=== PATIENT | female | born 1940 | race Caucasian/White ===

== ENCOUNTER 2020-02-08 08:41 | Outpatient (CLI) | payer MEDICARE, BC, SELFPAY ==
--- NOTE | ~2020-02-08 | US_ITS ---
EXAMINATION: US right upper quadrant DATE: 02/08/2020 09:28 INDICATION: Liver cirrhosis. TECHNIQUE: Multiple grayscale and Doppler ultrasound images of the abdomen were obtained. COMPARISON: Ultrasound 07/15/2019 FINDINGS: The visualized portions of the head, body, and tail of the pancreas are normal. The liver d emonstrates steatosis and surface nodularity, consistent with cirrhosis. There is normal flow in main portal vein. The gallbladder is absent. The common duct is normal and measures 6 mm. IMPRESSION: 1. Cirrhosis of the liver. Reviewed, dictated and finalized at location A. IMPRESSION: 1. Cirrhosis of the liver.
== END 2020-02-08 08:42 | disposition home or self-care (01) ==
PROVIDERS: PCP Nurse Practitioner Adult Health
DX: K74.60 Unspecified cirrhosis of liver (principal); K75.81 Nonalcoholic steatohepatitis (NASH)
CPT/HCPCS: 76705

== ENCOUNTER 2022-09-10 00:19 | Day surgery (SDC) | payer MEDICARE, BC, SELFPAY ==
[2022-08-25 15:08] VITALS: BMI 27.1
--- NOTE | 2022-09-08 15:29 | PM.HPGS ---
History of Present Illness History of Present Illness Consent: Risks, benefits, and alternatives have been discussed and questions answered. Patient agrees to proceed with procedure. Chief complaint: Hx of colon polyps Narrative: Maggie Erazo is a 81 year old female who has a history of polyps. She had 2 polyps removed about 3 years ago. She also has a history of ulcers. She is followed at [facility] for cirrhosis. On her last EGD she was found have grade 2 varices. Review of Systems Review of Systems: All systems reviewed & are unremarkable except as noted in HPI and below PMFSH Past Medical History Medical History Cirrhosis Diabetes Hypertension Social History Social History Smoking status: Never smoker Alcohol intake: never Substance use: never Living arrangements: with family Meds Home Medications and Allergies Home Medications Medication Instructions Recorded Confirmed Type ascorbic acid (vitamin C) 500 mg 500 mg PO DAILY 09/04/19 08/25/22 History capsule calcium-vitamins B6-B12-FA tablet 1 tablet PO DAILY 09/04/19 08/25/22 History cyclosporine 0.05 % eye drops in a 0.05 % ophthalmic (eye) BID 09/04/19 08/25/22 History dropperette (Restasis) montelukast 10 mg tablet 10 mg PO DAILY 09/04/19 08/25/22 History unnyrrosgpod-Pc-qpxj-minerals 1 tablet PO DAILY 09/04/19 08/25/22 History (Multiple Vitamin, Womens tablet) omeprazole 40 mg capsule,delayed 20 mg PO DAILY 09/04/19 08/25/22 History release losartan 25 mg tablet 25 mg PO DAILY 09/13/19 08/25/22 History aspirin 81 mg tablet,delayed 81 mg PO DAILY 10/21/21 09/10/22 History release levothyroxine 125 mcg tablet 75 mcg PO DAILY 10/21/21 08/25/22 History losartan 50 mg tablet 50 mg PO DAILY 10/21/21 08/25/22 History nadolol 40 mg tablet (Corgard) 40 mg PO DAILY 10/21/21 08/25/22 History metformin 500 mg tablet,extended 500 mg PO DAILY 08/25/22 08/25/22 History release 24 hr Allergies Allergy/AdvReac Type Severity Reaction Status Date / Time codeine Allergy Intermediate ABDOMINAL Verified 09/10/22 07:05 CRAMPING/DISTRESS adhesive tape AdvReac Unknown RASH, Verified 09/10/22 07:05 REDNESS Exam Const: General: alert Orientation/consciousness: patient oriented x3 Resp: Auscultation: clear to auscultation bilaterally Cardio: Rhythm: regular rhythm GI: GI Palp: Yes Soft to palpation and No Tenderness to palpation present (GI) Neuro: General: patient oriented x3 Assessment and Plan Assessment and plan (1) Personal history of colonic polyps: Code(s): Z86.010 - Personal history of colonic polyps Status: Acute Assessment and Plan: Colonoscopy with possible biopsy or polypectomy or cautery or injection of substances. (2) Esophageal varices: Code(s): I85.00 - Esophageal varices without bleeding Status: Acute Assessment and Plan: EGD with possible biopsy or dilatation or cautery.
[2022-09-10 07:08] VITALS: BP 160/63; PULSE 73; RESP 18; TEMP 36.1; O2SAT 100; BMI 26.9
[2022-09-10] MEDS: LACTATED RINGERS 1,000 ML 150 ML IV CONT (07:12)
--- NOTE | 2022-09-10 07:37 | P.PNAN_ITS ---
Anes - Initial Pre Proc Eval Procedure: Operation Date: 09/10/22 08:00 Proposed Procedures p Screening Colonoscopy - Zechariah Garcia MD Date/Time: 09/10/22 07:37 Surgeon: Zechariah Garcia MD Pre Op Diagnosis: Hx of colon polyps Patient Data Age: 81 Gender: F Height: 1.6 m Weight: 68.9 kg Last Vital Signs Temp 36.1 C L 09/10/22 07:08 Pulse 73 09/10/22 07:08 Resp 18 09/10/22 07:08 BP 160/63 H 09/10/22 07:08 Pulse Ox 100 09/10/22 07:08 O2 Del Method Room Air 09/10/22 07:08 Allergies Allergy/AdvReac Type Severity Reaction Status Date / Time codeine Allergy Intermediate ABDOMINAL Verified 09/10/22 07:05 CRAMPING/DISTRESS adhesive tape AdvReac Unknown RASH, Verified 09/10/22 07:05 REDNESS Home Medications Medication Instructions Recorded Confirmed Type ascorbic acid (vitamin C) 500 mg 500 mg PO DAILY 09/04/19 08/25/22 History capsule calcium-vitamins B6-B12-FA tablet 1 tablet PO DAILY 09/04/19 08/25/22 History cyclosporine 0.05 % eye drops in a 0.05 % ophthalmic (eye) BID 09/04/19 08/25/22 History dropperette (Restasis) montelukast 10 mg tablet 10 mg PO DAILY 09/04/19 08/25/22 History wjbyfiitxezl-Jq-cnpe-minerals 1 tablet PO DAILY 09/04/19 08/25/22 History (Multiple Vitamin, Womens tablet) omeprazole 40 mg capsule,delayed 20 mg PO DAILY 09/04/19 08/25/22 History release losartan 25 mg tablet 25 mg PO DAILY 09/13/19 08/25/22 History aspirin 81 mg tablet,delayed 81 mg PO DAILY 10/21/21 09/10/22 History release levothyroxine 125 mcg tablet 75 mcg PO DAILY 10/21/21 08/25/22 History losartan 50 mg tablet 50 mg PO DAILY 10/21/21 08/25/22 History nadolol 40 mg tablet (Corgard) 40 mg PO DAILY 10/21/21 08/25/22 History metformin 500 mg tablet,extended 500 mg PO DAILY 08/25/22 08/25/22 History release 24 hr Patient hx anesthesia problems: other (slow to awaken) Family hx anesthesia problems: none Results Review: All pre-operative results and documents have been reviewed as part of the pre- operative evaluation. [facility] Past Medical History Medical History Cirrhosis Diabetes Hypertension Social History Social History Smoking status: Never smoker Alcohol intake: never Substance use: never Living arrangements: with family Anes - Eval Final PreProcedure Day of Procedure 09/10/22 07:37 Patient weight: overweight Heart: regular rate and rhythm Lungs: clear to auscultation Airway: Mallampati scale class II Neurological: other (alert) ASA classification: III Emergent: no Anesthetic plan: proceed Anesthesia type and monitoring: general GIVS and standard monitoring Results Review: All pre-operative results and documents have been reviewed as part of the pre- operative evaluation. Informed Consent: The patient's anesthetic plan and its attendant risks and benefits were discussed with the patient/family/POA. Questions were solicited and answers provided to the satisfaction of the patient/family/POA.
[2022-09-10 07:42] LABS: Glucose Point of Care 151 mg/dl (65-105)
--- NOTE | 2022-09-10 08:09 | SUR.OPER ---
EGD end 802 COLONOSCOPY START 810
--- NOTE | 2022-09-10 08:29 | SUR.OPER ---
1 Resolution clip placed on rectal polyp fell off,retrieved with biopsy forceps. Another resolution clip was placed.
[2022-09-10 08:32] VITALS: BP 118/60; PULSE 86; RESP 17; O2SAT 98
[2022-09-10 08:42] VITALS: BP 130/68; PULSE 66; RESP 13; O2SAT 99
[2022-09-10 08:52] VITALS: BP 129/67; PULSE 64; RESP 15; O2SAT 99
== END 2022-09-10 09:08 | disposition home or self-care (01) ==
PROVIDERS: Visit Provider Internal Medicine Gastroenterology
PROC: 0DJ08ZZ Inspection of Upper Intestinal Tract, Via Natural or Artificial Opening Endoscopic (ICD-10-PCS; CPT 43235; principal; 2022-09-10 08:00)
DX: Z12.11 Encounter for screening for malignant neoplasm of colon (principal); K62.1 Rectal polyp; K57.30 Diverticulosis of large intestine without perforation or abscess without bleeding; K64.8 Other hemorrhoids; K74.60 Unspecified cirrhosis of liver; I85.00 Esophageal varices without bleeding; K31.7 Polyp of stomach and duodenum; E11.9 Type 2 diabetes mellitus without complications; I10 Essential (primary) hypertension; Z79.82 Long term (current) use of aspirin; Z79.84 Long term (current) use of oral hypoglycemic drugs
CPT/HCPCS: 45385; 43251; 82948; 88305; J2704; J7120

== ENCOUNTER 2022-10-15 09:47 | Outpatient (CLI) | payer MEDICARE, BC, SELFPAY ==
[2022-10-15 10:46] LABS: Hematocrit 35.2 % (37.0-47.0); Hemoglobin 11.3 g/dL (12.0-15.0); Immature Platelet Fraction Pct 3.5 % (0.9-11.2); Mean Corpuscular HGB Conc 32.1 g/dl (32-36); Mean Corpuscular Hemoglobin 29.8 pg (26-34); Mean Corpuscular Volume 92.9 fl (80-100); Mean Platelet Volume 10.4 fl (7.4-10.4); Platelet Count Result 103 k/mm3 (150-375); Red Blood Count 3.79 M/mm3 (4.2-5.4); Red Cell Distribution Width 14.4 % (11.5-14.5); White Blood Count 3.5 K/mm3 (4.5-10.0)
[2022-10-15 11:28] LABS: Free T4 Free Thyroxine 1.25 ng/mL (0.78-2.19)
[2022-10-15 11:50] LABS: Creatinine Urine 23.6 mg/dL
[2022-10-15 11:53] LABS: Hemoglobin A1C 6.7 % (<5.7)
[2022-10-15 11:53] LABS: MALB Creatinine Ratio 58.5 mg/g (0-30); Microalbumin Urine Random 13.8 mg/L (0-16.7)
[2022-10-15 12:42] LABS: Alanine Aminotransferase 34 U/L (6-35); Albumin Level 4.1 g/dL (3.5-5.1); Alkaline Phosphatase 91 U/L (38-126); Anion Gap 9 mmol/L (8-16); Aspartate Amino Transferase 58 U/L (14-36); Bilirubin,Total 1.9 mg/dL (0.2-1.3); Blood Urea Nitrogen 13 mg/dL (7-17); Calcium 8.9 mg/dL (8.4-10.2); Carbon Dioxide 27 mmol/L (22-30); Chloride 104 mmol/L (98-107); Cholesterol 157 mg/dL (0-200); Estimated Glomerular Filt Rate > 60; Glucose 139 mg/dL (65-110); HDL Direct 51 mg/dL; Potassium 4.2 mmol/L (3.4-5.0); Sodium 140 mmol/L (137-145); Triglycerides 94 mg/dL (<150)
[2022-10-15 12:52] LABS: LDL Cholesterol Direct 75 mg/dL
== END 2022-10-15 09:48 | disposition home or self-care (01) ==
PROVIDERS: PCP Internal Medicine; Visit Provider Internal Medicine
DX: E11.9 Type 2 diabetes mellitus without complications (principal); E78.5 Hyperlipidemia, unspecified; E03.9 Hypothyroidism, unspecified; I10 Essential (primary) hypertension; D64.9 Anemia, unspecified
CPT/HCPCS: 36415; 80053; 80061; 82043; 83036; 84439; 84443; 85027; 85055

== ENCOUNTER 2022-11-02 09:27 | Outpatient (CLI) | payer MEDICARE, BC, SELFPAY ==
[2022-11-02 10:12] LABS: Basophils Percent Auto 0.6 % (0.2-1.2); Eosinophils Absolute Auto 0.1 K/mm3 (0-0.3); Hematocrit 33.8 % (37.0-47.0); Hemoglobin 10.8 g/dL (12.0-15.0); Immature Platelet Fraction Pct 2.8 % (0.9-11.2); Lymphocytes Absolute Auto 0.87 K/mm3 (0.9-3.2); Mean Corpuscular Hemoglobin 28.8 pg (26-34); Mean Corpuscular Volume 90.1 fl (80-100); Mean Platelet Volume 10.1 fl (7.4-10.4); Monocytes Absolute Auto 0.3 K/mm3 (0.1-0.6); Monocytes Percent Auto 8.7 % (2.6-8.5); Neutrophils Absolute Auto 2.1 K/mm3 (1.3-6.7); Neutrophils Percent Auto 61.7 % (45.5-73.1); Platelet Count Result 94 k/mm3 (150-375); Red Blood Count 3.75 M/mm3 (4.2-5.4); Red Cell Distribution Width 14.1 % (11.5-14.5); White Blood Count 3.4 K/mm3 (4.5-10.0)
[2022-11-02 10:25] LABS: Alanine Aminotransferase 34 U/L (6-35); Albumin Level 3.9 g/dL (3.5-5.1); Alkaline Phosphatase 82 U/L (38-126); Anion Gap 7 mmol/L (8-16); Aspartate Amino Transferase 54 U/L (14-36); Bilirubin,Total 1.7 mg/dL (0.2-1.3); Blood Urea Nitrogen 14 mg/dL (7-17); Calcium 8.9 mg/dL (8.4-10.2); Carbon Dioxide 28 mmol/L (22-30); Chloride 102 mmol/L (98-107); Estimated Glomerular Filt Rate > 60; Glucose 125 mg/dL (65-110); Potassium 3.8 mmol/L (3.4-5.0); Sodium 137 mmol/L (137-145)
[2022-11-02 10:28] LABS: INR 1.2; Prothrombin Time 14.4 Seconds (11.1-14.7)
[2022-11-02 10:44] LABS: Iron 78 ug/dL (37-170)
[2022-11-02 10:54] LABS: Percent Iron Saturation 16 % (20-50)
[2022-11-06 16:07] LABS: Alpha Fetoprotein Tumor Marker 2.9 ng/mL (<6.1)
== END 2022-11-02 09:28 | disposition home or self-care (01) ==
PROVIDERS: PCP Internal Medicine
DX: R10.9 Unspecified abdominal pain (principal); K75.81 Nonalcoholic steatohepatitis (NASH); K74.60 Unspecified cirrhosis of liver
CPT/HCPCS: 36415; 80053; 82105; 82248; 82728; 83540; 83550; 85025; 85055; 85610

== ENCOUNTER → 2022-12-28 14:13 | Outpatient (CLI) | payer MEDICARE, BC, SELFPAY ==
--- NOTE | ~2022-12-28 | MM_ITS ---
EXAMINATION: MM screening monty BI w renata HISTORY: Screening TECHNIQUE: Craniocaudal and mediolateral oblique 3-D tomosynthesis images were obtained and synthetic 2-D images were generated. CAD analysis was submitted and interpreted. COMPARISON: No prior mammogram is available for comparison at this institution. BREAST PARENCHYMAL COMPOSITION: There are scattered areas of fibroglandular density. FINDINGS: There is no evidence of suspicious mass, calcification, or architectural distortion to sugg est malignancy in either breast. There has been no suspicious interval change. IMPRESSION: 1. No mammographic evidence of malignancy. 2. Recommend routine screening mammography in one year. BI-RADS Category 1: Negative Reviewed, dictated and finalized at location A.
== END ==
PROVIDERS: PCP Internal Medicine; Visit Provider Internal Medicine
DX: Z12.31 Encounter for screening mammogram for malignant neoplasm of breast (principal)
CPT/HCPCS: 77063; 77067

== ENCOUNTER 2023-01-25 09:09 | Outpatient (CLI) | payer MEDICARE, BC, SELFPAY ==
--- NOTE | ~2023-01-25 | US_ITS ---
Limited Abdominal Sonogram: Real-time sonographic imaging of the right upper quadrant was performed. Clinical History: Cirrhosis Findings: The liver appears mildly nodular in contour, with no evidence of mass lesion or bile duct dilatation. Main portal vein demonstrates normal direction of flow. The gallbladder is absent, compat ible prior cholecystectomy. The common bile duct measures 7 mm. The visualized pancreas, aorta, and IVC are unremarkable. Impression: Probable cirrhotic liver. Status post cholecystectomy. Reviewed, dictated and finalized at location . Impression: Probable cirrhotic liver. Status post cholecystectomy.
== END 2023-01-25 09:10 | disposition home or self-care (01) ==
PROVIDERS: PCP Internal Medicine; Visit Provider Internal Medicine Gastroenterology
DX: K75.81 Nonalcoholic steatohepatitis (NASH) (principal); K74.60 Unspecified cirrhosis of liver
CPT/HCPCS: 76705

== ENCOUNTER 2023-02-08 08:37 | Outpatient (CLI) | payer MEDICARE, BC, SELFPAY ==
[2023-02-08 09:07] LABS: Basophils Percent Auto 0.7 % (0.2-1.2); Eosinophils Absolute Auto 0.1 K/mm3 (0-0.3); Eosinophils Percent Auto 2.8 % (0-4.4); Hematocrit 36.4 % (37.0-47.0); Immature Granulocyte Absolute 0.01 K/mm3 (0.00-0.031); Immature Granulocyte Percent A 0.3 % (0-0.5); Immature Platelet Fraction Pct 2.9 % (0.9-11.2); Lymphocytes Absolute Auto 0.71 K/mm3 (0.9-3.2); Lymphocytes Percent Auto 24.6 % (18.3-44.2); Mean Corpuscular Hemoglobin 31.7 pg (26-34); Mean Corpuscular Volume 96.3 fl (80-100); Mean Platelet Volume 9.8 fl (7.4-10.4); Monocytes Absolute Auto 0.2 K/mm3 (0.1-0.6); Monocytes Percent Auto 7.6 % (2.6-8.5); Neutrophils Absolute Auto 1.9 K/mm3 (1.3-6.7); Platelet Count Result 83 k/mm3 (150-375); Red Blood Count 3.78 M/mm3 (4.2-5.4); Red Cell Distribution Width 14.8 % (11.5-14.5); White Blood Count 2.9 K/mm3 (4.5-10.0)
[2023-02-08 09:24] LABS: Iron 82 ug/dL (37-170)
[2023-02-08 09:34] LABS: Percent Iron Saturation 20 % (20-50)
== END 2023-02-08 08:38 | disposition home or self-care (01) ==
PROVIDERS: PCP Family Medicine; Visit Provider Nurse Practitioner Family
DX: D69.6 Thrombocytopenia, unspecified (principal); I10 Essential (primary) hypertension; D64.9 Anemia, unspecified
CPT/HCPCS: 36415; 83540; 83550; 85025; 85055

== ENCOUNTER 2023-02-15 14:06 | Outpatient (CLI) | payer MEDICARE, BC, SELFPAY ==
[2023-02-15 14:51] LABS: Eosinophils Absolute Auto 0.1 K/mm3 (0-0.3); Eosinophils Percent Auto 3.3 % (0-4.4); Hematocrit 34.8 % (37.0-47.0); Hemoglobin 11.5 g/dL (12.0-15.0); Immature Granulocyte Absolute 0.01 K/mm3 (0.00-0.031); Immature Granulocyte Percent A 0.3 % (0-0.5); Immature Platelet Fraction Pct 2.9 % (0.9-11.2); Lymphocytes Absolute Auto 0.84 K/mm3 (0.9-3.2); Lymphocytes Percent Auto 27.9 % (18.3-44.2); Mean Corpuscular Hemoglobin 31.9 pg (26-34); Mean Corpuscular Volume 96.7 fl (80-100); Mean Platelet Volume 10.4 fl (7.4-10.4); Monocytes Absolute Auto 0.3 K/mm3 (0.1-0.6); Monocytes Percent Auto 9.6 % (2.6-8.5); Neutrophils Absolute Auto 1.7 K/mm3 (1.3-6.7); Neutrophils Percent Auto 57.9 % (45.5-73.1); Platelet Count Result 86 k/mm3 (150-375); Red Cell Distribution Width 14.6 % (11.5-14.5)
[2023-02-15 16:07] LABS: Folic Acid > 20.0 ng/mL (2.76->20)
[2023-02-15 16:27] LABS: Vitamin D 25 Hydroxy 59.4 ng/mL
[2023-02-16 11:37] LABS: Free T4 Free Thyroxine 1.27 ng/mL (0.78-2.19)
== END 2023-02-15 14:07 | disposition home or self-care (01) ==
LOC: ANHLAB 14:08
PROVIDERS: PCP Nurse Practitioner Family; Visit Provider Nurse Practitioner Family
DX: D69.6 Thrombocytopenia, unspecified (principal); I10 Essential (primary) hypertension; D64.9 Anemia, unspecified; E55.9 Vitamin D deficiency, unspecified
CPT/HCPCS: 36415; 82306; 82607; 82746; 84439; 84443; 85025; 85055

== ENCOUNTER 2023-04-12 10:41 | Outpatient (CLI) | payer MEDICARE, BC, SELFPAY ==
[2023-04-12 12:07] LABS: Basophils Percent Auto 0.7 % (0.2-1.2); Eosinophils Absolute Auto 0.1 K/mm3 (0-0.3); Eosinophils Percent Auto 3.2 % (0-4.4); Hematocrit 35.2 % (37.0-47.0); Hemoglobin 11.8 g/dL (12.0-15.0); Immature Granulocyte Absolute 0.01 K/mm3 (0.00-0.031); Immature Granulocyte Percent A 0.4 % (0-0.5); Immature Platelet Fraction Pct 3.7 % (0.9-11.2); Lymphocytes Absolute Auto 0.84 K/mm3 (0.9-3.2); Lymphocytes Percent Auto 29.9 % (18.3-44.2); Mean Corpuscular HGB Conc 33.5 g/dl (32-36); Mean Corpuscular Hemoglobin 32.6 pg (26-34); Mean Corpuscular Volume 97.2 fl (80-100); Mean Platelet Volume 10.5 fl (7.4-10.4); Monocytes Absolute Auto 0.2 K/mm3 (0.1-0.6); Monocytes Percent Auto 8.5 % (2.6-8.5); Neutrophils Absolute Auto 1.6 K/mm3 (1.3-6.7); Neutrophils Percent Auto 57.3 % (45.5-73.1); Platelet Count Result 76 k/mm3 (150-375); Red Blood Count 3.62 M/mm3 (4.2-5.4); Red Cell Distribution Width 14.2 % (11.5-14.5); White Blood Count 2.8 K/mm3 (4.5-10.0)
[2023-04-12 12:15] LABS: Alanine Aminotransferase 48 U/L (6-35); Albumin Level 3.9 g/dL (3.5-5.1); Alkaline Phosphatase 82 U/L (38-126); Anion Gap 6 mmol/L (8-16); Aspartate Amino Transferase 65 U/L (14-36); Bilirubin,Total 2.3 mg/dL (0.2-1.3); Blood Urea Nitrogen 17 mg/dL (7-17); Calcium 8.8 mg/dL (8.4-10.2); Carbon Dioxide 30 mmol/L (22-30); Chloride 103 mmol/L (98-107); Estimated Glomerular Filt Rate > 60; Glucose 134 mg/dL (65-110); Potassium 3.8 mmol/L (3.4-5.0); Sodium 139 mmol/L (137-145)
[2023-04-12 12:26] LABS: INR 1.1
[2023-04-12 12:48] LABS: Iron 160 ug/dL (37-170)
[2023-04-12 13:02] LABS: Percent Iron Saturation 39 % (20-50)
[2023-04-16 15:52] LABS: Alpha Fetoprotein Tumor Marker 3.2 ng/mL (<6.1)
== END 2023-04-12 10:42 | disposition home or self-care (01) ==
PROVIDERS: PCP Nurse Practitioner Family; Visit Provider Internal Medicine Gastroenterology
DX: K75.81 Nonalcoholic steatohepatitis (NASH) (principal); K74.60 Unspecified cirrhosis of liver
CPT/HCPCS: 36415; 80053; 82105; 82248; 82728; 83540; 83550; 85025; 85055; 85610

== ENCOUNTER → 2023-05-13 12:42 | Outpatient (CLI) | payer MEDICARE, BC, SELFPAY ==
--- NOTE | ~2023-05-13 | CT_ITS ---
EXAMINATION: CT sinus wo con DATE: 05/13/2023 13:04 INDICATION: Chronic sinusitis. TECHNIQUE: Computed tomography (CT) of the paranasal sinuses was performed without intravenous contra st. Iterative reconstruction technique was employed. The dose-length product was 352.81 mGy-cm. COMPARISON: Neck CT 11/20/2016 FINDINGS: The frontal sinuses are clear. There is complete opacification of the sphenoid sinuses and some of the posterior ethmoid air cells with thickening and sclerosis of the sinus hernandez, consistent with chronic sinusitis. There is moderate mucosal thickening in left maxillary sinus with thickening and sclerosis of the sinus hernandez, consistent with chronic sinusitis. Right maxillary sinus is clear. The nasal septum is at midline. The right ostiomeatal unit is patent. There are changes of left uncin ectomy. The left ostiomeatal unit is widely patent. IMPRESSION: 1. Chronic sinusitis. Reviewed, dictated and finalized at location L. IMPRESSION: 1. Chronic sinusitis.
== END ==
PROVIDERS: PCP Nurse Practitioner Family; Visit Provider Otolaryngology
DX: J32.9 Chronic sinusitis, unspecified (principal)
CPT/HCPCS: 70486

== ENCOUNTER 2023-07-19 17:44 | Observation (INO) | payer MEDICARE, BC, SELFPAY ==
[2023-07-19] VITALS (7 sets, daily range): BP systolic 150–186; BP diastolic 65–80; PULSE 67–94; RESP 14–24; TEMP 36.1–36.8; O2SAT 96–100; BMI 26.9
--- NOTE | ~2023-07-19 | XR_ITS ---
EXAMINATION: XR chest 2V Exam Date/Time: 07/19/2023 18:41 CDT HISTORY: dizziness, weakness Comparison: 06/03/2012. RESULT: Lines, tubes, and devices: None. Lungs and pleura: Low volume in the lateral view. Senescent change. Cardiomediastinal silhouette: Stable. Other: No acute osseous or upper abdominal finding. IMPRESSION: No acute cardiopulmonary process. Reviewed, dictated and finalized at location K.
--- NOTE | ~2023-07-19 | CT_ITS ---
EXAMINATION: CT abdomen pelvis w con DATE: 07/19/2023 21:22 INDICATION: abdominal distention TECHNIQUE: Computed tomography (CT) of the abdomen and pelvis was performed with intravenous contrast . Automated exposure control and iterative reconstruction technique were employed. The dose-length pr oduct was 611.02 mGy-cm. COMPARISON: 10/25/2014. FINDINGS: Lower thorax: Unremarkable Liver: Nodular border diffusely low density parenchyma. Right lobe scar small volume perihepatic flui d. Biliary/Gallbladder: Gallbladder is absent. No bile duct dilation. Pancreas: No mass or duct dilation. Spleen: Normal. Adrenals:No mass. Kidneys: No suspicious mass, obstructing stone, or hydronephrosis. GI tract: Moderate distal esophageal and gastric wall edema No small or large bowel dilation. Cecal w all edema. The appendix is not confidently visualized Diverticulosis without diverticulitis. Mesentery/Peritoneum: No ascites, mass, or free air. Upper abdominal varices. Retroperitoneum: No mass. Pelvis: Pelvic organs are within normal limits. Soft Tissues: Soft tissues and body wall unremarkable. Bones: No acute osseous finding. IMPRESSION: Moderate esophagitis/gastritis. Cirrhosis with portal hypertension. Cecal wall edema may be secondary to portal hypertension or infectious, inflammatory, or ischemic col itis. Reviewed, dictated and finalized at location K. IMPRESSION: Moderate esophagitis/gastritis. Cirrhosis with portal hypertension. Cecal wall edema may be secondary to portal hypertension or infectious, inflamm atory, or ischemic colitis.
--- NOTE | ~2023-07-19 | CT_ITS ---
EXAMINATION: CTA brain carotid DATE: 07/19/2023 21:10 INDICATION: neuro TECHNIQUE: Computed tomographic angiography (CTA) of the head and neck was performed with 100 mL Omni paque-350 intravenous contrast. Automated exposure control and iterative reconstruction technique wer e employed. The dose-length product was 939.67 mGy-cm. Maximum intensity projection and volume rende red 3D-reconstructions were created by the technologist on a separate workstation. COMPARISON: CT brain, same date. FINDINGS: CTA HEAD: No large vessel occlusion, aneurysm, high flow vascular malformation, nidus or extravasation. Persist ent origin of the left PONDMAN. Symmetric parenchymal enhancement. Patent cerebral veins. CTA NECK: Aortic arch and proximal great vessels: Normal arch anatomy. Mild arch calcification. Right common carotid, carotid bifurcation, and internal carotid artery: No plaque.There is 0% stenosi s of the proximal right internal carotid artery relative to normal distal artery lumen diameter (NASC ET criteria). Left common carotid, carotid bifurcation, and internal carotid artery: No plaque.There is 0% stenosis of the proximal left internal carotid artery relative to normal distal artery lumen diameter (NASCET criteria). Vertebral arteries: No significant plaque or stenosis. Hypoplastic right V4 segment. The left vertebr al artery is dominant. Other findings: Degenerative changes in the cervical spine. Acute on chronic sinusitis. IMPRESSION: No large vessel occlusion. No severe carotid or vertebral stenosis Reviewed, dictated and finalized at location K.
--- NOTE | ~2023-07-19 | MR_ITS ---
EXAMINATION: MR brain/brain stem wo/w con DATE: 07/20/2023 07:56 INDICATION: Stroke like symptoms. Dizziness. Vertigo. Diplopia. TECHNIQUE: Magnetic resonance imaging (MRI) of the brain and brainstem was performed without and with 14 mL MultiHance intravenous contrast. 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 There is no intracrania l hemorrhage, acute infarction, or abnormal intracranial mass lesion. The ventricles are normal in si ze. There is mucosal thickening in the paranasal sinuses. There are likely changes of ocular lens rep lacement surgeries. The mastoid air cells are normal. IMPRESSION: 1. 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 Reviewed, dictated and finalized at location A.
--- NOTE | ~2023-07-19 | CT_ITS ---
EXAMINATION: CT brain wo con DATE: 07/19/2023 18:47 INDICATION: dizziness, diplopia . TECHNIQUE: Computed tomography (CT) of the head was performed without intravenous contrast. The mA wa s adjusted according to patient size. Iterative reconstruction technique was employed. The dose-lengt h product was 605.33 mGy-cm. COMPARISON: 05/13/2023. FINDINGS: No acute intracranial hemorrhage or extra-axial fluid collection. No hydrocephalus, mass, or herniation. No acute ischemic infarct. Unremarkable dural venous sinus attenuation. No acute osseous abnormality. Aerated secretions in the partially opacified left frontal sinuses, partial opacification of multiple ethmoid air cells, complete opacification of the sphenoid sinuses with osseous sclerosis, moderate m ucosal thickening in the left maxillary sinus with osseous sclerosis, the remaining aerated spaces ar e clear. Moderate atrophy and chronic white matter change. Atherosclerotic intracranial calcification. Bilater al lens replacements. Bilateral basal ganglia calcification IMPRESSION: No acute intracranial process. Acute on chronic sinusitis. Reviewed, dictated and finalized at location K.
--- NOTE | 2023-07-19 17:52 | ECG_ITS ---
Measurements Intervals [place] Rate: 71 P: 27 MD: 198 QRS: 2 QRSD: 89 T: -7 QT: 413 QTc: 452 Interpretive Statements SINUS RHYTHM NONSPECIFIC T-WAVE ABNORMALITY NO PREVIOUS ECG AVAILABLE FOR COMPARISON Electronically Signed On 07-20-2023 15:55:03 CDT by Thony Leon M.D.
[2023-07-19 18:22] LABS: Basophils Percent Auto 0.9 % (0.2-1.2); Eosinophils Absolute Auto 0.1 K/mm3 (0-0.3); Eosinophils Percent Auto 2.7 % (0-4.4); Hemoglobin 12.2 g/dL (12.0-15.0); Immature Platelet Fraction Pct 2.9 % (0.9-11.2); Lymphocytes Absolute Auto 0.76 K/mm3 (0.9-3.2); Lymphocytes Percent Auto 22.7 % (18.3-44.2); Mean Corpuscular HGB Conc 33.9 g/dl (32-36); Mean Corpuscular Hemoglobin 32.5 pg (26-34); Mean Platelet Volume 10.7 fl (7.4-10.4); Monocytes Absolute Auto 0.2 K/mm3 (0.1-0.6); Monocytes Percent Auto 6.6 % (2.6-8.5); Neutrophils Absolute Auto 2.3 K/mm3 (1.3-6.7); Neutrophils Percent Auto 67.1 % (45.5-73.1); Platelet Count Result 87 k/mm3 (150-375); Red Blood Count 3.75 M/mm3 (4.2-5.4); Red Cell Distribution Width 13.6 % (11.5-14.5); White Blood Count 3.4 K/mm3 (4.5-10.0)
[2023-07-19 18:31] LABS: Alanine Aminotransferase 38 U/L (6-35); Alkaline Phosphatase 90 U/L (38-126); Anion Gap 9 mmol/L (8-16); Aspartate Amino Transferase 59 U/L (14-36); Bilirubin,Total 2.4 mg/dL (0.2-1.3); Blood Urea Nitrogen 16 mg/dL (7-17); Calcium 8.8 mg/dL (8.4-10.2); Carbon Dioxide 25 mmol/L (22-30); Chloride 101 mmol/L (98-107); Estimated CRCL calculation 46 ml/min; Estimated Glomerular Filt Rate > 60; Glucose 172 mg/dL (65-110); Potassium 3.6 mmol/L (3.4-5.0); Sodium 135 mmol/L (137-145)
[2023-07-19 18:40] LABS: Anisocytosis 1+ (NORMAL); Ovalocytes 1+ (NORMAL); Platelet Estimate Decreased (Adequate); Schistocytes None Seen (NORMAL)
[2023-07-19 18:50] LABS: Appearance Urine Clear (Clear); Bilirubin Urine Negative (Negative); Blood Urine Negative (Negative); Color Urine Yellow (Yellow); Glucose Urine UA Negative (Negative); Ketones Urine Trace mg/dL (Negative); Leukocyte Esterase Ur Negative LEU/UL (Negative); Nitrate Urine Negative (Negative); Protein Urine Negative (Negative); Urobilinogen Urine 0.2 mg/dL (<2.0)
[2023-07-19 18:52] LABS: Add Urine Microscopic? NO
--- NOTE | 2023-07-19 18:57 | ED.GENADULT ---
HPI - General Adult General Chief complaint: Weakness Stated complaint: visual changes. abd pain Time Seen by Provider: 07/19/23 18:56 History of Present Illness HPI narrative: Patient is an 82-year-old female with history of fatty liver disease here with multiple symptoms including dizziness, unsteadiness on her feet and double vision. Patient notes that she felt her normal self when she went to bed around 11 PM. This morning she noted some difficulty focusing her vision. These vision changes seem to be worse when she looks around and sees double, sometimes triple. She notes that throughout the day today she seemed to become progressively more unsteady on her feet and experiencing dizziness. She notes that her bilateral legs seem to be equally as weak. She denies prior stroke or ID. She takes a baby ASA. When her dizziness was severe, she did note some shortness of breath like she could not catch her breath. She additionally notes some diarrhea today. She endorses chronic diarrhea which seems to come and go. Her neurological symptoms began prior to her diarrhea. Related Data Home Medications Medication Instructions Recorded Confirmed cyclosporine 0.05 % eye drops in a 0.05 % ophthalmic (eye) BID 09/04/19 06/21/23 dropperette (Restasis) aspirin 81 mg tablet,delayed 81 mg PO DAILY 10/21/21 06/21/23 release nadolol 40 mg tablet (Corgard) 40 mg PO DAILY 10/21/21 06/21/23 ascorbic acid (vitamin C) 500 mg 500 mg PO DAILY 10/15/22 06/21/23 capsule Allergies Allergy/AdvReac Type Severity Reaction Status Date / Time codeine Allergy Intermediate ABDOMINAL Verified 07/19/23 18:13 CRAMPING/DISTRESS adhesive tape AdvReac Unknown RASH, Verified 07/19/23 18:13 REDNESS Review of Systems Review of Systems: All systems reviewed & are unremarkable except as noted in HPI and below PMFSH Past Medical History Medical History Chronic sinusitis Cirrhosis Colon polyp DM type 2 (diabetes mellitus, type 2) Dry eyes, bilateral Dyslipidemia Esophageal varices GERD (gastroesophageal reflux disease) Hypertension Hypothyroidism Lumbar degenerative disc disease Osteoarthritis Skin cancer of face Thrombocytopenia Urinary incontinence Varicose vein of leg Surgical History Surgical History H/O arthroscopic knee surgery H/O sinus surgery History of cataract surgery Hx of appendectomy S/P cholecystectomy Family History Family History Father Hypertension Mother Cerebrovascular accident Valvular heart disease Diabetes mellitus Hypertension Heart disease Daughter Breast cancer Diabetes mellitus Son Hypertension Sibling Diabetes mellitus Daughter Breast cancer Diabetes mellitus Hypertension Grandparent Alcoholism Diabetes mellitus Social History Social History Smoking status: Never smoker Alcohol intake: never Substance use: never Substance use type: does not use Lack of Transportation: No Lack of Food: Never True Current Housing: I Have Housing Concerned About Future Housing: No Difficulty Paying Gas/Electric Bills: No Difficulty Paying for Meds: No Currently Unemployed: No Education: Trade/Vocational Certificate Difficulty w/ Childcare or Family Care: No Living arrangements: with family Exam Narrative: GENERAL: Well-appearing, well-nourished, and in no acute distress. HEAD: Normocephalic, atraumatic. EYES: PERRLA and EOMI. ENT: Nares clear. Mucous membranes moist. NECK: Supple. CHEST: Clear to auscultation. No respiratory distress. HEART: Regular rate and rhythm. Normal peripheral pulses. ABDOMEN: Soft, nontender, nondistended. EXTREMITIES: Normal range of motion. No edema. SKIN: Warm, dry, no rash. NEURO: No focal deficits.
--- NOTE | 2023-07-19 19:08 | PC.NURSE ---
Assumed care of pt from RUBEN Devries at this time.
[2023-07-19] MEDS: MECLIZINE HCL 25 MG TABLET PO (20:40)
--- NOTE | 2023-07-19 20:42 | PC.NURSE ---
Pt to CT at this time.
[2023-07-19 21:03] LABS: Troponin I < 0.012 ng/mL (0.000-0.034)
[2023-07-19 21:31] LABS: Glucose Point of Care 144 mg/dl (65-105)
[2023-07-19 22:13] LABS: Influenza A QL RT-PCR Negative (Negative); Influenza B QL RT-PCR Negative (Negative); RSV RNA, RT-PCR Negative (Negative); SARS-CoV-2 RNA PCR Negative (Negative)
--- NOTE | 2023-07-19 22:16 | PM.IMHP ---
H&P: HPI History of Present Illness Date/Time: 07/19/23 22:16 Chief Complaint: Patient brought to the ER for evaluation by her for dizziness, double vision and unsteady gait Narrative: She is a very pleasant 82 years old white female who is complaining of multiple symptoms. She felt her normal self when she went to bed around 11:00 p.m. last night. When she woke up in the morning, she had some difficulty focusing her vision. The vision changes seem to worsen when she looks around and was seeing doubles or triples throughout the day. She became progressively more unsteady on her feet as the day went along and experienced dizziness. She takes a baby aspirin daily. symptoms got worse to a point that she came to the ER for evaluation with her . Workup was done which has been negative so far. She has been placed under observation for evaluation of stroke-like symptoms and neurology evaluation in am. Review of Systems Review of Systems: she denies any chest pain, palpitation, fever rigor chills, nausea vomiting, abdominal pain or falls All systems reviewed & are unremarkable except as noted in HPI and below PMFSH Past Medical History Medical History Chronic sinusitis Cirrhosis Colon polyp DM type 2 (diabetes mellitus, type 2) Dry eyes, bilateral Dyslipidemia Esophageal varices GERD (gastroesophageal reflux disease) Hypertension Hypothyroidism Lumbar degenerative disc disease Osteoarthritis Skin cancer of face Thrombocytopenia Urinary incontinence Varicose vein of leg Surgical History Surgical History H/O arthroscopic knee surgery H/O sinus surgery History of cataract surgery Hx of appendectomy S/P cholecystectomy Family History Family History Father Hypertension Mother Cerebrovascular accident Valvular heart disease Diabetes mellitus Hypertension Heart disease Daughter Breast cancer Diabetes mellitus Son Hypertension Sibling Diabetes mellitus Daughter Breast cancer Diabetes mellitus Hypertension Grandparent Alcoholism Diabetes mellitus Social History Social History Smoking status: Never smoker Alcohol intake: never Substance use: never Substance use type: does not use Lack of Transportation: No Lack of Food: Never True Current Housing: I Have Housing Concerned About Future Housing: No Difficulty Paying Gas/Electric Bills: No Difficulty Paying for Meds: No Currently Unemployed: No Education: Trade/Vocational Certificate Difficulty w/ Childcare or Family Care: No Living arrangements: with family Meds Home Medications and Allergies Home Medications Medication Instructions Recorded Confirmed Type cyclosporine 0.05 % eye drops in a 0.05 % ophthalmic (eye) BID 09/04/19 06/21/23 History dropperette (Restasis) aspirin 81 mg tablet,delayed 81 mg PO DAILY 10/21/21 06/21/23 History release nadolol 40 mg tablet (Corgard) 40 mg PO DAILY 10/21/21 06/21/23 History ascorbic acid (vitamin C) 500 mg 500 mg PO DAILY 10/15/22 06/21/23 History capsule viayydfzrseg-Id-sgyb-minerals 1 tablet PO DAILY #30 tabs 01/13/23 06/21/23 Rx omeprazole 20 mg capsule,delayed 20 mg PO DAILY #30 caps 01/13/23 06/21/23 Rx release losartan 50 mg tablet 50 mg PO DAILY #90 tabs 01/18/23 06/21/23 Rx fluticasone propionate 50 2 spray intranasal DAILY #16 mL 02/15/23 06/21/23 Rx mcg/actuation nasal spray,suspension (Flonase Allergy Relief) levothyroxine 100 mcg tablet 100 mcg PO DAILY #90 tabs 02/16/23 06/21/23 Rx ferrous sulfate 325 mg (65 mg 325 mg PO .every other day #15 tabs 03/15/23 06/21/23 Rx iron) tablet mupirocin 2 % topical ointment 1 applic topical .COMPLEX #22 grams 04/01/23 06/21/23 Rx metformin 500 mg tablet,extended 1,000 mg PO DA
--- NOTE | 2023-07-19 23:54 | ADMGEN ---
This patient, Maggie Erazo, was admitted to [facility] Surg Room 302-01 at 2315. Patient/family oriented to hospital policies and general routines including ID bracelet, bed and alarms, visiting hours, pain management, procedures, bathroom and other care routines, personal items, smoking policy, room service/diet, and visiting hours. Information on how to activate the Rapid Response Team has been discussed. Patient/Family are encouraged to report perceived risks to care and to ask questions if they do not understand what they are told or what they should do.
[2023-07-20] VITALS: PULSE 73
[2023-07-20 01:01] LABS: Troponin I < 0.012 ng/mL (0.000-0.034)
[2023-07-20 04:00] VITALS: BP 145/54; PULSE 63; PULSE 70; RESP 18; TEMP 36.7; O2SAT 96
[2023-07-20] MEDS: LEVOTHYROXINE SODIUM 100 MCG TABLET PO (05:32)
[2023-07-20 06:34] LABS: Basophils Percent Auto 1.1 % (0.2-1.2); Eosinophils Absolute Auto 0.1 K/mm3 (0-0.3); Eosinophils Percent Auto 2.9 % (0-4.4); Hematocrit 33.3 % (37.0-47.0); Hemoglobin 11.2 g/dL (12.0-15.0); Immature Platelet Fraction Pct 2.9 % (0.9-11.2); Lymphocytes Absolute Auto 0.96 K/mm3 (0.9-3.2); Mean Corpuscular HGB Conc 33.6 g/dl (32-36); Mean Corpuscular Hemoglobin 32.3 pg (26-34); Mean Platelet Volume 10.6 fl (7.4-10.4); Monocytes Absolute Auto 0.3 K/mm3 (0.1-0.6); Monocytes Percent Auto 9.1 % (2.6-8.5); Neutrophils Absolute Auto 1.4 K/mm3 (1.3-6.7); Neutrophils Percent Auto 51.9 % (45.5-73.1); Platelet Count Result 78 k/mm3 (150-375); Red Blood Count 3.47 M/mm3 (4.2-5.4); Red Cell Distribution Width 13.2 % (11.5-14.5); White Blood Count 2.7 K/mm3 (4.5-10.0)
[2023-07-20 06:45] LABS: Anion Gap 6 mmol/L (8-16); Blood Urea Nitrogen 14 mg/dL (7-17); Calcium 8.7 mg/dL (8.4-10.2); Carbon Dioxide 26 mmol/L (22-30); Chloride 106 mmol/L (98-107); Estimated CRCL calculation 51 ml/min; Estimated Glomerular Filt Rate > 60; Glucose 101 mg/dL (65-110); Potassium 3.3 mmol/L (3.4-5.0); Sodium 138 mmol/L (137-145)
[2023-07-20 06:57] LABS: Troponin I < 0.012 ng/mL (0.000-0.034)
[2023-07-20 07:34] LABS: Anisocytosis 1+ (NORMAL); Ovalocytes 1+ (NORMAL); Platelet Estimate Decreased (Adequate); Schistocytes None Seen (NORMAL)
[2023-07-20 08:42] VITALS: PULSE 67
[2023-07-20] MEDS: nadoloL 20 MG TABLET 40 MG PO (08:42)
[2023-07-20] MEDS: cycloSPORINE 0.4 ML OPHTH SOLUTION 1 DROP EACH EYE (08:43)
[2023-07-20] MEDS: LOSARTAN POTASSIUM 50 MG TABLET PO (08:43)
--- NOTE | 2023-07-20 09:01 | PM.IMPN ---
Progress Note: A&P Assessment and Plan (1) Stroke-like symptoms: Code(s): R29.90 - Unspecified symptoms and signs involving the nervous system Status: Acute Assessment and Plan: Consult neurology pending MRI with and without contrast showed an old infarct the left frontal lobe, nonacute Head and neck CTA without any carotid stenosis or vessel occlusion noted Echo with bubble study ordered and pending (2) DM type 2 (diabetes mellitus, type 2): Code(s): E11.9 - Type 2 diabetes mellitus without complications Status: Acute Assessment and Plan: Accu-Cheks, sliding scale insulin, check A1c Blood glucose reviewed 07/20 (3) Hypertension: Code(s): I10 - Essential (primary) hypertension Status: Acute Assessment and Plan: Blood pressure reviewed 07/20 (4) Hypothyroidism: Code(s): E03.9 - Hypothyroidism, unspecified Status: Acute Assessment and Plan: TSH within normal limits, continue home levothyroxine (5) GERD (gastroesophageal reflux disease): Code(s): K21.9 - Gastro-esophageal reflux disease without esophagitis Status: Acute Assessment and Plan: Continue home PPI Moderate esophagitis/gastritis noted on CT (6) Thrombocytopenia: Code(s): D69.6 - Thrombocytopenia, unspecified Status: Acute Assessment and Plan: Monitor daily, hold aspirin for now Will need to restart this is in his platelets are over 80 due to possible TIA/CVA Likely secondary to cirrhosis with portal hypertension, noted on CT scan (7) Hypokalemia: Code(s): E87.6 - Hypokalemia Status: Acute Assessment and Plan: Replete and recheck Check magnesium (8) Cirrhosis: Code(s): K74.60 - Unspecified cirrhosis of liver Status: Acute Assessment and Plan: Monitor thrombocytopenia, noted portal hypertension as well as cecal wall edema Plan DVT prophylaxis with SCDs GI prophylaxis with PPI Code status full code Subjective Date/time seen: 07/20/23 09:01 Interval history: 82-year-old female with history of diabetes monitor comorbidities presenting with vision changes concerning for TIA/CVA. No overnight events noted. No chest pain or shortness of breath. No nausea, vomiting or diarrhea. No fevers or chills. Review of Systems Review of Systems: 12 point review of systems was assessed and was negative except as noted in the HPI Exam Narrative: General: No acute distress, alert and oriented per baseline HEENT: Atraumatic, normocephalic, mucous membranes moist CV: Regular rate and rhythm, S1, S2 Lungs: Clear to auscultation bilaterally, no rales or crackles noted, no wheezes, good air entry Abdomen: Soft, nontender, nondistended Extremities: Normal to inspection Skin: No rashes noted, no lesions or wounds seen Psych: Euthymic, normal affect Objective Data Vital Signs Vital Signs: Vital Signs - 24 hr 07/19/23 17:46 07/19/23 18:11 07/19/23 18:59 Temperature 98.3 F Pulse Rate 94 73 69 Respiratory Rate 16 14 Blood Pressure 186/80 H 174/79 H Pulse Oximetry 100 99 Oxygen Delivery Room Air 07/19/23 19:22 07/19/23 20:02 07/19/23 21:49 Temperature Pulse Rate 67 80 Respiratory Rate 24 H 16 14 Blood Pressure 180/69 H 150/69 H 176/69 H Pulse Oximetry 96 97 100 Oxygen Delivery 07/20/23 00:37 07/20/23 00:00 07/19/23 23:15 Temperature 96.9 F L Pulse Rate 73 76 Respiratory Rate 18 Blood Pressure 177/65 H Pulse Oximetry 98 Oxygen Delivery Room Air 07/20/23 04:00 07/20/23 04:00 07/20/23 08:42 Temperature 98.1 F Pulse Rate 70 63 67 Respiratory Rate 18 Blood Pressure 145/54 H Pulse Oximetry 96 Oxygen Delivery Meds/Results Medications: Active Medications Generic Name Dose Route Start Last Admin Trade Name Freq PRN Reason Stop Dose Admin Acetaminophen 650 mg 07/19/23 22:31 Acetaminop
[2023-07-20 09:33] LABS: Magnesium 1.7 mg/dL (1.6-2.3)
--- NOTE | 2023-07-20 10:28 | PCSTNOTE ---
Please refer to the Bedside Swallow Evaluation in the EMR. Please note, silent aspiration cannot be ruled out at bedside.
[2023-07-20 10:59] VITALS: O2SAT 98
[2023-07-20] MEDS: THERAPEUTIC MULTIVITAMINS/MINERALS TAB (*BKC) 1 TABLET PO (11:54)
[2023-07-20] MEDS: POTASSIUM CHLORIDE 20 MEQ ER TABLET 40 MEQ PO (11:55)
[2023-07-20 12:00] VITALS: BP 115/57; PULSE 63; RESP 16; TEMP 36.7; O2SAT 100
[2023-07-20 14:00] VITALS: BP 115/57; PULSE 63; RESP 16; TEMP 36.7; O2SAT 100
--- NOTE | 2023-07-20 14:27 | PM.DS ---
DS: Admitting Diagnosis Discharge Date 07/20/23 Admitting Diagnosis dizziness, blurry vision DS: Discharge Diagnosis Discharge Diagnosis (1) Stroke-like symptoms: Code(s): R29.90 - Unspecified symptoms and signs involving the nervous system Status: Acute Assessment and Plan: Consult neurology pending MRI with and without contrast showed an old infarct the left frontal lobe, nonacute Head and neck CTA without any carotid stenosis or vessel occlusion noted Echo with bubble study ordered and pending (2) DM type 2 (diabetes mellitus, type 2): Code(s): E11.9 - Type 2 diabetes mellitus without complications Status: Acute Assessment and Plan: Accu-Cheks, sliding scale insulin, check A1c Blood glucose reviewed 07/20 (3) Hypertension: Code(s): I10 - Essential (primary) hypertension Status: Acute Assessment and Plan: Blood pressure reviewed 07/20 (4) Hypothyroidism: Code(s): E03.9 - Hypothyroidism, unspecified Status: Acute Assessment and Plan: TSH within normal limits, continue home levothyroxine (5) GERD (gastroesophageal reflux disease): Code(s): K21.9 - Gastro-esophageal reflux disease without esophagitis Status: Acute Assessment and Plan: Continue home PPI Moderate esophagitis/gastritis noted on CT (6) Thrombocytopenia: Code(s): D69.6 - Thrombocytopenia, unspecified Status: Acute Assessment and Plan: Monitor daily, hold aspirin for now Will need to restart this is in his platelets are over 80 due to possible TIA/CVA Likely secondary to cirrhosis with portal hypertension, noted on CT scan (7) Hypokalemia: Code(s): E87.6 - Hypokalemia Status: Acute Assessment and Plan: Replete and recheck Check magnesium (8) Cirrhosis: Code(s): K74.60 - Unspecified cirrhosis of liver Status: Acute Assessment and Plan: Monitor thrombocytopenia, noted portal hypertension as well as cecal wall edema Plan DVT prophylaxis with SCDs GI prophylaxis with PPI Code status full code DS: Summary Hospital Course Hospital Course: 82-year-old female with history of diabetes monitor comorbidities presenting with vision changes concerning for TIA/CVA. Patient reports dizziness, lightheadedness, difficulty feeling balance when she 1st stands up and turns her head too quickly. She has been seeing ENT outpatient and told this is secondary to her sinus blockages as well as inner ear concerns. She has already been referred to [place] for a sinus specialist for sinus surgery. Symptoms completely resolved with meclizine. She was discharged in stable condition with close outpatient follow-up. Please see above and med rec for details. Time Spent with Patient Time attestation: Total time spent providing and/or coordinating discharge services: Exam Narrative: General: No acute distress, alert and oriented per baseline HEENT: Atraumatic, normocephalic, mucous membranes moist CV: Regular rate and rhythm, S1, S2 Lungs: Clear to auscultation bilaterally, no rales or crackles noted, no wheezes, good air entry Abdomen: Soft, nontender, nondistended Extremities: Normal to inspection Skin: No rashes noted, no lesions or wounds seen Psych: Euthymic, normal affect DS: Data Data Completed and Pending Labs on day of discharge: Labs from last 24 hours 07/20/23 07/20/23 07/19/23 05:51 00:19 21:32 WBC 2.7 L RBC 3.47 L Hgb 11.2 L Hct 33.3 L MCV 96.0 MCH 32.3 MCHC 33.6 RDW 13.2 Plt Count 78 L MPV 10.6 H Immature Gran % (Auto) 0.0 Neut % (Auto) 51.9 Lymph % (Auto) 35.0 [place] % (Auto) 9.1 H Eos % (Auto) 2.9 Baso % (Auto) 1.1 Lymph # (Auto) 0.96 [place] # (Auto) 0.3 Eos # (Auto) 0.1 Baso # (Auto) 0.0 Abs Immat Gran (auto) 0.00 Absolute Neuts (auto) 1.4 Absolute Nucleated RBC 0.0
== END 2023-07-20 15:45 | disposition home or self-care (01) ==
LOC: ANHED 22:21 → ANH3MEDSUR 22:58
PROVIDERS: Emergency Medicine; Admitting Provider Family Medicine; Emergency Provider Student in an Organized Health Care Education/Training Program; PCP Nurse Practitioner Family; Visit Provider Student in an Organized Health Care Education/Training Program
DX: R29.90 Unspecified symptoms and signs involving the nervous system (principal); M62.81 Muscle weakness (generalized); R42 Dizziness and giddiness; H53.2 Diplopia; R26.81 Unsteadiness on feet; J32.9 Chronic sinusitis, unspecified; K76.6 Portal hypertension; K74.60 Unspecified cirrhosis of liver; K76.0 Fatty (change of) liver, not elsewhere classified; Z20.822 Contact with and (suspected) exposure to COVID-19; K63.89 Other specified diseases of intestine; H04.123 Dry eye syndrome of bilateral lacrimal glands; E11.9 Type 2 diabetes mellitus without complications; E78.5 Hyperlipidemia, unspecified; R94.31 Abnormal electrocardiogram [ECG] [EKG]; E03.9 Hypothyroidism, unspecified; I10 Essential (primary) hypertension; R32 Unspecified urinary incontinence; D69.6 Thrombocytopenia, unspecified; K21.9 Gastro-esophageal reflux disease without esophagitis; M51.36 Other intervertebral disc degeneration, lumbar region; Z79.82 Long term (current) use of aspirin; Z79.899 Other long term (current) drug therapy; Z82.49 Family history of ischemic heart disease and other diseases of the circulatory system; Z83.3 Family history of diabetes mellitus
CPT/HCPCS: 36415; 70450; 70496; 70498; 70553; 71046; 74177; 80048; 80053; 81003; 82607; 82948; 83735; 84443; 84484; 85025; 85055; 87637; 92610; 93005; 97161; 97165; 99285; A9270; A9577; G0378; Q9967

== ENCOUNTER → 2023-08-05 08:42 | Outpatient (CLI) | payer MEDICARE, BC, SELFPAY ==
--- NOTE | ~2023-08-05 | US_ITS ---
US abdomen limited INDICATION: Cirrhosis of the liver PROCEDURE: Realtime right upper abdominal ultrasound. COMPARISON: No prior studies for comparison. FINDINGS: The pancreas is normal without focal mass or pancreatic ductal dilation. Liver echotexture is increased and heterogeneous with nodular liver surface, consistent with cirrhosis. Small amount o f ascites. There is normal directional flow in the portal vein. Gallbladder is surgically absent. Common bile duct measures 5 mm. No sonographic Jones's sign. IMPRESSION: 1: Cirrhosis of the liver. Small amount of ascites. Reviewed, dictated and finalized at location L.
== END ==
PROVIDERS: PCP Family Medicine; Visit Provider Internal Medicine Gastroenterology
DX: K75.81 Nonalcoholic steatohepatitis (NASH) (principal); R18.8 Other ascites
CPT/HCPCS: 76705

== ENCOUNTER 2023-08-19 09:01 | Outpatient (CLI) | payer MEDICARE, BC, SELFPAY ==
[2023-08-19 10:31] LABS: Anion Gap 8 mmol/L (8-16); Blood Urea Nitrogen 16 mg/dL (7-17); Calcium 9.2 mg/dL (8.4-10.2); Carbon Dioxide 27 mmol/L (22-30); Chloride 105 mmol/L (98-107); Estimated Glomerular Filt Rate > 60; Glucose 132 mg/dL (65-110); Magnesium 1.6 mg/dL (1.6-2.3); Sodium 140 mmol/L (137-145)
[2023-08-19 10:34] LABS: Hemoglobin A1C 5.9 % (<5.7)
[2023-08-19 10:36] LABS: Iron 106 ug/dL (37-170)
[2023-08-19 10:46] LABS: Percent Iron Saturation 29 % (20-50)
[2023-08-19 10:52] LABS: Vitamin D 25 Hydroxy 41.6 ng/mL
== END 2023-08-19 09:02 | disposition home or self-care (01) ==
PROVIDERS: PCP Family Medicine; Visit Provider Family Medicine
DX: E11.9 Type 2 diabetes mellitus without complications (principal); E03.9 Hypothyroidism, unspecified; I10 Essential (primary) hypertension; J32.9 Chronic sinusitis, unspecified; R19.4 Change in bowel habit; R32 Unspecified urinary incontinence; E55.9 Vitamin D deficiency, unspecified; D64.9 Anemia, unspecified
CPT/HCPCS: 36415; 80048; 82306; 82728; 83036; 83540; 83550; 83735

== ENCOUNTER → 2023-10-26 13:05 | Outpatient (CLI) | payer MEDICARE, BC, SELFPAY ==
--- NOTE | ~2023-10-26 | US_ITS ---
Limited Abdominal Sonogram: Real-time sonographic imaging of the right upper quadrant was performed. Clinical History: Fatty liver Findings: The liver appears mildly echogenic, with no evidence of mass lesion or bile duct dilatatio n. Main portal vein demonstrates normal direction of flow. The gallbladder is absent, compatible prio r cholecystectomy. The common bile duct measures 6 mm. The visualized pancreas, aorta, and IVC are u nremarkable. Right kidney measures 10.9 cm in length, without evidence of hydronephrosis. Trace ascit es noted. Impression: Heterogeneous/echogenic liver. Correlate for fatty infiltration versus other chronic liver disease/ci rrhotic change. Trace perihepatic ascites. Reviewed, dictated and finalized at location M. MAT CAR ATTENDANT Impression: Heterogeneous/echogenic liver. Correlate for fatty infiltration versus other ch ronic liver disease/cirrhotic change. Trace perihepatic ascites.
== END ==
PROVIDERS: PCP Internal Medicine Gastroenterology; Visit Provider Internal Medicine Gastroenterology
DX: K75.81 Nonalcoholic steatohepatitis (NASH) (principal); K74.60 Unspecified cirrhosis of liver
CPT/HCPCS: 76705

== ENCOUNTER 2024-01-18 13:21 | Outpatient (CLI) | payer MEDICARE, BC, SELFPAY ==
--- NOTE | ~2024-01-18 | MM_ITS ---
EXAMINATION: MM screening monty BI w renata HISTORY: Screening mammogram TECHNIQUE: Craniocaudal and mediolateral oblique 3-D tomosynthesis images were obtained and synthetic 2-D images were generated. CAD analysis was submitted and interpreted. COMPARISON: 09/18/2019 bilateral screening mammogram BREAST PARENCHYMAL COMPOSITION: There are scattered areas of fibroglandular density. FINDINGS: Asymmetric opacities are noted in the central lower right breast. Diagnostic right mammogr am is recommended, with ultrasound if required. No suspicious mass or architectural distortion, malignant calcification, skin thickening or retractio n is noted otherwise. IMPRESSION: 1. Right mammographic asymmetries 2. Diagnostic right mammogram is recommended, with ultrasound if required BI-RADS Category 0: Incomplete: Needs additional imaging evaluation. Reviewed, dictated and finalized at location A.
== END 2024-01-18 13:22 ==
LOC: MICIMG 13:22
PROVIDERS: PCP Family Medicine; Visit Provider Family Medicine
DX: Z12.31 Encounter for screening mammogram for malignant neoplasm of breast (principal); R92.8 Other abnormal and inconclusive findings on diagnostic imaging of breast
CPT/HCPCS: 77063; 77067

== ENCOUNTER 2024-02-17 08:48 | Outpatient (CLI) | payer MEDICARE, BC, SELFPAY ==
--- NOTE | ~2024-02-17 | MMUS_ITS ---
EXAMINATION: MM diagnostic monty RT w renata, US breast RT limited HISTORY: Possible developing mammographic densities in the lower central right breast suggested on Ap 2023 screening mammogram TECHNIQUE: Additional 3-D tomosynthesis images of the right breast were performed and synthetic 2-D i mages were generated. CAD analysis was submitted and interpreted. High resolution lower inner and low er outer quadrant right breast ultrasound was performed. COMPARISON: January 18, 2024 bilateral screening mammogram FINDINGS: MAMMOGRAPHIC FINDINGS: An irregular 4 mm noncircumcised opacity is noted at mid depth in the lower central right breast. ULTRASOUND: At 6:00 3 cm from the nipple there is an irregular antiparallel approximately 3.6 x 3.7 x 3.9 mm hypo echoic shadowing lesion. This is suspicious due to irregular margins on both mammography and ultrasou nd and also because of the antiparallel orientation. Ultrasound-guided biopsy is recommended. IMPRESSION: 1. Suspicious irregular approximately 4 mm mass at 6:00 3 cm from nipple 2. Ultrasound guided biopsy of right breast 6:00 lesion is recommended BI-RADS category 4, suspicious findings. Dr. Lin telephoned the report and ultrasound guided biopsy recommendation of the right breast 6:00 l esion on 02/17/[address] Lin's M.AYsabel's voicemail. Reviewed, dictated and finalized at location A. IMPRESSION: 1. Suspicious irregular approximately 4 mm mass at 6:00 3 cm from nipple 2. Ultrasound guided biopsy of right breast 6:00 lesion is recommended BI-RADS category 4, suspicious findings. Dr. Lin telephoned the report and ultrasound guided biopsy recommendation of t he right breast 6:00 lesion on 02/17/[address] Lin's M.AYsabel's voic email. IMPRESSION: 1. Suspicious irregular approximately 4 mm mass at 6:00 3 cm from nipple 2. Ultrasound guided biopsy of right breast 6:00 lesion is recommended BI-RADS category 4, suspicious findings. Dr. Lin telephoned the report and ultrasound guided biopsy recommendation of t he right breast 6:00 lesion on 02/17/[address] Lin's Khushi's voic email.
== END 2024-02-17 08:49 ==
LOC: MICIMG 08:49
PROVIDERS: PCP Family Medicine; Visit Provider Family Medicine
DX: Z12.31 Encounter for screening mammogram for malignant neoplasm of breast (principal); N64.89 Other specified disorders of breast; R92.8 Other abnormal and inconclusive findings on diagnostic imaging of breast
CPT/HCPCS: 76642; 77061; 77065; G0279

== ENCOUNTER 2024-02-17 10:36 | Outpatient (CLI) | payer MEDICARE, BC, SELFPAY ==
[2024-02-17 11:38] LABS: Hemoglobin 11.4 g/dL (12.0-15.0); Immature Platelet Fraction Pct 2.2 % (0.9-11.2); Mean Corpuscular HGB Conc 32.6 g/dl (32-36); Mean Corpuscular Hemoglobin 31.2 pg (26-34); Mean Corpuscular Volume 95.9 fl (80-100); Mean Platelet Volume 10.1 fl (7.4-10.4); Platelet Count Result 77 k/mm3 (150-375); Red Blood Count 3.65 M/mm3 (4.2-5.4); Red Cell Distribution Width 14.7 % (11.5-14.5)
[2024-02-17 11:53] LABS: Alanine Aminotransferase 26 U/L (6-35); Albumin Level 3.7 g/dL (3.5-5.1); Alkaline Phosphatase 86 U/L (38-126); Anion Gap 6 mmol/L (4-12); Aspartate Amino Transferase 50 U/L (14-36); Bilirubin,Total 2.3 mg/dL (0.2-1.3); Blood Urea Nitrogen 14 mg/dL (7-17); Calcium 9.1 mg/dL (8.4-10.2); Carbon Dioxide 26 mmol/L (22-30); Chloride 108 mmol/L (98-107); Cholesterol 153 mg/dL (0-200); Estimated Glomerular Filt Rate > 60; Glucose 131 mg/dL (65-110); HDL Direct 47 mg/dL; Potassium 3.7 mmol/L (3.4-5.0); Sodium 140 mmol/L (137-145); Triglycerides 103 mg/dL (<150)
[2024-02-17 12:04] LABS: LDL Cholesterol Direct 89 mg/dL
[2024-02-17 12:08] LABS: Iron 106 ug/dL (37-170)
[2024-02-17 12:19] LABS: Percent Iron Saturation 28 % (20-50)
[2024-02-17 12:27] LABS: Free T4 Free Thyroxine 1.79 ng/mL (0.78-2.19)
[2024-02-18 09:01] LABS: Hemoglobin A1C 5.8 % (<5.7)
== END 2024-02-17 10:37 | disposition home or self-care (01) ==
PROVIDERS: PCP Family Medicine; Visit Provider Family Medicine
DX: D64.9 Anemia, unspecified (principal); I10 Essential (primary) hypertension; D69.6 Thrombocytopenia, unspecified; E03.9 Hypothyroidism, unspecified; E07.9 Disorder of thyroid, unspecified; E11.9 Type 2 diabetes mellitus without complications; E87.6 Hypokalemia; K58.9 Irritable bowel syndrome, unspecified; K74.60 Unspecified cirrhosis of liver
CPT/HCPCS: 36415; 80053; 80061; 82728; 83036; 83540; 83550; 84439; 84443; 85027; 85055

== ENCOUNTER 2024-03-13 09:45 | Outpatient (CLI) | payer MEDICARE, BC, SELFPAY ==
--- NOTE | ~2024-03-13 | XR_ITS ---
Supine and upright views of the abdomen Clinical history: Abdominal hernia Findings: Bowel gas pattern is nonspecific. No evidence for obstruction or free air. No abnormal mass lesion or calcification is seen. Osseous structures are intact. Impression: No significant abnormality is seen. Reviewed, dictated and finalized at [facility]. Impression: No significant abnormality is seen.
--- NOTE | ~2024-03-13 | XR_ITS ---
Left Knee Technique: AP, lateral, and sunrise views were obtained. Clinical History: Pain Findings: No fracture or dislocation is seen. Osseous alignment is anatomic. Minimal tricompartmental spurring noted. Soft tissues are unremarkable. No joint effusion is seen. Impression: Minimal tricompartmental degenerative spurring. Reviewed, dictated and finalized at [facility]. Impression: Minimal tricompartmental degenerative spurring.
--- NOTE | ~2024-03-13 | XR_ITS ---
Right Knee Technique: AP, lateral, and sunrise views were obtained. Clinical History: Pain Findings: No fracture or dislocation is seen. There is moderate osteoarthritis of the lateral compart ment, with osteophyte formation and possible minimal joint space narrowing. There is minimal degenera tive change of the medial and patellofemoral compartment.. Soft tissues are unremarkable. No joint ef fusion is seen. Impression: Degenerative change, as above, worst in the lateral compartment. Reviewed, dictated and finalized at location M. Impression: Degenerative change, as above, worst in the lateral compartment.
--- NOTE | ~2024-03-13 | US_ITS ---
EXAMINATION: US abdomen limited DATE: 03/13/2024 10:13 INDICATION: Unspecified abdominal hernia without obstruction. TECHNIQUE: Multiple grayscale and Doppler ultrasound images of the abdomen were obtained. COMPARISON: CT abdomen and pelvis 07/19/2023 FINDINGS: There is no ventral hernia. IMPRESSION: 1. No ventral hernia. Reviewed, dictated and finalized at location A. IMPRESSION: 1. No ventral hernia.
== END 2024-03-13 09:46 ==
PROVIDERS: PCP Family Medicine; Visit Provider Family Medicine
DX: K46.9 Unspecified abdominal hernia without obstruction or gangrene (principal); R10.9 Unspecified abdominal pain; M25.569 Pain in unspecified knee
CPT/HCPCS: 73562; 74021; 76705

== ENCOUNTER 2024-03-31 13:44 | Outpatient (CLI) | payer MEDICARE, BC, SELFPAY ==
[2024-03-31 14:24] LABS: Appearance Urine Clear (Clear); Bilirubin Urine Negative (Negative); Blood Urine Negative (Negative); Color Urine Yellow (Yellow); Glucose Urine UA Negative (Negative); Ketones Urine Negative (Negative); Leukocyte Esterase Ur Negative LEU/UL (Negative); Nitrate Urine Negative (Negative); Protein Urine Negative (Negative); Specific Grav Ur 1.006 (1.001-1.035); Urobilinogen Urine 0.2 mg/dL (<2.0)
[2024-03-31 14:37] LABS: Add Urine Microscopic? NO
== END 2024-03-31 13:45 | disposition home or self-care (01) ==
PROVIDERS: PCP Family Medicine; Visit Provider Family Medicine
DX: R39.89 Other symptoms and signs involving the genitourinary system (principal); R32 Unspecified urinary incontinence
CPT/HCPCS: 81003; 87086

== ENCOUNTER 2024-04-18 14:17 | Outpatient (CLI) | payer MEDICARE, BC, SELFPAY ==
[2024-04-18 14:50] LABS: Appearance Urine Cloudy (Clear); Bacteria Urine None Seen /hpf; Bilirubin Urine Negative (Negative); Blood Urine Non-Hemolyzed Trace (Negative); Color Urine Dark Yellow (Yellow); Glucose Urine UA Negative (Negative); Ketones Urine Negative (Negative); Leukocyte Esterase Ur 3+ LEU/UL (Negative); Nitrate Urine Negative (Negative); Non Pathogenic Casts 0-2; Protein Urine 1+ mg/dL (Negative); Specific Grav Ur 1.023 (1.001-1.035); Squamous Epithelial Cell Urine None Seen /hpf (Few); WBC Urine >100 /hpf (0-3)
[2024-04-18 14:55] LABS: Add Urine Microscopic? YES
== END 2024-04-18 14:18 | disposition home or self-care (01) ==
LOC: ANHLAB 14:20
PROVIDERS: PCP Family Medicine; Visit Provider Nurse Practitioner Family
DX: R39.9 Unspecified symptoms and signs involving the genitourinary system (principal); R32 Unspecified urinary incontinence
CPT/HCPCS: 81001; 87086; 87088

== ENCOUNTER 2024-05-11 07:41 | Outpatient (CLI) | payer MEDICARE, BC, SELFPAY ==
--- NOTE | ~2024-05-11 | MMUS_ITS ---
MM post biopsy diagnostic RT, US breast biopsy RT w image EXAMINATION: US GUIDED NEEDLE BIOPSY WITH VACUUM ASSISTANCE DATE: 05/11/2024 09:19 CDT INDICATION: Right breast mass seen on prior examination. Ultrasound-guided core biopsy is requested to evaluate for malignancy. BREAST PARENCHYMAL COMPOSITION: Not dense: There are scattered areas of fibroglandular density. TECHNIQUE AND FINDINGS: The risks and potential benefits of the procedure were discussed with the patient, and written inform ed consent was obtained. After sterile preparation of the right breast, 1% lidocaine was utilized fo r local anesthesia. 1% lidocaine with epinephrine was used for deep anesthesia. A 10G vacuum-assisted biopsy gun needle was advanced through to the outer edge of the region of inter est from a inferior medial approach utilizing sonographic guidance. A total of 4 tissue core samples were obtained through the lesion. An Inrad tissue marker clip was then placed at the biopsy site. H emostasis was achieved. The patient tolerated procedure well and there was no evidence of immediate complication. The patien t was given verbal instructions partly is from the department. Right breast mammograms to document t issue marker clip placement. The tissue samples were submitted to surgical pathology for histologic a nalysis. IMPRESSION: 1. Successful ultrasound-guided vacuum-assisted biopsy of right breast mass with post procedure mamm ogram for marker placement. Please refer to pathology report for histologic analysis. Reviewed, dictated and finalized at location B. IMPRESSION: 1. Successful ultrasound-guided vacuum-assisted biopsy of right breast mass wi th post procedure mammogram for marker placement. Please refer to pathology rep ort for histologic analysis.
== END 2024-05-11 07:42 | disposition home or self-care (01) ==
PROVIDERS: PCP Family Medicine; Visit Provider Surgery
DX: R92.8 Other abnormal and inconclusive findings on diagnostic imaging of breast (principal); D05.11 Intraductal carcinoma in situ of right breast
CPT/HCPCS: 19083; 77065; 88305; 88360

== ENCOUNTER 2024-05-31 14:14 | Outpatient (CLI) | payer MEDICARE, BC, SELFPAY ==
[2024-05-31 14:45] LABS: Hematocrit 35.9 % (37.0-47.0); Hemoglobin 12.2 g/dL (12.0-15.0); Immature Platelet Fraction Pct 3.3 % (0.9-11.2); Mean Corpuscular Hemoglobin 32.7 pg (26-34); Mean Corpuscular Volume 96.2 fl (80-100); Mean Platelet Volume 10.6 fl (7.4-10.4); Platelet Count Result 74 k/mm3 (150-375); Red Blood Count 3.73 M/mm3 (4.2-5.4); Red Cell Distribution Width 14.2 % (11.5-14.5); White Blood Count 4.4 K/mm3 (4.5-10.0)
[2024-05-31 14:55] LABS: Alanine Aminotransferase 30 U/L (6-35); Albumin Level 4.1 g/dL (3.5-5.1); Alkaline Phosphatase 99 U/L (38-126); Anion Gap 10 mmol/L (4-12); Aspartate Amino Transferase 51 U/L (14-36); Bilirubin,Total 3.2 mg/dL (0.2-1.3); Blood Urea Nitrogen 16 mg/dL (7-17); Calcium 9.4 mg/dL (8.4-10.2); Carbon Dioxide 27 mmol/L (22-30); Chloride 101 mmol/L (98-107); Estimated Glomerular Filt Rate > 60; Glucose 115 mg/dL (65-110); Potassium 3.8 mmol/L (3.4-5.0); Sodium 138 mmol/L (137-145)
[2024-05-31 15:00] LABS: INR 1.2; Prothrombin Time 15.2 Seconds (11.1-14.7)
[2024-05-31 15:10] LABS: Platelet Estimate Slightly Decreased (Adequate); Schistocytes None Seen
== END 2024-05-31 14:15 | disposition home or self-care (01) ==
LOC: ANHLAB 14:20
PROVIDERS: PCP Family Medicine; Visit Provider Surgery
DX: C50.911 Malignant neoplasm of unspecified site of right female breast (principal); K74.60 Unspecified cirrhosis of liver
CPT/HCPCS: 36415; 80053; 85025; 85055; 85610

== ENCOUNTER 2024-06-06 09:12 | Outpatient (CLI) | payer MEDICARE, BC, SELFPAY ==
--- NOTE | ~2024-06-06 | US_ITS ---
Limited Abdominal Sonogram: Real-time sonographic imaging of the right upper quadrant was performed. Clinical History: Cirrhosis Findings: The liver appears mildly heterogeneous, somewhat nodular contour of liver capsule. No foca l mass or biliary dilatation seen. Main portal vein demonstrates normal direction of flow. The gallbl adder is absent, compatible prior cholecystectomy. The common bile duct measures 3 mm. The visualize d pancreas, aorta, and IVC are unremarkable. Impression: Findings compatible cirrhotic change of the liver. Status post cholecystectomy. Reviewed, dictated and finalized at location M. Impression: Findings compatible cirrhotic change of the liver. Status post cholecystectomy.
== END 2024-06-06 09:13 ==
LOC: MICIMG 09:14
PROVIDERS: PCP Family Medicine; Visit Provider Internal Medicine Gastroenterology
DX: K74.60 Unspecified cirrhosis of liver (principal); Z90.49 Acquired absence of other specified parts of digestive tract
CPT/HCPCS: 76705

== ENCOUNTER 2024-06-07 07:31 | Outpatient (CLI) | payer MEDICARE, BC, SELFPAY ==
--- NOTE | ~2024-06-07 | MMUS_ITS ---
US_MAGSEEDRT_US, MM post biopsy invasive RT EXAMINATION: US_MAGSEEDRT_US, MM post biopsy invasive RT INDICATION: Right breast cancer TECHNIQUE: The procedure for a ultrasound -guided Magseed localization was discussed with the patient . Risks discussed included bleeding and infection. The patient verbalized understanding and agreed to proceed. The time out was performed to verify the patient's name, date of , and site of procedure. The s kin overlying the right breast was prepared in usual fashion. Utilizing ultrasound guidance, the need le was advanced into the right breast. Confirmation of Magseed position was achieved with ultrasound and subsequent mediolateral and craniocaudal mammogram. The patient tolerated procedure without immed iate complication. BREAST PARENCHYMAL COMPOSITION: Not dense: There are scattered areas of fibroglandular density. FINDINGS: Ultrasound and mammographic images demonstrate deployment of the Magseed device of the biop sy-proven right breast cancer. IMPRESSION: 1. Successful ultrasound-guided right breast Magseed localization. Post procedure mammogram for marke r placement. Reviewed, dictated and finalized at location B. IMPRESSION: 1. Successful ultrasound-guided right breast Magseed localization. Post procedu re mammogram for marker placement.
== END 2024-06-07 07:32 | disposition home or self-care (01) ==
PROVIDERS: PCP Family Medicine; Visit Provider Surgery
DX: C50.911 Malignant neoplasm of unspecified site of right female breast (principal)
CPT/HCPCS: 19285; A4648

== ENCOUNTER 2024-06-28 01:15 | Day surgery (SDC) | payer MEDICARE, BC, SELFPAY ==
--- NOTE | 2024-06-16 15:05 | PC.NURSE ---
Report to the Outpatient Waiting Room, entrance under the green pavilion located off [facility], at time _6 AM on date _06/28/24 . Planned Procedure Time: __8 AM .? Time changes happen often and if your time is changed the preop area will call you the afternoon before. - You and your visitor will be asked to self-screen and do not enter if you have any COVID symptoms. Please call surgeon if you need to reschedule. - A mask is optional within the hospital at this time. Patients may have clear liquids (water, carbonated beverages, clear teas, apple juice) until 3 hours prior to surgery(5 AM) with a maximum of 20 ounces. - No food from midnight until time of surgery and no smoking - Infants may have breast milk until 4 hours before surgery, formula 6 hours prior to surgery. - Children will be allowed to drink immediately following surgery.? If applicable, please bring a bottle or sippy cup to assist with drinking. Juice, water, soda, and popsicles are readily available.? For infants on formula, please bring formula the day of surgery.? Pacifiers are allowed. Take only the following medications with a SIP of water on the morning of surgery: _LEVOTHYROXINE,NADOLOL,EYE DROPS DO NOT STOP ANY OF YOUR OTHER PRESCRIPTION MEDICATIONS PRIOR TO SURGERY EXCEPT THE FOLLOWING Medications to discontinue per physician _HOLD ALL VITAMINS AND SUPPLEMENTS 3 DAYS PRE OP .LAST DOSE 06/24/24. Please no make-up, nail burkinan, hairspray, perfume, deodorant, or body powder the day of surgery.? No jewelry (including any body piercings) or valuables the day of surgery, leave them at home.? Please take a shower or bath the night before, or the morning of, surgery with an antibacterial soap.? Wear comfortable, loose fitting clothing.? Children are encouraged to wear pajamas. - Jewelry must be removed prior to entering the operating room.? Rings and piercings that are not removed may be cut off. - The hospital will not accept responsibility for valuables.? - Please leave all valuables, including medications, at home the day of surgery. If you are going home after surgery, a licensed form setter/driver must drive you home.? - NO public transportation without another adult if you receive anesthesia. - We recommend that an adult stay with you for 24 hours following discharge. - We also recommend that you do not drive, make important decision, drink alcoholic beverages, or take any drugs that were not prescribed by your health care provider for at least 24 hours after your discharge time. For Pediatric surgeries, we recommend two adults accompany the child home. Follow any additional instructions given to you from your surgeon. Telephone instructions given to __PATIENT and asked if any additional questions and then verbalized understanding. Patient advised to call surgeon office or pre surgery nurse liaison [phone] if any additional questions.
[2024-06-16 15:52] VITALS: BMI 26.6
[2024-06-28] VITALS (9 sets, daily range): BP systolic 131–171; BP diastolic 59–77; PULSE 66–76; RESP 12–18; TEMP 36.2–36.3; O2SAT 97–100; BMI 26.4
--- NOTE | ~2024-06-28 | MM_ITS ---
EXAMINATION: MM_FAXITRON_MG INDICATION: Right breast lumpectomy TECHNIQUE: 2 specimen radiographs are submitted for review. COMPARISON: None available FINDINGS: The biopsy marker and magseed are contained within the specimen radiographs. IMPRESSION: 1. Biopsy marker and magseed within the specimen radiographs Reviewed, dictated and finalized at location .
[2024-06-28 06:28] LABS: Glucose Point of Care 120 mg/dl (65-105)
[2024-06-28] MEDS: ACETAMINOPHEN 500 MG TABLET 1000 MG PO (07:00)
--- NOTE | 2024-06-28 07:19 | WPDHPUPDATE1 ---
History and Physical Update Update Date/Time: 06/28/24 07:19 - Right breast lumpectomy with Mag seed localization and possible adjacent tissue transfer History and Physical has been reviewed, including an updated exam of the patient. There are NO changes in the patient's condition. Risks, benefits, and alternatives have been discussed and questions answered. Patient agrees to proceed with procedure.
--- NOTE | 2024-06-28 07:45 | WPDANESEPPF ---
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 Patient Data Age: 83 Gender: F Height: 1.6 m Weight: 67.6 kg Last Vital Signs Temp 36.2 C L 06/28/24 07:16 Pulse 76 06/28/24 07:16 Resp 18 06/28/24 07:16 BP 171/66 H 06/28/24 07:16 Pulse Ox 100 06/28/24 07:16 O2 Del Method Room Air 06/28/24 07:16 Allergies Allergy/AdvReac Type Severity Reaction Status Date / Time codeine Allergy Intermediate ABDOMINAL Verified 06/21/24 14:08 CRAMPING/DISTRESS acetaminophen [From [place]] AdvReac Severe Vomiting Verified 06/28/24 07:27 hydrocodone [From [place]] AdvReac Severe Vomiting Verified 06/28/24 07:27 adhesive tape AdvReac Unknown RASH, Verified 06/21/24 14:08 REDNESS Home Medications Medication Instructions Recorded Confirmed Type cyclosporine 0.05 % eye drops in a 0.05 % ophthalmic (eye) BID 09/04/19 06/16/24 History dropperette (Restasis) nadolol 40 mg tablet (Corgard) 40 mg PO DAILY 10/21/21 06/16/24 History ascorbic acid (vitamin C) 500 mg 500 mg PO DAILY 10/15/22 06/16/24 History capsule gkpgtpkafmot-Pe-jazn-minerals 1 tablet PO DAILY #30 tabs 01/13/23 06/16/24 Rx losartan 25 mg tablet 25 mg PO .at night #90 tabs 07/15/23 06/16/24 Rx levothyroxine 100 mcg tablet 100 mcg PO DAILY #90 tabs 08/09/23 06/16/24 Rx cyclobenzaprine 10 mg tablet 10 mg PO TID PRN muscle spasm #60 02/24/24 06/16/24 Rx tabs aspirin 81 mg chewable tablet 81 mg PO DAILY 03/07/24 06/16/24 History mupirocin 2 % topical ointment 2 applic topical DAILY 03/20/24 06/16/24 History losartan 50 mg tablet 50 mg PO DAILY #90 tabs 03/30/24 06/16/24 Rx ferrous sulfate 325 mg (65 mg 325 mg PO .COMPLEX #90 tabs 04/05/24 06/16/24 Rx iron) tablet (Iron (ferrous sulfate)) metformin 500 mg tablet,extended 500 mg PO DAILY #360 tabs 06/02/24 06/16/24 Rx release 24 hr calcium 250 mg tablet 600 mg PO DAILY 06/16/24 06/16/24 History omeprazole 20 mg capsule,delayed See Rx Instructions .Route 06/26/24 Rx release .COMPLEX #30 caps Laboratory Tests 06/28/24 06/28/24 06:23 07:32 Plt Count Pending MPV Pending POC Capillary Glucose 120 H mg/dl (65-105) Blood Type Pending Patient hx anesthesia problems: none Family hx anesthesia problems: none Results Review: All pre-operative results and documents have been reviewed as part of the pre-operative evaluation. [facility] Past Medical History Medical History Chronic sinusitis Cirrhosis Cirrhosis Colon polyp DM type 2 (diabetes mellitus, type 2) Dry eyes, bilateral Dyslipidemia Esophageal varices GERD (gastroesophageal reflux disease) Hypertension Hypothyroidism Lumbar degenerative disc disease Osteoarthritis Skin cancer of face Thrombocytopenia Urinary incontinence Varicose vein of leg Surgical History Surgical History H/O arthroscopic knee surgery H/O sinus surgery History of cataract surgery Hx of appendectomy S/P cholecystectomy Family History Family History Father Hypertension Mother Cerebrovascular accident Valvular heart disease Diabetes mellitus Hypertension Heart disease Daughter Breast cancer Diabetes mellitus Son Hypertension Sibling Diabetes mellitus Alcoholism Daughter Breast cancer Diabetes mellitus Hypertension Grandparent Alcoholism Diabetes mellitus Social History Social History Smoking status: Never smoker Alcohol intake: never Substance use: never Substance u
[2024-06-28 07:46] LABS: Immature Platelet Fraction Pct 2.7 % (0.9-11.2); Platelet Count Result 70 k/mm3 (150-375)
[2024-06-28] MEDS: LACTATED RINGERS 1,000 ML 30 ML IV CONT (08:00)
[2024-06-28] MEDS: ceFAZolin 2 GM/D5W 50 ML 2 GM/50 ML BAG IVPB (08:14)
[2024-06-28] MEDS: BUPIVACAINE/EPINEPHRINE 0.5% 50 ML VIAL 20 ML INFILTRATE (08:36)
--- NOTE | 2024-06-28 09:04 | SUR.OPER ---
Right Breast Lumpectomy Excision time 08 Faxitron 0858 Mammography was called at 0901 Mammography returned call with the ok to preceed 902 PCT picked up specimen to transport to path 09 Marina in Pathology received specimen [id number]
--- NOTE | 2024-06-28 09:28 | W.PM.PROC2 ---
Procedure Note - Detailed Date of Procedure 06/28/24 Pre-op Diagnosis Invasive Ductal Carcinoma Rt Breast Post-op Diagnosis Same Procedure Performed 1. Right breast lumpectomy with magseed localization Surgeon Sydnee Valadez MD Global Compensation Manager Dana Cronin PA-C Anesthesia General Description of Procedure Patient was identified in the pre-operative area and brought to the OR suite. She underwent tumor localization previously by IR with magseed placement. She was laid supine in the operating table and sequential compression devices were applied. General anesthesia was induced without difficulties. The right chest was prepped and draped in a sterile fashion. The sentimag probe was used to identify the area where the magseed was placed and inframammary fold incision was made. Dissection was carried down through the subcutaneous tissue into the breast tissue. The tumor was identified with palpation and using sentimag probe, and a rim of normal breast tissue was excised along with the tumor as our lumpectomy specimen. Once the specimen was completely excised, it was oriented using surgical paint according to cyanide case hardener instructions. The specimen was placed in the faxitron and 2 radiographs were obtained and sent to Radiology for radiographic confirmation of Tumor, biopsy marker and magseed within the specimen. Once the radiographic confirmation was received, the wound was irrigated with saline and hemostasis was assured. In order to decrease the lumpectomy cavity, decision was made to imbricate some of the inferior skin of the breast to decrease the cavity size. A vertical triangular area in the inferior breast was de-epithelialized and closed with 3-0 Vicryl and 4-0 Monocryl to again decrease the lumpectomy cavity and lower the risk of seroma formation. The infra mammary fold incision was closed with interrupted 3-0 vicryl for deep dermal layer followed by 4-0 monocryl for the skin. Dermabond was applied followed by a surgical bra. Patient was awoken from anesthesia and taken to the recovery area in stable condition. All needles, instruments and sponge counts were correct as reported by the operating room staff. Patient tolerated the procedure well with no immediate complications. Dana Cronin PA-C was required for positioning and retraction throughout the entire case. Estimated Blood Loss 5 Pathology Yes Complications No immediate complications Condition Stable Disposition PACU [facility] Billing Surgery - Charge Forward: Surgery Billing (CPT 00358)
[2024-06-28 09:56] LABS: Glucose Point of Care 131 mg/dl (65-105)
== END 2024-06-28 11:42 | disposition home or self-care (01) ==
PROVIDERS: Anesthesiology; PCP Family Medicine; Visit Provider Surgery
PROC: (CPT 19301; principal; 2024-06-28 08:00)
DX: C50.911 Malignant neoplasm of unspecified site of right female breast (principal); Z17.0 Estrogen receptor positive status [ER+]; I10 Essential (primary) hypertension; E03.9 Hypothyroidism, unspecified; E11.9 Type 2 diabetes mellitus without complications; E78.5 Hyperlipidemia, unspecified; K21.9 Gastro-esophageal reflux disease without esophagitis; D69.6 Thrombocytopenia, unspecified; R32 Unspecified urinary incontinence; J32.9 Chronic sinusitis, unspecified; K74.60 Unspecified cirrhosis of liver; I85.00 Esophageal varices without bleeding; M51.36 Other intervertebral disc degeneration, lumbar region; Z79.82 Long term (current) use of aspirin; Z79.84 Long term (current) use of oral hypoglycemic drugs; Z98.890 Other specified postprocedural states; Z90.49 Acquired absence of other specified parts of digestive tract; Z86.010 Personal history of colon polyps; Z85.828 Personal history of other malignant neoplasm of skin; Z80.3 Family history of malignant neoplasm of breast; Z82.49 Family history of ischemic heart disease and other diseases of the circulatory system
CPT/HCPCS: 19301; 36415; 76098; 82948; 85049; 85055; 86900; 86901; 88305; 88307; A9270; J0690; J1100; J1596; J2405; J2704; J3010; J7120; Q9968

== ENCOUNTER 2024-08-02 12:50 | Outpatient (CLI) | payer MEDICARE, BC, SELFPAY ==
--- NOTE | ~2024-08-02 | DEXA_ITS ---
Bone Density Report Name: JESS ESCAMILLA Age: 83 Sex: Female Ethnicity: White Date of : 1940 Indication: postmenopausal; screening for osteoporosis; cancer; Referring Provider: FARSHAD PINEDA Study: Bone densitometry was performed. Exam Date: August 02, 2024 Accession number: [id number] Bone Density: Region BMD T-score Z-score Classification AP Spine(L1-L4) 1.065 0.2 2.9 Normal Femoral Neck (Left) 0.696 -1.4 1.0 Osteopenia Total Hip (Left) 0.955 0.1 2.3 Normal Femoral Neck (Right) 0.707 -1.3 1.1 Osteopenia Total Hip (Right) 0.943 0.0 2.2 Normal Total Hip Mean 0.949 0.1 2.3 Normal World Health Organization criteria for BMD impression classify patients as: Normal (T-score at or above -1.0), Osteopenia (T-score between -1.0 and -2.5), or Osteoporosis (T-score at or below -2.5). 10-year Fracture Risk(1): Major Osteoporotic Fracture 13% Hip Fracture 3.3% Reported Risk Factors: [place] (), Neck BMD=0.696, BMI=27.8 (1) FRAX(R) Version 3.08. Fracture probability calculated for an untreated patient. Fracture probability may be lower if the patient has received treatment. Clinical Information Provided by Patient: Has used the following medications: Vitamin D, Calcium Has the following medical conditions: Cancer, breast ca Patient maximum height was 63.0 No regular weight bearing exercise Onset of menses at age 14 Number of children 3 Impression: The patient has low bone mass, based on the Left Femoral Neck T-score. The patient has an estimated ten-year risk of hip fracture of 3.3% and an estimated ten-year risk of major fracture of 13%, based on the WHO FRAX algorithm. Discussion: BONE DENSITY IS LOW AT ONE OR MORE SKELETAL SITES. THE PATIENT'S BMD AND CLINICAL RISK FACTORS CONTRIBUTE TO THIS PATIENT'S INCREASED RISK OF FRACTURE. This patient's lowest T-score is low at one or more skeletal sites. It meets the World Health Organization's (WHO) criteria for ?low bone mass? (T-score between -1.0 and -2.5). The patient's 10-year risk of hip fracture as calculated by FRAX exceeds the threshold where pharmacological therapy is recommended by the National Osteoporosis Foundation (NOF). However, all treatment decisions require clinical judgment and consideration of individual patient factors, including patient preferences, comorbidities, previous drug use, risk factors not captured in the FRAX model (e.g., frailty, falls, vitamin D deficiency, increased bone turnover, interval significant decline in bone density) and possible under or overestimation of fracture risk by FRAX. The patient should follow a healthful lifestyle (good nutrition with adequate calcium and vitamin D, and appropriate weight-bearing exercise). Follow-Up: Consider a repeat BMD and Vertebral Fracture Assessment (VFA) exam in 2 years or sooner if medically necessary, to reassess this patient's status. Reported by: JAMAR on 08/02/2024 1:20:00 PM. Reviewed, dictated and finalized at location AYsabel CRISOSTOMO
== END 2024-08-02 12:51 | disposition home or self-care (01) ==
LOC: ANHIMG 12:51
PROVIDERS: PCP Family Medicine; Visit Provider Family Medicine
DX: M85.89 Other specified disorders of bone density and structure, multiple sites (principal); Z78.0 Asymptomatic menopausal state
CPT/HCPCS: 77080

== ENCOUNTER 2024-08-05 08:22 | Outpatient (CLI) | payer MEDICARE, BC, SELFPAY ==
--- NOTE | ~2024-08-05 | US_ITS ---
EXAM: ABDOMEN ULTRASOUND HISTORY: Liver cirrhosis secondary to MASH COMPARISON: 06/06/2024 FINDINGS: LIVER: The liver is heterogeneous in echogenicity nodular in contour consistent with patient's history. The portal vein is patent demonstrating hepatopedal flow. Although the portal vein is patent, there is interval development of phasicity of the waveform when c ompared with May 2024 examination consistent with worsening portal hypertension. Perihepatic fluid is present, increased from 06/06/2024 examination. GALLBLADDER: The gallbladder is surgically absent. BILE DUCTS: Common bile duct measures 6.2mm. PANCREAS: Limited evaluation of the pancreas secondary to overlying bowel gas VASCULATURE : The abdominal aorta is nonaneurysmal. The IVC is patent. IMPRESSION: Findings consistent with worsening portal hypertension, as detailed above. Reviewed, dictated and finalized at location A.
== END 2024-08-05 08:23 | disposition home or self-care (01) ==
LOC: MICIMG 08:23
PROVIDERS: PCP Family Medicine; Visit Provider Internal Medicine Gastroenterology
DX: K75.81 Nonalcoholic steatohepatitis (NASH) (principal); K74.60 Unspecified cirrhosis of liver; K76.6 Portal hypertension
CPT/HCPCS: 76705

== ENCOUNTER 2024-09-01 10:42 | Outpatient (CLI) | payer MEDICARE, BC, SELFPAY ==
[2024-09-01 11:40] LABS: Anion Gap 5 mmol/L (4-12); Blood Urea Nitrogen 26 mg/dL (7-17); Calcium 8.9 mg/dL (8.4-10.2); Carbon Dioxide 29 mmol/L (22-30); Chloride 103 mmol/L (98-107); Estimated Glomerular Filt Rate > 60; Glucose 180 mg/dL (65-110); Potassium 4.1 mmol/L (3.4-5.0); Sodium 137 mmol/L (137-145)
[2024-09-01 16:10] LABS: Hemoglobin A1C 6.3 % (<5.7)
== END 2024-09-01 10:43 | disposition home or self-care (01) ==
LOC: ANHLAB 10:47
PROVIDERS: Internal Medicine Gastroenterology; PCP Family Medicine; Visit Provider Family Medicine
DX: R18.8 Other ascites (principal); E11.9 Type 2 diabetes mellitus without complications; E87.6 Hypokalemia; R29.90 Unspecified symptoms and signs involving the nervous system; K58.9 Irritable bowel syndrome, unspecified; E07.9 Disorder of thyroid, unspecified; I10 Essential (primary) hypertension
CPT/HCPCS: 36415; 80048; 83036

== ENCOUNTER 2024-09-22 11:45 | Emergency (ER) | payer MEDICARE, BC, SELFPAY ==
[2024-09-22] VITALS (7 sets, daily range): BP systolic 127–178; BP diastolic 48–67; PULSE 60–66; RESP 10–18; TEMP 36.2; O2SAT 95–100
--- NOTE | ~2024-09-22 | CT_ITS ---
EXAMINATION: CT abdomen pelvis w con DATE: 09/22/2024 17:04 INDICATION: Abdominal pain. Nausea, vomiting, and diarrhea. TECHNIQUE: Computed tomography (CT) of the abdomen and pelvis was performed with 100 mL Omnipaque 350 intravenous contrast. Automated exposure control and iterative reconstruction technique were employe d. The dose-length product was 296.43 mGy-cm. COMPARISON: CT abdomen and pelvis 07/19/2023 FINDINGS: The visualized portions of the lung bases demonstrate mild atelectasis. No pleural effusion . The heart size is normal. No pericardial effusion. Paraesophageal varices are noted. The liver demo nstrates surface nodularity, consistent with cirrhosis. Splenomegaly is noted. The pancreas, adrenal glands, and kidneys are normal. There is a 7 mm fibroid in the uterus. There are prominent periuterin e veins and ovarian veins, consistent with pelvic venous insufficiency. There is diverticulosis of th e colon without evidence of diverticulitis. There is wall thickening of the ascending colon, consiste nt with interstitial edema. There are no dilated loops of bowel. There is calcified atherosclerosis o f the aorta and many of the other arteries. There are no pathologically enlarged lymph nodes. There i s trace pelvic ascites. There is mild chronic anterior wedging of T11-L1 vertebral bodies. There is m oderate lumbar spondylosis. IMPRESSION: 1. Cirrhosis of the liver with portal venous hypertension. 2. Pelvic venous insufficiency. Reviewed, dictated and finalized at location [facility] [employer]
--- OUTSIDE RECORDS SUMMARY | 2024-09-22 12:44 | XMS_ITS | Continuity of Care Document ---
Author Organization [facility] Address [address] [place] [address] Phone Care Team Providers Care Chief Wheelage Clerk Name Role Phone Nicola Mcwilliams Unavailable Unavailable [...] Diagnoses Date Provider Providers Copied on Encounter [facility], [address] [place] [address] [address], [place], [place], [id number], [place] tel:[phone] SEC [facility] No Information 0-201 0 Poppy Petersen. Francisco [facility] [address], [place], [address], [place]. tel:[phone] Referring Provider: Francisco Javier Leblanc [facility] [address], [place], [address]. tel:[phone] [facility], [address] [place] [address] [address], [place], [place], [id number], [place] tel:[phone] SEC [place] [facility] No Information Jul-0 5-200 9 Poppy Edestuardo. [address] [facility] , [address], [place], [address], [place]. tel:[phone] [facility], [address], [place], [place], [id number], tel:[phone] [facility] No Information Sep-1 2-200 8 Doiterence Petersen. [address] [facility] , [address], [place], [address], [place]. tel:[phone] Office/outpat ient Visit, [facility], [address], [place], [place], [id number], [place] tel:[phone] [facility] No Information Darell-2 5-200 7 Poppy Petersen. [address] [facility] , [address], [place], [address], [place]. tel:[phone] Family History Family Member Type Diagnosis Age At Onset No Information Payers Payer name Insurance type Covered green party ID Authoriza tion(s) Medicare [facility] [id number] [id number] Social History Type Description Quantity Date Captured [...]
--- OUTSIDE RECORDS SUMMARY | 2024-09-22 12:44 | XMS_ITS | CONTINUITY OF CARE DOCUMENT ---
Author Name ginna chacko Address Unknown Organization [facility] Address [address] [place] [address] [address] [place] [address] Phone [phone] Care Team Providers Care X Ray Technologist Name Role Phone ginna chacko Unavailable Unavailable
[2024-09-22 14:11] LABS: Basophils Percent Auto 0.6 % (0.2-1.2); Eosinophils Absolute Auto 0.1 K/mm3 (0-0.3); Eosinophils Percent Auto 3.1 % (0-4.4); Hematocrit 33.4 % (37.0-47.0); Hemoglobin 11.5 g/dL (12.0-15.0); Immature Granulocyte Absolute 0.01 K/mm3 (0.00-0.031); Immature Granulocyte Percent A 0.3 % (0-0.5); Lymphocytes Absolute Auto 1.02 K/mm3 (0.9-3.2); Lymphocytes Percent Auto 31.9 % (18.3-44.2); Mean Corpuscular HGB Conc 34.4 g/dl (32-36); Mean Corpuscular Hemoglobin 32.9 pg (26-34); Mean Corpuscular Volume 95.4 fl (80-100); Mean Platelet Volume 10.4 fl (7.4-10.4); Monocytes Absolute Auto 0.3 K/mm3 (0.1-0.6); Monocytes Percent Auto 7.8 % (2.6-8.5); Neutrophils Absolute Auto 1.8 K/mm3 (1.3-6.7); Neutrophils Percent Auto 56.3 % (45.5-73.1); Platelet Count Result 60 k/mm3 (150-375); Red Cell Distribution Width 13.5 % (11.5-14.5); White Blood Count 3.2 K/mm3 (4.5-10.0)
[2024-09-22 14:21] LABS: Alanine Aminotransferase 49 U/L (6-35); Albumin Level 3.3 g/dL (3.5-5.1); Alkaline Phosphatase 106 U/L (38-126); Anion Gap 3 mmol/L (4-12); Aspartate Amino Transferase 62 U/L (14-36); Bilirubin,Total 2.3 mg/dL (0.2-1.3); Blood Urea Nitrogen 24 mg/dL (7-17); Calcium 8.7 mg/dL (8.4-10.2); Carbon Dioxide 26 mmol/L (22-30); Chloride 108 mmol/L (98-107); Estimated CRCL calculation 35 ml/min; Estimated Glomerular Filt Rate 60; Glucose 106 mg/dL (65-110); Lipase 167 U/L (23-300); Potassium 3.9 mmol/L (3.4-5.0); Sodium 137 mmol/L (137-145)
--- NOTE | 2024-09-22 14:25 | ED.NAVMDI ---
HPI - Nausea/Vomiting/Diarrhea General Chief complaint: Nausea/Vomiting/Diarrhea Stated complaint: n/v/d Time Seen by Provider: 09/22/24 13:44 History of Present Illness HPI Narrative: Patient with history of cirrhosis for the last month has been having nausea, vomiting, bloated sensation and poor appetite. Undergoing radiation therapy for breast cancer currently Related Data Home Medications ?Medication ?Instructions ?Recorded ?Confirmed ?Last Taken ?Type cyclosporine 0.05 % eye drops in a 0.05 % ophthalmic (eye) BID 09/04/19 06/16/24 1 Day Ago History dropperette (Restasis) ~07/19/23 nadolol 40 mg tablet (Corgard) 40 mg PO DAILY 10/21/21 06/16/24 1 Day Ago History ~07/19/23 ascorbic acid (vitamin C) 500 mg 500 mg PO DAILY 10/15/22 06/16/24 1 Day Ago History capsule ~07/19/23 aspirin 81 mg chewable tablet 81 mg PO DAILY 03/07/24 06/16/24 Unknown History mupirocin 2 % topical ointment 2 applic topical DAILY 03/20/24 06/16/24 Unknown History calcium 250 mg tablet 600 mg PO DAILY 06/16/24 06/16/24 Unknown History furosemide 20 mg tablet 20 mg PO QAM 08/28/24 Unknown History spironolactone 50 mg tablet 50 mg PO DAILY 08/28/24 Unknown History Allergies Allergy/AdvReac Type Severity Reaction Status Date / Time codeine Allergy Intermediate ABDOMINAL Verified 08/29/24 12:56 CRAMPING/DISTRESS acetaminophen (From [place]) AdvReac Severe Vomiting Verified 08/29/24 12:56 hydrocodone (From [place]) AdvReac Severe Vomiting Verified 08/29/24 12:56 adhesive tape AdvReac Unknown RASH, Verified 08/29/24 12:56 REDNESS Review of Systems Review of Systems: All systems reviewed & are unremarkable except as noted in HPI and below PMFSH Past Medical History Medical History Chronic sinusitis Cirrhosis Cirrhosis Colon polyp DM type 2 (diabetes mellitus, type 2) Dry eyes, bilateral Dyslipidemia Esophageal varices GERD (gastroesophageal reflux disease) Hypertension Hypothyroidism Lumbar degenerative disc disease Osteoarthritis Skin cancer of face Thrombocytopenia Urinary incontinence Varicose vein of leg Surgical History Surgical History H/O arthroscopic knee surgery H/O sinus surgery History of cataract surgery Hx of appendectomy S/P cholecystectomy Family History Family History Father Hypertension Mother Cerebrovascular accident Valvular heart disease Diabetes mellitus Hypertension Heart disease Daughter Breast cancer Diabetes mellitus Son Hypertension Sibling Diabetes mellitus Alcoholism Daughter Breast cancer Diabetes mellitus Hypertension Grandparent Alcoholism Diabetes mellitus Social History Social History Smoking status: Never smoker Alcohol intake: never Substance use: never Substance use type: does not use Do You Feel Safe in your Home?: Yes Lack of Transportation: No Lack of Food: Never True Current Housing: I Have Housing Concerned About Future Housing: No Difficulty Paying Gas/Electric Bills: No Difficulty Paying for Meds: No Currently Unemployed: No Education: Trade/Vocational Certificate Difficulty w/ Childcare or Family Care: No Living arrangements: with family Spiritual care concerns: No Exam Narrative: EXAMINATION OF ORGAN SYSTEMS/BODY AREAS: Constitutional: Vital signs per nursing GENERAL:[No acute distress, non-toxic appearing.] HEAD: Normal with no signs of head trauma. EYES: EOMI, conjunctiva normal ENT: Hearing grossly intact LUNGS: Nonlabored breathing. HEART: [Regular rate and rhythm] ABD: [Soft], [nontender to palpation] EXT: Normal range of motion SKIN: [No rashes or lesions.] NEURO: [Alert and oriented x 3. No gross focal sensory or strength deficits.] PSYCH: Normal affect Course Vital Signs Vital signs: Vital Signs Temperature 97.2 F L 09/22/24 12:20 Pulse Rate 61 09/22/24 12:20 Respiratory Rate 18 09/22/24 12:20 Blood Pressure 127/48 L 09/22/24 12:20 Pulse Oximetry 100 09/22/24 12:20 Oxygen Delivery Room Air 09/22/24 12:20 Temperature 97.2 F L 09/22/24 12:20 Pulse Rate 60 09/22/24 16:04 Respiratory Rate 13 09/22/24 16:04 Blood Pressure 141/61 H 09/22/24 16:04 Pulse Oximetry 95 09/22/24 16:04 Oxygen Delivery Room Air 09/22/24 12:20 MDM - Nausea/Vomiting/Diarrhea MDM Narrative Medical decision making narrative: Patient presenting with nausea, vomiting, diarrhea, ongoing for several weeks but worse last few days, she is on Lasix but stopped taking the last few days and has been trying to take lots of sips of Gatorade. Vital signs within acceptable limits here, labs slightly consistent with possible dehydration. CT obtained which does not show much ascites, I with her for cautiously give her small amount of fluids. On re-evaluation, after Zofran and some fluids, she is smiling, says she feels better at, and that she is hungry and wants to eat. She will be given prescription for Zofran, ammonia, asked to follow up with her GI/liver specialist, with return precautions. Family at bedside. Lab Data 09/22/24 14:06 09/22/24 14:06 Labs: Lab Results 09/22/24 09/22/24 Range/Units 14:06 15:59 WBC 3.2 L (4.5-10.0) K/mm3 RBC 3.50 L (4.2-5.4) M/mm3 Hgb 11.5 L (12.0-15.0) g/dL Hct 33.4 L (37.0-47.0) % MCV 95.4 (80-100) fl MCH 32.9 (26-34) pg MCHC 34.4 (32-36) g/dl RDW 13.5 (11.5-14.5) % Plt Count 60 L (150-375) k/mm3 MPV 10.4 (7.4-10.4) fl Immature Gran % (Auto) 0.3 (0-0.5) % Neut % (Auto) 56.3 (45.5-73.1) % Lymph % (Auto) 31.9 (18.3-44.2) % [place] % (Auto) 7.8 (2.6-8.5) % Eos % (Auto) 3.1 (0-4.4) % Baso % (Auto) 0.6 (0.2-1.2) % Lymph # (Auto) 1.02 (0.9-3.2) K/mm3 [place] # (Auto) 0.3 (0.1-0.6) K/mm3 Eos # (Auto) 0.1 (0-0.3) K/mm3 Baso # (Auto) 0.0 (0.0-0.1) K/mm3 Abs Immat Gran (auto) 0.01 (0.00-0.031) K/mm3 Absolute Neuts (auto) 1.8 (1.3-6.7) K/mm3 Absolute Nucleated RBC 0.000 (0.0-0.012) K/mm3 Nucleated RBC % 0.0 (0.0-0.2) % Sodium 137 (137-145) mmol/L Potassium 3.9 (3.4-5.0) mmol/L Chloride 108 H (98-107) mmol/L Carbon Dioxide 26 (22-30) mmol/L Anion Gap 3 L (4-12) mmol/L BUN 24 H (7-17) mg/dL Creatinine 0.90 (0.7-1.0) mg/dL Estim Creat Clear Calc 35 ml/min Estimated GFR 60 (59 - ) Glucose 106 (65-110) mg/dL Calcium 8.7 (8.4-10.2) mg/dL Total Bilirubin 2.3 H (0.2-1.3) mg/dL AST 62 H (14-36) U/L ALT 49 H (6-35) U/L Alkaline Phosphatase 106 (38-126) U/L Total Protein 7.0 (6.3-8.2) g/dL Albumin 3.3 L (3.5-5.1) g/dL Lipase 167 (23-300) U/L Urine Color Yellow (Yellow) Urine Appearance Clear (Clear) Urine pH 5.5 (5.0-9.0) Ur Specific [place] 1.008 (1.001-1.035) Urine Protein Negative (Negative) mg/dL Urine Glucose (UA) Negative (Negative) mg/dL Urine Ketones Negative (Negative) mg/dL Ur Blood (Man) Negative (Negative) Urine Nitrate Negative (Negative) Urine Bilirubin Negative (Negative) Urine Urobilinogen 0.2 (<2.0) mg/dL Leukocyte Esterase Rfl Negative (Negative) NOEL/UL Discharge Plan Discharge Clinical Impression: Nausea, vomiting, and diarrhea Patient Disposition: Home, Self-Care Condition: Stable Instructions: Acute Nausea and Vomiting (ED), Acute Diarrhea (ED) Additional Instructions: Please follow-up with your liver specialist/GI doctor, you can always return to the emergency room for any further issues. Patient Language: Georgian Prescriptions: New ondansetron 4 mg tablet,disintegrating 4 mg PO Q8H PRN (Reason: nausea and vomiting) Qty: 10 0RF loperamide [Anti-Diarrheal (loperamide)] 2 mg capsule 2 mg PO Q6H PRN (Reason: loose stool) Qty: 14 0RF alum-mag hydroxide-simeth [Maalox Advanced] 200-200-20 mg/5 mL suspension 10 ml PO QID PRN (Reason: dyspepsia) Qty: 100 0RF Rx Instructions: administer between meals and at bedtime No Action cyclobenzaprine 10 mg tablet 10 mg PO TID PRN (Reason: muscle spasm) Qty: 60 0RF aspirin 81 mg tablet,chewable 81 mg PO DAILY Patient Comments: STATES SHE HAS NOT TAKEN FOR 2 MONTHS R/T PROCEDURES/TESTS furosemide 20 mg tablet 20 mg PO QAM spironolactone 50 mg tablet 50 mg PO DAILY nadolol [Corgard] 40 mg tablet 40 mg PO DAILY mupirocin 2 % ointment 2 applic topical DAILY cyclosporine [Restasis] 0.05 % dropperette 0.05 % ophthalmic (eye) BID ascorbic acid (vitamin C) 500 mg capsule 500 mg PO DAILY calcium 250 mg Tablet 600 mg PO DAILY cwfisauelcxo-Af-mgss-minerals Tablet 1 tablet PO DAILY Qty: 30 1RF ferrous sulfate [Iron (ferrous sulfate)] 325 mg (65 mg iron) tablet 325 mg PO .COMPLEX Qty: 90 0RF Rx Instructions: 325 mg orally every other day metformin 500 mg tablet extended release 24 hr 500 mg PO DAILY Qty: 360 1RF losartan 25 mg tablet See Rx Instructions .ROUTE .COMPLEX Qty: 90 0RF Dose Instruction: Take 1 tablet by mouth nightly Rx Instructions: Take 1 tablet by mouth nightly levothyroxine 100 mcg tablet 100 mcg PO DAILY Qty: 90 1RF omeprazole 20 mg capsule,delayed release(DR/EC) See Rx Instructions .ROUTE .COMPLEX Qty: 30 0RF Dose Instruction: Take 1 capsule by mouth once daily Rx Instructions: Take 1 capsule by mouth once daily losartan 50 mg tablet See Rx Instructions .ROUTE .COMPLEX Qty: 90 0RF Dose Instruction: Take 1 tablet by mouth once daily Rx Instructions: Take 1 tablet by mouth once daily Follow-up/Referrals: Isreal Lin MD [Primary Care Provider] - 2 Days
[2024-09-22] MEDS: MAG HYDROX/AL HYDROX/SIMETH 30 ML UDC PO (15:45)
[2024-09-22] MEDS: SODIUM CHLORIDE 0.9% IV 1,000 ML 999 ML IV CONT (15:45)
[2024-09-22] MEDS: ONDANSETRON INJ 4 MG/2 ML VIAL IV PUSH (15:46)
[2024-09-22 16:09] LABS: Add Urine Microscopic? NO; Appearance Urine Clear (Clear); Bilirubin Urine Negative (Negative); Blood Urine Negative (Negative); Color Urine Yellow (Yellow); Glucose Urine UA Negative (Negative); Ketones Urine Negative (Negative); Leukocyte Esterase Ur Negative LEU/UL (Negative); Nitrate Urine Negative (Negative); Protein Urine Negative (Negative); Specific Grav Ur 1.008 (1.001-1.035); Urobilinogen Urine 0.2 mg/dL (<2.0); pH Urine 5.5 (5.0-9.0)
--- OUTSIDE RECORDS SUMMARY | 2024-09-25 21:54 | XMS_ITS | Continuity of Care Document ---
Author Organization [facility] Address [address] [place] [address] Phone Care Team Providers Care Multiple Drum Sander Name Role Phone Nicola Mcwilliams Unavailable Unavailable [...] Diagnoses Date Provider Providers Copied on Encounter [facility], [address] [place] [address] [address], [place], [place], [id number], [place] tel:[phone] SEC [facility] No Information 0-201 0 Poppy Petersen. Francisco Javier [facility] [place] [address], [place], [address], [place]. tel:[phone] Referring Provider: Francisco Javier Le[facility] [address], [place], [address]. tel:[phone] [facility], [address] [place] [address] [address], [place], [place], [address], [place] tel:[phone] SEC [place] [facility] No Information Jul-0 5-200 9 Poppy Edestuardo. [address] [facility] , [address], [place], [address], [place]. tel:[phone] [facility], [address], [place], [place], [id number], tel:[phone] SEC [facility] No Information Sep-1 2-200 8 Doiterence Petersen. [address] [facility] [place] , [address], [place], [address], [place]. tel:[phone] Office/outpat ient Visit, [facility], [address], [place], [place], [address], [place] tel:[phone] SEC [facility] No Information Darell-2 5-200 7 Poppy Petersen. [address] [facility] , [address], [place], [address], [place]. tel:[phone] Family History Family Member Type Diagnosis Age At Onset No Information Payers Payer name Insurance type Covered constitution party ID Authoriza tion(s) Medicare [facility] [id number] [id number] Social History Type Description Quantity Date Captured [...]
--- OUTSIDE RECORDS SUMMARY | 2024-09-25 21:54 | XMS_ITS | CONTINUITY OF CARE DOCUMENT ---
Author Name ginna chacko Address Unknown Organization [facility] Address [address] [place] [address] [address] [place] [address] Phone [phone] Care Team Providers Care Electronics Teacher Name Role Phone ginna chacko Unavailable Unavailable
--- OUTSIDE RECORDS SUMMARY | 2024-09-25 21:55 | XMS_ITS | Encounter Summary ---
Author Organization [facility] Address [address] [facility] [place] [address] Care Team Providers Care Motor Inspection Mechanic Name Role Phone Karin Cordoba KAVON-MEAT SALES AND STORAGE MANAGER Primary Care Provider + Reason for Visit * Reason Comments Cirrhosis COSTA Encounter Details Date Type Department Care Team (Late st Contact Info) Description 11/16/2022 10:30 AM PIT RECORDER Office Visit [facility] - [place] [address] [place] [address], [place] [phone] Humphrey Chapa i, MD [address] [place] [address] [place] [address] 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); Esophageal varices Social History Tobacco Use Types Packs/Day Years Used Date Smoking Tobacco: Never Smokeless Tobacco: Never Tobacco Cessation:Counseling Given: Not Answered Alcohol Use Standard Drinks/Week Comments No 0 (1 standard drink = 0.6 oz pur e alcohol) Sex and Gender Information Value Date Recorded Sex Assigned at Not on file Gender Identity Not on file Sexual Orientation Straight 08/11/2024 10 :05 AM CDT documented as of this encounter Last Filed Vital Signs Vital Sign Reading Time Taken Comments Blood Pressure 169/71 11/16/2022 11:32 AM PIT RECORDER Pulse 71 11/16/2022 11:20 AM PIT RECORDER Temperature - - Respiratory Rate 14 11/16/2022 11:20 AM PIT RECORDER Oxygen Saturation 100% 11/16/2022 11:20 AM PIT RECORDER Inhaled Oxygen Concentration - - Weight 68 kg (150 lb) 11/16/2022 11:20 AM PIT RECORDER Height 160 cm (5' 2.99 ) 11/16/2022 11:20 AM PIT RECORDER Body Mass Index 26.58 11/16/2022 11:20 AM PIT RECORDER documented in this encounter Patient Instructions * Patient Instructions* Humphrey Vanegas MD - 11/16/2022 12:40 PM PIT RECORDER Thank you for entrusting your healthcare to the physicians and other specialists at the [facility] clinic today. Following your visit, you may receive a survey via email or U.S. Mail. We encourage you to respond to this confidential survey about your care. Your feedback helps us to provide quality service at every visit. Thank you for your help in making our practice meet higher expectations. Contact information: To reach the clinic please call (8 am to noon, 1 to 4:30 pm weekdays). Press 1 to make schedule or cancel an appointment Press 2 for pharmacy refills Press 3 to speak with a nurse regarding a change in your condition. Many times your nurse may be busy seeing patients in clinic. In order to meet your needs timely we have implemented a nurse triage line to take your calls. We are closed from 12-1 for lunch After hours please call (hospital main number), ask the frame gate mortiser operator to call the gastroenterology fellow therapeutic recreation director. Emergency: call [phone] or go to your closest emergency room. We encourage you to use NaviExpert to send and receive messages and review your test results. Let us know if you need information on signing up for NaviExpert. More information about us and our services can be found on our websites at [email or web address] and [email or web address] [email or web address] Information about the [facility] [place], a fjy-atd-wzjkxx organization supporting liver disease research by your doctors and researchers at [facility], can be found at: www.[email or web address].org IMPORTANT 11/16/2022 The following information and instructions are from your visit today: Get blood tests at [facility] in April. Get liver ultrasounds done in January and July. The following are my general recommendations for people with liver problems: 1. Stay active. Walking on a daily basis is a good start, but it is better to do a combination of aerobic exercise (the kind that gets you sweaty and out of breath) for at least one half hour per dayalternating with strength training (weights, yoga). Many people find that it helps to have a hardware trainer to provide guidance if you can afford it. 2. Eat healthy foods. Don't diet because just using that word to describe what we eat means that we are depriving ourselves. Just focus on heathy eating in reasonable portion sizes and keep indiscretions to a minimum. Good advice on nutrition can be found on the website for the [employer] Healthy Eating Pyramid. Either search for that on the internet or go to: http://www.[facility].[place].edu/nutritionsource/ljkx-wqpaco-cbl-eat/pyramid/ Also, the Mediterranean Diet is a good choice to consider because it focuses on fruits, vegetables, whole grains, healthy oils (e.g. olive oil), and fish. Just search the internet for mediterranean diet or go to www.heart.org and search that website for mediterranean diet. In general keep the solid fats (butter, shortening/fried foods) to a minimum and use olive oil or canola oil when a little oil is needed. For the evening munchies, keep healthy snacks around such as apple slices or those delicious littlebite-sized tomatoes. 3. Avoid fast foods because they are typically very high in calories and salt. (Some tristin-burgers have more fat than a whole stick of butter!). In general, watch out for restaurant meals because the portion sizes are way too large (often labeled as value ). Share meals in restaurants or split yourmeal into a take-home bag even before your start eating. 4. Don't drink sugar sweetened beverages (examples: Pepsi, Coke, Mtn Dew, Haven Tea, Sobe drinks,bottled lemonaid, bottled juice, KoolAid). Just a 12 oz can of soda contains almost 10 sugar cubes of sugar. Sweet teas are the same. Your liver converts that sugar into fat and that fat in the livercan cause liver damage. 5. Be sure to discuss with Dr. Vanegas if you can have an occasional alcoholic drink. Occasional means 1-2 per week at most. If you have a history of alcohol dependence or abuse, you should not drink any alcohol. 6. Tylenol (acetaminophen) is okay to take for pain, but you should limit your dose to no more [id number] mg daily. This means that you should take no more than 4 tablets per day (500 mg acetaminopheneach). Remember that acetaminophen is in other medications (eg, Percocet, Vicodin, Mucinex) and the amountthat you get from these medications needs to be included in the daily total. 7. Statin drugs for treating an elevated cholesterol level are generally safe for people with fatty liver disease, despite the warnings in TV ads about using one of these medications when you have liver disease. If one is started, it is worthwhile to check liver enzymes a few times over the first6 months to be certain. As with any medication, if you have any new symptoms after starting a medication, report it immediately to your doctor. RECORDER documented in this encounter Progress Notes * Humphrey Vanegas MD - 11/16/2022 12:07 PM CST I saw Ms. Erazo in [facility] at [facility] today for follow up visit regarding: Chief Complaint Patient presents with ??? 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 No GI bleeding in the past 6 months, some before last EGD in September when Dr. Garcia did the last EGD. Reportedly had large varices, no banding per pt. No pedal edema or increased abdominal girth. She is adherent with dietary sodium restriction. She reports that her level of energy is variable, some fatigue. For exercise she has been walking some. Impediments to regular exercise she reports include cold. She notes periodic right upper quadrant abdominal pain. Sharp and dull. Fast food consumption: more than I should. Sugar sweetened beverage consumption: none. Current Outpatient Medications Medication Sig ??? ascorbic acid (VITAMIN C) 500 MG tablet Take 1 (one) tablet by mouth once daily ??? aspirin (ASPIRIN) 81 MG tablet Take 1 (one) tablet by mouth once daily ??? Calcium Carbonate-Vitamin D (CALCIUM-CARB 600 + D PO) Take 1 tablet by mouth ??? cycloSPORINE (RESTASIS) 0.05 % ophthalmic suspension Instill 1 (one) drop into both eyes 2 times daily ??? levothyroxine (SYNTHROID) 125 MCG tablet Take 100 mcg by mouth daily before breakfast ??? losartan (COZAAR) 25 MG tablet Take 1 (one) tablet by mouth at bedtime ??? losartan (COZAAR) 50 MG tablet Take 1 (one) tablet by mouth once daily ??? metFORMIN (GLUCOPHAGE) 500 MG tablet 1 (one) tablet 2 times daily with morning and evening meal ??? montelukast (Singulair) 10 MG tablet Take 1 (one) tablet by mouth at bedtime ??? multivitamin (OPURITY) CHEW tablet take 1 tablet by oral route every day with food ??? nadolol (Corgard) 40 MG tablet Take 1 tablet by mouth once daily ??? omeprazole (PRILOSEC) 20 MG capsule Take 1 (one) capsule by mouth daily before breakfast ??? Pediatric Fskubquc-Oceurcbj-Y (COMPLETE MULTI-VITAMIN PO) Take by mouth once daily No current facility-administered medications for this visit. I have reviewed with Ms. Erazo her Medical, Social and Family history and I have updated and corrected these sections of her [facility] electronic health record based on my discussions with her and/or her family members present at her visit today. She describes her current alcohol consumption as none. Social History Social History Narrative Lives with . Has 2 children and 2 grandchildren. 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 Review of systems: Chest pain: none since adjusting synthroid recently. Shortness of breath: none. Dyspnea on exertion: stairs. Snoring at night: better after sinus surgery in Sep. Nausea and vomiting: none. Lots of bloating/gurgling. Reflux or GERD symptoms: none on PPI. Constipation or diarrhea: some loose stools. Improves with fiber. On exam today, she appeared alert and anicteric. I reviewed today's vital signs with the patient. Vitals: 11/16/22 1120 11/16/22 1132 BP: 172/75 169/71 Pulse: 71 Resp: 14 SpO2: 100% Weight: 68 kg (150 lb) Height: 1.6 m (5' 2.99 ) Body mass index is 26.58 kg/m??. Wt Readings from Last 3 Encounters: 11/16/22 68 kg (150 lb) 11/17/21 69.9 kg (154 lb) 11/18/20 70.9 kg (156 lb 6.4 oz) Affect okay. Seen with . Skin: no spider angiomata. Lungs were clear to auscultation bilaterally. Heart sounds were regular rate and rhythm. There were no murmurs. Abdomen was soft and nontender. Liver edge palpable: no. Spleen palpable: no. Ascites: none. Hernias: none. Pretibial edema: none. Relevant test results: Recent Labs Component Name 11/02/22 0957 11/10/21 0000 11/18/20 1229 08/27/20 0000 11/13/19 0834 03/08/18 0000 03/30/16 0853 10/01/14 1536 10/01/14 1535 TBIL 1.7* 1.40 - - - 1.60* - - - ALKPHOS 82 81 71 - 72 82 65 - 60 ALT 34 36 31 - 41 71* 48* - 65* AST 54* 54 38* - 43* 69* 41* - 57* SODIUM 137 137 - 137 - 144 - - - POTASSIUM 3.8 4.0 3.8 4.2 3.9 4.2 - - 3.9 CO2 28 28 28 27 24 26 23 - 27 CREATININE - - 0.8 - 0.8 - 0.92 - 1.0 BUN 14 19 15 17 15 17 15 - 19 HGB 10.8* 11.7 11.8* - 12.9 12.6 13.1 - 14.0 WBC 3.4* 3.1 3.3* - 3.0* 3.6* 4.1 - 5.9 PLTCOUNT - - 81* - 87* - - - 169 INR 1.2 1.0 1.1 - 1.1 1.1 1.0 - 1.0 - = values in this interval not displayed. 07/24/22 US: nodular liver, no focal lesions, patent vessels, no mention of ascites Assessment and Plan: 1. COSTA cirrhosis 1. Remains well compensated. Elevated bili has been mainly unconjugated in the past so she likely has an element of Gilbert's contributing to her variable total bili elevations (of no consequence). 2. She requests lab orders for next year--I'll give those to her to do locally. 3. Specific recommendations were provided regarding diet and exercise including the avoidance of sugar sweetened beverages 4. Up to date on imaging surveillance for hepatocellular carcinoma, will repeat US in January and July locally. 2. Possible symptomatic ascites in the past. 1. Continue low sodium diet. No diuretics needed at this time. 3. Esophageal varices in 2018 and again in 2021 per pt 1. Continue nadolol. 2. Repeat EGD per Dr. Garcia. An appointment was scheduled for her to see me in followup in one year. Coding comment: this visit required 34 minutes, of which >50% was spent directly counseling the patient and/or family member(s) on their diagnosis, prognosis, and treatment options as outlined in the assessment and plan above as well as the written instructions in the after visit summary provided to the patient. Letter: Karin Cordoba APRN-MEAT SALES AND STORAGE MANAGER [address] [address] Orders Placed This Encounter ??? US ABDOMEN LIMITED ??? US ABDOMEN LIMITED ??? CBC WITH DIFFERENTIAL ??? COMPREHENSIVE METABOLIC PANEL ??? PT-INR ??? BILIRUBIN DIRECT ??? ALPHA FETOPROTEIN BLOOD TUMOR MARKER ??? CBC WITH DIFFERENTIAL ??? PT-INR ??? IRON + TIBC + FERRITIN ??? BASIC METABOLIC PANEL (CALCIUM TOTAL) ??? HEPATIC FUNCTION PANEL ??? ALPHA FETOPROTEIN BLOOD TUMOR MARKER [facility] or local--pt to decide Coding Rationale New or est? Established Patient Total time spent on date of encounter: 34 minutes Highest problem complexity: 2 or more stable chronic illnesses Data review: Ordering of test(s): 3 or more unique test(s) ordered Highest level of risk: Moderate Suggested code: 94267 RECORDER documented in this encounter Plan of Treatment Upcoming Encounters Date Type Department Care Team (Late st Contact Info) Description 10/23/2024 10:00 AM PIT RECORDER Office Visit [facility] - GI [address] [facility], [place] [phone] Humphrey Esquivel MD [address] [place] [address] [place] [address] Scheduled Orders Name Type Priority Associated Diagnoses Orde r Schedule CBC WITH DIFFERENTIAL Lab Routine 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) Ordered: 11/16/2022 COMPREHENSIVE METABOLIC PANEL Lab Routine 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) Ordered: 11/16/2022 PT-INR Lab Routine 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) Ordered: 11/16/2022 BILIRUBIN DIRECT Lab Routine 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) Ordered: 11/16/2022 ALPHA FETOPROTEIN BLOOD TUMOR MARKER Lab Routine 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) Ordered: 11/16/2022 CBC WITH DIFFERENTIAL Lab Routine 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) Esophageal varices Ordered: 11/16/2022 PT-INR Lab Routine 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) Esophageal varices Ordered: 11/16/2022 IRON + TIBC + FERRITIN Lab Routine 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
--- OUTSIDE RECORDS SUMMARY | 2024-09-25 21:55 | XMS_ITS | Encounter Summary ---
Author Organization [facility] Address [address] [facility] [place] [address] Care Team Providers Care Heel Seat Fitter Name Role Phone Unavailable Primary Care Provider Unavailabl e Reason for Visit * Reason Comments Results Encounter Details Date Type Department Care Team (Late Contact Info) Description 07/28/2019 Telephone [facility] [address], [place] [address] [place] [address] Caitlin Mace RN Results Social History Tobacco Use Types Packs/Day Years Used Date Smoking Tobacco: Never Smokeless Tobacco: Never Alcohol Use Standard Drinks/Week Comments No 0 (1 standard drink = 0.6 oz pur e alcohol) Sex and Gender Information Value Date Recorded Sex Assigned at Not on file Gender Identity Not on file Sexual Orientation Straight 08/11/2024 10 :05 AM CDT documented as of this encounter Miscellaneous Notes * Telephone Encounter - Caitlin Mace RN - 07/28/2019 2:22 PM CDT Pt called and told given her results of her US of her abdomen, pt verbailzed understanding. documented in this encounter Plan of Treatment Upcoming Encounters Date Type Department Care Team (Late Contact Info) Description 10/23/2024 10:00 AM BUSINESS TEST ANALYST Office Visit [facility] - [address] [facility] [place] [address] Humphrey Esquivel MD [address] [place] [address] documented as of this encounter Visit Diagnoses Not on filedocumented in this encounter
--- OUTSIDE RECORDS SUMMARY | 2024-09-25 21:55 | XMS_ITS | Encounter Summary ---
Author Organization [facility] Address [address] [facility] [place] [address] Care Team Providers Care Drill Operator Automatic Name Role Phone Unavailable Primary Care Provider Unavailabl e Encounter Details Date Type Department Care Team (Late Contact Info) Description 03/08/2018 Orders Only [facility] GI [address] [place] [address] Emre Paez, RN Cirrhosis of liver without ascites, unspecified hepatic cirrhosis type (HCC) Social History Tobacco Use Types Packs/Day Years Used Date Smoking Tobacco: Never Smokeless Tobacco: Never Alcohol Use Standard Drinks/Week Comments No 0 (1 standard drink = 0.6 oz pur e alcohol) Sex and Gender Information Value Date Recorded Sex Assigned at Not on file Gender Identity Not on file Sexual Orientation Straight 08/11/2024 10 :05 AM CDT documented as of this encounter Plan of Treatment Upcoming Encounters Date Type Department Care Team (Late Contact Info) Description 10/23/2024 10:00 AM STOCKROOM SELECTOR Office Visit [facility] - GI [address] [place] [address], [place] [phone] Humphrey Esquivel MD [address] [place] [address] [place] [address] Scheduled Orders Name Type Priority Associated Diagnoses Orde r Schedule CBC W AUTO DIFFERENTIAL Lab Routine Cirrhosis of liver without ascites, unspecified hepatic cirrhosis type (HCC) Ordered: 03/08/2018 COMPREHENSIVE METABOLIC PANEL Lab Routine Cirrhosis of liver without ascites, unspecified hepatic cirrhosis type (HCC) Ordered: 03/08/2018 PT-INR Lab Routine Cirrhosis of liver without ascites, unspecified hepatic cirrhosis type (HCC) Ordered: 03/08/2018 documented as of this encounter Visit Diagnoses Diagnosis Cirrhosis of liver without ascites, unspecified hepatic cirrhosis type (HCC)- Primary documented in this encounter
--- OUTSIDE RECORDS SUMMARY | 2024-09-25 21:55 | XMS_ITS | Encounter Summary ---
Author Organization [facility] Address [address] [facility] [place] [address] Care Team Providers Care Christian Science Reader Name Role Phone Unavailable Primary Care Provider Unavailabl e Encounter Details Date Type Department Care Team (Latest Contact Info) Description 03/09/2012 Hospital Outpatient Visit [facility] DEFAULT [address] [place] [address] Franc Hernández MD [address] [place] [address] Discharge Disposition: Home or Self Care Social History Tobacco Use Types Packs/Day Years Used Date Smoking Tobacco: Never Assessed Sex and Gender Information Value Date Recorded Sex Assigned at Not on file Gender Identity Not on file Sexual Orientation Straight 08/11/2024 10 :05 AM CDT documented as of this encounter Plan of Treatment Upcoming Encounters Date Type Department Care Team (Late st Contact Info) Description 10/23/2024 10:00 AM ALL AROUND PATTERNMAKER Office [place] [facility] [place] [address] [place] [address], [place] [phone] Humphrey Esquivel MD [facility] DIV [place] [address] documented as of this encounter Procedures Procedure Name Priority Date/Time Associated Diagnosis Comments LAB HISTORICAL RESULTS-ONBASE Routine -ONBASE Routine 03/09/2012 5:38 PM CDT documented in this encounter Results * LAB HISTORICAL RESULTS-ONBASE (03/09/2012 5:38 PM CDT) 03/09/2012 5:38 PM CDT Historical Provider LAB - CHEMISTRY Aguila BURLESON Performing Organization Address [facility] [address]/[facility] de Phone Number [address] * LAB HISTORICAL RESULTS-ONBASE (03/09/2012 5:38 PM CDT) 03/09/2012 5:38 PM CDT Narrative [facility] - 03/09/2012 5:38 PM CDT A scan was deleted from the Results section by Ben Womack [FORD] on 03/10/2012 at 11:37 AM (File: [id number]) Historical Provider LAB - CHEMISTRY Aguila BURLESON Performing Organization Address [facility] [address]/[facility] de Phone Number [address] documented in this encounter Visit Diagnoses Not on filedocumented in this encounter
--- OUTSIDE RECORDS SUMMARY | 2024-09-25 21:55 | XMS_ITS | Encounter Summary ---
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) Social History Tobacco Use Types Packs/Day [...] (Late Contact Info) Description 10/23/2024 10:00 AM PALLIATIVE CARE NURSE Office Visit [facility] - GI [address] [place] [phone] Humhprey Esquivel MD [address] [place] [address] [place] [address] Scheduled Orders Name Type Priority Associated Diagnoses Orde r Schedule ALPHA FETOPROTEIN BLOOD TUMOR MARKER Lab Routine 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
--- OUTSIDE RECORDS SUMMARY | 2024-09-25 21:55 | XMS_ITS | Encounter Summary ---
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); Esophageal varices Social History [...] Sign Reading Time Taken Comments Blood Pressure 159/82 11/13/2019 8:49 AM TELESALES AGENT Pulse 62 11/13/2019 8:49 AM TELESALES AGENT Temperature 36.5 ??C (97.7 ??F) 11/13/2019 8:49 AM CS T Respiratory Rate 18 11/13/2019 8:49 AM TELESALES AGENT Oxygen Saturation 100% 11/13/2019 8:49 AM TELESALES AGENT Inhaled Oxygen Concentration - - Weight 69.8 kg (153 lb 12.8 oz) 11/13/2019 8:49 AM TELESALES AGENT Height 160 cm (5' 3 ) 11/13/2019 8:49 AM TELESALES AGENT Body Mass Index 27.24 11/13/2019 8:49 AM TELESALES AGENT documented in this encounter Patient Instructions * Patient Instructions* Humphrey Vanegas MD - 11/13/2019 10:05 AM TELESALES AGENT Thank you for entrusting your healthcare to the physicians and other specialists at the [facility] Gastro[facility]ology and [facility]ology clinic today. ?? Following your visit, you may receive a survey via email or U.S. Mail. We encourage you to respond to this confidential survey about your care. Your feedback helps us to provide quality service at every visit. Thank you for your help in making our practice meet higher expectations. ?? Contact information: To reach the clinic please call (8 am to noon, 1 to 4:30 pm weekdays). ? Press 1 to make schedule or cancel an appointment ? Press 2 for pharmacy refills ? Press 3 to speak with a nurse regarding a change in your condition. ? Many times your nurse may be busy seeing patients in clinic. In order to meet your needs timely we have implemented a nurse triage line to take your calls. ? We are closed from 12-1 for lunch ? After hours please call (hospital main number), ask the double reamer operator to call the gastroenterology fellow counselor nurses' association. ? Emergency: call 911 or go to your closest emergency room. ? We encourage you to use [employer] to send and receive messages and review your test results. Let us know if you need information on signing up for [employer]. ?? More information about us and our services can be found on our websites at [email or web address] and [email or web address]-[email or web address]-[email or web address] ?? Information about the [facility], a pfe-qqz-scqpxj foundation supporting liver disease research by your doctors and researchers at [facility], can be found at: Www.friendsoftheslulc.org ?? IMPORTANT 11/13/2019 ?? The following information and instructions are from your visit today: 1. Get liver ultrasounds done locally in January and July. 2. Change the atenolol to nadolol 40 mg daily. This is to get the added benefit of reducing the blood pressure on the varices so that they don't bleed. The following are my general recommendations for people with liver problems: 1. Stay active. Walking on a daily basis is a good start, but it is better to do a combination of aerobic exercise (the kind that gets you sweaty and out of breath) for at least one half hour per dayalternating with strengthtraining (weights, yoga). Many people find that it helps to have a trainerto provide guidance. 2. Eat healthy foods. Good advice on nutrition can be found on the website for the [place] Healthy Eating Pyramid. Either search for that on the internet or go to: http://www.[facility].olds.edu/nutritionsource/fnlo-mtjdsg-tuk-eat/pyramid/ 3. Avoid fast foods and sugar sweetened beverages (examples: Pepsi, Coke, Mtn Dew, Haven Tea, Sobe drinks, bottled lemonaid, bottled juice, KoolAid). 4. Avoid trans-fats. On the food label, these are called partially hydrogenated vegetable oil. Note that packages can say Zero trans-fats and the food label can say Trans-fat: 0 grams yet the food is allowed to contain up to a half gram of trans-fat per serving. To minimize cardiovascular risks (the chance of having a stroke or heart attack), the current recommendation is to eat no more that 2 grams of trans-fats daily. 5. Be sure to discuss with Dr. Vanegas if you can have an occasional alcoholic drink. Occasional means 1-2 per week at most. If you have a history of alcohol dependence or abuse, you should not drink any alcohol. 6. Tylenol (acetaminophen) is okay to take for pain, but you should limit your dose to no more [id number] mg daily. This means that you should take no more than 4 tablets per day (500 mg acetaminopheneach). Remember that acetaminophen is in other medications (eg, Percocet, Vicodin) and the amount that youget from these medications needs to be included in the daily total. 7. Statin drugs for treating an elevated cholesterol level are generally safe for people with fatty liver disease, despite what TV ads say about using one of these medications when you have liver disease. If one is started, it is worthwhile to check liver enzymes a few times over the first 6 months to be certain. As with any medication, if you have any new symptoms after starting a medication, report it immediately to your doctor. SALES AGENT documented in this encounter Progress Notes * Humphrey Vanegas MD - 11/13/2019 9:31 AM CST I saw Ms. Erazo in [facility] Clinic at [facility] today for follow up visit regarding: Chief Complaint Patient presents with ??? Cyr ??? 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 Has had 2 episodes of orthostatic symptoms after bending/cleaning. No loss of consciousness. Has issues with word finding. No overt confusion. No GI bleeding. Occasional sensation of increased abd girth. Mostly compliant with low sodium diet. She reports that her level of energy is usually okay, more easily fatigued. For exercise she has been doing anything. Uses steps. No regular walks. Impediments to regular exercise she reports include hip and knee pain. She notes occasional mild right upper quadrant abdominal pain. Fast food consumption: none. Sugar sweetened beverage consumption: none. Current Outpatient Medications Medication Sig ??? ascorbic acid (VITAMIN C) 500 MG tablet Take 500 mg by mouth once daily ??? aspirin (ASPIRIN) 81 MG tablet Take 81 mg by mouth once daily ??? atenolol (TENORMIN) 50 MG tablet Take 50 mg by mouth once daily ??? Calcium Carbonate-Vitamin D (CALCIUM-CARB 600 + D PO) Take 1 tablet by mouth ??? calcium polycarbophil (FIBERCON) 625 MG tablet Take 625 mg by mouth ??? cholestyramine light (QUESTRAN LIGHT/PREVALITE) 4 g packet Take 4 g by mouth 2 times daily ??? cycloSPORINE (RESTASIS) 0.05 % ophthalmic suspension Instill 1 drop into both eyes 2 times daily ??? FLUTICASONE PROPIONATE, NASAL, NA [place] 2 sprays into the nose at bedtime ??? levothyroxine (SYNTHROID) 125 MCG tablet Take 125 mcg by mouth daily before breakfast ??? losartan (COZAAR) 25 MG tablet Take 25 mg by mouth at bedtime ??? losartan (COZAAR) 50 MG tablet Take 50 mg by mouth once daily ??? metFORMIN (GLUCOPHAGE) 500 MG tablet 500 mg 2 times daily with morning and evening meal ??? montelukast (SINGULAIR) 10 MG tablet Take 10 mg by mouth at bedtime ??? multivitamin (OPURITY) CHEW tablet take 1 tablet by oral route every day with food ??? omeprazole (PRILOSEC) 20 MG capsule Take 20 mg by mouth daily before breakfast No current facility-administered medications for this visit. I have reviewed with Ms. Erazo her Medical, Social and Family history and I have updated and corrected these sections of her [facility] electronic health record based on my discussions with her and/or her family members present at her visit today. She describes her current alcohol consumption as none. Social History Social History Narrative Lives with . Has 2 children and 2 grandchildren. 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 Review of systems: Chest pain: none. Shortness of breath: none. Dyspnea on exertion: stairs. Snoring at night: some per . Nausea and vomiting: none. Reflux or GERD symptoms: none. Constipation or diarrhea: diarrhea helped by cholestyramine. Adjusting dose to qod to avoid constipation. Pruritus: none or rare. Lots of dry skin/eyes. On exam today, she appeared alert and anicteric. I reviewed today's vital signs with the patient. Vitals: 11/13/19 0849 BP: 159/82 Pulse: 62 Resp: 18 Temp: 97.7 ??F (36.5 ??C) SpO2: 100% Weight: 69.8 kg (153 lb 12.8 oz) Height: 1.6 m (5' 3 ) Body mass index is 27.24 kg/m??. Wt Readings from Last 3 Encounters: 11/13/19 69.8 kg (153 lb 12.8 oz) 11/14/18 71.7 kg (158 lb) 03/14/18 72.6 kg (160 lb) Affect good. Seen with . Skin: no spider angiomata. Lungs were clear to auscultation bilaterally. Heart sounds were regular rate and rhythm. There were no murmurs. Abdomen was obese, soft and tender in the epigastrium. Liver edge palpable: no. Spleen palpable: no. Ascites: none. Hernias: none. Pretibial edema: none. Relevant test results: Recent Labs Component Name 11/13/19 0834 03/08/18 03/30/16 0853 10/01/14 1535 02/21/14 1247 03/16/13 1050 TBILI - - 1.0 1.3* 1.2 - 1.2 TBIL - 1.60* - - - - - ALKPHOS - 82 65 60 65 - 60 ALT - 71* 48* 65* 59* - 43 AST - 69* 41* 57* 52* - 37* ALB - 4.1 4.2 3.9 3.8 - 3.6 NA - - 137 141 143 - 142 SODIUM - 144 - - - - - POTASSIUM - 4.2 - 3.9 4.2 - - CO2 - 26 23 27 26 - 23 CREATININE - - 0.92 1.0 1.0 - 1.0 BUN - 17 15 19 22 - 22 HGB 12.9 12.6 13.1 14.0 13.5 - 12.8 WBC 3.0* 3.6* 4.1 5.9 6.2 - 5.4 PLTCOUNT 87* - - 169 161 - - PLT - 104* 131* - - - 165 INR 1.1 1.1 1.0 1.0 1.1 - 1.1 - = values in this interval not displayed. 03/22/19 EGD (Garcia): medium esophageal varices and moderate PHG, 5 mm biopsied 07/15/19 US: steatosis, no nodularity, patent vessels, no mention of focal lesions or ascites Assessment and Plan: 1. CYR cirrhosis 1. Remains well compensated. Elevated bili has been mainly unconjugated in the past so she likely has an element of Gilbert's contributing to her variable total bili elevations (of no consequence). 2. Up to date on imaging surveillance for hepatocellular carcinoma, will repeat in January and October locally. 3. She may have periodic ascites based on symptoms. Continue low sodium diet. 2. Esophageal varices 1. Will change atenolol to nadolol 40 mg daily to get the added benefit of reduced portal pressure in addition to the systemic antihypertensive effect. An appointment was scheduled for her to see me in followup in one year. Address letter to: Karin Cordoba, HEALTH SANITARIAN[employer]PL[employer] LEATHER MOSSER [address] [address] CC: Zechariah Garcia MD Orders Placed This Encounter ??? US ABDOMEN LIMITED ??? US ABDOMEN LIMITED ??? nadolol (CORGARD) 40 MG tablet US locally SALES AGENT documented in this encounter Plan of Treatment Upcoming Encounters Date Type Department Care Team (Late st Contact Info) Description 10/23/2024 10:00 AM TELESALES AGENT Office Visit [facility] - GI [address] [place] [place] [address], [place] [id number] Humphrey Esquivel MD [address] [place] [address] [place] [address] documented as of this encounter Goals Goal Patient Goal Type Associated Problems Recent Progress Patient-Stated? 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
--- OUTSIDE RECORDS SUMMARY | 2024-09-25 21:55 | XMS_ITS | Encounter Summary ---
Author Organization [facility] Address [address] [facility] [place] [address] Care Team Providers Care Health Diagnostics Teacher Name Role Phone Isreal Lin Primary Care Provider Reason for Visit * Reason Comments Cirrhosis Encounter Details Date Type Department Care Team (Late Contact Info) Description 11/08/2023 Telephone [facility] - [address] [address] Bre Reyes RN Cirrhosis Social History Tobacco Use Types Packs/Day Years [...] encounter Miscellaneous Notes * Telephone Encounter - Bre Reyes RN - 11/08/2023 11:33 AM CST Call received from pt to inquire about recent imaging from [facility]. Imaging reviewed. No further questions. Dr. Vanegas notified. ER CARRIER documented in this encounter Plan of Treatment Upcoming Encounters Date Type Department Care Team (Late Contact Info) Description 10/23/2024 10:00 AM POWDER CARRIER Office Visit [facility] - GI [address] [facility] [place], [place] [address] Humphrey Esquivel MD [address] [place] [address] [place] [address] documented as of this encounter Goals Goal Patient Goal Type Associated Problems Recent Progress Patient-Stated? Author Medication Management General On track( 024 9:45 AM POWDER CARRIER) Emre Broussard, RN Note: Expected end date: Interventions: Take all medications as prescribed Let your doctor know right away about any changes in your medications Make sure to request a refill of your medication at least one week prior to your last dose documented as of this encounter Visit Diagnoses Not on filedocumented in this encounter Care Teams Health Diagnostics Teacher Relationship Specialty Start Date End Date Isreal Lin [address] [place], [place] [id number] PCP - General Internal Medicine 10/25/23 documented as of this encounter
--- OUTSIDE RECORDS SUMMARY | 2024-09-25 21:55 | XMS_ITS | Encounter Summary ---
Author Organization [facility] Address [address] [facility] [place] [address] Care Team Providers Care Laborer Mine Name Role Phone Unavailable Primary Care Provider Unavailabl e Reason for Visit * Reason Comments Follow-up Encounter Details Date Type Department Care Team (Late Contact Info) Description 08/19/2020 Telephone [facility] - [address] [address] Yessi Carrillo RN Follow-up Social History Tobacco Use Types Packs/Day Years Used Date Smoking Tobacco: Never Smokeless Tobacco: Never Alcohol Use Standard Drinks/Week Comments No 0 (1 standard drink = 0.6 oz pur e alcohol) Sex and Gender Information Value Date Recorded Sex Assigned at Not on file Gender Identity Not on file Sexual Orientation Straight 08/11/2024 10 :05 AM CDT documented as of this encounter Progress Notes * Yessi Carrillo RN - 08/19/2020 9:42 AM CST Patient calls to let Dr. Vanegas know that her ultrasound from July at [facility] is being faxed to the office this morning. If there are any issues, please contact the patient at [phone]. NSED CUSTOMS BROKER documented in this encounter Plan of Treatment Upcoming Encounters Date Type Department Care Team (Late Contact Info) Description 10/23/2024 10:00 AM LICENSED CUSTOMS BROKER Office Visit [facility] - GI [address] [facility], [place] [address] Humphrey Esquivel MD [facility] DIV [place] [address] documented as of this encounter Goals Goal Patient Goal Type Associated Problems Recent Progress Patient-Stated? Author Medication Management General On track( 024 9:45 AM LICENSED CUSTOMS BROKER) Emre Broussard, RN Note: Expected end date: Interventions: Take all medications as prescribed Let your doctor know right away about any changes in your medications Make sure to request a refill of your medication at least one week prior to your last dose documented as of this encounter Visit Diagnoses Not on filedocumented in this encounter
--- OUTSIDE RECORDS SUMMARY | 2024-09-25 21:55 | XMS_ITS | Encounter Summary ---
Author Organization [facility] Address [address] [facility] [place] [address] Care Team Providers Care Sorting Cows Worker Name Role Phone Unavailable Primary Care Provider Unavailabl e Encounter Details Date Type Department Care Team (Latest Contact Info) Description 11/18/2020 12:05 PM FUR CUTTING MACHINE OPERATOR - 11/18/2020 11:59 PM FUR CUTTING MACHINE OPERATOR Hospital Encounter [facility] OP DRAW STATION [address] [place] [phone] Karin Cordoba APRN-CNP [address] [phone] Discharge Disposition: Home or Self Care Social History Tobacco Use Types Packs/Day Years Used Date Smoking Tobacco: Never Smokeless Tobacco: Never Alcohol Use Standard Drinks/Week Comments No 0 (1 standard drink = 0.6 oz pur e alcohol) Sex and Gender Information Value Date Recorded Sex Assigned at Not on file Gender Identity Not on file Sexual Orientation Straight 08/11/2024 10 :05 AM CDT COVID-19 Exposure Response Date Recorded In the last month, have you been in contact with someone who was confirmed or suspected to have Coronavirus / COVID-19? No / Unsure 11/18/2020 12:03 PM FUR CUTTING MACHINE OPERATOR documented as of this encounter Medications at Time of Discharge Medication Sig Dispensed Refills Start Date End Date ascorbic acid (VITAMIN C) 500 MG tablet Take 1 (one) tablet by mouth once daily aspirin (ASPIRIN) 81 MG tablet Take 1 (one) tablet by mouth once daily Calcium Carbonate-Vitamin D (CALCIUM-CARB 600 + D PO) Take 1 tablet by mouth cycloSPORINE (RESTASIS) 0.05 % ophthalmic suspension Instill 1 (one) drop into both eyes 2 times daily levothyroxine (SYNTHROID) 125 MCG tablet Take 100 mcg by mouth daily before breakfast losartan (COZAAR) 25 MG tablet Take 1 (one) tablet by mouth at bedtime losartan (COZAAR) 50 MG tablet Take 1 (one) tablet by mouth once daily 01/28/2018 metFORMIN (GLUCOPHAGE) 500 MG tablet 1 (one) tablet 2 times daily with morning and evening meal 02/19/2015 montelukast (Singulair) 10 MG tablet Take 1 (one) tablet by mouth at bedtime multivitamin (OPURITY) CHEW tablet take 1 tablet by oral route every day with food 05/13/2015 omeprazole (PRILOSEC) 20 MG capsule Take 1 (one) capsule by mouth daily before breakfast calcium polycarbophil (FIBERCON) 625 MG tablet Take 625 mg by mouth 11/17/2021 cholestyramine light (QUESTRAN LIGHT/PREVALITE) 4 g packet Take 4 g by mouth 2 times daily 11/17/2021 FLUTICASONE PROPIONATE, NASAL, NA [place] 2 sprays into the nose at bedtime 11/17/2021 nadolol (CORGARD) 40 MG tablet Take 1 tablet by mouth once daily 90 tablet 11/18/2020 02/17/2021 documented as of this encounter Plan of Treatment Upcoming Encounters Date Type Department Care Team (Late st Contact Info) Description 10/23/2024 10:00 AM FUR CUTTING MACHINE OPERATOR Office Visit [facility] [place] [address] [place] [address], [place] [address] Humphrey Esquivel MD [address] [place] [address] [place] [address] documented as of this encounter Goals Goal Patient Goal Type Associated Problems Recent Progress Patient-Stated? 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) ALPHA FETOPROTEIN BLOOD TUMOR MARKER Routine 11/18/2020 12:29 PM FUR CUTTING MACHINE OPERATOR 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) CBC W AUTO DIFFERENTIAL Routine 11/18/2020 12:29 PM FUR CUTTING MACHINE OPERATOR 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 Results are not comparable across different methods. AFP values obtained by [facility] using an Blum Alinity Immunoassay. Blood BLOOD SPECIMEN / Unknown Lab Venipuncture / Unknown 11/18/2020 12:29 PM FUR CUTTING MACHINE OPERATOR 11/18/2020 12:51 PM FUR CUTTING MACHINE OPERATOR Humphrey Esquivel MD LAB - CHEM ISTRY ORDERABLES [facility] [address] [place] [phone], [facility] [phone] * (ABNORMAL) BILIRUBIN DIRECT (11/18/2020 12:29 PM FUR CUTTING MACHINE OPERATOR) Bilirubin Conjugated 0.6(H) 0.0 - 0.5 mg/dL 11/18/2020 1:16 PM [facility] Blood BLOOD SPECIMEN / Unknown Lab Venipuncture / Unknown 11/18/2020 12:29 PM FUR CUTTING MACHINE OPERATOR 11/18/2020 12:50 PM FUR CUTTING MACHINE OPERATOR Humphrey Esquivel MD LAB - CHEM ISTRY ORDERABLES Performing Organization Address [facility] Co de Phone Number [address] [address], [facility] [phone] * PT-INR [facility] (11/18/2020 12:29 PM FUR CUTTING MACHINE OPERATOR) PT 14.3 12.1 - 14.8 Seconds 11/18/2020 1:05 PM [facility] INR 1.1 See Comment 11/18/2020 1:05 PM [facility] Comment:The suggested therap eutic range for standard coumadin (warfarin) therapy is an INR of 2.0-3.0. For high-risk patients (Mechanical Mitral Valve Prosthesis, etc.), the suggested prophylactic therapeutic range is an INR of 2.5-3.5. Blood BLOOD SPECIMEN / Unknown Lab Venipuncture / Unknown 11/18/2020 12:29 PM FUR CUTTING MACHINE OPERATOR 11/18/2020 12:57 PM FUR CUTTING MACHINE OPERATOR Humphrey Esquivel MD LAB - COAG ULATION ORDERABLES Performing Organization Address [facility]/ZIP Co de Phone Number [address] [phone], [facility] [phone] * (ABNORMAL) COMPREHENSIVE METABOLIC PANEL (11/18/2020 12:29 PM FUR CUTTING MACHINE OPERATOR) BUN 15 7 - 26 mg/dL 11/18/2020 1:16 PM [facility] Creatinine 0.8 0.6 - 1.2 mg/dL 11/18/2020 1:16 PM [facility] Sodium 143 136 - 145 mmol/L 11/18/2020 1:16 PM [facility] Potassium 3.8 3.5 - 4.5 mmol/L 11/18/2020 1:16 PM [facility] Chloride 105 98 - 107 mmol/L 11/18/2020 1:16 PM [facility] CO2 28 22 - 29 mmol/L 11/18/2020 1:16 PM [facility] Glucose 127(H) 70 - 115 mg/dL 11/18/2020 1:16 PM [facility] Calcium 9.1 8.4 - 10.2 mg/dL 11/18/2020 1:16 PM [facility] Protein Total 6.5 6.0 - 8.3 g/dL 11/18/2020 1:16 PM [facility] Albumin 3.5 3.4 - 5.0 g/dL 11/18/2020 1:16 PM [facility] Bilirubin Total 1.7(H) 0.2 - 1.2 mg/dL 11/18/2020 1:16 PM [facility] Alkaline Phosphatase 71 40 - 150 Units/L 11/18/2020 1:16 PM [facility] ALT 31 0 - 55 Units/L 11/18/2020 1:16 PM [facility] AST 38(H) 5 - 34 Units/L 11/18/2020 1:16 PM [facility] Anion Gap 14 8 - 18 11/18/2020 1:16 PM [facility] BUN/Creatinine Ratio 19 7 - 23 11/18/2020 1:16 PM [facility] Osmolality Calculated 298 270 - 300 mOsm/kg 11/18/2020 1:16 PM [facility] Albumin/Globulin Ratio 1.2 1.1 - 2.3 11/18/2020 1:16 PM [facility] eGFR >60 >60 mL/min/1.7 3 m2 11/18/2020 1:16 PM [facility] Blood BLOOD SPECIMEN / Unknown Lab Venipuncture / Unknown 11/18/2020 12:29 PM FUR CUTTING MACHINE OPERATOR 11/18/2020 12:50 PM FUR CUTTING MACHINE OPERATOR Humphrey Esquivel MD LAB - CHEM ISTRY ORDERABLES [facility] [address] [place] [address], [facility] [phone] * (ABNORMAL) CBC WITH DIFFERENTIAL (11/18/2020 12:29 PM [facility]) WBC 3.3(L) 3.5 - 10.5 10? 3 /uL 11/18/2020 1:09 PM [facility] RBC 3.82(L) 3.90 - 5.00 10? 6 /uL 11/18/2020 1:09 PM [facility] Hemoglobin 11.8(L) 12.0 - 15.5 g/dL 11/18/2020 1:09 PM [facility] Hematocrit 35.5 35.0 - 45.0 % 11/18/2020 1:09 PM [facility] MCV 92.9 81.0 - 97.0 fL 11/18/2020 1:09 PM [facility] MCH 30.9 28.0 - 34.0 pg 11/18/2020 1:09 PM [facility] MCHC 33.2 32.0 - 36.0 g/dL 11/18/2020 1:09 PM [facility] Platelet Count 81(L) 150 - 400 10? 3 /uL 11/18/2020 1:09 PM [facility] Comment:Checked with the pre vious result. RDW-SD 46.2 36.0 - 50.0 fL 11/18/2020 1:09 PM [facility] RDW-CV 13.6 11.2 - 14.8 % 11/18/2020 1:09 PM [facility] MPV 11.4 9.3 - 12.8 fL 11/18/2020 1:09 PM [facility] nRBC Absolute 0.00 0 10? 3 /uL 11/18/2020 1:09 PM [facility] nRBC Auto 0.0 0 /100 WBC 11/18/2020 1:09 PM [facility] Neutrophils % 58.0 35.0 - 70.0 % 11/18/2020 1:09 PM [facility] Lymphocytes % 29.7 19.7 - 55.1 % 11/18/2020 1:09 PM [facility] Monocytes % 8.7 3.0 - 15.0 % 11/18/2020 1:09 PM [facility] Eosinophils % 2.7 0.0 - 6.0 % 11/18/2020 1:09 PM [facility] Basophil % 0.6 0.0 - 1.5 % 11/18/2020 1:09 PM [facility] Neutrophils Absolute 1.9 1.6 - 7.0 10? 3 /uL 11/18/2020 1:09 PM [facility] Lymphocyte Absolute 1.0 0.8 - 2.9 10? 3 /uL 11/18/2020 1:09 PM [facility] Monocytes Absolute 0.29 0.14 - 0.66 10? 3 /uL 11/18/2020 1:09 PM [facility] Eosinophils Absolute 0.09 0.00 - 0.45 10? 3 /uL 11/18/2020 1:09 PM [facility] Basophils Absolute 0.02 0.00 - 0.06 10? 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
--- OUTSIDE RECORDS SUMMARY | 2024-09-25 21:55 | XMS_ITS | Encounter Summary ---
Author Organization [facility] Address [address] [facility] [place] [address] Care Team Providers Care Team Sports Sales Associate Name Role Phone Unavailable Primary Care Provider Unavailabl e Reason for Visit * Reason Comments Refill Request Encounter Details Date Type Department Care Team (Late Contact Info) Description 05/18/2022 Refill [facility] [place] [address] [place] [phone] Humphrey Esquivel MD [address] [place] [address] [address] [place] [address] Refill Request Social History Tobacco Use Types Packs/Day Years [...] (Late Contact Info) Description 10/23/2024 10:00 AM MEDICAL DOCTOR NUCLEAR MEDICINE Office Visit [facility] [address] [place] [phone] Humphrey Esquivel MD [address] [place] [address] [address] [place] [address] documented as of this encounter Goals Goal Patient Goal Type Associated Problems Recent Progress Patient-Stated? Author Medication Management General On track( 024 9:45 AM MEDICAL DOCTOR NUCLEAR MEDICINE) Emre Broussard, RN Note: Expected end date: Interventions: Take all medications as prescribed Let your doctor know right away about any changes in your medications Make sure to request a refill of your medication at least one week prior to your last dose documented as of this encounter Visit Diagnoses Not on filedocumented in this encounter
--- OUTSIDE RECORDS SUMMARY | 2024-09-25 21:55 | XMS_ITS | Clinical Summary ---
Author Organization [facility] Address [address] [place] [address] Care Team Providers Care Director Of Advertising Sales Name Role Phone Riley Isreal Primary Care Provider [phone] Source Comments [facility],non-owned Affiliates and Associated Physician Practices is amultiple site organization consisting of ambulatory clinics and hospital sitesin [place], [place], [place] and [place]. This disclosure is being madepursuant to the Care Everywhere program and may not contain all information available regarding this patient. Last updated 18.[facility] Allergies Active Allergy Reactions Criticality Noted Date Comments Adhesive Sensitivity Other 11/17/2021 Allergy Urticaria Medium 03/16/2013 Codeine Other Low 04/21/2012 Acute abd. pain, Acute abd. pain, Acute abd. pain Ezetimibe Other Medium 09/11/2019 Hmg-Coa-R Inhibitors Other Loratadine-Pseudoephedrine Other 2 Simvastatin Myalgias Medium 09/11/2019 Medications * Be aware that medications may not be up to date on this document. Alwaysverify current medications with the patient. Medication Sig Dispensed Refills Start Date End Date Status losartan (COZAAR) 50 MG tablet Take 1 (one) tablet by mouth once daily 01/28/2018 Active metFORMIN (GLUCOPHAGE) 500 MG tablet 1 (one) tablet 2 times daily with morning and evening meal 02/19/2015 Active Calcium Carbonate-Vitamin D (CALCIUM-CARB 600 + D PO) Take 1 tablet by mouth Active multivitamin (OPURITY) CHEW tablet take 1 tablet by oral route every day with food 05/13/2015 Active aspirin (ASPIRIN) 81 MG tablet Take 1 (one) tablet by mouth once daily Active cycloSPORINE (RESTASIS) 0.05 % ophthalmic suspension Instill 1 (one) drop into both eyes 2 times daily Active levothyroxine (SYNTHROID) 125 MCG tablet Take 100 mcg by mouth daily before breakfast Active losartan (COZAAR) 25 MG tablet Take 1 (one) tablet by mouth at bedtime Active montelukast (Singulair) 10 MG tablet Take 1 (one) tablet by mouth at bedtime Active ascorbic acid (VITAMIN C) 500 MG tablet Take 1 (one) tablet by mouth once daily Active omeprazole (PRILOSEC) 20 MG capsule Take 1 (one) capsule by mouth daily before breakfast Active Pediatric Eviuuvwl-Hgyszsvh-K (COMPLETE MULTI-VITAMIN PO) Take by mouth once daily Active ferrous sulfate 325 (65 FE) MG tablet Take 1 (one) tablet by mouth every 2 days Active nadolol (Corgard) 40 MG tablet Take 1 tablet by mouth once daily 90 tablet 07/26/2024 Active spironolactone (Aldactone) 50 MG tablet Take 1 (one) tablet by mouth once daily 30 tablet 5 08/14/2024 Active furosemide (Lasix) 20 MG tablet Take 1 (one) tablet by mouth once daily 30 tablet 5 08/14/2024 Active Active Problems Problem Noted Date Diagnosed Date Ascites 08/14/2024 Overview (08/14/2024): Noted to be increased on Aug 2024 US (but not report on prior US) on no diuretics --> furosemide 20/d and spironolactone 50/d, BMP in 2 weeks Breast cancer 07/28/2024 Overview (07/28/2024): T1 N0 M0 stage IA invasive ductal carcinoma of the right breast status post ultrasound-guided biopsy of the right breast 6 o'clock position mass done on May 17, 2024 came back positive for invasive ductal carcinoma ER/NE positive HER2/duncan negative and Ki-67 of 10%. Status post right-sided lumpectomy done on June 28, 2024. Pathology showed invasive ductal carcinoma 0.5 cm with negative margins. Hyperlipidemia 11/13/2019 Esophageal varices 04/24/2019 Overview (04/24/2019): 03/22/19 EGD ([facility]): moderate esophageal varices, 5 mm biopsied Hypertension 03/13/2018 Gilbert's syndrome 03/13/2018 Overview (03/13/2018): Direct bili usually 0.5 Osteoarthritis 04/06/2016 Overview (01/10/2018): Left hip 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 No biopsy. 09/20/12 US ([place]): fatty liver, no focal lesions 05/08/13 EGD (Dr. Garcia): no varices or PHG, did dilatation because of possible dysphagia 10/2013 US no focal lesions 10/24/14 Fibroscan: 18.5 kPa 05/10/15 US: no surface nodularity, echogenic parenchyma consistent with diffuse steatosis 03/29/16 US: normal liver contour, heterogeneous parenchyma, no focal lesions, patent vessels, no mention of ascites 04/06/17 US: mildly nodular liver, steatosis, no focal lesions, no mention of ascites, nurse dwp 03/18/18 US: steatosis and nodularity, no mention of focal lesions or ascites, nurse dwp 09/27/18 US: steatosis and nodularity, no mention of focal lesions or ascites, nurse dwp 07/15/19 US: steatosis, no nodularity, patent vessels, no mention of focal lesions or ascites nurse dwp 02/08/20 US: steatosis, nodular liver, patent vessels, no mention of focal lesions or ascites nurse dwp 07/23/20 US: nodular liver, no focal lesions, no mention of ascites mcm 01/13/21 US: nodular liver, no focal lesions, no mention of ascites mcm 07/15/21 US: small nodular liver, no focal lesions, no mention of ascites mcm 02/03/22 US: nodular liver, no focal lesions, no ascites mcm 07/24/22 US: nodular liver, no focal lesions, patent vessels, no mention of ascites mcm 08/05/23 US: nodular liver, no mention of focal lesions, patent PV, trace ascites 10/26/23 US: echogenic liver, no focal lesions, patent vessels, trace ascites ndwp 06/06/24 US: nodular liver, no focal lesions, patent PV, no mention of ascites 08/05/24 US ([facility]): nodular liver, patent PV but flow suggests worsened portal hypertension, increased perihepatic fluid Colon adenomas 10/01/2014 Overview (09/16/2022): 02/14/13 colonoscopy (Dr. Garcia): 2 adenomas removed 02/15/18 colonoscopy (Dr. Garcia): 3 polyps removed 09/10/22 colonoscopy (Dr. Garcia): one 2 cm rectal polyp removed Hypothyroidism 09/30/2014 Overview (07/28/2024): T1 N0 M0 stage IA invasive ductal carcinoma of the right breast status post ultrasound-guided biopsy of the right breast 6 o'clock position mass done on May 17, 2024 came back positive for invasive ductal carcinoma ER/NE positive HER2/duncan negative and Ki-67 of 10%. Status post right-sided lumpectomy done on June 28, 2024. Pathology showed invasive ductal carcinoma 0.5 cm with negative margins. Type 2 diabetes mellitus 04/21/2012 Encounters Date Type Department Care Team Description 09/13/2024 Lab Requisition [facility] - DermPath Lab [address] [place] [phone] Darcie Hernandez DO 08/14/2024 Telephone [facility] - GI [address] [place] [phone] Humphrey Esquivel MD Results (US) 07/26/2024 Refill [facility] - GI [address] [place] [phone] Humphrey Esquivel MD Refill Request from Last 3 Months Immunizations Name Administration Dates Next Due TDAP (7yrs+) 10/11/2010 Family History Medical History Relation Name Comments Cancer Brother 1 Unknown kind; S tatus: Alive Diabetes Brother 2 None Known Brother 3 Status: Alive Hypertension Father Status: d CVA Mother Diabetes Mother Status: Alive None Known Sister Status: Alive Relation Name Status Comments Brother 1 Brother 2 Brother 3 Father Mother Sister Social History Tobacco Use Types Packs/Day Years Used Date Smoking Tobacco: Never Smokeless Tobacco: Never Tobacco Cessation:Counseling Given: Not Answered Alcohol Use Standard Drinks/Week Comments No 0 (1 standard drink = 0.6 oz pur e alcohol) Sex and Gender Information Value Date Recorded Sex Assigned at Not on file Gender Identity Not on file Sexual Orientation Straight 08/11/2024 10 :05 AM CDT Last Filed Vital Signs Vital Sign Reading Time Taken Comments Blood Pressure 151/69 10/25/2023 9:34 AM DISABILITY HEARING OFFICER Pulse 79 10/25/2023 9:34 AM DISABILITY HEARING OFFICER Temperature 36.4 ??C (97.6 ??F) 10/25/2023 9:34 AM CS T Respiratory Rate 14 10/25/2023 9:34 AM DISABILITY HEARING OFFICER Oxygen Saturation 100% 10/25/2023 9:34 AM DISABILITY HEARING OFFICER Inhaled Oxygen Concentration - - Weight 68 kg (150 lb) 10/25/2023 9:34 AM DISABILITY HEARING OFFICER Height 160 cm (5' 2.99 ) 10/25/2023 9:34 AM DISABILITY HEARING OFFICER Body Mass Index 26.58 10/25/2023 9:34 AM DISABILITY HEARING OFFICER Plan of Treatment Upcoming Encounters Date Type Department Care Team (Late st Contact Info) Description 10/23/2024 10:00 AM DISABILITY HEARING OFFICER Office Visit [facility] - GI [address] [facility], [place] [phone] Humphrey Esquivel MD [address] [place] [address] DIV [place] [address] Health Maintenance Due Date Last Done Comments BONE DENSITY TESTING 1941 MEDICARE AWV ? 12 MONTHS 1941 PNEUMOCOCCAL VACCINE 65+ (1 of 2 - PCV) 1947 DIABETES-STATIN 1981 ZOSTER VACCINE (1 of 2) 1991 HEPATITIS B VACCINE (1 of 3 - Risk 3-dose series) 2001 Respiratory Syncytial Virus (RSV) Vaccine Pt: or over 60 yrs (1 - 1-dose 75+ series) 2016 DIABETES RETINOPATHY SCREENING 10/19/2019 DIABETES-FOOT EXAM WITH MONOFILAMENT 10/19/2019 DTAP/TDAP/TD VACCINES (2 - Td or Tdap) 10/11/2020 10/11/2010 DIABETES-HGB A1C 02/24/2021 08/27/2020, 03/2013, 09/15/2012 DIABETES-NEPHROPATHY 08/27/2021 08/27/2020 DEPRESSION SCREENING 10/11/2023 COVID-19 VACCINE ( season) 2024 INFLUENZA VACCINE (#1) 2024 DIABETES-SERUM CREATININE 10/25/20242023, 04/12/2023, 11/02/2022, Additional history exists HIB VACCINE Aged Out No longer eligi ble based on patient's age to complete this topic HPV VACCINE Aged Out No longer eligi ble based on patient's age to complete this topic MENINGOCOCCAL VACCINE Aged Out No sangita yu eligible based on patient's age to complete this topic Goals Goal Patient Goal Type Associated Problems Recent Progress Patient-Stated? Author Medication Management General On track( 024 9:45 AM DISABILITY HEARING OFFICER) No Emre Paez, RN Note: Expected end date: Interventions: Take all medications as prescribed Let your doctor know right away about any changes in your medications Make sure to request a refill of your medication at least one week prior to your last dose Procedures Procedure Name Priority Date/Time Associated Diagnosis Comments DERMATOPATHOLOGY Routine 09/13/2024 9:03 AM DISABILITY HEARING OFFICER IMAGING/RADIOLOGY/XRAY RESULTS ORDER 08/05/2024 COMPREHENSIVE METABOLIC PANEL Routine 10/25/2023 11:42 AM DISABILITY HEARING OFFICER Liver cirrhosis secondary to MASH MICROALB/CREAT RATIO URINE (EXTERNAL RESULT ENTRY) Routine 08/27/2020 HEMOGLOBIN A1C (EXTERNAL RESULT ENTRY) Routine 08/27/2020 from Last 3 Months or Most Recently Relevant to Health Maintenance Results * DERMATOPATHOLOGY (09/13/2024 9:03 AM DISABILITY HEARING OFFICER) Case Report Dermatopathology Report ? Case: [id number] ? Authorizing Provider: ??Darcie Hernandez, DO ?? Collected: ? 09/13/2024 09:03 AM ? Ordering Location: ? [facility] - ??Received: ?09/13/2024 04:19 PM ? DermPath Lab ? Pathologist: ? Any Brown MD ? Specimen: ?Skin, right superior shoulder ? 4 4:05 PM DISABILITY HEARING OFFICER DERMATOPATHOLOGY LABORATORY Final Diagnosis Specimen A. SKIN, right superior shoulder: BENIGN VERRUCOUS KERATOSIS, INFLAMED (L82.1) 4 4:05 PM [facility] DERMATOPATHOLOGY LABORATORY Clinical History R/O NMSC 4 4:05 PM [facility] DERMATOPATHOLOGY LABORATORY Gross Description Specimen A: Received is one formalin filled container labeled with the patient's name and designated right superior shoulder. The specimen consists of a shave biopsy measuring 4x4x4 mm. Jar 0. 4 4:05 PM [facility] DERMATOPATHOLOGY LABORATORY Microscopic Description Specimen A. SKIN, right superior shoulder: Sections show hyperkeratosis, papillomatosis, hypergranulosis, and acanthosis. Inflammatory cells are present within the dermis. These histological findings can be seen in a verruca vulgaris or a seborrheic keratosis. 4 4:05 PM [facility] DERMATOPATHOLOGY LABORATORY Disclaimer An external and internal positive and negative controls are appropriate for the histochemical, immunohistochemical and immunofluorescence stain(s) in this case (if any), except where stated explicitly. The performance characteristics of the stain(s) cited in this report were developed and its performance characteristic determined by the Dermatopathology Laboratory at [facility], directed by Dr. Javier Carias. These tests need not be, and therefore are not, approved by the [place] Food and Drug Administration. The tests are used for clinical purposes. Billing Codes Specimen Charges Stain Charges 16686 1 4 4:05 PM [facility] DERMATOPATHOLOGY LABORATORY Embedded Images 4 4:05 PM [facility] DERMATOPATHOLOGY LABORATORY Pathology/Cytolo gy TISSUE SPECIMEN FROM SKIN / Unknown 09/13/2024 9:03 AM DISABILITY HEARING OFFICER 09/13/2024 4:19 PM DISABILITY HEARING OFFICER Darcie Hernandez DO LAB - PATHOLOGY/C YTOLOGY ORDERABLES DERMATOPATHOLOGY LABORATORY [facility] - Department of Dermatology [address], [address] [phone] * IMAGING RADIOLOGY XRAY RESULTS ORDER (08/05/2024) Anatomical Region Laterality Modality Other 08/05/2024 Narrative 08/05/2024 Ordered by an unspecified provider. Scanned Document IMAGING * (ABNORMAL) COMPREHENSIVE METABOLIC PANEL (10/25/2023 11:42 AM [facility]) BUN 12 7 - 26 mg/dL 10/25/2023 12:31 PM [facility] Creatinine 0.74 0.56 - 0.96 mg/dL 10/25/2023 12:31 PM [facility] Sodium 144 136 - 145 mmol/L 10/25/2023 12:31 PM [facility] Potassium 4.1 3.5 - 4.5 mmol/L 10/25/2023 12:31 PM [facility] Chloride 108(H) 98 - 107 mmol/L 10/25/2023 12:31 PM [facility] CO2 27 22 - 29 mmol/L 10/25/2023 12:31 PM [facility] Glucose 130(H) 70 - 115 mg/dL 10/25/2023 12:31 PM [facility] Calcium 8.9 8.4 - 10.2 mg/dL 10/25/2023 12:31 PM [facility] Protein Total 6.8 6.0 - 8.3 g/dL 10/25/2023 12:31 PM [facility] Albumin 3.4 3.4 - 5.0 g/dL 10/25/2023 12:31 PM [facility] Bilirubin Total 2.1(H) 0.2 - 1.2 mg/dL 10/25/2023 12:31 PM [facility] Alkaline Phosphatase 88 40 - 150 U/L 10/25/2023 12:31 PM [facility] ALT 33 5 - 55 U/L 10/25/2023 12:31 PM [facility] AST 46(H) 5 - 34 U/L 10/25/2023 12:31 PM [facility] Anion Gap 9 6 - 16 10/25/2023 12:31 PM [facility] BUN/Creatinine Ratio 16 7 - 23 10/25/2023 12:31 PM [facility] Osmolality Calculated 300(H) 275 - 295 mOsm/kg 10/25/2023 12:31 PM [facility] Albumin/Globulin Ratio 1.0(L) 1.1 - 2.3 10/25/2023 12:31 PM [facility] eGFR by CKD-EPI 81(L) >=90 mL/min/1.7 3 m2 10/25/2023 12:31 PM [facility] Blood BLOOD SPECIMEN / Unknown Lab Venipuncture / Unknown 10/25/2023 11:42 AM DISABILITY HEARING OFFICER 10/25/2023 12:01 PM DISABILITY HEARING OFFICER Humphrey Esquivel MD LAB - CHEM ISTRY ORDERABLES [facility] [address] [place] [address], [facility] [phone] * MICROALB/CREAT RATIO URINE (EXTERNAL RESULT ENTRY) (08/27/2020) Microalb/Creat Ratio (EXTERNAL RESULT) 0 0 - 29 mg/g Urine URINE / Unknown 08/27/2020 Historical Provider LAB - URINE CHEMI STRY ORDERABLES * (ABNORMAL) HEMOGLOBIN A1C (EXTERNAL RESULT ENTRY) (08/27/2020) Hemoglobin A1c (EXTERNAL RESULT) 6.9(A) 4.0 - 6.0 % Blood BLOOD SPECIMEN / Unknown 08/27/2020 Historical Provider LAB - CHEMISTRY O RDERABLES from Last 3 Months or Most Recently Relevant to Health Maintenance Care Teams Director Of Advertising Sales Relationship Specialty Start Date End Date Isreal Lin [address] [place] [address] PCP - General Internal Medicine 10/25/23
--- OUTSIDE RECORDS SUMMARY | 2024-09-25 21:55 | XMS_ITS | Encounter Summary ---
Author Organization [facility] Address [address] [facility] [place] [address] Care Team Providers Care Lease Out Man Name Role Phone Unavailable Primary Care Provider Unavailabl e Reason for Visit * Reason Onset Date Comments LABS ONLY 11/14/2021 Encounter Details Date Type Department Care Team (Late st Contact Info) Description 11/14/2021 Telephone [facility] - [address] [place] [address] Andrew Casper, RN LABS ONLY Social History Tobacco Use Types Packs/Day Years [...] encounter Miscellaneous Notes * Telephone Encounter - Emre Paez RN - 11/14/2021 11:15 AM GENETICIST MCM sent to pt TICIST * Telephone Encounter - Andrew Casper RN - 11/14/2021 10:41 AM CST Patient called triage asking if we have received labs from [facility] for orders placed on 11.07.21. Nothing in media. TICIST documented in this encounter Plan of Treatment Upcoming Encounters Date Type Department Care Team (Late st Contact Info) Description 10/23/2024 10:00 AM GENETICIST Office Visit [facility] - GI [address] [place] [address], [place] [address] Humphrey Esquivel MD [address] [place] [address] [place] [address] documented as of this encounter Goals Goal Patient Goal Type Associated Problems Recent Progress Patient-Stated? Author Medication Management General On track( 024 9:45 AM GENETICIST) Emre Broussard, RN Note: Expected end date: Interventions: Take all medications as prescribed Let your doctor know right away about any changes in your medications Make sure to request a refill of your medication at least one week prior to your last dose documented as of this encounter Visit Diagnoses Not on filedocumented in this encounter
--- OUTSIDE RECORDS SUMMARY | 2024-09-25 21:55 | XMS_ITS | Encounter Summary ---
Author Organization [facility] Address [address] [place] [address] Care Team Providers Care Altitude Chamber Technician Name Role Phone Chad Linin Primary Care Provider [phone] Reason for Visit * Reason Onset Date Comments Results 08/14/2024 US Encounter Details Date Type Department Care Team (Late st Contact Info) Description 08/14/2024 Telephone [facility] [place] [address] [place] [address], [facility] [place] [place] [address] Humphrey Esquivel MD [address] [place] [address] [place] [address] Results (US) Social History Tobacco Use Types Packs/Day Years [...] encounter Miscellaneous Notes * Telephone Encounter - Humphrey Esquivel MD - 08/14/2024 12:56 PM CST I called Ms. Maggie Erazo to discuss her recent liver US and complaints of increased abdominal girth. The US noted increased ascites although it had not been noted before. She has been avoiding excess salt. The plan is to start furosemide 20/d and spironolactone 50/d. She is on an ARB, and her creatinine and K are normal. Will recheck locally in 2 weeks. Humphrey Vanegas MD 08/14/2024, 12:56 PM Orders Placed This Encounter BASIC METABOLIC PANEL (CALCIUM TOTAL) spironolactone (Aldactone) 50 MG tablet furosemide (Lasix) 20 MG tablet Labs at [facility] lab LE MACHINE TENDER documented in this encounter Plan of Treatment Upcoming Encounters Date Type Department Care Team (Late st Contact Info) Description 10/23/2024 10:00 AM MARBLE MACHINE TENDER Office Visit [facility] - GI [address] [place] [address], [place] [address] Humphrey Esquivel MD [address] [place] [address] [place] [address] Scheduled Orders Name Type Priority Associated Diagnoses Orde r Schedule BASIC METABOLIC PANEL (CALCI UM TOTAL) Lab Routine Ascites Ordered: 08/14/2024 documented as of this encounter Goals Goal Patient Goal Type Associated Problems Recent Progress Patient-Stated? Author Medication Management General On track( 024 9:45 AM MARBLE MACHINE TENDER) Emre Broussard, RN Note: Expected end date: Interventions: Take all medications as prescribed Let your doctor know right away about any changes in your medications Make sure to request a refill of your medication at least one week prior to your last dose documented as of this encounter Visit Diagnoses Diagnosis Ascites- Primary Other ascites documented in this encounter Care Teams Altitude Chamber Technician Relationship Specialty Start Date End Date Isreal Lin [address] [place] [address] PCP - General Internal Medicine 10/25/23 documented as of this encounter
--- OUTSIDE RECORDS SUMMARY | 2024-09-25 21:55 | XMS_ITS | Encounter Summary ---
Author Organization [facility] Address [address] [facility] [place] [address] Care Team Providers Care Fire Alarm Mechanic Name Role Phone Isreal Lin Primary Care Provider [phone] Encounter Details Date Type Department Care Team (Latest Contact Info) Description 10/25/2023 10:50 AM HOME VISITS NURSE - 10/25/2023 11:59 PM [facility] Hospital Encounter [facility] OP DRAW STATION [address] [place] [phone] Karin Cordoba APRN-HILARIO [address] [address] Discharge Disposition: Home or Self Care Social [...] AM CDT documented as of this encounter Medications at [...] drop into both eyes 2 times daily ferrous sulfate 325 (65 FE) MG tablet Take 1 (one) tablet by mouth every 2 days levothyroxine (SYNTHROID) 125 MCG tablet Take 100 [...] (one) capsule by mouth daily before breakfast Pediatric Ykomuscw-Plmxreiz-Z (COMPLETE MULTI-VITAMIN PO) Take by mouth once daily nadolol (Corgard) 40 MG tablet Take 1 tablet by mouth once daily 90 tablet 2 08/09/2023 04/30/2024 documented as of this encounter Plan of Treatment Upcoming Encounters Date Type Department Care Team (Late st Contact Info) Description 10/23/2024 10:00 AM HOME VISITS NURSE Office Visit [facility] - GI [address] [place] [address], [place] [address] Humphrey Esquivel MD [address] [address] [place] [address] documented as of this encounter Goals Goal Patient Goal Type Associated Problems Recent Progress Patient-Stated? Author Medication Management General On track( 024 9:45 AM HOME VISITS NURSE) Emre Broussard, RN Note: Expected end date: Interventions: Take all medications as prescribed Let your doctor know right away about any changes in your medications Make sure to request a refill of your medication at least one week prior to your last dose documented as of this encounter Procedures Procedure Name Priority Date/Time Associated Diagnosis Comments PT-INR [facility] Routine 10/25/2023 11:42 AM HOME VISITS NURSE Liver cirrhosis secondary to MASH TRANSFERRIN Routine 10/25/2023 11:42 AM HOME VISITS NURSE Liver cirrhosis secondary to MASH ALPHA FETOPROTEIN BLOOD TUMOR MARKER Routine 10/25/2023 11:42 AM HOME VISITS NURSE Liver cirrhosis secondary to MASH CBC W AUTO DIFFERENTIAL Routine 10/25/2023 11:42 AM HOME VISITS NURSE Liver cirrhosis secondary to MASH COMPREHENSIVE METABOLIC PANEL Routine 10/25/2023 11:42 AM HOME VISITS NURSE Liver cirrhosis secondary to MASH IRON BLOOD Routine 10/25/2023 11:42 AM HOME VISITS NURSE Liver cirrhosis secondary to MASH BILIRUBIN DIRECT Routine 10/25/2023 11:4 2 AM HOME VISITS NURSE Liver cirrhosis secondary to MASH documented in this encounter Results * IRON BLOOD (10/25/2023 11:42 AM HOME VISITS NURSE) Iron 86 40 - 150 ug/dL 10/25/2023 12:33 PM HOME VISITS NURSE [facility] Blood BLOOD SPECIMEN / Unknown Lab Venipuncture / Unknown 10/25/2023 11:42 AM HOME VISITS NURSE 10/25/2023 11:58 AM HOME VISITS NURSE Humphrey Esquivel MD LAB - CHEM ISTRY ORDERABLES Performing Organization Address City/State/[facility] Co de Phone Number [address] [address], [facility] [phone] * TRANSFERRIN (10/25/2023 11:42 AM HOME VISITS NURSE) Transferrin 274 174 - 382 mg/dL 10/25/2023 12:33 PM HOME VISITS NURSE [facility] Blood BLOOD SPECIMEN / Unknown Lab Venipuncture / Unknown 10/25/2023 11:42 AM HOME VISITS NURSE 10/25/2023 11:58 AM HOME VISITS NURSE Humphrey Esquivel MD LAB - CHEM ISTRY ORDERABLES Performing Organization Address City/[facility]/ZIP Co de Phone Number [address] [address], [facility] [phone] * ALPHA FETOPROTEIN BLOOD TUMOR MARKER (10/25/2023 11:42 AM HOME VISITS NURSE) Pathologist [facility] Alpha-Fetoprote in Tumor Marker 3.0 <=8.3 ng/mL 10/25/2023 12:51 PM HOME VISITS NURSE [facility] Comment: AFP values will vary depending on testing procedure used. Results are not comparable across different methods. AFP values obtained by [facility] using an [employer] Alinity Immunoassay. Blood BLOOD SPECIMEN / Unknown Lab Venipuncture / Unknown 10/25/2023 11:42 AM HOME VISITS NURSE 10/25/2023 12:03 PM HOME VISITS NURSE Humphrey Esquivel MD LAB - CHEM ISTRY ORDERABLES Performing Organization Address [facility]/ZIP Co de Phone Number [address] [address], [facility] [phone] * (ABNORMAL) BILIRUBIN DIRECT (10/25/2023 11:42 AM HOME VISITS NURSE) [facility] Bilirubin Conjugated 0.6(H) 0.1 - 0.5 mg/dL 10/25/2023 12:31 PM HOME VISITS NURSE [facility] Blood BLOOD SPECIMEN / Unknown Lab Venipuncture / Unknown 10/25/2023 11:42 AM HOME VISITS NURSE 10/25/2023 12:01 PM HOME VISITS NURSE Humphrey Esquivel MD LAB - CHEM ISTRY ORDERABLES [address] [address], [place] [phone] * PT-INR [facility] (10/25/2023 11:42 AM HOME VISITS NURSE) Pathologist [facility] PT 14.8 12.1 - 14.8 Seconds 10/25/2023 12:28 PM HOME VISITS NURSE [facility] INR 1.2 See Comment 10/25/2023 12:28 PM [facility] Comment:The suggested therap eutic range for standard coumadin (warfarin) therapy is an INR of 2.0-3.0. For high-risk patients (Mechanical Mitral Valve Prosthesis, etc.), the suggested prophylactic therapeutic range is an INR of 2.5-3.5. Blood BLOOD SPECIMEN / Unknown Lab Venipuncture / Unknown 10/25/2023 11:42 AM HOME VISITS NURSE 10/25/2023 11:57 AM HOME VISITS NURSE Humphrey Esquivel MD LAB - COAG ULATION ORDERABLES [facility] [address] [place] [address], [facility] [phone] * (ABNORMAL) COMPREHENSIVE METABOLIC PANEL (10/25/2023 11:42 AM HOME VISITS NURSE) BUN 12 7 - 26 mg/dL 10/25/2023 12:31 PM [facility] Creatinine 0.74 0.56 - 0.96 mg/dL 10/25/2023 12:31 PM [facility] Sodium 144 136 - 145 mmol/L 10/25/2023 12:31 PM [facility] Potassium 4.1 3.5 - 4.5 mmol/L 10/25/2023 12:31 PM [facility] Chloride 108(H) 98 - 107 mmol/L 10/25/2023 12:31 PM [facility] CO2 27 22 - 29 mmol/L 10/25/2023 12:31 PM [facility] Glucose 130(H) 70 - 115 mg/dL 10/25/2023 12:31 PM [facility] Calcium 8.9 8.4 - 10.2 mg/dL 10/25/2023 12:31 PM [facility] Protein Total 6.8 6.0 - 8.3 g/dL 10/25/2023 12:31 PM [facility] Albumin 3.4 3.4 - 5.0 g/dL 10/25/2023 12:31 PM [facility] Bilirubin Total 2.1(H) 0.2 - 1.2 mg/dL 10/25/2023 12:31 PM [facility] Alkaline Phosphatase 88 40 - 150 U/L 10/25/2023 12:31 PM [facility] ALT 33 5 - 55 U/L 10/25/2023 12:31 PM [facility] AST 46(H) 5 - 34 U/L 10/25/2023 12:31 PM [facility] Anion Gap 9 6 - 16 10/25/2023 12:31 PM [facility] BUN/Creatinine Ratio 16 7 - 23 10/25/2023 12:31 PM [facility] Osmolality Calculated 300(H) 275 - 295 mOsm/kg 10/25/2023 12:31 PM [facility] Albumin/Globulin Ratio 1.0(L) 1.1 - 2.3 10/25/2023 12:31 PM [facility] eGFR by CKD-EPI 81(L) >=90 mL/min/1.7 3 m2 10/25/2023 12:31 PM [facility] Blood BLOOD SPECIMEN / Unknown Lab Venipuncture / Unknown 10/25/2023 11:42 AM HOME VISITS NURSE 10/25/2023 12:01 PM [facility] Humphrey Esquivel MD LAB - CHEM ISTRY ORDERABLES [facility] [address] [place] [address], [facility] [phone] * (ABNORMAL) CBC WITH DIFFERENTIAL (10/25/2023 11:42 AM [facility]) WBC 3.3(L) 4.0 - 10.7 x10E9/L 10/25/2023 12:43 PM [facility] RBC Count 3.66(L) 3.90 - 5.20 x10E12/L 10/25/2023 12:43 PM [facility] Hemoglobin 11.7(L) 11.9 - 15.8 g/dL 10/25/2023 12:43 PM [facility] Hematocrit 33.9(L) 34.8 - 46.1 % 10/25/2023 12:43 PM [facility] MCV 92.6 80.0 - 98.0 fL 10/25/2023 12:43 PM [facility] MCH 32.0 26.7 - 33.6 pg 10/25/2023 12:43 PM [facility] MCHC 34.5 31.7 - 36.3 g/dL 10/25/2023 12:43 PM [facility] RDW-CV 13.8 11.3 - 14.8 % 10/25/2023 12:43 PM [facility] Platelet Count 80(L) 150 - 420 x10E9/L 10/25/2023 12:43 PM [facility] MPV 10.5 7.8 - 11.4 fL 10/25/2023 12:43 PM [facility] Neutrophil % 62.7 41.0 - 74.0 % 10/25/2023 12:43 PM [facility] Lymphocyte % 24.3 17.0 - 47.0 % 10/25/2023 12:43 PM [facility] Monocyte % 8.2 3.0 - 11.0 % 10/25/2023 12:43 PM [facility] Eosinophil % 3.3 0.0 - 7.0 % 10/25/2023 12:43 PM [facility] Basophil % 0.9 0.0 - 1.6 % 10/25/2023 12:43 PM [facility] Immature Granulocytes % 0.6 0.0 - 1.0 % 10/25/2023 12:43 PM [facility] Neutrophil Absolute 2.06 1.60 - 7.50 x10E9/L 10/25/2023 12:43 PM [facility] Lymphocyte Absolute 0.80(L) 1.00 - 4.40 x10E9/L 10/25/2023 12:43 PM [facility] Monocyte Absolute 0.27 0.15 - 1.00 x10E9/L 10/25/2023 12:43 PM [facility] Eosinophil Absolute 0.11 0.00 - 0.60 x10E9/L 10/25/2023 12:43 PM [facility] Basophil Absolute 0.03 0.00 - 0.13 x10E9/L 10/25/2023 12:43 PM HOME VISITS NURSE [facility] Blood BLOOD SPECIMEN / Unknown Lab Venipuncture / Unknown 10/25/2023 11:42 AM HOME VISITS NURSE 10/25/2023 12:03 PM HOME VISITS NURSE Humphrey Esquivel MD LAB - RIKKI TOLOGY ORDERABLES Performing Organization Address City/State/[facility] Co de Phone Number [facility] [address] [place] [address] [phone] documented in this encounter Visit Diagnoses Diagnosis Liver cirrhosis secondary to [facility] Other chronic nonalcoholic liver disease documented in this encounter Care Teams Fire Alarm Mechanic Relationship Specialty Start Date End Date Isreal Lin [address] [facility], [place] [id number] PCP - General Internal Medicine 10/25/23 documented as of this encounter
--- OUTSIDE RECORDS SUMMARY | 2024-09-25 21:55 | XMS_ITS | Encounter Summary ---
Author Organization [facility] Address [address] [facility] [place] [address] Care Team Providers Care Order Manager Name Role Phone Karin Cordoba INSTRUCTIONAL DESIGN CONSULTANT-HEEL SCORER Primary Care Provider + Encounter Details Date Type Department Care Team (Late Contact Info) Description 11/17/2022 Orders Only [facility] - GI [address] [place] [phone] Humphrey Esquivel MD [address] [place] [address] [place] [address] 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) Social [...] (Late Contact Info) Description 10/23/2024 10:00 AM PROGRAM PROJECT ANALYST Office Visit [facility] [address] [place] [phone] Humphrey Esquivel MD [address] [place] [address] documented as of this encounter Goals Goal Patient Goal Type Associated Problems Recent Progress Patient-Stated? Author Medication Management General On track( 024 9:45 AM PROGRAM PROJECT ANALYST) Emre Broussard, RN Note: Expected end date: [...] disease documented in this encounter Care Teams Order Manager Relationship Specialty Start Date End Date Karin Cordoba APRN-HILARIO [address] [address] PCP - General 11/16/22 10/24/23 documented as of this encounter
--- OUTSIDE RECORDS SUMMARY | 2024-09-25 21:55 | XMS_ITS | Encounter Summary ---
Author Organization [facility] Address [address] [facility] [place] [address] Care Team Providers Care Press Operator Printing Name Role Phone Unavailable Primary Care Provider Unavailabl e Reason for Visit * Reason Onset Date Comments Imaging Results 07/22/2021 Encounter Details Date Type Department Care Team (Late st Contact Info) Description 07/22/2021 Telephone [facility] TRANS[facility] [address] [place] [address] Humphrey Esquivel MD [address] [facility] [address] [facility] [place] [address] Imaging Results Social History Tobacco Use Types Packs/Day [...] encounter Miscellaneous Notes * Telephone Encounter - Arlen Topete RN - 07/22/2021 2:37 PM CDT Patient calls asking about US done at an outside facility. She states that the results should have been sent to this office. Found nothing in chart. Informed patient that a message will get to the nurse and the doctor and someone will get to her. documented in this encounter Plan of Treatment Upcoming Encounters Date Type Department Care Team (Late st Contact Info) Description 10/23/2024 10:00 AM RADIOTELEGRAPHER Office Visit [facility] - GI [address] [place] [address], [place] [address] Humphrey Esquivel MD [address] [place] [address] [place] [address] documented as of this encounter Goals Goal Patient Goal Type Associated Problems Recent Progress Patient-Stated? Author Medication Management General On track( 024 9:45 AM RADIOTELEGRAPHER) Emre Broussard, RN Note: Expected end date: Interventions: Take all medications as prescribed Let your doctor know right away about any changes in your medications Make sure to request a refill of your medication at least one week prior to your last dose documented as of this encounter Visit Diagnoses Not on filedocumented in this encounter
--- OUTSIDE RECORDS SUMMARY | 2024-09-25 21:55 | XMS_ITS | Encounter Summary ---
Author Organization [facility] Address [address] [facility] [place] [address] Care Team Providers Care Hair Weaver Name Role Phone Unavailable Primary Care Provider Unavailabl e Reason for Visit * Reason Comments Future Appointment Encounter Details Date Type Department Care Team (Late st Contact Info) Description 03/01/2018 Telephone [facility] [address] [place], [place] [phone] Emre Paez, RN Future Appointment Social History Tobacco Use Types Packs/Day Years [...] as of this encounter Progress Notes * Emre Paez, RN - 03/01/2018 10:20 AM CDT Call placed to pt, discussed upcoming appt (03/14/18 @8052) and labs needed. States had blood drawn recently for PCP, pt to check with PCP and have labs faxed(# given). Informed pt I will review what has been done and whether this is suitable for visit at this office. Verbalizes understanding. documented in this encounter Plan of Treatment Upcoming Encounters Date Type Department Care Team (Late st Contact Info) Description 10/23/2024 10:00 AM HIGH SCHOOL ASSISTANT PRINCIPAL Office Visit [facility] - [facility] [facility], [place] [phone] Humphrey Esquivel MD [address] [place] [address] [place] [address] documented as of this encounter Visit Diagnoses Not on filedocumented in this encounter
--- OUTSIDE RECORDS SUMMARY | 2024-09-25 21:55 | XMS_ITS | Encounter Summary ---
Author Organization [facility] Address [address] [facility] [address] Care Team Providers Care Imaging Science Professor Name Role Phone Unavailable Primary Care Provider Unavailabl e Encounter Details Date Type Department Care Team (Latest Contact Info) Description 04/05/2017 Hospital Outpatient Visit [facility] G[facility]ology and Hepatology [address] [place] [address] Humphrey Ward MD [address] [place] [address] [address] [place] [address] Discharge Disposition: Home or Self Care Social [...] st Contact Info) Description 10/23/2024 10:00 AM TIRE MOLD ENGRAVER Office Visit [facility] - GI [address] [place] [address], [place] [phone] Humphrey Esquivel MD [address] [place] [address] [address] [place] [address] documented as of this encounter Visit Diagnoses Not on filedocumented in this encounter
--- OUTSIDE RECORDS SUMMARY | 2024-09-25 21:55 | XMS_ITS | Encounter Summary ---
Author Organization [facility] Address [address] [facility] [address] Care Team Providers Care Certified Pharmacy Technician Name Role Phone Unavailable Primary Care Provider Unavailabl e Reason for Visit * Reason Comments Refill Request Encounter Details Date Type Department Care Team (Late Contact Info) Description 02/11/2022 Refill [facility] [address] [place] [phone] Humphrey Esquivel MD [address] [place] [address] [address] [place] [address] Refill Request Social History Tobacco Use Types [...] (Late Contact Info) Description 10/23/2024 10:00 AM VEHICLE FUEL SYSTEMS CONVERTER Office Visit [facility] [address] [place] [phone] Humphrey Esquivel MD [address] [place] [address] [address] [place] [address] documented as of this encounter Goals Goal Patient Goal Type Associated Problems Recent Progress Patient-Stated? Author Medication Management General On track( 024 9:45 AM VEHICLE FUEL SYSTEMS CONVERTER) Emre Broussard, RN Note: Expected end date: Interventions: Take all medications as prescribed Let your doctor know right away about any changes in your medications Make sure to request a refill of your medication at least one week prior to your last dose documented as of this encounter Visit Diagnoses Not on filedocumented in this encounter
--- OUTSIDE RECORDS SUMMARY | 2024-09-25 21:55 | XMS_ITS | Encounter Summary ---
Author Organization [facility] Address [address] [facility] [place] [address] Care Team Providers Care Line Fisher Name Role Phone Unavailable Primary Care Provider Unavailabl e Encounter Details Date Type Department Care Team (Late Contact Info) Description 10/19/2019 Orders Only [facility] [address] [place] [phone] Emre Paez, RN Liver cirrhosis secondary to [...] (Late Contact Info) Description 10/23/2024 10:00 AM OFFAL TRIMMER Office Visit [facility] [place] [phone] Humphrey Esquivel MD [address] [place] [address] [place] [address] documented as of this encounter Results * PT-INR [facility] (11/13/2019 8:34 AM OFFAL TRIMMER) PT 13.9 12.1 - 14.8 Seconds 11/13/2019 9:55 AM [facility] INR 1.1 See Comment 11/13/2019 9:55 AM [facility] Comment: The suggested therapeutic range for standard coumadin (warfarin) therapy is an INR of 2.0-3.0. For high-risk patients (Mechanical Mitral Valve Prosthesis, etc.), the suggested prophylactic therapeutic range is an INR of 2.5-3.5. Blood BLOOD SPECIMEN / Unknown Lab Venipuncture / Unknown 11/13/2019 8:34 AM OFFAL TRIMMER 11/13/2019 8:43 AM [facility] Humphrey Esquivel MD LAB - COAG ULATION ORDERABLES Performing Organization Address City/State/[facility] Co de Phone Number [address] [phone] * (ABNORMAL) COMPREHENSIVE METABOLIC PANEL (11/13/2019 8:34 AM [facility]) BUN 15 7 - 26 mg/dL 11/13/2019 10:49 AM [facility] Creatinine 0.8 0.6 - 1.2 mg/dL 11/13/2019 10:49 AM [facility] Sodium 144 136 - 145 mmol/L 11/13/2019 10:49 AM [facility] Potassium 3.9 3.5 - 4.5 mmol/L 11/13/2019 10:49 AM [facility] Chloride 107 98 - 107 mmol/L 11/13/2019 10:49 AM [facility] CO2 24 22 - 29 mmol/L 11/13/2019 10:49 AM [facility] Glucose 148(H) 70 - 115 mg/dL 11/13/2019 10:49 AM [facility] Calcium 9.3 8.4 - 10.2 mg/dL 11/13/2019 10:49 AM [facility] Protein Total 6.8 6.0 - 8.3 g/dL 11/13/2019 10:49 AM [facility] Albumin 3.5 3.4 - 5.0 g/dL 11/13/2019 10:49 AM [facility] Bilirubin Total 2.1(H) 0.2 - 1.2 mg/dL 11/13/2019 10:49 AM [facility] Alkaline Phosphatase 72 40 - 150 Units/L 11/13/2019 10:49 AM [facility] ALT 41 0 - 55 Units/L 11/13/2019 10:49 AM [facility] AST 43(H) 5 - 34 Units/L 11/13/2019 10:49 AM [facility] Anion Gap 17 8 - 18 11/13/2019 10:49 AM [facility] BUN/Creatinine Ratio 19 7 - 23 11/13/2019 10:49 AM [facility] Osmolality Calculated 302(H) 270 - 300 mOsm/kg 11/13/2019 10:49 AM [facility] Albumin/Globulin Ratio 1.1 1.1 - 2.3 11/13/2019 10:49 AM [facility] eGFR >60 >60 mL/min/1.7 3 m2 11/13/2019 10:49 AM [facility] Blood BLOOD SPECIMEN / Unknown Lab Venipuncture / Unknown 11/13/2019 8:34 AM OFFAL TRIMMER 11/13/2019 8:42 AM [facility] Humphrey Esquivel MD LAB - CHEM ISTRY ORDERABLES [address] [phone] * (ABNORMAL) CBC WITH DIFFERENTIAL (11/13/2019 8:34 AM [facility]) WBC 3.0(L) 3.5 - 10.5 10? 3 /uL 11/13/2019 9:12 AM [facility] RBC 4.06 3.90 - 5.00 10? 6 /uL 11/13/2019 9:12 AM [facility] Hemoglobin 12.9 12.0 - 15.5 g/dL 11/13/2019 9:12 AM [facility] Hematocrit 37.7 35.0 - 45.0 % 11/13/2019 9:12 AM [facility] MCV 92.9 81.0 - 97.0 fL 11/13/2019 9:12 AM [facility] MCH 31.8 28.0 - 34.0 pg 11/13/2019 9:12 AM [facility] MCHC 34.2 32.0 - 36.0 g/dL 11/13/2019 9:12 AM [facility] Platelet Count 87(L) 150 - 400 10? 3 /uL 11/13/2019 9:12 AM [facility] RDW-SD 44.9 36.0 - 50.0 fL 11/13/2019 9:12 AM [facility] RDW-CV 13.2 11.2 - 14.8 % 11/13/2019 9:12 AM [facility] MPV 10.6 9.3 - 12.8 fL 11/13/2019 9:12 AM [facility] nRBC Absolute 0.00 0 10? 3 /uL 11/13/2019 9:12 AM [facility] nRBC Auto 0.0 0 /100 WBC 11/13/2019 9:12 AM [facility] Neutrophils % 57.7 35.0 - 70.0 % 11/13/2019 9:12 AM [facility] Lymphocytes % 29.3 19.7 - 55.1 % 11/13/2019 9:12 AM [facility] Monocytes % 9.7 3.0 - 15.0 % 11/13/2019 9:12 AM [facility] Eosinophils % 2.7 0.0 - 6.0 % 11/13/2019 9:12 AM [facility] Basophil % 0.3 0.0 - 1.5 % 11/13/2019 9:12 AM [facility] Neutrophils Absolute 1.7 1.6 - 7.0 10? 3 /uL 11/13/2019 9:12 AM [facility] Lymphocyte Absolute 0.9 0.8 - 2.9 10? 3 /uL 11/13/2019 9:12 AM [facility] Monocytes Absolute 0.29 0.14 - 0.66 10? 3 /uL 11/13/2019 9:12 AM [facility] Eosinophils Absolute 0.08 0.00 - 0.45 10? 3 /uL 11/13/2019 9:12 AM [facility] Basophils Absolute 0.01 0.00 - 0.06 10? 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
--- OUTSIDE RECORDS SUMMARY | 2024-09-25 21:55 | XMS_ITS | Encounter Summary ---
Author Organization [facility] Address [address] [place] [address] Care Team Providers Care Optical Instruments Supervisor Name Role Phone Unavailable Primary Care Provider Unavailabl e Encounter Details Date Type Department Care Team (Late st Contact Info) Description 03/16/2013 Hospital Outpatient Visit Historic [facility] Default Department Cecilia Irizarry MD [address] [place] [address] Discharge Disposition: Home or Self Care Social [...] st Contact Info) Description 10/23/2024 10:00 AM PLUSH CUTTER Office Visit [facility] [address] [facility], [place] [address] Humprhey Esquivel MD [facility] DIV [place] [address] documented as of this encounter Visit Diagnoses Not on filedocumented in this encounter
--- OUTSIDE RECORDS SUMMARY | 2024-09-25 21:55 | XMS_ITS | Encounter Summary ---
Author Organization [facility] Address [address] [facility] [place] [address] Care Team Providers Care Interactive Developer Name Role Phone Unavailable Primary Care Provider Unavailabl e Reason for Visit * Reason Onset Date Comments Results 11/15/2019 Blood tests Encounter Details Date Type Department Care Team (Late st Contact Info) Description 11/15/2019 Telephone [facility] [address] [place] [address], [place] [address] Humphrey Esquivel MD [address] [place] [address] [place] [address] Results (Blood tests) Social History Tobacco Use Types Packs/Day Years [...] Miscellaneous Notes * Telephone Encounter - Humphrey Vanegas MD - 11/15/2019 4:14 PM CST I called Ms. Maggie Erazo to discuss her lab results. Bili is up a bit but I think that she may have Gilbert's. Total has been up before with normal direct bili. We also discussed her platelet count and I explained that we do see low platelets in the setting of cirrhosis and this level is not dangerous. The plan is US soon as planned Humphrey Vanegas MD 11/15/2019, 4:14 PM No orders of the defined types were placed in this encounter. True CAL LABORATORY TECHNOLOGIST documented in this encounter Plan of Treatment Upcoming Encounters Date Type Department Care Team (Late st Contact Info) Description 10/23/2024 10:00 AM MEDICAL LABORATORY TECHNOLOGIST Office Visit [facility] - GI [address] [place] [address], [place] [phone] [facility] Vaneg[facility] MD [address] [place] [address] [place] [address] documented as of this encounter Goals Goal Patient Goal Type Associated Problems Recent Progress Patient-Stated? Author Medication Management General On track( 024 9:45 AM MEDICAL LABORATORY TECHNOLOGIST) No Emre Paez, RN Note: Expected end [...]
--- OUTSIDE RECORDS SUMMARY | 2024-09-25 21:55 | XMS_ITS | Encounter Summary ---
Author Organization [facility] Address [address] [facility] [place] [address] Care Team Providers Care Motor Runner Name Role Phone Unavailable Primary Care Provider Unavailabl e Encounter Details Date Type Department Care Team (Late st Contact Info) Description 07/04/2014 Hospital Outpatient Visit Historic [facility] [address] [place] [address] Cecilia Irizarry MD [address] [place] [address] Rd [address] [place] [address] Discharge Disposition: Home or Self Care Social [...] st Contact Info) Description 10/23/2024 10:00 AM CARGO AND RAMP SERVICES MANAGER Office Visit [facility] [address] [facility], [place] [address] Humphrey Esquivel MD [address] [place] [address] DIV [place] [address] documented as of this encounter Visit Diagnoses Not on filedocumented in this encounter
--- OUTSIDE RECORDS SUMMARY | 2024-09-25 21:55 | XMS_ITS | Encounter Summary ---
Author Organization [facility] Address [address] [facility] [place] [address] Care Team Providers Care Communications Tech Name Role Phone Isreal Lin Primary Care Provider [phone] Reason for Visit * Reason Comments Refill Request Encounter Details Date Type Department Care Team (Late Contact Info) Description 04/29/2024 Refill [facility] [place] [address] [place] [phone] Humphrey Esquivel MD [address] [place] [address] [place] [address] Refill Request Social History Tobacco Use Types [...] Upcoming Encounters Date Type Department Care Team ([facility] Contact Info) Description 10/23/2024 10:00 AM BUSINESS TEST ANALYST Office Visit [facility] [address] [place] [phone] Humphrey Esquivel MD [address] [place] [address] documented as of this encounter Goals Goal Patient Goal Type Associated Problems Recent Progress Patient-Stated? Author Medication Management General On track( 024 9:45 AM BUSINESS TEST ANALYST) Emre Broussard, RN Note: Expected end date: Interventions: Take all medications as prescribed Let your doctor know right away about any changes in your medications Make sure to request a refill of your medication at least one week prior to your last dose documented as of this encounter Visit Diagnoses Not on filedocumented in this encounter Care Teams Communications Tech Relationship Specialty Start Date End Date Isreal Lin [address] [place] [address] PCP - General Internal Medicine 10/25/23 documented as of this encounter
--- OUTSIDE RECORDS SUMMARY | 2024-09-25 21:55 | XMS_ITS | Encounter Summary ---
Author Organization [facility] Address [address] [facility] [place] [address] Care Team Providers Care Armament Repairer Name Role Phone Karin Cordoba KAVON-WELDING MACHINE OPERATOR HELPER GAS Primary Care Provider + Reason for Visit * Reason Comments Refill Request Encounter Details Date Type Department Care Team (Late Contact Info) Description 08/07/2023 Refill [facility] [address] [place] [phone] Humphrey Esquivel MD [address] [place] [address] [place] [address] Refill Request Social History Tobacco Use Types [...] (Late Contact Info) Description 10/23/2024 10:00 AM CURTAIN ROLLER ASSEMBLER Office [place] [facility] [place] [address] [place] [phone] Humphrey Esquivel MD [address] [place] [address] documented as of this encounter Goals Goal Patient Goal Type Associated Problems Recent Progress Patient-Stated? Author Medication Management General On track( 024 9:45 AM CURTAIN ROLLER ASSEMBLER) Emre Broussard, RN Note: Expected end date: Interventions: Take all medications as prescribed Let your doctor know right away about any changes in your medications Make sure to request a refill of your medication at least one week prior to your last dose documented as of this encounter Visit Diagnoses Not on filedocumented in this encounter Care Teams Armament Repairer Relationship Specialty Start Date End Date Karin Cordoba APRN-HILARIO [address] [phone] PCP - General 11/16/22 10/24/23 documented as of this encounter
--- OUTSIDE RECORDS SUMMARY | 2024-09-25 21:55 | XMS_ITS | Encounter Summary ---
Author Organization [facility] Address [address] [place] [address] Care Team Providers Care Director Manufacturing Engineering Name Role Phone Unavailable Primary Care Provider Unavailabl e Reason for Visit * Reason Comments Concerns Encounter Details Date Type Department Care Team (Late st Contact Info) Description 07/24/2021 Telephone [facility] - Nephrology [address] [place] [address], [place] [address] Caitlin Mace RN Concerns Social History Tobacco Use Types Packs/Day Years [...] Telephone Encounter - Emre Paez RN - 07/24/2021 1:52 PM CDT MCM sent to pt * Telephone Encounter - Caitlin Mace RN - 07/24/2021 10:23 AM CDT Pt called and wanted to know if her US report has been received in this office, please call [phone]. documented in this encounter Plan of Treatment Upcoming Encounters Date Type Department Care Team (Late st Contact Info) Description 10/23/2024 10:00 AM ENERGY CONSERVATION REPRESENTATIVE [place] [facility] [place] [address] [place] [address], [place] [address] Humphrey Esquivel MD [address] [place] [address] [place] [address] documented as of this encounter Goals Goal Patient Goal Type Associated Problems Recent Progress Patient-Stated? Author Medication Management General On track( 024 9:45 AM ENERGY CONSERVATION REPRESENTATIVE) Emre Broussard, RN Note: Expected end date: Interventions: Take all medications as prescribed Let your doctor know right away about any changes in your medications Make sure to request a refill of your medication at least one week prior to your last dose documented as of this encounter Visit Diagnoses Not on filedocumented in this encounter
--- OUTSIDE RECORDS SUMMARY | 2024-09-25 21:55 | XMS_ITS | Encounter Summary ---
Author Organization [facility] Address [address] [facility] [place] [address] Care Team Providers Care Pharmaceutical Process Engineer Name Role Phone Unavailable Primary Care Provider Unavailabl e Reason for Visit * Reason Comments Results Encounter Details Date Type Department Care Team (Late Contact Info) Description 11/15/2019 Telephone [facility] [address] [place] [address] Josiane Haskins, RUBEN Results Social History Tobacco Use Types Packs/Day [...] as of this encounter Progress Notes * Josiane Haskins, RN - 11/15/2019 11:36 AM CST Pt contacts triage line with questions re results of recent lab work. Cbc released to [facility], and pt questioning plat count. Reviewed results and answered questions. Informed pt that if Dr Vanegas hadspecific comments re rest of her labs he would add comments to results or someone would call her. LOADER documented in this encounter Plan of Treatment Upcoming Encounters Date Type Department Care Team (Late Contact Info) Description 10/23/2024 10:00 AM LOG LOADER Office Visit [facility] - [facility] [address] [facility], [place] [address] Humphrey Esquivel MD [facility] [place] [address] documented as of this encounter Goals Goal Patient Goal Type Associated Problems Recent Progress Patient-Stated? Author Medication Management General On track( 024 9:45 AM LOG LOADER) Emre Broussard, RN Note: Expected end date: Interventions: Take all medications as prescribed Let your doctor know right away about any changes in your medications Make sure to request a refill of your medication at least one week prior to your last dose documented as of this encounter Visit Diagnoses Not on filedocumented in this encounter
--- OUTSIDE RECORDS SUMMARY | 2024-09-25 21:55 | XMS_ITS | Encounter Summary ---
Author Organization [facility] Address [address] [place] [address] Care Team Providers Care Steam Heating Installer Name Role Phone Unavailable Primary Care Provider Unavailabl e Encounter Details Date Type Department Care Team (Latest Contact Info) Description 04/08/2015 Hospital Outpatient Visit Historic [facility] DEFAULT [address] [place] [address] [facility] [facility] [address] [place] [address] Discharge Disposition: Home or Self Care Social [...] st Contact Info) Description 10/23/2024 10:00 AM LINE PREP COOK Office Visit [facility] [address] [facility], [place] [phone] Humphrey Esquivel MD [address] [facility] [address] [place] [address] documented as of this encounter Visit Diagnoses Not on filedocumented in this encounter
--- OUTSIDE RECORDS SUMMARY | 2024-09-25 21:55 | XMS_ITS | Encounter Summary ---
Author Organization [facility] Address [address] [place] [address] Care Team Providers Care Assistant Finance Director Name Role Phone Unavailable Primary Care Provider Unavailabl e Encounter Details Date Type Department Care Team (Latest Contact Info) Description 11/13/2019 8:15 AM CARTRIDGE MAKER - 11/13/2019 11:59 PM [facility] Hospital Encounter [facility] DRAW STATION [address] [place] [phone] Humphrey Brower MD [address] [place] [address] Discharge Disposition: Home or Self Care Social [...] times daily 11/17/2021 FLUTICASONE PROPIONATE, NASAL, NA [place] 2 sprays into the nose at bedtime 11/17/2021 nadolol (CORGARD) 40 MG tablet Take 1 tablet by mouth once daily 90 tablet 3 11/13/2019 11/18/2020 documented as of this encounter Plan of Treatment Upcoming Encounters Date Type Department Care Team (Late st Contact Info) Description 10/23/2024 10:00 AM CARTRIDGE MAKER Office Visit [facility] - GI [address] [place] [address], [place] [phone] Humphrey Esquivel MD [address] [place] [address] [place] [address] documented as of this encounter Goals Goal Patient Goal Type Associated Problems Recent Progress Patient-Stated? 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 Comment: The suggested therapeutic range for standard coumadin (warfarin) therapy is an INR of 2.0-3.0. For high-risk patients (Mechanical Mitral Valve Prosthesis, etc.), the suggested prophylactic therapeutic range is an INR of 2.5-3.5. Blood BLOOD SPECIMEN / Unknown Lab Venipuncture / Unknown 11/13/2019 8:34 AM CARTRIDGE MAKER 11/13/2019 8:43 AM CARTRIDGE MAKER Humphrey Esquivel MD LAB - COAG ULATION ORDERABLES Performing Organization Address City/State/[facility] Co de Phone Number [address] [phone] * (ABNORMAL) COMPREHENSIVE METABOLIC PANEL (11/13/2019 8:34 AM [facility]) BUN 15 7 - 26 mg/dL 11/13/2019 10:49 AM [facility]OR[facility] Creatinine 0.8 0.6 - 1.2 mg/dL 11/13/2019 10:49 AM [facility] Sodium 144 136 - 145 mmol/L 11/13/2019 10:49 AM [facility] Potassium 3.9 3.5 - 4.5 mmol/L 11/13/2019 10:[address] [facility] Chloride 107 98 - 107 mmol/L 11/13/2019 10:49 [address] [facility] CO2 24 22 - 29 mmol/L 11/13/2019 10:49 AM [facility] Glucose 148(H) 70 - 115 mg/dL 11/13/2019 10:49 AM [facility] Calcium 9.3 8.4 - 10.2 mg/dL 11/13/2019 10:49 AM [facility] Protein Total 6.8 6.0 - 8.3 g/dL 11/13/2019 10:49 AM [facility] Albumin 3.5 3.4 - 5.0 g/dL 11/13/2019 10:49 AM [facility] Bilirubin Total 2.1(H) 0.2 - 1.2 mg/dL 11/13/2019 10:49 AM [facility] Alkaline Phosphatase 72 40 - 150 Units/L 11/13/2019 10:49 AM [facility] ALT 41 0 - 55 Units/L 11/13/2019 10:49 AM [facility] AST 43(H) 5 - 34 Units/L 11/13/2019 10:49 AM [facility] Anion Gap 17 8 - 18 11/13/2019 10:49 AM [facility] BUN/Creatinine Ratio 19 7 - 23 11/13/2019 10:49 AM [facility] Osmolality Calculated 302(H) 270 - 300 mOsm/kg 11/13/2019 10:49 AM [facility] Albumin/Globulin Ratio 1.1 1.1 - 2.3 11/13/2019 10:49 AM [facility] eGFR >60 >60 mL/min/1.7 3 m2 11/13/2019 10:49 AM [facility] Blood BLOOD SPECIMEN / Unknown Lab Venipuncture / Unknown 11/13/2019 8:34 AM CARTRIDGE MAKER 11/13/2019 8:42 AM [facility] Humphrey Esquivel MD LAB - CHEM ISTRY ORDERABLES [place] [id number] [address] [phone] * (ABNORMAL) CBC WITH DIFFERENTIAL (11/13/2019 8:34 AM [facility]) WBC 3.0(L) 3.5 - 10.5 10? 3 /uL 11/13/2019 9:12 AM [facility] RBC 4.06 3.90 - 5.00 10? 6 /uL 11/13/2019 9:12 AM [facility] Hemoglobin 12.9 12.0 - 15.5 g/dL 11/13/2019 9:12 AM [facility] Hematocrit 37.7 35.0 - 45.0 % 11/13/2019 9:12 AM [facility] MCV 92.9 81.0 - 97.0 fL 11/13/2019 9:12 AM [facility] MCH 31.8 28.0 - 34.0 pg 11/13/2019 9:12 AM [facility] MCHC 34.2 32.0 - 36.0 g/dL 11/13/2019 9:12 AM [facility] Platelet Count 87(L) 150 - 400 10? 3 /uL 11/13/2019 9:12 AM [facility] RDW-SD 44.9 36.0 - 50.0 fL 11/13/2019 9:12 AM [facility] RDW-CV 13.2 11.2 - 14.8 % 11/13/2019 9:12 AM [facility] MPV 10.6 9.3 - 12.8 fL 11/13/2019 9:12 AM [facility] nRBC Absolute 0.00 0 10? 3 /uL 11/13/2019 9:12 AM [facility] nRBC Auto 0.0 0 /100 WBC 11/13/2019 9:12 AM [facility] Neutrophils % 57.7 35.0 - 70.0 % 11/13/2019 9:12 AM [facility] Lymphocytes % 29.3 19.7 - 55.1 % 11/13/2019 9:12 AM [facility] Monocytes % 9.7 3.0 - 15.0 % 11/13/2019 9:12 AM [facility] Eosinophils % 2.7 0.0 - 6.0 % 11/13/2019 9:12 AM [facility] Basophil % 0.3 0.0 - 1.5 % 11/13/2019 9:12 AM [facility] Neutrophils Absolute 1.7 1.6 - 7.0 10? 3 /uL 11/13/2019 9:12 AM [facility] Lymphocyte Absolute 0.9 0.8 - 2.9 10? 3 /uL 11/13/2019 9:12 AM [facility] Monocytes Absolute 0.29 0.14 - 0.66 10? 3 /uL 11/13/2019 9:12 AM [facility] Eosinophils Absolute 0.08 0.00 - 0.45 10? 3 /uL 11/13/2019 9:12 AM [facility] Basophils Absolute 0.01 0.00 - 0.06 10? 3 /uL 11/13/2019 9:12 AM [facility] Immature Granulocytes % 0.3 0.0 - 1.0 % 11/13/2019 9:12 AM [facility] Blood BLOOD SPECIMEN / Unknown Lab Venipuncture / Unknown 11/13/2019 8:34 AM CARTRIDGE MAKER 11/13/2019 8:43 AM [facility] Humphrey Esquivel MD LAB - RIKKI TOLOGY ORDERABLES 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
--- OUTSIDE RECORDS SUMMARY | 2024-09-25 21:55 | XMS_ITS | Encounter Summary ---
Author Organization [facility] Address [address] [place] [address] Care Team Providers Care Certified Alcohol And Drug Counselor Name Role Phone Isreal Lin Primary Care Provider [phone] Reason for Visit * Reason Comments Refill Request Encounter Details Date Type Department Care Team (Late st Contact Info) Description 07/26/2024 Refill [facility] - GI [address] [facility], [place] [phone] Humphrey Esquivel MD [address] [place] [address] [place] [address] Refill Request Social History Tobacco Use Types [...] encounter Miscellaneous Notes * Telephone Encounter - Octavia Mays RN - 07/26/2024 7:51 AM CDT [facility] 10/23/2023 NOV 10/25/2024 documented in this encounter Plan of Treatment Upcoming Encounters Date Type Department Care Team (Late st Contact Info) Description 10/23/2024 10:00 AM INVENTORY CONTROL/SHIPPING RECEIVING Office Visit [facility] - GI [address] [facility], [place] [address] Humphrey Esquivel MD [address] [place] [address] [address] [place] [address] documented as of this encounter Goals Goal Patient Goal Type Associated Problems Recent Progress Patient-Stated? Author Medication Management General On track( 024 9:45 AM INVENTORY CONTROL/SHIPPING RECEIVING) Emre Broussard, RN Note: Expected end date: Interventions: Take all medications as prescribed Let your doctor know right away about any changes in your medications Make sure to request a refill of your medication at least one week prior to your last dose documented as of this encounter Visit Diagnoses Not on filedocumented in this encounter Care Teams Certified Alcohol And Drug Counselor Relationship Specialty Start Date End Date Isreal Lin [address] [place] [address] PCP - General Internal Medicine 10/25/23 documented as of this encounter
--- OUTSIDE RECORDS SUMMARY | 2024-09-25 21:55 | XMS_ITS | Encounter Summary ---
Author Organization [facility] Address [address] [facility] [place] [address] Care Team Providers Care Gravel Weigher Name Role Phone Unavailable Primary Care Provider Unavailabl e Encounter Details Date Type Department Care Team (Latest Contact Info) Description 10/01/2014 Hospital Outpatient Visit Historic [facility] DEFAULT [address] [place] [address] Humphrey Brower MD [address] [place] [address] [address] [place] [address] Discharge Disposition: Home or Self Care Social [...] Contact Info) Description 10/23/2024 10:00 AM LINE MAINTENANCE SUPERVISOR Office Visit [facility] - GI [facility] [facility], [facility] [place] [phone] Humphrey Esquivel MD [address] [place] [address] [address] [place] [address] documented as of this encounter Procedures Procedure Name Priority Date/Time Associated Diagnosis Comments PT-INR [facility] Routine 10/01/2014 3:35 PM LINE MAINTENANCE SUPERVISOR DIFFERENTIAL MANUAL Routine 10/01/2014 3 :35 PM LINE MAINTENANCE SUPERVISOR CBC W AUTO DIFFERENTIAL Routine 10/01/2014 3:35 PM LINE MAINTENANCE SUPERVISOR COMPREHENSIVE METABOLIC PANEL Routine 10/01/2014 3:35 PM LINE MAINTENANCE SUPERVISOR CBC W AUTO DIFFERENTIAL Routine 10/01/2014 3:35 PM LINE MAINTENANCE SUPERVISOR documented in this encounter Results * (ABNORMAL) DIFFERENTIAL MANUAL (10/01/2014 3:35 PM LINE MAINTENANCE SUPERVISOR) WBC (corrected for NRBC) 5.9 10? 3 /uL [facility] Total Cell Count 100 [facility] Neutrophils Absolute Manual 2.89 1.60 - 7.00 10? 3 /uL [facility] Comment:(BANDS+SEGS) x WBC = NEUT # (ANC) Lymphocyte Absolute Manual 2.48 0.80 - 2.90 10? 3 /uL [facility] Monocytes Absolute Manual 0.30 0.14 - 0.66 10? 3 /uL [facility] Eosinophils Absolute Manual 0.24(H) 0.00 - 0.22 10? 3 /uL [facility] Neutrophil % Manual 49 30 - 60 % [facility] Lymphocyte % Manual 42 20 - 45 % [facility] Monocytes % Manual 5 2 - 10 % [facility] Eosinophils % Manual 4 1 - 6 % [facility] Platelet Estimate Adequate Adequate [facility] RBC Morphology Normal [facility] Blood specimen (specimen) BLOOD SPECIMEN / Unknown 10/01/2014 3:35 PM LINE MAINTENANCE SUPERVISOR 10/01/2014 4:03 PM LINE MAINTENANCE SUPERVISOR Humphrey Esquivel MD LAB - RIKKI TOLOGY ORDERABLES [address] [phone] * (ABNORMAL) COMPREHENSIVE METABOLIC PANEL (10/01/2014 3:35 PM LINE MAINTENANCE SUPERVISOR) BUN 19 7 - 26 mg/dL [facility] Creatinine 1.0 0.6 - 1.2 mg/dL [facility] Sodium 141 136 - 145 mmol/L [facility] Potassium 3.9 3.5 - 4.5 mmol/L [facility] Chloride 101 98 - 107 mmol/L [facility] CO2 27 22 - 29 mmol/L [facility] Glucose 105 70 - 115 mg/dL [facility] Calcium 10.2 8.4 - 10.2 mg/dL [facility] Protein Total 7.4 6.0 - 8.3 g/dL [facility] Albumin 3.9 3.4 - 5.0 g/dL [facility] Bilirubin Total 1.3(H) 0.2 - 1.2 mg/dL [facility] Alkaline Phosphatase 60 40 - 150 Units/L [facility] ALT 65(H) 0 - 55 Units/L [facility] AST 57(H) 5 - 34 Units/L [facility] Anion Gap 17 8 - 18 [facility] BUN/Creatinine Ratio 19 7 - 23 [facility] Osmolality Calculated 280 270 - 300 mOsm/kg [facility] Albumin/Globulin Ratio 1.1 1.1 - 2.3 [facility] eGFR 55(L) >60 mL/min/1.7 3 m2 [facility] Blood specimen (specimen) BLOOD SPECIMEN / Unknown 10/01/2014 3:35 PM LINE MAINTENANCE SUPERVISOR 10/01/2014 3:53 PM LINE MAINTENANCE SUPERVISOR Humphrey Esquivel MD LAB - CHEM ISTRY ORDERABLES Performing Organization Address City/State/[facility] Co de Phone Number [facility] [address] [place] [address] * PT-INR U (10/01/2014 3:35 PM LINE MAINTENANCE SUPERVISOR) PT 13.7 12.1 - 14.8 Seconds [facility] INR 1.0 See Comment [facility] Comment: Suggested therapeutic range for low-intensity coumadin therapy for venous thromboembolism prophylaxis is an INR of 2.0-3.0. ??For high risk patients (Mitral Valve Prosthesis, Atrial Fibrillation, history of TIA/stroke), suggested prophylactic therapeutic range is an INR of 2.5-3.5. Blood specimen (specimen) BLOOD SPECIMEN / Unknown 10/01/2014 3:35 PM LINE MAINTENANCE SUPERVISOR 10/01/2014 3:53 PM LINE MAINTENANCE SUPERVISOR Narrative [facility] - 10/01/2014 4:13 PM LINE MAINTENANCE SUPERVISOR Is patient on Heparin, Argatroban or Dabigatran?->N Humphrey Esquivel MD LAB - COAG ULATION ORDERABLES [address] [phone] * CBC W AUTO DIFFERENTIAL (10/01/2014 3:35 PM LINE MAINTENANCE SUPERVISOR) WBC 5.9 3.5 - 10.5 10? 3 /uL [facility] RBC 4.36 3.90 - 5.00 10? 6 /uL [facility] Hemoglobin 14.0 12.0 - 15.5 g/dL [facility] Hematocrit 40.0 35.0 - 45.0 % [facility] MCV 91.7 81.0 - 97.0 fL [facility] MCH 32.1 28.0 - 34.0 pg [facility] MCHC 35.0 32.0 - 36.0 g/dL [facility] Platelet Count 169 150 - 400 10? 3 /uL [facility] RDW-SD 43.1 36.0 - 50.0 fL [facility] RDW-CV 12.8 11.2 - 14.8 % [facility] MPV 10.6 9.3 - 12.8 fL [facility] Reflex Status Manual Differential to follow. [facility] Blood specimen (specimen) BLOOD SPECIMEN / Unknown 10/01/2014 3:35 PM LINE MAINTENANCE SUPERVISOR 10/01/2014 3:53 PM LINE MAINTENANCE SUPERVISOR Humphrey Esquivel MD LAB - RIKKI TOLOGY ORDERABLES Performing Organization Address [facility]/ZIP Co de Phone Number [address] [phone] * CBC W AUTO DIFFERENTIAL (10/01/2014 3:35 PM LINE MAINTENANCE SUPERVISOR) Blood specimen (specimen) BLOOD SPECIMEN / Unknown 10/01/2014 3:35 PM LINE MAINTENANCE SUPERVISOR Narrative [facility] - 10/01/2014 4:27 PM LINE MAINTENANCE SUPERVISOR The following orders were created for panel order CBC w/diff. Procedure ? Abnormality ? Status ? --------- ? ------ ? CBC WITH DIFFERENTIAL[[id number]] ? Final result ? MANUAL DIFFERENTIAL[[id number]] ? Abnormal ?Final result ? Please view results for these tests on the individual orders. Humphrey Esquivel MD LAB - RIKKI TOLOGY ORDERABLES [facility] [address] [place] [address], [facility] documented in this encounter Visit Diagnoses Diagnosis Other chronic nonalcoholic liver disease documented in this encounter
--- OUTSIDE RECORDS SUMMARY | 2024-09-25 21:55 | XMS_ITS | Encounter Summary ---
Author Organization [facility] Address [address] [facility] [place] [address] Care Team Providers Care System Controller Name Role Phone Unavailable Primary Care Provider Unavailabl e Reason for Visit * Reason Comments Cirrhosis Cyr Encounter Details Date Type Department Care Team (Late st Contact Info) Description 11/14/2018 11:20 AM STRUCTURAL TEST ENGINEER Office Visit [facility] - GI [address] [place] [address], [place] [phone] Humphrey Chapa i, MD [address] [place] [address] [place] [address] 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) (Primary Dx) Social History Tobacco Use Types Packs/Day Years [...] Sign Reading Time Taken Comments Blood Pressure 160/70 11/14/2018 12:39 PM STRUCTURAL TEST ENGINEER Pulse 68 11/14/2018 12:39 PM STRUCTURAL TEST ENGINEER Temperature - - Respiratory Rate 14 11/14/2018 12:39 PM STRUCTURAL TEST ENGINEER Oxygen Saturation 96% 11/14/2018 12:39 PM STRUCTURAL TEST ENGINEER Inhaled Oxygen Concentration - - Weight 71.7 kg (158 lb) 11/14/2018 12:39 PM STRUCTURAL TEST ENGINEER Height 160 cm (5' 3 ) 11/14/2018 12:39 PM STRUCTURAL TEST ENGINEER Body Mass Index 27.99 11/14/2018 12:39 PM STRUCTURAL TEST ENGINEER documented in this encounter Patient Instructions * Patient Instructions* Humphrey Vanegas MD - 11/14/2018 1:24 PM STRUCTURAL TEST ENGINEER Thank you for entrusting your healthcare to the physicians and other specialists at the [facility] Gastroenterology and Hepatology clinic today. Following your [...] to noon, 1 to 4:30 pm weekdays). ?? Press 1 to make schedule or cancel an appointment ?? Press 2 for pharmacy refills ?? Press 3 to speak with a nurse regarding a change in your condition. ?? Many times your nurse may be busy seeing patients in clinic. In order to meet your needs timely we have implemented a nurse triage line to take your calls. ?? We are closed from 12-1 for lunch ?? After hours please call (hospital main number), ask the grinder set up operator jig to call the gastroenterology fellow corrections corporal. ?? Emergency: call 911 or go to your closest emergency room. ?? We encourage you to use [employer] to send and receive messages and review your test results. Let us know if you need information on signing up for [employer]. More information about us and our services can be found on our websites at [email or web address] and [email or web address] Information about the [facility] of the Liver Center, a osw-paz-aujyfh foundation supporting liver disease research by your doctors and researchers at [facility], can be found at: [email or web address] IMPORTANT 11/14/2018 The following information and instructions are from your visit today: 1. Get your liver ultrasound done in . 2. Contact Dr. Garcia's office to set up an upper endoscopy to look for esophageal varices (swollen veins). 3. Call for lab orders before your next visit. The following are my general recommendations for [...] be found on the website for the [employer] Eating Pyramid. Either search for that on the internet or go to: [email or web address]/nutritionsource/weet-mmrikt-iqu-eat/pyramid/ 3. Avoid fast foods and sugar sweetened [...] that 2 grams of trans-fats daily. 5. Occasional alcohol is okay. No more than one beer or glass of wine daily though. 6. Tylenol (acetaminophen) is okay to take for pain, but you should limit your dose to no more [id number] mg daily. This means that you should [...] medication, report it immediately to your doctor. CTURAL TEST ENGINEER documented in this encounter Progress Notes * Humphrey Vanegas MD - 11/14/2018 1:05 PM CST I saw Ms. Erazo in [facility] at [facility] today for a follow up visit to provide recommendations and/or treatment regarding: Chief Complaint Patient presents with ??? Cirrhosis ??? 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 No confusion/disorientation. Frustrated by memory issues. No GI bleeding. Colonoscopy okay last year. No recent EGD. No more easy bruising. Avoids adding salt to food. No edema. She reports that her level of energy is good. For exercise she has not been doing anything other than stairs at home. Impediments to regular exercise she reports include hip pain. Some back pain. She notes no right upper quadrant abdominal pain. Fast food consumption: not much. Sugar sweetened beverage consumption: none. Current Outpatient Prescriptions Medication Sig ??? aspirin (ASPIRIN) 81 MG tablet Take 81 mg by mouth once daily ??? atenolol (TENORMIN) 50 MG tablet Take 50 mg by mouth once daily ??? Calcium Carbonate-Vitamin D (CALCIUM-CARB 600 + D PO) Take 1 tablet by mouth ??? calcium polycarbophil (FIBERCON) 625 MG tablet Take 625 mg by mouth ??? cycloSPORINE (RESTASIS) 0.05 % ophthalmic suspension Instill 1 drop into both eyes 2 times daily ??? FLUTICASONE PROPIONATE, NASAL, NA Kimball 2 sprays into the nose at bedtime [...] by oral route every day with food No current facility-administered medications for this visit. I have reviewed with Ms. Erazo her Medical, Social and Family history and I have updated and corrected these sections of her [facility] electronic health record based on my discussions with her and/or her family members present at her visit today. She describes her current alcohol consumption as none. Social History Social History Narrative Lives with . Has 2 children and 2 grandchildren. Did [employer] work for [employer]. Review of systems: Per resident's note. On exam today, she appeared alert and anicteric. I reviewed today's vital signs with the patient. Vitals: 11/14/18 1239 BP: 160/70 Pulse: 68 Resp: 14 SpO2: 96% Weight: 71.7 kg (158 lb) Height: 1.6 m (5' 3 ) Body mass index is 27.99 kg/(m^2). Wt Readings from Last 3 Encounters: 11/14/18 71.7 kg (158 lb) 03/14/18 72.6 kg (160 lb) 04/05/17 71.3 kg (157 lb 1.6 oz) Affect good. Seen with . Skin: no jaundice, no spider angiomata. Lungs were clear to auscultation bilaterally. Heart sounds were regular rate and rhythm. There were no murmurs. Abdomen was obese, soft and sl tender in the right upper quadrant. Liver edge palpable: no. Spleen palpable: no. Ascites: none. Hernias: none. Pretibial edema: none. Relevant test results: Recent Labs Component Name 03/08/18 ALKPHOS 82 ALT 71* AST 69* ALB 4.1 POTASSIUM 4.2 CO2 26 BUN 17 HGB 12.6 WBC 3.6* PLT 104* INR 1.1 08/30/18 ALT 66, AST 77, AP 85, t bili 1.3, d bili 0.0, alb 4.1 09/27/18 US: steatosis and nodularity, no mention of focal lesions or ascites Assessment and Plan: 1. CYR cirrhosis 1. Remains well compensated. Elevated bili has been mainly unconjugated in the past so she likely has an element of Gilbert's contributing to her variable total bili elevations (of no consequence). 2. No varices in 2013. We should repeat an EGD at some point now that it's been 5 years. She'd likeDr. Garcia to do it and she will contact him. 3. Up to date on imaging surveillance for hepatocellular carcinoma, will repeat in 6 months. 4. Continue low sodium diet. 5. Will repeat labs before next visit--pt to call. An appointment was scheduled for her to see me in followup in one year. Teaching physician attestation and verification: If a resident of fellow participated in this visit, I attest that I have personally seen and examined this patient with the resident or fellow today and I confirm their assessment and plan. If a student participated in the evaluation of this patient,I verify the medical student???s documentation/findings including history, physical exam and/or medical decision making. I have personally performed a physical exam and medical decision making (or other relevant process) for this service if I have documented these in the note above. To avoid unnecessary typing and thus allow more time for actual patient care, I typically copy my previous assessment and plan from a prior note and update it with current information. If this note contains an assessment and plan copied from one of my prior notes, I attest that it has been updated on this date of service with current information. Address letter to: [facility] [address] [address] CC: Zechariah Garcia MD Orders Placed This Encounter ??? US ABDOMEN LIMITED locally in CTURAL TEST ENGINEER * Lynne Estrada MD - 11/14/2018 12:37 PM CST [facility] Lynne Estrada MD Interval history and subjective concerns: I had the pleasure of meeting Maggie Erazo at the [facility] on 11/14/2018. She was last seen in clinic on 03/14/2018 for CYR cirrhosis. Since last visit, she has intermittent RUQ pain, bloating, soreness. For this, she had an US in September 2018, showing splenomegaly. No significant weight loss since last visit. She does not exerciseregularly. Appetite good. Denies sugar sweetened beverages. Does eat out 1-2 times per week. Deniescurrent alcohol use. Review of Systems: Constitutional: negative for fevers, chills, fatigue and malaise Eyes: negative for visual disturbance ENT: negative for tinnitus, nasal congestion, sore mouth, sore throat, hoarseness and voice change Respiratory: negative for cough, sputum, hemoptysis, dyspnea on exertion or chronic bronchitis Cardiovascular: negative for lower extremity edema, negative for chest pain, chest pressure/discomfort, dyspnea, palpitations, orthopnea, Gastrointestinal: as per HPI Genitourinary:negative for dysuria, nocturia, urinary incontinence, hematuria Hematologic/lymphatic: negative for easy bruising, bleeding, lymphadenopathy and petechiae Musculoskeletal: negative for myalgias, arthralgias and muscle weakness Neurological: negative for headaches, dizziness, vertigo, and seizures Current Outpatient Prescriptions Medication Sig ??? aspirin (ASPIRIN) 81 MG tablet Take 81 mg by mouth once daily ??? atenolol (TENORMIN) 50 MG tablet Take 50 mg by mouth once daily ??? Calcium Carbonate-Vitamin D (CALCIUM-CARB 600 + D PO) Take 1 tablet by mouth ??? calcium polycarbophil (FIBERCON) 625 MG tablet Take 625 mg by mouth ??? cycloSPORINE (RESTASIS) 0.05 % ophthalmic suspension Instill 1 drop into both eyes 2 times daily ??? FLUTICASONE PROPIONATE, NASAL, NA Kimball 2 sprays into the nose at bedtime [...] by oral route every day with food No current facility-administered medications for this visit. Exam: Wt Readings from Last 3 Encounters: 11/14/18 71.7 kg (158 lb) 03/14/18 72.6 kg (160 lb) 04/05/17 71.3 kg (157 lb 1.6 oz) BP 160/70 Pulse 68 Resp 14 Ht 1.6 m (5' 3 ) Wt 71.7 kg (158 lb) SpO2 96% BMI 27.99 kg/m2 General appearance: normal, alert, no distress, appears stated age Eyes: conjunctivae/corneas clear. Nose: Nares normal. Septum midline. Mucosa normal. Throat: Lips, mucosa, and tongue normal. Several fillings and crownds Neck: supple, symmetrical, trachea midline, no adenopathy Lungs: clear to auscultation bilaterally Heart: RRR, normal S1 and S2, no murmur Abdomen: soft, no masses palpable, non-tender, non-distended, bowel sounds normal Extremities: no ulcers, well perfused, no edema Skin: No rashes or lesions, no jaundice Neuro: Appropriate, oriented x 3, no asterixis Relevant Laboratories: 03/08/18 ALT 71, AST 69, AP 82, t bili 1.6, alb 4.1, creat 0.84, INR 1.1, plts 101 08/30/18 cr 0.7, Alb 4.1, Tbili 1.3, dir0.0, ALT 66, AST 77, Alk phos 85, A1c 7.3 ?? Last endoscopies: Colonoscopy 02/15/2018: 3 polyps removed EGD 05/08/2013: No varices of PHG Last imaging: US 09/27/18 steatosis and nodularity, no mention of focal lesions or ascites, splenomegaly, portal vein patent Other pertinent studies: Fibroscan 10/24/2014: 18.5 kPa Assessment: 1. CYR cirrhosis, compensated, MELD 9 in February 2018 --No history of esophageal varices in 2012 EGD --No history ascites 2. DM type 2 3. HTN 4. Hypothyroidism Recommendations: 1. Repeat US for HCC screening in March 2019 2. Due to EGD for variceal screening. 3. Labs prior to next visit. I have asked her to return for a follow up visit in 1 year. Lynne Estrada MD PGY VII Liver Transplant Fellowship Division of Gastroenterology and Hepatology CC: No ref. provider found Karin Cordoba APRN-COMMUNITY HEALTH NURSE STAFF No orders of the defined types were placed in this encounter. 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
--- OUTSIDE RECORDS SUMMARY | 2024-09-25 21:55 | XMS_ITS | Encounter Summary ---
Author Organization [facility] Address [address] [facility] [place] [address] Care Team Providers Care Acid Remover Name Role Phone Isreal Lin Primary Care Provider [phone] Encounter Details Date Type Department Care Team (Latest Contact Info) Description 10/25/2023 Travel Social History Tobacco Use Types Packs/Day Years [...] st Contact Info) Description 10/23/2024 10:00 AM GAS SCRUBBER OPERATOR Office Visit [facility] - GI [address] [place] [address], [place] [phone] Humphrey Esquivel MD [address] [place] [address] [place] [address] documented as of this encounter Goals Goal Patient Goal Type Associated Problems Recent Progress Patient-Stated? Author Medication Management General On track( 024 9:45 AM GAS SCRUBBER OPERATOR) Emre Broussard, RN Note: Expected end date: Interventions: Take all medications as prescribed Let your doctor know right away about any changes in your medications Make sure to request a refill of your medication at least one week prior to your last dose documented as of this encounter Visit Diagnoses Not on filedocumented in this encounter Care Teams Acid Remover Relationship Specialty Start Date End Date Isreal Lin [address] [place] [address] PCP - General Internal Medicine 10/25/23 documented as of this encounter
--- OUTSIDE RECORDS SUMMARY | 2024-09-25 21:55 | XMS_ITS | Encounter Summary ---
Author Organization [facility] Address [address] [facility] [place] [address] Care Team Providers Care Em Physician Name Role Phone Unavailable Primary Care Provider Unavailabl e Encounter Details Date Type Department Care Team (Late st Contact Info) Description 09/15/2012 Hospital Outpatient Visit [facility] Default Department Cecilia Irizarry MD [address] [place] [address] Rd [address] [place] [address] Discharge Disposition: Home or Self Care Social [...] st Contact Info) Description 10/23/2024 10:00 AM FORM CARPENTER Office Visit [facility] - GI [address] [facility], [place] [address] Humphrey Esquivel MD [facility] DIV [place] [address] documented as of this encounter Visit Diagnoses Not on filedocumented in this encounter
--- OUTSIDE RECORDS SUMMARY | 2024-09-25 21:55 | XMS_ITS | Encounter Summary ---
Author Organization [facility] Address [address] [facility] [place] [address] Care Team Providers Care Candy Department Manager Name Role Phone Unavailable Primary Care Provider Unavailabl e Encounter Details Date Type Department Care Team (Latest Contact Info) Description 11/18/2020 Travel Social History Tobacco Use Types Packs/Day [...] COVID-19? No / Unsure 11/18/2020 12:03 PM RESEARCH AND DEVELOPMENT ENGINEER documented as of this encounter Plan of Treatment Upcoming Encounters Date Type Department Care Team (Late st Contact Info) Description 10/23/2024 10:00 AM RESEARCH AND DEVELOPMENT ENGINEER Office Visit [facility] - GI [address] [place] [address], [place] [phone] Humphrey Esquivel MD [address] [place] [address] DIV [place] [address] documented as of this encounter Goals Goal Patient Goal Type Associated Problems Recent Progress Patient-Stated? Author Medication Management General On track( 024 9:45 AM RESEARCH AND DEVELOPMENT ENGINEER) Emre Broussard RN Note: Expected end date: Interventions: Take all medications as prescribed Let your doctor know right away about any changes in your medications Make sure to request a refill of your medication at least one week prior to your last dose documented as of this encounter Visit Diagnoses Not on filedocumented in this encounter
--- OUTSIDE RECORDS SUMMARY | 2024-09-25 21:55 | XMS_ITS | Encounter Summary ---
Author Organization [facility] Address [address] [facility] [place] [address] Care Team Providers Care Assistant Infant Teacher Name Role Phone Karin Cordoba KAVON-TELEPHONE TRIAGE NURSE Primary Care Provider + Reason for Visit * Reason Comments Refill Request Encounter Details Date Type Department Care Team (Late Contact Info) Description 05/08/2023 Refill [facility] - GI [address] [place] [phone] Humphrey Esquivel MD [address] [place] [address] [place] [address] Refill Request Social History Tobacco Use Types [...] (Late Contact Info) Description 10/23/2024 10:00 AM VOICE INTERCEPT TECHNICIAN Office [place] [facility] [place] [address] [place] [phone] Humphrey Esquivel MD [address] [place] [address] documented as of this encounter Goals Goal Patient Goal Type Associated Problems Recent Progress Patient-Stated? Author Medication Management General On track( 024 9:45 AM VOICE INTERCEPT TECHNICIAN) Emre Broussard, RN Note: Expected end date: Interventions: Take all medications as prescribed Let your doctor know right away about any changes in your medications Make sure to request a refill of your medication at least one week prior to your last dose documented as of this encounter Visit Diagnoses Not on filedocumented in this encounter Care Teams Assistant Infant Teacher Relationship Specialty Start Date End Date Karin Cordoba APRN-HILARIO [address] [phone] PCP - General 11/16/22 10/24/23 documented as of this encounter
--- OUTSIDE RECORDS SUMMARY | 2024-09-25 21:55 | XMS_ITS | Encounter Summary ---
Author Organization [facility] Address [address] [facility] [place] [place] [address] Care Team Providers Care Quill Cleaner Name Role Phone Unavailable Primary Care Provider Unavailabl e Reason for Visit * Reason Onset Date Comments Follow-up 08/27/2022 Encounter Details Date Type Department Care Team (Late st Contact Info) Description 08/27/2022 Telephone [facility] - [address] [phone] Diana Horvath RN Follow-up Social History Tobacco Use Types [...] encounter Miscellaneous Notes * Telephone Encounter - Diana Horvath RN - 08/27/2022 9:23 AM CST Patient calls that she has not heard back from her [employer] message. She is requesting a call or [employer] response back Copied message below Dr. Vanegas, Was wondering about meds that is to be given when I have sinus surgery on . Am to take 3 valium tablets 1 hour prior to procedure, also 1 Hydrocodone 1 hour prior to surgery and 1Zofran 1 hour prior to procedure and 2 sprays Afrin in each nostril 30 minutes before surgery. I know I got very sick on [place] when had knee surgery. Also haveing colonoscopy on Sep.10 & wonderedif you want Dr. Garcia to do a throat scope at same time as he done before. Can reach his office at [phone]. Know this is alot of info but I guess I need another opinion about all the drugs. Don't think I need so much Valium. Thanks so much for your help on this. Lexi Erazo EMATICS EDUCATION PROFESSOR documented in this encounter Plan of Treatment Upcoming Encounters Date Type Department Care Team (Late st Contact Info) Description 10/23/2024 10:00 AM MATHEMATICS EDUCATION PROFESSOR Office Visit [facility] - GI [address] [place] [address], [place] [phone] Humphrey Esquivel MD [address] [place] [address] [place] [address] documented as of this encounter Goals Goal Patient Goal Type Associated Problems Recent Progress Patient-Stated? Author Medication Management General On track( 024 9:45 AM MATHEMATICS EDUCATION PROFESSOR) Emre Broussard, RN Note: Expected end date: Interventions: Take all medications as prescribed Let your doctor know right away about any changes in your medications Make sure to request a refill of your medication at least one week prior to your last dose documented as of this encounter Visit Diagnoses Not on filedocumented in this encounter
--- OUTSIDE RECORDS SUMMARY | 2024-09-25 21:55 | XMS_ITS | Encounter Summary ---
Author Organization [facility] Address [address] [facility] [place] [address] Care Team Providers Care Spring Up Supervisor Name Role Phone Unavailable Primary Care Provider Unavailabl e Reason for Visit * Reason Comments Cirrhosis Encounter Details Date Type Department Care Team (Late Contact Info) Description 11/13/2019 Telephone [facility] [address] [place] [address] Bre Reyes RN Cirrhosis Social History Tobacco [...] Miscellaneous Notes * Telephone Encounter - Bre Reyes, RUBEN - 11/13/2019 11:47 AM CST Call received from Krishna to inquire about atenolol. Will change atenolol to nadolol 40 mg daily to get the added benefit of reduced portal pressure in addition to the systemic antihypertensive effect. Pharmacist verbalizes understanding. WRINGER documented in this encounter Plan of Treatment Upcoming Encounters Date Type Department Care Team (Late Contact Info) Description 10/23/2024 10:00 AM CAKE WRINGER Office Visit [facility] - GI [address] [facility], [place] [address] Humphrey Esquivel MD [address] [place] [address] [place] [address] documented as of this encounter Goals Goal Patient Goal Type Associated Problems Recent Progress Patient-Stated? Author Medication Management General On track( 024 9:45 AM CAKE WRINGER) Emre Broussard, RN Note: Expected end date: Interventions: Take all medications as prescribed Let your doctor know right away about any changes in your medications Make sure to request a refill of your medication at least one week prior to your last dose documented as of this encounter Visit Diagnoses Not on filedocumented in this encounter
--- OUTSIDE RECORDS SUMMARY | 2024-09-25 21:55 | XMS_ITS | Encounter Summary ---
Author Organization [facility] Address 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) Procedures US ABDOMEN LIMITED Humphrey Esquivel MD [address] [place] [address] Referral ID Status Reason Start Date Expiration Date V isits Requested Visits Authorized [id number] Pending Review 06/25/2024 06/25/2025 1 1 AND GAS SUPERINTENDENT * Radiology Services (Routine) - Pending Review Specialty Diagnoses / Procedures Referred By Contac t Referred To Contact Diagnoses 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) Procedures US ABDOMEN LIMITED Humphrey Esquivel MD [address] [facility] [place] [address] Referral ID Status Reason Start Date Expiration Date V isits Requested Visits Authorized [id number] Pending Review 10/25/2023 10/24/2024 1 1 AND GAS SUPERINTENDENT Reason for Visit * Reason Comments Cirrhosis MASH (metabolic dysf unction associated steatohepatitis, previously known as COSTA) Encounter Details Date Type Department Care Team (Late st Contact Info) Description 10/25/2023 9:30 AM OIL AND GAS SUPERINTENDENT Office [place] [facility] [place] [address] [place] [address], [place] [address] Humphrey Chapa i, MD [address] [place] [address] [place] [address] Liver cirrhosis secondary to MASH (Primary Dx); Esophageal varices Social History Tobacco [...] Comments Blood Pressure 151/69 10/25/2023 9:34 AM OIL AND GAS SUPERINTENDENT Pulse 79 10/25/2023 9:34 AM OIL AND GAS SUPERINTENDENT Temperature 36.4 ??C (97.6 ??F) 10/25/2023 9:34 AM CS T Respiratory Rate 14 10/25/2023 9:34 AM OIL AND GAS SUPERINTENDENT Oxygen Saturation 100% 10/25/2023 9:34 AM OIL AND GAS SUPERINTENDENT Inhaled Oxygen Concentration - - Weight 68 kg (150 lb) 10/25/2023 9:34 AM OIL AND GAS SUPERINTENDENT Height 160 cm (5' 2.99 ) 10/25/2023 9:34 AM OIL AND GAS SUPERINTENDENT Body Mass Index 26.58 10/25/2023 9:34 AM OIL AND GAS SUPERINTENDENT documented in this encounter Patient Instructions * Patient Instructions* Humphrey Esquivel MD - 10/25/2023 10:23 AM OIL AND GAS SUPERINTENDENT Thank you for entrusting your healthcare to the physicians and other specialists at the [facility] Gastroenterology and Hepatology clinic today. Following [...] take your calls. We are closed from 12- for lunch After hours please call (hospital main number), ask the ingot buggy operator to call the gastroenterology fellow network control technician. Emergency: call 911 or go to your closest emergency room. We encourage you to use [employer] to send and receive messages and review your test results. Let us know if you need information on signing up for [employer]. More information about us and our services can be found on our websites at [email or web address] and [email or web address]://www.[email or web address] systemFaceOn Mobile.DeliveryEdge/mer-zvrwufjx-inlpomfb-[facility] health Information about the [facility], a rps-kcy-hlgdot organization supporting liver disease research by your doctors and researchers at [facility], can be found at: www.[facility].org IMPORTANT 10/25/2023 The following information and instructions are from your visit today: Get blood tests today. Call [facility] to schedule the liver ultrasound soon and again in May. Limit your salt intake to no more than 2000 mg daily. If this doesn't control fluid accumulation, then we may need to start diuretics. The following are my general recommendations for [...] find that it helps to have a employment trainer to provide guidance if you can afford it. 2. Eat healthy foods. Don't diet because just using that word to describe what we eat means that we are depriving ourselves. Just focus on heathy eating in reasonable portion sizes and keep indiscretions to a minimum. Good advice on nutrition can be found on the website for the [place] Healthy Eating Pyramid. Either search for that on the internet or go to: http://www.[facility].[place].edu/nutritionsource/xxfe-lmxvlm-kug-eat/pyramid/ Also, the Mediterranean Diet is a good [...] 5. Be sure to discuss with Dr. Vnaegas if you can have an occasional alcoholic drink. Occasional means 1-2 per week at most. If you have a history of alcohol dependence or abuse, you should not drink any alcohol. 6. Tylenol (acetaminophen) is okay to take for pain, but you should limit your dose to no more [id number] mg daily. This means that you should [...] medication, report it immediately to your doctor. AND GAS SUPERINTENDENT documented in this encounter Progress Notes * Humphrey Esquivel MD - 10/25/2023 9:52 AM CST I saw Ms. Erazo in Liver Clinic at [facility] today for follow up visit regarding: Chief Complaint Patient presents with ??? 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 Quite a bit of right upper quadrant pain last night under right costal margin. Better today. Had kirk in the past. Frequent sinus infections, frequent epistaxis both sides. Surgery being considered (ENT is Dr. Khan at [facility]). She wants to see her combination machine tool operator first. No confusion/disorientation. No GI bleeding. Compliant with nadolol. No pedal edema but she does note increased abdominal girth at times, variable. She is no particularly adherent with dietary sodium restriction. She reports that her level of energy is not great. Easily fatigued. Entertaining for Thanksgiving was tough. Sinus issues too. Seen in local ED about that time with concern about stroke, CT showed old stroke. For exercise she has been doing home chores. No walks/gym. Lots of stairs at home. Impediments to regular exercise she reports include hip/knee pain, easily fatigued. Fast food consumption: not much. Sugar sweetened [...] into both eyes 2 times daily ??? ferrous sulfate 325 (65 FE) MG tablet Take 1 (one) tablet by mouth every 2 days ??? levothyroxine (SYNTHROID) 125 MCG tablet Take [...] 1 (one) tablet by mouth at bedtime (Patient not taking: Reported on 10/25/2023) ??? multivitamin (OPURITY) CHEW tablet take 1 tablet by oral route every day with food ??? nadolol (Corgard) 40 MG tablet Take 1 tablet by mouth once daily ??? omeprazole (PRILOSEC) 20 MG capsule Take 1 (one) capsule by mouth daily before breakfast ??? Pediatric Hofxstdw-Luyomwnt-C (COMPLETE MULTI-VITAMIN PO) Take by mouth once daily No current facility-administered medications for this visit. I have reviewed with Ms. Erazo her Medical, Social and Family history and I have updated and corrected these sections of her [facility] electronic health record based on my discussions with her and/or her family members present at her visit today. She describes her current alcohol consumption as none. Social History Social History Narrative Lives with . Has 2 children and 2 grandchildren. 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 Review of systems: Chest pain: none. Shortness of breath: none. Dyspnea on exertion: stairs. Snoring at night: none. Nausea and vomiting: some nausea, poor appetite, early satiety. Reflux or GERD symptoms: none on PPI. Constipation or diarrhea: some diarrhea. Averages about 2-5 BMs daily, very soft, not watery. On exam today, she appeared alert and anicteric. I reviewed today's vital signs with the patient. Vitals: 10/25/23 0934 BP: 151/69 Pulse: 79 Resp: 14 Temp: 97.6 ??F (36.4 ??C) SpO2: 100% Weight: 68 kg (150 lb) Height: 1.6 m (5' 2.99 ) Body mass index is 26.58 kg/m??. Wt Readings from Last 3 Encounters: 10/25/23 68 kg (150 lb) 11/16/22 68 kg (150 lb) 11/17/21 69.9 kg (154 lb) Affect okay. Seen with . Skin: no spider angiomata. Lungs were clear to auscultation bilaterally. Heart sounds were regular rate and rhythm. There were no murmurs. Abdomen was soft and tender in right upper quadrant below right costal margin. Liver edge palpable: no. Spleen palpable: no. Ascites: none. Hernias: none. Pretibial edema: none. Relevant test results: Recent Labs Component Name 04/12/23 1131 11/02/22 0957 11/10/21 0000 11/18/20 1229 08/27/20 0000 11/13/19 0834 03/08/18 0000 03/30/16 0853 10/01/14 1535 TBIL 2.3* 1.7* 1.40 - - - - - - ALKPHOS 82 82 81 71 - 72 - 65 60 ALT 48* 34 36 31 - 41 - 48* 65* AST 65* 54* 54 38* - 43* - 41* 57* SODIUM 139 137 137 - - - - - - POTASSIUM 3.8 3.8 4.0 3.8 - 3.9 - - 3.9 CO2 30 28 28 28 - 24 - 23 27 CREATININE - - - 0.8 - 0.8 - 0.92 1.0 BUN 17 14 19 15 - 15 - 15 19 HGB 11.8* 10.8* 11.7 11.8* - 12.9 - 13.1 14.0 WBC 2.8* 3.4* 3.1 3.3* - 3.0* - 4.1 5.9 PLTCOUNT - - - 81* - 87* - - 169 INR 1.1 1.2 1.0 1.1 - 1.1 - 1.0 1.0 - = values in this interval not displayed. No recent LFTs available. 10/18/23 plts 76, INR 1.13 08/05/23 US: nodular liver, no mention of focal lesions, patent PV, trace ascites Assessment and Plan: 1. COSTA cirrhosis 1. Need to repeat LFTs, especially with worsened right upper quadrant pain recently. Elevated bili has been mainly unconjugated in the past so she likely has an element of Gilbert's contributing to her variable total bili elevations (of no consequence). 2. Will also recheck a liver US this month and again in April/May. 3. Specific recommendations were provided regarding diet and exercise including the avoidance of sugar sweetened beverages 2. Ascites on US 1. Will see how it looks on upcoming US. 2. Dietary sodium restriction encouraged. 3. Add spironolactone 25-50 mg/d for persistent symptoms, add in furosemide if needed if the K goesup. 3. Esophageal varices in 2018 and again in 2021 per pt 1. Continue nadolol. 2. Repeat EGD per Dr. Garcia. An appointment was scheduled for her to see me in followup in one year. Coding comment: this visit required 28 minutes, of which >50% was spent directly counseling the patient and/or family member(s) on their diagnosis, prognosis, and treatment options as outlined in the assessment and plan above as well as the written instructions in the after visit summary provided to the patient. Letter: Isreal Lin MD Orders Placed This Encounter ??? US ABDOMEN LIMITED ??? US ABDOMEN LIMITED ??? CBC WITH DIFFERENTIAL ??? COMPREHENSIVE METABOLIC PANEL ??? PT-INR [facility] ??? BILIRUBIN DIRECT ??? ALPHA FETOPROTEIN BLOOD TUMOR MARKER ??? TRANSFERRIN ??? IRON BLOOD [facility] labs today. US [facility] now and 7 months. Coding Rationale New or est? Established Patient Highest problem complexity: 2 or more stable chronic illnesses Data review: Ordering of test(s): 2 unique test(s) ordered Highest level of risk: Moderate Suggested code: 22395 AND GAS SUPERINTENDENT documented in this encounter Plan of Treatment Upcoming Encounters Date Type Department Care Team (Late st Contact Info) Description 10/23/2024 10:00 AM OIL AND GAS SUPERINTENDENT Office Visit [facility] [address] [facility], [place] [address] Humphrey Esquivel MD [address] [place] [address] Scheduled Orders Name Type Priority Associated Diagnoses Orde r Schedule US ABDOMEN LIMITED Imaging Routine Liver cirrhosis secondary to MASH Expected: 10/25/2023 (Approximate), Expires: 10/24/2024 US ABDOMEN LIMITED Imaging Routine Liver cirrhosis secondary to MASH Expected: 06/25/2024 (Approximate), Expires: 10/24/2024 documented as of this encounter Goals Goal Patient Goal Type Associated Problems Recent Progress Patient-Stated? Author Medication Management General On track( 024 9:45 AM OIL AND GAS SUPERINTENDENT) Emre Broussard RN Note: Expected end date: Interventions: Take all medications as prescribed Let your doctor know right away about any changes in your medications Make sure to request a refill of your medication at least one week prior to your last dose documented as of this encounter Results * IRON BLOOD (10/25/2023 11:42 AM OIL AND GAS SUPERINTENDENT) Iron 86 40 - 150 ug/dL 10/25/2023 12:33 PM OIL AND GAS SUPERINTENDENT [facility] Blood BLOOD SPECIMEN / Unknown Lab Venipuncture / Unknown 10/25/2023 11:42 AM OIL AND GAS SUPERINTENDENT 10/25/2023 11:58 AM OIL AND GAS SUPERINTENDENT Humphrey Esquivel MD LAB - CHEM ISTRY ORDERABLES [facility] [address] [place] [address], [facility] [phone] * TRANSFERRIN (10/25/2023 11:42 AM OIL AND GAS SUPERINTENDENT) Transferrin 274 174 - 382 mg/dL 10/25/2023 12:33 PM OIL AND GAS SUPERINTENDENT [facility] Blood BLOOD SPECIMEN / Unknown Lab Venipuncture / Unknown 10/25/2023 11:42 AM OIL AND GAS SUPERINTENDENT 10/25/2023 11:58 AM OIL AND GAS SUPERINTENDENT Humphrey Esquivel MD LAB - CHEM ISTRY ORDERABLES Performing Organization Address City/[facility]/ZIP Co de Phone Number [address] [address], [facility] [phone] * ALPHA FETOPROTEIN BLOOD TUMOR MARKER (10/25/2023 11:42 AM OIL AND GAS SUPERINTENDENT) Alpha-Fetoprote in Tumor Marker 3.0 <=8.3 ng/mL 10/25/2023 12:51 PM OIL AND GAS SUPERINTENDENT [facility] Comment: AFP values will vary depending on testing procedure used. Results are not comparable across different methods. AFP values obtained by [facility] using an Stunable Alinity Immunoassay. Blood BLOOD SPECIMEN / Unknown Lab Venipuncture / Unknown 10/25/2023 11:42 AM OIL AND GAS SUPERINTENDENT 10/25/2023 12:03 PM OIL AND GAS SUPERINTENDENT Humphrey Esquivel MD LAB - CHEM ISTRY ORDERABLES Performing Organization Address [facility] Co de Phone Number [address] [address], [place] [phone] * (ABNORMAL) BILIRUBIN DIRECT (10/25/2023 11:42 AM OIL AND GAS SUPERINTENDENT) Bilirubin Conjugated 0.6(H) 0.1 - 0.5 mg/dL 10/25/2023 12:31 PM OIL AND GAS SUPERINTENDENT [facility] Blood BLOOD SPECIMEN / Unknown Lab Venipuncture / Unknown 10/25/2023 11:42 AM OIL AND GAS SUPERINTENDENT 10/25/2023 12:01 PM OIL AND GAS SUPERINTENDENT Humphrey Esquivel MD LAB - CHEM ISTRY ORDERABLES Performing Organization Address City/[facility]/ZIP Co de Phone Number [address] [address], [place] [phone] * PT-INR [facility] (10/25/2023 11:42 AM OIL AND GAS SUPERINTENDENT) PT 14.8 12.1 - 14.8 Seconds 10/25/2023 12:28 PM [facility] INR 1.2 See Comment 10/25/2023 12:28 PM [facility] Comment:The suggested therap eutic range for standard coumadin (warfarin) therapy is an INR of 2.0-3.0. For high-risk patients (Mechanical Mitral Valve Prosthesis, etc.), the suggested prophylactic therapeutic range is an INR of 2.5-3.5. Blood BLOOD SPECIMEN / Unknown Lab Venipuncture / Unknown 10/25/2023 11:42 AM OIL AND GAS SUPERINTENDENT 10/25/2023 11:57 AM [facility] Humphrey Esquivel MD LAB - COAG ULATION ORDERABLES [facility] [address] [place] [address], [facility] [phone] * (ABNORMAL) COMPREHENSIVE METABOLIC PANEL (10/25/2023 11:42 AM [facility]) BUN 12 7 - 26 mg/dL 10/25/2023 12:31 PM [facility] Creatinine 0.74 0.56 - 0.96 mg/dL 10/25/2023 12:31 PM [facility] Sodium 144 136 - 145 mmol/L 10/25/2023 12:31 PM [facility] Potassium 4.1 3.5 - 4.5 mmol/L 10/25/2023 12:31 PM [facility] Chloride 108(H) 98 - 107 mmol/L 10/25/2023 12:31 PM [facility] CO2 27 22 - 29 mmol/L 10/25/2023 12:31 PM [facility] Glucose 130(H) 70 - 115 mg/dL 10/25/2023 12:31 PM [facility] Calcium 8.9 8.4 - 10.2 mg/dL 10/25/2023 12:31 PM [facility] Protein Total 6.8 6.0 - 8.3 g/dL 10/25/2023 12:31 PM [facility] Albumin 3.4 3.4 - 5.0 g/dL 10/25/2023 12:31 PM [facility] Bilirubin Total 2.1(H) 0.2 - 1.2 mg/dL 10/25/2023 12:31 PM [facility] Alkaline Phosphatase 88 40 - 150 U/L 10/25/2023 12:31 PM [facility] ALT 33 5 - 55 U/L 10/25/2023 12:31 PM [facility] AST 46(H) 5 - 34 U/L 10/25/2023 12:31 PM [facility] Anion Gap 9 6 - 16 10/25/2023 12:31 PM [facility] BUN/Creatinine Ratio 16 7 - 23 10/25/2023 12:31 PM [facility] Osmolality Calculated 300(H) 275 - 295 mOsm/kg 10/25/2023 12:31 PM [facility] Albumin/Globulin Ratio 1.0(L) 1.1 - 2.3 10/25/2023 12:31 PM [facility] eGFR by CKD-EPI 81(L) >=90 mL/min/1.7 3 m2 10/25/2023 12:31 PM [facility] Blood BLOOD SPECIMEN / Unknown Lab Venipuncture / Unknown 10/25/2023 11:42 AM OIL AND GAS SUPERINTENDENT 10/25/2023 12:01 PM [facility] Humphrey Esquivel MD LAB - CHEM ISTRY ORDERABLES [facility] [address] [place] [address], [facility] [phone] * (ABNORMAL) CBC WITH DIFFERENTIAL (10/25/2023 11:42 AM [facility]) WBC 3.3(L) 4.0 - 10.7 x10E9/L 10/25/2023 12:43 PM [facility] RBC Count 3.66(L) 3.90 - 5.20 x10E12/L 10/25/2023 12:43 PM [facility] Hemoglobin 11.7(L) 11.9 - 15.8 g/dL 10/25/2023 12:43 PM [facility] Hematocrit 33.9(L) 34.8 - 46.1 % 10/25/2023 12:43 PM [facility] MCV 92.6 80.0 - 98.0 fL 10/25/2023 12:43 PM [facility] MCH 32.0 26.7 - 33.6 pg 10/25/2023 12:43 PM [facility] MCHC 34.5 31.7 - 36.3 g/dL 10/25/2023 12:43 PM [facility] RDW-CV 13.8 11.3 - 14.8 % 10/25/2023 12:43 PM [facility] Platelet Count 80(L) 150 - 420 x10E9/L 10/25/2023 12:43 PM [facility] MPV 10.5 7.8 - 11.4 fL 10/25/2023 12:43 PM [facility] Neutrophil % 62.7 41.0 - 74.0 % 10/25/2023 12:43 PM [facility] Lymphocyte % 24.3 17.0 - 47.0 % 10/25/2023 12:43 PM [facility] Monocyte % 8.2 3.0 - 11.0 % 10/25/2023 12:43 PM [facility] Eosinophil % 3.3 0.0 - 7.0 % 10/25/2023 12:43 PM [facility] Basophil % 0.9 0.0 - 1.6 % 10/25/2023 12:43 PM [facility] Immature Granulocytes % 0.6 0.0 - 1.0 % 10/25/2023 12:43 PM [facility] Neutrophil Absolute 2.06 1.60 - 7.50 x10E9/L 10/25/2023 12:43 PM [facility] Lymphocyte Absolute 0.80(L) 1.00 - 4.40 x10E9/L 10/25/2023 12:43 PM [facility] Monocyte Absolute 0.27 0.15 - 1.00 x10E9/L 10/25/2023 12:43 PM OIL AND GAS SUPERINTENDENT [facility] Eosinophil Absolute 0.11 0.00 - 0.60 x10E9/L 10/25/2023 12:43 PM OIL AND GAS SUPERINTENDENT [facility] Basophil Absolute 0.03 0.00 - 0.13 x10E9/L 10/25/2023 12:43 PM OIL AND GAS SUPERINTENDENT [facility] Blood BLOOD SPECIMEN / Unknown Lab Venipuncture / Unknown 10/25/2023 11:42 AM OIL AND GAS SUPERINTENDENT 10/25/2023 12:03 PM OIL AND GAS SUPERINTENDENT Humphrey Esquivel MD LAB - RIKKI TOLOGY ORDERABLES [facility] [address] [place] [address], [facility] [phone] documented in this encounter Visit Diagnoses Diagnosis Liver cirrhosis secondary to MASH- Primary Other chronic nonalcoholic liver disease Esophageal varices Esophageal varices without mention of bleeding in diseases classified elsewhere documented in this encounter Care Teams Veterans Adviser Relationship Specialty Start Date End Date Isreal Lin [address] [address] PCP - General Internal Medicine 10/25/23 documented as of this encounter
--- OUTSIDE RECORDS SUMMARY | 2024-09-25 21:55 | XMS_ITS | Encounter Summary ---
Author Organization [facility] Address [address] [facility] [place] [address] Care Team Providers Care Shield Runner Name Role Phone Isreal Lin Primary Care Provider Encounter Details Date Type Department Care Team (Late Contact Info) Description 09/13/2024 Lab Requisition [facility] - DermPath Lab [address] [place] [phone] Darcie Hernandez DO [address] [facility] 3 [place] [address] Social History Tobacco Use Types Packs/Day Years [...] (Late Contact Info) Description 10/23/2024 10:00 AM BOILER REPAIRMAN Office Visit [facility] - GI [address] [place] [phone] Humphrey Esquivel MD [address] [facility] 2L [place] [address] documented as of this encounter Goals Goal Patient Goal Type Associated Problems Recent Progress Patient-Stated? Author Medication Management General On track( 024 9:45 AM BOILER REPAIRMAN) Emre Broussard RN Note: Expected end date: Interventions: Take all medications as prescribed Let your doctor know right away about any changes in your medications Make sure to request a refill of your medication at least one week prior to your last dose documented as of this encounter Procedures Procedure Name Priority Date/Time Associated Diagnosis Comments DERMATOPATHOLOGY Routine 09/13/2024 9:03 AM BOILER REPAIRMAN documented in this encounter Results * DERMATOPATHOLOGY (09/13/2024 9:03 AM BOILER REPAIRMAN) Case Report Dermatopathology Report ? Case: [id number] ? Authorizing Provider: ??Darcie Hernandez, DO ?? Collected: ? 09/13/2024 09:03 AM ? Ordering Location: ? [facility] - ??Received: ?09/13/2024 04:19 PM ? DermPath Lab ? Pathologist: ? Any Brown MD ? Specimen: ?Skin, right superior shoulder ? 4:05 PM [facility] DERMATOPATHOLOGY LABORATORY Final Diagnosis Specimen A. SKIN, right superior shoulder: BENIGN VERRUCOUS KERATOSIS, INFLAMED (L82.1) 4:05 PM [facility] DERMATOPATHOLOGY LABORATORY Clinical History R/O NMSC 4:05 PM [facility] DERMATOPATHOLOGY LABORATORY Gross Description Specimen A: Received is one formalin filled container labeled with the patient's name and designated right superior shoulder. The specimen consists of a shave biopsy measuring 4x4x4 mm. Jar 0. 4:05 PM [facility] DERMATOPATHOLOGY LABORATORY Microscopic Description Specimen A. SKIN, right superior shoulder: Sections show hyperkeratosis, papillomatosis, hypergranulosis, and acanthosis. Inflammatory cells are present within the dermis. These histological findings can be seen in a verruca vulgaris or a seborrheic keratosis. 4:05 PM [facility] DERMATOPATHOLOGY LABORATORY Disclaimer An external and internal positive and negative controls are appropriate for the histochemical, immunohistochemical and immunofluorescence stain(s) in this case (if any), except where stated explicitly. The performance characteristics of the stain(s) cited in this report were developed and its performance characteristic determined by the Dermatopathology Laboratory at [facility], directed by Dr. Javier Carias. These tests need not be, and therefore are not, approved by the [place] Food and Drug Administration. The tests are used for clinical purposes. Billing Codes Specimen Charges Stain Charges 36848 1 4:05 PM [facility] DERMATOPATHOLOGY LABORATORY Embedded Images 4:05 PM [facility] DERMATOPATHOLOGY LABORATORY Pathology/Cytolo gy TISSUE SPECIMEN FROM SKIN / Unknown 09/13/2024 9:03 AM BOILER REPAIRMAN 09/13/2024 4:19 PM BOILER REPAIRMAN Darcie Hernandez DO LAB - PATHOLOGY/C YTOLOGY ORDERABLES DERMATOPATHOLOGY LABORATORY [facility] - Department of Dermatology [facility] Medicine [address] [place] [address], [address] Floor [address] [phone] documented in this encounter Visit Diagnoses Not on filedocumented in this encounter Care Teams Shield Runner Relationship Specialty Start Date End Date Isreal Lin [address] [place] [address] PCP - General Internal Medicine 10/25/23 documented as of this encounter
--- OUTSIDE RECORDS SUMMARY | 2024-09-25 21:55 | XMS_ITS | Referral Summary ---
Author Organization [facility] Address [address] [place] [address] Care Team Providers Care Restaurant Crew Name Role Phone Chad Linin Primary Care Provider [phone] Source Comments [facility],non-owned Affiliates and Associated Physician Practices is amultiple site organization consisting of ambulatory clinics and hospital sitesin [place], [place], [place] and [place]. This disclosure is being madepursuant to the Care Everywhere program and may not contain all information available regarding this patient. Last updated 18.[facility] Encounters Date Type Department Care Team Description 09/13/2024 Lab Requisition [facility] - DermPath Lab [address] [place] [phone] Darcie Hernandez DO 08/14/2024 Telephone [facility] - GI [address] [facility], [place] [phone] Humphrey Esquivel MD Results (US) 07/26/2024 Refill [facility] - GI [address] [facility], [place] [phone] Humphrey Esquivel MD Refill Request from Last 3 Months Allergies Active Allergy Reactions Criticality Noted Date [...] by mouth daily before breakfast Active Pediatric Vckdnwmw-Knlajgul-R (COMPLETE MULTI-VITAMIN PO) Take by mouth once [...] came back positive for invasive ductal carcinoma ER/WI positive HER2/duncan negative and Ki-67 of 10%. [...] (08/14/2024): Presumed COSTA. No biopsy. 09/20/12 [place] ([place]): fatty liver, no focal lesions 05/08/13 EGD [...] PV, no mention of ascites 08/05/24 [place] ([place]): nodular liver, patent PV but flow suggests [...] came back positive for invasive ductal carcinoma ER/WI positive HER2/duncan negative and Ki-67 of 10%. Status post right-sided lumpectomy done on June 28, 2024. Pathology showed invasive ductal carcinoma 0.5 cm with negative margins. Type 2 diabetes mellitus 04/21/2012 Immunizations Name Administration Dates Next Due TDAP (7yrs+) 10/11/2010 Social History Tobacco Use Types Packs/Day Years [...] Comments Blood Pressure 151/69 10/25/2023 9:34 AM COOK MORNING Pulse 79 10/25/2023 9:34 AM COOK MORNING Temperature 36.4 ??C (97.6 ??F) 10/25/2023 9:34 AM CS T Respiratory Rate 14 10/25/2023 9:34 AM [facility] Oxygen Saturation 100% 10/25/2023 9:34 AM [facility] Inhaled Oxygen Concentration - - Weight 68 kg (150 lb) 10/25/2023 9:34 AM [facility] Height 160 cm (5' 2.99 ) 10/25/2023 9:34 AM [facility] Body Mass Index 26.58 10/25/2023 9:34 AM [facility] Plan of Treatment Upcoming Encounters Date Type Department Care Team (Late st Contact Info) Description 10/23/2024 10:00 AM COOK MORNING Office Visit [facility] - GI [address] [place] [address], [place] [phone] Humphrey Esquivel MD [address] [place] [address] [place] [address] Goals Goal Patient Goal Type Associated Problems Recent Progress Patient-Stated? Author Medication Management General On track( 024 9:45 AM COOK MORNING) No Emre Paez, RN Note: Expected end date: Interventions: Take all medications as prescribed Let your doctor know right away about any changes in your medications Make sure to request a refill of your medication at least one week prior to your last dose Procedures Procedure Name Priority Date/Time Associated Diagnosis Comments DERMATOPATHOLOGY Routine 09/13/2024 9:03 AM [facility] IMAGING/RADIOLOGY/XRAY RESULTS ORDER 08/05/2024 COMPREHENSIVE METABOLIC PANEL Routine 10/25/2023 11:42 AM [facility] Liver cirrhosis secondary to MASH MICROALB/CREAT RATIO URINE (EXTERNAL RESULT ENTRY) Routine 08/27/2020 HEMOGLOBIN A1C (EXTERNAL RESULT ENTRY) Routine 08/27/2020 from Last 3 Months or Most Recently Relevant to Health Maintenance Results * DERMATOPATHOLOGY (09/13/2024 9:03 AM COOK MORNING) Pathologist [facility] Case Report Dermatopathology Report ? Case: [id number] ? Authorizing Provider: ??Darcie Hernandez, DO ?? Collected: ? 09/13/2024 09:03 AM ? Ordering Location: ? [facility] - ??Received: ?09/13/2024 04:19 PM ? DermPath Lab ? Pathologist: ? Any Brown MD ? Specimen: ?Skin, right superior shoulder ? 4 4:05 PM [facility] DERMATOPATHOLOGY LABORATORY Final Diagnosis Specimen A. SKIN, right superior shoulder: BENIGN VERRUCOUS KERATOSIS, INFLAMED (L82.1) 4 4:05 PM [facility] DERMATOPATHOLOGY LABORATORY Clinical History R/O NMSC 4 4:05 PM [facility] DERMATOPATHOLOGY LABORATORY Gross Description Specimen A: Received is one formalin filled container labeled with the patient's name and designated right superior shoulder. The specimen consists of a shave biopsy measuring 4x4x4 mm. Jar 0. 4:05 PM [facility] DERMATOPATHOLOGY LABORATORY Microscopic Description Specimen A. SKIN, right superior shoulder: Sections show hyperkeratosis, papillomatosis, hypergranulosis, and acanthosis. Inflammatory cells are present within the dermis. These histological findings can be seen in a verruca vulgaris or a seborrheic keratosis. 4:05 PM [facility] DERMATOPATHOLOGY LABORATORY Disclaimer An external and internal positive and negative controls are appropriate for the histochemical, immunohistochemical and immunofluorescence stain(s) in this case (if any), except where stated explicitly. The performance characteristics of the stain(s) cited in this report were developed and its performance characteristic determined by the Dermatopathology Laboratory at [facility], directed by Dr. Javier Carias. These tests need not be, and therefore are not, approved by the [place] Food and Drug Administration. The tests are used for clinical purposes. Billing Codes Specimen Charges Stain Charges 48302 1 4 4:05 PM [facility] DERMATOPATHOLOGY LABORATORY Embedded Images 4 4:05 PM [facility] DERMATOPATHOLOGY LABORATORY Pathology/Cytolo gy TISSUE SPECIMEN FROM SKIN / Unknown 09/13/2024 9:03 AM COOK MORNING 09/13/2024 4:19 PM COOK [facility]ING Darcie Hernandez DO LAB - PATHOLOGY/C YTOLOGY ORDERABLES DERMATOPATHOLOGY LABORATORY [facility] - Department of Dermatology [address], [address] [phone] * IMAGING RADIOLOGY XRAY RESULTS ORDER (08/05/2024) Anatomical Region Laterality Modality Other 08/05/2024 Narrative 08/05/2024 Ordered by an unspecified provider. Scanned Document IMAGING * (ABNORMAL) COMPREHENSIVE METABOLIC PANEL (10/25/2023 11:42 AM [facility]) BUN 12 7 - 26 mg/dL 10/25/2023 12:31 PM [facility] Creatinine 0.74 0.56 - 0.96 mg/dL 10/25/2023 12:31 PM [facility] Sodium 144 136 - 145 mmol/L 10/25/2023 12:31 PM [facility] Potassium 4.1 3.5 - 4.5 mmol/L 10/25/2023 12:31 PM [facility] Chloride 108(H) 98 - 107 mmol/L 10/25/2023 12:31 PM [facility] CO2 27 22 - 29 mmol/L 10/25/2023 12:31 PM [facility] Glucose 130(H) 70 - 115 mg/dL 10/25/2023 12:31 PM [facility] Calcium 8.9 8.4 - 10.2 mg/dL 10/25/2023 12:31 PM [facility] Protein Total 6.8 6.0 - 8.3 g/dL 10/25/2023 12:31 PM [facility] Albumin 3.4 3.4 - 5.0 g/dL 10/25/2023 12:31 PM [facility] Bilirubin Total 2.1(H) 0.2 - 1.2 mg/dL 10/25/2023 12:31 PM [facility] Alkaline Phosphatase 88 40 - 150 U/L 10/25/2023 12:31 PM [facility] ALT 33 5 - 55 U/L 10/25/2023 12:31 PM [facility] AST 46(H) 5 - 34 U/L 10/25/2023 12:31 PM [facility] Anion Gap 9 6 - 16 10/25/2023 12:31 PM [facility] BUN/Creatinine Ratio 16 7 - 23 10/25/2023 12:31 PM [facility] Osmolality Calculated 300(H) 275 - 295 mOsm/kg 10/25/2023 12:31 PM [facility] Albumin/Globulin Ratio 1.0(L) 1.1 - 2.3 10/25/2023 12:31 PM [facility] eGFR by CKD-EPI 81(L) >=90 mL/min/1.7 3 m2 10/25/2023 12:31 PM [facility] Blood BLOOD SPECIMEN / Unknown Lab Venipuncture / Unknown 10/25/2023 11:42 AM [facility] 10/25/2023 12:01 PM [facility] Humphrey Esquivel MD LAB - CHEM ISTRY ORDERABLES [facility] [address] [place] [address], [facility] [phone] * MICROALB/CREAT RATIO URINE (EXTERNAL RESULT ENTRY) [...] Recently Relevant to Health Maintenance Care Teams Restaurant Crew Relationship Specialty Start Date End Date Isreal Lin [address] [place] [address] PCP - General Internal Medicine 10/25/23
--- OUTSIDE RECORDS SUMMARY | 2024-09-25 21:55 | XMS_ITS | Encounter Summary ---
Author Organization [facility] Address [address] [facility] [place] [address] Care Team Providers Care Cement Finisher Helper Name Role Phone Unavailable Primary Care Provider Unavailabl e Reason for Visit * Reason Comments Cyr cirrhosis Encounter Details Date Type Department Care Team (Late st Contact Info) Description 03/14/2018 12:40 PM CDT Office Visit [facility] - GI [address] [place] [address], [place] [phone] Humphrey Chapa i, MD [address] [place] [address] [place] [address] 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) (Primary [...] Sign Reading Time Taken Comments Blood Pressure 145/65 03/14/2018 1:08 PM CDT Pulse 71 03/14/2018 1:08 PM CDT Temperature 36.9 ??C (98.5 ??F) 03/14/2018 1:08 PM CD T Respiratory Rate - - Oxygen Saturation 97% 03/14/2018 1:08 PM CDT Inhaled Oxygen Concentration - - Weight 72.6 kg (160 lb) 03/14/2018 1:08 PM CDT Height 160 cm (5' 3 ) 03/14/2018 1:08 PM CDT Body Mass Index 28.34 03/14/2018 1:08 PM CDT documented in this encounter Patient Instructions * Patient Instructions* Humphrey Vanegas MD - 03/14/2018 2:36 PM CDT Thank you for entrusting your healthcare to the physicians and other specialists at the [facility] Gastroenterology and Hepatology clinic today. Following [...] please call (hospital main number), ask the glass ribbon machine operator to call the gastroenterology fellow tongue binder. ?? Emergency: call 911 or go to your closest emergency room. ?? We encourage you to use [employer] to send and receive messages and review your test results. Let us know if you need information on signing up for [employer]. More information about us and our services can be found on our websites at [email or web address] and [email or web address] Information about the [facility] the Liver [place], a cgn-bao-fyfjec foundation supporting liver disease research by your doctors and researchers at [facility], can be found at: [email or web address] IMPORTANT 03/14/2018 The following information and instructions are from your visit today: 1. Get your liver ultrasound this month at [facility]. The following are my general recommendations for [...] be found on the website for the [employer] Healthy Eating Pyramid. Either search for that on the internet or go to: [email or web address]/dbih-wuqsuv-tfb-eat/pyramid/ 3. Avoid fast foods and sugar sweetened [...] should limit your dose to no more [id number] mg daily. This means that you should [...] medication, report it immediately to your doctor. documented in this encounter Progress Notes * Humphrey Vanegas MD - 03/14/2018 2:13 PM CDT I saw Ms. Erazo in [facility] today for follow up visit regarding: Chief Complaint Patient presents with ??? Cyr cirrhosis Patient Active Problem List Diagnosis ??? Osteoarthritis ??? Hypothyroidism ??? 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 Colon adenomas ??? Hypertension ??? Type 2 diabetes mellitus ??? Gilbert's syndrome Interim history: Notes more easy bruising. No confusion/disorientation or no more than usual. Avoids extra salt in food. No GI bleeding. Had recent colonoscopy but no EGD. She reports that her level of energy is okay. For exercise she has not been doing much in general. 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 She notes no right upper quadrant abdominal pain. Fast food consumption: rare. Sugar sweetened beverage consumption: none. Current Outpatient Prescriptions Medication Sig ??? losartan (COZAAR) 50 MG tablet Take 50 mg by mouth once daily ??? metFORMIN (GLUCOPHAGE) 500 MG tablet 500 mg 2 times daily with morning and evening meal ??? Calcium Carbonate-Vitamin D (CALCIUM-CARB 600 + D PO) Take 1 tablet by mouth ??? multivitamin (OPURITY) CHEW tablet take 1 tablet by oral route every day with food ??? Stone-3 Fatty Acids (FISH OIL BURP-LESS) 1000 MG Take 1 capsule by mouth once daily ??? calcium polycarbophil (FIBERCON) 625 MG tablet Take 625 mg by mouth ??? cholestyramine (QUESTRAN) 4 G packet ??? atenolol (TENORMIN) 50 MG tablet Take 50 mg by mouth once daily ??? aspirin (ASPIRIN) 81 MG tablet Take 81 mg by mouth once daily ??? cycloSPORINE (RESTASIS) 0.05 % ophthalmic suspension Instill 1 drop into both eyes 2 times daily ??? levothyroxine (SYNTHROID) 125 MCG tablet Take 125 mcg by mouth daily before breakfast No current facility-administered medications for this visit. I have reviewed with Ms. Erazo her Medical, Social and Family history and I have updated and corrected these sections of her [facility] electronic health record based on my discussions with her and/or her family members present at her visit today. She describes her current alcohol consumption as none. Social History Social History Narrative Lives with . Has 2 children and 2 grandchildren. 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 Review of systems: Chest pain: none lately. Shortness of breath: none. Dyspnea on exertion: a bit on stairs. Snoring at night: yes, no sleep study. Nausea and vomiting: none. Reflux or GERD symptoms: none. Constipation or diarrhea: none. Pruritus: none or rare. New red skin lesions below left knee x 2 weeks, improving. On exam today, she appeared alert and anicteric. I reviewed today's vital signs with the patient. Vitals: 03/14/18 1308 BP: 145/65 Pulse: 71 Temp: 98.5 ??F (36.9 ??C) SpO2: 97% Weight: 72.6 kg (160 lb) Body mass index is 28.34 kg/(m^2). Wt Readings from Last 3 Encounters: 03/14/18 72.6 kg (160 lb) 04/05/17 71.3 kg (157 lb 1.6 oz) 04/06/16 71.3 kg (157 lb 3.2 oz) Affect good. Seen with . Skin: no spider angiomata. Red punctate lesions x 4 below left knee. Lungs were clear to auscultation bilaterally. Heart sounds were regular rate and rhythm. There were no murmurs. Abdomen was obese, soft and sl tender left upper quadrant. Liver edge palpable: 1-2 cm below the right costal margin firm, sl tender. . Spleen palpable: no. Ascites: none. Hernias: none. Pretibial edema: none. Relevant test results: 04/06/17 US: mildly nodular liver, steatosis, no focal lesions, no mention of ascites 03/08/18 ALT 71, AST 69, AP 82, t bili 1.6, alb 4.1, creat 0.84, INR 1.1, plts 101 Assessment and Plan: 1. CYR cirrhosis 1. Well compensated. Elevated bili has been mainly unconjugated in the past so she likely has an element of Gilbert's contributing to her variable total bili elevations (of no consequence). 2. Continues to have easy bruising --likely related to portal hypertension, low plts. INR okay. ASAand fish oil likely contributing. 3. No varices in 2013. 4. Needs updated imaging surveillance for hepatocellular carcinoma, will set up US locally. 5. Continue low sodium diet. 6. Will repeat labs before next visit--pt to call. An appointment was scheduled for her to see me in followup in one year. Address letter to: Karin Cordoba APRN-TRESTLE MAINTERNANCE LABORER [address] [address] Orders Placed This Encounter ??? 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
--- OUTSIDE RECORDS SUMMARY | 2024-09-25 21:55 | XMS_ITS | Encounter Summary ---
Author Organization [facility] Address [address] [place] [address] Care Team Providers Care Venture Capitalist Name Role Phone Unavailable Primary Care Provider Unavailabl e Reason for Visit * Reason Comments Cirrhosis COSTA Encounter Details Date Type Department Care Team (Late st Contact Info) Description 11/17/2021 11:00 AM MASS SPECTROSCOPIST Office Visit 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) Social [...] Sign Reading Time Taken Comments Blood Pressure 138/66 11/17/2021 10:58 AM MASS SPECTROSCOPIST Pulse 60 11/17/2021 10:58 AM MASS SPECTROSCOPIST Temperature 36.3 ??C (97.4 ??F) 11/17/2021 10:[address] Respiratory Rate - - Oxygen Saturation 100% 11/17/2021 10:58 AM MASS SPECTROSCOPIST Inhaled Oxygen Concentration - - Weight 69.9 kg (154 lb) 11/17/2021 10:58 AM MASS SPECTROSCOPIST Height 160 cm (5' 3 ) 11/17/2021 10:58 AM MASS SPECTROSCOPIST Body Mass Index 27.28 11/17/2021 10:58 AM MASS SPECTROSCOPIST documented in this encounter Patient Instructions * Patient Instructions* Humphrey Vanegas MD - 11/17/2021 11:46 AM MASS SPECTROSCOPIST Thank you for entrusting your healthcare to the physicians and other specialists at the [facility] Gastroenterology and Hepatology clinic today. Following your [...] please call (hospital main number), ask the wreath machine operator to call the gastroenterology fellow vocational rehab consultant. ?? Emergency: call 911 or go to your closest emergency room. ?? We encourage you to use [employer] to send and receive messages and review your test results. Let us know if you need information on signing up for [employer]. More information about us and our services can be found on our websites at [email or web address] and [email or web address] Information about the [facility] [place], a nsk-lpd-dimmub organization supporting liver disease research by your doctors and researchers at [facility], can be found at: www.[facility]ul[facility].org IMPORTANT 11/17/2021 The following information and instructions are from your visit today: 1. Get your liver ultrasound done in January and July. The following [...] find that it helps to have a animal trainer supervisor to provide guidance if you can afford it. 2. Eat healthy foods. Don't diet because just using that word to describe what we eat means that we are depriving ourselves. Just focus on heathy eating in reasonable portion sizes and keep indiscretions to a minimum. Good advice on nutrition can be found on the website for the [place] Healthy Eating Pyramid. Either search for that on the internet or go to: http://[email or web address]/nutritionsource/vnyj-gpdzqa-ndo-eat/pyramid/ Also, the Mediterranean Diet is a good [...] should limit your dose to no more [id number] mg daily. This means that you should [...] medication, report it immediately to your doctor. SPECTROSCOPIST documented in this encounter Progress Notes * Humphrey Vanegas MD - 11/17/2021 11:17 AM CST I saw Ms. Erazo in [facility] today for follow up visit regarding: Chief Complaint Patient presents with ??? 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 Had covid in 2019. Got vaccinated and booster since. No confusion/disorientation. Has been having small volume hematochezia, almost daily. Has discussed with Dr. Garcia. Likely hemorrhoidal. No pedal edema or increased abdominal girth. Does get periodic rumbling. She is mostly compliant with dietary sodium restriction. Some chips. She reports that her level of energy is okay. Some afternoon fatigue. For exercise she has not been doing anything other that home chores, stays busy. She notes occasional right upper quadrant abdominal pain. Fast food consumption: none. Sugar sweetened beverage consumption: none. Current Outpatient Medications Medication Sig ??? ascorbic acid (VITAMIN C) 500 MG tablet Take 500 mg by mouth once daily ??? aspirin (ASPIRIN) 81 MG tablet Take 81 mg by mouth once daily ??? Calcium Carbonate-Vitamin D (CALCIUM-CARB 600 + D PO) Take 1 tablet by mouth ??? cycloSPORINE (RESTASIS) 0.05 % ophthalmic suspension Instill 1 drop into both eyes 2 times daily ??? levothyroxine (SYNTHROID) 125 MCG tablet Take 112 mcg by mouth daily before breakfast ??? [...] route every day with food ??? nadolol (CORGARD) 40 MG tablet Take 1 tablet by mouth once daily ??? omeprazole (PRILOSEC) 20 MG capsule Take 20 mg by mouth daily before breakfast No current facility-administered medications for this visit. I have reviewed with Ms. Erazo her Medical, Social and Family history and I have updated and corrected these sections of her [facility] electronic health record based on my discussions with her and/or her family members present at her visit today. She describes her current alcohol consumption as none. Social History Social History Narrative Lives with . Has 2 children and 2 grandchildren. 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 Review of systems: Chest pain: none. Shortness of breath: none. Dyspnea on exertion: stairs--feels deconditioned. Snoring at night: none. Nausea and vomiting: none. Reflux or GERD symptoms: none on PPI. Constipation or diarrhea: occasional diarrhea but improved. Feels imcompletely evacuated after BMs. Notes polyuria--up at night often. Notes hair loss. On exam today, she appeared alert and anicteric. I reviewed today's vital signs with the patient. Vitals: 11/17/21 1058 BP: 138/66 Pulse: 60 Temp: 97.4 ??F (36.3 ??C) SpO2: 100% Weight: 69.9 kg (154 lb) Height: 1.6 m (5' 3 ) Body mass index is 27.28 kg/m??. Wt Readings from Last 3 Encounters: 11/17/21 69.9 kg (154 lb) 11/18/20 70.9 kg (156 lb 6.4 oz) 11/13/19 69.8 kg (153 lb 12.8 oz) Affect good. Seen with . Skin: no spider angiomata. Lungs were clear to auscultation bilaterally. Heart sounds were regular rate and rhythm. 1/6 LYUDMILA LSB. Abdomen was flat, very soft and nontender. Liver edge palpable: at right costal margin, down 2 cm with deep inspiration, firm, nontender. Spleen palpable: no. Ascites: none. Hernias: none. Pretibial edema: none. Relevant test results: Recent Labs Component Name 11/18/20 1229 08/27/20 0000 11/13/19 0834 03/08/18 0000 03/30/16 0853 03/30/16 0853 10/01/14 1535 03/16/13 1050 0000 TBIL - - - 1.60* - - - - - ALKPHOS 71 - 72 82 - 65 60 - - ALT 31 - 41 71* - 48* 65* - - AST 38* - 43* 69* - 41* 57* - - SODIUM - 137 - 144 - - - - - POTASSIUM 3.8 4.2 3.9 4.2 - - 3.9 - - CO2 28 27 24 26 - 23 27 - - CREATININE 0.8 - 0.8 - - 0.92 1.0 - - BUN 15 17 15 17 - 15 19 - - HGB 11.8* - 12.9 12.6 - 13.1 14.0 - - WBC 3.3* - 3.0* 3.6* - 4.1 5.9 - - PLTCOUNT 81* - 87* - - - 169 - - INR 1.1 - 1.1 1.1 - 1.0 1.0 - - - = values in this interval not displayed. 11/18/2020 12:29 Bilirubin Total 1.7 (H) Bilirubin Direct 0.6 (H) 11/10/21 ALT 36, AST 54, AP 81, creat 0.74, t bili 1.4, alb 3.6, plt 98, Hgb 11.7 (calculated FIB-4:7.26) 01/13/21 US: nodular liver, no focal lesions, no mention of ascites 07/15/21 US: small nodular liver, no focal lesions, no mention of ascites Assessment and Plan: [...] repeat US in January and July locally. 5. Possible symptomatic ascites in the past. Continue low sodium diet. No diuretics needed at this time. 2. Esophageal varices in 2018 1. Continue nadolol. An appointment was scheduled for her to see me in followup in one year. Coding comment: this visit required 33 minutes, of which >50% was spent directly counseling the patient and/or family member(s) on their diagnosis, prognosis, and treatment options as outlined in the assessment and plan above as well as the written instructions in the after visit summary provided to the patient. Address letter to: Karin Cordoba APRN-FORESTRY SUPPORT SPECIALIST [address] [address] Orders Placed This Encounter ??? US ABDOMEN LIMITED ??? US ABDOMEN LIMITED ??? CBC WITH DIFFERENTIAL ??? COMPREHENSIVE METABOLIC PANEL ??? PT-INR ??? BILIRUBIN DIRECT ??? IRON + TIBC + FERRITIN ??? ALPHA FETOPROTEIN BLOOD TUMOR MARKER US Norris Apr Oct Labs Norris 1 year Coding Rationale New or est? Established Patient Total time spent on date of encounter: 33 minutes Highest problem complexity: 2 or more stable chronic illnesses Data review: Ordering of test(s): 3 or more unique test(s) ordered Suggested code: [id number] SPECTROSCOPIST documented in this encounter Plan of Treatment Upcoming Encounters Date Type Department Care Team (Late st Contact Info) Description 10/23/2024 10:00 AM MASS SPECTROSCOPIST Office Visit 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
--- OUTSIDE RECORDS SUMMARY | 2024-09-25 21:55 | XMS_ITS | Encounter Summary ---
Author Organization [facility] Address [address] [place] [address] Care Team Providers Care Customer Support Specialist Name Role Phone Unavailable Primary Care Provider Unavailabl e Reason for Visit * Reason Comments Cirrhosis COSTA Encounter Details Date Type Department Care Team (Late st Contact Info) Description 11/18/2020 10:30 AM FIELD CONTACT PERSON Office Visit [facility] - GI [address] [place] [address], [place] [address] Humphrey Chapa i, MD [address] [place] [address] [place] [address] 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 No / Unsure 11/18/2020 12:03 PM FIELD CONTACT PERSON documented as of this encounter Last Filed Vital Signs Vital Sign Reading Time Taken Comments Blood Pressure 138/79 11/18/2020 10:37 AM FIELD CONTACT PERSON Pulse 76 11/18/2020 10:37 AM FIELD CONTACT PERSON Temperature 37 ??C (98.6 ??F) 11/18/2020 10:37 AM FIELD CONTACT PERSON Respiratory Rate - - Oxygen Saturation 100% 11/18/2020 10:37 AM FIELD CONTACT PERSON Inhaled Oxygen Concentration - - Weight 70.9 kg (156 lb 6.4 oz) 11/18/2020 10:37 AM FIELD CONTACT PERSON Height 160 cm (5' 3 ) 11/18/2020 10:37 AM FIELD CONTACT PERSON Body Mass Index 27.71 11/18/2020 10:37 AM FIELD CONTACT PERSON documented in this encounter Patient Instructions * Patient Instructions* Humphrey Vanegas MD - 11/18/2020 11:40 AM FIELD CONTACT PERSON Thank you for entrusting your healthcare to the physicians and other specialists at the [facility] clinic today. Following your [...] am to noon, 1 to 4:30 pm ). ?? Press 1 to make schedule or [...] please call (hospital main number), ask the wire stripping machine operator to call the gastroenterology fellow concrete rod buster. ?? Emergency: call 911 or go to your closest emergency room. ?? We encourage you to use [employer] to send and receive messages and review your test results. Let us know if you need information on signing up for [employer]. More information about us and our services can be found on our websites at [email or web address] and [email or web address] Information about the [facility], a ycy-muz-qfjqtx organization supporting liver disease research by your doctors and researchers at [facility], can be found at: [email or web address] IMPORTANT 11/18/2020 The following information and instructions are from your visit today: 1. Blood tests here today. 2. Get your liver ultrasound done locally in January and July. The following are [...] find that it helps to have a operations trainer to provide guidance if you can afford it. 2. Eat healthy foods. Don't diet because just using that word to describe what we eat means that we are depriving ourselves. Just focus on heathy eating in reasonable portion sizes and keep indiscretions to a minimum. Good advice on nutrition can be found on the website for the [place] Healthy Eating Pyramid. Either search for that on the internet or go to: http://www.[facility].[email or web address]/nutritionsource/ewez-xegkoq-avs-eat/pyramid/ Also, the Mediterranean Diet is a good [...] should limit your dose to no more [id number] mg daily. This means that you should [...] medication, report it immediately to your doctor. D CONTACT PERSON documented in this encounter Progress Notes * Humphrey Vanegas MD - 11/18/2020 11:13 AM CST I saw Ms. Erazo in [facility] today for follow up visit regarding: Chief Complaint Patient presents with ??? 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 Not vaccinated yet. Has some reluctance. She feels that her cognitive abilities are not as good since covid. No overt confusion. No GI bleeding. No pedal edema or increased abdominal girth. She is not particularly compliant with dietary sodium restriction. She reports that her level of energy is variable. Some fatigue. For exercise she has been using stairs at home regularly. She notes no right upper quadrant abdominal [...] times daily ??? FLUTICASONE PROPIONATE, NASAL, NA [place] 2 sprays into the nose at bedtime [...] updated and corrected these sections of her [facility] electronic health record based on my discussions with her and/or her family members present at her visit today. She describes her current alcohol consumption as none. Social History Social History Narrative Lives with . Has 2 children and 2 grandchildren. 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 Review of systems: Chest pain: some with adjusting thyroid. Seeing schedule analyst. Episode of near syncope last year, none since. Shortness of breath: none. Dyspnea on exertion: on stairs. Snoring at night: none. Nausea and vomiting: none. Reflux or GERD symptoms: none on PPI. Constipation or diarrhea: none. Upper or lower GI bleeding: none. Pruritus: none or rare. On exam today, she appeared alert and anicteric. I reviewed today's vital signs with the patient. Vitals: 11/18/20 1037 BP: 138/79 Pulse: 76 Temp: 98.6 ??F (37 ??C) SpO2: 100% Weight: 70.9 kg (156 lb 6.4 oz) Height: 1.6 m (5' 3 ) Body mass index is 27.71 kg/m??. Wt Readings from Last 3 Encounters: 11/18/20 70.9 kg (156 lb 6.4 oz) 11/13/19 69.8 kg (153 lb 12.8 oz) 11/14/18 71.7 kg (158 lb) Affect good. Seen with . Skin: no spider angiomata. Lungs were clear to auscultation bilaterally. Heart sounds were regular rate and rhythm. There were no murmurs. Abdomen was soft and nontender. Liver edge palpable: no. Spleen palpable: no. Ascites: none. Hernias: none. Pretibial edema: none. Relevant test results: No recent labs available. 07/23/20 US: nodular liver, no focal lesions, no mention of ascites Assessment and Plan: 1. COSTA cirrhosis 1. Remains well compensated. Elevated bili has been mainly unconjugated in the past so she likely has an element of Gilbert's contributing to her variable total bili elevations (of no consequence). 2. Will recheck labs today. 3. Up to date on imaging surveillance for hepatocellular carcinoma, will repeat US in January and July locally. 4. Possible symptomatic ascites in the past. Continue low sodium diet. No diuretics needed at this time. 2. Esophageal varices 1. Continue nadolol. An appointment was scheduled for her to see me in followup in one year. Address letter to: Karin Cordoba APRN-RADIOGRAPHER ANGIOGRAM [address] [address] Coding comment: this visit required 30 minutes, of which >50% was spent directly counseling the patient and/or family member(s) on their diagnosis, prognosis, and treatment options as outlined in the assessment and plan above as well as the written instructions in the after visit summary provided to the patient. Orders Placed This Encounter ??? US ABDOMEN LIMITED ??? US ABDOMEN LIMITED ??? CBC WITH DIFFERENTIAL ??? COMPREHENSIVE METABOLIC PANEL ??? PT-INR [facility] ??? BILIRUBIN DIRECT ??? ALPHA FETOPROTEIN BLOOD TUMOR MARKER [facility] today Coding Rationale New or est? Established Patient Total time spent on date of encounter: 30 minutes Highest problem complexity: 2 or more stable chronic illnesses Data review: Ordering of test(s): 2 unique test(s) ordered Highest level of risk: Moderate Suggested code: 33231 D CONTACT PERSON documented in this encounter Plan of Treatment Upcoming Encounters Date Type Department Care Team (Late st Contact Info) Description 10/23/2024 10:00 AM FIELD CONTACT PERSON Office Visit [facility] [address] [place] [address], [facility] [place] [phone] Humphrey Esquivel MD [address] [place] [address] [place] [address] documented as of this encounter Goals Goal Patient Goal Type Associated Problems Recent Progress Patient-Stated? Author Medication Management General On track( 024 9:45 AM FIELD CONTACT PERSON) Emre Broussard, RN Note: Expected end date: Interventions: Take all medications as prescribed Let your doctor know right away about any changes in your medications Make sure to request a refill of your medication at least one week prior to your last dose documented as of this encounter Results * ALPHA FETOPROTEIN BLOOD TUMOR MARKER (11/18/2020 12:29 PM FIELD CONTACT PERSON) Alpha-Fetoprote in Tumor Marker 2.3 <=8.3 ng/mL 11/18/2020 1:33 PM FIELD CONTACT PERSON [facility] Comment: AFP values will vary depending on testing procedure used. Results are not comparable across different methods. AFP values obtained by [facility] using an Blum Alinity Immunoassay. Blood BLOOD SPECIMEN / Unknown Lab Venipuncture / Unknown 11/18/2020 12:29 PM FIELD CONTACT PERSON 11/18/2020 12:51 PM FIELD CONTACT PERSON Humphrey Esquivel MD LAB - CHEM ISTRY ORDERABLES Performing Organization Address [facility] de Phone Number [address] [address], [facility] [phone] * (ABNORMAL) BILIRUBIN DIRECT (11/18/2020 12:29 PM FIELD CONTACT PERSON) Bilirubin Conjugated 0.6(H) 0.0 - 0.5 mg/dL 11/18/2020 1:16 PM FIELD CONTACT PERSON [facility] Blood BLOOD SPECIMEN / Unknown Lab Venipuncture / Unknown 11/18/2020 12:29 PM FIELD CONTACT PERSON 11/18/2020 12:50 PM FIELD CONTACT PERSON Humphrey Esquivel MD LAB - CHEM ISTRY ORDERABLES Performing Organization Address [facility] de Phone Number [address] [address], [facility] [phone] * PT-INR [facility] (11/18/2020 12:29 PM FIELD CONTACT PERSON) PT 14.3 12.1 - 14.8 Seconds 11/18/2020 1:05 PM [facility] INR 1.1 See Comment 11/18/2020 1:05 PM [facility] Comment:The suggested therap eutic range for standard coumadin (warfarin) therapy is an INR of 2.0-3.0. For high-risk patients (Mechanical Mitral Valve Prosthesis, etc.), the suggested prophylactic therapeutic range is an INR of 2.5-3.5. Blood BLOOD SPECIMEN / Unknown Lab Venipuncture / Unknown 11/18/2020 12:29 PM FIELD CONTACT PERSON 11/18/2020 12:57 PM FIELD CONTACT PERSON Humphrey Esquivel MD LAB - COAG ULATION ORDERABLES Performing Organization Address [facility] Co de Phone Number [facility] [address] [place] [address], [facility] [phone] * (ABNORMAL) COMPREHENSIVE METABOLIC PANEL (11/18/2020 12:29 PM [facility]) BUN 15 7 - 26 mg/dL 11/18/2020 1:16 PM [facility] Creatinine 0.8 0.6 - 1.2 mg/dL 11/18/2020 1:16 PM [facility] Sodium 143 136 - 145 mmol/L 11/18/2020 1:16 PM [facility] Potassium 3.8 3.5 - 4.5 mmol/L 11/18/2020 1:16 PM [facility] Chloride 105 98 - 107 mmol/L 11/18/2020 1:16 PM [facility] CO2 28 22 - 29 mmol/L 11/18/2020 1:16 PM [facility] Glucose 127(H) 70 - 115 mg/dL 11/18/2020 1:16 PM [facility] Calcium 9.1 8.4 - 10.2 mg/dL 11/18/2020 1:16 PM [facility] Protein Total 6.5 6.0 - 8.3 g/dL 11/18/2020 1:16 PM [facility] Albumin 3.5 3.4 - 5.0 g/dL 11/18/2020 1:16 PM [facility] Bilirubin Total 1.7(H) 0.2 - 1.2 mg/dL 11/18/2020 1:16 PM [facility] Alkaline Phosphatase 71 40 - 150 Units/L 11/18/2020 1:16 PM [facility] ALT 31 0 - 55 Units/L 11/18/2020 1:16 PM [facility] AST 38(H) 5 - 34 Units/L 11/18/2020 1:16 PM [facility] Anion Gap 14 8 - 18 11/18/2020 1:16 PM [facility] BUN/Creatinine Ratio 19 7 - 23 11/18/2020 1:16 PM [facility] Osmolality Calculated 298 270 - 300 mOsm/kg 11/18/2020 1:16 PM [facility] Albumin/Globulin Ratio 1.2 1.1 - 2.3 11/18/2020 1:16 PM [facility] eGFR >60 >60 mL/min/1.7 3 m2 11/18/2020 1:16 PM [facility] Blood BLOOD SPECIMEN / Unknown Lab Venipuncture / Unknown 11/18/2020 12:29 PM FIELD CONTACT PERSON 11/18/2020 12:50 PM FIELD CONTACT PERSON Humphrey Esquivel MD LAB - CHEM ISTRY ORDERABLES [facility] [address] [place] [address], [facility] [phone] * (ABNORMAL) CBC WITH DIFFERENTIAL (11/18/2020 12:29 PM FIELD CONTACT PERSON) WBC 3.3(L) 3.5 - 10.5 10? 3 /uL 11/18/2020 1:09 PM [facility] RBC 3.82(L) 3.90 - 5.00 10? 6 /uL 11/18/2020 1:09 PM [facility] Hemoglobin 11.8(L) 12.0 - 15.5 g/dL 11/18/2020 1:09 PM [facility] Hematocrit 35.5 35.0 - 45.0 % 11/18/2020 1:09 PM [facility] MCV 92.9 81.0 - 97.0 fL 11/18/2020 1:09 PM [facility] MCH 30.9 28.0 - 34.0 pg 11/18/2020 1:09 PM [facility] MCHC 33.2 32.0 - 36.0 g/dL 11/18/2020 1:09 PM [facility] Platelet Count 81(L) 150 - 400 10? 3 /uL 11/18/2020 1:09 PM [facility] Comment:Checked with the pre vious result. RDW-SD 46.2 36.0 - 50.0 fL 11/18/2020 1:09 PM [facility] RDW-CV 13.6 11.2 - 14.8 % 11/18/2020 1:09 PM [facility] MPV 11.4 9.3 - 12.8 fL 11/18/2020 1:09 PM [facility] nRBC Absolute 0.00 0 10? 3 /uL 11/18/2020 1:09 PM [facility] nRBC Auto 0.0 0 /100 WBC 11/18/2020 1:09 PM [facility] Neutrophils % 58.0 35.0 - 70.0 % 11/18/2020 1:09 PM [facility] Lymphocytes % 29.7 19.7 - 55.1 % 11/18/2020 1:09 PM [facility] Monocytes % 8.7 3.0 - 15.0 % 11/18/2020 1:09 PM [facility] Eosinophils % 2.7 0.0 - 6.0 % 11/18/2020 1:09 PM [facility] Basophil % 0.6 0.0 - 1.5 % 11/18/2020 1:09 PM [facility] Neutrophils Absolute 1.9 1.6 - 7.0 10? 3 /uL 11/18/2020 1:09 PM [facility] Lymphocyte Absolute 1.0 0.8 - 2.9 10? 3 /uL 11/18/2020 1:09 PM [facility] Monocytes Absolute 0.29 0.14 - 0.66 10? 3 /uL 11/18/2020 1:09 PM [facility] Eosinophils Absolute 0.09 0.00 - 0.45 10? 3 /uL 11/18/2020 1:09 PM [facility] Basophils Absolute 0.02 0.00 - 0.06 10? 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
--- OUTSIDE RECORDS SUMMARY | 2024-09-25 21:55 | XMS_ITS | Encounter Summary ---
Author Organization [facility] Address [address] [facility] [place] [address] Care Team Providers Care Engraver Signature Name Role Phone Unavailable Primary Care Provider Unavailabl e Encounter Details Date Type Department Care Team (Late st Contact Info) Description 02/21/2014 Hospital Outpatient Visit [facility] Default Department Cceilia Irizarry MD [address] [place] [address] Discharge Disposition: Home or Self Care Social [...] st Contact Info) Description 10/23/2024 10:00 AM HIDE INSPECTOR AND SORTER Office Visit [facility] [address] [facility], [place] [address] Humphrey Esquivel MD [facility] [place] [address] documented as of this encounter Visit Diagnoses Not on filedocumented in this encounter
--- OUTSIDE RECORDS SUMMARY | 2024-09-25 21:55 | XMS_ITS | Encounter Summary ---
Author Organization [facility] Address [address] [facility] [place] [address] Care Team Providers Care Retail Sales Advisor Name Role Phone Unavailable Primary Care Provider Unavailabl e Reason for Visit * Reason Comments Follow-up question regarding i nformation received Encounter Details Date Type Department Care Team (Late st Contact Info) Description 10/25/2018 Telephone [facility] [phone] [place] [address] Allie Carpenter, RN Follow-up (question regarding information received) Social History Tobacco Use Types Packs/Day Years [...] as of this encounter Progress Notes * Allie Carpenter RN - 10/25/2018 1:49 PM CST Patient called wanting to know if records were received from [facility]. Patient stated, hadUltrasound of liver/abdomen done. Was told spleen was swollen at that time. Wanting to know if Dr. Vanegas received report and if not she will have them fax report. Please call #[phone]. R PLANT PUMP OPERATOR documented in this encounter Miscellaneous Notes * Telephone Encounter - Emre Paez, RN - 11/11/2018 1:34 PM CST Call placed to pt, brief message to call office for results left on unID'd VM, number left. R PLANT PUMP OPERATOR documented in this encounter Plan of Treatment Upcoming Encounters Date Type Department Care Team (Late st Contact Info) Description 10/23/2024 10:00 AM WATER PLANT PUMP OPERATOR Office Visit [facility] - GI [address] [place] [address], [place] [id number] Humphrey Esquivel MD [address] [place] [address] [place] [address] documented as of this encounter Visit Diagnoses Not on filedocumented in this encounter
--- OUTSIDE RECORDS SUMMARY | 2024-09-25 21:55 | XMS_ITS | Encounter Summary ---
Author Organization [facility] Address [address] [place] [address] Care Team Providers Care Derrick Man Name Role Phone Unavailable Primary Care Provider Unavailabl e Reason for Visit * Reason Comments Itching Encounter Details Date Type Department Care Team (Late st Contact Info) Description 09/20/2018 Telephone [facility] [phone] [place], [place] [id number] Sydnee Kirk RN Itching Social History Tobacco Use Types Packs/Day Years [...] as of this encounter Progress Notes * Sydnee Kirk RN - 09/20/2018 1:25 PM CST Patient called to inform that for the past 2 weeks she has had intermittent itching--this is a new problem. Discussed using Benadryl at night, but she informs that she does not wake up itching. Occurs mostly during the day. She also is having constant generalized abdominal soreness . Denies nausea/ vomiting/ fever. Please contact her at [phone]. T ACCOUNTS SUPERVISOR documented in this encounter Miscellaneous Notes * Telephone Encounter - Emre Paez, RN - 09/20/2018 4:30 PM CST Returned call to pt, discussed medications to try for relief of pruritis,(zyrtec, benadryl), and abd soreness. States usual discomfort is confined to RUQ and takes Aleve with improvement. Currently having diffuse abd soreness and notes non-conformity of abd musculature when attempting to sit up. Denies n/v/diarrhea, fever/chills. Eating without difficulty, having BM's. Encouraged to call PCP for general abd exam/approprate testing and to call office if GI/surgical referral is needed. Verbalizesunderstanding of conversation points and to seek treatment at ER if symptoms acutely worsen. T ACCOUNTS SUPERVISOR documented in this encounter Plan of Treatment Upcoming Encounters Date Type Department Care Team (Late st Contact Info) Description 10/23/2024 10:00 AM TRUST ACCOUNTS SUPERVISOR Office Visit [facility] - GI [address] [place] [address], [place] [phone] Humphrey Esquivel MD [address] [place] [address] [place] [address] documented as of this encounter Visit Diagnoses Not on filedocumented in this encounter
--- OUTSIDE RECORDS SUMMARY | 2024-09-25 21:55 | XMS_ITS | Patient Health Summary ---
Author Organization [facility] Address [address] [place] [address] Care Team Providers Care Priming Powder Premix Blender Name Role Phone Riley Isreal Primary Care Provider [phone] Note from [facility],non-owned Affiliates and Associated Physician Practices is amultiple site organization consisting of ambulatory clinics and hospital sitesin [place], [place] and [place]. This disclosure is being madepursuant to the Care Everywhere program and may not contain all information available regarding this patient. Last updated 18.[facility] Allergies * Adhesive Sensitivity(Other) * Allergy(Urticaria) -Medium Criticality * Codeine(Other) -Low Criticality * Ezetimibe(Other) -Medium Criticality * Hmg-Coa-R Inhibitors(Other) * Loratadine-Pseudoephedrine(Other) * Simvastatin(Myalgias) -Medium Criticality Medications * Be aware that medications may not be up to date on this document. Alwaysverify current medications with the patient. * losartan (COZAAR) 50 MG tablet(Started 01/28/2018) Take 1 (one) tablet by mouth once daily * metFORMIN (GLUCOPHAGE) 500 MG tablet(Started 02/19/2015) 1 (one) tablet 2 times daily with morning and evening meal * Calcium Carbonate-Vitamin D (CALCIUM-CARB 600 + D PO) Take 1 tablet by mouth * multivitamin (OPURITY) CHEW tablet(Started 05/13/2015) take 1 tablet by oral route every day with food * aspirin (ASPIRIN) 81 MG tablet Take 1 (one) tablet by mouth once daily * cycloSPORINE (RESTASIS) 0.05 % ophthalmic suspension Instill 1 (one) drop into both eyes 2 times daily * levothyroxine (SYNTHROID) 125 MCG tablet Take 100 mcg by mouth daily before breakfast * losartan (COZAAR) 25 MG tablet Take 1 (one) tablet by mouth at bedtime * montelukast (Singulair) 10 MG tablet Take 1 (one) tablet by mouth at bedtime * ascorbic acid (VITAMIN C) 500 MG tablet Take 1 (one) tablet by mouth once daily * omeprazole (PRILOSEC) 20 MG capsule Take 1 (one) capsule by mouth daily before breakfast * Pediatric Bgdzcugb-Tlghsphw-Z (COMPLETE MULTI-VITAMIN PO) Take by mouth once daily * ferrous sulfate 325 (65 FE) MG tablet Take 1 (one) tablet by mouth every 2 days * nadolol (Corgard) 40 MG tablet(Started 07/26/2024) Take 1 tablet by mouth once daily * spironolactone (Aldactone) 50 MG tablet(Started 08/14/2024) Take 1 (one) tablet by mouth once daily 5 refills by 08/14/2025 * furosemide (Lasix) 20 MG tablet(Started 08/14/2024) Take 1 (one) tablet by mouth once daily 5 refills by 08/14/2025 Active Problems Problem Noted Date Diagnosed Date Ascites 08/14/2024 Breast cancer 07/28/2024 Hyperlipidemia 11/13/2019 Esophageal varices 04/24/2019 Hypertension 03/13/2018 Gilbert's syndrome 03/13/2018 Osteoarthritis 04/06/2016 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 10/01/2014 Hypothyroidism 09/30/2014 Type 2 diabetes mellitus 04/21/2012 Immunizations * TDAP (7yrs+)(Given 10/11/2010) Social History Tobacco Use Types Packs/Day Years [...] Comments Blood Pressure 151/69 10/25/2023 9:34 AM THERMITE BOMB LOADER Pulse 79 10/25/2023 9:34 AM THERMITE BOMB LOADER Temperature 36.4 ??C (97.6 ??F) 10/25/2023 9:34 AM CS T Respiratory Rate 14 10/25/2023 9:34 AM THERMITE BOMB LOADER Oxygen Saturation 100% 10/25/2023 9:34 AM THERMITE BOMB LOADER Inhaled Oxygen Concentration - - Weight 68 kg (150 lb) 10/25/2023 9:34 AM THERMITE BOMB LOADER Height 160 cm (5' 2.99 ) 10/25/2023 9:34 AM THERMITE BOMB LOADER Body Mass Index 26.58 10/25/2023 9:34 AM THERMITE BOMB LOADER Procedures * DERMATOPATHOLOGY(Performed 09/13/2024) * IMAGING/RADIOLOGY/XRAY RESULTS ORDER(Performed 08/05/2024) * IMAGING/RADIOLOGY/XRAY RESULTS ORDER(Performed 06/06/2024) * IMAGING/RADIOLOGY/XRAY RESULTS ORDER(Performed 10/26/2023) * IRON BLOOD(Performed 10/25/2023) Performed for Liver cirrhosis secondary to MASH * TRANSFERRIN(Performed 10/25/2023) Performed for Liver cirrhosis secondary to MASH * ALPHA FETOPROTEIN BLOOD TUMOR MARKER(Performed 10/25/2023) Performed for Liver cirrhosis secondary to MASH * BILIRUBIN DIRECT(Performed 10/25/2023) Performed for Liver cirrhosis secondary to MASH * PT-INR [facility](Performed 10/25/2023) Performed for Liver cirrhosis secondary to MASH * COMPREHENSIVE METABOLIC PANEL(Performed 10/25/2023) Performed for Liver cirrhosis secondary to MASH * CBC W AUTO DIFFERENTIAL(Performed 10/25/2023) Performed for Liver cirrhosis secondary to MASH * AFP (EXTERNAL RESULT ENTRY)(Performed 04/12/2023) * FERRITIN (EXTERNAL RESULT ENTRY)(Performed 04/12/2023) * IRON/SATURATION (EXTERNAL RESULT ENTRY)(Performed 04/12/2023) * PT INR (EXTERNAL RESULT ENTRY)(Performed 04/12/2023) * COMP MET PANEL (EXTERNAL RESULT ENTRY)(Performed 04/12/2023) * CBC W DIFF (EXTERNAL RESULT ENTRY)(Performed 04/12/2023) * PT INR (EXTERNAL RESULT ENTRY)(Performed 11/02/2022) * CBC W DIFF (EXTERNAL RESULT ENTRY)(Performed 11/02/2022) * IRON/SATURATION (EXTERNAL RESULT ENTRY)(Performed 11/02/2022) * FERRITIN (EXTERNAL RESULT ENTRY)(Performed 11/02/2022) * COMP MET PANEL (EXTERNAL RESULT ENTRY)(Performed 11/02/2022) * COMP MET PANEL (EXTERNAL RESULT ENTRY)(Performed 11/10/2021) * CBC W DIFF (EXTERNAL RESULT ENTRY)(Performed 11/10/2021) * PT INR (EXTERNAL RESULT ENTRY)(Performed 11/10/2021) * ALPHA FETOPROTEIN BLOOD TUMOR MARKER(Performed 11/18/2020) Performed for 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) * BILIRUBIN DIRECT(Performed 11/18/2020) Performed for 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) * PT-INR [facility](Performed 11/18/2020) Performed for 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) * COMPREHENSIVE METABOLIC PANEL(Performed 11/18/2020) Performed for 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) * CBC W AUTO DIFFERENTIAL(Performed 11/18/2020) Performed for 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) * HEMOGLOBIN A1C (EXTERNAL RESULT ENTRY)(Performed 08/27/2020) * MICROALB/CREAT RATIO URINE (EXTERNAL RESULT ENTRY)(Performed 08/27/2020) * CREATININE RAND UR (EXTERNAL RESULT ENTRY)(Performed 08/27/2020) * TSH (EXTERNAL RESULT ENTRY)(Performed 08/27/2020) * LIPID PROFILE (EXTERAL RESULT ENTRY)(Performed 08/27/2020) * COMP MET PANEL (EXTERNAL RESULT ENTRY)(Performed 08/27/2020) * PT-INR [facility](Performed 11/13/2019) Performed for 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) * COMPREHENSIVE METABOLIC PANEL(Performed 11/13/2019) Performed for 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) * CBC W AUTO DIFFERENTIAL(Performed 11/13/2019) Performed for 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) * CBC W DIFF (EXTERNAL RESULT ENTRY)(Performed 03/08/2018) * COMP MET PANEL (EXTERNAL RESULT ENTRY)(Performed 03/08/2018) * PT INR (EXTERNAL RESULT ENTRY)(Performed 03/08/2018) * COMPREHENSIVE METABOLIC PANEL(Performed 03/30/2016) * CBC W AUTO DIFFERENTIAL(Performed 03/30/2016) * PT-INR [facility](Performed 03/30/2016) * DIFFERENTIAL MANUAL(Performed 10/01/2014) * COMPREHENSIVE METABOLIC PANEL(Performed 10/01/2014) * PT-INR [facility](Performed 10/01/2014) * CBC W AUTO DIFFERENTIAL(Performed 10/01/2014) * CBC W AUTO DIFFERENTIAL(Performed 10/01/2014) * ALPHA FETOPROTEIN BLOOD TUMOR MARKER(Performed 02/21/2014) * HEPATIC FUNCTION PANEL(Performed 02/21/2014) * BASIC METABOLIC PANEL (CALCIUM TOTAL)(Performed 02/21/2014) * PT-INR [facility](Performed 02/21/2014) * CBC W AUTO DIFFERENTIAL(Performed 02/21/2014) * CBC W AUTO DIFFERENTIAL(Performed 02/21/2014) * ALPHA FETOPROTEIN BLOOD TUMOR MARKER(Performed 03/16/2013) * HEPATIC FUNCTION PANEL(Performed 03/16/2013) * BASIC METABOLIC PANEL (CALCIUM TOTAL)(Performed 03/16/2013) * HEMOGLOBIN A1C(Performed 03/16/2013) * PT-INR [facility](Performed 03/16/2013) * CBC W AUTO DIFFERENTIAL(Performed 03/16/2013) * ALPHA FETOPROTEIN BLOOD TUMOR MARKER(Performed 09/15/2012) * HEMOGLOBIN A1C(Performed 09/15/2012) * LIPID PROFILE(Performed 09/15/2012) * BASIC METABOLIC PANEL (CALCIUM TOTAL)(Performed 09/15/2012) * HEPATIC FUNCTION PANEL(Performed 09/15/2012) * CBC W AUTO DIFFERENTIAL(Performed 09/15/2012) * PT-INR [facility](Performed 09/15/2012) * LAB HISTORICAL RESULTS-ONBASE(Performed 03/09/2012) * LAB HISTORICAL RESULTS-ONBASE(Performed 03/09/2012) * PT-INR [facility](Performed 03/09/2012) * HEPATIC FUNCTION PANEL(Performed 03/09/2012) Results * DERMATOPATHOLOGY (09/13/2024 9:03 AM THERMITE BOMB LOADER) Case Report Dermatopathology Report ? Case: [id number] ? Authorizing Provider: ??Darcie Hernandez, DO ?? Collected: ? 09/13/2024 09:03 AM ? Ordering Location: ? [facility] - ??Received: ?09/13/2024 04:19 PM ? DermPath Lab ? Pathologist: ? Any Brown MD ? Specimen: ?Skin, right superior shoulder ? 4 4:05 PM [facility] DERMATOPATHOLOGY [facility]ORATORY Final Diagnosis Specimen A. SKIN, right superior shoulder: BENIGN VERRUCOUS KERATOSIS, INFLAMED (L82.1) 4 4:05 PM [facility] DERMATOPATHOLOGY [facility]ORATORY Clinical History R/O NMSC 4 4:05 PM [facility] DERMATOPATHOLOGY [facility]ORATORY Gross Description Specimen A: Received is one formalin filled container labeled with the patient's name and designated right superior shoulder. The specimen consists of a shave biopsy measuring 4x4x4 mm. Jar 0. 4 4:05 PM [facility] DERMATOPATHOLOGY [facility]ORATORY Microscopic Description Specimen A. SKIN, right superior shoulder: Sections show hyperkeratosis, papillomatosis, hypergranulosis, and acanthosis. Inflammatory cells are present within the dermis. These histological findings can be seen in a verruca vulgaris or a seborrheic keratosis. 4 4:05 PM [facility] DERMATOPATHOLOGY [facility]ORATORY Disclaimer An external and internal positive and negative controls are appropriate for the histochemical, immunohistochemical and immunofluorescence stain(s) in this case (if any), except where stated explicitly. The performance characteristics of the stain(s) cited in this report were developed and its performance characteristic determined by the Dermatopathology Laboratory at [facility], directed by Dr. Javier Carias. These tests need not be, and therefore are not, approved by the [place] Food and Drug Administration. The tests are used for clinical purposes. Billing Codes Specimen Charges Stain Charges 52460 1 4 4:05 PM [facility] DERMATOPATHOLOGY [facility]ORATORY Embedded Images 4 4:05 PM [facility] DERMATOPATH[facility]Y [facility]ORY Pathology/Cytolo gy TISSUE SPECIMEN FROM SKIN / Unknown 09/13/2024 9:03 AM THERMITE BOMB LOADER 09/13/2024 4:19 PM [employer] LOADER Darcie Hernandez DO LAB - PATHOLOGY/C YTOLOGY ORDERABLES DERMATOPATHOLOGY LABORATORY [facility] - Department of Dermatology [address] [phone] * IMAGING RADIOLOGY XRAY RESULTS ORDER (08/05/2024) Only the most recent of3 resultswithin the time period is included. Anatomical Region Laterality Modality Other 08/05/2024 Narrative 08/05/2024 Ordered by an unspecified provider. Scanned Document IMAGING * PT-INR [facility] (10/25/2023 11:42 AM THERMITE BOMB LOADER) Only the most recent of9 resultswithin the time period is included. PT 14.8 12.1 - 14.8 Seconds 10/25/2023 12:28 PM [facility] INR 1.2 See Comment 10/25/2023 12:28 PM [facility] Comment:The suggested therap eutic range for standard coumadin (warfarin) therapy is an INR of 2.0-3.0. For high-risk patients (Mechanical Mitral Valve Prosthesis, etc.), the suggested prophylactic therapeutic range is an INR of 2.5-3.5. Blood BLOOD SPECIMEN / Unknown Lab Venipuncture / Unknown 10/25/2023 11:42 AM THERM[employer] BOM[employer] LOADER 10/25/2023 11:57 AM THERM[employer] BOM[employer] LOADER Humphrey Esquivel MD LAB - COAG ULATION ORDERABLES Performing Organization Address City/[facility]/ZIP Co de Phone Number [address] [phone], [facility] [phone] * TRANSFERRIN (10/25/2023 11:42 AM THERMITE BOMB LOADER) [facility] Transferrin 274 174 - 382 mg/dL 10/25/2023 12:33 PM [employer] B[employer] LOAD[employer] [facility] Blood BLOOD SPECIMEN / Unknown Lab Venipuncture / Unknown 10/25/2023 11:42 AM THERM[employer] BOMB LOADER 10/25/2023 11:58 AM [employer] B[employer] LOADER Humphrey Esquivel MD LAB - CHEM ISTRY ORDERABLES Performing Organization Address [facility] de Phone Number [address] [phone], [facility] [phone] * ALPHA FETOPROTEIN BLOOD TUMOR MARKER (10/25/2023 11:42 AM THERMITE BOM[employer] LOADER) Only the most recent of5 resultswithin the time period is included. [facility] Alpha-Fetoprote in Tumor Marker 3.0 <=8.3 ng/mL 10/25/2023 12:51 PM TH[employer] BOM[employer] LOADER [facility] Comment: AFP values will vary depending on testing procedure used. Results are not comparable across different methods. AFP values obtained by [facility] using an Blum Alinity Immunoassay. Blood BLOOD SPECIMEN / Unknown Lab Venipuncture / Unknown 10/25/2023 11:42 AM THERM[employer] BOMB LOADER 10/25/2023 12:03 PM [employer] LOADER Humphrey Esquivel MD LAB - CHEM ISTRY ORDERABLES [facility] [address] [place] [address], [facility] [phone] * (ABNORMAL) CBC WITH DIFFERENTIAL (10/25/2023 11:42 AM THERMITE BOMB LOADER) Only the most recent of10 resultswithin the time period is included. WBC 3.3(L) 4.0 - 10.7 x10E9/L 10/25/2023 12:43 PM [facility] RBC Count 3.66(L) 3.90 - 5.20 x10E12/L 10/25/2023 12:43 PM [facility] Hemoglobin 11.7(L) 11.9 - 15.8 g/dL 10/25/2023 12:43 PM [facility] Hematocrit 33.9(L) 34.8 - 46.1 % 10/25/2023 12:43 PM [facility] MCV 92.6 80.0 - 98.0 fL 10/25/2023 12:43 PM [facility] MCH 32.0 26.7 - 33.6 pg 10/25/2023 12:43 PM [facility] MCHC 34.5 31.7 - 36.3 g/dL 10/25/2023 12:43 PM [facility] RDW-CV 13.8 11.3 - 14.8 % 10/25/2023 12:43 PM [facility] Platelet Count 80(L) 150 - 420 x10E9/L 10/25/2023 12:43 PM [facility] MPV 10.5 7.8 - 11.4 fL 10/25/2023 12:43 PM [facility] Neutrophil % 62.7 41.0 - 74.0 % 10/25/2023 12:43 PM [facility] Lymphocyte % 24.3 17.0 - 47.0 % 10/25/2023 12:43 PM [facility] Monocyte % 8.2 3.0 - 11.0 % 10/25/2023 12:43 PM [facility] Eosinophil % 3.3 0.0 - 7.0 % 10/25/2023 12:43 PM [facility] Basophil % 0.9 0.0 - 1.6 % 10/25/2023 12:43 PM [facility] Immature Granulocytes % 0.6 0.0 - 1.0 % 10/25/2023 12:43 PM [facility] Neutrophil Absolute 2.06 1.60 - 7.50 x10E9/L 10/25/2023 12:43 PM [facility] Lymphocyte Absolute 0.80(L) 1.00 - 4.40 x10E9/L 10/25/2023 12:43 PM [facility] Monocyte Absolute 0.27 0.15 - 1.00 x10E9/L 10/25/2023 12:43 PM [facility] Eosinophil Absolute 0.11 0.00 - 0.60 x10E9/L 10/25/2023 12:43 PM [facility] Basophil Absolute 0.03 0.00 - 0.13 x10E9/L 10/25/2023 12:43 PM [facility] Blood BLOOD SPECIMEN / Unknown Lab Venipuncture / Unknown 10/25/2023 11:42 AM THERM[employer] BOMB LOADER 10/25/2023 12:03 PM [facility] Humphrey Esquivel MD LAB - RIKKI TOLOGY ORDERABLES Performing Organization Address [facility]/State/ZIP Co de Phone Number [facility] [address] [place] [address], [facility] [phone] * (ABNORMAL) COMPREHENSIVE METABOLIC PANEL (10/25/2023 11:42 AM [facility]) Only the most recent of5 resultswithin the time period is included. BUN 12 7 - 26 mg/dL 10/25/2023 12:31 PM [facility] Creatinine 0.74 0.56 - 0.96 mg/dL 10/25/2023 12:31 PM [facility] Sodium 144 136 - 145 mmol/L 10/25/2023 12:31 PM [facility] Potassium 4.1 3.5 - 4.5 mmol/L 10/25/2023 12:31 PM [facility] Chloride 108(H) 98 - 107 mmol/L 10/25/2023 12:31 PM [facility] CO2 27 22 - 29 mmol/L 10/25/2023 12:31 PM [facility] Glucose 130(H) 70 - 115 mg/dL 10/25/2023 12:31 PM [facility] Calcium 8.9 8.4 - 10.2 mg/dL 10/25/2023 12:31 PM [facility] Protein Total 6.8 6.0 - 8.3 g/dL 10/25/2023 12:31 PM [facility] Albumin 3.4 3.4 - 5.0 g/dL 10/25/2023 12:31 PM [facility] Bilirubin Total 2.1(H) 0.2 - 1.2 mg/dL 10/25/2023 12:31 PM [facility] Alkaline Phosphatase 88 40 - 150 U/L 10/25/2023 12:31 PM [facility] ALT 33 5 - 55 U/L 10/25/2023 12:31 PM [facility] AST 46(H) 5 - 34 U/L 10/25/2023 12:31 PM [facility] Anion Gap 9 6 - 16 10/25/2023 12:31 PM [facility] BUN/Creatinine Ratio 16 7 - 23 10/25/2023 12:31 PM [facility] Osmolality Calculated 300(H) 275 - 295 mOsm/kg 10/25/2023 12:31 PM [facility] Albumin/Globulin Ratio 1.0(L) 1.1 - 2.3 10/25/2023 12:31 PM [facility] eGFR by CKD-EPI 81(L) >=90 mL/min/1.7 3 m2 10/25/2023 12:31 PM [facility] Blood BLOOD SPECIMEN / Unknown Lab Venipuncture / Unknown 10/25/2023 11:42 AM [employer]ER 10/25/2023 12:01 PM [facility] Humphrey Esquivel MD LAB - CHEM ISTRY ORDERABLES [facility] [address] [place] [phone], [facility] [phone] * IRON BLOOD (10/25/2023 11:42 AM THERM[employer] LOADER) Iron 86 40 - 150 ug/dL 10/25/2023 12:33 PM [facility] Blood BLOOD SPECIMEN / Unknown Lab Venipuncture / Unknown 10/25/2023 11:42 AM [employer] LOADER 10/25/2023 11:58 AM [employer] LO[employer]ER Humphrey Esquivel MD LAB - CHEM ISTRY ORDERABLES [address] [address], [facility] [phone] * (ABNORMAL) BILIRUBIN DIRECT (10/25/2023 11:42 AM [employer]ERM[employer] LO[employer]ER) Only the most recent of2 resultswithin the time period is included. Bilirubin Conjugated 0.6(H) 0.1 - 0.5 mg/dL 10/25/2023 12:31 PM [facility] Blood BLOOD SPECIMEN / Unknown Lab Venipuncture / Unknown 10/25/2023 11:42 AM [employer] B[employer] LO[employer]ER 10/25/2023 12:01 PM [employer] Humphrey Esquivel MD LAB - CHEM ISTRY ORDERABLES [address] [address], [facility] [phone] * (ABNORMAL) CBC W DIFF (EXTERNAL RESULT ENTRY) (04/12/2023 11:31 AM CDT) Only the most recent of4 resultswithin the time period is included. WBC (EXTERNAL RESULT) 2.8(A) 10^3/ul [facility] Hemoglobin (EXTERNAL RESULT) 11.8(A) g/dl [facility] Hematocrit (EXTERNAL RESULT) 35.2(A) % [facility] Platelets (EXTERNAL RESULT) 76(A) 10^3/ul [facility] Neutrophil Absolute (EXTERNAL RESULT) 1.6 10^3/ul [facility] Blood BLOOD SPECIMEN / Unknown 04/12/2023 11:31 AM CDT Historical Provider MD LAB - HEMATOLOGY ORDERABLES Performing Organization Address [facility] Co de Phone Number [address] [address], [facility] [phone] * (ABNORMAL) PT INR (EXTERNAL RESULT ENTRY) (04/12/2023 11:31 AM CDT) Only the most recent of4 resultswithin the time period is included. PT (EXTERNAL) 15.0(A) sec [facility] INR (EXTERNAL RESULT) 1.1 [facility] Blood BLOOD SPECIMEN / Unknown 04/12/2023 11:31 AM CDT Historical Provider LAB - CHEMISTRY O RDERABLES Performing Organization Address [facility] Co de Phone Number [address] [address], [facility] [phone] * AFP (EXTERNAL RESULT ENTRY) (04/12/2023 11:31 AM CDT) Alpha-Fetoprot ein (EXTERNAL RESULT) 3.2 [facility] Blood BLOOD SPECIMEN / Unknown 04/12/2023 11:31 AM CDT Historical Provider LAB - CHEMISTRY O RDERABLES Performing Organization Address [facility] Co de Phone Number [address] [phone], [facility] [phone] * FERRITIN (EXTERNAL RESULT ENTRY) (04/12/2023 11:31 AM CDT) Only the most recent of2 resultswithin the time period is included. Ferritin (EXTERNAL RESULT) 30.40 [facility] Blood BLOOD SPECIMEN / Unknown 04/12/2023 11:31 AM CDT Historical Provider LAB - CHEMISTRY O SARAH [facility] [address] [place] [phone], [facility] [phone] * IRON/SATURATION (EXTERNAL RESULT ENTRY) (04/12/2023 11:31 AM CDT) Only the most recent of2 resultswithin the time period is included. Iron (EXTERNAL RESULT) 160 mcg/dl [facility] Transferrin (EXTERNAL RESULT) [facility] Transferrin Saturation (EXTERNAL RESULT) 39 % [facility] Blood BLOOD SPECIMEN / Unknown 04/12/2023 11:31 AM CDT Historical Provider LAB - CHEMISTRY O SARAH BETH Performing Organization Address City/[facility]/ZIP Co de Phone Number [address] [address], [place] [phone] * (ABNORMAL) COMP MET PANEL (EXTERNAL RESULT ENTRY) (04/12/2023 11:31 AM CDT) Only the most recent of5 resultswithin the time period is included. Glucose (EXTERNAL) 134(A) mg/dL [facility] Sodium (EXTERNAL RESULT) 139 mmol/L [facility] Potassium (EXTERNAL RESULT) 3.8 mmol/L [facility] Chloride (EXTERNAL RESULT) 103 mmol/L [facility] CO2 (EXTERNAL) 30 mmol/L [facility] Calcium (EXTERNAL RESULT) 8.8 mg/dL [facility] Anion Gap (EXTERNAL RESULT) 6(A) mmol/L [facility] BUN (EXTERNAL RESULT) 17 mg/dL [facility] Creatinine (EXTERNAL RESULT) 0.70 mg/dl [facility] Alkaline Phosphatase (EXTERNAL RESULT) 82 U/L [facility] ALT (EXTERNAL RESULT) 48(A) U/L [facility] AST (EXTERNAL RESULT) 65(A) U/L [facility] Protein Total (EXTERNAL RESULT) 7.0 gm/dL [facility] Albumin (EXTERNAL RESULT) 3.9 gm/dL [facility] Bilirubin Total (EXTERNAL RESULT) 2.3(A) mg/dL [facility] eGFR MDRD (EXTERNAL RESULT) >60 mL/min/1.7 3m2 [facility] eGFR (EXTERNAL) [facility] Blood BLOOD SPECIMEN / Unknown 04/12/2023 11:31 AM CDT Historical Provider LAB - CHEMISTRY O RDERABLES [facility] [address] [place] [address], [facility] [phone] * CREATININE RAND UR (EXTERNAL RESULT ENTRY) (08/27/2020) Creatinine Random Urine (EXTERNAL RESULT) 64.63 mg/dl Urine URINE / Unknown 08/27/2020 Historical Provider LAB - CHEMISTRY O RDERABLES * (ABNORMAL) LIPID PROFILE (EXTERAL RESULT ENTRY) (08/27/2020) Cholesterol (EXTERNAL RESULT) 148 140 - 199 mg/dL Triglycerides (EXTERNAL RESULT) 151(A) 0 - 150 mg/dL HDL (EXTERNAL RESULT) 44 >40 mg/dL LDL (EXTERNAL RESULT) 74 0 - 130 mg/dL VLDL (EXTERNAL RESULT) Chol HDL Ratio (External Result) Blood BLOOD SPECIMEN / Unknown 08/27/2020 Historical Provider LAB - CHEMISTRY O RDERABLES * (ABNORMAL) TSH (EXTERNAL RESULT ENTRY) (08/27/2020) TSH (EXTERNAL RESULT) 0.088(A) 0.465 - 4.680 uIU/mL Blood BLOOD SPECIMEN / Unknown 08/27/2020 Historical Provider LAB - CHEMISTRY O RDERABLES * MICROALB/CREAT RATIO URINE (EXTERNAL RESULT ENTRY) (08/27/2020) Microalb/Creat Ratio (EXTERNAL RESULT) 0 0 - 29 mg/g Urine URINE / Unknown 08/27/2020 Historical Provider LAB - URINE CHEMI STRY ORDERABLES * (ABNORMAL) HEMOGLOBIN A1C (EXTERNAL RESULT ENTRY) (08/27/2020) Hemoglobin A1c (EXTERNAL RESULT) 6.9(A) 4.0 - 6.0 % Blood BLOOD SPECIMEN / Unknown 08/27/2020 Historical Provider LAB - CHEMISTRY O RDERABLES * (ABNORMAL) DIFFERENTIAL MANUAL (10/01/2014 3:35 PM THERMITE BOMB LOADER) WBC (corrected for NRBC) 5.9 10? 3 /uL [facility] Total Cell Count 100 [facility] Neutrophils Absolute Manual 2.89 1.60 - 7.00 10? 3 /uL [facility] Comment:(BANDS+SEGS) x WBC = NEUT # (ANC) Lymphocyte Absolute Manual 2.48 0.80 - 2.90 10? 3 /uL [facility] Monocytes Absolute Manual 0.30 0.14 - 0.66 10? 3 /uL [facility] Eosinophils Absolute Manual 0.24(H) 0.00 - 0.22 10? 3 /uL [facility] Neutrophil % Manual 49 30 - 60 % [facility] Lymphocyte % Manual 42 20 - 45 % [facility] Monocytes % Manual 5 2 - 10 % [facility] Eosinophils % Manual 4 1 - 6 % [facility] Platelet Estimate Adequate Adequate [facility] RBC Morphology Normal [facility] Blood specimen (specimen) BLOOD SPECIMEN / Unknown 10/01/2014 3:35 PM THERMITE BOMB LOADER 10/01/2014 4:03 PM THERMITE BOMB LOADER Humphrey Esquivel MD LAB - RIKKI TOLOGY ORDERABLES [facility] [address] [place] [address] * (ABNORMAL) BASIC METABOLIC PANEL (CALCIUM TOTAL) (02/21/2014 12:47 PM CDT) Only the most recent of3 resultswithin the time period is included. BUN 22 7 - 26 mg/dL [facility] Anion Gap 17 8 - 18 [facility] BUN/Creatinine Ratio 22 7 - 23 [facility] Osmolality Calculated 284 270 - 300 mOsm/kg [facility] Creatinine 1.0 0.6 - 1.2 mg/dL [facility] Sodium 143 136 - 145 mmol/L [facility] Potassium 4.2 3.5 - 4.5 mmol/L [facility] Chloride 104 98 - 107 mmol/L [facility] CO2 26 22 - 29 mmol/L [facility] Glucose 86 70 - 115 mg/dL [facility] Calcium 9.4 8.4 - 10.2 mg/dL [facility] eGFR 55(L) >60 mL/min/1.7 3 m2 [facility] Blood specimen (specimen) BLOOD SPECIMEN / Unknown 02/21/2014 12:47 PM CDT 02/21/2014 2:10 PM CDT Cecilia Irizarry MD LAB - CHEMISTRY [place]I [place] [facility] Organization Address City/State/[place] [address], [facility] [phone] * (ABNORMAL) HEPATIC FUNCTION PANEL (02/21/2014 12:47 PM CDT) Only the most recent of4 resultswithin the time period is included. Pathologist [facility] Bilirubin Conjugated 0.5 0.0 - 0.5 mg/dL [facility] Bilirubin Unconjugated 0.7 Unconjugated Bilirubin is a calculated value: Reference ranges have not been established. mg/dL [facility] Albumin/Globulin Ratio 1.2 1.1 - 2.3 [facility] Protein Total 7.1 6.0 - 8.3 g/dL [facility] Albumin 3.8 3.4 - 5.0 g/dL [facility] Bilirubin Total 1.2 0.2 - 1.2 mg/dL [facility] Alkaline Phosphatase 65 40 - 150 Units/L [facility] ALT 59(H) 0 - 55 Units/L [facility] AST 52(H) 5 - 34 Units/L [facility] Blood specimen (specimen) BLOOD SPECIMEN / Unknown 02/21/2014 12:47 PM CDT 02/21/2014 2:10 PM CDT Cecilia Irizarry MD LAB - CHEMISTRY [place] [address] [phone] * HEMOGLOBIN A1C (03/16/2013 10:50 AM CDT) Only the most recent of2 resultswithin the time period is included. Hemoglobin A1c 6.1 4.4 - 6.3 % [facility] Estimated Average Glucose 128 mg/dL [facility] 03/16/2013 10:5 0 AM CDT 03/16/2013 11:38 AM CDT Cecilia Irizarry MD LAB - CHEMISTRY [place] Performing Organization Address [facility] Co de Phone Number [address] [phone] * LIPID PROFILE (09/15/2012 10:11 AM THERMITE BOMB LOADER) Cholesterol Total 171 <200 mg/dL [facility] HDL 52 > OR = 40 mg/dL [facility] Comment: ATP III classification of HDL cholesterol: <40 mg/dL Low; considered a major risk factor >60 mg/dL High; considered a negative risk factor Triglycerides 146 <150 mg/dL [facility] Comment: ATP III classification of Triglycerides: < 150 mg/dL ??Normal triglycerides 150-199 mg/dL Borderline-high triglycerides 200-400 mg/dL High triglycerides > 500 mg/dL ??Very high triglycerides LDL Calculated 90 0 - 100 mg/dL [facility] Comment: ATP III classification of LDL cholesterol: <100 mg/dL ??Optimal 100-129 Near optimal/above optimal 130-159 Borderline high 160-189 High >190 ?? Very high Venous blood specimen (specimen) 09/15/2012 10:11 AM THERMITE BOMB LOADER 09/15/2012 10:29 AM THERMITE BOMB LOADER Cecilia Irizarry MD LAB - CHEMISTRY [place] Performing Organization Address [facility] Co de Phone Number [facility] [address] [phone] * LAB HISTORICAL RESULTS-ONBASE (03/09/2012 5:38 PM CDT) Only the most recent of2 resultswithin the time period is included. 03/09/2012 5:38 PM CDT Historical Provider LAB - CHEMISTRY Aguila BURLESON Performing Organization Address [facility] Co de Phone Number [facility] [address] Care Teams Priming Powder Premix Blender Relationship Specialty Start Date End Date Isreal Lin [address] [place] [address] PCP - General Internal Medicine 10/25/23
--- OUTSIDE RECORDS SUMMARY | 2024-09-25 21:55 | XMS_ITS | Encounter Summary ---
Author Organization [facility] Address [address] [place] [address] Care Team Providers Care Skating Rink Manager Name Role Phone Unavailable Primary Care Provider Unavailabl e Reason for Visit * Reason Comments Refill Request Encounter Details Date Type Department Care Team (Late Contact Info) Description 02/17/2021 Refill [facility] [place] [address] [place] [phone] Humphrey Esquivel MD [address] [place] [address] [address] [place] [address] Refill Request Social History Tobacco Use Types [...] (Late Contact Info) Description 10/23/2024 10:00 AM MANAGER TALENT Office Visit [facility] [address] [place] [phone] Humphrey Esquivel MD [address] [place] [address] [address] [place] [address] documented as of this encounter Goals Goal Patient Goal Type Associated Problems Recent Progress Patient-Stated? Author Medication Management General On track( 024 9:45 AM MANAGER TALENT) Emre Broussard, RN Note: Expected end date: Interventions: Take all medications as prescribed Let your doctor know right away about any changes in your medications Make sure to request a refill of your medication at least one week prior to your last dose documented as of this encounter Visit Diagnoses Not on filedocumented in this encounter
--- OUTSIDE RECORDS SUMMARY | 2024-09-25 21:55 | XMS_ITS | Encounter Summary ---
Author Organization [facility] Address [address] [facility] [place] [address] Care Team Providers Care Director Of Diagnostic Imaging Name Role Phone Unavailable Primary Care Provider Unavailabl e Reason for Visit * Reason Comments Question Encounter Details Date Type Department Care Team (Late st Contact Info) Description 11/11/2018 Telephone [facility] [address] [facility] [place] [phone] Arlen Topete, RN Question Social History Tobacco Use Types Packs/Day Years [...] as of this encounter Progress Notes * Arlen Topete, RUBEN - 11/11/2018 3:07 PM CST Pt returned call. Informed her what the US showed. Pt states that she already knew the results. Patient then clarified appointment with Dr Vanegas on Wednesday. Pt denies any other needs at this time RVISOR PUTTY AND CALUKING documented in this encounter Plan of Treatment Upcoming Encounters Date Type Department Care Team (Late st Contact Info) Description 10/23/2024 10:00 AM SUPERVISOR PUTTY AND CALUKING Office Visit [facility] [address] [facility], [place] [address] Humphrey Esquivel MD [address] [place] [address] [place] [address] documented as of this encounter Visit Diagnoses Not on filedocumented in this encounter
--- OUTSIDE RECORDS SUMMARY | 2024-09-25 21:55 | XMS_ITS | Encounter Summary ---
Author Organization [facility] Address [address] [facility] [place] [address] Care Team Providers Care University Extension Specialist Name Role Phone Unavailable Primary Care Provider Unavailabl e Reason for Visit * Reason Comments Follow-up Encounter Details Date Type Department Care Team (Late Contact Info) Description 11/10/2021 Telephone [facility] [address] [facility], [place] [address] Elena Topete RN Follow-up Social History Tobacco Use Types [...] as of this encounter Progress Notes * Elena Topete RN - 11/10/2021 9:51 AM CST Patient called to state lab did not receive orders. Faxed orders to [phone]. ITALITY HOST documented in this encounter Plan of Treatment Upcoming Encounters Date Type Department Care Team (Late Contact Info) Description 10/23/2024 10:00 AM HOSPITALITY HOST Office Visit [facility] [address] [facility], [place] [address] Humphrey Esquivel MD [address] [place] [address] [place] [address] documented as of this encounter Goals Goal Patient Goal Type Associated Problems Recent Progress Patient-Stated? Author Medication Management General On track( 024 9:45 AM HOSPITALITY HOST) Emre Broussard, RN Note: Expected end date: Interventions: Take all medications as prescribed Let your doctor know right away about any changes in your medications Make sure to request a refill of your medication at least one week prior to your last dose documented as of this encounter Visit Diagnoses Not on filedocumented in this encounter
--- OUTSIDE RECORDS SUMMARY | 2024-09-25 21:55 | XMS_ITS | Encounter Summary ---
Author Organization [facility] Address [address] [facility] [place] [address] Care Team Providers Care Train Operator Name Role Phone Unavailable Primary Care Provider Unavailabl e Reason for Visit * Reason Comments Cirrhosis Covid-19 Home Management Encounter Details Date Type Department Care Team (Late st Contact Info) Description 08/12/2020 Telephone [facility] - [address] [facility], [place] [address] Bre Reyes RN Cirrhosis; Covid-19 Home Management Social History Tobacco Use Types Packs/Day Years [...] Telephone Encounter - Humphrey Vanegas MD - 08/16/2020 5:06 PM CST I called Ms. Maggie Erazo to discuss how she's doing. No answer. Self- identified in , I left ms that I still don't have an US report. I told her to keep us posted on how she is doing with covid. Humphrey Vanegas MD 08/16/2020, 5:06 PM E PURCHASE TRUCK DRIVER * Telephone Encounter - Bre Reyes RN - 08/12/2020 10:08 AM CST Call received from pt to report to test positive for COVID. Prescribed z-pack, musinex, and Tylenolas needed for fever. Additionally reports to have had recent US abdomen at [facility] in [place], [place]. No results posted to [facility] at this time. Dr. Vanegas notified. Call-back number [phone]. E PURCHASE TRUCK DRIVER documented in this encounter Plan of Treatment Upcoming Encounters Date Type Department Care Team (Late st Contact Info) Description 10/23/2024 10:00 AM LEASE PURCHASE TRUCK DRIVER Office Visit [facility] - [place] [address] [place] [address], [place] [phone] RosiodesylwiaHumphrey Vanegas MD [address] [place] [address] [place] [address] documented as of this encounter Goals Goal Patient Goal Type Associated Problems Recent Progress Patient-Stated? Author Medication Management General On track( 024 9:45 AM LEASE PURCHASE TRUCK DRIVER) No Emre Paez, RN Note: Expected end [...]
--- OUTSIDE RECORDS SUMMARY | 2024-09-25 21:55 | XMS_ITS | Encounter Summary ---
Author Organization [facility] Address [address] [facility] [place] [address] Care Team Providers Care Forming Press Operator Name Role Phone Unavailable Primary Care Provider Unavailabl e Encounter Details Date Type Department Care Team (Latest Contact Info) Description 04/06/2016 Hospital Outpatient Visit [facility] [address] [place] [address] Humphrey Ward MD [address] [place] [address] 2L [place] [address] Discharge Disposition: Home or Self Care Social [...] Contact Info) Description 10/23/2024 10:00 AM SUPERVISOR PASTE MIXING Office Visit [facility] [place] [address] [place] [address], [place] [address] Humphrey Esquivel MD [address] [place] [address] [address] [place] [address] documented as of this encounter Visit Diagnoses Not on filedocumented in this encounter
--- OUTSIDE RECORDS SUMMARY | 2024-09-25 21:55 | XMS_ITS | Encounter Summary ---
Author Organization [facility] Address [address] [place] [address] Care Team Providers Care Settlement Technician Name Role Phone Unavailable Primary Care Provider Unavailabl e Encounter Details Date Type Department Care Team (Late st Contact Info) Description 09/27/2013 Hospital Outpatient Visit [facility] Default Department Cecilia Irizarry MD [address] [place] [address] Rd [address] [place] [address] Discharge Disposition: Home or Self Care Social [...] st Contact Info) Description 10/23/2024 10:00 AM CONFIDENTIAL SECRETARY Office Visit [facility] [address] [facility], [place] [address] Humphrey Esquivel MD [facility] [place] [address] documented as of this encounter Visit Diagnoses Not on filedocumented in this encounter
--- OUTSIDE RECORDS SUMMARY | 2024-09-25 21:55 | XMS_ITS | Encounter Summary ---
Author Organization [facility] Address [address] [place] [address] Care Team Providers Care Metal Off Bearer Name Role Phone Unavailable Primary Care Provider Unavailabl e Reason for Visit * Reason Comments Refill Request Encounter Details Date Type Department Care Team (Late Contact Info) Description 11/17/2020 Refill [facility] [address] [place] [phone] Humphrey Esquivel MD [address] [place] [address] 2L [place] [address] Refill Request Social History Tobacco Use Types [...] (Late Contact Info) Description 10/23/2024 10:00 AM COMMUNICATIONS EXECUTIVE Office Visit [facility] [address] [place] [phone] Humphrey Esquivel MD [address] [place] [address] [address] [place] [address] documented as of this encounter Goals Goal Patient Goal Type Associated Problems Recent Progress Patient-Stated? Author Medication Management General On track( 024 9:45 AM COMMUNICATIONS EXECUTIVE) Emre Broussard, RN Note: Expected end date: Interventions: Take all medications as prescribed Let your doctor know right away about any changes in your medications Make sure to request a refill of your medication at least one week prior to your last dose documented as of this encounter Visit Diagnoses Not on filedocumented in this encounter
--- OUTSIDE RECORDS SUMMARY | 2024-09-25 21:55 | XMS_ITS | Encounter Summary ---
Author Organization [facility] Address [address] [facility] [place] [address] Care Team Providers Care Thermo Cementing Folder Operator Name Role Phone Unavailable Primary Care Provider Unavailabl e Reason for Visit * Reason Onset Date Comments Question 09/01/2022 Encounter Details Date Type Department Care Team (Late st Contact Info) Description 09/01/2022 Telephone [facility] - Nephrology [address] [place] [address], [place] [address] Allie Carpenter, RUBEN Question Social History Tobacco Use Types Packs/Day [...] encounter Miscellaneous Notes * Telephone Encounter - Allie Carpenter RN - 09/01/2022 2:42 PM CST Pt called regarding Mychart message on 08/27/22. Pt stated her concern is regarding taking 3 valiumwith tylenol prior to nasal surgery on 09/24/22. She is aware that the hydrocodone is not to be taken, but concern is regarding the effect of the valium on her liver. Pt would like a call #[phone]. L SERVICE ENGINEER documented in this encounter Plan of Treatment Upcoming Encounters Date Type Department Care Team (Late st Contact Info) Description 10/23/2024 10:00 AM RURAL SERVICE ENGINEER Office [place] [facility] [place] [address] [place] [address], [place] [address] Humphrey Esquivel MD [address] [place] [address] [place] [address] documented as of this encounter Goals Goal Patient Goal Type Associated Problems Recent Progress Patient-Stated? Author Medication Management General On track( 024 9:45 AM RURAL SERVICE ENGINEER) Emre Broussard, RN Note: Expected end date: Interventions: Take all medications as prescribed Let your doctor know right away about any changes in your medications Make sure to request a refill of your medication at least one week prior to your last dose documented as of this encounter Visit Diagnoses Not on filedocumented in this encounter
--- OUTSIDE RECORDS SUMMARY | 2024-09-25 21:55 | XMS_ITS | Encounter Summary ---
Author Organization [facility] Address [address] [facility] [place] [address] Care Team Providers Care Tying Machine Operator Lumber Name Role Phone Unavailable Primary Care Provider Unavailabl e Encounter Details Date Type Department Care Team (Late st Contact Info) Description 01/02/2021 Orders Only [facility] Medical [facility] - COVID Vax [address] [place] [address] Lukasz Cordero MD [address] [facility] [address] [place] [address] Need for vaccination Social History Tobacco Use Types Packs/Day Years [...] (Late Contact Info) Description 10/23/2024 10:00 AM SMELTER LINER [place] [facility] [place] [address] [place] [address], [place] [address] Humphrey Esquivel MD [address] [place] [address] [place] [address] documented as of this encounter Goals Goal Patient Goal Type Associated Problems Recent Progress Patient-Stated? Author Medication Management General On track( 024 9:45 AM SMELTER LINER) Emre Broussard, RN Note: Expected end date: Interventions: Take all medications as prescribed Let your doctor know right away about any changes in your medications Make sure to request a refill of your medication at least one week prior to your last dose documented as of this encounter Visit Diagnoses Diagnosis Need for vaccination Need for prophylactic vaccination and inoculation against unspecified single disease documented in this encounter
--- OUTSIDE RECORDS SUMMARY | 2024-09-25 21:55 | XMS_ITS | Encounter Summary ---
Author Organization [facility] Address [address] [facility] [place] [address] Care Team Providers Care Supervisor Wood Room Name Role Phone Unavailable Primary Care Provider Unavailabl e Reason for Visit * Reason Comments Results US Encounter Details Date Type Department Care Team (Late st Contact Info) Description 07/27/2019 Telephone [facility] - [address], [place] [address] Emre Paez, RN Results (US) Social History Tobacco Use Types [...] Telephone Encounter - Emre Paez RN - 07/27/2019 8:41 AM CDT Brief message left to call office for results on unID'd VM. Call Ms. Erazo and let her know that her liver ultrasound looks okay. No new problems, no evidenceof cancer. Humphrey Vanegas MD 07/26/2019, 11:06 PM * Telephone Encounter - Emre Paez, RN - 07/27/2019 8:35 AM CDT ----- Message from Humphrey Vanegas MD sent at 07/26/2019 11:05 PM CDT ----- Call Ms. Erazo and let her know that her liver ultrasound looks okay. No new problems, no evidenceof cancer. Humphrey Vanegas MD 07/26/2019, 11:06 PM documented in this encounter Plan of Treatment Upcoming Encounters Date Type Department Care Team (Late st Contact Info) Description 10/23/2024 10:00 AM ROLLED SEAT TRIMMER Office Visit [facility] - [place] [address] [place] [address], [place] [phone] Mary-Humphrey Vanegas MD [address] [place] [address] [place] [address] documented as of this encounter Visit Diagnoses Not on filedocumented in this encounter
--- OUTSIDE RECORDS SUMMARY | 2024-09-25 21:55 | XMS_ITS | Encounter Summary ---
Author Organization [facility] Address [address] [facility] [place] [address] Care Team Providers Care Wheel And Pinion Inspector Name Role Phone Isreal Lin Primary Care Provider [phone] Reason for Visit * Reason Comments Results Opened In Error Encounter Details Date Type Department Care Team (Late Contact Info) Description 11/08/2023 Telephone [facility] [address] [place] [phone] Bre Reyes RN Results; Opened In Error Social History Tobacco Use Types Packs/Day Years [...] (Late Contact Info) Description 10/23/2024 10:00 AM POWER PLANT TECHNICIAN Office Visit [facility] [address] [place] [phone] Humphrey Esquivel MD [address] [place] [address] [place] [address] documented as of this encounter Goals Goal Patient Goal Type Associated Problems Recent Progress Patient-Stated? Author Medication Management General On track( 024 9:45 AM POWER PLANT TECHNICIAN) Emre Broussard, RN Note: Expected end date: Interventions: Take all medications as prescribed Let your doctor know right away about any changes in your medications Make sure to request a refill of your medication at least one week prior to your last dose documented as of this encounter Visit Diagnoses Not on filedocumented in this encounter Care Teams Wheel And Pinion Inspector Relationship Specialty Start Date End Date Isreal Lin [address] [place] [address] PCP - General Internal Medicine 10/25/23 documented as of this encounter
--- OUTSIDE RECORDS SUMMARY | 2024-09-25 21:59 | XMS_ITS | Encounter Summary ---
Author Organization [facility] Healthcare Address [address] [place] [address] Care Team Providers Care Professor Of Legal Studies Name Role Phone Isreal Lin MD Primary Care Provider [phone] Reason for Referral * Diagnostic Imaging (Routine) - Closed Specialty Diagnoses / Procedures Referred By Contac t Referred To Contact Diagnoses Coronary artery calcification seen on CT scan Nonrheumatic aortic valve stenosis Pre-operative cardiovascular examination Procedures NM MPI SPECT (Rest and/or Stress) Multiple Studies WA [id number] SESTAMIBI Sherrell Sunshine MD [address] [place] [address] Phone: tel: fax: [facility] Medical Group Referral ID Status Reason Start Date Expiration Date Visits Re quested Visits Authorized [id number] Closed 05/31/2024 06/30/2025 1 1 Reason for Visit * Reason Comments Follow-up 7 mo follow up on mi ld , CAC, HTN, palps, HLD Encounter Details Date Type Department Care Team (Latest Contact Info) Description 05/31/2024 1:00 PM CDT Office Visit [facility] Medical [facility] Cardiology [address] [place] [address] Sherrell Sunshine MD [address] [place] [address] Hypertension associated with diabetes (HCC) (Primary Dx); 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) (HCC); H/O: CVA (cerebrovascular accident); Coronary artery calcification seen on CT scan; Nonrheumatic aortic valve stenosis; Pre-operative cardiovascular examination Social History Tobacco Use Types Packs/Day Years Used Date Smoking Tobacco: Never Cigarettes Smokeless Tobacco: Never Tobacco Cessation:Counseling Given: Not Answered Alcohol Use Standard Drinks/Week Comments No 0 (1 standard drink = 0.6 oz pur e alcohol) AUDIT-C Answer Date Recorded Frequency of Alcohol Consumption Not on file 12/01/2023 Q2: How many drinks containi ng alcohol do you have on a typical day when you are drinking? Patient does not drink Frequency of Binge Drinking Not on file 11/12 Personal Safety Answer Date Recorded Have you ever been in or are you currently in a harmful physical or emotional relationship or is someone making you feel afraid or unsafe? 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 Gender Identity Female 01/28/2024 11:49 PM CDT Sexual Orientation Straight 08/12/2022 12 :04 PM CDT documented as of this encounter Last Filed Vital Signs Vital Sign Reading Time Taken Comments Blood Pressure 132/74 05/31/2024 12:56 PM CDT Pulse 66 05/31/2024 12:56 PM CDT Temperature - - Respiratory Rate 16 05/31/2024 12:56 PM CDT Oxygen Saturation - - Inhaled Oxygen Concentration - - Weight 68 kg (150 lb) 05/31/2024 12:56 PM CDT Height 160 cm (5' 3 ) 05/31/2024 12:56 PM CDT Body Mass Index 26.57 05/31/2024 12:56 PM CDT documented in this encounter Progress Notes * Sherrell Sunshine MD - 05/31/2024 1:00 PM CDT [facility] DATE OF VISIT: 05/31/2024 CHIEF COMPLAINT Chief Complaint Patient presents with Follow-up 7 mo follow up on mild , CAC, HTN, palps, HLD HPI Maggie Erazo is a 83 y.o. female with a PMHx of diabetes mellitus, hypertension, dyslipidemia, fatty liver disease/cirrhos and history of remote palpitations in the 1980s and who is seen in very kind referral by Dr. Fox for further evaluation and management for complaint of chest painand abnormal abdominal CT scan suggestive of atherosclerosis and calcification of the aorta and arterial supply. Patient describes episodes of chest pain 3-4 days ago described as sharp and occasional mild pressure-like sensation not necessarily associated with activity and on one occasion lasting up to 3-4 days. He is not noted significant associated symptoms of shortness of breath, diaphoresis or nausea. Not necessarily associated with exertion or limiting in this regard. Patient has a history of painful varicose veins followed by Dr. Crouch and now Dr. Eckert for management. Patient follows with Dr. Vanegas of gastroenterology for her liver disease. She had a stress test July 16, 2009 negative for ischemia stress echocardiogram exercise 10 minutes 103% of age-predicted maximum heart rate. No other known history of coronary artery disease. 05/13/15 No progression in sxs. Still with CP moving back and forth lasting seconds nonlimiting. NO SOB or palps or dizziness. Feels well in general. Checks BP 140's in office but better at home. Inc Losartan by PCP and BP very low she reports so dec Losartan (109/53) but felt fine she reports but itscared her so she dec dose on her own. BP typically 120-130's at home typically. 06/22/16 URI recently. Feels ok otherwise. Runny nose, cough, no fevers. Generally, no sig PATE. NO CP. Sees Dr. Vanegas for cirrhosis/liver issues stage 4 per her recollection. Denies palps. 08/20/17 Occ sharp pains in chest one month ago on right then on left, random times then discoveredthyroid imbalanced so increased Synthroid and sxs resolved and no issues. No SOB generally and feeling ok. Occ sensation of palps in upper chest resolves with rest. Notes palps lying down sometimes, not daily. States had a stressful year. Sleeping ok at night generally. Uses vaporizer at night Restasis, due to dry membranes helps a bit. Notes leg fatigue very quickly. 08/29/18 In March had dizzy spell with diaphoresis and weakness lasting seconds, felt nauseous, no emesis, without recurrence. Pt states PCP thought may have been related to vertigo Still has fluid inears but no recurrent dizziness. NO CP or new SOB. Notes she is slowing down over the years but nothing more acute. Not checking BP on routine basis, although did check recently SBP 132mmHg. 09/11/19 Doing ok in general, no new complaints. HAving some bleeding in colon for past 4 months with recommendations for fiber, supplemental drink to reduce diarrhea. Has colonoscopy upcoming this week. Still seeing liver specialist for cirrhosis. Sometimes abd pain. HAs not been exercising as muchdue to arthritis. Had some CP after lifting totes and boxing, mild shooting across chest sharper some under L breast to around her rib cage. No assoc nausea, diaphoresis, SOB. No significant palps oflate. Taken off ASA by Dr. Garcia after discovering ulcer in stomach 2 months ago. Had another scope8 weeks later ulcer gone. On Omeprazole. 09/23/20Oct cleaning bathroom had dizziness spell felt like she was going to pass out then resolved <1 min. Then 2 days later had left side of tongue and upper/lower lips numb and with small drooling L corner of mouth resolved <1 min had assoc dizziness. Periodically feels a little dizzy butno other assoc sxs. Jun 05 she wrote down had dizziness all day, but generally noted getting up fa ster or even if had been walking (she is not sure how long before she got up). No other recurrence like she did in Oct/Nov. She discussed with PCP. No assoc. August 11 COVID+ still not quite right, tired, fatigued in afternoon. No new SOB. Had some CP across under L breast after she had COVID. Synthroid changed by PCP 1 month ago or so. No syncope. No CP since she lowered thyroid meds. She cannot recall if she had CP with COVID or not. Dizziness not often once every couple of weeks maybe butshe is not paying attention not too bothersome to her. No assoc palps but she can notice skipping beats on occasion. Started taking ASA at noon with big meal now for 1-2 months. No bleeding or melena. 01/24/2021 CAT visit-she is here for routine follow-up. She has had no further episodes of presyncope or dizziness. She denies any palpitations. She had a couple days of a shooting chest pain throughthe left breast no other chest pain. Recent A1c was 6.2. She received her 1st COVID vaccine a couple of weeks ago. 08/06/21 Was having occ shooting pains across chest to left not sharp lasted seconds then resolved.But had a soreness center of chest, squeezing resolved recently then changed Thyroid med reduced and all resolved which she thinks was related. Feeling fine otherwise, no SOB, energy is fine she states her says she has too much energy. Does not sleep all that well. Maybe snores some at night. HAd labs done recently, liver ultrasound seeing Dr. Vanegas. Admits to a lot of stomach sxs gurgling,upset as well. No significant palpitations with rare exception rests a few seconds then able to go on. 02/09/22 Feeling well, liver a little worse not a txp candidate. Breathing ok sinus issues, no CP or falls or bleeding. Dutch meds. Stays active maybe a slowing a bit. occ fleeting short lived in general, random no aggravating or relieving factors. No new limitations. Occ palps sensations no change in general. No issues with ASA 81mg daily, some bruising. 08/17/22 Feeling fine no CP or palps, no dizziness or edema. Has outpatient sinus surgery upcoming in September no new limitations. Tripped on a rug no injuries LOC. Taking Losartan 50mg in AM and 25mgin evening as she states was told to do not checking BP at home. No twinges in chest since changingthyroid medication recently, previously random not with exertion, she has been quite active without limitation up and down a lot of stairs carrying boxes, painting all day. 08/30/23 Admitted to [place] concern for TIA like sxs double vision and other sxs in July 2023.MRI showed old L frontal lobe infarct no acute findings. She has been off ASA for a couple of months due to potential for sinus surgery. Back to normal except sinus issues. No CP, SOB, or syncope. InSR on ECG. She has occ positional dizziness. She has notes more frequent palps niecy past month more a pparent lying down in bed. 11/02/23 CAT visit-after her last visit she wore a 7 day Holter monitor and came back in for an echocardiogram. She denies any further TIA symptoms. Her local ENT referred her to a surgeon at [facility] and she has anticipating a sinus surgery. Date of service 05/31/2024: She has been found to have breast cancer and is in process of workup. She does have some occasional upper back pain that was not necessarily exertional but is also not worsened by movement. She denies any syncope, presyncope, paroxysmal nocturnal dyspnea, orthopnea, unusual edema. She has some rare palpitations but nothing sustained. No unusual shortness breath MEDICAL HISTORY Past Medical History: Diagnosis Date Allergic rhinitis Anemia 2021 Arthritis Cancer (CMS/HCC) (HCC) 2023 Cataract 2021 Cirrhosis (HCC) 2014 Deep vein thrombosis (CMS/HCC) (HCC) 2013 Delayed emergence from general anesthesia pt reports slow to wake up many years ago after colonscopy, pt states she went home same day and has done fine since then with other procedures Dental disease 1999 Diabetes mellitus (HCC) 2002 Dizziness 2002 Headache 2002 Hypertension Liver disease 2011 Nosebleed 2009 Sinusitis 2002 Tinnitus 2002 Social History Tobacco Use Smoking status: Never Smoker Smokeless tobacco: Never Used Substance Use Topics Alcohol use: No Family History Problem Relation Age of Onset Stroke Mother Stroke; Hypertension Mother Hypertension; Diabetes Mother Alzheimer's disease Father Alzheimer's disease; Kidney failure Father 91 Kidney failure; Cause of : Kidney failure Arthritis Father Kidney disease Father Alcohol abuse Brother Anesthesia problems Neg Hx MEDICATIONS HOME MEDICATIONS : artificial tears,hypromellose, 0.3 % drops ascorbic acid (ascorbic acid with darlene hips) 500 mg tablet ascorbic acid/collagen hydr (COLLAGEN SKIN RENEWAL ORAL) aspirin 81 mg enteric coated tablet calcium carbonate (CALCIUM 600) 1,500 mg (600 mg of elemental calcium) tablet collagen, hydrolysate, bovine, (collagen, hydr, bovine,, bulk,) 100 % powder cycloSPORINE (RESTASIS) 0.05 % ophthalmic emulsion ferrous sulfate 325 mg (65 mg of elemental iron) tablet levothyroxine (SYNTHROID) 100 mcg tablet losartan (COZAAR) 25 mg tablet losartan (COZAAR) 50 mg tablet metFORMIN (GLUCOPHAGE) 500 mg tablet multivitamin tablet tablet mupirocin (BACTROBAN) 2 % ointment nadoloL (CORGARD) 40 mg tablet omeprazole (PriLOSEC) 20 mg capsule sod ffnhf-mrmmzy-zjxhhm bottle 2,300-700 mg kit budesonide (PULMICORT) 0.5 mg/2 mL nebulizer solution nitrofurantoin monohydrate (MACROBID) 100 mg capsule ALLERGIES Allergies Allergen Reactions Adhesive Tape-Silicones Hives Ezetimibe Muscle pain Simvastatin Muscle pain Codeine Other (See comments) Acute abd. pain Acute abd. pain, Loratadine-Pseudoephedrine Other (See comments) Uyhhsxx-Ymp-Nnw Reductase Inhibitors Other (See comments) REVIEW OF SYSTEMS Review of Systems Constitutional: Positive for weight loss. Negative for decreased appetite, diaphoresis, fever, malaise/fatigue, night sweats and weight gain. HENT: Negative for hearing loss and nosebleeds. Eyes: Negative for blurred vision and pain. Cardiovascular: Negative for chest pain, claudication, dyspnea on exertion, irregular heartbeat, leg swelling, near-syncope, orthopnea, palpitations and syncope. Respiratory: Positive for shortness of breath. Negative for cough, hemoptysis, snoring and wheezing. Endocrine: Negative for cold intolerance and heat intolerance. Hematologic/Lymphatic: Negative for bleeding problem. Does not bruise/bleed easily. Skin: Negative for color change, itching, rash and suspicious lesions. Musculoskeletal: Positive for arthritis, back pain and joint pain. Negative for falls, muscle weakness and myalgias. Gastrointestinal: Negative for abdominal pain, diarrhea, heartburn, hematemesis, melena and nausea. Genitourinary: Negative for dysuria, hematuria and nocturia. Neurological: Negative for excessive daytime sleepiness, dizziness, focal weakness, headaches, light-headedness, loss of balance and weakness. Psychiatric/Behavioral: Negative for altered mental status, depression and memory loss. The patientis not nervous/anxious. Allergic/Immunologic: Negative for environmental allergies. All other systems reviewed and are negative. PHYSICAL EXAM Vitals BP 132/74 (BP Location: Right arm, Patient Position: Sitting) Pulse 66 Resp 16 Ht 160 cm (5' 3 ) Wt 68 kg (150 lb) BMI 26.57 kg/m?? Weight: 68 kg (150 lb) Height: 160 cm (5' 3 ) Body mass index is 26.57 kg/m??. Physical Exam Vitals reviewed. Constitutional: General: She is not in acute distress. Appearance: Normal appearance. She is well-developed. She is not diaphoretic. HENT: Head: Normocephalic and atraumatic. Right Ear: External ear normal. Left Ear: External ear normal. Nose: Nose normal. Mouth/Throat: Dentition: Normal dentition. Eyes: General: Lids are normal. No scleral icterus. Conjunctiva/sclera: Conjunctivae normal. Neck: Thyroid: No thyromegaly. Vascular: Normal carotid pulses. No carotid bruit, hepatojugular reflux or JVD. Trachea: No tracheal deviation. Cardiovascular: Rate and Rhythm: Normal rate and regular rhythm. Pulses: Normal pulses and intact distal pulses. Heart sounds: S1 normal and S2 normal. Heart sounds not distant. Murmur heard. High-pitched midsystolic murmur is present with a grade of 3/6 at the upper right sternal border and upper left sternal border radiating to the neck. No friction rub. No gallop. No S3 or S4 sounds. Pulmonary: Effort: Pulmonary effort is normal. No respiratory distress. Breath sounds: Normal breath sounds. No wheezing or rales. Chest: Chest wall: No tenderness. Abdominal: General: Bowel sounds are normal. There is no distension. Palpations: Abdomen is soft. There is no mass. Tenderness: There is no abdominal tenderness. There is no guarding or rebound. Musculoskeletal: General: No tenderness or deformity. Normal range of motion. Cervical back: Normal range of motion and neck supple. Right lower leg: No edema. Left lower leg: No edema. Lymphadenopathy: Cervical: No cervical adenopathy. Skin: General: Skin is warm and dry. Coloration: Skin is not pale. Findings: No ecchymosis, erythema, petechiae or rash. Nails: There is no clubbing. Neurological: General: No focal deficit present. Mental Status: She is alert and oriented to person, place, and time. Mental status is at baseline. Cranial Nerves: No cranial nerve deficit. Motor: No abnormal muscle tone. Coordination: Coordination normal. Psychiatric: Mood and Affect: Mood normal. Speech: Speech normal. Behavior: Behavior normal. Behavior is cooperative. Thought Content: Thought content normal. Judgment: Judgment normal. LABS AND OTHER DIAGNOSTIC TESTS No visits with results within 3 Month(s) from this visit. Latest known visit with results is: Lab on 01/05/2024 Component Date Value Ref Range Status WBC 01/05/2024 3.6 (L) 3.8 - 9.9 K/cumm Final Hgb 01/05/2024 10.7 (L) 11.9 - 15.5 g/dL Final Hct 01/05/2024 32.3 (L) 35.6 - 45.5 % Final Plt 01/05/2024 112 (L) 150 - 400 K/cumm Final MPV 01/05/2024 9.7 9.1 - 12.3 fL Final RBC 01/05/2024 3.39 (L) 3.90 - 5.20 M/cumm Final MCV 01/05/2024 95.3 81.3 - 96.4 fL Final MCH 01/05/2024 31.6 27.1 - 33.3 pg Final MCHC 01/05/2024 33.1 32.3 - 35.7 g/dL Final RDW CV 01/05/2024 13.4 11.1 - 14.9 % Final RDW SD 01/05/2024 46.5 35.7 - 48.1 fL Final NRBC abs 01/05/2024 0.00 0.00 - 0.01 K/cumm Final Neutrophil abs 01/05/2024 2.2 1.5 - 6.5 K/cumm Final Imm gran abs 01/05/2024 0.0 0.0 - 0.1 K/cumm Final Lymphocyte abs 01/05/2024 0.9 0.8 - 3.3 K/cumm Final Monocyte abs 01/05/2024 0.3 0.2 - 0.8 K/cumm Final Eosinophil abs 01/05/2024 0.1 0.0 - 0.5 K/cumm Final Basophil abs 01/05/2024 0.0 0.0 - 0.1 K/cumm Final Neutrophil pct 01/05/2024 62.6 % Final Imm gran pct 01/05/2024 0.3 % Final Lymphocyte pct 01/05/2024 24.2 % Final Monocyte pct 01/05/2024 9.0 % Final Eosinophil pct 01/05/2024 2.8 % Final Basophil pct 01/05/2024 1.1 % Final Results for orders placed or performed in visit on 01/05/24 CBC with auto differential Result Value Ref Range WBC 3.6 (L) 3.8 - 9.9 K/cumm Hgb 10.7 (L) 11.9 - 15.5 g/dL Hct 32.3 (L) 35.6 - 45.5 % Plt 112 (L) 150 - 400 K/cumm MPV 9.7 9.1 - 12.3 fL RBC 3.39 (L) 3.90 - 5.20 M/cumm MCV 95.3 81.3 - 96.4 fL MCH 31.6 27.1 - 33.3 pg MCHC 33.1 32.3 - 35.7 g/dL RDW CV 13.4 11.1 - 14.9 % RDW SD 46.5 35.7 - 48.1 fL NRBC abs 0.00 0.00 - 0.01 K/cumm Differential, auto Result Value Ref Range Neutrophil abs 2.2 1.5 - 6.5 K/cumm Imm gran abs 0.0 0.0 - 0.1 K/cumm Lymphocyte abs 0.9 0.8 - 3.3 K/cumm Monocyte abs 0.3 0.2 - 0.8 K/cumm Eosinophil abs 0.1 0.0 - 0.5 K/cumm Basophil abs 0.0 0.0 - 0.1 K/cumm Neutrophil pct 62.6 % Imm gran pct 0.3 % Lymphocyte pct 24.2 % Monocyte pct 9.0 % Eosinophil pct 2.8 % Basophil pct 1.1 % [facility] records from 07/2023 consult notes, labs, ECG, MRI, CXR. Personally reviewed EKG and bloodwork/lipids. TELEMETRY 09/2023 Essentially unremarkable 7 day mobile cardiac outpatient lunchroom monitor with no evidence of atrial fibrillation being identified in this patient with recent TIA/CVA ECHO 10/26/2023 Normal left ventricular systolic function. No focal wall motion abnormalities. Normal left ventricular size. Mild concentric left ventricular hypertrophy. Impaired diastolic relaxation Grade I. Ejection fraction is visually estimated at 65 %. Ejection fraction is measured at 60 %. Global Longitudinal Strain is -18 %. GLS is normal. There is mild enlargement of left atrium. Moderate mitral annular calcification. Mild mitral valve regurgitation. There is no hemodynamically significant mitral stenosis by Doppler. Mild aortic stenosis. Valve area of 1.7 cm2. Aortic cusps appear mildly calcified. Trileaflet aortic valve. Trace aortic valve regurgitation. Normal appearance of the tricuspid valve. Mild pulmonary hypertension based on right ventricular systolic pressure. Estimated peak RVSP is 35-40 mmHg. Mild tricuspid regurgitation. Normal sinus rhythm. ASSESSMENT There are no diagnoses linked to this encounter. 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 She has significant lower back and knee pain and can not exercise on a treadmill. Otherwise continue losartan for hypertension and other meds without change. Follow-up in 6 months or sooner as clinically indicated Sherrell Sunshine MD, [facility] documented in this encounter Plan of Treatment Not on file documented as of this encounter Results * NM MPI SPECT (Rest and/or Stress) Multiple Studies (06/15/2024 9:45 AM CDT) Anatomical Region Laterality Modality Body N/A Nuclear Medicine 06/15/2024 7:57 AM CDT Narrative 06/15/2024 5:20 PM CDT [facility] Medical [facility] Cardiology [address], [place] [address] [address] [facility] [address], [place] [address] P:[phone] P:[phone] MPI Imaging Report Patient Name: MAGGIE ERAZO A : 1940 Study Date: 06/15/2024 7:57:40 AM Gender: F Tech: NATANAEL MALLORYMT Location: [facility] Provider: SHERRELL SUNSHINE ?Height(Cm): 160 BSA: ??Weight(Kg): 68 BMI: 26.56 ?Order Provider: SHERRELL SUNSHINE - PHYSICIAN: Referring Physician: Dr. Lin. HCG Physician: Irvin Sunshine M.D. Interpreting Physician: Leonardo Medina M.D.,Jesse Stress Supervision: Leonardo Medina M.D.,Jesse PROCEDURES: Myocardial perfusion imaging with Tc99M Sestamibi SPECT at rest and stress post regadenoson (Lexiscan) infusion. INDICATIONS: Palpitations. Upper back pain. Coronary Calcification on CT, I25.10 Atherosclerotic heart disease of [place] coronary artery without angina pectoris, I35.0 Nonrheumatic aortic (valve) stenosis, and Z01.810 Encounter for preprocedural cardiovascular examination. FINDINGS: Procedural Findings: One day rest/stress was used. Tc99m Sestamibi injected IV at rest was 10.1 millicuries. 32.7 millicuries of Tc99M Sestamibi injected IV during Lexiscan stress. Lexiscan 0.4mg administered IV over 10 seconds. Pharmacologic stress related symptoms and/or side effects during infusion include upper back pain 8/10 , transient. Symptoms were resolved with completion of Lexiscan protocol. Baseline heart rate was 65 BPM. Maximum Heart Rate Achieved was: 91 BPM. Baseline blood pressure was 188/80 mmHg. Post Stress Blood Pressure was 162/80 mmHg. Termination: Protocol complete. Resting ECG: Sinus rhythm. Nonspecific T wave abnormality. Post ECG: No diagnostic ST changes. Perfusion Findings: Normal perfusion imaging. No definite fixed or reversible defects. A TID of 0.73 was automatically calculated. LV Function: Global left ventricular function is normal. Left ventricular ejection fraction is 80 %. CONCLUSIONS: Sinus rhythm Nonspecific T wave abnormality. No diagnostic ST changes. Global left ventricular function is normal. Left ventricular ejection fraction is 80 %. Normal perfusion imaging. No definite fixed or reversible defects. A TID of 0.73 was automatically calculated. Electronically Signed By: Leonardo Medina MD, [facility] 2024-06-15 17:19:47 CDT Electronically Signed By: Leonardo Medina MD, [facility] 2024-06-15 17:19:47 CDT Procedure Note Leonardo Medina MD - 06/15/2024 [facility] Medical [facility] Cardiology [address], [place] [address] [address], [place] [address] P:[phone] P:[phone] MPI Imaging Report Patient Name: MAGGIE ERAZO A : 1940 Study Date: 06/15/2024 7:57:40 AM Gender: F Tech: [facility] Location: [facility] Provider: SHERRELL SUNSHINE Height(Cm): 160 BSA: Weight(Kg): 68 BMI: 26.56 Order Provider: SHERRELL SUNSHINE - PHYSICIAN: Referring Physician: Dr. Lin. HCG Physician: Irvin Sunshine M.D.Interpreting Physician: Leonardo Medina M.D.,F.A.C.C. Stress Supervision: Leonardo George M.D.,F.A.C.C. PROCEDURES: Myocardial perfusion imaging with Tc99M Sestamibi SPECT at rest and stresspost regadenoson (Lexiscan) infusion. INDICATIONS: Palpitations. Upper back pain. Coronary Calcification on CT, I25.10Atherosclerotic heart disease of [place] coronary artery without angina pectoris, I35.0Nonrheumatic aortic (valve) stenosis, and Z01.810 Encounter for preprocedural cardiovascularexamination. FINDINGS: Procedural Findings: One day rest/stress was used. Tc99m Sestamibi injected IV at rest was 10.1millicuries. 32.7 millicuries of Tc99M Sestamibi injected IV during Lexiscan stress.Lexiscan 0.4mg administered IV over 10 seconds. Pharmacologic stress related symptomsand/or side effects during infusion include upper back pain 8/10 , transient.Symptoms were resolved with completion of Lexiscan protocol. Baseline heart rate was 65 BPM.Maximum Heart Rate Achieved was: 91 BPM. Baseline blood pressure was 188/80 mmHg. Post StressBlood Pressure was 162/80 mmHg. Termination: Protocol complete. Resting ECG: Sinus rhythm. Nonspecific T wave abnormality. Post ECG: No diagnostic ST changes. Perfusion Findings: Normal perfusion imaging. No definite fixed or reversible defects. A TIDof 0.73 was automatically calculated. LV Function: Global left ventricular function is normal. Left ventricular ejectionfraction is 80 %. CONCLUSIONS: Sinus rhythm Nonspecific T wave abnormality. No diagnostic ST changes. Global left ventricular function is normal. Left ventricular ejectionfraction is 80 %. Normal perfusion imaging. No definite fixed or reversible defects. A TIDof 0.73 was automatically calculated. Electronically Signed By: Leonardo Medina MD, [facility] 2024-06-15 17:19:47 CDT Electronically Signed By: Leonardo Medina MD, [facility] 2024-06-15 17:19:47 CDT Sherrell Sunshine MD IMG NM PROCEDURES Final R esult documented in this encounter Visit Diagnoses Diagnosis Hypertension associated with diabetes (HCC)- Primary Unspecified essential hypertension 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) (HCC) H/O: CVA (cerebrovascular accident) Coronary artery calcification seen on CT scan Nonrheumatic aortic valve stenosis Pre-operative cardiovascular examination Coronary artery calcification seen on CT scan Nonrheumatic aortic valve stenosis Pre-operative cardiovascular examination documented in this encounter Care Teams Professor Of Legal Studies Relationship Specialty Start Date End Date Isreal Lin MD PCP - General Family Practice 08/30/23 documented as of this encounter
--- OUTSIDE RECORDS SUMMARY | 2024-09-25 21:59 | XMS_ITS | Encounter Summary ---
Author Organization [facility] Address [address] [place] [address] Phone Care Team Providers Care Rn Imaging Name Role Phone Isreal Lin MD Primary Care Provider [phone] [phone] Encounter Details Date Type Department Care Team (Late st Contact Info) Description 04/27/2024 Orders Only [facility] - [facility] ENT 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 22 g 3 04/27/2024 documented in this encounter Plan of Treatment Not on file documented as of this encounter Visit Diagnoses Not on filedocumented in this encounter Discontinued Medications Medication Sig Discontinue Reason Start Date End Da te mupirocin (BACTROBAN) 2 % ointment Apply topically 2 (two) times a day Dissolve one inch in nasal irrigation bottle and rinse twice daily. Reorder 01/05/2024 04/27/2024 documented as of this encounter Care Teams Rn Imaging Relationship Specialty Start Date End Date Isreal Lin MD PCP - General Family Practice 08/30/23 documented as of this encounter
--- OUTSIDE RECORDS SUMMARY | 2024-09-25 21:59 | XMS_ITS | Clinical Summary ---
Author Organization [facility] [address] Address [address] [place] [address] Care Team Providers Care Broadcast Maintenance Technician Name Role Phone Isreal Lin MD Primary Care Provider [phone] [phone] Allergies Active Allergy Reactions Criticality Noted Date Comments Adhesive Tape-Silicones Hives Medium 03/16/2013 Codeine Other (See comments) Low 04/21/2012 Acute abd. pain Acute abd. pain, Ezetimibe Muscle pain Medium 09/11/2019 Loratadine-Pseudoephedr ine Other (See comments) Low 11/17/2021 Simvastatin Muscle pain Medium 09/11/2019 Thfqxwb-Uty-Ega Reductase Inhibitors Other (See comments) Low Medications ascorbic acid (ascorbic acid with darlene hips) 500 mg tablet take 1 by Oral route once 0 0 02/20/20 15 Active Additional Information Patient taking differently:500 mgoral Daily with lunch, Indications: supplement, Informant: Self, Reported on 12/01/2023 metFORMIN (GLUCOPHAGE) 500 mg tablet take 1 tablet by oral route 2 times every day with morning and evening meals 0 0 02/20/20 15 Active Additional Information Patient taking differently:500 mgoral 2 times daily with meals (bkfst, dinner), Indications: type 2 diabetes mellitus, Informant: Self, Reported on 12/01/2023 losartan (COZAAR) 50 mg tablet take 1 tablet by oral route every day 0 0 02/20/20 15 Active Additional Information Patient taking differently:50 mgoral Every morning, Indications: hypertension, Informant: Self, Reported on 12/01/2023 multivitamin tablet tablet take 1 tablet by oral route every day with food 0 0 05/13/20 15 Active Additional Information Patient taking differently: 1 tablet oral Every morning, Indications: Vitamin Deficiency Prevention, Informant: Self, Reported on 12/01/2023 calcium carbonate (CALCIUM 600) 1,500 mg (600 mg of elemental calcium) tablet take 1 by Oral route every day 0 0 05/13/20 15 Active Additional Information Patient taking differently: 600 mg of elemental calcium oral Daily after lunch, Indications: Hypocalcemia Prevention, Informant: Self, Reported on 12/01/2023 cycloSPORINE (RESTASIS) 0.05 % ophthalmic emulsionIndica tions:dry eye Administer 1 drop into both eyes 2 (two) times a day Active artificial tears,hypromel lose, 0.3 % dropsIndicatio ns:Dry Eye Administer 1 drop into both eyes daily as needed Active omeprazole (PriLOSEC) 20 mg capsuleIndicat ions:gerd Take 1 capsule (20 mg total) by mouth every morning Active nadoloL (CORGARD) 40 mg tabletIndicati ons:hypertensi on Take 1 tablet (40 mg total) by mouth every morning 08/17/20 20 Active aspirin 81 mg enteric coated tabletIndicati ons:prevention of thrombosis Take 1 tablet (81 mg total) by mouth every morning Active levothyroxine (SYNTHROID) 100 mcg tabletIndicati ons:hypothyroi dism Take 1 tablet (100 mcg total) by mouth yacht captain before breakfast 07/31/20 21 Active ferrous sulfate 325 mg (65 mg of elemental iron) tabletIndicati ons:Iron Deficiency Anemia Take 1 tablet (65 mg of elemental iron total) by mouth every other day In AM 07/26/20 23 Active losartan (COZAAR) 25 mg tabletIndicati ons:hypertensi on Take 1 tablet (25 mg total) by mouth nightly Active ascorbic acid/collagen hydr (COLLAGEN SKIN RENEWAL ORAL)Indicatio ns:supplement Take 1 tablet by mouth every morning Not started Active sod ozuyh-yeakhe-z queez bottle 2,300-700 mg kit Administer 2 sprays into each nostril 2 (two) times a day 1 kit 12/18/19 24 Active collagen, hydrolysate, bovine, (collagen, hydr, bovine,, bulk,) 100 % powder Active nitrofurantoin monohydrate (MACROBID) 100 mg capsule 04/18/20 24 Active budesonide (PULMICORT) 0.5 mg/2 mL nebulizer solution Mix 1 capsule/ampule in 250 mL of saline irrigations ([employer] Sinus Rinse Bottle) and irrigate each nostril with half of the bottle twice daily. 240 mL 6 04/20/20 24 Active Additional Information Patient not taking.Reported on 05/31/2024 mupirocin (BACTROBAN) 2 % ointment APPLY OINTMENT TOPICALLY TWICE DAILY. DISSOLVE 1 INCH IN NASAL IRRIGATION BOTTLE AND RINSE. 22 g 09/25/20 24 Active mupirocin (BACTROBAN) 2 % ointment Apply topically 2 (two) times a day Dissolve one inch in nasal irrigation bottle and rinse twice daily. 22 g 3 04/27/20 24 024 Discontinued Active Problems Problem Noted Date Diagnosed Date Nonrheumatic aortic valve stenosis 05/31/2024 Pre-operative cardiovascular examination 024 Secondary esophageal varices without bleeding (C MS/HCC) 01/06/2024 H/O: CVA (cerebrovascular accident) 08/30/2023 Systolic murmur 08/30/2023 Chronic sinusitis 08/16/2023 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 Dizziness 09/23/2020 Drug-induced gastric ulcer 09/11/2019 Acquired hypothyroidism 08/20/2017 Hepatic cirrhosis 06/22/2016 Overview (01/21/2017): Cirrhosis of liver without ascites, unspecified hepatic cirrhosis type Coronary arteriosclerosis in kiana artery 06/22 Overview (01/21/2017): Coronary artery disease involving kiana coronary artery of kiana heart without angina pectoris Mixed diabetic hyperlipidemi a associated with type 2 diabetes mellitus (CMS/HCC) 06/22/2016 Overview (01/21/2017): DM type 2 with diabetic dyslipidemia Coronary artery calcification seen on CT scan Overview (01/21/2017): Coronary artery calcification seen on CAT scan Benign hypertension 02/19/2015 Overview (01/21/2017): HTN (hypertension), benign Hypertension associated with diabetes 02/19/2015 Overview (01/21/2017): Atherosclerotic cardiovascular disease Other chest pain 02/19/2015 Overview (01/21/2017): Chest pain Palpitations 02/19/2015 Overview (01/21/2017): Palpitations Steatosis of liver 02/19/2015 Overview (01/21/2017): Fatty liver Diabetes mellitus 02/19/2015 Overview (01/21/2017): DM (diabetes mellitus) Resolved Problems Problem Noted Date Diagnosed Date Resolved Date Statin intolerance 06/22/2016 Overview (01/21/2017): Statin intolerance Dyslipidemia 02/19/2015 08/06/2021 Overview (01/21/2017): Dyslipidemia Surgical History Surgery Date Site/Laterality Comments COLONOSCOPY 10/11/2021 - 10/10/2022 APPENDECTOMY 10/11/1961 - 10/10/1962 BRONCHOSCOPY 10/11/2021 - 10/10/2022 CHOLECYSTECTOMY 08/06/1962 SINUS SURGERY 09/28/2021 MENISCUS SURGERY 10/11/2021 - 10/10/2022 Left VARICOSE VEIN SURGERY Bilateral unknown surgery; multiple CYST REMOVAL Right off finger on right hand; unknown date Medical History Medical History Date Comments Hypertension Allergic rhinitis Sinusitis 2003 Dental disease 1999 Dizziness 2003 Nosebleed 2010 Tinnitus 2003 Headache 2003 Liver disease 2012 Deep vein thrombosis (CMS/HCC) (HCC) 2014 Anemia 2021 Diabetes mellitus (HCC) 2003 Cirrhosis (HCC) 2015 Delayed emergence from general anesthesia pt reports slow to wake up many years ago after colonscopy, pt states she went home same day and has done fine since then with other procedures Arthritis Cancer (CMS/HCC) (HCC) 2023 Cataract 2021 Family History Medical History Relation Name Comments Alcohol abuse Brother Fredeom Salgado Alzheimer's disease Father Mayela Alzheime r's disease; Arthritis Father Mayela Kidney disease Father Mayela Kidney failure Father Mayela Kidney failur e; Cause of : Kidney failure Diabetes Mother Brianna Villaseñor Hypertension Mother Brianna Villaseñor Hypertension; Stroke Mother Brianna Villaseñor Stroke; Anesthesia problems Neg Hx Relation Name Status Comments Brother Freedom Salgado Father Mayela Mother Brianna Villaseñor Social History Tobacco Use Types Packs/Day Years [...] on file Legal Sex Female 3:37 AM [employer] Gender Identity Female 01/28/2024 11:49 PM CDT Sexual Orientation Straight 08/12/2022 12 :04 PM CDT Obstetrics History Last Filed Vital Signs Vital Sign Reading Time Taken Comments Blood Pressure 132/74 05/31/2024 12:56 PM CDT Pulse 66 05/31/2024 12:56 PM CDT Temperature 36 ??C (96.8 ??F) 12/17/2023 1:10 PM [employer] [employer] Respiratory Rate 16 05/31/2024 12:56 PM CDT Oxygen Saturation 96% 12/17/2023 3:10 PM [employer] [employer] Inhaled Oxygen Concentration - - Weight 68 kg (150 lb) 05/31/2024 12:56 PM CDT Height 160 cm (5' 3 ) 05/31/2024 12:56 PM CDT Body Mass Index 26.57 05/31/2024 12:56 PM CDT Plan of Treatment Health Maintenance Due Date Last Done Comments Albumin Creatinine Ratio, Urine 1941 Depression Screening 1941 Hemoglobin A1C 1941 Osteoporosis Screening-Bone Density Scan 1941 eGFR 1941 Dilated Eye Exam 1941 Foot Exam 1941 Hepatitis B Screening 1959 Well Visit 65+ 2006 DTaP/Tdap/Td Vaccine (3 - Td or Tdap) 08/12/2021 08/12/2011, 10/11/2010 Influenza Vaccine (#1) 2024 0, 08/02/2019, 08/30/2018, Additional history exists Fall Risk Assessment 12/16/2024 12/17/2023 Lipid Panel 02/16/2025 02/17/2024, 08/12, 02/09/2022, Additional history exists Pneumococcal vaccine 65+ Completed 019, 04/11/2019, 08/12/2011, Additional history exists Zoster Vaccine Completed 08/11/2019, 05/01/2019 Procedures Procedure Name Priority Date/Time Associated Diagnosis Comments LIPID PANEL Routine 02/17/2024 2:11 PM CDT from Last 3 Months or Most Recently Relevant to Health Maintenance Results * Lipid panel (02/17/2024 2:11 PM CDT) SCRIBED Cholesterol, Total 153 0 - 200 EXTERNAL LAB SCRIBED HDL 47 40 - 100 EXTERNAL LAB SCRIBED LDL 89 0 - 100 EXTERNAL LAB SCRIBED Triglycerides 103 0 - 150 EXTERNAL LAB Blood us Historical Provider LAB BLOOD ORDERABLES Edit ed Result - Final EXTERNAL LAB from Last 3 Months or Most Recently Relevant to Health Maintenance Insurance MEDICARE MEDICARE [facility] MEDICARE [facility] FEDERAL Care Teams Broadcast Maintenance Technician Relationship Specialty Start Date End Date Isreal Lin MD PCP - General Family Practice 08/30/23
--- OUTSIDE RECORDS SUMMARY | 2024-09-25 21:59 | XMS_ITS | Encounter Summary ---
Author Organization [facility] Address [address] [place] [address] Phone Care Team Providers Care Outbound Sales Consultant Name Role Phone Isreal Lin MD Primary Care Provider [phone] [phone] Reason for Visit * Reason Comments chronic pansinusitis 8 week follow up Encounter Details Date Type Department Care Team (Late st Contact Info) Description 06/14/2024 1:00 PM CDT Office Visit [facility] ENT [address] [place] [address] Samir Khan MD [address] [place] [address] Chronic pansinusitis (Primary Dx) Social History Tobacco Use Types Packs/Day Years Used Date Smoking Tobacco: Never Cigarettes Smokeless Tobacco: Never Alcohol Use Standard Drinks/Week [...] on file 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 HISTORY OF PRESENT ILLNESS Ms. Erazo returns to clinic today for evaluation of ongoing, Severe: chronic pansinusitis At the last visit, the treatment included: mupirocin irrigations Since then, Ms. Erazo has experienced some improvement her symptoms. Past Medical/Surgical History Past Medical History: Diagnosis Date Allergic rhinitis Anemia 2021 Arthritis Cancer (CMS/HCC) (HCC) 2023 Cataract 2021 Cirrhosis (HCC) 2014 Deep vein thrombosis (CMS/HCC) (HCC) 2013 Delayed emergence from general anesthesia pt reports slow to wake up many years ago after colonscopy, pt states she went home same day and has done fine since then with other procedures Dental disease 1999 Diabetes mellitus (HCC) 2003 Dizziness 2002 Headache 2002 Hypertension Liver disease 2011 Nosebleed 2009 Sinusitis 2002 Tinnitus 2002 Past Surgical History: Procedure Laterality Date APPENDECTOMY 1961 BRONCHOSCOPY 2021 CHOLECYSTECTOMY 08/06/1962 COLONOSCOPY 2021 CYST REMOVAL Right off finger on right hand; unknown date MENISCUS SURGERY Left 2021 SINUS SURGERY 09/28/2021 VARICOSE VEIN SURGERY Bilateral unknown surgery; multiple Past Family/Social History Family History Problem Relation Age of Onset Stroke Mother Stroke; Hypertension Mother Hypertension; Diabetes Mother Alzheimer's disease Father Alzheimer's disease; Kidney failure Father 91 Kidney failure; Cause of : Kidney failure Arthritis Father Kidney disease Father Alcohol abuse Brother Anesthesia problems Neg Hx Social History Tobacco Use Smoking status: Never Smokeless tobacco: Never Substance and Sexual Activity Drug use: Never Sexual activity: Not Currently Partners: Male Alcohol Use: Unknown (12/01/2023) AUDIT-C Frequency of Alcohol Consumption: Not on file Average Number of Drinks: Patient does not drink Frequency of Binge Drinking: Not on file Medications/Allergies/Immunizations Current Outpatient Medications Medication Sig Dispense Refill artificial tears,hypromellose, 0.3 % drops Administer 1 drop into both eyes daily as needed ascorbic acid (ascorbic acid with darlene hips) 500 mg tablet take 1 by Oral route once (Patient taking differently: Take 1 tablet/chew tab (500 mg total) by mouth daily with lunch) 0 0 ascorbic acid/collagen hydr (COLLAGEN SKIN RENEWAL ORAL) Take 1 tablet by mouth every morning Not started aspirin 81 mg enteric coated tablet Take 1 tablet (81 mg total) by mouth every morning calcium carbonate (CALCIUM 600) 1,500 mg (600 mg of elemental calcium) tablet take 1 by Oral route every day (Patient taking differently: Take 1 tablet (1,500 mg total) by mouth daily after lunch) 0 0 collagen, hydrolysate, bovine, (collagen, hydr, bovine,, bulk,) 100 % powder cycloSPORINE (RESTASIS) 0.05 % ophthalmic emulsion Administer 1 drop into both eyes 2 (two) times aday ferrous sulfate 325 mg (65 mg of elemental iron) tablet Take 1 tablet (65 mg of elemental iron total) by mouth every other day In AM levothyroxine (SYNTHROID) 100 mcg tablet Take 1 tablet (100 mcg total) by mouth turn operator before breakfast losartan (COZAAR) 25 mg tablet Take 1 tablet (25 mg total) by mouth nightly losartan (COZAAR) 50 mg tablet take 1 tablet by oral route every day (Patient taking differently: Take 1 tablet (50 mg total) by mouth every morning) 0 0 metFORMIN (GLUCOPHAGE) 500 mg tablet take 1 tablet by oral route 2 times every day with morning andevening meals (Patient taking differently: Take 1 tablet (500 mg total) by mouth 2 (two) times a day with meals) 0 0 multivitamin tablet tablet take 1 tablet by oral route every day with food (Patient taking differently: Take 1 tablet by mouth every morning) 0 0 mupirocin (BACTROBAN) 2 % ointment Apply topically 2 (two) times a day Dissolve one inch in nasal irrigation bottle and rinse twice daily. 22 g 3 nadoloL (CORGARD) 40 mg tablet Take 1 tablet (40 mg total) by mouth every morning omeprazole (PriLOSEC) 20 mg capsule Take 1 capsule (20 mg total) by mouth every morning sod yvhrk-cvbtep-owlpbk bottle 2,300-700 mg kit Administer 2 sprays into each nostril 2 (two) timesa day 1 kit 0 budesonide (PULMICORT) 0.5 mg/2 mL nebulizer solution Mix 1 capsule/ampule in 250 mL of saline irrigations ([employer] Sinus Rinse Bottle) and irrigate each nostril with half of the bottle twice daily. (Patient not taking: Reported on 05/31/2024) 240 mL 6 nitrofurantoin monohydrate (MACROBID) 100 mg capsule (Patient not taking: Reported on 05/31/2024) No current facility-administered medications for this visit. Allergies: Adhesive tape-silicones, Ezetimibe, Simvastatin, Codeine, Loratadine- pseudoephedrine, and Zrylcvq-fus-uus reductase inhibitors, Immunizations: There is no immunization history on file for this patient. PHYSICAL EXAMINATION: GENERAL: Well-developed, well-nourished. Voice quality is normal. NEURO/PSYCH: Cranial nerves II- XII are grossly normal. Affect is normal. Alert and oriented. Extraocular muscles are intact. HEAD/FACE: Normocephalic; atraumatic. No facial skin lesions. Facial strength is 5/5 and the face is symmetric. NOSE: External nose has no skin lesions. Anterior rhinoscopy is limited by obstructive anatomy, please see endoscopy below. MUSCULOSKELATAL: Ambulates without difficulty. Neck full range of motion. RESPIRATORY: Breathing comfortably without audible wheeze, stertor or stridor. PROCEDURE: Nasal Endoscopy: Indications: Due to inadequate visualization of the entire nasal cavity on anterior rhinoscopy, rigid nasal endoscopy was undertaken. Description: After topical nasal decongestant and anesthesia was applied, a 30 degree 4mm rigid nasal endoscope was used to examine the right and left nasal cavity. TTopical nasal decongestant and anesthesia was applied, a 30 degree 4mm rigid nasal endoscope was introduced into the right and left nasal cavity. The interior of the nasal cavity from the nostril to the nasopharynx was inspected. Thenasal valve areas were examined for abnormalities or collapse. The inferior, middle, and superior turbinates were evaluated. The middle and superior meatuses, the sphenoethmoid recesses, and the nasopharynx bilaterally were inspected for mucopurulence, polyps, mucosal lesions, and masses. The surgically opened sinus cavities were inspected for mucosal changes. FINDINGS: Improved crusting and edema of the paranasal sinuses from prior exams RESULTS: None. ASSESSMENT & PLAN: Problem List Items Addressed This Visit Chronic sinusitis - Primary - Continue Mupirocin irrigations - Follow-up in 3 months Samir Khan M.D., M.A., F.A.C.S. Radiologist Physician and Shop Firer/Fireman Rhinology and Anterior Skull Base Surgery [facility] of [address] [address] - Office - Appointments - Clinical coordinator (Sheron Uribe LPN) - Clinical fax - Academic office fax EMAIL: [email or web address] documented in this encounter Plan of Treatment Not on file documented as of this encounter Visit Diagnoses Diagnosis Chronic pansinusitis- Primary Other chronic sinusitis documented in this encounter Care Teams Outbound Sales Consultant Relationship Specialty Start Date End Date Isreal Lin MD PCP - General Family Practice 08/30/23 documented as of this encounter
--- OUTSIDE RECORDS SUMMARY | 2024-09-25 21:59 | XMS_ITS | Encounter Summary ---
Author Organization [facility] Address [address] [place] [address] Phone Care Team Providers Care Surveyor Helper Name Role Phone Isreal Lin MD Primary Care Provider [phone] [phone] Encounter Details Date Type Department Care Team (Late st Contact Info) Description 04/19/2024 3:00 PM CDT Office Visit [facility] ENT [address] [facility] Medical Office [address] [place] [address] Samir Khan MD [address] [place] [address] Chronic pansinusitis (Primary Dx); Secondary esophageal varices without bleeding (CMS/HCC) (HCC); Hypertension associated with diabetes (HCC) Social History Tobacco Use Types Packs/Day [...] on file 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 Gender Identity Female 01/28/2024 11:49 PM CDT Sexual Orientation Straight 08/12/2022 12 :04 PM CDT documented as of this encounter Last Filed Vital Signs Vital Sign Reading Time Taken Comments Blood Pressure - - Pulse - - Temperature - - Respiratory Rate - - Oxygen Saturation - - Inhaled Oxygen Concentration - - Weight 68 kg (150 lb) 04/19/2024 3:04 PM CDT Pt states Height 160 cm (5' 3 ) 04/19/2024 3:04 PM CDT Pt states Body Mass Index 26.57 04/19/2024 3:04 PM CDT documented in this encounter Progress Notes * Samir Khan MD - 04/19/2024 3:00 PM CDT Images from the original note were not included. HISTORY OF PRESENT ILLNESS Ms. Erazo returns to clinic today for evaluation of ongoing, Severe: chronic pansinusitis At the last visit, the treatment included: mupirocin irrigations and Levaquin. She also recently developed a UTI and is currently on Macrobid. Since then, Ms. Erazo has experienced some improvement her symptoms. She is going on a trip to [place] and [place] to visit family. Past Medical/Surgical History Past Medical History: Diagnosis Date Allergic rhinitis Anemia 2021 Cirrhosis (HCC) 2014 Deep vein thrombosis (CMS/HCC) (HCC) 2014 Delayed emergence from general anesthesia pt reports slow to wake up many years ago after colonscopy, pt states she went home same day and has done fine since then with other procedures Dental disease 1999 Diabetes mellitus (HCC) 2002 Dizziness 2002 Headache 2002 Hypertension Liver disease 2012 Nosebleed 2009 Sinusitis 2002 Tinnitus 2002 Past Surgical History: Procedure Laterality Date APPENDECTOMY 1961 BRONCHOSCOPY 2021 CHOLECYSTECTOMY 08/06/1962 COLONOSCOPY 2021 CYST REMOVAL Right off finger on right hand; unknown date MENISCUS SURGERY Left 2021 SINUS SURGERY 09/28/2021 VARICOSE VEIN SURGERY Bilateral unknown surgery; multiple Past Family/Social History Family History Problem Relation Age of Onset Stroke Mother Stroke; Hypertension Mother Hypertension; Alzheimer's disease Father Alzheimer's disease; Kidney failure Father 91 Kidney failure; Cause of : Kidney failure Anesthesia problems Neg Hx Social History Tobacco Use Smoking status: Never Smokeless tobacco: Never Substance and Sexual Activity Drug use: Never Sexual activity: Defer Partners: Male Alcohol Use: Unknown (12/01/2023) AUDIT-C Frequency of Alcohol Consumption: Not on file Average Number of Drinks: Patient does not drink Frequency of Binge Drinking: Not on file Medications/Allergies/Immunizations Current Outpatient Medications Medication Sig Dispense Refill nitrofurantoin monohydrate (MACROBID) 100 mg capsule artificial tears,hypromellose, 0.3 % drops Administer 1 [...] (81 mg total) by mouth every morning budesonide (PULMICORT) 0.5 mg/2 mL nebulizer solution Mix 1 capsule/ampule in 250 mL of saline irrigations (NeilMed Sinus Rinse Bottle) and irrigate each nostril with half of the bottle twice daily. (Patient taking differently: 2 mL (0.5 mg total) 2 (two) times a day Mix 1 capsule/ampule in 250 mL of saline irrigations (NeilMed Sinus Rinse Bottle) and irrigate each nostril with half of the bottletwice daily.) 120 mL 6 calcium carbonate (CALCIUM 600) 1,500 mg (600 [...] 1 tablet (100 mcg total) by mouth shopping centre manager before breakfast losartan (COZAAR) 25 mg tablet [...] mg total) by mouth every morning sod sfauz-fmrnck-dwvslc bottle 2,300-700 mg kit Administer 2 sprays into each nostril 2 (two) timesa day 1 kit 0 No current facility-administered medications for this visit. Allergies: Adhesive tape-silicones, Ezetimibe, Simvastatin, Codeine, Loratadine- pseudoephedrine, and Xtdqtnd-pmi-bxe reductase inhibitors, Immunizations: There is no immunization [...] of the paranasal sinuses from prior exams without иван purulence. RESULTS: None. ASSESSMENT & PLAN: Problem List Items Addressed This Visit Chronic sinusitis - Primary - Continue Mupirocin irrigations - Follow-up in 8 weeks; may consider another course of Levaquin in the future given her improvement ATTENDING ATTESTATION: I have seen and examined the patient. I performed the endoscopy. I agree with the findings and planof care as documented in the resident's note. Samir Khan M.D., M.A., F.A.C.S. Special Needs Caregiver and Flower Buncher Or Picker Rhinology and Anterior Skull Base Surgery [facility] [address] [place] [id number] - Office - Appointments - Clinical coordinator (Sheron Uribe LPN) - Clinical fax - Academic office fax EMAIL: [email or web address] documented in this encounter Plan of Treatment Not on file documented as of this encounter Visit Diagnoses Diagnosis Chronic pansinusitis- Primary Other chronic sinusitis Secondary esophageal varices without bleeding (CMS/HCC) (HCC) Hypertension associated with diabetes (HCC) Unspecified essential hypertension documented in this encounter Historical Medications * This list may reflect changes made after this encounter. Medication Sig Dispense Quantity Refills Last Filled Start D ate End Date nitrofurantoin monohydrate (MACROBID) 100 mg capsule 04/18/2024 added in this encounter Care Teams Surveyor Helper Relationship Specialty Start Date End Date Isreal Lin MD PCP - General Family Practice 08/30/23 documented as of this encounter
--- OUTSIDE RECORDS SUMMARY | 2024-09-25 21:59 | XMS_ITS | Encounter Summary ---
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 Gender Identity Female 01/28/2024 11:49 PM CDT Sexual Orientation Straight 08/12/2022 12 :04 PM CDT documented as of this encounter Plan of Treatment Not on file documented as of this encounter Procedures Procedure Name Priority Date/Time Associated Diagnosis Comments LIPID PANEL Routine 02/17/2024 2:11 PM CDT documented in this encounter Results * Lipid panel (02/17/2024 2:11 PM CDT) SCRIBED Cholesterol, Total 153 0 - 200 EXTERNAL LAB SCRIBED HDL 47 40 - 100 EXTERNAL LAB SCRIBED LDL 89 0 - 100 EXTERNAL LAB SCRIBED Triglycerides 103 0 - 150 EXTERNAL LAB Blood us Historical Provider LAB BLOOD ORDERABLES Edit ed Result - Final EXTERNAL LAB documented in this encounter Visit Diagnoses Not on filedocumented in this encounter Care Teams Blood Bank Order Control Clerk Relationship Specialty Start Date End Date Isreal Lin MD PCP - General Family Practice 08/30/23 documented as of this encounter
--- OUTSIDE RECORDS SUMMARY | 2024-09-25 21:59 | XMS_ITS | Encounter Summary ---
Author Organization [facility] Address [address] [place] [address] Phone Care Team Providers Care Health Center Associate Name Role Phone Isreal Lin MD Primary Care Provider [phone] [phone] Reason for Visit * Reason Comments Follow-up R14 Encounter Details Date Type Department Care Team (Late st Contact Info) Description 02/02/2024 1:00 PM CDT Office Visit [facility] ENT [address] [facility] Medical Office [address] [place] [address] Samir Khan MD [address] [place] [address] Chronic pansinusitis (Primary Dx) Social [...] on file 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 HISTORY OF PRESENT ILLNESS Ms. Erazo returns to clinic today for evaluation of ongoing, Severe: chronic pansinusitis At the last visit, the treatment included: antibiotics Since then, Ms. Erazo has experienced improvement in the bad smell in her sinuses. Past Medical/Surgical History Past Medical History: Diagnosis [...] capsule/ampule in 250 mL of saline irrigations ([employer] Sinus Rinse Bottle) and irrigate each nostril with half of the bottle twice daily. (Patient taking differently: 2 mL (0.5 mg total) 2 (two) times a day Mix 1 capsule/ampule in 250 mL of saline irrigations ([employer] Sinus Rinse Bottle) and irrigate each nostril with half of the bottletwice daily.) 120 mL 6 calcium carbonate (CALCIUM 600) 1,500 mg (600 mg of elemental calcium) tablet take 1 by Oral route every day (Patient taking differently: Take 1 tablet (1,500 mg total) by mouth daily after lunch) 0 0 cycloSPORINE (RESTASIS) 0.05 % ophthalmic emulsion Administer 1 drop into both eyes 2 (two) times aday ferrous sulfate 325 mg (65 mg of elemental iron) tablet Take 1 tablet (65 mg of elemental iron total) by mouth every other day In AM levothyroxine (SYNTHROID) 100 mcg tablet Take 1 tablet (100 mcg total) by mouth circulation sales representative before breakfast losartan (COZAAR) 25 mg tablet [...] mg total) by mouth every morning sod ceoht-jlbqwt-qetmkt bottle 2,300-700 mg kit Administer 2 sprays into each nostril 2 (two) timesa day 1 kit 0 No current facility-administered medications for this visit. Allergies: Adhesive tape-silicones, Ezetimibe, Simvastatin, Codeine, Loratadine- pseudoephedrine, and Ubikzpj-jil-jgx reductase inhibitors, Immunizations: There is no immunization [...] rhinoscopy, rigid nasal endoscopy was undertaken. Description: Topical nasal decongestant and anesthesia was applied, a 30 degree 4mm rigid nasal endoscope was introduced into the right and left nasal cavity. The interior of the nasal cavity from the nostril to the nasopharynx was inspected. The nasal valve areas were examined for abnormalities orcollapse. The inferior, middle, and superior turbinates were evaluated. The middle and superior meatuses, the sphenoethmoid recesses, and the nasopharynx bilaterally were inspected for mucopurulence,polyps, mucosal lesions, and masses. Findings: Decreased mucous bilaterally RESULTS: none ASSESSMENT & PLAN: Problem List Items Addressed This Visit Chronic sinusitis - Primary Continue mupirocin irrigations and f/u in one month Samir Khan M.D., M.A., F.A.C.S. Investigator Fraud and Funeral Counselor Rhinology and Anterior Skull Base Surgery [facility] [address] [place] [id number] - Office - Appointments - Clinical coordinator (Sheron Uribe LPN) - Clinical fax - Academic office fax EMAIL: [email or web address] documented in this encounter Plan of Treatment Not on file documented as of this encounter Visit Diagnoses Diagnosis Chronic pansinusitis- Primary Other chronic sinusitis documented in this encounter Discontinued Medications Medication Sig Discontinue Reason Start Date End Da te oxyCODONE (ROXICODONE) 5 mg immediate release tabletIndications:Pain Take 1 tablet (5 mg total) by mouth every 4 (four) hours as needed for pain 12/17/2023 02/02/2024 documented as of this encounter Care Teams Health Center Associate Relationship Specialty Start Date End Date Isreal Lin MD PCP - General Family Practice 08/30/23 documented as of this encounter
--- OUTSIDE RECORDS SUMMARY | 2024-09-25 21:59 | XMS_ITS | Encounter Summary ---
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
--- OUTSIDE RECORDS SUMMARY | 2024-09-25 21:59 | XMS_ITS | Encounter Summary ---
Author Organization [facility] Address [address] [place] [address] Phone Care Team Providers Care Gun Stock Checker Name Role Phone Isreal Lin MD Primary Care Provider [phone] [phone] Reason for Visit * Reason Comments Chronic pansinusitis Encounter Details Date Type Department Care Team (Late st Contact Info) Description 03/15/2024 11:40 AM CDT Office Visit [facility] ENT [address] [facility] Medical Office Building [address] [place] [address] Samir Khan MD [address] [place] [address] Chronic pansinusitis (Primary Dx) Social [...] on file 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 HISTORY OF PRESENT ILLNESS Ms. Erazo returns to clinic today for evaluation of ongoing, Severe: chronic pansinusitis At the last visit, the treatment included: mupirocin irrigations Since then, Ms. Erazo has experienced no change Past Medical/Surgical History Past Medical History: Diagnosis [...] by mouth every other day In AM levoFLOXacin (LEVAQUIN) 750 mg tablet Take 1 tablet (750 mg total) by mouth daily for 10 days 10 tablet 0 levothyroxine (SYNTHROID) 100 mcg tablet Take 1 tablet (100 mcg total) by mouth vending route servicer before breakfast losartan (COZAAR) 25 mg tablet [...] mg total) by mouth every morning sod cqmca-ksdkvh-dkbtfp bottle 2,300-700 mg kit Administer 2 sprays into each nostril 2 (two) timesa day 1 kit 0 No current facility-administered medications for this visit. Allergies: Adhesive tape-silicones, Ezetimibe, Simvastatin, Codeine, Loratadine- pseudoephedrine, and Bpabdua-wau-tuj reductase inhibitors, Immunizations: There is no immunization [...] for mucopurulence,polyps, mucosal lesions, and masses. Findings: Stable mucous and edema of the sinuses. RESULTS: none ASSESSMENT & PLAN: Problem List Items Addressed This Visit Chronic sinusitis - Primary Continue mupirocin irrigations and f/u in one month We will add 10 days of levaquin to see if this helps the infection Samir Khan M.D., M.A., F.A.C.S. Director Recreation Center and Maintenance Truck Driver Rhinology and Anterior Skull Base Surgery [facility] [address] [place] [address] - Office - Appointments - Clinical coordinator (Sheron Uribe LPN) - Clinical fax - Academic office fax EMAIL: [email or web address] documented in this encounter Plan of Treatment Not on file documented as of this encounter Visit Diagnoses Diagnosis Chronic pansinusitis- Primary Other chronic sinusitis documented in this encounter Historical Medications * This list may reflect changes made after this encounter. Medication Sig Dispense Quantity Refills Last Filled Start D ate End Date collagen, hydrolysate, bovine, (collagen, hydr, bovine,, bulk,) 100 % powder added in this encounter Care Teams Gun Stock Checker Relationship Specialty Start Date End Date Isreal Lin MD PCP - General Family Practice 08/30/23 documented as of this encounter
--- OUTSIDE RECORDS SUMMARY | 2024-09-25 21:59 | XMS_ITS | Referral Summary ---
Author Organization [facility] [address] Address [address] [place] [address] Care Team Providers Care Human Resources Psychologist Name Role Phone Isreal Lin MD Primary Care Provider [phone] [phone] Allergies Active Allergy Reactions Criticality Noted Date Comments Adhesive Tape-Silicones Hives Medium 03/16/2013 Codeine Other (See comments) Low 04/21/2012 Acute abd. pain Acute abd. pain, Ezetimibe Muscle pain Medium 09/11/2019 Loratadine-Pseudoephedr ine Other (See comments) Low 11/17/2021 Simvastatin Muscle pain Medium 09/11/2019 Gapnqqr-Cfx-Sta Reductase Inhibitors Other (See comments) Low Medications [...] 1 tablet (100 mcg total) by mouth truckload owner operator before breakfast 07/31/20 21 Active ferrous sulfate [...] mouth every morning Not started Active sod aqpms-vtmpqp-u queez bottle 2,300-700 mg kit Administer 2 sprays into each nostril 2 (two) times a day 1 kit 12/18/19 24 Active collagen, hydrolysate, bovine, (collagen, hydr, bovine,, bulk,) 100 % powder Active nitrofurantoin monohydrate (MACROBID) 100 mg capsule 04/18/20 24 Active budesonide (PULMICORT) 0.5 mg/2 mL nebulizer solution Mix 1 capsule/ampule in 250 mL of saline irrigations ([employer] Sinus Rinse Bottle) and irrigate each nostril [...] unspecified hepatic cirrhosis type Coronary arteriosclerosis in [place] artery 06/22 Overview (01/21/2017): Coronary artery disease involving [place] coronary artery of [place] heart without angina pectoris Mixed diabetic hyperlipidemi [...] Diagnosed Date Resolved Date Statin intolerance 06/22/2016 2 Overview (01/21/2017): Statin intolerance Dyslipidemia 02/19/2015 08/06/2021 Overview (01/21/2017): Dyslipidemia Social History Tobacco Use Types Packs/Day Years [...] on file 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 Gender Identity Female 01/28/2024 11:49 PM CDT Sexual Orientation Straight 08/12/2022 12 :04 PM CDT Last Filed Vital Signs Vital Sign Reading Time Taken Comments Blood Pressure 132/74 05/31/2024 12:56 PM CDT Pulse 66 05/31/2024 12:56 PM CDT Temperature 36 ??C (96.8 ??F) 12/17/2023 1:10 PM MEDICAL RECORD SPECIALIST Respiratory Rate 16 05/31/2024 12:56 PM CDT Oxygen Saturation 96% 12/17/2023 3:10 PM MEDICAL RECORD SPECIALIST Inhaled Oxygen Concentration - - Weight 68 kg (150 lb) 05/31/2024 12:56 PM CDT Height 160 cm (5' 3 ) 05/31/2024 12:56 PM CDT Body Mass Index 26.57 05/31/2024 12:56 PM CDT Plan of Treatment Not on file Procedures Procedure Name Priority Date/Time Associated Diagnosis [...] BLOOD ORDERABLES Edit ed Result - Final Performing Organization Address City/State/[facility] Co de Phone Number EXTERNAL LAB from Last 3 Months or Most Recently Relevant to Health Maintenance Insurance MEDICARE MEDICARE [facility] MEDICARE [facility] [employer] Care Teams Human Resources Psychologist Relationship Specialty Start Date End Date Isreal Lin MD PCP - General Family Practice 08/30/23
--- OUTSIDE RECORDS SUMMARY | 2024-09-25 21:59 | XMS_ITS | Encounter Summary ---
Author Organization [facility] Address [address] [place] [address] Phone Care Team Providers Care Rest Room Attendant Name Role Phone Isreal Lin MD Primary Care Provider [phone] [phone] Encounter Details Date Type Department Care Team (Late st Contact Info) Description 04/20/2024 Orders Only [facility] ENT [address] [facility] [address] [place] [address] [place] [address] Samir Khan MD [address] [place] [address] Social History Tobacco Use Types [...] on file 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 240 mL 6 04/20/2024 documented in this encounter Plan of Treatment Not on file documented as of this encounter Visit Diagnoses Not on filedocumented in this encounter Discontinued Medications Medication Sig Discontinue Reason Start Date End Da te budesonide (PULMICORT) 0.5 mg/2 mL nebulizer solution Mix 1 capsule/ampule in 250 mL of saline irrigations (NeilMed Sinus Rinse Bottle) and irrigate each nostril with half of the bottle twice daily. Reorder 08/16/2023 04/20/2024 documented as of this encounter Care Teams Rest Room Attendant Relationship Specialty Start Date End Date Isreal Lin MD PCP - General Family Practice 08/30/23 documented as of this encounter
--- OUTSIDE RECORDS SUMMARY | 2024-09-25 21:59 | XMS_ITS | Encounter Summary ---
Author Organization [facility] Healthcare Address [address] [place] [address] Care Team Providers Care Visual Lead Name Role Phone Isreal Lin MD Primary Care Provider [phone] Reason for Visit * Diagnostic Imaging (Routine) - Closed Specialty Diagnoses / Procedures Referred By Contac t Referred To Contact Diagnoses Coronary artery calcification seen on CT scan Nonrheumatic aortic valve stenosis Pre-operative cardiovascular examination Procedures NM MPI SPECT (Rest and/or Stress) Multiple Studies NM TC99M SESJAMEELMISherrell Ken MD [address] [address] Phone: tel: fax: [facility] Medical Group Referral ID Status Reason Start Date Expiration Date Visits Re quested Visits Authorized [id number] Closed 05/31/2024 06/30/2025 1 1 Encounter Details Date Type Department Care Team (Latest Contact Info) Description 06/15/2024 8:15 AM CDT Ancillary Procedure [facility] Medical Group Cardiology [address] [facility] [address] [place] [id number] Coronary artery calcification seen on CT scan; [...] on file 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 Gender Identity Female 01/28/2024 11:49 PM CDT Sexual Orientation Straight 08/12/2022 12 :04 PM CDT documented as of this encounter Plan of Treatment Not on file documented as of this encounter Procedures Procedure Name Priority Date/Time Associated Diagnosis Comments NM MPI SPECT (REST AND/OR STRESS) MULTIPLE STUDIES Schedule Routine, Read Routine (OP Routine) 06/15/2024 9:45 AM CDT Coronary artery calcification seen on CT scan Nonrheumatic aortic valve stenosis Pre-operative cardiovascular examination documented in this encounter Results * NM MPI SPECT (Rest and/or Stress) Multiple Studies (06/15/2024 9:45 AM CDT) Anatomical Region Laterality Modality Body N/A Nuclear Medicine 06/15/2024 7:57 AM CDT Narrative 06/15/2024 5:20 PM CDT [facility] Medical [facility] Cardiology [address] [facility] [address], [place] [address] [address] [facility] [address], [place] [address] P:[phone] P:[phone] MPI Imaging Report Patient Name: MAGGIE ERAZO A : 1940 Study Date: 06/15/2024 7:57:40 AM Gender: F Tech: CLARISA MALLORY Location: [facility] Provider: SHERRELL SUNSHINE ?Height(Cm): 160 BSA: ??Weight(Kg): 68 BMI: 26.56 ?Order Provider: SHERRELL SUNSHINE - PHYSICIAN: Referring Physician: Dr. Lin. HCG Physician: Irvin Sunshine M.D. Interpreting Physician: Leonardo Medina M.D.,RainaA.CYsabelC. Stress Supervision: Leonardo Medina M.D.,ReggieCMichael. PROCEDURES: Myocardial perfusion imaging with Tc99M Sestamibi SPECT at rest and stress post regadenoson (Lexiscan) infusion. INDICATIONS: Palpitations. Upper back pain. 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 Electronically Signed By: Leonardo Medina MD, [facility] 2024-06-15 17:19:47 CDT Electronically Signed By: Leonardo Medina MD, [facility] 2024-06-15 17:19:47 CDT Procedure Note Leonardo Medina MD - 06/15/2024 [facility] Medical [facility] Cardiology [address], [place] [address] [address] [facility] [address], [place] [address] P:[phone] P:[phone] MPI Imaging Report Patient Name: MAGGIE ERAZO A : 1940 Study Date: 06/15/2024 7:57:40 AM Gender: F Tech: [facility] Location: [facility] Provider: SHERRELL SUNSHINE Height(Cm): 160 BSA: Weight(Kg): 68 BMI: 26.56 Order Provider: SHERRELL SUNSHINE - PHYSICIAN: Referring Physician: Dr. Lin. HCG Physician: Irvin Sunshine M.D.Interpreting Physician: Leonardo Medina M.D.,F.A.C.C. Stress Supervision: Leonardo George M.D.,F.A.C.C. PROCEDURES: Myocardial perfusion imaging with Tc99M Sestamibi SPECT at rest and stresspost regadenoson (Lexiscan) infusion. INDICATIONS: Palpitations. Upper back pain. Coronary Calcification on CT, I25.10Atherosclerotic heart disease of [place] coronary artery without angina pectoris, I35.0Nonrheumatic aortic [...] calculated. Electronically Signed By: Leonardo Medina MD, [facility] 2024-06-15 17:19:47 CDT Electronically Signed By: Leonardo Medina MD, [facility] 2024-06-15 17:19:47 CDT Sherrell Sunshine MD IMG NM PROCEDURES Final R esult documented in this encounter Visit Diagnoses Diagnosis Coronary artery calcification seen on CT scan Nonrheumatic aortic valve stenosis Pre-operative cardiovascular examination documented in this encounter Administered Medications Inactive Administered Medications - up to 3 most recent administrations Medication Order MAR Action Action Date Dose Rate Site regadenoson (LEXISCAN) 0.4 mg/5 mL injection 0.4 mg 0.4 mg, intravenous, Once, On Indira 06/15/24 at 1030, For 1 dose, Administer IV push over 10 seconds., Indications: Myocardial Perfusion Imaging AdjunctIndications:Myocard ial Perfusion Imaging Adjunct Given 06/15/2024 9:45 AM CDT 0.4 mg tc-99m sestamibi unit dose injection 10.1 millicurie 10.1 millicurie, intravenous, Once in imaging, radiopharmaceutical, Starting on [facility] 06/15/24 at 0820, For 1 dose, Indications: Diagnostic RadiographyIndications:Letty gnostic Radiography Given 06/15/2024 8:20 AM CDT 10.1 millicuries tc-99m sestamibi unit dose injection 32.7 millicurie 32.7 millicurie, intravenous, Once in imaging, radiopharmaceutical, Starting on Indira 06/15/24 at 0945, For 1 dose, Indications: Diagnostic RadiographyIndications:Letty gnostic Radiography Given 06/15/2024 9:46 AM CDT 32.7 millicuries documented in this encounter Care Teams Visual Lead Relationship Specialty Start Date End Date Isreal Lin MD PCP - General Family Practice 08/30/23 documented as of this encounter
--- OUTSIDE RECORDS SUMMARY | 2024-09-25 22:00 | XMS_ITS | Encounter Summary ---
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 Gender Identity Female 01/28/2024 11:49 PM CDT Sexual Orientation Straight 08/12/2022 12 :04 PM CDT documented as of this encounter Plan of Treatment Not on file documented as of this encounter Procedures Procedure Name Priority Date/Time Associated Diagnosis Comments DIFFERENTIAL AUTO Routine 01/05/2024 2:4 5 PM CDT Chronic sinusitis, unspecified location CBC WITH AUTO DIFFERENTIAL Routine 01/05/2024 2:45 PM CDT Chronic sinusitis, unspecified location documented in this encounter Results * Differential, auto (01/05/2024 2:45 PM CDT) Neutrophil abs 2.2 1.5 - 6.5 K/cumm Imm gran abs 0.0 0.0 - 0.1 K/cumm [facility] Lymphocyte abs 0.9 0.8 - 3.3 K/cumm [facility] Monocyte abs 0.3 0.2 - 0.8 K/cumm [facility] Eosinophil abs 0.1 0.0 - 0.5 K/cumm [facility] Basophil abs 0.0 0.0 - 0.1 K/cumm [facility] Neutrophil pct 62.6 % [facility] Comment: Interpretive Data Percent cell count reference ranges are not reported, since discordance with absolute values may lead to misinterpretation of CBC data. Current Interpretive Data was last revised on 2018. Imm gran pct 0.3 % [facility] Comment: Interpretive Data Percent cell count reference ranges are not reported, since discordance with absolute values may lead to misinterpretation of CBC data. Current Interpretive Data was last revised on 2018. Lymphocyte pct 24.2 % [facility] Comment: Interpretive Data Percent cell count reference ranges are not reported, since discordance with absolute values may lead to misinterpretation of CBC data. Current Interpretive Data was last revised on 2018. Monocyte pct 9.0 % [facility] Comment: Interpretive Data Percent cell count reference ranges are not reported, since discordance with absolute values may lead to misinterpretation of CBC data. Current Interpretive Data was last revised on 2018. Eosinophil pct 2.8 % [facility] Comment: Interpretive Data Percent cell count reference ranges are not reported, since discordance with absolute values may lead to misinterpretation of CBC data. Current Interpretive Data was last revised on 2018. Basophil pct 1.1 % [facility] Comment: Interpretive Data Percent cell count reference ranges are not reported, since discordance with absolute values may lead to misinterpretation of CBC data. Current Interpretive Data was last revised on 2018. Blood 01/05/2024 2:45 PM CDT 01/05/2024 3:13 PM CDT Samir Khan MD LAB BLOOD ORDERABLES Fin al Result Performing Organization Address [facility] de Phone Number PAOLO EUCEDA [address] [place] [address] * (ABNORMAL) CBC with auto differential (01/05/2024 2:45 PM CDT) WBC 3.6(L) 3.8 - 9.9 K/cumm Hgb 10.7(L) 11.9 - 15.5 g/dL [facility] Hct 32.3(L) 35.6 - 45.5 % [facility] Plt 112(L) 150 - 400 K/cumm [facility] MPV 9.7 9.1 - 12.3 fL [facility] RBC 3.39(L) 3.90 - 5.20 M/cumm [facility] MCV 95.3 81.3 - 96.4 fL [facility] 31.6 27.1 - 33.3 pg [facility] MCHC 33.1 32.3 - 35.7 g/dL [facility] RDW CV 13.4 11.1 - 14.9 % [facility] RDW SD 46.5 35.7 - 48.1 fL [facility] NRBC abs 0.00 0.00 - 0.01 K/cumm [facility] Blood 01/05/2024 2:45 PM CDT 01/05/2024 3:13 PM CDT Samir Khan MD LAB BLOOD ORDERABLES Fin al Result Performing Organization Address [facility] Co de Phone Number PAOLO SONG [address] [place] [address] documented in this encounter Visit Diagnoses Diagnosis Chronic sinusitis, unspecified location documented in this encounter Care Teams Science Job Titles Relationship Specialty Start Date End Date Isreal Lin MD PCP - General Family Practice 08/30/23 documented as of this encounter
--- OUTSIDE RECORDS SUMMARY | 2024-09-25 22:00 | XMS_ITS | Encounter Summary ---
Author Organization [facility] Healthcare Address [address] [place] [address] Care Team Providers Care Jewelsmith Name Role Phone Isreal Lin MD Primary Care Provider [phone] Reason for Visit * Auth/Cert (Routine) Specialty Diagnoses / Procedures Referred By Contac t Referred To Contact Diagnoses Chronic pansinusitis Chronic pansinusitis [J32.4] Procedures AR NSL/SINUS NDSC MAX ANTROST W/RMVL TISS MAX SINUS AR NASAL/SINUS NDSC W/RMVL TISS FROM FRONTAL SINUS AR NASAL/SINUS NDSC TOT W/SPHENDT W/SPHEN TISS RMVL ENDOSCOPIC SINUS SURGERY WITH NAVIGATION Samir Khan MD [address] [place] [address] Phone: tel: fax: Referral ID Status Reason Start Date Expiration Date Visits Re quested Visits Authorized [id number] 10/18/2023 1 1 Encounter Details Date Type Department Care Team (Latest Contact Info) Description 12/17/2023 7:42 AM RN CLINICAL DOCUMENTATION - 12/17/2023 3:40 PM RN CLINICAL DOCUMENTATION Hospital Encounter [facility] Operating Room [address] [address] [id number] Samir Khan MD [address] [place] [address] Chronic pansinusitis Discharge Disposition: Discharge to home or self care Social History Tobacco Use Types Packs/Day Years [...] on file Legal Sex Female 3:37 AM RN CLINICAL DOCUMENTATION Gender Identity Female 01/28/2024 11:49 PM CDT Sexual Orientation Straight 08/12/2022 12 :04 PM CDT documented as of this encounter Last Filed Vital Signs Vital Sign Reading Time Taken Comments Blood Pressure 168/75 12/17/2023 2:35 PM RN CLINICAL DOCUMENTATION Pulse 67 12/17/2023 3:10 PM RN CLINICAL DOCUMENTATION Temperature 36 ??C (96.8 ??F) 12/17/2023 1:10 PM RN CLINICAL DOCUMENTATION Respiratory Rate 22 12/17/2023 3:00 PM RN CLINICAL DOCUMENTATION Oxygen Saturation 96% 12/17/2023 3:10 PM RN CLINICAL DOCUMENTATION Inhaled Oxygen Concentration - - Weight 68.5 kg (151 lb) 12/17/2023 7:54 AM RN CLINICAL DOCUMENTATION Height 160 cm (5' 3 ) 12/17/2023 7:54 AM RN CLINICAL DOCUMENTATION Body Mass Index 26.75 12/17/2023 7:54 AM RN CLINICAL DOCUMENTATION documented in this encounter Discharge Instructions * Discharge Instructions* Dana Marinelli RN - 12/17/2023 7:28 AM RN CLINICAL DOCUMENTATION Discharge Instructions -Endoscopic Sinus Surgery Please Read and Follow These Instructions for the Best Outcomes Following Your Surgery! WHAT TO EXPECT FOLLOWING SURGERY: ? Bleeding - A drip from the nose and into the back of the throat is normal for the first two days following surgery. For flowing blood (like a faucet), contact the ENT Doctor store product demonstrator as noted below. ? Nasal congestion, fullness, facial pain, headache, and disrupted sleep are normal for the first week and are an expected part of the healing process. This will improve after the first debridement is performed in clinic about one week following surgery. NASAL IRRIGATIONS: ? Good post-operative irrigation on your part is essential to a successful outcome! ? Instructions: Use the Irrigation bottle/method mixed with a sterile saline solution at least three times per day (1 bottle per nostril). Use distilled, bottled or boiled water tap to make up the saline solution according to the instructions. Use 1 packet with distilled water/boiled water from the tap to make the mixture. ACTIVITY: ? Minimize your activities with only light activity for the first week following surgery. Listen toyour body! If you feel tired over the first few days, you should rest. ? No nose blowing, stooping, straining or heavy lifting > 2 bags of groceries. ? Sneeze with your mouth open. ? Sleeping with your head elevated will reduce bleeding from the nose. ? If you have been prescribed a CPAP machine, do not use until your doctor says it is safe; sleep in a recliner chair with your head elevated in the meantime. MEDICATIONS: ? Resume your home medications (EXCEPT BLOOD THINNING MEDICATIONS - WE WILL LET YOU KNOW WHEN TO RESTART THEM) ? Do not take any intranasal medicines until told to by your surgeon ? Pain: o Mild to moderate pain: Over the counter Tylenol (Acetaminophen) or Ibuprofen as per the instructions on the bottle o Severe pain: Take your pain medicine prescription as directed:NEVER DRIVE A VEHICLE OR OPERATE HEAVY MACHINERY WHEN TAKING PRESCRIPTION PAIN MEDICINE! DRIVING: ? Do not drive within 24 hours of receiving anesthesia ? Do not drive while taking prescription pain medication DIET: ? Resume a healthy, balanced, normal diet as you feel up to it. FOLLOW-UP: You will have important follow-up appointments starting about one week following surgery o o If you do not have an appointment, please call the numbers below to schedule a visit. APPOINTMENTS: ? ENT Office Appointments ([facility] and [facility]) Call our office or go to the Emergency Room immediately if you have any of the following: o Any vision problems/changes/eye swelling o Fever over 101.4 o Neck stiffness o Heavy or prolonged bright red bleeding from the nose ? Regular hours: to speak with my clinical coordinator, Sheron Uribe. ? After hours: and ask for the Ear, Nose and Throat (ENT) resident store product demonstrator. You have received anesthesia, therefore, for the next 24 hours and/or while taking narcotic pain medication; -Do NOT drive a vehicle -Do NOT drink alcohol -Do NOT make important personal or business decisions or sign legal documents. Examples of narcotic pain medication include Percocet, Oxycontin, Dows, Hydrocodone, and Oxycodone. FAQs (frequently asked questions) about Surgical Site Infections What is a Surgical Site Infection (SSI)? A surgical site infection is and infection that occurs after surgery in the part of the body where the surgery took place. Most patients who have surgery do not develop an infection. However, infections develop in about 1 to 3 out of every 100 patients who have surgery. Some of the common symptoms fo a surgical site infection are: Redness and pain around the area where you had surgery Drainage of cloudy fluid from your surgical wound Fever Can SSIs be treated? Yes. Most surgical site infections can be treated with antibiotics. The antibiotic given to you depends on the bacteria (germs) causing the infection. Sometimes patients with SSIs causing the infection. Sometimes patients with SSIs also need another surgery to treat the infection. What are some of the things that hospitals are doing to prevent SSIs? To prevent SSIs, doctors, nurses, and other healthcare providers: Clean their hands and arms up to their elbows with an antiseptic agent just before the surgery. Clean their hands with soap and water or an alcohol-based hand rub before and after caring for eachpatient. May remove some of your hair immediately before your surgery using electric clippers if the hair isin the same area where the procedure will occur. They should not shave you with a razor. Wear special hair covers, masks, gowns, and gloves during surgery to keep the surgery area clean. Give you antibiotics before your surgery starts. In most cases, you should get antibiotics within 60 minutes before the surgery starts and the antibiotics should be stopped within 24 hours after surgery. Clean the skin at the site of your surgery with a special soap that kills germs. What can I do to help prevent SSIs? Before your surgery: Tell your doctor about other medical problems you may have. Health problems such as allergies, diabetes, and obesity could affect your surgery and your treatment. Quit smoking. Patients who smoke get more infections. Talk to your doctor about how you can quit before your surgery. Do not shave near where you will have surgery. Shaving with a razor can irritate your skin and makeit easier to develop an infection. At the time of your surgery: Speak up if someone tries to shave you with a razor before surgery. Ask why you need to be shaved and talk with your surgeon if you have any concerns. Ask if you will get antibiotics before surgery. After your surgery: Make sure that your healthcare providers clean their hands before examining you, either with soap and water or an alcohol-based hand rub. If you do not see you providers clean their hands, please ask them to do so. Family and friends who visit you should not touch the surgical wound or dressings. Family and friends should clean their hands with soap and water or an alcohol- based hand rub beforeand after visiting You. If you do not see them clean their hands, ask them to clean their hands. What do I need to do when I go home from the hospital? Before you go home, your doctor or nurse should explain everything you need to know about taking care of your wound. Make sure you understand how to care for your wound before you leave the hospital. Always clean your hands before and after caring for your wound. Before you go home, make sure you know who to contact if you have questions or problems after you get home. If you have any symptoms of an infection, such as a redness and pain at the surgery site, drainage,or fever, call your doctor immediately. If you have additional questions, please ask your doctor or nurse. Safety Tips for Preventing Falls at Home Falls happen at home for many reasons. Here are several things that are known to add to your risk of falling: Poor vision or hearing History of falls Use of an assistive device, such as a cane or walker Poor nutrition Certain medications Multiple medications Being older than 65 years of age Conditions in the home, such as slippery floors, loose rugs, cords on the floor If you answer ???yes?? to any of the following questions, please consider discussing your risk of falling with your primary care practitioner: Have you fallen in the last year? Do you feel unsteady when standing or walking? Do you have a fear of falling? If your primary care practitioner recommends physical therapy, we are available to assist: [facility] STAR: [facility] [place] [phone] [place] [phone] [facility] [phone] How are some things that you can do that will lower your risk for falls at home: Arrange furniture to prevent tripping or bumping into it. Keep a light on in the bedroom & bathroom to help you see at night. Have your doctor or pharmacist review your medications. Remove things that you can trip over like phone cords, rugs & footstools. Wear sturdy non-skid slippers or shoes with flat or low heels Use handrails when going up & down stairs. Take one step at a time. Begin a regular exercise program When getting up, sit on the edge of the bed/chair for a few minutes before standing. Sit & stand up slowly. Avoid tilting your head back. Watch out for sidewalks & curbs that are not even. Replace worn walker, cane & crutch tips. Disclaimer: This material provides general information only. It should not be used in place of the advice, instructions, or treatment given by your doctor or other health career development specialist. CLINICAL DOCUMENTATION CLINICAL DOCUMENTATION * Attachments The following attachments cannot be sent through Care Everywhere. * Oxycodone, Rapid Release (By mouth) (Latvian) documented in this encounter Medications at Time of Discharge artificial tears,hypromello se, 0.3 % dropsIndications :Dry Eye Administer 1 drop into both eyes daily as needed ascorbic acid (ascorbic acid with darlene hips) 500 mg tablet take 1 by Oral route once 0 0 02/19/2015 ascorbic acid/collagen hydr (COLLAGEN SKIN RENEWAL ORAL)Indications :supplement Take 1 tablet by mouth every morning Not started aspirin 81 mg enteric coated tabletIndication s:prevention of thrombosis Take 1 tablet (81 mg total) by mouth every morning calcium carbonate (CALCIUM 600) 1,500 mg (600 mg of elemental calcium) tablet take 1 by Oral route every day 0 0 05/13/2015 cycloSPORINE (RESTASIS) 0.05 % ophthalmic emulsionIndicati ons:dry eye Administer 1 drop into both eyes 2 (two) times a day ferrous sulfate 325 mg (65 mg of elemental iron) tabletIndication s:Iron Deficiency Anemia Take 1 tablet (65 mg of elemental iron total) by mouth every other day In AM 07/26/2023 levothyroxine (SYNTHROID) 100 mcg tabletIndication s:hypothyroidism Take 1 tablet (100 mcg total) by mouth compensation coordinator before breakfast 07/31/2021 losartan (COZAAR) 25 mg tabletIndication s:hypertension Take 1 tablet (25 mg total) by mouth nightly losartan (COZAAR) 50 mg tablet take 1 tablet by oral route every day 0 0 02/19/2015 metFORMIN (GLUCOPHAGE) 500 mg tablet take 1 tablet by oral route 2 times every day with morning and evening meals 0 0 02/19/2015 multivitamin tablet tablet take 1 tablet by oral route every day with food 0 0 05/13/2015 nadoloL (CORGARD) 40 mg tabletIndication s:hypertension Take 1 tablet (40 mg total) by mouth every morning 08/17/2020 omeprazole (PriLOSEC) 20 mg capsuleIndicatio ns:gerd Take 1 capsule (20 mg total) by mouth every morning sod rvefa-djbgxj-fut eez bottle 2,300-700 mg kit Administer 2 sprays into each nostril 2 (two) times a day 1 kit 12/18/2023 budesonide (PULMICORT) 0.5 mg/2 mL nebulizer solution Mix 1 capsule/ampule in 250 mL of saline irrigations (NeilMed Sinus Rinse Bottle) and irrigate each nostril with half of the bottle twice daily. 120 mL 6 08/16/2023 4 oxyCODONE (ROXICODONE) 5 mg immediate release tabletIndication s:Pain Take 1 tablet (5 mg total) by mouth every 4 (four) hours as needed for pain 10 tablet 12/17/2023 4 documented as of this encounter Ordered Prescriptions Prescription Sig Dispense Quantity Refills Last Filled Start Date End Date sod zabey-ggsivy-glxsx z bottle 2,300-700 mg kit Administer 2 sprays into each nostril 2 (two) times a day 1 kit 12/18/2023 oxyCODONE (ROXICODONE) 5 mg immediate release tabletIndications: Pain Take 1 tablet (5 mg total) by mouth every 4 (four) hours as needed for pain 10 tablet 12/17/2023 documented in this encounter Discharge Disposition Disposition Code Departure Means Destination Comment s Discharge to home or self care documented in this encounter H&P Notes * Samir Khan MD - 12/17/2023 10:17 AM CST I have reviewed the H&P, examined the patient, and endorse the findings as written. Plan of Care : Based on the above findings, I consider Maggie Erazo to be an acceptable risk for: Procedure(s): ENDOSCOPIC SINUS SURGERY WITH NAVIGATION CLINICAL DOCUMENTATION Source Note - Jazmyn Massey MD - 12/10/2023 10:46 AM RN CLINICAL DOCUMENTATION Images from the original note were not included. [facility] for Preoperative Assessment and Planning Preoperative Evaluation Record Evaluation type/location: TPAP from [facility] Planned procedure site: [facility] OR Date: 12/10/23 NOTE: This note represents a preoperative evaluation initiated via telephone interview. NO PHYSICALEXAM was performed at the time of initial assessment. A physical exam may be added to this note anddocumented below. Anesthesia Evaluation Maggie Erazo is a 83 y.o. female ENDOSCOPIC SINUS SURGERY WITH NAVIGATION (Bilateral: Face) Pre-Op Diagnosis Codes: * Chronic pansinusitis [J32.4] HISTORY HPI Maggie Erazo is a 83 y.o. female who is being evaluated prior to undergoing an Bilateral ENDOSCOPIC MAXILLARY ANTROSTOMY, Bilateral ENDOSCOPIC TOTAL ETHMOIDECTOMY, Bilateral ENDOSCOPIC SPHENOIDOTOMY, Bilateral ENDOSCOPIC FRONTAL SINUS RECESS EXPLORATION, for Chronic pansinusitis. PMHx of CVA, diabetes mellitus, hypertension, dyslipidemia, fatty liver disease/cirrhosis. Past Medical History Information obtained from: patient and chart. Neurological + CVA/Stroke ( old left frontal infarct ) Pertinent negatives: seizures and neuromuscular disease Comments: Last July she was evaluated for TIA symptoms and MRI showed an old left frontal lobe infarct. A 7 day Holter monitor showed no atrial arrhythmias. Echocardiogram was relatively unremarkable aside from mild aortic stenosis. Per cards Cardiovascular + Hypertension (pt states she has high BP at dentist office and prior to surgery due to being nervous) Typical systolic BP - 140 Typical diastolic BP - 70 + Systolic or diastolic dysfunction w/o CHF (per echo 10/2023) Diastolic dysfunction w/o CHF. Diastolic function: stage I - impaired relaxation LVEF: 60-70%. + Current valvular disease (per echo 10/2023) - - mild; MR - mild; TR - mild. + Other arrhythmia (1st degree AV block) + DVT/PE (questionable? pt denies; states she has a hx of varicose veins) Last VTE date: 2013. Pertinent negatives: IA ; CABG ; valve replacement; atrial fibrillation; pacemaker/ICD; PVD; negative for CHF; drug-eluting stent(s); bare metal stent(s) and unknown stent(s) type Comments: Follows with cards LOVN 10/2023 Respiratory + Pulmonary hypertension (RVSP 35-40) RV function: normal. 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 Cirrhosis etiology: COSTA. + History of anemia + History of thrombocytopenia (10/25 plt 80) Pertinent negatives: history of Yao positive Gastrointestinal + GERD - on daily therapy. Asymptomatic. Renal / Pertinent negatives: renal disease and dialysis Musculoskeletal/Pain + Chronic pain (hip and knee) Endocrine / Other + Diabetes mellitus - Diabetes type 2. Outpatient insulin use: none. Pt reported low glucose range is 119. Pt reported high glucose range is 150. Pt reported HgA1c: 6.2. Pt reported HgA1c date: ~6 months ago per patient. + Thyroid disease - hypothyroidism Pertinent negatives: obesity (BMI >30); cancer history; rheumatological disease; transplanted organ and infectious disease Functional Capacity Functional capacity: <4 METs Functional capacity limited by a non-cardiovascular, non-pulmonary condition. Comments: Patient states she can walk 3 blocks at a slow-moderate pace without SOB or CP. States she does 12 steps at home daily. Reports limited mobility due to hip and knee pain. Review of Systems + palpitations (chronic and rare, has not happened in a long time) + easy bruising (denies spontaneous bleeding) + chronic pain (hip and knee) + vision loss (glasses) Pertinent negatives: productive cough; wheezing; SOB; recent cold/flu; fever; chest pain; orthopnea; pedal edema; PND; previous transfusion; bleeding problems; syncope; hard of hearing; dentures/partials and chipped/loose teeth Comments: Pt reports incontinence of urine and bowel at baseline, wears depends PAT Summary and Plans Cardiac risk classification of planned procedure: low cardiac risk. Preoperative assessment status: complete. Initial preoperative evaluation discussed with: Kym Echevarria MD Additional comments: Maggie Erazo is a 83 y.o. female who is being evaluated prior to undergoinga low cardiac risk surgery. Revised Cardiac Risk Index factors are (history of cerebrovascular disease) for a total RCRI of 1 out of 6. Functional capacity is <4 METs (specifically:limited due to hip and knee pain, denies SOB or CP). Obstructive sleep apnea (MYNOR) screening status is STOP-BANG incomplete but suspected to be 0-2 suggesting low risk for MYNOR. Neck circumference pending.. This assessment was performed via telephone. Therefore the physical exam has been deferred to the day of surgery team. The patient was provided with preoperative instructions for their medications. Patient instructions were provided by telephone and electronically sent via [employer]. Patient verbalized understanding of instructions. Blood bank needs for day of procedure: No type and screen needed Pending labs/tests include: POC Glucose - to be reviewed by DOS team 10/25/23 CBC reviewed and significant for platelet 80, pt has hx of cirrhosis 10/25/23 CMP reviewed and significant for bili 2.1 10/25/23 INR 1.2 >Patient states she has high BP prior to going to the dentist and before surgery. BPs typically 140s/70s. Pt is on losartan and a nadolol. Discussed with CPAP attending. Advised to continue nadolol and hold losartan day of surgery and the night before for general anesthesia. >In regards to patients upcoming procedure cardiology states From a cardiovascular perspective,she appears a reasonable candidate for sinus surgery and no further cardiac testing is indicated preoperatively. She would be considered a low risk for cardiovascular complications. Because of her history of CVA, continuation of aspirin perioperatively would be ideal, but if surgeon feels that her bleeding risk is prohibitive, aspirin could be held 7 days prior to the surgery >The patient is on aspirin therapy and has a history of CVA . For the proposed procedure, the risk of increased bleeding likely outweighs the benefits of preoperative antiplatelet therapy. If the surgeon agrees with risk assessment, we would support stopping aspirin up to 7-10 days prior to the procedure and resuming therapy when feasible in the postoperative period. Per Urology & ENT protocol, patient provided directly with instructions. Please call the CPAP chart room clinician ([phone]) with any questions. TPAP assessment complete Preoperative evaluation performed by Krupa Sullivan NP on 12/10/23 at 10:47 AM . 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 Dizziness 09/23/2020 Drug-induced gastric ulcer 09/11/2019 Acquired hypothyroidism 08/20/2017 Hepatic cirrhosis (HCC) 06/22/2016 Coronary arteriosclerosis in [place] artery 06/22/2016 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) (HCC) 06/22/2016 Coronary artery calcification seen on CT scan 06/22/2016 Benign hypertension 02/19/2015 Hypertension associated with diabetes (HCC) 02/19/2015 Other chest pain 02/19/2015 Palpitations 02/19/2015 Steatosis of liver 02/19/2015 Diabetes mellitus (HCC) 02/19/2015 Past Medical History: Diagnosis Date Allergic rhinitis Anemia 2021 Cirrhosis (HCC) 2014 Deep vein thrombosis (CMS/HCC) (HCC) 2013 Dental disease 1999 Diabetes mellitus (HCC) 2002 Dizziness 2002 Headache 2002 Hypertension Liver disease 2012 Nosebleed 2009 Sinusitis 2002 Tinnitus 2002 Past Surgical History: Procedure Laterality Date APPENDECTOMY 1961 BRONCHOSCOPY 2021 CHOLECYSTECTOMY 08/06/1962 COLONOSCOPY 2021 CYST REMOVAL Right off finger on right hand; unknown date MENISCUS SURGERY Left 2021 SINUS SURGERY 09/28/2021 VARICOSE VEIN SURGERY Bilateral unknown surgery; multiple OB History No obstetric history on file. Allergies Allergen Reactions Adhesive Tape-Silicones Hives Ezetimibe Muscle pain Simvastatin Muscle pain Codeine Other (See comments) Acute abd. pain Acute abd. pain, Loratadine-Pseudoephedrine Other (See comments) Zzvxizv-Nds-Jwx Reductase Inhibitors Other (See comments) Med List Status: Nurse Complete Set By: Yessi Holman RN at 12/01/2023 9:14 AM Taking? Last Dose Start Date End Date Provider artificial tears,hypromellose, 0.3 % drops Past Month -- -- Lia Corrales MD ascorbic acid (ascorbic acid with darlene hips) 500 mg tablet 11/30/2023 02/19/15 -- David Rascon MD take 1 by Oral route once Patient taking differently: Take 1 tablet/chew tab (500 mg total) by mouth daily with lunch ascorbic acid/collagen hydr (COLLAGEN SKIN RENEWAL ORAL) -- -- -- Lia Corrales MD aspirin 81 mg enteric coated tablet 12/01/2023 -- -- Lia Corrales MD budesonide (PULMICORT) 0.5 mg/2 mL nebulizer solution 12/01/2023 08/16/23 -- Samir Khan MD Mix 1 capsule/ampule in 250 mL of saline irrigations (NeilMed Sinus Rinse Bottle) and irrigate eachnostril with half of the bottle twice daily. Patient taking differently: 2 mL (0.5 mg total) 2 (two) times a day Mix 1 capsule/ampule in 250 mL of saline irrigations (NeilMed Sinus Rinse Bottle) and irrigate each nostril with half of the bottletwice daily. calcium carbonate (CALCIUM 600) 1,500 mg (600 mg of elemental calcium) tablet 11/30/2023 05/13/15 --David Rascon MD take 1 by Oral route every day Patient taking differently: Take 1 tablet (1,500 mg total) by mouth daily after lunch cycloSPORINE (RESTASIS) 0.05 % ophthalmic emulsion 12/01/2023 -- -- Lia Corrales MD ferrous sulfate 325 mg (65 mg of elemental iron) tablet 11/30/2023 07/26/23 -- Lia Corrales MD levothyroxine (SYNTHROID) 100 mcg tablet 12/01/2023 07/31/21 -- Lia Corrales MD losartan (COZAAR) 25 mg tablet 11/30/2023 -- -- Lia Corrales MD losartan (COZAAR) 50 mg tablet 12/01/2023 02/19/15 -- David Rascon MD take 1 tablet by oral route every day Patient taking differently: Take 1 tablet (50 mg total) by mouth every morning metFORMIN (GLUCOPHAGE) 500 mg tablet 12/01/2023 02/19/15 -- David Rascon MD take 1 tablet by oral route 2 times every day with morning and evening meals Patient taking differently: Take 1 tablet (500 mg total) by mouth 2 (two) times a day with meals multivitamin tablet tablet 12/01/2023 05/13/15 -- David Rascon MD take 1 tablet by oral route every day with food Patient taking differently: Take 1 tablet by mouth every morning nadoloL (CORGARD) 40 mg tablet 12/01/2023 08/17/20 -- ProviderLia MD omeprazole (PriLOSEC) 20 mg capsule 12/01/2023 -- -- ProviderLia MD No current facility-administered medications for this encounter. Current Outpatient Medications: artificial tears,hypromellose, 0.3 % drops ascorbic acid (ascorbic acid with darlene hips) 500 mg tablet ascorbic acid/collagen hydr (COLLAGEN SKIN RENEWAL ORAL) aspirin 81 mg enteric coated tablet budesonide (PULMICORT) 0.5 mg/2 mL nebulizer solution calcium carbonate (CALCIUM 600) 1,500 mg (600 mg of elemental calcium) tablet cycloSPORINE (RESTASIS) 0.05 % ophthalmic emulsion ferrous sulfate 325 mg (65 mg of elemental iron) tablet levothyroxine (SYNTHROID) 100 mcg tablet losartan (COZAAR) 25 mg tablet losartan (COZAAR) 50 mg tablet metFORMIN (GLUCOPHAGE) 500 mg tablet multivitamin tablet tablet nadoloL (CORGARD) 40 mg tablet omeprazole (PriLOSEC) 20 mg capsule Social History Tobacco Use Smoking Status Never Smokeless Tobacco Never Alcohol Use: Unknown (12/01/2023) AUDIT-C Frequency of Alcohol Consumption: Not on file Average Number of Drinks: Patient does not drink Frequency of Binge Drinking: Not on file Substance and Sexual Activity Drug Use Never Family History Problem Relation Age of Onset Alzheimer's disease Father Alzheimer's disease; Kidney failure Father 91 Kidney failure; Cause of : Kidney failure Stroke Mother Stroke; Hypertension Mother Hypertension; There were no vitals filed for this visit. Relevant diagnostics: ECG(s): 02/09/22: Echocardiogram(s): 1/16/24: TTE CONCLUSIONS: Normal left ventricular systolic function. No focal [...] mmHg. Mild tricuspid regurgitation. Normal sinus rhythm. Stress test(s): N/A Cardiac catheterization(s): N/A PFT(s): N/A Vascular studies: N/A Other: 10/18/23: CT sinus IMPRESSION: 1. Redemonstrated postoperative change consistent with left uncinectomy. There is persistent moderate mucosal thickening throughout the left maxillary sinus, within the left ethmoid air cells, and mild mucosal thickening within the left frontal sinus. Diffuse hyperostosis of the sinus hernandez is in keeping with chronic sinusitis. 2. Interval increase in mucosal thickening throughout the right ethmoid air cells, now severe. PT: No results found for requested labs within last 30 days. INR: No results found for requested labs within last 30 days. APTT: No results found for requested labs within last 30 days. Hgb A1C: No results found for requested labs within last 30 days. CBC RBC: No results found for requested labs within last 30 days. RDW: No results found for requested labs within last 30 days. MCHC: No results found for requested labs within last 30 days. MCH: No results found for requested labs within last 30 days. MCV: No results found for requested labs within last 30 days. Hct: No results found for requested labs within last 30 days. Hgb: No results found for requested labs within last 30 days. WBC: No results found for requested labs within last 30 days. MPV: No results found for requested labs within last 30 days. Platelets: No results found for requested labs within last 30 days. RDW CV: No results found for requested labs within last 30 days. RDW Sd: No results found for requested labs within last 30 days. BMP Glucose: No results found for requested labs within last 30 days. Calcium: No results found for requested labs within last 30 days. Sodium: No results found for requested labs within last 30 days. Potassium: No results found for requested labs within last 30 days. CO2: No results found for requested labs within last 30 days. Chloride: No results found for requested labs within last 30 days. BUN: No results found for requested labs within last 30 days. Creatinine: No results found for requested labs within last 30 days. Alexandra index score: 100 DOS Physical Exam Medical history, medications, and allergies reviewed. Attestation: This PAT evaluation Airway Exam: Mallampati: II Cervical ROM: FROM Cardiovascular Exam: Rate: regular Rhythm: regular Pulmonary Exam: LCTA, bilat Anesthesia Plan ASA 3 My patient is approved for the Anesthesia Controlled Medication protocol when under care of a MICROSCOPIST Planned anesthesia: General Team communication plan: oral ET tube Informed Consent: Anesthesia plan and risks discussed with patient. Plan and Consent Comments: Cirrhosis, plts 80 Consent and Attending signature: I and/or my designee have discussed the anesthesia plan, benefits, possible alternatives, parental presence at time of induction (if indicated), and clinically relevant risks that may include dental injury, unintentional awareness, and/or other complications. The patient and/or parent/legal guardian understand, and agree to proceed. All questions answered. CLINICAL DOCUMENTATION CLINICAL DOCUMENTATION CLINICAL DOCUMENTATION documented in this encounter Miscellaneous Notes * Perioperative Nursing Note - Dana Marinelli RN - 12/17/2023 3:14 PM CST Pt cleared for discharge by Dr. Massey. Went over discharge instructions with patient and . CLINICAL DOCUMENTATION * Op Note - Samir Khan MD - 12/17/2023 11:38 AM CST Otolaryngology Operative Report Date of Service: 12/17/2023 Attending Physician: Samir Khan MD Resident Surgeon: Konrad Damon MD Preoperative Diagnosis: Pre-op Diagnosis * Chronic pansinusitis [J32.4] Postoperative Diagnosis: Same. Procedure(s) Performed: 1. Bilateral nasal endoscopy with frontal sinus recess exploration. 2. Bilateral nasal endoscopy with total ethmoidectomy and sphenoidotomy with tissue removal. 3. Bilateral nasal endoscopy with maxillary antrostomy with removal of tissue. 4. Stereotactic Computer assisted naviagtion, extradural. Anesthesia: General with endotracheal tube intubation. Estimated Blood Loss: 25 mL Complications: None. Specimens: Right and Left sinus contents. Indications for Surgery: Maggie Erazo is a 83 y.o. female with a long- standing history of chronic rhinosinusitis. The patient has tried multiple medical regimens including nasal steroids, oral steroids, saline rinses, antibiotics without improvement. The patient comes to the operating room for de finitive treatment. Risks and benefits of the procedure including bleeding, infection, return to the operating room, intraorbital bleeding, infection, double vision, blindness, intracranial bleeding,infection, meningitis, CSF leak, anosmia, failure to improve, need for further surgery and septal perforation among others were all explained to the patient preoperatively. Consent was signed and placed in the chart. Procedure: The patient was identified in the pre-operative holding area. The consent for surgery was reaffirmed and all questions were answered. The patient agreed to proceed with surgery. The patient was taken to the operating room and was placed in the supine position on the operating table. A pre-induction timeout was performed confirming the patient's name, medical record number, date of , the planned operative procedure, and patient's medication allergies. The patient then u nderwent induction of general anesthesia and intubation by the Anesthesia staff. The table was thenrotated 180 degrees. Antibiotics were given and SCD boots were placed. The [facility] stereotactic CT image guidance system was then brought to the field. The CT data were loaded, reviewed, and an operative plan was finalized. The patient underwent surface match registration that was confirmed accurate in 3 separate planes. The patient was prepped and draped in the standard fashion for endoscopic sinus surgery. The bilateral nasal cavities were prepared with Afrin pledgets. The pre-surgical checklist was then conducted. This included verifying all pertinent sinonasal anatomy, including skull base location, ethmoid artery location, and cell configuration. It was also confirmed with the perioperative staff that all hemostatic agents including suction bovie, bipolar elect rocautery, and hemostatic agents were immediately available or on the surgical field. Next, the 0-degree endoscope was used to visualize the left nasal cavity. Using the straight through-bite, we took down the inferior half of the middle turbinate inclusive of the madai bullosa with a straight through bite and cauterized the stump posteriorly. There was noted to be inflammatory changes within the previously opened maxillary sinus. These were removed withan angled microdebrider. An angled endoscope with the curved navigation suction was used to confirmthe connection to the natural maxillary sinus os, which was widened circumferentially and edematoustissue was removed from the maxillary sinus. The sinus then was copiously irrigated. Then left nasal endoscopy with total ethmoidectomy was performed. The ethmoid bulla was removed with a J-curette. Anterior ethmoid cells were taken down with the 45 degree thru-bite and the microdebrider. We came through the basal lamella with the microdebrider to expose the posterior ethmoids. Again using the 45 degree thru-bite we opened the partitions of ethmoid cells. We identified the orbital apex cell and the skull base and orbit posteriorly and laterally and confirmed with our straight navigation suction. We then moved inferomedially to identify the superior turbinate and took down theinferior third of it. We then identified the natural sphenoid os, dilated it downward with the carlee elevator and widely opened our sphenoidotomy with a kerrison punch and 45 degree thru- bite. Polypoid changes and mucosa were noted and removed from the sphenoid os. The skull base was identified within the sphenoid sinus. The sinus then was copiously irrigated. Moving from a posterior to anterior direction, we continued opening the ethmoid cells until we reached the frontal recess. The skull base was protected at all times.. The agger nasi cell was taken down with the frontal kerrison. Angled instrumentation and an angled microdebrider was then used to open the natural frontal sinus outflow tract circumferentially. The frontal sinus was noted to be widely patent. The sinus then was copiously irrigated. Next, the 0-degree endoscope was used to visualize the right nasal cavity. Using the straight through-bite, we took down the inferior half of the middle turbinate inclusive of the madai bullosa with a straight through bite and cauterized the stump posteriorly. The microdebrider was used to remove the inflammation from the region of the middle meatus. The inferior aspect of the uncinate process was removed with the the pediatric backbiter and then the vertical portion was taken down with a 45 degree thru-bite. The maxillary sinus natural ostium was then entered with amaxillary sinus ostium seeker. There was noted to be inflammatory changes within the maxillary sinus. These were removed with an angled microdebrider. An angled endoscope with the curved navigation soto ction was used to confirm the connection to the natural maxillary sinus os, which was widened circumferentially and edematous tissue was removed from the maxillary sinus. The sinus then was copiouslyirrigated. Then right nasal endoscopy with total ethmoidectomy was performed. The ethmoid bulla was removed with a J-curette. Anterior ethmoid cells were taken down with the 45 degree thru-bite and the microdebrider. We came through the basal lamella with the microdebrider to expose the posterior ethmoids. Again using the 45 degree thru-bite we opened the partitions of ethmoid cells. We identified the orbital apex cell and the skull base and orbit posteriorly and laterally and confirmed with our straight navigation suction. We then moved inferomedially to identify the superior turbinate and took down the inferior third of it. We then identified the natural sphenoid os, dilated it downward with the carlee elevator and widely opened our sphenoidotomy with a kerrison punch and 45 degree thru- bite. Polypoid changes and mucosa were noted and removed from the sphenoid os. The skull base was identified within the sphenoid sinus. The sinus then was copiously irrigated. Moving from a posterior to anterior direction, we continued opening the ethmoid cells until we reached the frontal recess. The skull base was protected at all times.. The agger nasi cell was taken down with the frontal kerrison. Angled instrumentation and an angled microdebrider was then used to open the natural frontal sinus outflow tract circumferentially. The frontal sinus was noted to be widely patent. The sinus then was copiously irrigated. Next, the bilateral nasal cavities were irrigated and hemostasis was achieved. Hemaderm and Posisepwere placed into the sinus cavities. An orogastric tube was passed into the stomach to remove fluidswallowed during the case. The patient was then rotated back toward anesthesia who extubated the patient safely and transported the patient to the recovery room in stable condition. Teaching Surgeon Attestation: Dr. Khan was present for and participated in all portions of this case. CLINICAL DOCUMENTATION * Brief Op Note - Konrad Damon MD - 12/17/2023 11:38 AM RN CLINICAL DOCUMENTATION Operative Progress Note Surgical Team: Surgeons and Role: * Samir Khan MD - Primary * Konrad Damon MD Anesthesiologist: Jazmyn Massey MD MICROSCOPIST: Jackie Mendoza CRNA; Claudette Pennington CRNA Sign Builder Supervisor: Sheron Mensah RN Scrub: Gem Salazar ST FLOAT: Allie Frost RN DATE OF SURGERY : 12/17/2023 Preoperative Diagnosis: Pre-op Diagnosis * Chronic pansinusitis [J32.4] Postoperative Diagnosis: Post-op Diagnosis * Chronic pansinusitis [J32.4] Procedure(s): Procedure(s) (LRB): ENDOSCOPIC SINUS SURGERY WITH NAVIGATION (Bilateral) Operative Findings: Bilateral maxillary antrostomy, total ethmoidectomy, sphenoidotomy, and frontal sinusotomy. Purulence throughout bilateral ethmoids and right sphenoid. Estimated Blood Loss: 25 mL Intraoperative Fluids: See anesthesia note Specimens: ID Type Source Tests Collected by Time A : RIGHT SINUS CONTENTS Tissue Sinus contents SURGICAL PATHOLOGY Samir Khan MD 12/17/2023 1244 B : LEFT SINUSCONTENTS Tissue Sinus contents SURGICAL PATHOLOGY Samir Khan MD 12/17/2023 1244 Implants: Nothing was implanted during the procedure Blood/Blood Products Transfused: 0 mls Complications: None Condition on Discharge from the operating room was stable Konrad Damon MD Date: 12/17/2023 Time: 1:35 PM TEACHING ATTESTATION : I was present and directly participated in the entire procedure (including opening and closing). Cosigned by Samir Khan MD at 12/17/2023 1:41 PM RN CLINICAL DOCUMENTATION CLINICAL DOCUMENTATION CLINICAL DOCUMENTATION * Pre-Procedure Instructions - Krupa Sullivan NP - 12/10/2023 11:05 AM CST [facility] CP[facility] Clinic Location: [facility] The night before your surgery: * Do not eat anything after midnight the night before your procedure. The morning of your surgery: * You may have clear liquids on your surgery day. You must stop drinking two hours before you arrive to the surgery facility. Acceptable clear liquids include water, clear sports drinks, black coffee, or clear soda. DO NOT drink any milk, creamer, or alcohol. * Your surgeon's office may have provided additional instructions or restrictions. Please follow those instructions. * You may brush your teeth and rinse your mouth out. * Do not glue your dentures. * Do not wear jewelry, body piercings, makeup, hairpins, false eyelashes or contact lenses to the hospital. * Leave any valuables at home or with your family. * If you have an implantable device with a remote, bring the remote with you on the day of surgery. * If you use home oxygen, bring your portable oxygen tank with you on the day of surgery Outpatient Surgery: * You must have a responsible adult drive you home and stay with you for 24 hours after your surgery * You cannot be alone at home or in a hotel * Please call your surgeon's office if you do not have someone to drive you home and/or stay with you after surgery * Please bring any items you may need to spend the night in the hospital. Sometimes patients need to be cared for in the hospital overnight. If you have Diabetes: * If your blood sugar is low before you come to the hospital, drink a small amount of sugar water or clear juice like apple or cranberry juice. DO NOT drink orange or pineapple juice. These are not clear liquids. * Please call your surgeon and/or the CPAP Clinic if you have any questions. Instructions For Your Medications: Pre-Surgery Instructions: Medication Instructions artificial tears,hypromellose, 0.3 % drops Don't take on day of surgery ascorbic acid (ascorbic acid with darlene hips) 500 mg tablet Don't take on day of surgery ascorbic acid/collagen hydr (COLLAGEN SKIN RENEWAL ORAL) Stop taking 1 week prior to surgery aspirin 81 mg enteric coated tablet Stop taking 7 days prior to surgery budesonide (PULMICORT) 0.5 mg/2 mL nebulizer solution Per surgeons instructions calcium carbonate (CALCIUM 600) 1,500 mg (600 mg of elemental calcium) tablet Don't take on day of surgery cycloSPORINE (RESTASIS) 0.05 % ophthalmic emulsion Don't take on day of surgery ferrous sulfate 325 mg (65 mg of elemental iron) tablet Don't take on day of surgery levothyroxine (SYNTHROID) 100 mcg tablet Take morning of surgery losartan (COZAAR) 25 mg tablet Don't take on day of surgery, don't take the night before surgery losartan (COZAAR) 50 mg tablet Don't take on day of surgery, don't take the night before surgery metFORMIN (GLUCOPHAGE) 500 mg tablet Don't take on day of surgery multivitamin tablet tablet Stop taking 1 week prior to surgery nadoloL (CORGARD) 40 mg tablet Take morning of surgery omeprazole (PriLOSEC) 20 mg capsule Take morning of surgery General Instructions For Medications: * Stop all of these medications 5 days prior to your surgery: excedrin, motrin, advil, ibuprofen, aleve, naproxen, meloxicam, celebrex, celecoxib. For medications that you are instructed to take on the morning of surgery, take the medications with a few sips of water. Stop all of these medications 7-14 days prior to your surgery: Vitamin E, Herbal medicines, Diet Pills If you use inhalers, please bring them with you on the day of your procedure. If you have pain, you may take tylenol (acetaminophen). Do not take more than 6 tablets or 3000 mg (3 g) within a 24 period. Call your surgeon and the CPAP clinic if any of the following happens before surgery: Any changes in your health You have a fever You have any signs of an infection (chest, urinary tract or tooth) You have been to the Emergency Room or were in the hospital You have started taking any new medications You have questions about a bowel prep or special diet before surgery You have symptoms of COVID-19 such as a new or worsening cough, shortness of breath, fever, body aches, loss of taste or smell, diarrhea or vomiting, or sore throat. You have a household contact with COVID-19. You test positive for COVID-19. CLINICAL DOCUMENTATION * Perioperative Nursing Note - Yessi Holamn RN - 12/01/2023 9:19 AM CST [facility] Preoperative Assessment and Planning Perioperative Nursing Note Telephone Preoperative Evaluation ([facility]) - TELEPHONE ONLY, NO PHYSICAL EXAM Date: 12/01/23 This assessment was completed with the patient. Vitals: 12/01/23 0915 Weight: 68.9 kg (152 lb) Height: 160 cm (5' 3 ) Social History Tobacco Use Smoking Status Never Smokeless Tobacco Never Substance and Sexual Activity Drug Use Never Alcohol Use Q2: How many drinks containing alcohol do you have on a typical day when you are drinking?: Patientdoes not drink Outpatient Medications Marked as Taking for the 12/17/23 encounter (Hospital Encounter) Medication Sig Dispense Refill artificial tears,hypromellose, 0.3 [...] capsule/ampule in 250 mL of saline irrigations (NeYouth Noise Sinus Rinse Bottle) and irrigate each nostril with half of the bottle twice daily. (Patient taking differently: 2 mL (0.5 mg total) 2 (two) times a day Mix 1 capsule/ampule in 250 mL of saline irrigations (NeYouth Noise Sinus Rinse Bottle) and irrigate each nostril [...] 1 tablet (100 mcg total) by mouth compensation coordinator before breakfast losartan (COZAAR) 25 mg tablet [...] tablet by mouth every morning) 0 0 nadoloL (CORGARD) 40 mg tablet Take 1 tablet (40 mg total) by mouth every morning omeprazole (PriLOSEC) 20 mg capsule Take 1 capsule (20 mg total) by mouth every morning Implants No active implants to display in this view. SKIN Piercings Remaining: No Wound (LDAs) Type of Wound (LDA): (denies) SCREENINGS Alexandra index score: 100 PATIENT CARE PLANNING Advance Directives (For Healthcare) Have you reviewed your Advance Directive and is it valid for this stay?: Yes Advance Directive: Patient has advance directive, copy not in chart Advance Directive not in Chart: Copy requested from family Communication/Yard Associate Needs Communication Needs: Glasses Assistive Devices/DME: Eyeglasses Discharge Planning Type of Residence: Private residence Living Arrangements: Spouse/significant other Support Systems: Spouse/significant other Patient expects to be discharged to:: 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 Arrival time and surgical time will be provided to the patient by their surgeon. You should wear clothing that is clean, loose, comfortable and easy to get in and out of on the dayof surgery. You should remove nail coverings, artificial nails and nail bahraini prior to the day of surgery. You should leave your valuables and any jewelry at home. No metal or piercings are allowed in the operating room. You should bring your insurance card, a photo ID (example: Geological Technician's License) and a method of payment for any insurance copay, deductible or copay for discharge medications. You should bring a complete, up-to-date, list of all your medications on the day of surgery, including any over the counter medications or supplements you may take. Please note on your medication list, the last date & time you took each medication. The healthcare team, on the day of surgery, will ask for this information. You should bring your Advanced Directive and/or Living Will with you on the day of surgery if you have not verified a copy is already in your Epic Chart. If you are having surgery at [facility], please arrive on the day of surgery with the name and phone number of your local 24 hour pharmacy. Due to evening discharges, your routine pharmacy may be closed. In order to obtain your prescriptions that evening, your surgeon may need to send prescriptions to this pharmacy or have you take prescriptions to this pharmacy when you are discharged. Without this information, you may not be able to obtain your prescriptions that evening. A Guide for Patients Having Surgery: Your Pathway to Excellent Care OUR GOAL IS TO PROVIDE YOU WITH EXCELLENT CARE Use this guide to learn about what you can do before, during and after surgery to help your recovery. You are the most important person on your health care team. By becoming informed and involved, you can contribute to the success of your surgery. If your surgeon's directions are different than those in this guide, talk with your nurse or surgeon to confirm the information. It is important that you understand how to take care of yourself at home after surgery. Be sure to bring this guide with you on the day of surgery and take it home with you after surgery. Write down questions for your nurse or surgeon on the last page of this booklet. Important pages to be reviewed BEFORE surgery: Page 1: QR codes for Surgery Center maps Page 3: Types of Anesthesia Page 5: Tips for the day & night before surgery Page 6: When to stop eating BEFORE surgery and examples of clear liquids Page 7-10: Preventing Infection: Chlorhexidine Gluconate (CHG) Bathing Instructions You may access A Guide for Patients Having Surgery: Your Pathway to Excellent Care by the followinglink: [email or web address] How To Prepare Your Skin For Surgery Below is the Pre-Surgical Bathing Protocol you should follow for your surgery. If your surgeon provides you different bathing instructions, please follow your surgeon's orders. Normal Bathing: Bathe with regular soap the night before and/or day of surgery. Normal Bathing Protocol Bathe with your normal soap the night before and/or the morning of surgery. Wear clean clothes or pajamas to sleep in. After showering DO NOT put on deodorant, hair products, conditioners, lotions, creams, powders, Vaseline or any non-essential products. Remove nail coverings, artificial nails and nail bahraini. Place clean linens on your bed the night before surgery. Shaving: You may shave your face, legs and underarms during your evening shower. Avoid shaving on the day of surgery. Travel/Exposure Screening: Travel Screening Have you traveled outside the [place] in the last 6 months?: No Exposure Screening Have you been exposed to anyone who is sick in the last 30 days?: No Have you been exposed to or tested positive for COVID-19 within the last 10 days?: No Infectious Disease Screening Are you having any of the following:: Cough New or worsening cough for more than one month? : No As of 08/04/2022 any COVID TESTING required for surgery will be set up by your surgeon's office. Please reach out to your surgeon's office if you develop any COVID symptoms, test positive for COVID or are exposed to a COVID positive person. If you have questions, please call the [facility] Staff at [phone], Wednesday-Wednesday 8am-4:30pm. All patients should read the below section: COVID 19 Updates & Visitor Policy: Please access [email or web address] for the most updated information. Information on [facility]: Please view [email or web address] (Patient & Visitor Information) for additional details regarding Advanced Directive forms, AWARE, directions, parking information, lodging, Internet access, dining and more. Information on [facility] or [facility] ([facility]): Please view [email or web address] (Patient and Visitor Information) for parking/directions and more. For MyChart information, to activate account or password recovery, please go to [email or web address] or call [phone] (toll-free: [phone]), Wed- Wednesday 8am-5pm. Information for Suicide Prevention: National Suicide Prevention Lifeline (6-145- 727-VFNI (4974)) or call or text 866. Chat resources: [email or web address]. Surgery Times: For patients having surgery @ [facility], if your surgeon's office has not notified you of your surgery time by 2pm THE BUSINESS DAY BEFORE your surgery, please call the surgery center at [phone] and ask for your surgeon's office. [facility] ([facility]) does not provide arrival times for the day of surgery or provide the duration of surgery. This information is provided by your surgeon'soffice or by the center where you are having surgery. We appreciate your understanding. CLINICAL DOCUMENTATION documented in this encounter Plan of Treatment Not on file documented as of this encounter Procedures Procedure Name Priority Date/Time Associated Diagnosis Comments POCT GLUCOSE DEVICE Routine 12/17/2023 1:24 PM RN CLINICAL DOCUMENTATION SURGICAL PATHOLOGY Routine 12/17/2023 12:44 PM RN CLINICAL DOCUMENTATION Chronic pansinusitis AEROBIC AND ANAEROBIC CULTURE AND GRAM STAIN Routine 12/17/2023 11:43 AM RN CLINICAL DOCUMENTATION ENDOSCOPIC SINUS SURGERY WITH NAVIGATION 12/17/2023 11:08 AM RN CLINICAL DOCUMENTATION Chronic pansinusitis Case Notes Bilateral ENDOSCOPIC MAXILLARY ANTROSTOMYBilateral ENDOSCOPIC TOTAL ETHMOIDECTOMYBilateral ENDOSCOPIC SPHENOIDOTOMYBilateral ENDOSCOPIC FRONTAL SINUS RECESS EXPLORATIONImages: 10/18 POCT GLUCOSE DEVICE Routine 12/17/2023 11:02 AM RN CLINICAL DOCUMENTATION POCT GLUCOSE DEVICE Routine 12/17/2023 8:32 AM RN CLINICAL DOCUMENTATION documented in this encounter Results * POCT glucose (12/17/2023 1:24 PM RN CLINICAL DOCUMENTATION) Glucose, POC 147 70 - 199 mg/dL Comment: Interpretive Data Glucose is assumed to be non-fasting. Fasting Glucose reference ranges are: 0 - 150 years: ??70 mg/dL - 99 mg/dL Current interpretive data was last revised on 2014. POC Performer [id number] [facility] POC Device Number [id number] [facility] Blood 12/17/2023 1:24 PM RN CLINICAL DOCUMENTATION 12/17/2023 1:24 PM RN CLINICAL DOCUMENTATION us Samir Khan MD LAB POCT ORDERABLES - DE VICE Final Result [facility] [id number] [facility]. Department [place] [address] * Surgical pathology (12/17/2023 12:44 PM RN CLINICAL DOCUMENTATION) Tissue (Sinus contents) 12/17/2023 12:44 PM RN CLINICAL DOCUMENTATION Tissue (Sinus contents) 12/17/2023 12:44 PM RN CLINICAL DOCUMENTATION Narrative PATHOLOGY [facility] - 12/23/2023 1:10 PM CDT EPIC results best viewed via link to PDF [facility] [place] [address] Note to Patients: This report may contain a detailed description of human tissue sent by a health care provider to the laboratory for pathologic evaluation. The content of this report is essential for diagnosis and may provide important critical findings. This information may be unfamiliar to patients to review without a medical professional present. It is advised that the patient review this report in the presence of a health care provider who can answer questions and explain the details. SURGICAL PATHOLOGY REPORT FINAL Patient Name: ?? MAGGIE ERZAO Gender: ??F : ??1940 (Age: 83) Address: ??[address] [place] [address] ??[id number] Hospital #: ??[id number] Taken:12/17/2023 Received:12/17/2023 Reported: 12/23/2023 Patient Type: [facility] EP SAME Client ?[facility] Service: Surgery Location: Physician(s): ??Samir Khan M.D. Isreal Lin M.D. Diagnosis: A. ??Paranasal sinus, right, excision ? - Respiratory mucosa with chronic inflammation ? B. ??Paranasal sinus, left, excision ? - Respiratory mucosa with chronic inflammation mxxm/12/23/2023 13:10 By this signature, I attest that the above diagnosis is based upon my personal examination of the slides(and/or other material indicated in the diagnosis). Abby Goldsmith MD Report Electronically Reviewed and Signed Out By ??Abby Goldsmith MD 12/23/2023 13:10:55 History: The patient is a 83-year-old with history of chronic pansinusitis. ??Operative procedure: ??Endoscopic sinus surgery with navigation Specimen(s) Received: A: Right Sinus contents B: Left Sinus contents Gross Description: Received in two formalin jars labeled with the patient's identifiers. A. ??Labeled right sinus contents are multiple fragments of mtz-brown to hemorrhagic soft tissue with intermixed bony fragments that measure 3.0 x 3.0 x 0.2 cm in aggregate. ??The specimen is placed in decal one and subsequently entirely submitted. Labeled A1. Jar 0. B. ??Labeled left sinus contents are multiple fragments of mtz-brown to hemorrhagic soft tissue with intermixed bony fragments that measure 3.0 x 2.0 x 0.2 cm in aggregate. ??The specimen is placed in decal one and subsequently entirely submitted ?? Labeled B1. Jar 0. ?? rxr/12/20/2023 10:31 PA(s): Sue Decker MS, ARNAV([facility])CM By this signature, I attest that the above diagnosis is based upon my personal examination of the slides(and/or other material). Addenda/Procedures Microscopic slide review and interpretation for this case was performed at [facility], Department of Surgical Pathology, [address] [facility] [address], [id number], ??[place], [place] ??[address] ?? CLIA # [id number] The performance characteristics of some immunohistochemical stains, fluorescence in-situ hybridization tests and immunophenotyping by flow cytometry cited in this report (if any) were determined by the Surgical Pathology and Flow Cytometry Departments at [facility] as part of an ongoing senior quality assurance specialist program and in compliance with federally mandated regulations drawn from the Clinical Laboratory Improvement Act of 1988 (CLIA '88). ??Some of these tests rely on the use of analyte specific reagents and are subject to specific labeling requirements by the US Food and Drug Administration. ??Such diagnostic tests may only be performed in a facility that is certified by the Department of Health and Human Services as a high complexity laboratory under CLIA '88. ??The FDA has determined that such clearance or approval is not necessary. ??This test is used for clinical purposes. ??It should not be regarded as investigational or for research. ??Nevertheless, federal rules concerning the medical use of analyte specific reagents require that the following disclaimer be attached to the report: This test was developed and its performance characteristics determined by the Surgical Pathology and Flow Cytometry Departments of [facility]. ??It has not been cleared or approved by the U. S. Food and Drug Administration. IMAGES AND SCANNED DOCUMENTS, IF INCLUDED, ONLY VIEWABLE IN PDF VERSION OF REPORT Samir Khan MD LAB PATHOLOGY ORDERABLES Final Result [facility] [phone] * (ABNORMAL) Aerobic and anaerobic culture and gram stain Wound Sinus (12/17/2023 11:43 AM RN CLINICAL DOCUMENTATION) Direct Specimen Exam Stain: Few polymorphonuclear leukocytes seen. Few Gram Positive Cocci Comment:Testing performed by : [facility], [address] [place] [address]., [id number] Report Final Report: Heavy growth of: Staphylococcus aureus, methicillin susceptible (.) PAOLO SONG Comment:Testing performed by : [facility], [address] [place] [address]., [id number] Organism STAPHYLOCOCCUS AUREUS, METHICILLIN SUSCEPTIBLE PALOO SONG Wound (Sinus) 12/17/2023 11: 43 AM RN CLINICAL DOCUMENTATION 12/17/2023 3:25 PM RN CLINICAL DOCUMENTATION Narrative PAOLO SONG - 12/20/2023 11:37 AM CDT RIGHT SPHENOID Aerobic swab received. Please note anaerobes may not grow. [id number] Organism Antibiotic Method Susceptibility Staphylococcus aureus, methicillin susceptible Cefazolin (ALESSANDRO) INTERPRETATION Susceptible Staphylococcus aureus, methicillin susceptible Clindamycin (ALESSANDRO) INTERPRETATION Resistant Staphylococcus aureus, methicillin susceptible Erythromycin (ALESSANDRO) INTERPRETATION Resistant Staphylococcus aureus, methicillin susceptible Oxacillin (ALESSANDRO) INTERPRETATION Susceptible Staphylococcus aureus, methicillin susceptible Tetracycline (ALESASNDRO) INTERPRETATION Susceptible Staphylococcus aureus, methicillin susceptible Trimethoprim with Sulfamethoxazole (ALESSANDRO) INTERPRETATION Susceptible Staphylococcus aureus, methicillin susceptible Vancomycin (ALESSANDRO) INTERPRETATION 1 mcg/mL: Susceptible Samir Khan MD LAB MICROBIOLOGY - GENER AL ORDERABLES Final Result Performing Organization Address City/[facility] Co de Phone Number [facility] [address] [facility] [place] [address] * POCT glucose (12/17/2023 11:02 AM RN CLINICAL DOCUMENTATION) Glucose, POC 148 70 - 199 mg/dL Comment: Interpretive Data Glucose is assumed to be non-fasting. Fasting Glucose reference ranges are: 0 - 150 years: ??70 mg/dL - 99 mg/dL Current interpretive data was last revised on 2014. POC Performer [id number] [facility] POC Device Number [id number] [facility] Blood 12/17/2023 11:0 2 AM RN CLINICAL DOCUMENTATION 12/17/2023 11:02 AM RN CLINICAL DOCUMENTATION Samir Khan MD LAB POCT ORDERABLES - DE VICE Final Result Performing Organization Address [facility] Co de Phone Number [facility] [phone] [facility] [place] [address] * POCT glucose (12/17/2023 8:32 AM RN CLINICAL DOCUMENTATION) Glucose, POC 142 70 - 199 mg/dL Comment: Interpretive Data Glucose is assumed to be non-fasting. Fasting Glucose reference ranges are: 0 - 150 years: ??70 mg/dL - 99 mg/dL Current interpretive data was last revised on 2014. POC Performer [id number] [facility] POC Device Number [id number] [facility] Blood 12/17/2023 8:32 AM RN CLINICAL DOCUMENTATION 12/17/2023 8:32 AM RN CLINICAL DOCUMENTATION Samir Khan MD LAB POCT ORDERABLES - DE VICE Final Result Performing Organization Address City/State/ZIP Nm de Phone Number [facility] [address] [facility]. [place] [address] documented in this encounter Visit Diagnoses Diagnosis Chronic sinusitis- Primary Unspecified sinusitis (chronic) Chronic pansinusitis Other chronic sinusitis documented in this encounter Admitting Diagnoses Diagnosis Chronic sinusitis Unspecified sinusitis (chronic) documented in this encounter Administered Medications Inactive Administered Medications - up to 3 most recent administrations Medication Order MAR Action Action Date Dose Rate Site acetaminophen (TYLENOL) tablet 500 mg 500 mg, oral, Every 6 hours PRN, headaches, other, Breakthrough Pain and Supplement to other pain meds, Starting on Wed12/17/23 at 1300, For 2 doses, Phase I, When able to tolerate PO after consulting with Anesthesiologist. Do not administer if patient has already received Acetaminophen-containing medications in PACU., Indications: PainIndications:Pain Given 12/17/2023 2:28 PM RN CLINICAL DOCUMENTATION 500 mg ondansetron (ZOFRAN) injection 4 mg 4 mg, intravenous, Administer over 2 Minutes, Once as needed, nausea, vomiting, Starting on Wed12/17/23 at 1300, For 1 dose, Phase I, Proceed to prochlorperazine if ondansetron has been given within the last 6 hours. Given 12/17/2023 1:47 PM RN CLINICAL DOCUMENTATION 4 mg documented in this encounter Discontinued Medications Medication Sig Discontinue Reason Start Date End Da te losartan (COZAAR) 25 mg tablet take 1 tablet by oral route every day bedtime Alternate therapy 06/22/2016 12/01/2023 pediatric cqcugtgo-bjol-szk tablet,chewable Take by mouth daily Therapy completed 12/01/2023 documented as of this encounter Historical Medications * This list may reflect changes made after this encounter. ascorbic acid/collagen hydr (COLLAGEN SKIN RENEWAL ORAL)Indications: supplement Take 1 tablet by mouth every morning Not started losartan (COZAAR) 25 mg tabletIndications :hypertension Take 1 tablet (25 mg total) by mouth nightly added in this encounter Active and Recently Administered Medications Times are shown in RN CLINICAL DOCUMENTATION. Continuous Medication Order 12/15/2023 12/16/2023 12/17/2023 Lactated Ringer's (LR) infusion 30 mL/hr, intravenous, Continuous, Starting on Wed12/17/23 at 0845, For 4 hours, Pre-Op, Use a 500 ml bag for End Stage Renal Disease Patients. Discontinue if fluid still running once patient arrives to floor. 1108 (New Bag - Prov ider: Claudette Pennington CRNA)1155 (New Bag - Provider: Claudette Pennington CRNA)1304 (Anesthesia Volume Adjustment - Provider: Claudette Pennington CRNA) Lactated Ringer's (LR) infusion 125 mL/hr, intravenous, Continuous, Starting on Wed12/17/23 at 1345, For 4 hours, Phase I, Discontinue upon discharge from PACU to the floor. 1345 (Due) PRN Medication Order 12/15/2023 12/16/2023 12/17/2023 acetaminophen (TYLENOL) tablet 500 mg 500 mg, oral, Every 6 hours PRN, headaches, other, Breakthrough Pain and Supplement to other pain meds, Starting on Wed12/17/23 at 1300, For 2 doses, Phase I, When able to tolerate PO after consulting with Anesthesiologist. Do not administer if patient has already received Acetaminophen-containing medications in PACU., Indications: Pain 1428 (Given - Provid er: Dana Marinelli RN) diphenhydrAMINE (BENADRYL) 50 mg/mL injection 12.5 mg 12.5 mg, intravenous, Administer over 1 Minutes, Every 5 min PRN, itching, other, For Nausea, administer 25 mg IV., Starting on Wed12/17/23 at 1300, For 4 doses, Phase I, Max cumulative dose 50 mg., Indications: Itching fentaNYL (SUBLIMAZE) preservative free injection 25 mcg 25 mcg, intravenous, Every 5 min PRN, 2nd line for pain, Use Fentanyl as 1st line medication for extremely severe pain for outpatients, and follow with oral pain medication., Starting on Wed12/17/23 at 1300, For 4 doses, Phase I, Use as 1st line for outpatients, dose not to exceed 100 mics. If pain still extremely severe after 100 mics of Fentanyl, may proceed to Dilaudid after consulting with Anesthesiologist. If patient able to tolerate PO meds and pain improved after Fentanyl, proceed to Oral pain medication., Indications: Pain hydrALAZINE (APRESOLINE) injection 5 mg 5 mg, intravenous, Administer over 2 Minutes, Every 5 min PRN, high blood pressure, Starting on Wed12/17/23 at 1300, Phase I, Max cumulative dose 20 mg. Dose if systolic BP greater than 180 AND heart rate less than 70., Indications: hypertension HYDROcodone-acetaminophen (NORCO) 5-325 mg per tablet 1 tablet 1 tablet, oral, Every 20 min PRN, 3rd line for pain, breakthrough pain, May use as 1st line pain medication if pain not extremely severe and patient able to tolerate PO meds. If unable to tolerate PO meds or outpatient complaining of extremely severe pain, start with Fentanyl and follow with Oral meds., Starting on Wed12/17/23 at 1300, For 2 doses, Phase I, May administer TWO pills together if pain moderate to severe and patient able to tolerate PO meds, after consulting with Anesthesiologist., Indications: Pain 1425 (Not Given - Pr ovider: Dana Marinelli RN - Reason: Patient/family refused) HYDROmorphone (DILAUDID) injection 0.2 mg 0.2 mg, intravenous, Administer over 2 Minutes, Every 5 min PRN, 1st line for pain, Use as 1st line pain med for inpatients or for patients with extremely severe pain., Starting on Wed12/17/23 at 1300, Phase I, Use as first line pain medication for inpatients. May use as first line medication for outpatients with extremely severe pain (7 out of 10 or above), history of opioid tolerance, or history of Chronic Pain with opioid tolerance, after consulting with Anesthesiologist. Inform anesthesiologist when dose reaches 2 mg for inpatients or 1 mg for outpatients., Indications: Chronic Pain with Opioid Tolerance, Pain, Severe Pain with Opioid Tolerance labetaloL (NORMODYNE,TRANDATE) injection 5 mg 5 mg, intravenous, Every 5 min PRN, high blood pressure, Starting on Wed12/17/23 at 1300, For 4 doses, Phase I, Max cumulative dose 20 mg. Dose if systolic blood pressure greater than 180 AND HR greater than 70. meperidine (DEMEROL) preservative free injection 12.5 mg 12.5 mg, intravenous, Administer over 5 Minutes, Every 10 min PRN, shivering, Starting on Wed12/17/23 at 1300, For 2 doses, Phase I, Max cumulative dose 25 mg., Indications: Shivering naloxone (NARCAN) 0.4 mg/mL injection 0.04-0.4 mg 0.04-0.4 mg, intravenous, Once as needed, other, excessive sedation/respiratory depression, Starting on Wed12/17/23 at 1300, For 1 dose, Phase I, Dilute 0.4 mg with 9 mL NS (final concentration 0.04 mg/mL). For respiratory depression (respiratory rate less than 6), administer 0.4 mg IVP over 30 seconds. For excessive sedation administer 0.04 mg (1 mL) every 1 minute until desired level of alertness. Consult with Anesthesiologist before administration. Administer 40 mics at a time. For IV, administer over 30 seconds., Indications: Opioid Toxicity ondansetron (ZOFRAN) injection 4 mg (COMPLETED) 4 mg, intravenous, Administer over 2 Minutes, Once as needed, nausea, vomiting, Starting on Wed12/17/23 at 1300, For 1 dose, Phase I, Proceed to prochlorperazine if ondansetron has been given within the last 6 hours. 1347 (Given - Provid er: Dana Marinelli RN) oxymetazoline (AFRIN) 0.05 % nasal spray (CANCELED) As needed, Starting on Wed12/17/23 at 1154, Intra-Op 1154 (Given - Provid er: Samir Khan MD - Comment: SOAKED IN COTTONOIDS) prochlorperazine (COMPAZINE) injection 5 mg 5 mg, intravenous, Administer over 2 Minutes, Once as needed, nausea, vomiting, Starting on Wed12/17/23 at 1300, For 2 doses, Phase I, If nausea/vomiting not relieved by ondansetron within 30 minutes or if ondansetron has been given within the last 6 hours. May repeat in 15 minutes of nausea not relieved. sodium chloride 0.9% irrigation (CANCELED) As needed, Starting on Wed12/17/23 at 1154, Intra-Op 1154 (Given - Provid er: Samir Khan MD) documented in this encounter Orders Medications Ordered That Salvatore ht Not Have Been Administered Count Last Ordered Date First Ordered Date diphenhydrAMINE (BENADRYL) 5 0 mg/mL injection 12.5 mg 1 12/17/2023 famotidine (PEPCID) injection 20 mg 1 12/16 fentaNYL (SUBLIMAZE) preserv ative free injection 25 mcg 1 12/17/2023 hydrALAZINE (APRESOLINE) injection 5 mg 1 0 12/17/2023 HYDROcodone-acetaminophen (N ORCO) 5-325 mg per tablet 1 tablet 1 12/17/2023 HYDROmorphone (DILAUDID) injection 0.2 mg 1 12/17/2023 labetaloL (NORMODYNE,TRANDAT E) injection 5 mg 1 12/17/2023 Lactated Ringer's (LR) infusion 2 lidocaine (PF) (XYLOCAINE) 1 0 mg/mL (1 %) preservative free injection 2-10 mg 1 12/17/2023 meperidine (DEMEROL) preserv ative free injection 12.5 mg 1 12/17/2023 naloxone (NARCAN) 0.4 mg/mL injection 0.04-0.4 mg 1 12/17/2023 oxymetazoline (AFRIN) 0.05 % nasal spray 1 12/17/2023 prochlorperazine (COMPAZINE) injection 5 mg 1 12/17/2023 scopolamine patch 72 hour 1 patch 1 024 sodium chloride 0.9% flush 0.5-20 mL 1 05/2024 sodium chloride 0.9% irrigation 1 4 Discharge Count Last Ordered Date First Orde red Date DISCHARGE PATIENT 1 12/17/2023 documented in this encounter Care Teams Jewelsmith Relationship Specialty Start Date End Date Isreal Lin MD PCP - General Family Practice 08/30/23 documented as of this encounter
--- OUTSIDE RECORDS SUMMARY | 2024-09-25 22:00 | XMS_ITS | Encounter Summary ---
Author Organization [facility] Address [address] [place] [address] Care Team Providers Care Machine Dyer Name Role Phone Karin Cordoba NP Primary Care Provider Reason for Visit * Reason Comments Hypertension 1 yr f/u Dyslipidemia Encounter Details Date Type Department Care Team (Latest Contact Info) Description 09/23/2020 10:30 AM CHIEF COUNSEL Office Visit [facility] Cardiology [address] [place] [id number] David Rascon MD [id number] [place] [address] Coronary artery calcification seen on CT scan (Primary Dx); Dizziness; Palpitations; Hypertension associated with diabetes (CMS/HCC); Statin myopathy; Other chest pain; Dyslipidemia associated with type 2 diabetes mellitus (CMS/HCC); Acquired hypothyroidism; Lipid screening Social History Tobacco Use Types Packs/Day Years Used Date Smoking Tobacco: Never Smokeless Tobacco: Never Alcohol Use Standard Drinks/Week Comments No 0 (1 standard drink = 0.6 oz pur e alcohol) Comments Unknown Sex and Gender Information Value Date Recorded Sex Assigned at Not on file Legal Sex Female 3:37 AM CHIEF COUNSEL Gender Identity Female 01/28/2024 11:49 PM CDT Sexual Orientation Straight 08/12/2022 12 :04 PM CDT documented as of this encounter Last Filed Vital Signs Vital Sign Reading Time Taken Comments Blood Pressure 122/72 09/23/2020 10:26 AM CHIEF COUNSEL Pulse 70 09/23/2020 10:26 AM CHIEF COUNSEL Temperature - - Respiratory Rate - - Oxygen Saturation 98% 09/23/2020 10: 26 AM CHIEF COUNSEL Inhaled Oxygen Concentration - - Weight 68.8 kg (151 lb 11.2 oz) 020 10:26 AM CHIEF COUNSEL Height 160 cm (5' 3 ) 09/23/2020 10:26 AM CHIEF COUNSEL Body Mass Index 26.87 09/23/2020 10:26 AM CHIEF COUNSEL documented in this encounter Progress Notes * David Rascon MD - 09/23/2020 10:30 AM CST [facility] DATE OF VISIT: 09/23/2020 CHIEF COMPLAINT Chief Complaint Patient presents with ??? Hypertension 1 yr f/u ??? Dyslipidemia HPI Maggie Erazo is a 79 y.o. female with a PMHx of diabetes mellitus, hypertension, dyslipidemia, fatty liver disease/cirrhos and history of remote palpitations in the and who is seen in very kind [...] often once every couple of weeks maybe grover is not paying attention not too bothersome to her. No assoc palps but she can notice skipping beats on occasion. Started taking ASA at noon with big meal now for 1-2 months. No bleeding or melena. MEDICAL HISTORY Past Medical History: Diagnosis Date ??? Hypertension Social History Tobacco Use ??? Smoking status: Never Smoker ??? Smokeless tobacco: Never Used Substance Use Topics ??? Alcohol use: No ??? Drug use: Not on file Family History Problem Relation Age of Onset ??? Alzheimer's disease Father Alzheimer's disease; ??? Kidney failure Father 91 Kidney failure; Cause of : Kidney failure ??? Stroke Mother Stroke; ??? Hypertension Mother Hypertension; MEDICATIONS HOME MEDICATIONS : artificial tears,hypromellose, 0.3 % drops ascorbic acid (ascorbic acid with darlene hips) 500 mg tablet aspirin 81 mg enteric coated tablet calcium carbonate (CALCIUM 600) 1,500 mg (600 mg of elemental calcium) tablet cycloSPORINE (RESTASIS) 0.05 % ophthalmic emulsion fluticasone (FLONASE) 50 mcg/actuation nasal spray losartan (COZAAR) 25 mg tablet losartan (COZAAR) 50 mg tablet metFORMIN (GLUCOPHAGE) 500 mg tablet montelukast (SINGULAIR) 10 mg tablet multivitamin tablet tablet nadoloL (CORGARD) 40 mg tablet omeprazole (PriLOSEC) 20 mg capsule polycarbophil (FIBERCON) 625 mg tablet atenolol (TENORMIN) 50 mg tablet cycloSPORINE (RESTASIS) 0.05 % ophthalmic emulsion levothyroxine sodium (TIROSINT) 125 mcg capsule ALLERGIES Allergies Allergen Reactions ??? Adhesive Tape-Silicones Hives ??? Ezetimibe Muscle pain ??? Simvastatin Muscle pain ??? Codeine Other (See comments) Acute abd. pain Acute abd. pain, ??? Vqodpzr-Elu-Dsg Reductase Inhibitors Other (See comments) REVIEW OF SYSTEMS Review of Systems Constitution: Positive for weight loss. Negative for decreased appetite, diaphoresis, fever, malaise/fatigue, night sweats and weight gain. HENT: Negative for hearing loss and nosebleeds. Eyes: Negative for blurred vision and pain. Cardiovascular: Positive for chest pain. Negative for claudication, dyspnea on exertion, irregular heartbeat, leg swelling, near-syncope, orthopnea, palpitations and syncope. Respiratory: Negative for cough, hemoptysis, shortness of breath, snoring and wheezing. Endocrine: Negative for cold intolerance and heat intolerance. Hematologic/Lymphatic: Positive for bleeding problem. Does not bruise/bleed easily. Skin: Negative for color change, itching, rash and suspicious lesions. Musculoskeletal: Positive for joint pain. Negative for falls, muscle weakness and myalgias. Gastrointestinal: Positive for abdominal pain and diarrhea. Negative for heartburn, hematemesis, melena and nausea. Genitourinary: Negative for dysuria, hematuria and nocturia. Neurological: Negative for excessive daytime sleepiness, dizziness, focal weakness, headaches, light-headedness, loss of balance and weakness. Psychiatric/Behavioral: Negative for altered mental status, depression and memory loss. The patientis not nervous/anxious. Allergic/Immunologic: Negative for environmental allergies. PHYSICAL EXAM Vitals BP 122/72 (BP Location: Left arm, Patient Position: Sitting) Pulse 70 Ht 160 cm (5' 3 ) Wt 68.8 kg (151 lb 11.2 oz) SpO2 98% BMI 26.87 kg/m?? Weight: 68.8 kg (151 lb 11.2 oz) Height: 160 cm (5' 3 ) Body mass index is 26.87 kg/m??. Physical Exam Constitutional: She is oriented to person, place, and time. She appears well- developed and well-nourished. She is cooperative. No distress. HENT: Head: Normocephalic and atraumatic. Right Ear: External ear normal. Left Ear: External ear normal. Nose: Nose normal. Mouth/Throat: Oropharynx is clear and moist and mucous membranes are normal. Normal dentition. Eyes: Conjunctivae, EOM and lids are normal. No scleral icterus. Neck: Normal range of motion. Neck supple. Normal carotid pulses, no hepatojugular reflux and no JVD present. Carotid bruit is not present. No tracheal deviation present. No thyromegaly present. Cardiovascular: Normal rate, regular rhythm, S1 normal, S2 normal, normal heart sounds, intact distal pulses and normal pulses. Exam reveals no gallop, no S3, no S4, no distant heart sounds and no friction rub. No murmur heard. Pulmonary/Chest: Effort normal and breath sounds normal. No respiratory distress. She has no wheezes. She has no rales. She exhibits no tenderness. Abdominal: Soft. Bowel sounds are normal. She exhibits no distension and no mass. There is no abdominal tenderness. There is no rebound and no guarding. Musculoskeletal: Normal range of motion. General: No tenderness, deformity or edema. Lymphadenopathy: She has no cervical adenopathy. Neurological: She is alert and oriented to person, place, and time. No cranial nerve deficit. She exhibits normal muscle tone. Coordination normal. Skin: Skin is warm and dry. No ecchymosis, no petechiae and no rash noted. She is not diaphoretic. No cyanosis or erythema. No pallor. Nails show no clubbing. Psychiatric: She has a normal mood and affect. Her speech is normal and behavior is normal. Judgment normal. LABS AND OTHER DIAGNOSTIC TESTS No visits with results within 3 Month(s) from this visit. Latest known visit with results is: Office Visit on 09/11/2019 Component Date Value Ref Range Status ??? Cholesterol, POC 09/11/2019 150 mg/dL Final ??? HDL, POC 09/11/2019 59 mg/dL Final ??? Triglycerides, POC 09/11/2019 94 mg/dL Final ??? LDL, Direct, POC 09/11/2019 73 mg/dL Final ??? Chol/HDL Ratio, POC 09/11/2019 2.6 Final ??? Non-HDL Cholesterol, POC 09/11/2019 91 mg/dL Final ??? Cholesterol Total, POC 09/11/2019 150 mg/dL Final Results for orders placed or performed in visit on 09/11/19 POCT lipid panel Result Value Ref Range Cholesterol, POC 150 mg/dL HDL, POC 59 mg/dL Triglycerides, POC 94 mg/dL LDL, Direct, POC 73 mg/dL Chol/HDL Ratio, POC 2.6 Non-HDL Cholesterol, POC 91 mg/dL Cholesterol Total, POC 150 mg/dL Personally reviewed EKG and bloodwork/lipids. ASSESSMENT Diagnoses and all orders for this visit: Coronary artery calcification seen on CT scan (Primary) Dizziness Palpitations Hypertension associated with diabetes (CMS/HCC) Statin myopathy Other chest pain Dyslipidemia associated with type 2 diabetes mellitus (CMS/HCC) Acquired hypothyroidism PLAN/RECOMMENDATIONS 1. No sxs suggestive of angina or claudication. Atypical CP, isolated after COVID without recurrence. Aggressive atherosclerotic risk modification counseling performed. Continue current medical therapy. Notify office immediately with anginal symptoms. She was taking ASA at night she states. -Risk vs benefit balance in favor of ASA . Precautions to take with full glass of water, food and remain upright for at least 60 minutes prior to lying down. -Remains on PPI. -ISchemic eval if CP recurrence. 2. BP controlled. Monitor BP on routine basis. Call with readings. Continue consistent cardiovascular exercise, weight loss, medication compliance, and low- sodium diet. 3. DM managed by PCP 4. Intolerant to statins, unfortunately. Lipids personally reviewed from 09/23/20 LDL 78, fair control. Continue lifestyle and dietary modifications as counseled. 5. Lifestyle modification counseling performed. Weight loss, exercise, reduction in caloric intake. 6. Following [facility] at [facility], Dr. Vanegas. 7. 12 lead EKG today sinus rhythm, occasional ectopic atrial rhythm, low-voltage QRS, PVCs 67 beatsper minute QRS 82 milliseconds QT corrected 420 milliseconds. 8. If recurrent paresthesias, weakness as before go to ER immediately. If more palps, near syncope call office for Holter monitor 7-14 days and 2D Echo. -notify office with recurrent palpitations, dizziness, near-syncope. Advised 7- 14 day monitor and repeat 2D echocardiogram. Patient will monitor and notify the office as instructed. Close observationfor now as patient is feeling well. Over 50% of this visit counseling coronary calcifcation, HTN, lipids, medications, lifestyle modification. Follow up in the office in 4-5 months or sooner as needed. Thank you for allowing me the privilege of participating in the care this very pleasant patient. Please do not hesitate to contact me with any additional questions or concerns. Nicole Rascon MD, [facility] F COUNSEL documented in this encounter Miscellaneous Notes * Addendum Note - Nick Eduardo MA - 09/23/2020 10:30 AM CSTAddended by: NICK EDUARDO on: 09/30/2020 04:04 PM Modules accepted: Orders F COUNSEL documented in this encounter Plan of Treatment Not on file documented as of this encounter Procedures Procedure Name Priority Date/Time Associated Diagnosis Comments POCT LIPID PANEL Routine 09/23/2020 11:5 5 AM CHIEF COUNSEL Lipid screening ECG 12-LEAD Routine 09/23/2020 Palpitations documented in this encounter Results * POCT lipid panel (09/23/2020 11:55 AM CHIEF COUNSEL) Cholesterol, POC 171 mg/dL Comment:GLU = 172 HDL, POC 63 mg/dL Triglycerides, POC 149 mg/dL LDL Cholesterol POC 78 mg/dL Chol/HDL Ratio, POC 2.7 Non-HDL Cholesterol, POC 107 mg/dL Cholesterol Total, POC 171 mg/dL Capillary blood 09/23/2020 1 1:55 AM CHIEF COUNSEL us David Rascon MD POINT OF CARE TEST ORDER LUIS Final Result * ECG 12 lead (09/23/2020) us David Rascon MD ECG ORDERABLES Final Re sult documented in this encounter Visit Diagnoses Diagnosis Coronary artery calcification seen on CT scan- Primary Dizziness Dizziness and giddiness Palpitations Hypertension associated with diabetes (HCC) Unspecified essential hypertension Statin myopathy Toxic myopathy Other chest pain Dyslipidemia associated with type 2 diabetes mellitus (HCC) Acquired hypothyroidism Unspecified hypothyroidism Lipid screening Screening for lipoid disorders documented in this encounter Discontinued Medications Medication Sig Discontinue Reason Start Date End Da te atenolol (TENORMIN) 50 mg tablet take 1 tablet by oral route every day Alternate therapy 02/19/2015 09/23/2020 cycloSPORINE (RESTASIS) 0.05 % ophthalmic emulsion Restasis 0.05 % eye drops in a dropperette Duplicate order 09/23/2020 levothyroxine sodium (TIROSINT) 125 mcg capsule Take 125 mcg by mouth daily. Duplicate order 09/23/2020 documented as of this encounter Historical Medications * This list may reflect changes made after this encounter. aspirin 81 mg enteric coated tabletIndication s:prevention of thrombosis Take 1 tablet (81 mg total) by mouth every morning nadoloL (CORGARD) 40 mg tabletIndication s:hypertension Take 1 tablet (40 mg total) by mouth every morning 08/17/2020 cycloSPORINE (RESTASIS) 0.05 % ophthalmic emulsion Restasis 0.05 % eye drops in a dropperette 0 added in this encounter Care Teams Machine Dyer Relationship Specialty Start Date End Date Karin Cordoba NP PCP - General Nurse Practitioner 08/20/17 08/29/23 documented as of this encounter
--- OUTSIDE RECORDS SUMMARY | 2024-09-25 22:00 | XMS_ITS | Encounter Summary ---
Author Organization [facility] Address [address] [place] [address] Care Team Providers Care Litigation Associate Name Role Phone Isreal Lin MD Primary Care Provider [phone] Reason for Visit * Cardiology (Routine) - Closed Specialty Diagnoses / Procedures Referred By Contac t Referred To Contact Diagnoses Coronary artery calcification seen on CT scan Hypertension associated with diabetes (HCC) Mixed diabetic hyperlipidemia associated with type 2 diabetes mellitus (HCC) H/O: CVA (cerebrovascular accident) Systolic murmur Procedures Transthoracic Echo (TTE) Complete W Doppler/CF David Rascon MD Phone: tel: fax: [facility] Referral ID Status Reason Start Date Expiration Date Visits Re quested Visits Authorized [id number] Closed 08/30/2023 09/28/2024 1 1 Encounter Details Date Type Department Care Team (Latest Contact Info) Description 10/26/2023 11:15 AM SPECIAL MACHINE OPERATOR Ancillary Procedure [facility] Cardiology [address] [place] [address] Coronary artery calcification seen on CT scan; Hypertension associated with diabetes (HCC); 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) (HCC); H/O: CVA (cerebrovascular accident); Systolic murmur Social History Tobacco Use Types Packs/Day Years Used Date Smoking Tobacco: Never Smokeless Tobacco: Never Alcohol Use Standard Drinks/Week Comments No 0 (1 standard drink = 0.6 oz pur e alcohol) Personal Safety Answer Date Recorded Getting School Help Needed Not on file 09/28 Comments Unknown Sex and Gender Information Value Date Recorded Sex Assigned at Not on file Legal Sex Female 3:37 AM SPECIAL MACHINE OPERATOR Gender Identity Female 01/28/2024 11:49 PM CDT Sexual Orientation Straight 08/12/2022 12 :04 PM CDT documented as of this encounter Last Filed Vital Signs Vital Sign Reading Time Taken Comments Blood Pressure 186/96 10/26/2023 12:23 PM SPECIAL MACHINE OPERATOR Pulse - - Temperature - - Respiratory Rate - - Oxygen Saturation - - Inhaled Oxygen Concentration - - Weight - - Height - - Body Mass Index - - documented in this encounter Plan of Treatment Not on file documented as of this encounter Procedures Procedure Name Priority Date/Time Associated Diagnosis Comments TRANSTHORACIC ECHO (TTE) COMPLETE W DOPPLER/CF WO CONTRAST Routine 10/26/2023 12:23 PM SPECIAL MACHINE OPERATOR Coronary artery calcification seen on CT scan Hypertension associated with diabetes (HCC) 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) (HCC) H/O: CVA (cerebrovascular accident) Systolic murmur documented in this encounter Results * TRANSTHORACIC ECHO (TTE) COMPLETE W DOPPLER/CF WO CONTRAST (10/26/2023 12:23 PM SPECIAL MACHINE OPERATOR) Anatomical Region Laterality Modality Ultrasound 10/26/2023 11:2 8 AM SPECIAL MACHINE OPERATOR Narrative 10/26/2023 1:25 PM SPECIAL MACHINE OPERATOR [facility] Cardiology [address] [address] [address], [place] [address] P:[phone] P:[phone] Echocardiographic Report Patient Name: MAGGIE ERAZO A : 1940 Study Date: 10/26/2023 11:28:35 AM Gender: F Tech: ISAAC Location: [facility] Provider: DAVID RASCON ?Height(Cm): 160 BSA: 1.74 Weight(Kg): 68.5 Heart Rate: 66 Quality: Good Order Provider: DAVID RASCON PROCEDURES: Echocardiographic Report: Transthoracic echocardiogram with complete 2D, M-Mode, and color Doppler examination. With Strain Analysis. INDICATIONS: CAD on CT, H/O CVA, Coronary Artery Disease, Diabetes, and Hypertension. Measurements: 2D/M Mode ?Doppler Measurement ?Value ?Normal Range ?Measurement ?Value ?Normal Range LVIDd 2D ? 3.64 ? [ 3.80 - 5.20 ] cm ?TONY Vmax ? 1.67 ? [ 2.00 - 4.00 ] cm2 LVIDs 2D ? 2.79 ? [ 2.20 - 3.50 ] cm ?AV Mean PG ? 5 ?mmHg LVPWd 2D ? 1.08 ? [ 0.60 - 0.90 ] cm ?AV Peak Luis ?1.58 ? [ 1.00 - 1.70 ] m/s IVSd 2D ?1.31 ? [ 0.60 - 0.90 ] cm ?AV Peak PG ? 10 ? mmHg LA Volume Index ?28 ? [ 16 - 34 ] cc/m2 ? AV VTI ? 35.84 ?cm LVOT Diam ?1.88 ?[ 1.70 - 2.10 ] cm LVOT Peak Luis ?0.95 ?[ 0.70 - 1.10 ] m/s LVOT VTI ? 23.23 ? cm TR Peak Luis ?2.87 ?[ 1.00 - 2.80 ] m/s TR Peak PG ? 33 ?mmHg Measurement ?Value ?Normal Range ?Measurement ?Value ?Normal Range 2D/M Mode ?Doppler - FINDINGS: Interpretation Site: Exam was interpreted at [facility]. Left Ventricle: Normal left ventricular systolic function. No focal wall motion abnormalities. Normal left ventricular size. Mild concentric left ventricular hypertrophy. Impaired diastolic relaxation Grade I. Ejection fraction is visually estimated at 65 %. Ejection fraction is measured at 60 %. Global Longitudinal Strain is -18 %. GLS is normal. Right Ventricle: Normal right ventricular size. Normal right ventricular systolic function. Left Atrium: There is mild enlargement of left atrium. Right Atrium: The right atrium is normal in size. Atrial Septum: Normal atrial septum. Mitral Valve: Moderate mitral annular calcification. Mild mitral valve regurgitation. There is no hemodynamically significant mitral stenosis by Doppler. Aortic Valve: Mild aortic stenosis. Valve area of 1.7 cm2. Aortic cusps appear mildly calcified. Trileaflet aortic valve. Trace aortic valve regurgitation. Tricuspid Valve: Normal appearance of the tricuspid valve. Mild pulmonary hypertension based on right ventricular systolic pressure. Estimated peak RVSP is 35-40 mmHg. Mild tricuspid regurgitation. Pulmonic Valve: Normal appearance of the pulmonic valve. No pulmonic stenosis. Trivial regurgitation in the pulmonic valve. Pericardium: Normal pericardium with no significant pericardial effusion. Aorta: Normal aortic root. IVC: Normal size and incomplete respiratory collapse consistent with elevated right atrial pressure (5-10 mmHg). CONCLUSIONS: Normal left ventricular systolic function. No [...] mmHg. Mild tricuspid regurgitation. Normal sinus rhythm. Electronically Signed By: Maxi Hutton MD 2023-10-26 13:24:53 SPECIAL MACHINE OPERATOR Procedure Note Maxi Hutton MD - 10/26/2023 [facility] Cardiology [address], [place] [address] [address], [place] [address] P:[phone] P:[phone] Echocardiographic Report Patient Name: MAGGIE ERAZO A : 1940 Study Date: 10/26/2023 11:28:35 AM Gender: F Tech: ISAAC Location: [facility] Provider: DAVID RASCON Height(Cm): 160 BSA: 1.74 Weight(Kg): 68.5 Heart Rate: 66 Quality: Good Order Provider: DAVID RASCON PROCEDURES: Echocardiographic Report: Transthoracic echocardiogram with complete 2D, M-Mode, and color Dopplerexamination. With Strain Analysis. INDICATIONS: CAD on CT, H/O CVA, Coronary Artery Disease, Diabetes, and Hypertension. Measurements: 2D/M ModeDoppler Measurement Value Normal Range MeasurementValue Normal Range LVIDd 2D 3.64 [ 3.80 - 5.20 ] cm TONY Vmax1.67 [ 2.00 - 4.00 ] cm2 LVIDs 2D 2.79 [ 2.20 - 3.50 ] cm AV Mean PG5 mmHg LVPWd 2D 1.08 [ 0.60 - 0.90 ] cm AV Peak Vel1.58 [ 1.00 - 1.70 ] m/s IVSd 2D 1.31 [ 0.60 - 0.90 ] cm AV Peak PG10 mmHg LA Volume Index 28 [ 16 - 34 ] cc/m2 AV VTI35.84 cm LVOT Diam 1.88 [ 1.70 - 2.10 ] cm LVOT Peak Luis 0.95 [ 0.70 - 1.10 ] m/s LVOT VTI 23.23 cm TR Peak Luis 2.87 [ 1.00 - 2.80 ] m/s TR Peak PG 33 mmHg Measurement Value Normal Range MeasurementValue Normal Range 2D/M ModeDoppler - FINDINGS: Interpretation Site: Exam was interpreted at [facility]. Left Ventricle: Normal left ventricular systolic function. No focal wall motionabnormalities. Normal left ventricular size. Mild concentric left ventricular hypertrophy.Impaired diastolic relaxation Grade I. Ejection fraction is visually estimated at 65 %.Ejection fraction is measured at 60 %. Global Longitudinal Strain is -18 %. GLS is normal. Right Ventricle: Normal right ventricular size. Normal right ventricular systolicfunction. Left Atrium: There is mild enlargement of left atrium. Right Atrium: The right atrium is normal in size. Atrial Septum: Normal atrial septum. Mitral Valve: Moderate mitral annular calcification. Mild mitral valve regurgitation.There is no hemodynamically significant mitral stenosis by Doppler. Aortic Valve: Mild aortic stenosis. Valve area of 1.7 cm2. Aortic cusps appear mildlycalcified. Trileaflet aortic valve. Trace aortic valve regurgitation. Tricuspid Valve: Normal appearance of the tricuspid valve. Mild pulmonary hypertensionbased on right ventricular systolic pressure. Estimated peak RVSP is 35-40 mmHg. Mildtricuspid regurgitation. Pulmonic Valve: Normal appearance of the pulmonic valve. No pulmonic stenosis. Trivialregurgitation in the pulmonic valve. Pericardium: Normal pericardium with no significant pericardial effusion. Aorta: Normal aortic root. IVC: Normal size and incomplete respiratory collapse consistent with elevatedright atrial pressure (5-10 mmHg). CONCLUSIONS: Normal left ventricular systolic function. No focal wall motionabnormalities. Normal left ventricular size. Mild concentric left ventricular hypertrophy.Impaired diastolic relaxation Grade I. Ejection fraction is visually estimated at 65 %.Ejection fraction is measured at 60 %. Global Longitudinal Strain is -18 %. GLS is normal. There is mild enlargement of left atrium. Moderate mitral annular calcification. Mild mitral valve regurgitation.There is no hemodynamically significant mitral stenosis by Doppler. Mild aortic stenosis. Valve area of 1.7 cm2. Aortic cusps appear mildlycalcified. Trileaflet aortic valve. Trace aortic valve regurgitation. Normal appearance of the tricuspid valve. Mild pulmonary hypertensionbased on right ventricular systolic pressure. Estimated peak RVSP is 35-40 mmHg. Mildtricuspid regurgitation. Normal sinus rhythm. 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
--- OUTSIDE RECORDS SUMMARY | 2024-09-25 22:00 | XMS_ITS | Encounter Summary ---
Author Organization [facility] Address [address] [place] [address] Phone Care Team Providers Care Container Filler Name Role Phone Karin Cordoba NP Primary Care Provider [phone] Reason for Referral * MRI/CAT/PET Scan (Routine) - Closed Specialty Diagnoses / Procedures Referred By Polo t Referred To Contact Radiology Diagnoses Chronic sinusitis, unspecified location Procedures CT Sinus Stealth WO Contrast Samir Khan MD [address] [place] [address] Phone: tel: fax: [facility] [address] [place] [address] Referral ID Status Reason Start Date Expiration Date Visits Re quested Visits Authorized [id number] Closed 08/16/2023 09/14/2024 1 1 TH INFORMATION ASSISTANT Reason for Visit * Reason Comments Sinusitis R16 * Consultation (Routine) - Closed Specialty Diagnoses / Procedures Referred By Contac t Referred To Contact Otolaryngology Diagnoses Acute sinusitis, recurrence not specified, unspecified location Chronic sinusitis, unspecified location Rohan Bradshaw MD [address] [place] [address] Phone: tel: fax: [facility]All [facility]) Referral ID Status Reason Start Date Expiration Date V isits Requested Visits Authorized [id number] Closed Specialty Services Required 06/23/2023 07/22/2024 12 12 Encounter Details Date Type Department Care Team (Late st Contact Info) Description 08/16/2023 1:40 PM HEALTH INFORMATION ASSISTANT Office Visit [facility] ([facility]) - [facility] ENT [address] [place] [facility] 11th [place] [address] [place] [address] Samir Khan MD [address] [place] [address] Chronic sinusitis, unspecified location (Primary Dx); Acute sinusitis, recurrence not specified, unspecified location Social History Tobacco Use Types Packs/Day Years Used Date Smoking Tobacco: Never Smokeless Tobacco: Never Alcohol Use Standard Drinks/Week Comments No 0 (1 standard drink = 0.6 oz pur e alcohol) Comments Unknown Sex and Gender Information Value Date Recorded Sex Assigned at Not on file Legal Sex Female 3:37 AM HEALTH INFORMATION ASSISTANT Gender Identity Female 01/28/2024 11:49 PM CDT [...] twice daily. 120 mL 6 08/16/2023 4 documented in this encounter Progress Notes * Samir Khan MD - 08/16/2023 1:40 PM CST Images from the original note were not included. HISTORY OF PRESENT ILLNESS Ms. Erazo comes to clinic today for evaluation of ongoing, Severe:nasal drainage That has been present for many year(s), and has associated symptoms including: headache The patient has been prescribed antibiotic multiple times with no relief of symptoms. Nothing make the symptoms worse. Nothingmake the symptoms better. The symptoms occur when - all the time. She showed me a sinus CT report from 2016 that showed georges sinusitis. 05/13/[address] scan that showed sphenoid sinusitis bilaterally and right maxillary sinusitis.. Past Medical/Surgical History Past Medical History: Diagnosis Date Allergic rhinitis Anemia 2021 Cirrhosis (HCC) 2014 Deep vein thrombosis (CMS/HCC) (HCC) 2014 Dental disease 1999 Diabetes mellitus (HCC) 2002 Dizziness 2002 Headache 2002 Hypertension Liver disease 2012 Nosebleed 2009 Sinusitis 2002 Tinnitus 2002 Past Surgical History: Procedure Laterality Date APPENDECTOMY 1961 BRONCHOSCOPY 2021 CHOLECYSTECTOMY 08/06/1962 COLONOSCOPY 2021 SINUS SURGERY 10/08/2021 Past Family/Social History Family History Problem Relation Age of Onset Alzheimer's disease Father Alzheimer's disease; Kidney failure Father 91 Kidney failure; Cause of : Kidney failure Stroke Mother Stroke; Hypertension Mother Hypertension; Social History Tobacco Use Smoking status: Never Smokeless tobacco: Never Substance and Sexual Activity Drug use: Never Sexual activity: Not Currently Partners: Male Alcohol Use: Not on file Medications/Allergies/Immunizations Current Outpatient Medications Medication Sig Dispense Refill ferrous sulfate 325 mg (65 mg of elemental iron) tablet Take 1 tablet (325 mg total) by mouth everyother day artificial tears,hypromellose, 0.3 % drops Administer into affected eye(s). ascorbic acid (ascorbic acid with darlene hips) 500 mg tablet take 1 by Oral route once 0 0 aspirin 81 mg enteric coated tablet Take 81 mg by mouth daily budesonide (PULMICORT) 0.5 mg/2 mL nebulizer solution Mix 1 capsule/ampule in 250 mL of saline irrigations (Zimride Sinus Rinse Bottle) and irrigate each nostril with half of the bottle twice daily. 120 mL 6 calcium carbonate (CALCIUM 600) 1,500 mg (600 mg of elemental calcium) tablet take 1 by Oral route every day 0 0 cycloSPORINE (RESTASIS) 0.05 % ophthalmic emulsion Administer 1 drop into both eyes 2 (two) times aday. levothyroxine (SYNTHROID) 100 mcg tablet 100 mcg losartan (COZAAR) 25 mg tablet take 1 tablet by oral route every day bedtime 0 0 losartan (COZAAR) 50 mg tablet take 1 tablet by oral route every day 0 0 metFORMIN (GLUCOPHAGE) 500 mg tablet take 1 tablet by oral route 2 times every day with morning andevening meals 0 0 multivitamin tablet tablet take 1 tablet by oral route every day with food 0 0 nadoloL (CORGARD) 40 mg tablet Take 40 mg by mouth daily omeprazole (PriLOSEC) 20 mg capsule Take 20 mg by mouth daily pediatric hjmnkhjl-ycpv-ivl tablet,chewable Take by mouth daily No current facility-administered medications for this visit. Allergies: Adhesive tape-silicones, Ezetimibe, Simvastatin, Codeine, Loratadine- pseudoephedrine, and Bdlhooa-wvy-mtk reductase inhibitors, Immunizations: There is no immunization history on file for this patient. Review of Systems The 12 point review of systems filled out by the patient on their history form was reviewed today, and will be scanned into the encounter. Physical Exam Vital Signs: There were no vitals taken for this visit. PHYSICAL EXAMINATION: GENERAL: Well-developed, well-nourished. Voice quality is normal. NEURO/PSYCH: Cranial nerves II- XII are grossly normal. Affect is normal. Alert and oriented. Extraocular muscles are intact. HEAD/FACE: Normocephalic; atraumatic. No facial skin lesions. Facial strength is 5/5 and the face is symmetric. EARS : External ears have no skin lesions. Hearing is grossly intact. Right - EAC patent. TM intact. Middle ear aerated. Left - EAC patent. TM intact. Middle ear aerated. NOSE: External nose has no skin lesions. Anterior rhinoscopy is limited by obstructive anatomy, please see endoscopy below. ORAL CAVITY/ OROPHARYNX: Normal oral vestibule. Oral mucosa is moist without lesions. Tongue and floor of mouth are without lesions or masses. Palate has no lesions and elevates symmetrically. Tonsils are 1. Oropharynx is clear. NECK: Trachea is midline. Thyroid is normal in size with no apparent nodules. LYMPHATIC: No cervical lymphadenopathy. MUSCULOSKELATAL: Ambulates without difficulty. Neck full range [...] areas were examined for abnormalities orcollapse. The inferior and middle turbinates were evaluated. The middle and superior meatuses, the sphenoethmoid recesses, and the nasopharynx bilaterally were inspected for mucopurulence, polyps, mucosal lesions, and masses. Findings: No purulence or polyps seen bilaterally RESULTS: none ASSESSMENT & PLAN Problem List Items Addressed This Visit Chronic sinusitis - Primary Relevant Orders CT Sinus Stealth WO Contrast Other Visit Diagnoses Acute sinusitis, recurrence not specified, unspecified location We discussed that given the chronicity of this and that she recently learned she has perihepatic fluid that is being investigated we could try steroid nasal irrigations for a time and repeat the scanto see if that improves her condition. She was in agreement Samir Khan M.D., M.A., F.A.C.S. Artificial Insemination Technician and Certified Addiction Counselor Rhinology and Anterior Skull Base Surgery [facility] [address] [place] [address] [place] [phone] - Office - Appointments - Clinical coordinator (Sheron Uribe LPN) - Clinical fax - Academic office fax EMAIL: [email or web address] TH INFORMATION ASSISTANT documented in this encounter Plan of Treatment Not on file documented as of this encounter Results * CT Sinus Stealth WO Contrast (10/18/2023 1:48 PM HEALTH INFORMATION ASSISTANT) Anatomical Region Laterality Modality Head N/A Computed Tomogra phy 10/18/2023 2:35 PM HEALTH INFORMATION ASSISTANT Impressions 10/18/2023 2:41 PM HEALTH INFORMATION ASSISTANT 1. ??Redemonstrated postoperative change consistent with left uncinectomy. ??There is persistent moderate mucosal thickening throughout the left maxillary sinus, within the left ethmoid air cells, and mild mucosal thickening within the left frontal sinus. Diffuse hyperostosis of the sinus hernandez is in keeping with chronic sinusitis. 2. ??Interval increase in mucosal thickening throughout the right ethmoid air cells, now severe. Dictated by: Brianna Hernandez MD The radiology attending physician has personally reviewed this study, and had reviewed and/or edited this written report and agrees with it. Electronically signed by: Lizzy Phillip M.D. Narrative 10/18/2023 2:41 PM HEALTH INFORMATION ASSISTANT EXAMINATION: CT of the paranasal sinuses without contrast HISTORY: Chronic sinusitis TECHNIQUE: CT of the paranasal sinuses was performed using the sinus protocol without contrast. COMPARISON: Outside CT sinus 05/13/2023 FINDINGS: Review of the topogram demonstrates no abnormalities. Mild mucosal thickening within the left frontal sinus. ??The right frontal sinus is normal. ??There is diffuse mucosal thickening throughout the ethmoid air cells bilaterally, greater and severe on the right, moderate on the left. ??Mucosal thickening throughout the right ethmoid air cells is significantly increased on the right compared to prior. Postoperative changes consistent with left uncinectomy with moderate mucosal thickening within the left maxillary sinus. ??There is minimal mucosal thickening within the right maxillary sinus. ??The right ostiomeatal unit is open. ??The sphenoid sinuses are completely opacified. The nasal septum is at midline. Diffuse hyperostosis of the sinus hernandez, particularly on the left is consistent with chronic sinusitis. Bilateral lens replacements. Limited view of the frontal lobes is normal. Procedure Note VoLizzy MD - 10/18/2023 EXAMINATION: CT of the paranasal sinuses without contrast HISTORY: Chronic sinusitis TECHNIQUE: CT of the paranasal sinuses was performed using the sinus protocol without contrast. COMPARISON: Outside CT sinus 05/13/2023 FINDINGS: Review of the topogram demonstrates no abnormalities. Mild mucosal thickening within the left frontal sinus. The right frontal sinus is normal. There is diffuse mucosal thickening throughout the ethmoid air cells bilaterally, greater and severe on the right, moderate on the left. Mucosal thickening throughout the right ethmoid air cells is significantly increased on the right compared to prior. Postoperative changes consistent with left uncinectomy with moderate mucosal thickening within the left maxillary sinus. There is minimal mucosal thickening within the right maxillary sinus. The right ostiomeatal unit is open. The sphenoid sinuses are completely opacified. The nasal septum is at midline. Diffuse hyperostosis of the sinus hernandez, particularly on the left is consistent with chronic sinusitis. Bilateral lens replacements. Limited view of the frontal lobes is normal. IMPRESSION: 1. Redemonstrated postoperative change consistent with left uncinectomy. There is persistent moderate mucosal thickening throughout the left maxillary sinus, within the left ethmoid air cells, and mild mucosal thickening within the left frontal sinus. Diffuse hyperostosis of the sinus hernandez is in keeping with chronic sinusitis. 2. Interval increase in mucosal thickening throughout the right ethmoid air cells, now severe. Dictated by: Brianna Hernandez MD The radiology attending physician has personally reviewed this study, and had reviewed and/or edited this written report and agrees with it. Electronically signed by: Lizzy Phillip M.D. Samir Khan MD IMG CT PROCEDURES Final Result documented in this encounter Visit Diagnoses Diagnosis Chronic sinusitis, unspecified location- Primary Acute sinusitis, recurrence not specified, unspecified location Chronic sinusitis, unspecified location documented in this encounter Discontinued Medications Medication Sig Discontinue Reason Start Date End Da te montelukast (SINGULAIR) 10 mg tablet Take 10 mg by mouth nightly. 08/16/2023 documented as of this encounter Historical Medications * This list may reflect changes made after this encounter. ferrous sulfate 325 mg (65 mg of elemental iron) tabletIndication s:Iron Deficiency Anemia Take 1 tablet (65 mg of elemental iron total) by mouth every other day In AM 07/26/2023 pediatric bxaqphak-fhbk-qg n tablet,chewable Take by mouth daily 4 added in this encounter Orders Outpatient Referral Count Last Ordered Date Fir st Ordered Date AMB REFERRAL TO ENT 1 08/16/2023 documented in this encounter Care Teams Container Filler Relationship Specialty Start Date End Date Karin Cordoba NP PCP - General Nurse Practitioner 08/20/17 08/29/23 documented as of this encounter
--- OUTSIDE RECORDS SUMMARY | 2024-09-25 22:00 | XMS_ITS | Encounter Summary ---
Author Organization [facility] Address [address] [place] [address] Care Team Providers Care Cap Machine Operator Name Role Phone Karin Cordoba NP Primary Care Provider [phone] Reason for Visit * Reason Comments Follow-up 6 mo f/u Coronary artery calcification Encounter Details Date Type Department Care Team (Latest Contact Info) Description 08/06/2021 9:45 AM CDT Office Visit [facility] Cardiology [address] [place] [address] David Rascon MD [id number] [place] [address] Coronary artery calcification seen on CT scan (Primary Dx); Other chest pain; Hypertension associated with diabetes (HCC); Statin myopathy; Hyperlipidemia due to type 2 diabetes mellitus (CMS/HCC) (HCC); Acquired hypothyroidism Social History Tobacco Use Types Packs/Day Years Used Date Smoking Tobacco: Never Smokeless Tobacco: Never Alcohol Use Standard Drinks/Week Comments No 0 (1 standard drink = 0.6 oz pur e alcohol) Comments Unknown Sex and Gender Information Value Date Recorded Sex Assigned at Not on file Legal Sex Female 3:37 AM 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 AND 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 Gender Identity Female 01/28/2024 11:49 PM CDT Sexual Orientation Straight 08/12/2022 12 :04 PM CDT documented as of this encounter Last Filed Vital Signs Vital Sign Reading Time Taken Comments Blood Pressure 126/66 08/06/2021 9:55 AM CDT Pulse 70 08/06/2021 9:55 AM CDT Temperature - - Respiratory Rate - - Oxygen Saturation 99% 08/06/2021 9:55 AM CDT Inhaled Oxygen Concentration - - Weight 70.2 kg (154 lb 11.2 oz) 08/06/2021 9:55 AM CDT Height 160 cm (5' 3 ) 08/06/2021 9:55 AM CDT Body Mass Index 27.4 08/06/2021 9:55 AM CDT documented in this encounter Progress Notes * David Rascon MD - 08/06/2021 9:45 AM CDT [facility] DATE OF VISIT: 08/06/2021 CHIEF COMPLAINT Chief Complaint Patient presents with ??? Follow-up 6 mo f/u ??? Coronary artery calcification HPI Maggie Erazo is a 80 y.o. female with a PMHx of diabetes [...] often once every couple of weeks maybe anashe is not paying attention not too bothersome [...] few seconds then able to go on. MEDICAL HISTORY Past Medical History: Diagnosis Date [...] tablet cycloSPORINE (RESTASIS) 0.05 % ophthalmic emulsion Euthyrox 100 mcg tablet losartan (COZAAR) 25 mg tablet losartan (COZAAR) 50 mg tablet metFORMIN (GLUCOPHAGE) 500 mg tablet montelukast (SINGULAIR) 10 mg tablet multivitamin tablet tablet nadoloL (CORGARD) 40 mg tablet omeprazole (PriLOSEC) 20 mg capsule ALLERGIES Allergies Allergen Reactions ??? Adhesive Tape-Silicones Hives ??? Ezetimibe Muscle pain ??? Simvastatin Muscle pain ??? Codeine Other (See comments) Acute abd. pain Acute abd. pain, ??? Kdisdwz-Hoy-Lsb Reductase Inhibitors Other (See comments) REVIEW OF SYSTEMS Review of Systems Constitutional: Negative for decreased appetite, diaphoresis, fever, malaise/fatigue, night sweats,weight gain and weight loss. HENT: Negative for hearing loss and nosebleeds. [...] for environmental allergies. PHYSICAL EXAM Vitals BP 126/66 (BP Location: Right arm, Patient Position: Sitting) Pulse 70 Ht 160 cm (5' 3 ) Wt 70.2 kg (154 lb 11.2 oz) SpO2 99% BMI 27.40 kg/m?? Weight: 70.2 kg (154 lb 11.2 oz) Height: 160 cm (5' 3 ) Body mass index is 27.4 kg/m??. Physical Exam Constitutional: General: She is not in acute distress. Appearance: She is well-developed. She is not diaphoretic. [...] pulses and intact distal pulses. Heart sounds: Normal heart sounds, S1 normal and S2 normal. Heart sounds not distant. No murmur heard. No friction rub. No gallop. No S3 [...] Normal range of motion and neck supple. Lymphadenopathy: Cervical: No cervical adenopathy. Skin: General: Skin is warm and dry. Coloration: Skin is not pale. Findings: No ecchymosis, erythema, petechiae or rash. Nails: There is no clubbing. Neurological: Mental Status: She is alert and oriented to person, place, and time. Cranial Nerves: No cranial nerve deficit. Motor: No abnormal muscle tone. Coordination: Coordination normal. Psychiatric: Speech: Speech normal. Behavior: Behavior normal. Behavior is cooperative. Judgment: Judgment normal. LABS AND OTHER DIAGNOSTIC TESTS No visits with results within 3 Month(s) from this visit. Latest known visit with results is: Office Visit on 09/23/2020 Component Date Value Ref Range Status ??? Cholesterol, POC 09/23/2020 171 mg/dL Final ??? HDL, POC 09/23/2020 63 mg/dL Final ??? Triglycerides, POC 09/23/2020 149 mg/dL Final ??? LDL, Direct, POC 09/23/2020 78 mg/dL Final ??? Chol/HDL Ratio, POC 09/23/2020 2.7 Final ??? Non-HDL Cholesterol, POC 09/23/2020 107 mg/dL Final ??? Cholesterol Total, POC 09/23/2020 171 mg/dL Final Results for orders placed or performed in visit on 09/23/20 POCT lipid panel Result Value Ref Range Cholesterol, POC 171 mg/dL HDL, POC 63 mg/dL Triglycerides, POC 149 mg/dL LDL, Direct, POC 78 mg/dL Chol/HDL Ratio, POC 2.7 Non-HDL Cholesterol, POC 107 mg/dL Cholesterol Total, POC 171 mg/dL Personally reviewed EKG and bloodwork/lipids. ASSESSMENT Diagnoses and all orders for this visit: Coronary artery calcification seen on CT scan (Primary) Other chest pain Hypertension associated with diabetes (HCC) Statin myopathy Hyperlipidemia due to type 2 diabetes mellitus (CMS/HCC) (HCC) Acquired hypothyroidism PLAN/RECOMMENDATIONS 1. No sxs suggestive of angina or claudication. Atypical CP, isolated likely noncardiac. Aggressiveatherosclerotic risk modification counseling performed. Continue current medical therapy. Notify office immediately with anginal symptoms. -continue ASA 81mg daily. Monitor for bleeding. -Risk vs benefit balance in favor of ASA . Precautions to take with full glass of water, food and remain upright for at least 60 minutes prior to lying down. -Remains on PPI. -ISchemic eval if significant CP recurrence. Notify office 2. BP controlled improved on repeat check goal <130/80mmHg. Monitor BP on routine basis. Call with readings. Continue consistent cardiovascular exercise, weight loss, medication compliance, and low-sodium diet. -Losartan 75mg daily (50mg in AM and 25mg PM), Nadolol 40mg daily 3. DM managed by PCP 4. Intolerant to statins and Zetia, unfortunately. Lipids personally reviewed from 09/23/20 LDL 78,fair control goal LDL<70. Continue lifestyle and dietary modifications as counseled. 5. Lifestyle modification counseling performed. Weight loss, exercise, reduction in caloric intake. 6. Following Overlay Operator at [facility], Dr. [place]. -Monitor for recurrent palps or CP and notify office. Advised 7-14 day monitor and repeat 2D echocardiogram. Close observation for now as patient is feeling well. Over 50% of this visit counseling coronary calcifcation, HTN, lipids, medications, lifestyle modification. Follow up in the office in 6 months or sooner as needed. Thank you for allowing me the privilege of participating in the care this very pleasant patient. Please do not hesitate to contact me with any additional questions or concerns. Nicole Rascon MD, FACC documented in this encounter Plan of Treatment Not on file documented as of this encounter Visit Diagnoses Diagnosis Coronary artery calcification seen on CT scan- Primary Other chest pain Hypertension associated with diabetes (HCC) Unspecified essential hypertension Statin myopathy Toxic myopathy Hyperlipidemia due to type 2 diabetes mellitus (HCC) Acquired hypothyroidism Unspecified hypothyroidism documented in this encounter Historical Medications * This list may reflect changes made after this encounter. levothyroxine (SYNTHROID) 100 mcg tabletIndication s:hypothyroidism Take 1 tablet (100 mcg total) by mouth hydroelectric operator before breakfast 07/31/2021 added in this encounter Care Teams Cap Machine Operator Relationship Specialty Start Date End Date Karin Cordoba NP PCP - General Nurse Practitioner 08/20/17 08/29/23 documented as of this encounter
--- OUTSIDE RECORDS SUMMARY | 2024-09-25 22:00 | XMS_ITS | Encounter Summary ---
Author Organization [facility] Address [address] [place] [address] Care Team Providers Care Athletic Shoe Designer Name Role Phone Karin Cordoba NP Primary Care Provider [phone] Reason for Visit * Reason Comments Follow-up 6 mo f/u Coronary artery calcification Encounter Details Date Type Department Care Team (Latest Contact Info) Description 02/09/2022 9:00 AM CDT Office Visit [facility] Cardiology [address] [place] [address] David Rascon MD [address] [facility] [facility] [address] [place] [address] Coronary artery calcification seen on CT scan (Primary Dx); Palpitations; Hypertension associated with diabetes (HCC); 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) (HCC); Statin myopathy; Cirrhosis of liver without ascites, unspecified hepatic cirrhosis type (HCC); Lipid screening Social History Tobacco Use Types Packs/Day Years Used Date Smoking Tobacco: Never Smokeless Tobacco: Never Alcohol Use Standard Drinks/Week Comments No 0 (1 standard drink = 0.6 oz pur e alcohol) Comments Unknown Sex and Gender Information Value Date Recorded Sex Assigned at Not on file Legal Sex Female 3:37 AM STATIONS SUPERINTENDENT Gender Identity Female 01/28/2024 11:49 PM CDT Sexual Orientation Straight 08/12/2022 12 :04 PM CDT documented as of this encounter Last Filed Vital Signs Vital Sign Reading Time Taken Comments Blood Pressure 120/66 02/09/2022 9:08 AM CDT Pulse 67 02/09/2022 9:08 AM CDT Temperature - - Respiratory Rate - - Oxygen Saturation 92% 02/09/2022 9:08 AM CDT Inhaled Oxygen Concentration - - Weight 70.4 kg (155 lb 3.2 oz) 02/09/2022 9:08 A M CDT Height 160 cm (5' 3 ) 02/09/2022 9:08 AM CDT Body Mass Index 27.49 02/09/2022 9:08 AM CDT documented in this encounter Progress Notes * David Rascon MD - 02/09/2022 9:00 AM CDT [facility] DATE OF VISIT: 02/09/2022 CHIEF COMPLAINT Chief Complaint Patient presents with ??? Follow-up 6 mo f/u ??? Coronary artery calcification HPI Maggie Erazo is a 81 y.o. female with a PMHx of diabetes [...] No other recurrence like she did in . She discussed with PCP. No assoc. August [...] issues with ASA 81mg daily, some bruising. MEDICAL HISTORY Past Medical History: Diagnosis Date ??? Hypertension Social History Tobacco Use ??? Smoking status: Never Smoker ??? Smokeless tobacco: Never Used Substance Use Topics ??? Alcohol use: No Family History Problem Relation [...] cycloSPORINE (RESTASIS) 0.05 % ophthalmic emulsion levothyroxine (SYNTHROID) 75 mcg tablet losartan (COZAAR) 25 mg tablet losartan (COZAAR) 50 mg tablet metFORMIN (GLUCOPHAGE) 500 mg tablet montelukast (SINGULAIR) 10 mg tablet multivitamin tablet tablet nadoloL (CORGARD) 40 mg tablet omeprazole (PriLOSEC) 20 mg capsule ALLERGIES Allergies Allergen Reactions ??? Adhesive Tape-Silicones Hives ??? Ezetimibe Muscle pain ??? Simvastatin Muscle pain ??? Codeine Other (See comments) Acute abd. pain Acute abd. pain, ??? Wbspzjv-Qmt-Pdb Reductase Inhibitors Other (See comments) REVIEW OF SYSTEMS Review of Systems Constitutional: Positive for weight gain. Negative for decreased appetite, diaphoresis, fever, malaise/fatigue, night sweats and weight loss. HENT: Negative for hearing loss and nosebleeds. Eyes: Negative for blurred vision and pain. Cardiovascular: Positive for chest pain and palpitations. Negative for claudication, dyspnea on exertion, irregular heartbeat, leg swelling, near- syncope, orthopnea and syncope. Respiratory: Negative for cough, hemoptysis, [...] for environmental allergies. PHYSICAL EXAM Vitals BP 120/66 (BP Location: Left arm, Patient Position: Sitting) Pulse 67 Ht 160 cm (5' 3 ) Wt 70.4 kg (155 lb 3.2 oz) SpO2 92% BMI 27.49 kg/m?? Weight: 70.4 kg (155 lb 3.2 oz) Height: 160 cm (5' 3 ) Body mass index is 27.49 kg/m??. Physical Exam Constitutional: General: She is [...] Judgment normal. LABS AND OTHER DIAGNOSTIC TESTS Office Visit on 02/09/2022 Component Date Value Ref Range Status ??? Cholesterol, POC 02/09/2022 175 mg/dL Final ??? HDL, POC 02/09/2022 54 mg/dL Final ??? Triglycerides, POC 02/09/2022 115 mg/dL Final ??? LDL, Direct, POC 02/09/2022 98 mg/dL Final ??? Chol/HDL Ratio, POC 02/09/2022 3.2 Final ??? Non-HDL Cholesterol, POC 02/09/2022 121 mg/dL Final ??? Cholesterol Total, POC 02/09/2022 175 mg/dL Final Results for orders placed or performed in visit on 02/09/22 POCT lipid panel Result Value Ref Range Cholesterol, POC 175 mg/dL HDL, POC 54 mg/dL Triglycerides, POC 115 mg/dL LDL, Direct, POC 98 mg/dL Chol/HDL Ratio, POC 3.2 Non-HDL Cholesterol, POC 121 mg/dL Cholesterol Total, POC 175 mg/dL Personally reviewed EKG and bloodwork/lipids. ASSESSMENT Diagnoses and all orders for this visit: Coronary artery calcification seen on CT scan (Primary) - ECG 12 lead Palpitations - ECG 12 lead Hypertension associated with diabetes (HCC) 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) (HCC) Statin myopathy Cirrhosis of liver without ascites, unspecified hepatic cirrhosis type (HCC) Lipid screening - POCT lipid panel PLAN/RECOMMENDATIONS 1. No sxs suggestive of angina or claudication. H/o atypical CP, isolated likely noncardiac. Aggressive atherosclerotic risk modification counseling performed. Continue current medical therapy. Notify office immediately with anginal symptoms. Monitor for bleeding. -Cont ASA 81mg daily. Precautions to take with full glass of water, food and remain upright for at least 60 minutes prior to lying down. -Remains on PPI. -Ischemic eval if significant CP recurrence. Doing well at present thus far. 2. BP controlled improved on repeat check goal <130/80mmHg. Monitor BP on routine basis. Call with readings. Continue consistent cardiovascular exercise, weight loss, medication compliance, and low-sodium diet. -Losartan 75mg daily (50mg in AM and 25mg PM), Nadolol 40mg daily 3. DM managed by PCP 4. Intolerant to statins and Zetia, unfortunately. Lipids personally reviewed from 02/09/22 LDL 98, not ideally control goal LDL<70. Continue lifestyle and dietary modifications as counseled. -Discussed PCSK9 inhibitor therapy options, she was not interested in giving herself injections. 5. Lifestyle modification counseling performed. Weight loss, exercise, reduction in caloric intake. 6. Following [employer] at [facility], Dr. Vanegas. -12 lead ECG today personally reviewed sinus rhythm baseline artifact nonspecific ST abnormality 68beats per minute [place] interval 160 milliseconds QRS 78 milliseconds QT corrected 444 milliseconds, baseline artifact, nonspecific ST abnormality, borderline ECG. -Monitor for recurrent palps or CP and notify office for recommendations as appropriate. Close observation for now as patient is [...] additional questions or concerns. Nicole Rascon MD, [facility] documented in this encounter Plan of Treatment Not on file documented as of this encounter Procedures Procedure Name Priority Date/Time Associated Diagnosis Comments POCT LIPID PANEL Routine 02/09/2022 9:14 AM CDT Lipid screening ECG 12-LEAD Routine 02/09/2022 Coronary artery calcification seen on CT scan Palpitations documented in this encounter Results * POCT lipid panel (02/09/2022 9:14 AM CDT) Cholesterol, POC 175 mg/dL Comment:GLU = 153 HDL, POC 54 mg/dL Triglycerides, POC 115 mg/dL LDL Cholesterol POC 98 mg/dL Chol/HDL Ratio, POC 3.2 Non-HDL Cholesterol, POC 121 mg/dL Cholesterol Total, POC 175 mg/dL Capillary blood 02/09/2022 9 :14 AM CDT us David Germanon [place] MD POINT OF CARE TEST ORDER LUIS Final Result * ECG 12 lead (02/09/2022) us David Rascon MD ECG ORDERABLES Final Re sult documented in this encounter Visit Diagnoses Diagnosis Coronary artery calcification seen on CT scan- Primary Palpitations Hypertension associated with diabetes (HCC) Unspecified essential hypertension Mixed diabetic hyperlipidemia associated with type 2 diabetes mellitus (HCC) Statin myopathy Toxic myopathy Cirrhosis of liver without ascites, unspecified hepatic cirrhosis type (HCC) Lipid screening Screening for lipoid disorders documented in this encounter Care Teams Athletic Shoe Designer Relationship Specialty Start Date End Date Karin Cordoba NP PCP - General Nurse Practitioner 08/20/17 08/29/23 documented as of this encounter
--- OUTSIDE RECORDS SUMMARY | 2024-09-25 22:00 | XMS_ITS | Encounter Summary ---
Author Organization [facility] Address [address] [place] [address] Care Team Providers Care Senior Research Consultant Name Role Phone Karin Cordoba NP Primary Care Provider [phone] Reason for Visit * Reason Comments Follow-up yearly follow up on HTN, dyslipidemia, palps Encounter Details Date Type Department Care Team (Latest Contact Info) Description 09/11/2019 10:30 AM OCCUPATIONAL THERAPY CO DIRECTOR Office Visit [facility] [address] [place] [address] David Rascon MD [address] [place] [address] Coronary artery calcification seen on CT scan (Primary Dx); Dyslipidemia associated with type 2 diabetes mellitus (CMS/HCC); Benign hypertension; Palpitations; Statin intolerance; Steatosis of liver; Drug-induced gastric ulcer; Cirrhosis of liver without ascites, unspecified hepatic cirrhosis type (CMS/HCC); Other chest pain Social History Tobacco Use Types Packs/Day Years Used Date Smoking Tobacco: Never Smokeless Tobacco: Never Alcohol Use Standard Drinks/Week Comments No 0 (1 standard drink = 0.6 oz pur e alcohol) Comments Unknown Sex and Gender Information Value Date Recorded Sex Assigned at Not on file Legal Sex Female 3:37 AM OCCUPATIONAL THERAPY CO DIRECTOR Gender Identity Female 01/28/2024 11:49 PM CDT Sexual Orientation Straight 08/12/2022 12 :04 PM CDT documented as of this encounter Last Filed Vital Signs Vital Sign Reading Time Taken Comments Blood Pressure 128/78 09/11/2019 10:36 AM OCCUPATIONAL THERAPY CO DIRECTOR Pulse 71 09/11/2019 10:36 AM OCCUPATIONAL THERAPY CO DIRECTOR Temperature - - Respiratory Rate - - Oxygen Saturation 98% 09/11/2019 10:36 AM OCCUPATIONAL THERAPY CO DIRECTOR Inhaled Oxygen Concentration - - Weight 69.4 kg (153 lb) 09/11/2019 10:36 AM OCCUPATIONAL THERAPY CO DIRECTOR Height 160 cm (5' 3 ) 09/11/2019 10:36 AM OCCUPATIONAL THERAPY CO DIRECTOR Body Mass Index 27.1 09/11/2019 10:36 AM OCCUPATIONAL THERAPY CO DIRECTOR documented in this encounter Progress Notes * David Rascon MD - 09/11/2019 10:30 AM CST [facility] DATE OF VISIT: 09/11/2019 CHIEF COMPLAINT Chief Complaint Patient presents with ??? Follow-up yearly follow up on HTN, dyslipidemia, palps HPI Maggie Erazo is a 78 y.o. female with a PMHx of diabetes [...] scope8 weeks later ulcer gone. On Omeprazole. MEDICAL HISTORY Past Medical History: Diagnosis Date [...] acid with darlene hips) 500 mg tablet atenolol (TENORMIN) 50 mg tablet calcium carbonate (CALCIUM 600) 1,500 mg (600 mg of elemental calcium) tablet cycloSPORINE (RESTASIS) 0.05 % ophthalmic emulsion fluticasone (FLONASE) 50 mcg/actuation nasal spray levothyroxine sodium (TIROSINT) 125 mcg capsule losartan (COZAAR) 25 mg tablet losartan (COZAAR) 50 mg tablet metFORMIN (GLUCOPHAGE) 500 mg tablet montelukast (SINGULAIR) 10 mg tablet multivitamin tablet tablet omeprazole (PriLOSEC) 20 mg capsule polycarbophil (FIBERCON) 625 mg tablet aspirin (ECOTRIN LOW STRENGTH) 81 mg tablet calcium carbonate-vitamin D3 1,500 mg (600mg elemental) -800 unit per tablet omega-3 fatty acids 1,000 mg capsule ALLERGIES Allergies Allergen Reactions ??? Adhesive Tape-Silicones Hives ??? Ezetimibe Muscle pain ??? Simvastatin Muscle pain ??? Codeine Other (See comments) Acute abd. pain Acute abd. pain, ??? Xqaxuar-Ekx-Iaw Reductase Inhibitors Other (See comments) REVIEW OF [...] for environmental allergies. PHYSICAL EXAM Vitals BP 128/78 (BP Location: Right arm, Patient Position: Sitting) Pulse 71 Ht 160 cm (5' 3 ) Wt 69.4 kg (153 lb) SpO2 98% BMI 27.10 kg/m?? Weight: 69.4 kg (153 lb) Height: 160 cm (5' 3 ) Body mass index is 27.1 kg/m??. Physical Exam Constitutional: She is oriented [...] distension and no mass. There is no tenderness. There is no rebound and no [...] visit with results is: Office Visit on 08/29/2018 Component Date Value Ref Range Status ??? Cholesterol, POC 08/29/2018 176 mg/dL Final ??? HDL, POC 08/29/2018 67 mg/dL Final ??? Triglycerides, POC 08/29/2018 179 mg/dL Final ??? LDL, Direct, POC 08/29/2018 73 mg/dL Final ??? Chol/HDL Ratio, POC 08/29/2018 2.6 Final ??? Non-HDL Cholesterol, POC 08/29/2018 109 mg/dL Final ??? Cholesterol Total, POC 08/29/2018 176 mg/dL Final Results for orders placed or performed in visit on 08/29/18 POCT lipid panel Result Value Ref Range Cholesterol, POC 176 mg/dL HDL, POC 67 mg/dL Triglycerides, POC 179 mg/dL LDL, Direct, POC 73 mg/dL Chol/HDL Ratio, POC 2.6 Non-HDL Cholesterol, POC 109 mg/dL Cholesterol Total, POC 176 mg/dL Personally reviewed EKG and bloodwork/lipids. ASSESSMENT Diagnoses and all orders for this visit: Coronary artery calcification seen on CT scan (Primary) - ECG 12 lead Dyslipidemia associated with type 2 diabetes mellitus (CMS/HCC) - POCT lipid panel Benign hypertension Palpitations Statin intolerance Steatosis of liver Drug-induced gastric ulcer Cirrhosis of liver without ascites, unspecified hepatic cirrhosis type (CMS/HCC) Other chest pain PLAN/RECOMMENDATIONS 1. No sxs suggestive of angina or claudication. Atypical CP, sharp, musculoskeletal pains and adds that several tables fell on her and knocked her down, had to get xrays, no fractures though. No recurrence and remains active. Aggressive atherosclerotic risk modification counseling performed. Continue current medical therapy. Notify office immediately with anginal symptoms. Off ASA due to PUD, resolved but advised to remain off and continue PPI. She was taking ASA at night she states. -Risk vs benefit balance in favor of ASA but on hold per GI for now. Resume with precautions to take with full glass of water, food and remain upright for at least 60 minutes prior to lying down. 2. BP not ideally controlled, improved on repeat check in the office. Monitor BP on routine basis. Call with readings. Continue consistent cardiovascular exercise, weight loss, medication compliance,and low-sodium diet. 3. DM managed by PCP 4. Intolerant to statins, unfortunately. Lipids personally reviewed from 09/11/19 LDL , fair control. Continue lifestyle and dietary modifications as counseled. 5. Lifestyle modification counseling performed. Weight loss, exercise, reduction in caloric intake. 6. Following Machine Hostler at [facility], Dr. Vanegas. 7. 12 lead EKG today sinus bradycardia 59 beats per minute [place] interval 172 milliseconds QRS 82 milliseconds QT corrected 414 milliseconds otherwise normal EKG Over 50% of this visit counseling coronary calcifcation, HTN, lipids, medications, lifestyle modification. Follow up in the office in 1 year or sooner as needed. Thank you for allowing me the privilege of participating in the care this very pleasant patient. Please do not hesitate to contact me with any additional questions or concerns. Nicole Rascon MD, [facility] PATIONAL THERAPY CO DIRECTOR documented in this encounter Plan of Treatment Not on file documented as of this encounter Procedures Procedure Name Priority Date/Time Associated Diagnosis Comments POCT LIPID PANEL Routine 09/11/2019 11:4 5 AM OCCUPATIONAL THERAPY CO DIRECTOR Dyslipidemia associated with type 2 diabetes mellitus (CMS/HCC) ECG 12-LEAD Routine 09/11/2019 Coronary artery calcification seen on CT scan documented in this encounter Results * POCT lipid panel (09/11/2019 11:45 AM OCCUPATIONAL THERAPY CO DIRECTOR) Cholesterol, POC 150 mg/dL HDL, POC 59 mg/dL Triglycerides, POC 94 mg/dL LDL Cholesterol POC 73 mg/dL Chol/HDL Ratio, POC 2.6 Non-HDL Cholesterol, POC 91 mg/dL Cholesterol Total, POC 150 mg/dL Blood specimen (specimen) 09/11/2019 11:45 AM OCCUPATIONAL THERAPY CO DIRECTOR us David Rascon MD POINT OF CARE TEST ORDER LUIS Final Result * ECG 12 lead (09/11/2019) us David Rascon MD ECG ORDERABLES Final Re sult documented in this encounter Visit Diagnoses Diagnosis Coronary artery calcification seen on CT scan- Primary Dyslipidemia associated with type 2 diabetes mellitus (HCC) Benign hypertension Essential hypertension, benign Palpitations Statin intolerance Steatosis of liver Other chronic nonalcoholic liver disease Drug-induced gastric ulcer Cirrhosis of liver without ascites, unspecified hepatic cirrhosis type (HCC) Other chest pain documented in this encounter Discontinued Medications Medication Sig Discontinue Reason Start Date End Da te calcium carbonate-vitamin D3 1,500 mg (600mg elemental) -800 unit per tablet Take 1 tablet by mouth daily. Therapy completed 09/11/2019 omega-3 fatty acids 1,000 mg capsule Take by mouth. Therapy completed 09/11/2019 aspirin (ECOTRIN LOW STRENGTH) 81 mg tablet take 1 tablet by oral route every day Therapy completed 06/22/2016 09/11/2019 documented as of this encounter Historical Medications * This list may reflect changes made after this encounter. omeprazole (PriLOSEC) 20 mg capsuleIndication s:gerd Take 1 capsule (20 mg total) by mouth every morning added in this encounter Care Teams Senior Research Consultant Relationship Specialty Start Date End Date Karin Cordoba NP PCP - General Nurse Practitioner 08/20/17 08/29/23 documented as of this encounter
--- OUTSIDE RECORDS SUMMARY | 2024-09-25 22:00 | XMS_ITS | Encounter Summary ---
Author Organization [facility] Address [address] [place] [address] Care Team Providers Care Proposal Engineer Name Role Phone Israel Lin MD Primary Care Provider [phone] Reason for Visit * Cardiology (Routine) - Closed Specialty Diagnoses / Procedures Referred By Contac t Referred To Contact Diagnoses H/O: CVA (cerebrovascular accident) Palpitations Procedures MCT Mobile Cardiac Telemetry Event Monitor David Rascon MD Phone: tel: fax: [facility] Referral ID Status Reason Start Date Expiration Date Visits Re quested Visits Authorized [id number] Closed 09/16/2023 10/15/2024 1 1 Encounter Details Date Type Department Care Team (Latest Contact Info) Description 09/16/2023 2:30 PM BASEBALL CLUB MANAGER Ancillary Procedure [facility] Cardiology [address] [place] [address] H/O: CVA (cerebrovascular accident); Palpitations Social History Tobacco Use Types Packs/Day Years Used Date Smoking Tobacco: Never Smokeless Tobacco: Never Alcohol Use Standard Drinks/Week Comments No 0 (1 standard drink = 0.6 oz pur e alcohol) Comments Unknown Sex and Gender Information Value Date Recorded Sex Assigned at Not on file Legal Sex Female 3:37 AM BASEBALL CLUB MANAGER Gender Identity Female 01/28/2024 11:49 PM CDT Sexual Orientation Straight 08/12/2022 12 :04 PM CDT documented as of this encounter Plan of Treatment Pending Results Name Type Priority Associated Diagnoses Date /Time MCT Mobile Cardiac Telemetry Event Monitor Cardiac Services Routine H/O: CVA (cerebrovascular accident) Palpitations 09/16/2023 2:28 PM BASEBALL CLUB MANAGER documented as of this encounter Visit Diagnoses Diagnosis H/O: CVA (cerebrovascular accident) Palpitations documented in this encounter Care Teams Proposal Engineer Relationship Specialty Start Date End Date Isreal Lin MD PCP - General Family Practice 08/30/23 documented as of this encounter
--- OUTSIDE RECORDS SUMMARY | 2024-09-25 22:00 | XMS_ITS | Encounter Summary ---
Author Organization [facility] Medical Group Address [address] [place] [address] Care Team Providers Care Glass Designer Name Role Phone Karin Cordoba NP Primary Care Provider Reason for Referral * Cardiology (Routine) - Closed Specialty Diagnoses / Procedures Referred By Contac t Referred To Contact Diagnoses Coronary artery calcification seen on CT scan Procedures ECG 12 lead David Rascon MD Phone: tel: fax: External Order Referral ID Status Reason Start Date Expiration Date Visits Re quested Visits Authorized [id number] Closed 08/29/2018 03/09/2020 1 1 AIGN MARKETING SPECIALIST Reason for Visit * Reason Comments Follow-up yearly follow up on CAD, HTN, palps Encounter Details Date Type Department Care Team (Latest Contact Info) Description 08/29/2018 10:00 AM CAMPAIGN MARKETING SPECIALIST Office Visit [facility] [address] [place] [address] David Rascon MD [facility] [facility] [address] [place] [address] Coronary artery calcification seen on CT scan (Primary Dx); Benign hypertension; Dyslipidemia associated with type 2 diabetes mellitus (CMS/HCC); Statin intolerance; Palpitations; Cirrhosis of liver without ascites, unspecified hepatic cirrhosis type (CMS/HCC) Social History Tobacco Use Types Packs/Day Years Used Date Smoking Tobacco: Never Smokeless Tobacco: Never Alcohol Use Standard Drinks/Week Comments No 0 (1 standard drink = 0.6 oz pur e alcohol) Comments Unknown Sex and Gender Information Value Date Recorded Sex Assigned at Not on file Legal Sex Female 3:37 AM CAMPAIGN MARKETING SPECIALIST Gender Identity Female 01/28/2024 11:49 PM CDT Sexual Orientation Straight 08/12/2022 12 :04 PM CDT documented as of this encounter Last Filed Vital Signs Vital Sign Reading Time Taken Comments Blood Pressure 136/76 08/29/2018 10:28 AM CAMPAIGN MARKETING SPECIALIST Pulse 82 08/29/2018 10:28 AM CAMPAIGN MARKETING SPECIALIST Temperature - - Respiratory Rate - - Oxygen Saturation 96% 08/29/2018 10:28 AM CAMPAIGN MARKETING SPECIALIST Inhaled Oxygen Concentration - - Weight 72.1 kg (159 lb) 08/29/2018 10:28 AM CAMPAIGN MARKETING SPECIALIST Height 160 cm (5' 3 ) 08/29/2018 10:28 AM CAMPAIGN MARKETING SPECIALIST Body Mass Index 28.17 08/29/2018 10:28 AM CAMPAIGN MARKETING SPECIALIST documented in this encounter Progress Notes * David Rascon MD - 08/29/2018 10:00 AM CST [facility] DATE OF VISIT: 08/29/2018 CHIEF COMPLAINT Chief Complaint Patient presents with ??? Follow-up yearly follow up on CAD, HTN, palps HPI Maggie Erazo is a 77 y.o. female with a PMHx of diabetes [...] basis, although did check recently SBP 132mmHg. MEDICAL HISTORY Past Medical History: Diagnosis Date ??? Hypertension Social History Substance Use Topics ??? Smoking status: Never Smoker ??? Smokeless tobacco: Never Used ??? Alcohol use No Family History Problem Relation Age of Onset ??? Alzheimer's disease Father Alzheimer's disease; ??? Kidney failure Father 91 Kidney failure; Cause of : Kidney failure ??? Stroke Mother Stroke; ??? Hypertension Mother Hypertension; MEDICATIONS HOME MEDICATIONS : artificial tears,hypromellose, 0.3 % drops ascorbic acid (ascorbic acid with darlene hips) 500 mg tablet aspirin (ECOTRIN LOW STRENGTH) 81 mg tablet atenolol (TENORMIN) 50 mg tablet calcium carbonate (CALCIUM 600) 1,500 mg (600 mg of elemental calcium) tablet calcium carbonate-vitamin D3 1,500 mg (600mg elemental) -800 unit per tablet cycloSPORINE (RESTASIS) 0.05 % ophthalmic emulsion fluticasone (FLONASE) 50 mcg/actuation nasal spray levothyroxine sodium (TIROSINT) 125 mcg capsule losartan (COZAAR) 25 mg tablet losartan (COZAAR) 50 mg tablet metFORMIN (GLUCOPHAGE) 500 mg tablet montelukast (SINGULAIR) 10 mg tablet multivitamin tablet tablet omega-3 fatty acids 1,000 mg capsule polycarbophil (FIBERCON) 625 mg tablet levothyroxine (SYNTHROID, LEVOTHROID) 100 mcg tablet ALLERGIES Allergies Allergen Reactions ??? Adhesive Tape-Silicones Hives ??? Codeine Other (See comments) Acute abd. pain Acute abd. pain, ??? Jgipxhx-Ezi-Xyo Reductase Inhibitors Other (See comments) REVIEW OF SYSTEMS Review of Systems Constitution: Positive for weight gain. Negative for decreased appetite, diaphoresis, fever, weakness, malaise/fatigue and night sweats. HENT: Negative for hearing loss and nosebleeds. [...] and myalgias. Gastrointestinal: Negative for abdominal pain, heartburn, hematemesis, melena and nausea. Genitourinary: Negative for dysuria, hematuria and nocturia. Neurological: Positive for dizziness. Negative for excessive daytime sleepiness, focal weakness, headaches, light-headedness and loss of balance. Psychiatric/Behavioral: Negative for altered mental status, depression and memory loss. The patientis not nervous/anxious. Allergic/Immunologic: Negative for environmental allergies. PHYSICAL EXAM Vitals BP 136/76 (BP Location: Right arm, Patient Position: Sitting) Pulse 82 Ht 160 cm (5' 3 ) Wt 72.1 kg (159 lb) SpO2 96% BMI 28.17 kg/m?? Weight: 72.1 kg (159 lb) Height: 160 cm (5' 3 ) Body mass index is 28.17 kg/m??. Physical Exam Constitutional: She is oriented [...] no guarding. Musculoskeletal: Normal range of motion. She exhibits no edema, tenderness or deformity. Lymphadenopathy: She has no cervical adenopathy. Neurological: [...] AND OTHER DIAGNOSTIC TESTS Office Visit on 08/29/2018 Component Date Value [...] Cholesterol Total, POC 176 mg/dL Personally reviewed EKG, Echocardiogram, stress test, and bloodwork/lipids. ASSESSMENT Diagnoses and all orders for this visit: Coronary artery calcification seen on CT scan (Primary) - ECG 12 lead Benign hypertension Dyslipidemia associated with type 2 diabetes mellitus (CMS/HCC) - POCT lipid panel Statin intolerance Palpitations Cirrhosis of liver without ascites, unspecified hepatic cirrhosis type (CMS/HCC) PLAN/RECOMMENDATIONS 1. No sxs suggestive of angina or claudication. Aggressive atherosclerotic risk modification counseling performed. Continue current medical therapy. Notify office immediately with anginal symptoms. Cont ASA 81mg daily. 2. BP not ideally controlled, improved on repeat check in the office. Monitor BP on routine basis. Call with readings. Continue consistent cardiovascular exercise, weight loss, medication compliance,and low-sodium diet. 3. DM managed by PCP 4. Intolerant to statins, unfortunately. Lipids personally reviewed from 08/29/18 LDL 73, fair control. Continue lifestyle and dietary modifications as counseled. 5. Lifestyle modification counseling performed. Weight loss, exercise, reduction in caloric intake. 6. Following Epic Trainer at [facility], Dr. Vanegas. 7. 12 lead EKG today sinus rhythm, nonspecific ST changes inferior leads 75 beats per minute MI 160milliseconds QRS 80 milliseconds QT corrected 422 millisecond Over 50% of this visit counseling coronary calcifcation, HTN, lipids, medications, lifestyle modification. Follow up in the office in 1 year or sooner as needed. Thank you for allowing me the privilege of participating in the care this very pleasant patient. Please do not hesitate to contact me with any additional questions or concerns. Nicole Rascon MD, [facility] AIGN MARKETING SPECIALIST AIGN MARKETING SPECIALIST documented in this encounter Plan of Treatment Not on file documented as of this encounter Procedures Procedure Name Priority Date/Time Associated Diagnosis Comments POCT LIPID PANEL Routine 08/29/2018 11:0 0 AM CAMPAIGN MARKETING SPECIALIST Dyslipidemia associated with type 2 diabetes mellitus (CMS/HCC) ECG 12-LEAD Routine 08/29/2018 Coronary artery calcification seen on CT scan documented in this encounter Results * POCT lipid panel (08/29/2018 11:00 AM CAMPAIGN MARKETING SPECIALIST) Cholesterol, POC 176 mg/dL HDL, POC 67 mg/dL Triglycerides, POC 179 mg/dL LDL Cholesterol POC 73 mg/dL Chol/HDL Ratio, POC 2.6 Non-HDL Cholesterol, POC 109 mg/dL Cholesterol Total, POC 176 mg/dL Blood specimen (specimen) 08/29/2018 11:00 AM CAMPAIGN MARKETING SPECIALIST David Rascon MD POINT OF CARE TEST ORDER LUIS Final Result * ECG 12 lead (08/29/2018) us David Rascon MD ECG ORDERABLES Final Re sult documented in this encounter Visit Diagnoses Diagnosis Coronary artery calcification seen on CT scan- Primary Benign hypertension Essential hypertension, benign Dyslipidemia associated with type 2 diabetes mellitus (HCC) Statin intolerance Palpitations Cirrhosis of liver without ascites, unspecified hepatic cirrhosis type (HCC) documented in this encounter Discontinued Medications Medication Sig Discontinue Reason Start Date End Da te levothyroxine (SYNTHROID, LEVOTHROID) 100 mcg tablet take 1 tablet by oral route every day Alternate therapy 02/19/2015 08/29/2018 documented as of this encounter Historical Medications * This list may reflect changes made after this encounter. calcium carbonate-vitami n D3 1,500 mg (600mg elemental) -800 unit per tablet Take 1 tablet by mouth daily. 9 fluticasone (FLONASE) 50 mcg/actuation nasal spray Administer 1 spray into each nostril daily. 1 montelukast (SINGULAIR) 10 mg tablet Take 10 mg by mouth nightly. 3 levothyroxine sodium (TIROSINT) 125 mcg capsule Take 125 mcg by mouth daily. 0 added in this encounter Care Teams Glass Designer Relationship Specialty Start Date End Date Karin Cordoba NP PCP - General Nurse Practitioner 08/20/17 08/29/23 documented as of this encounter
--- OUTSIDE RECORDS SUMMARY | 2024-09-25 22:00 | XMS_ITS | Encounter Summary ---
Author Organization [facility] Medical Group Address [address] [place] [address] Care Team Providers Care Square Shear Operator Name Role Phone Karin Cordoba NP Primary Care Provider [phone] Reason for Visit * Reason Comments Follow-up yearly follow up on HTN Encounter Details Date Type Department Care Team (Latest Contact Info) Description 08/20/2017 3:30 PM EYEWEAR CONSULTANT Office Visit [facility] [address] [place] [id number] David Rascon MD [address] [place] [address] Coronary artery calcification seen on CT scan (Primary Dx); Dyslipidemia associated with type 2 diabetes mellitus (CMS/HCC); Benign hypertension; Palpitations; Statin intolerance; Steatosis of liver; Acquired hypothyroidism; Other chest pain Social History Tobacco Use Types Packs/Day Years Used Date Smoking Tobacco: Never Smokeless Tobacco: Never Alcohol Use Standard Drinks/Week Comments No 0 (1 standard drink = 0.6 oz pur e alcohol) Comments Unknown Sex and Gender Information Value Date Recorded Sex Assigned at Not on file Legal Sex Female 3:37 AM EYEWEAR CONSULTANT Gender Identity Female 01/28/2024 11:49 PM CDT Sexual Orientation Straight 08/12/2022 12 :04 PM CDT documented as of this encounter Last Filed Vital Signs Vital Sign Reading Time Taken Comments Blood Pressure 126/80 08/20/2017 3:44 PM EYEWEAR CONSULTANT Pulse 78 08/20/2017 3:44 PM EYEWEAR CONSULTANT Temperature - - Respiratory Rate - - Oxygen Saturation 98% 08/20/2017 3:44 PM EYEWEAR CONSULTANT Inhaled Oxygen Concentration - - Weight 71.7 kg (158 lb) 08/20/2017 3:44 PM EYEWEAR CONSULTANT Height 160 cm (5' 3 ) 08/20/2017 3:44 PM EYEWEAR CONSULTANT Body Mass Index 27.99 08/20/2017 3:44 PM EYEWEAR CONSULTANT documented in this encounter Progress Notes * David Rascon MD - 08/20/2017 3:30 PM CST [facility] DATE OF VISIT: 08/20/2017 CHIEF COMPLAINT Chief Complaint Patient presents with ??? Follow-up yearly follow up on HTN HPI Maggie Erazo is a 76 y.o. female with a PMHx of diabetes [...] a bit. Notes leg fatigue very quickly. MEDICAL HISTORY Past Medical History: Diagnosis Date [...] cycloSPORINE (RESTASIS) 0.05 % ophthalmic emulsion levothyroxine (SYNTHROID, LEVOTHROID) 100 mcg tablet losartan (COZAAR) 25 mg tablet losartan (COZAAR) 50 mg tablet metFORMIN (GLUCOPHAGE) 500 mg tablet multivitamin tablet tablet omega-3 fatty acids 1,000 mg capsule polycarbophil (FIBERCON) 625 mg tablet ALLERGIES Allergies Allergen Reactions ??? Adhesive Tape-Silicones Hives ??? Aotujdg-Qdm-Trf Reductase Inhibitors ??? Codeine Other (See comments) Acute abd. pain REVIEW OF SYSTEMS Review of Systems Constitution: Positive for weight gain. Negative for decreased appetite, diaphoresis, fever, weakness, malaise/fatigue and night sweats. HENT: Negative for hearing loss and nosebleeds. Eyes: Negative for blurred vision and pain. Cardiovascular: Positive for chest pain, irregular heartbeat and palpitations. Negative for claudication, dyspnea on exertion, leg swelling, near-syncope, orthopnea and syncope. Respiratory: Negative for cough, hemoptysis, shortness of breath, snoring and wheezing. Endocrine: Negative for cold intolerance and heat intolerance. Hematologic/Lymphatic: Negative for bleeding problem. Does not bruise/bleed easily. Skin: Negative for color change, itching, rash and suspicious lesions. Musculoskeletal: Positive for joint pain, muscle weakness and myalgias. Negative for falls. Gastrointestinal: Negative for abdominal pain, heartburn, hematemesis, melena and nausea. Genitourinary: Negative for dysuria, hematuria and nocturia. Neurological: Negative for excessive daytime sleepiness, dizziness, focal weakness, headaches, light-headedness and loss of balance. Psychiatric/Behavioral: Negative for altered mental status, depression and memory loss. The patientis not nervous/anxious. Allergic/Immunologic: Negative for environmental allergies. PHYSICAL EXAM Vitals: 08/20/17 1544 BP: 126/80 Pulse: 78 SpO2: 98% Weight: 71.7 kg (158 lb) Height: 160 cm (5' 3 ) Body mass index is 27.99 kg/m??. Physical Exam Constitutional: She is oriented [...] visit. Latest known visit with results is: No results found for any previous visit. No results found for this or any previous visit. Reviewed EKG, Echocardiogram, stress test, and bloodwork/lipids. ASSESSMENT Diagnoses and all orders for this visit: 1. Coronary artery calcification seen on CT scan (Primary) 2. Dyslipidemia associated with type 2 diabetes mellitus (CMS/HCC) 3. Benign hypertension 4. Palpitations 5. Statin intolerance 6. Steatosis of liver 7. Acquired hypothyroidism 8. Other chest pain PLAN/RECOMMENDATIONS 1. Atypical CP resolved with adjustment in thyroid medication. Aggressive CAD risk modification counseling performed. Continue current medical therapy. Notify office immediately with anginal symptoms. 2. BP controlled. Monitor BP on routine basis. Call with readings. Continue consistent cardiovascular exercise, weight loss, medication compliance, and low- sodium diet. 3. DM managed by PCP 4. Lipids done recently. Will review when available. 5. Lifestyle modification counseling performed. Weight loss, exercise, reduction in caloric intake. 6. Following Plastic Welder at [facility], Dr. Vanegas. Over 50% of this visit counseling coronary calcifcation, HTN, lipids, medications, lifestyle modification. Follow up in the office in 1 year. Thank you for allowing me the privilege of participating in the care this very pleasant patient. Please do not hesitate to contact me with any additional questions or concerns. Nicole Rascon MD, [facility] EAR CONSULTANT documented in this encounter Plan of Treatment Not on file documented as of this encounter Visit Diagnoses Diagnosis Coronary artery calcification seen on CT scan- Primary Dyslipidemia associated with type 2 diabetes mellitus (HCC) Benign hypertension Essential hypertension, benign Palpitations Statin intolerance Steatosis of liver Other chronic nonalcoholic liver disease Acquired hypothyroidism Unspecified hypothyroidism Other chest pain documented in this encounter Historical Medications * This list may reflect changes made after this encounter. artificial tears,hypromello se, 0.3 % dropsIndications :Dry Eye Administer 1 drop into both eyes daily as needed cycloSPORINE (RESTASIS) 0.05 % ophthalmic emulsionIndicati ons:dry eye Administer 1 drop into both eyes 2 (two) times a day polycarbophil (FIBERCON) 625 mg tablet Take 625 mg by mouth daily. 1 omega-3 fatty acids 1,000 mg capsule Take by mouth. 9 added in this encounter Care Teams Square Shear Operator Relationship Specialty Start Date End Date Karin Cordoba NP PCP - General Nurse Practitioner 08/20/17 08/29/23 documented as of this encounter
--- OUTSIDE RECORDS SUMMARY | 2024-09-25 22:00 | XMS_ITS | Encounter Summary ---
Author Organization [facility] Healthcare Address [address] [address] Care Team Providers Care Doffer Name Role Phone Isreal Lin MD Primary Care Provider [phone] Reason for Referral * Cardiology (Routine) - Closed Specialty Diagnoses / Procedures Referred By Contac t Referred To Contact Diagnoses H/O: CVA (cerebrovascular accident) Palpitations Procedures MCT Mobile Cardiac Telemetry Event Monitor David Rascon MD Phone: tel: fax: [facility] Referral ID Status Reason Start Date Expiration Date Visits Re quested Visits Authorized [id number] Closed 09/16/2023 10/15/2024 1 1 IFIED ORTHOTIST Encounter Details Date Type Department Care Team (Late st Contact Info) Description 09/16/2023 Orders Only [facility] Cardiology [address] [place] [address] Lisha Eduardo MA H/O: CVA (cerebrovascular accident) (Primary Dx); Palpitations Social History Tobacco Use Types Packs/Day Years Used Date Smoking Tobacco: Never Smokeless Tobacco: Never Alcohol Use Standard Drinks/Week Comments No 0 (1 standard drink = 0.6 oz pur e alcohol) Comments Unknown Sex and Gender Information Value Date Recorded Sex Assigned at Not on file Legal Sex Female 3:37 AM CERTIFIED ORTHOTIST Gender Identity Female 01/28/2024 11:49 PM CDT Sexual Orientation Straight 08/12/2022 12 :04 PM CDT documented as of this encounter Plan of Treatment Pending Results Name Type Priority Associated Diagnoses Date /Time MCT Mobile Cardiac Telemetry Event Monitor Cardiac Services Routine H/O: CVA (cerebrovascular accident) Palpitations 09/16/2023 2:28 PM CERTIFIED ORTHOTIST Scheduled Orders Name Type Priority Associated Diagnoses Orde r Schedule MCT Mobile Cardiac Telemetry Event Monitor Cardiac Services Routine H/O: CVA (cerebrovascular accident) Palpitations Expected: 09/16/2023, Expires: 09/16/2024 documented as of this encounter Visit Diagnoses Diagnosis H/O: CVA (cerebrovascular accident)- Primary Palpitations documented in this encounter Care Teams Doffer Relationship Specialty Start Date End Date Isreal Lin MD PCP - General Family Practice 08/30/23 documented as of this encounter
--- OUTSIDE RECORDS SUMMARY | 2024-09-25 22:00 | XMS_ITS | Encounter Summary ---
Author Organization [facility] Healthcare Address [address] [place] [address] Care Team Providers Care Boiler House Inspector Name Role Phone Isreal Lin MD Primary Care Provider [phone] Encounter Details Date Type Department Care Team (Late st Contact Info) Description 10/01/2023 Telephone [facility] Medical [facility] Cardiology [address] [place] [address] David Rascon MD [facility] [facility] [address] [place] [address] Social History Tobacco Use Types Packs/Day Years [...] on file Legal Sex Female 3:37 AM FRONT END LOADER OPERATOR Gender Identity Female 01/28/2024 11:49 PM CDT Sexual Orientation Straight 08/12/2022 12 :04 PM CDT documented as of this encounter Miscellaneous Notes * Telephone Encounter - Meg Arredondo RN - 10/01/2023 2:29 PM CST No evidence for atrial fibrillation atrial flutter on heart monitor. Good news. Continue to monitorclinically. LM On VM per AD ----- Message from David Rascon MD sent at 10/01/2023 2:19 PM FRONT END LOADER OPERATOR ----- ----- Message ----- From: Valentina Steiner MA Sent: 09/28/2023 5:52 PM FRONT END LOADER OPERATOR To: David Rascon MD T END LOADER OPERATOR T END LOADER OPERATOR documented in this encounter Plan of Treatment Not on file documented as of this encounter Visit Diagnoses Not on filedocumented in this encounter Care Teams Boiler House Inspector Relationship Specialty Start Date End Date Isreal Lin MD PCP - General Family Practice 08/30/23 documented as of this encounter
--- OUTSIDE RECORDS SUMMARY | 2024-09-25 22:00 | XMS_ITS | Encounter Summary ---
Author Organization [facility] Medical Group Address [address] [place] [address] Care Team Providers Care Calendar Control Clerk Blood Bank Name Role Phone Karin Cordoba NP Primary Care Provider Reason for Visit * Reason Onset Date Comments Scheduling Appointments 07/23/2021 Need to r/s appt on 08/04/21 Encounter Details Date Type Department Care Team (Late st Contact Info) Description 07/23/2021 Telephone [facility] Cardiology [address] [place] [address] Lisha Eduardo MA Scheduling Appointments (Need to r/s appt on 08/04/21) Social History Tobacco Use Types Packs/Day Years Used Date Smoking Tobacco: Never Smokeless Tobacco: Never Alcohol Use Standard Drinks/Week Comments No 0 (1 standard drink = 0.6 oz pur e alcohol) Comments Unknown Sex and Gender Information Value Date Recorded Sex Assigned at Not on file Legal Sex Female 3:37 AM RADIATION THERAPIST Gender Identity Female 01/28/2024 11:49 PM CDT Sexual Orientation Straight 08/12/2022 12 :04 PM CDT documented as of this encounter Miscellaneous Notes * Telephone Encounter - Lisha Eduardo MA - 07/23/2021 1:37 PM CDT 07/23/21- we need to r/s documented in this encounter Plan of Treatment Not on file documented as of this encounter Visit Diagnoses Not on filedocumented in this encounter Care Teams Calendar Control Clerk Blood Bank Relationship Specialty Start Date End Date Karin Cordoba NP PCP - General Nurse Practitioner 08/20/17 08/29/23 documented as of this encounter
--- OUTSIDE RECORDS SUMMARY | 2024-09-25 22:00 | XMS_ITS | Encounter Summary ---
Author Organization [facility] Address [address] [place] [address] Care Team Providers Care Patient Safety Tech Name Role Phone Isreal Lin MD Primary Care Provider [phone] Reason for Visit * Auth/Cert (Routine) Specialty Diagnoses / Procedures Referred By Contac t Referred To Contact Diagnoses Chronic pansinusitis Chronic pansinusitis [J32.4] Procedures MO NSL/SINUS NDSC MAX ANTROST W/RMVL TISS MAX SINUS MO NASAL/SINUS NDSC W/RMVL TISS FROM FRONTAL SINUS MO NASAL/SINUS NDSC TOT W/SPHENDT W/SPHEN TISS RMVL ENDOSCOPIC SINUS SURGERY WITH NAVIGATION Samir Khan MD [address] [place] [address] Phone: tel: fax: Referral ID Status Reason Start Date Expiration Date Visits Re quested Visits Authorized [id number] 10/18/2023 1 1 Encounter Details Date Type Department Care Team (Late st Contact Info) Description 12/17/2023 11:08 AM FUNERAL HOME MANAGER Anesthesia Event [facility] Operating Room [id number] [address] [id number] Jazmyn Massey MD [address] [place] [address] Deven Segovia MD [address] [place] [address] [phone] (work) Anesthesia Record Procedure Summary Procedure Name Responsible Anesthesiologist Anesthesia Start Time Anesthesia Stop Time ENDOSCOPIC SINUS SURGERY WITH NAVIGATION (Bilateral: Face) Jazmyn Massey MD 12/17/23 1108 12/17/23 1311 Events Date Time Event Comment 12/17/2023 0749 In Preop 0752 AN Equip Check 0826 1108 An Start 1108 In Room 1109 An Start Data 1109 Proc Start 1111 An Induction The patient was reevaluated immediately before moderate or deep sedation use and before anesthesia induction. 1113 An Intubation 1123 Anesthesia Ready 1138 Incision Start 1257 An Extubation 1257 Proc Fin 1304 an stop data 1304 Out of Room 1311 Handoff to RN I completed my handoff to the receiving nurse during which we: 1. Patient identified 2. Responsible provider identified 3. Pertinent medical history reviewed 4. Procedure type and surgical course discussed 5. Intraoperative anesthetic management and any significant issues discussed 6. Expectations and concerns for postop period discussed 7. Questions solicited from receiving nurse 8. Patient disposition at the time of handoff: No value filed. 1311 An Stop Meds Name Total fentaNYL PF 100 mcg Lidocaine IV 1% PF 50 mg propofol 120 mg rocuronium 20 mg succinylcholine syringe 100 mg/5 mL 80 m g ondansetron PF 4 mg phenylephrine 0.1 mg/mL syringe 200 mcg ePHEDrine 25 mg sugammadex 140 mg Lactated Ringer's (LR) infusion 1,500 mL * Agents Name O2 N2O Air Sevoflurane Inspired Sevoflurane * Blood No blood administrations on file. Lines, Drains, and Airways Type Details Placement Removal Peripheral IV Placement Date: 12/17/23; Placement Time: 832; Catheter Size: 20 G; Orientation: Left, Posterior; Location: Hand; Site Prep: Chlorhexidine; Technique: Anatomical landmarks; Inserted by: festus; Insertion Attempts: 1; Patient Tolerance: Tolerated well; Removal Date: 12/17/23; Removal Time: 1540 12/17/23 0833 by Zara Treviño RN 12/17/23 154 by Dana Marinelli RN ETT Placement Date: 12/17/23; Placement Time: 112 (created via procedure documentation); Mask Ventilation: 1; Technique: Direct laryngoscopy; Type: ETT - single; Single Lumen Tube Size: 7 mm; Cuffed: Yes; Laryngoscope: Heidy; Blade Size: 4; Location: Oral; Grade View: Grade I; Insertion Attempts: 1; Placement Verification: Auscultation, Capnometry; Removal Date: 12/17/23; Removal Time: 1257 12/17/23 1128 by Claudette Pennington CRNA 12/17/23 1257 by Claudette Pennington CRNA RETIRED Surgical Site 12/17/23; 1149; Bilateral; Nose; 09/12/24 (Retired LDA, Removed/Completed by GFS IT with LDA Utility); 1213 (Retired LDA, Removed/Completed by GFS IT with LDA Utility) 12/17/23 1149 by Sheron Mensah RN 09/12/24 1213 by Discharge Provider, Automatic documented in this encounter Social History Tobacco Use Types Packs/Day Years [...] on file Legal Sex Female 3:37 AM FUNERAL HOME MANAGER Gender Identity Female 01/28/2024 11:49 PM CDT Sexual Orientation Straight 08/12/2022 12 :04 PM CDT documented as of this encounter OR Notes * Anesthesia Postprocedure Evaluation - Jazmyn Massey MD - 12/17/2023 1:24 PM CST Patient: Maggie Erazo Procedure Summary Date: 12/17/23 Room / Location: [facility] Anesthesia Start: 1108 Anesthesia Stop: 1311 Procedure: ENDOSCOPIC SINUS SURGERY WITH NAVIGATION (Bilateral: Face) Diagnosis: Chronic pansinusitis (Chronic pansinusitis [J32.4]) Surgeons: Samir Khan MD Responsible Provider: Jazmyn Massey MD Anesthesia Type: general ASA Status: 3 Anesthesia Type: general Last vitals BP 158/73 Pulse 69 Temp 36 ??C (96.8 ??F) (Temporal) Resp 12 SpO2 97% Anesthesia Post Evaluation Patient location during evaluation: PACU Patient participation: complete - patient participated Level of consciousness: fully awake Pain score: 0 Pain management: adequate Airway patency: adequate Evidence of recall: no Cardiovascular status: hemodynamically stable and acceptable Respiratory status: acceptable and room air Hydration status: acceptable Pt is: normothermic Nausea/Vomiting status: none No notable events documented. RAL HOME MANAGER * Anesthesia Procedure Notes - Claudette Pennington CRNA - 12/17/2023 11:27 AM CSTAssociated Order(s): Airway Airway Patient location: OR Urgency: elective Indications for airway management: anesthesia Difficult airway: no Staff: Placed by: LIVE SOURCE OPERATOR: Claudette Pennington CRNA Emergent airway documentation: Risks and benefits discussed: yes Consent obtained: yes Consent given by: patient Airway prep: Preoxygenated: yes Patient position: sniffing Mask difficulty assessment: 1 - vent by mask Spontaneous ventilation during airway: absent Sedation level during airway: GA Final airway details: Final airway type: endotracheal airway Tube type: ETT ETT size: 7.0 mm Cuffed: yes Technique used for successful ETT placement: direct laryngoscopy Devices/Methods used in placement: stylet Insertion site: oral Blade type: Heidy Blade size: 4 Cormack-Lehane (direct): grade I - full view of glottis Cuff volume: 5 mL Cuff inflated with: air ETT to teeth: 21 cm Placement verified by: auscultation and CO2 detection Airway secured with: silk tape Number of attempts: 1 RAL HOME MANAGER * Anesthesia Preprocedure Evaluation - Jazmyn Massey MD - 12/10/2023 10:46 AM CST Images from the original note were not included. [facility] Preoperative Assessment and Planning Preoperative Evaluation Record Evaluation type/location: TPAP from [facility] Planned procedure site: [facility] OR Date: 12/10/23 NOTE: This note represents [...] veins) Last VTE date: 2013. Pertinent negatives: ID ; CABG ; valve replacement; atrial fibrillation; [...] provided by telephone and electronically sent via [employer]. Patient verbalized understanding of instructions. Blood bank [...] Please call the CPAP chart room clinician ([phone]) with any questions. TPAP assessment complete Preoperative evaluation performed by Krupa Sullivan NP on 12/10/23 at 10:47 AM . 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 pain, Loratadine-Pseudoephedrine Other (See comments) Dtzebaf-Rgv-Tws Reductase Inhibitors Other (See comments) Med List [...] (CORGARD) 40 mg tablet 12/01/2023 08/17/20 -- Lia Corrales MD omeprazole (PriLOSEC) 20 mg capsule 12/01/2023 -- -- Lia Corrales MD No current facility-administered medications for this [...] this visit. Relevant diagnostics: ECG(s): 02/09/22: Echocardiogram(s): 10/26/23: TTE CONCLUSIONS: Normal left ventricular systolic function. [...] Medication protocol when under care of a LIVE SOURCE OPERATOR Planned anesthesia: General Team communication plan: oral [...] and agree to proceed. All questions answered. RAL HOME MANAGER RAL HOME MANAGER RAL HOME MANAGER documented in this encounter Plan of Treatment Not on file documented as of this encounter Procedures Procedure Name Priority Date/Time Associated Diagnosis Comments MO AN PROCEDURE PLACEHOLDER Routine 12/17/2023 11:27 AM FUNERAL HOME MANAGER MO AN ELECTIVE ENDOTRACHEAL AIRWAY Routine 12/17/2023 11:27 AM FUNERAL HOME MANAGER documented in this encounter Results * MO AN ELECTIVE ENDOTRACHEAL AIRWAY, MO AN PROCEDURE PLACEHOLDER (12/17/2023 11:27 AM FUNERAL HOME MANAGER) Narrative Claudette Pennington CRNA - 12/17/2023 11:27 AM FUNERAL HOME MANAGER Claudette Pennington CRNA ? 12/17/2023 11:28 AM Airway Patient location: OR Urgency: elective Indications for airway management: anesthesia Difficult airway: no Staff: Placed by: LIVE SOURCE OPERATOR: Claudette Pennington CRNA Emergent airway documentation: Risks and benefits discussed: yes Consent obtained: yes Consent given by: patient Airway prep: Preoxygenated: yes Patient position: sniffing Mask difficulty assessment: 1 - vent by mask Spontaneous ventilation during airway: absent Sedation level during airway: GA Final airway details: Final airway type: endotracheal airway Tube type: ETT ETT size: 7.0 mm Cuffed: yes Technique used for successful ETT placement: direct laryngoscopy Devices/Methods used in placement: stylet Insertion site: oral Blade type: Heidy Blade size: 4 Cormack-Lehane (direct): grade I - full view of glottis Cuff volume: 5 mL Cuff inflated with: air ETT to teeth: 21 cm Placement verified by: auscultation and CO2 detection Airway secured with: silk tape Number of attempts: 1 Jazmyn Massey MD ANESTHESIA ORDERABLES Fi nal Result documented in this encounter Visit Diagnoses Not on filedocumented in this encounter Administered Medications Inactive Administered Medications - up to 3 most recent administrations Medication Order MAR Action Action Date Dose Rate Site ePHEDrine injection intravenous, Administer over 5 Minutes, As needed, Starting on Wed12/17/23 at 1130, Anesthesia Intra-op Given 12/17/2023 12:25 PM FUNERAL HOME MANAGER 15 mg Given 12/17/2023 11:30 AM FUNERAL HOME MANAGER 10 mg fentaNYL (SUBLIMAZE) preservative free injection intravenous, As needed, Starting on Wed12/17/23 at 1106, Anesthesia Intra-op Given 12/17/2023 12:12 PM FUNERAL HOME MANAGER 25 mcg Given 12/17/2023 11:40 AM FUNERAL HOME MANAGER 25 mcg Given 12/17/2023 11:11 AM FUNERAL HOME MANAGER 25 mcg Lactated Ringer's (LR) infusion 30 mL/hr, intravenous, Continuous, Starting on Wed12/17/23 at 0845, For 4 hours, Pre-Op, Use a 500 ml bag for End Stage Renal Disease Patients. Discontinue if fluid still running once patient arrives to floor. New Bag 12/17/2023 11:55 AM FUNERAL HOME MANAGER New Bag 12/17/2023 11:08 AM FUNERAL HOME MANAGER lidocaine (PF) (XYLOCAINE) 10 mg/mL (1 %) preservative free injection intravenous, As needed, Starting on Wed12/17/23 at 1111, Anesthesia Intra-op Given 12/17/2023 11:11 AM FUNERAL HOME MANAGER 50 mg ondansetron (ZOFRAN) injection intravenous, Administer over 2 Minutes, As needed, Starting on Wed12/17/23 at 1123, Anesthesia Intra-op Given 12/17/2023 11:23 AM FUNERAL HOME MANAGER 4 mg phenylephrine (AZUL-SYNEPHRINE) 1 mg/10 mL (100 mcg/mL) in sodium chloride 0.9% (premix) intravenous, As needed, Starting on Wed12/17/23 at 1125, Anesthesia Intra-op Given 12/17/2023 11:26 AM FUNERAL HOME MANAGER 100 mcg Given 12/17/2023 11:25 AM FUNERAL HOME MANAGER 100 mcg propofoL (DIPRIVAN) 10 mg/mL IV intravenous, As needed, Starting on Wed12/17/23 at 1111, Anesthesia Intra-op New Bag 12/17/2023 11:11 AM FUNERAL HOME MANAGER 120 mg rocuronium (ZEMURON) injection intravenous, As needed, Starting on Wed12/17/23 at 1132, Anesthesia Intra-op Given 12/17/2023 11:32 AM FUNERAL HOME MANAGER 20 mg succinylcholine syringe intravenous, As needed, Starting on Wed12/17/23 at 1111, Anesthesia Intra-op Given 12/17/2023 11:11 AM FUNERAL HOME MANAGER 80 mg sugammadex (BRIDION) 100 mg/mL intravenous solution intravenous, As needed, Starting on Wed12/17/23 at 1255, Anesthesia Intra-op Given 12/17/2023 12:55 PM FUNERAL HOME MANAGER 140 mg documented in this encounter Care Teams Patient Safety Tech Relationship Specialty Start Date End Date Isreal Lin MD PCP - General Family Practice 08/30/23 documented as of this encounter
--- OUTSIDE RECORDS SUMMARY | 2024-09-25 22:00 | XMS_ITS | Encounter Summary ---
Author Organization [facility] Facility Care Team Providers Care Warehouse Handler Name Role Phone Karin Cordoba NP Primary Care Provider [phone] Encounter Details Date Type Department Care Team (Latest Contact Info) Description 09/11/2019 Travel Social History Tobacco Use Types Packs/Day Years Used Date Smoking Tobacco: Never Smokeless Tobacco: Never Alcohol Use Standard Drinks/Week Comments No 0 (1 standard drink = 0.6 oz pur e alcohol) Comments Unknown Sex and Gender Information Value Date Recorded Sex Assigned at Not on file Legal Sex Female 3:37 AM FISCAL SERVICES DIRECTOR Gender Identity Female 01/28/2024 11:49 PM CDT Sexual Orientation Straight 08/12/2022 12 :04 PM CDT documented as of this encounter Plan of Treatment Not on file documented as of this encounter Visit Diagnoses Not on filedocumented in this encounter Care Teams Warehouse Handler Relationship Specialty Start Date End Date Karin Cordoba NP PCP - General Nurse Practitioner 08/20/17 08/29/23 documented as of this encounter
--- OUTSIDE RECORDS SUMMARY | 2024-09-25 22:00 | XMS_ITS | Encounter Summary ---
Author Organization [facility] Address [address] [place] [address] Care Team Providers Care Consulting Property Manager Name Role Phone Karin Cordoba NP Primary Care Provider [phone] Reason for Visit * Reason Comments Coronary artery calcifcation 4-5 mo f/u Encounter Details Date Type Department Care Team (Late st Contact Info) Description 01/24/2021 8:30 AM CDT Office Visit [facility] Cardiology [address] [place] [id number] Sarah Vo NP [address] [facility] [address] [place] [address] Coronary artery calcification seen on CT scan (Primary Dx); Hypertension associated with diabetes ([facility]/HCC) Social History Tobacco Use Types Packs/Day Years Used Date Smoking Tobacco: Never Smokeless Tobacco: Never Alcohol Use Standard Drinks/Week Comments No 0 (1 standard drink = 0.6 oz pur e alcohol) Comments Unknown Sex and Gender Information Value Date Recorded Sex Assigned at Not on file Legal Sex Female 3:37 AM SALES OFFICE MANAGER Gender Identity Female 01/28/2024 11:49 PM CDT Sexual Orientation Straight 08/12/2022 12 :04 PM CDT documented as of this encounter Last Filed Vital Signs Vital Sign Reading Time Taken Comments Blood Pressure 120/66 01/24/2021 8:23 AM CDT Pulse 76 01/24/2021 8:23 AM CDT Temperature - - Respiratory Rate - - Oxygen Saturation 99% 01/24/2021 8:23 AM CDT Inhaled Oxygen Concentration - - Weight 69.9 kg (154 lb 3.2 oz) 01/24/2021 8:23 A M CDT Height 160 cm (5' 3 ) 01/24/2021 8:23 AM CDT Body Mass Index 27.32 01/24/2021 8:23 AM CDT documented in this encounter Progress Notes * Sarah Vo, RAYNE - 01/24/2021 8:30 AM CDT Images from the original note were not included. [facility] Cardiology [address] [place] [address] Date of Visit: 01/24/2021 Patient ID: Maggie Erazo [id number] Chief Complaint: Maggie Erazo is a 80 y.o. female who is an established patient of Dr. Rascon with a history of coronary artery calcification coming to the office for 5 month follow-up. History of Present Illness: Maggie Erazo is a 80 y.o. female [...] COVID vaccine a couple of weeks ago. Records that I personally reviewed on the day of this visit include: (the interpretation is outlined in the HPI above) 09/23/[address] Rascon I have also reviewed: allergies, current medications, past family history, past medical history, past social history, past surgical history and problem list Review of Systems Constitution: Positive for malaise/fatigue. Negative for diaphoresis, fever, weight gain and weightloss. HENT: Negative for hearing loss. Eyes: Negative for visual disturbance. Cardiovascular: Negative for chest pain, claudication, leg swelling, orthopnea, palpitations, paroxysmal nocturnal dyspnea and syncope. Respiratory: Positive for shortness of breath. Negative for cough, hemoptysis, snoring and wheezing. Hematologic/Lymphatic: Bruises/bleeds easily. Skin: Negative for poor wound healing and rash. Musculoskeletal: Positive for joint pain and myalgias. Gastrointestinal: Negative for heartburn, nausea and vomiting. Genitourinary: Negative for hematuria. Neurological: Negative for dizziness, headaches and light-headedness. Psychiatric/Behavioral: Negative for depression. The patient is not nervous/anxious. Vital Signs: BP 120/66 (BP Location: Left arm, Patient Position: Sitting) Pulse 76 Ht 160 cm (5' 3 ) Wt 69.9 kg (154 lb 3.2 oz) SpO2 99% BMI 27.32 kg/m?? Physical Exam Constitutional: She is oriented to person, place, and time. She appears well- developed and well-nourished. No distress. HENT: Head: Normocephalic and atraumatic. Nose: Nose normal. Wearing a mask Eyes: Pupils are equal, round, and reactive to light. Conjunctivae and EOM are normal. No scleral icterus. Neck: No JVD present. No tracheal deviation present. Cardiovascular: Normal rate, regular rhythm and normal heart sounds. No murmur heard. Pulmonary/Chest: Effort normal and breath sounds normal. No respiratory distress. Abdominal: Soft. Bowel sounds are normal. There is no abdominal tenderness. Musculoskeletal: Cervical back: Normal range of motion. Comments: Trace bilateral nonpitting pretibial edema Neurological: She is alert and oriented to person, place, and time. Skin: Skin is warm and dry. Psychiatric: She has a normal mood and affect. Allergies Allergen Reactions ??? Adhesive Tape-Silicones Hives ??? Ezetimibe Muscle pain ??? Simvastatin Muscle pain ??? Codeine Other (See comments) Acute abd. pain Acute abd. pain, ??? Lfdyzup-Rbq-Lfr Reductase Inhibitors Other (See comments) Current Outpatient Medications: ??? artificial tears,hypromellose, 0.3 % drops, Administer into affected eye(s)., Disp: , Rfl: ??? ascorbic acid (ascorbic acid with darlene hips) 500 mg tablet, take 1 by Oral route once, Disp: 0,Rfl: 0 ??? aspirin 81 mg enteric coated tablet, Take 81 mg by mouth daily, Disp: , Rfl: ??? calcium carbonate (CALCIUM 600) 1,500 mg (600 mg of elemental calcium) tablet, take 1 by Oral route every day, Disp: 0, Rfl: 0 ??? cycloSPORINE (RESTASIS) 0.05 % ophthalmic emulsion, Administer 1 drop into both eyes 2 (two) times a day., Disp: , Rfl: ??? losartan (COZAAR) 25 mg tablet, take 1 tablet by oral route every day bedtime, Disp: 0, Rfl: 0 ??? losartan (COZAAR) 50 mg tablet, take 1 tablet by oral route every day, Disp: 0, Rfl: 0 ??? metFORMIN (GLUCOPHAGE) 500 mg tablet, take 1 tablet by oral route 2 times every day with morning and evening meals, Disp: 0, Rfl: 0 ??? montelukast (SINGULAIR) 10 mg tablet, Take 10 mg by mouth nightly., Disp: , Rfl: ??? multivitamin tablet tablet, take 1 tablet by oral route every day with food, Disp: 0, Rfl: 0 ??? nadoloL (CORGARD) 40 mg tablet, Take 40 mg by mouth daily, Disp: , Rfl: ??? omeprazole (PriLOSEC) 20 mg capsule, Take 20 mg by mouth daily, Disp: , Rfl: No results found for: POTASSIUM, BUNSER, CREATININE, CHOL, TRIG, LDL, LDLCALC, HDL Assessment: Diagnoses and all orders for this visit: Coronary artery calcification seen on CT scan (Primary) Hypertension associated with diabetes (CMS/HCC) Plan/Recommendations: She has a history of coronary artery calcifications seen on CT. She is tolerating aspirin 81 mg daily with her largest meal. Lipids were checked at the last visit and were acceptable, although she has a history of statin intolerance and is not on a statin. I reviewed the signs and symptoms of angina with her so she would recognize this if it occurred. Blood pressure is controlled with losartan and nadolol. A recent hemoglobin a1c was reasonable and she remains on metformin. Return to the office to see Dr. Rascon in 6 months. Call us sooner with questions or concerns, particularly recurrence of dizziness or presyncope, recurrence of palpitations or new chest pain. LORRI French- Nurse Practitioner with [facility] This note is dictated and transcribed using [employer] Software. Strategic Planning Director variancesmay occur. Despite proofreading, typographical errors may occur. documented in this encounter Plan of Treatment Not on file documented as of this encounter Visit Diagnoses Diagnosis Coronary artery calcification seen on CT scan- Primary Hypertension associated with diabetes (HCC) Unspecified essential hypertension documented in this encounter Discontinued Medications Medication Sig Discontinue Reason Start Date End Da te fluticasone (FLONASE) 50 mcg/actuation nasal spray Administer 1 spray into each nostril daily. Therapy completed 01/24/2021 polycarbophil (FIBERCON) 625 mg tablet Take 625 mg by mouth daily. Therapy completed 01/24/2021 documented as of this encounter Care Teams Consulting Property Manager Relationship Specialty Start Date End Date Karin Cordoba NP PCP - General Nurse Practitioner 08/20/17 08/29/23 documented as of this encounter
--- OUTSIDE RECORDS SUMMARY | 2024-09-25 22:00 | XMS_ITS | Encounter Summary ---
Author Organization [facility] Facility Care Team Providers Care Collective Bargaining Specialist Name Role Phone Unavailable Primary Care Provider Unavailabl e Encounter Details Date Type Department Care Team (Late st Contact Info) Description 07/26/2007 9:34 AM CDT - 07/26/2007 4:00 PM CDT Hospital Encounter [facility] Jeff Sewell MD [address] [place] [address] DR VINCENT [address] [place] [address] Social History Tobacco Use Types Packs/Day Years Used Date Smoking Tobacco: Never Assessed Comments Unknown Sex and Gender Information Value Date Recorded Sex Assigned at Not on file Legal Sex Female 3:37 AM PATENT ENGINEER Gender Identity Female 01/28/2024 11:49 PM CDT Sexual Orientation Straight 08/12/2022 12 :04 PM CDT documented as of this encounter Plan of Treatment Not on file documented as of this encounter Visit Diagnoses Not on filedocumented in this encounter
--- OUTSIDE RECORDS SUMMARY | 2024-09-25 22:00 | XMS_ITS | Encounter Summary ---
Author Organization [facility] Healthcare Address [address] [place] [address] Care Team Providers Care Woodwork Teacher Name Role Phone Karin Cordoba NP Primary Care Provider [phone] Reason for Visit * MRI/CAT/PET Scan (Routine) - Closed Specialty Diagnoses / Procedures Referred By Contac t Referred To Contact Diagnoses Chronic sinusitis, unspecified Procedures Neuro CT Outside Reference Samir Khan MD [address] [place] [address] Phone: tel: fax: Karin Cordoba NP [address] [place] [address] [place] [address] Phone: tel: fax: Referral ID Status Reason Start Date Expiration Date Visits Re quested Visits Authorized [id number] Closed 08/16/2023 09/14/2024 1 1 Encounter Details Date Type Department Care Team (Latest Contact Info) Description 08/16/2023 4:58 PM STRUCTURAL METAL FABRICATOR APPRENTICE - 08/16/2023 11:59 PM STRUCTURAL METAL FABRICATOR APPRENTICE Hospital Encounter [facility] [address] [place] [address] Discharge Disposition: Discharge to home or self care Social History Tobacco Use Types Packs/Day Years Used Date Smoking Tobacco: Never Smokeless Tobacco: Never Alcohol Use Standard Drinks/Week Comments No 0 (1 standard drink = 0.6 oz pur e alcohol) Comments Unknown Sex and Gender Information Value Date Recorded Sex Assigned at Not on file Legal Sex Female 3:37 AM STRUCTURAL METAL FABRICATOR APPRENTICE Gender Identity Female 01/28/2024 11:49 PM CDT Sexual Orientation Straight 08/12/2022 12 :04 PM CDT documented as of this encounter Medications at Time of Discharge artificial tears,hypromello se, 0.3 % dropsIndications :Dry Eye Administer 1 drop into both eyes daily as needed ascorbic acid (ascorbic acid with darlene hips) 500 mg tablet take 1 by Oral route once 0 0 02/19/2015 aspirin 81 mg enteric coated tabletIndication s:prevention [...] 1 tablet (100 mcg total) by mouth disbursement clerk before breakfast 07/31/2021 losartan (COZAAR) 50 mg tablet take 1 [...] (20 mg total) by mouth every morning budesonide (PULMICORT) 0.5 mg/2 mL nebulizer solution Mix 1 capsule/ampule in 250 mL of saline irrigations ([email or web address] Sinus Rinse Bottle) and irrigate each nostril with half of the bottle twice daily. 120 mL 6 08/16/2023 4 losartan (COZAAR) 25 mg tablet take 1 tablet by oral route every day bedtime 0 0 06/22/2016 4 pediatric pphpcpju-zxsu-gr n tablet,chewable Take by mouth daily 4 documented as of this encounter Discharge Disposition Disposition Code Departure Means Destination Discharge to home or self care documented in this encounter Plan of Treatment Not on file documented as of this encounter Procedures Procedure Name Priority Date/Time Associated Diagnosis Comments NEURO CT OUTSIDE REFERENCE Routine 08/16/2023 4:58 PM STRUCTURAL METAL FABRICATOR APPRENTICE documented in this encounter Results * Neuro CT Outside Reference (08/16/2023 4:58 PM STRUCTURAL METAL FABRICATOR APPRENTICE) Impressions [facility] - 08/16/2023 4:58 PM STRUCTURAL METAL FABRICATOR APPRENTICE These images are for Reference purposes only and have not been reviewed by [facility]. ??There will be no report generated by a [facility] Radiologist. Narrative RAD_P[facility] - 08/16/2023 4:58 PM STRUCTURAL METAL FABRICATOR APPRENTICE EXAMINATION: ??Images For Reference Purposes Only us Samir Khan MD IMG CT PROCEDURES Final Result [facility] documented in this encounter Visit Diagnoses Not on filedocumented in this encounter Care Teams Woodwork Teacher Relationship Specialty Start Date End Date Karin Cordoba NP PCP - General Nurse Practitioner 08/20/17 08/29/23 documented as of this encounter
--- OUTSIDE RECORDS SUMMARY | 2024-09-25 22:00 | XMS_ITS | Encounter Summary ---
Author Organization [facility] Healthcare Address [address] [place] [address] Care Team Providers Care System Support Developer Name Role Phone Karin Cordoba NP Primary Care Provider [phone] Isreal Lin MD Primary Care Provider [phone] Encounter Details Date Type Department Care Team (Late st Contact Info) Description 07/19/2023 Orders Only [facility] [address] [place] [id number] Scanning, Provider Social History Tobacco Use Types Packs/Day Years [...] on file Legal Sex Female 3:37 AM LOGISTICS TECH Gender Identity Female 01/28/2024 11:49 PM CDT Sexual Orientation Straight 08/12/2022 12 :04 PM CDT documented as of this encounter Plan of Treatment Not on file documented as of this encounter Procedures Procedure Name Priority Date/Time Associated Diagnosis Comments SCAN - RADIOLOGY/IMAGING 07/19/2023 documented in this encounter Results * SCAN - RADIOLOGY/IMAGING (07/19/2023) Anatomical Region Laterality Modality Other us Provider Scanning Final Result documented in this encounter Visit Diagnoses Not on filedocumented in this encounter Care Teams System Support Developer Relationship Specialty Start Date End Date Karin Cordoba NP PCP - General Nurse Practitioner 08/20/17 08/29/23 Isreal Lin MD PCP - General Family Practice 08/30/23 documented as of this encounter
--- OUTSIDE RECORDS SUMMARY | 2024-09-25 22:00 | XMS_ITS | Encounter Summary ---
Author Organization [facility] Healthcare Address [address] [place] [address] Care Team Providers Care Diesel Truck Driver Name Role Phone Isreal Lin MD Primary Care Provider [phone] Encounter Details Date Type Department Care Team (Late st Contact Info) Description 09/28/2023 Documentation [facility] Cardiology [address] [facility] [address] [place] [phone] Leonardo Medina MD [address] [place], [place] [id number] Social History Tobacco Use Types Packs/Day Years [...] on file Legal Sex Female 3:37 AM LAST MODEL DEPARTMENT SUPERVISOR Gender Identity Female 01/28/2024 11:49 PM CDT Sexual Orientation Straight 08/12/2022 12 :04 PM CDT documented as of this encounter Progress Notes * Leonardo Medina MD - 09/28/2023 4:12 PM CST AMBULATORY UNIVERSITY SERVICES PROGRAM ASSOCIATE REPORT Patient Name: Maggie Erazo Date of : 1940 Requesting Physician: Tarah Date of interpretation: 09/28/23 Type of monitor : 7 day event monitor Date of the study/Enrollment period: Initiated on 09/16/2023 Indication: Recent TIA/CVA, rule out atrial fib Quality of the study: Excellent Interpretation: The basic rhythm is sinus with first-degree AV block. The heart rates varied from aminimum of 55 to a maximum of 119 with an average rate of 72. There were no significant pauses and there were no examples of AV block of a higher grade than 1st degree. Supraventricular ectopic activity consisted of infrequent PACs with a PAC burden of less than 1% ofthe complexes. There were no other atrial arrhythmias and there were no examples of atrial fibrillation Ventricular ectopic activity was also rare consisting of single PVCs occurring at a rate of less than 1% of the total QRS complexes. All of these were single beats there were no ventricular couplets or runs. No symptoms were recorded during this 7 day monitor Conclusions: Essentially unremarkable 7 day mobile cardiac outpatient insole cementer with no evidence of atrial fibrillation being identified in this patient with recent TIA/CVA Voice recognition software was used to complete this document, therefore, marine tower operator variances may occur. Leonardo Medina MD [facility] 09/28/23 MODEL DEPARTMENT SUPERVISOR * David Rascon MD - 09/28/2023 4:12 PM CST No evidence for atrial fibrillation atrial flutter on heart monitor. Good news. Continue to monitorclinically. MODEL DEPARTMENT SUPERVISOR documented in this encounter Plan of Treatment Not on file documented as of this encounter Visit Diagnoses Not on filedocumented in this encounter Care Teams Diesel Truck Driver Relationship Specialty Start Date End Date Isreal Lin MD PCP - General Family Practice 08/30/23 documented as of this encounter
--- OUTSIDE RECORDS SUMMARY | 2024-09-25 22:00 | XMS_ITS | Encounter Summary ---
Author Organization [facility] Healthcare Address [address] [place] [address] Care Team Providers Care Surgical Dressing Maker Name Role Phone Isreal Lin MD Primary Care Provider [phone] Reason for Referral * Cardiology (Routine) - Closed Specialty Diagnoses / Procedures Referred By Contac t Referred To Contact Diagnoses Coronary artery calcification seen on CT scan Hypertension associated with diabetes (HCC) Mixed diabetic hyperlipidemia associated with type 2 diabetes mellitus (HCC) H/O: CVA (cerebrovascular accident) Systolic murmur Procedures Transthoracic Echo (TTE) Complete W Doppler/CF Diana Rascon MD Phone: tel: fax: [facility] Referral ID Status Reason Start Date Expiration Date Visits Re quested Visits Authorized [id number] Closed 08/30/2023 09/28/2024 1 1 TRUCTION SALES REPRESENTATIVE Reason for Visit * Reason Comments Follow-up 1 yr f/u Hypertension Statin myopathy Encounter Details Date Type Department Care Team (Latest Contact Info) Description 08/30/2023 10:00 AM CONSTRUCTION SALES REPRESENTATIVE Office Visit [facility] Cardiology [address] [facility] [address] [place] [address] Diana Rascon MD [address] [place] [address] [address] [place] [address] Coronary artery calcification seen on CT scan (Primary Dx); Hypertension associated with diabetes (HCC); Systolic murmur; Palpitations; Statin myopathy; 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) (HCC); H/O: CVA (cerebrovascular accident); Cirrhosis of liver without ascites, unspecified hepatic cirrhosis type (HCC) Social History Tobacco Use Types Packs/Day Years Used Date Smoking Tobacco: Never Smokeless Tobacco: Never Alcohol Use Standard Drinks/Week Comments No 0 (1 standard drink = 0.6 oz pur e alcohol) Comments Unknown Sex and Gender Information Value Date Recorded Sex Assigned at Not on file Legal Sex Female 3:37 AM CONSTRUCTION SALES REPRESENTATIVE Gender Identity Female 01/28/2024 11:49 PM CDT Sexual Orientation Straight 08/12/2022 12 :04 PM CDT documented as of this encounter Last Filed Vital Signs Vital Sign Reading Time Taken Comments Blood Pressure 120/70 08/30/2023 9:51 AM CONSTRUCTION SALES REPRESENTATIVE Pulse 76 08/30/2023 9:51 AM CONSTRUCTION SALES REPRESENTATIVE Temperature - - Respiratory Rate - - Oxygen Saturation 99% 08/30/2023 9:51 AM CONSTRUCTION SALES REPRESENTATIVE Inhaled Oxygen Concentration - - Weight 68.5 kg (151 lb) 08/30/2023 9:51 AM CONSTRUCTION SALES REPRESENTATIVE Height 160 cm (5' 3 ) 08/30/2023 9:51 AM CONSTRUCTION SALES REPRESENTATIVE Body Mass Index 26.75 08/30/2023 9:51 AM CONSTRUCTION SALES REPRESENTATIVE documented in this encounter Progress Notes * Diana Rascon MD - 08/30/2023 10:00 AM CST [facility] DATE OF VISIT: 08/30/2023 CHIEF COMPLAINT Chief Complaint Patient presents with Follow-up 1 yr f/u Hypertension Statin myopathy THERESA Maggie Erazo is a 82 y.o. 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 08/30/23 Admitted to [place] concern for TIA like sxs double vision [...] more a pparent lying down in bed. MEDICAL HISTORY Past Medical History: Diagnosis Date Allergic rhinitis Anemia 2021 Cirrhosis (HCC) 2014 Deep vein thrombosis (CMS/HCC) (HCC) 2013 Dental disease 1999 Diabetes mellitus (HCC) 2002 Dizziness 2003 Headache 2003 Hypertension Liver disease 2011 Nosebleed 2009 Sinusitis 2002 Tinnitus 2003 Social History Tobacco Use Smoking status: Never Smoker Smokeless tobacco: Never Used Substance Use Topics Alcohol use: No Family History Problem Relation Age of Onset Alzheimer's disease Father Alzheimer's disease; Kidney failure Father 91 Kidney failure; Cause of : Kidney failure Stroke Mother Stroke; Hypertension Mother Hypertension; MEDICATIONS HOME MEDICATIONS : artificial tears,hypromellose, 0.3 % drops ascorbic acid (ascorbic acid with darlene hips) 500 mg tablet aspirin 81 mg enteric coated tablet budesonide [...] mg tablet omeprazole (PriLOSEC) 20 mg capsule pediatric jsqkarno-heyg-dok tablet,chewable ALLERGIES Allergies Allergen Reactions Adhesive Tape-Silicones Hives Ezetimibe Muscle pain Simvastatin Muscle pain Codeine Other (See comments) Acute abd. pain Acute abd. pain, Loratadine-Pseudoephedrine Other (See comments) Ybjkuuc-Hag-Yyo Reductase Inhibitors Other (See comments) REVIEW OF [...] and are negative. PHYSICAL EXAM Vitals BP 120/70 (BP Location: Right arm, Patient Position: Sitting) Pulse 76 Ht 160 cm (5' 3 ) Wt 68.5 kg (151 lb) SpO2 99% BMI 26.75 kg/m?? Weight: 68.5 kg (151 lb) Height: 160 cm (5' 3 ) Body mass index is 26.75 kg/m??. Physical Exam Vitals reviewed. Constitutional: General: [...] visit with results is: Office Visit on 02/09/2022 Component Date Value Ref Range Status Cholesterol, POC 02/09/2022 175 mg/dL Final HDL, POC 02/09/2022 54 mg/dL Final Triglycerides, POC 02/09/2022 115 mg/dL Final LDL, Direct, POC 02/09/2022 98 mg/dL Final Chol/HDL Ratio, POC 02/09/2022 3.2 Final Non-HDL Cholesterol, POC 02/09/2022 121 mg/dL Final Cholesterol Total, POC 02/09/2022 175 mg/dL Final Results for orders placed or performed in visit on 02/09/22 POCT lipid panel Result Value Ref Range Cholesterol, POC 175 mg/dL HDL, POC 54 mg/dL Triglycerides, POC 115 mg/dL LDL, Direct, POC 98 mg/dL Chol/HDL Ratio, POC 3.2 Non-HDL Cholesterol, POC 121 mg/dL Cholesterol Total, POC 175 mg/dL [facility] records from 07/2023 consult notes, labs, ECG, MRI, CXR. Personally reviewed EKG and bloodwork/lipids. 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 No sxs suggestive of angina or claudication. No recurrent CP, previously isolated likely noncardiac. Aggressive atherosclerotic risk modification counseling performed. Continue current medical therapy. Notify office immediately with anginal symptoms. Monitor for bleeding. -Resume ASA 81mg daily. Precautions to take with full glass of water, food and remain upright for at least 60 minutes prior to lying down. -Remains on PPI. 2. BP controlled improved on repeat check goal <130/80mmHg. Monitor BP on routine basis. Call with readings. Continue consistent cardiovascular exercise, weight loss, medication compliance, and low-sodium diet. -Losartan 75mg daily (50mg in AM and 25mg PM), Nadolol 40mg daily. 3. DM managed by PCP Metformin 500mg BID 4. Intolerant to statins and Zetia, unfortunately. Lipids personally reviewed from 08/30/23 LDL 71,not ideally control goal LDL<70. Continue lifestyle and dietary modifications as counseled. -Not previously interested in PCSK9 inhibitor therapy did not tolerate Zetia 10mg daily and she hasbeen intolerant to statins. 5. Lifestyle modification counseling performed. Encouraged consistent exercise, reduction in caloric intake. 6. Following Aerospace Engineer Officer Armament at [facility], Dr. Vanegas. 7. Old CVA L frontal lobe by MRI 07/2023. Obtain 2D echocardiogram to assess for LV size/systolic and diastolic function, valve pathology, pulmonary pressures, and chamber size significant systolic murmur on exam suggestive of aortic stenosis. Recommendations to follow. Discussed heart monitor re palps and CVA hx. No prior dx of AFib/flutter. Offered 7 day holter but she would like to wait for now for a couple of weeks then schedule resume ASA 81mg daily. Over 50% of this visit counseling coronary calcifcation, HTN, lipids, medications, lifestyle modification. Follow up in the office in 2 months or sooner as needed. Thank you for allowing me the privilege of participating in the care this very pleasant patient. Please do not hesitate to contact me with any additional questions or concerns. Nicole Rascon MD, [facility] TRUCTION SALES REPRESENTATIVE documented in this encounter Miscellaneous Notes * Addendum Note - Lisha Eduardo MA - 08/30/2023 10:00 AM CSTAddended by: LISHA EDUARDO on: 08/30/2023 01:10 PM Modules accepted: Orders TRUCTION SALES REPRESENTATIVE documented in this encounter Plan of Treatment Not on file documented as of this encounter Procedures Procedure Name Priority Date/Time Associated Diagnosis Comments POCT LIPID PANEL Routine 08/30/2023 1:00 PM CONSTRUCTION SALES REPRESENTATIVE Coronary artery calcification seen on CT scan 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) (HCC) documented in this encounter Results * TRANSTHORACIC ECHO (TTE) COMPLETE W DOPPLER/CF WO CONTRAST (10/26/2023 12:23 PM CONSTRUCTION SALES REPRESENTATIVE) Anatomical Region Laterality Modality Ultrasound 10/26/2023 11:2 8 AM CONSTRUCTION SALES REPRESENTATIVE Narrative 10/26/2023 1:25 PM CONSTRUCTION SALES REPRESENTATIVE [facility] Cardiology [address] [facility] [address], [place] [address] [address], [place] [address] P:[phone] P:[phone] Echocardiographic Report Patient Name: MAGGIE ERAZO A : 1940 Study Date: 10/26/2023 11:28:35 AM Gender: F Tech: Location: [facility] Provider: DIANA RASCON ?Height(Cm): 160 BSA: 1.74 Weight(Kg): 68.5 Heart Rate: 66 Quality: Good Order Provider: DIANA RASCON PROCEDURES: Echocardiographic Report: Transthoracic echocardiogram with [...] FINDINGS: Interpretation Site: Exam was interpreted at [facility]. Left Ventricle: Normal left ventricular systolic function. [...] Signed By: Maxi Hutton MD 2023-10-26 13:24:53 CONSTRUCTION SALES REPRESENTATIVE Procedure Note Maxi Hutton MD - 10/26/2023 [facility] Cardiology [address] [facility] [address] [id number] [address] [facility] [address] [address] P:[phone] P:[phone] Echocardiographic Report Patient Name: MAGGIE ERAZO A : 1940 Study Date: 10/26/2023 11:28:35 AM Gender: F Tech: Location: [facility] Provider: DIANA RASCON Height(Cm): 160 BSA: 1.74 Weight(Kg): 68.5 Heart Rate: 66 Quality: Good Order Provider: DIANA RASCON PROCEDURES: Echocardiographic Report: Transthoracic echocardiogram with [...] FINDINGS: Interpretation Site: Exam was interpreted at [facility]. Left Ventricle: Normal left ventricular systolic function. [...] Signed By: Maxi Hutton MD 2023-10-26 13:24:53 CONSTRUCTION SALES REPRESENTATIVE us Diana Rascon MD CV ECHO PROCEDURES Final Result * POCT lipid panel (08/30/2023 1:00 PM CONSTRUCTION SALES REPRESENTATIVE) Cholesterol, POC 150 mg/dL Comment:GLU = 196 HDL, POC 50 mg/dL Triglycerides, POC 143 mg/dL LDL Cholesterol POC 71 mg/dL Chol/HDL Ratio, POC 1.4 Non-HDL Cholesterol, POC 100 mg/dL Cholesterol Total, POC 150 mg/dL Capillary blood 08/30/2023 1:00 PM CONSTRUCTION SALES REPRESENTATIVE us Diana Rascon MD POINT OF CARE TEST ORDER LUIS Final Result documented in this encounter Visit Diagnoses Diagnosis Coronary artery calcification seen on CT scan- Primary Hypertension associated with diabetes (HCC) Unspecified essential hypertension Systolic murmur Undiagnosed cardiac murmurs Palpitations 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) (HCC) H/O: CVA (cerebrovascular accident) Cirrhosis of liver without ascites, unspecified hepatic cirrhosis type (HCC) Coronary artery calcification seen on CT scan Hypertension associated with diabetes (HCC) Unspecified essential hypertension 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) (HCC) H/O: CVA (cerebrovascular accident) Systolic murmur Undiagnosed cardiac murmurs documented in this encounter Care Teams Surgical Dressing Maker Relationship Specialty Start Date End Date Isreal Lin MD PCP - General Family Practice 08/30/23 documented as of this encounter
--- OUTSIDE RECORDS SUMMARY | 2024-09-25 22:00 | XMS_ITS | Encounter Summary ---
Author Organization [facility] Address [address] [place] [address] Phone Care Team Providers Care Hospice Home Care Coordinator Name Role Phone Isreal Lin MD Primary Care Provider [phone] Reason for Visit * Reason Comments Follow-up Encounter Details Date Type Department Care Team (Late st Contact Info) Description 10/18/2023 3:00 PM EXERCISE SCIENCE INSTRUCTOR Office Visit [place] [facility] ([facility]) - [facility] ENT [address] [facility] 11th [place] [address] [place] [address] Samir Khan MD [address] [place] [address] Chronic sinusitis, unspecified location (Primary Dx); Coagulation defect, unspecified (HCC) Social History Tobacco Use Types Packs/Day [...] on file Legal Sex Female 3:37 AM EXERCISE SCIENCE INSTRUCTOR Gender Identity Female 01/28/2024 11:49 PM CDT Sexual Orientation Straight 08/12/2022 12 :04 PM CDT documented as of this encounter Progress Notes * Samir Khan MD - 10/18/2023 3:00 PM CST Images from the original note were not included. HISTORY OF PRESENT ILLNESS Ms. Erazo returns to clinic today for evaluation of ongoing, Severe: chronic sinusitis At the last visit, the treatment included: steroid nasal irrigations Since then, Ms. Erazo has experienced no change. Her CT sinus from today showed no improvement. Past Medical/Surgical History Past Medical History: Diagnosis [...] Refill artificial tears,hypromellose, 0.3 % drops Administer into affected eye(s). ascorbic acid (ascorbic acid with darlene hips) 500 mg tablet take 1 by Oral route once 0 0 aspirin 81 mg enteric coated tablet Take 1 tablet (81 mg total) by mouth daily budesonide (PULMICORT) 0.5 mg/2 mL nebulizer solution Mix 1 capsule/ampule in 250 mL of saline irrigations ([employer] Sinus Rinse Bottle) and irrigate each nostril [...] (325 mg total) by mouth everyother day levothyroxine (SYNTHROID) 100 mcg tablet 1 tablet (100 mcg total) losartan (COZAAR) 25 mg tablet take 1 [...] 1 tablet (40 mg total) by mouth daily omeprazole (PriLOSEC) 20 mg capsule Take 1 capsule (20 mg total) by mouth daily pediatric ifvvofgo-vtkb-jxa tablet,chewable Take by mouth daily No current facility-administered medications for this visit. Allergies: Adhesive tape-silicones, Ezetimibe, Simvastatin, Codeine, Loratadine- pseudoephedrine, and Ztwaymp-izr-ojs reductase inhibitors, Immunizations: There is no immunization history on file for this patient. PHYSICAL EXAMINATION: GENERAL: Well-developed, well-nourished. Voice quality is normal. NEURO/PSYCH: Cranial nerves II- XII are grossly normal. Affect is normal. Alert and oriented. Extraocular muscles are intact. HEAD/FACE: Normocephalic; atraumatic. No facial skin lesions. Facial strength is 5/5 and the face is symmetric. NOSE: External nose has no skin lesions. MUSCULOSKELATAL: Ambulates without difficulty. Neck full range of motion. RESPIRATORY: Breathing comfortably without audible wheeze, stertor or stridor. PROCEDURE: ASSESSMENT & PLAN: Problem List Items Addressed This Visit Chronic sinusitis - Primary Relevant Orders CBC with auto differential (Completed) aPTT (Completed) Protime-INR (Completed) Other Visit Diagnoses Coagulation defect, unspecified (HCC) Relevant Orders aPTT (Completed) Protime-INR (Completed) Functional Endoscopic Sinus Surgery Surgical Consent The patient has chronic sinusitis that has been refractory to maximal medical therapy including multiple rounds of oral and nasal steroids, and antibiotics. The role of nasal/sinus surgery including: Bilateral ENDOSCOPIC MAXILLARY ANTROSTOMY Bilateral ENDOSCOPIC TOTAL ETHMOIDECTOMY Bilateral ENDOSCOPIC SPHENOIDOTOMY Bilateral ENDOSCOPIC FRONTAL SINUS RECESS EXPLORATION was discussed in detail and the patient was allowed to ask any questions. Risks including bleeding,anesthesia, infection, pain, olfactory dysfunction, recurrence of symptoms, scarring, septal perforation, dry eye, tear duct injury, and injury to associated structures including the orbital and cranial cavity (including double vision, blindness, cerebrospinal fluid leak, intracranial bleeding), among others, were discussed as indicated and all questions answered. The patient has received a detailed brochure outlining risks/benefits as well as pre- and postoperative care instructions. The need for postoperative care including debridement and ongoing medical management was discussed. After cons idering risks, benefits, and alternatives, surgical management was elected. Samir Khan M.D., M.A., F.A.C.S. Healthcare Interpreter and Charge Lpn Rhinology and Anterior Skull Base Surgery [facility] [address] [address] - Office - Appointments - Clinical coordinator (Sheron Uribe LPN) - Clinical fax - Academic office fax EMAIL: [email or web address] CISE SCIENCE INSTRUCTOR documented in this encounter Plan of Treatment Not on file documented as of this encounter Results * Protime-INR (10/18/2023 4:00 PM EXERCISE SCIENCE INSTRUCTOR) PT 12.9 10.3 - 13.7 sec [facility] INR 1.13 0.90 - 1.20 [facility] Comment: Interpretive data Oral anticoagulant therapeutic ranges: Venous thromboembolism prophylaxis or treatment: 2.0-3.0 CARDIOLOGY Standard range: 2.0-3.0 High-intensity range: 2.5-3.5 Refer to indication-specific guidelines for appropriate target ranges for prosthetic heart valve replacement. Current interpretive data was last revised on 2019. Blood 10/18/2023 4:00 PM EXERCISE SCIENCE INSTRUCTOR 10/18/2023 4:31 PM EXERCISE SCIENCE INSTRUCTOR us Samir Khan MD LAB BLOOD ORDERABLES Fin al Result [facility] Department [place] [address] * aPTT (10/18/2023 4:00 PM EXERCISE SCIENCE INSTRUCTOR) aPTT 36 28 - 38 sec [facility] Comment: Interpretive Data Heparin therapeutic range: 66.0 - 100.0 seconds. Range based on correlation with therapeutic heparin activity range of 0.3 - 0.7 Units/mL. Current interpretive data was last revised on 2023. Blood 10/18/2023 4:00 PM EXERCISE SCIENCE INSTRUCTOR 10/18/2023 4:31 PM EXERCISE SCIENCE INSTRUCTOR Samir Khan MD LAB BLOOD ORDERABLES Fin al Result Performing Organization Address [facility] de Phone Number [facility] Department [place] [address] * (ABNORMAL) CBC with auto differential (10/18/2023 4:00 PM EXERCISE SCIENCE INSTRUCTOR) WBC 3.4(L) 3.8 - 9.9 K/cumm [facility] Hgb 12.2 11.9 - 15.5 g/dL [facility] Hct 36.1 35.6 - 45.5 % [facility] Plt 76(L) 150 - 400 K/cumm [facility] MPV 10.5 9.1 - 12.3 fL [facility] RBC 3.82(L) 3.90 - 5.20 M/cumm [facility] MCV 94.5 81.3 - 96.4 fL [facility] MCH 31.9 27.1 - 33.3 pg [facility] MCHC 33.8 32.3 - 35.7 g/dL [facility] RDW CV 14.1 11.1 - 14.9 % [facility] RDW SD 48.7(H) 35.7 - 48.1 fL [facility] NRBC abs 0.00 0.00 - 0.01 K/cumm [facility] Blood 10/18/2023 4:00 PM EXERCISE SCIENCE INSTRUCTOR 10/18/2023 4:24 PM EXERCISE SCIENCE INSTRUCTOR Samir Khan MD LAB BLOOD ORDERABLES Fin al Result Performing Organization Address [facility] Co de Phone Number [facility] Department [place] [address] documented in this encounter Visit Diagnoses Diagnosis Chronic sinusitis, unspecified location- Primary Coagulation defect, unspecified (HCC) documented in this encounter Care Teams Hospice Home Care Coordinator Relationship Specialty Start Date End Date Isreal Lin MD PCP - General Family Practice 08/30/23 documented as of this encounter
--- OUTSIDE RECORDS SUMMARY | 2024-09-25 22:00 | XMS_ITS | Encounter Summary ---
Author Organization [facility] Address [address] [place] [address] Phone Care Team Providers Care Bi Lead Name Role Phone Isreal Lin MD Primary Care Provider [phone] Encounter Details Date Type Department Care Team (Late st Contact Info) Description 10/20/2023 Telephone [facility] ([facility]) - [facility] ENT [address] [facility] 11th [place] [address] [place] [id number] Adelaida Sullivan Social History Tobacco Use Types Packs/Day Years [...] on file Legal Sex Female 3:37 AM FIELD INTERVIEWER Gender Identity Female 01/28/2024 11:49 PM CDT Sexual Orientation Straight 08/12/2022 12 :04 PM CDT documented as of this encounter Miscellaneous Notes * Telephone Encounter - Adelaida Sullivan - 11/04/2023 4:06 PM CST Patient returned call prefers [facility] location; elected for December 17, 2023. D INTERVIEWER * Telephone Encounter - Adelaida Sullivan - 10/20/2023 10:23 AM CST LVM for patient to call to schedule surgery. D INTERVIEWER * Telephone Encounter - Adelaida Sullivan - 10/20/2023 10:22 AM CST ----- Message from Sheron Uribe LPN sent at 10/18/2023 3:54 PM FIELD INTERVIEWER ----- Regarding: Dr. Khan surgery Prep for case is in chart. Post op apt needed 1.5 weeks after surgery. Thanks Sheron Monroe D INTERVIEWER documented in this encounter Plan of Treatment Not on file documented as of this encounter Visit Diagnoses Not on filedocumented in this encounter Care Teams Bi Lead Relationship Specialty Start Date End Date Isreal Lin MD PCP - General Family Practice 08/30/23 documented as of this encounter
--- OUTSIDE RECORDS SUMMARY | 2024-09-25 22:00 | XMS_ITS | Encounter Summary ---
Author Organization [facility] Address [address] [place] [address] Care Team Providers Care Commercial Leasing Manager Name Role Phone Karin Cordoba NP Primary Care Provider [phone] Reason for Visit * Reason Comments Follow-up 6 mo f/u. Sinus surg sherly scheduled for 08/25/22. Palpitations Hypertension Encounter Details Date Type Department Care Team (Latest Contact Info) Description 08/17/2022 9:30 AM BATTERY CHARGER TESTER Office Visit 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); Statin myopathy Social History Tobacco Use Types Packs/Day Years Used Date Smoking Tobacco: Never Smokeless Tobacco: Never Tobacco Cessation:Counseling Given: Not Answered Alcohol Use Standard Drinks/Week Comments No 0 (1 standard drink = 0.6 oz pur e alcohol) Comments Unknown Sex and Gender Information Value Date Recorded Sex Assigned at Not on file Legal Sex Female 3:37 AM BATTERY CHARGER TESTER Gender Identity Female 01/28/2024 11:49 PM CDT Sexual Orientation Straight 08/12/2022 12 :04 PM CDT documented as of this encounter Last Filed Vital Signs Vital Sign Reading Time Taken Comments Blood Pressure 126/60 08/17/2022 9:33 AM BATTERY CHARGER TESTER Pulse 67 08/17/2022 9:33 AM BATTERY CHARGER TESTER Temperature - - Respiratory Rate - - Oxygen Saturation 99% 08/17/2022 9:33 AM BATTERY CHARGER TESTER Inhaled Oxygen Concentration - - Weight 70.4 kg (155 lb 1.6 oz) 08/17/2022 9:33 A M BATTERY CHARGER TESTER Height 160 cm (5' 3 ) 08/17/2022 9:33 AM BATTERY CHARGER TESTER Body Mass Index 27.47 08/17/2022 9:33 AM BATTERY CHARGER TESTER documented in this encounter Progress Notes * David Rascon MD - 08/17/2022 9:30 AM CST [facility] DATE OF VISIT: 08/17/2022 CHIEF COMPLAINT Chief Complaint Patient presents with Follow-up 6 mo f/u. Sinus surgery scheduled for 08/25/22. Palpitations Hypertension HPI Maggie Erazo is a 81 y.o. [...] of stairs carrying boxes, painting all day. MEDICAL HISTORY Past Medical History: Diagnosis Date Hypertension Social History Tobacco Use Smoking status: Never [...] (RESTASIS) 0.05 % ophthalmic emulsion levothyroxine (SYNTHROID) 100 mcg tablet losartan (COZAAR) 25 mg tablet losartan (COZAAR) 50 mg tablet metFORMIN (GLUCOPHAGE) 500 mg tablet montelukast (SINGULAIR) 10 mg tablet multivitamin tablet tablet nadoloL (CORGARD) 40 mg tablet omeprazole (PriLOSEC) 20 mg capsule ALLERGIES Allergies Allergen Reactions Adhesive Tape-Silicones Hives Ezetimibe Muscle pain Simvastatin Muscle pain Codeine Other (See comments) Acute abd. pain Acute abd. pain, Fqgkojr-Rkd-Wwh Reductase Inhibitors Other (See comments) REVIEW OF [...] rash and suspicious lesions. Musculoskeletal: Positive for arthritis and joint pain. Negative for falls, muscle [...] and are negative. PHYSICAL EXAM Vitals BP 126/60 (BP Location: Right arm, Patient Position: Sitting) Pulse 67 Ht 160 cm (5' 3 ) Wt 70.4 kg (155 lb 1.6 oz) SpO2 99% BMI 27.47 kg/m?? Weight: 70.4 kg (155 lb 1.6 oz) Height: 160 cm (5' 3 ) Body mass index is 27.47 kg/m??. Physical Exam Vitals reviewed. Constitutional: General: She is not in acute distress. Appearance: Normal appearance. She is well-developed. She is not diaphoretic. Comments: Wearing a mask HENT: Head: Normocephalic and atraumatic. 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 No sxs suggestive of angina [...] AM and 25mg PM), Nadolol 40mg daily. Discussed may need to inc Losartan to 100mg daily if BP more consistently elevated. 3. DM managed by PCP 4. Intolerant to statins and Zetia, unfortunately. Lipids personally reviewed from 02/09/22 LDL 98, not ideally control goal LDL<70. Continue lifestyle and dietary modifications as counseled. -Not previously interested in PCSK9 inhibitor therapy did not tolerate Zetia 10mg daily 5. Lifestyle modification counseling performed. Weight loss, exercise, reduction in caloric intake. 6. Following Formulation Technician at [facility], Dr. Vanegas. -Monitor for palps or CP and notify office for recommendations as appropriate. No recurrent to date. Over 50% of this visit counseling coronary calcifcation, HTN, lipids, medications, lifestyle modification. Follow up in the office in 1 year or sooner as needed. Thank you for allowing me the privilege of participating in the care this very pleasant patient. Please do not hesitate to contact me with any additional questions or concerns. 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
--- OUTSIDE RECORDS SUMMARY | 2024-09-25 22:00 | XMS_ITS | Encounter Summary ---
Author Organization [facility] Address [address] [place] [address] Care Team Providers Care Creative Perfumer Name Role Phone Isreal Lin MD Primary Care Provider [phone] Encounter Details Date Type Department Care Team (Late st Contact Info) Description 10/18/2023 7:00 PM COD CLERK Lab [facility] Advanced Medicine [facility] ([facility]) [address] [place] [phone] Chronic sinusitis, unspecified location; Coagulation defect, unspecified (HCC) Social History Tobacco [...] on file Legal Sex Female 3:37 AM COD CLERK Gender Identity Female 01/28/2024 11:49 PM CDT Sexual Orientation Straight 08/12/2022 12 :04 PM CDT documented as of this encounter Plan of Treatment Not on file documented as of this encounter Procedures Procedure Name Priority Date/Time Associated Diagnosis Comments DIFFERENTIAL AUTO Routine 10/18/2023 4:0 0 PM COD CLERK Chronic sinusitis, unspecified location CBC WITH AUTO DIFFERENTIAL Routine 10/18/2023 4:00 PM COD CLERK Chronic sinusitis, unspecified location APTT Routine 10/18/2023 4:00 PM COD CLERK Chronic sinusitis, unspecified location Coagulation defect, unspecified (HCC) PROTIME-INR Routine 10/18/2023 4:00 PM COD CLERK Chronic sinusitis, unspecified location Coagulation defect, unspecified (HCC) documented in this encounter Results * Differential, auto (10/18/2023 4:00 PM COD CLERK) Neutrophil abs 1.9 1.5 - 6.5 K/cumm [facility] Imm gran abs 0.0 0.0 - 0.1 K/cumm [facility] Lymphocyte abs 1.0 0.8 - 3.3 K/cumm [facility] Monocyte abs 0.3 0.2 - 0.8 K/cumm [facility] Eosinophil abs 0.1 0.0 - 0.5 K/cumm [facility] Basophil abs 0.0 0.0 - 0.1 K/cumm [facility] Neutrophil pct 56.4 % [facility] Comment: Interpretive Data Percent cell count reference ranges are not reported, since discordance with absolute values may lead to misinterpretation of CBC data. Current Interpretive Data was last revised on 2018. Imm gran pct 0.3 % [facility] Comment: Interpretive Data Percent cell count reference ranges are not reported, since discordance with absolute values may lead to misinterpretation of CBC data. Current Interpretive Data was last revised on 2018. Lymphocyte pct 28.4 % [facility] Comment: Interpretive Data Percent cell count reference ranges are not reported, since discordance with absolute values may lead to misinterpretation of CBC data. Current Interpretive Data was last revised on 2018. Monocyte pct 10.1 % [facility] Comment: Interpretive Data Percent cell count reference ranges are not reported, since discordance with absolute values may lead to misinterpretation of CBC data. Current Interpretive Data was last revised on 2018. Eosinophil pct 3.6 % [facility] Comment: Interpretive Data Percent cell count reference ranges are not reported, since discordance with absolute values may lead to misinterpretation of CBC data. Current Interpretive Data was last revised on 2018. Basophil pct 1.2 % [facility] Comment: Interpretive Data Percent cell count reference ranges are not reported, since discordance with absolute values may lead to misinterpretation of CBC data. Current Interpretive Data was last revised on 2018. Blood 10/18/2023 4:00 PM COD CLERK 10/18/2023 4:24 PM COD CLERK Samir Khan MD LAB BLOOD ORDERABLES Fin al Result Performing Organization Address [facility] Co de Phone Number [facility] [place] [address] * (ABNORMAL) CBC with auto differential (10/18/2023 4:00 PM COD CLERK) WBC 3.4(L) 3.8 - 9.9 K/cumm [facility] Hgb 12.2 11.9 - 15.5 g/dL [facility] Hct 36.1 35.6 - 45.5 % [facility] Plt 76(L) 150 - 400 K/cumm [facility] MPV 10.5 9.1 - 12.3 fL [facility] RBC 3.82(L) 3.90 - 5.20 M/cumm [facility] MCV 94.5 81.3 - 96.4 fL [facility] MCH 31.9 27.1 - 33.3 pg [facility] MCHC 33.8 32.3 - 35.7 g/dL [facility] RDW CV 14.1 11.1 - 14.9 % [facility] RDW SD 48.7(H) 35.7 - 48.1 fL [facility] NRBC abs 0.00 0.00 - 0.01 K/cumm [facility] Blood 10/18/2023 4:00 PM COD CLERK 10/18/2023 4:24 PM COD CLERK Samir Khan MD LAB BLOOD ORDERABLES Fin al Result Performing Organization Address [facility] Co de Phone Number [facility] Department [place] [address] * aPTT (10/18/2023 4:00 PM COD CLERK) aPTT 36 28 - 38 sec [facility] Comment: Interpretive Data Heparin therapeutic range: 66.0 - 100.0 seconds. Range based on correlation with therapeutic heparin activity range of 0.3 - 0.7 Units/mL. Current interpretive data was last revised on 2023. Blood 10/18/2023 4:00 PM COD CLERK 10/18/2023 4:31 PM COD CLERK Samir Khan MD LAB BLOOD ORDERABLES Fin al Result Performing Organization Address [facility] de Phone Number [facility] [place] [address] * Protime-INR (10/18/2023 4:00 PM COD CLERK) PT 12.9 10.3 - 13.7 sec [facility] INR 1.13 0.90 - 1.20 [facility] Comment: Interpretive data Oral anticoagulant therapeutic ranges: Venous thromboembolism prophylaxis or treatment: 2.0-3.0 CARDIOLOGY Standard range: 2.0-3.0 High-intensity range: 2.5-3.5 Refer to indication-specific guidelines for appropriate target ranges for prosthetic heart valve replacement. Current interpretive data was last revised on 2019. Blood 10/18/2023 4:00 PM COD CLERK 10/18/2023 4:31 PM COD CLERK Samir Khan MD LAB BLOOD ORDERABLES Fin al Result Performing Organization Address [facility] de Phone Number [facility] [place] [address] documented in this encounter Visit Diagnoses Diagnosis Chronic sinusitis, unspecified location Coagulation defect, unspecified (HCC) documented in this encounter Care Teams Creative Perfumer Relationship Specialty Start Date End Date Isreal Lin MD PCP - General Family Practice 08/30/23 documented as of this encounter
--- OUTSIDE RECORDS SUMMARY | 2024-09-25 22:00 | XMS_ITS | Encounter Summary ---
Author Organization [facility] Healthcare Address [address] [place] [place] [address] Care Team Providers Care Physical Therapy Teacher Name Role Phone Isreal Lin MD Primary Care Provider [phone] Reason for Referral * MRI/CAT/PET Scan (Routine) - Closed Specialty Diagnoses / Procedures Referred By Contac t Referred To Contact Radiology Diagnoses Chronic sinusitis, unspecified location Procedures CT Sinus Stealth WO Contrast Samir Khan MD [address] [address] Phone: tel: fax: [address] [phone] Referral ID Status Reason Start Date Expiration Date Visits Re quested Visits Authorized [id number] Closed 08/16/2023 09/14/2024 1 1 OGRAPHER ANGIOGRAM Reason for Visit * MRI/CAT/PET Scan (Routine) - Closed Specialty Diagnoses / Procedures Referred By Contac t Referred To Contact Radiology Diagnoses Chronic sinusitis, unspecified location Procedures CT Sinus Stealth WO Contrast Samir Khan MD [address] [place] [address] Phone: tel: fax: [address] [phone] Referral ID Status Reason Start Date Expiration Date Visits Re quested Visits Authorized [id number] Closed 08/16/2023 09/14/2024 1 1 Encounter Details Date Type Department Care Team (Latest Contact Info) Description 10/18/2023 1:26 PM RADIOGRAPHER ANGIOGRAM - 10/18/2023 11:59 PM RADIOGRAPHER ANGIOGRAM Hospital Encounter [facility] [address] [place] [address] Saimr Khan MD [address] [place] [address] Chronic sinusitis, unspecified location Discharge Disposition: Discharge to home or self [...] on file Legal Sex Female 3:37 AM RADIOGRAPHER ANGIOGRAM Gender Identity Female 01/28/2024 11:49 PM CDT [...] 1 tablet (100 mcg total) by mouth patient insurance clerk before breakfast 07/31/2021 losartan (COZAAR) 50 [...] capsule/ampule in 250 mL of saline irrigations ([employer] Sinus Rinse Bottle) and irrigate each nostril with half of the bottle twice daily. 120 mL 6 08/16/2023 4 losartan (COZAAR) 25 mg tablet take 1 tablet by oral route every day bedtime 0 0 06/22/2016 4 pediatric yepuhwmf-pucu-rr n tablet,chewable Take by mouth daily 4 documented as of this encounter Discharge Disposition Disposition Code Departure Means Destination Discharge to home or self care documented in this encounter Plan of Treatment Not on file documented as of this encounter Procedures Procedure Name Priority Date/Time Associated Diagnosis Comments CT SINUS STEALTH WO CONTRAST Schedule Routine, Read Routine (OP Routine) 10/18/2023 1:48 PM RADIOGRAPHER ANGIOGRAM Chronic sinusitis, unspecified location documented in this encounter Results * CT Sinus Stealth WO Contrast (10/18/2023 1:48 PM RADIOGRAPHER ANGIOGRAM) Anatomical Region Laterality Modality Head N/A Computed Tomogra phy 10/18/2023 2:35 PM RADIOGRAPHER ANGIOGRAM Impressions 10/18/2023 2:41 PM RADIOGRAPHER ANGIOGRAM 1. ??Redemonstrated postoperative change consistent with left [...] Lizzy Phillip M.D. Narrative 10/18/2023 2:41 PM RADIOGRAPHER ANGIOGRAM EXAMINATION: CT of the paranasal sinuses without [...] the frontal lobes is normal. Procedure Note Lizzy Phillip MD - 10/18/2023 EXAMINATION: CT of the [...] location documented in this encounter Care Teams Physical Therapy Teacher Relationship Specialty Start Date End Date Isreal Lin MD PCP - General Family Practice 08/30/23 documented as of this encounter
--- OUTSIDE RECORDS SUMMARY | 2024-09-25 22:00 | XMS_ITS | Encounter Summary ---
Author Organization [facility] Healthcare Address [address] [place] [address] Care Team Providers Care Mutual Fund Accountant Name Role Phone Isreal Lin MD Primary Care Provider [phone] Reason for Visit * Auth/Cert (Routine) Specialty Diagnoses / Procedures Referred By Contac t Referred To Contact Diagnoses Chronic pansinusitis Chronic pansinusitis [J32.4] Procedures IL NSL/SINUS NDSC MAX ANTROST W/RMVL TISS MAX SINUS IL NASAL/SINUS NDSC W/RMVL TISS FROM FRONTAL SINUS IL NASAL/SINUS NDSC TOT W/SPHENDT W/SPHEN TISS RMVL ENDOSCOPIC SINUS SURGERY WITH NAVIGATION Samir Khan MD [address] [place] [address] Phone: tel: fax: Referral ID Status Reason Start Date Expiration Date Visits Re quested Visits Authorized [id number] 10/18/2023 1 1 Encounter Details Date Type Department Care Team (Late st Contact Info) Description 12/17/2023 10:10 AM LIAISON ENGINEER - 12/17/2023 1:05 PM LIAISON ENGINEER Surgery [facility] Operating Room [address] [address] Samir Khan MD [address] [place] [address] ENDOSCOPIC SINUS SURGERY WITH NAVIGATION Surgery Details Date/Time Status Location OR Service Patient Class Case Class Case Type Trauma Case? 12/17/2023 10:[address] [facility] OPERATING ROOM OR Otolaryngology Outpatient Elective Panel 1 Procedure LRB Anes Op Region Wound Class Comments ENDOSCOPIC SINUS SURGERY WITH NAVIGATION Bilateral General Face Class II - Clean Contaminated Surgeon Surgeon Role Service Panel Samri Khan MD Primary Otolaryngology 1 Konrad Damon MD Otolaryngolo gy 1 Case Notes Bilateral ENDOSCOPIC MAXILLARY ANTROSTOMYBilateral ENDOSCOPIC TOTAL ETHMOIDECTOMYBilateral ENDOSCOPIC SPHENOIDOTOMYBilateral ENDOSCOPIC FRONTAL SINUS RECESS EXPLORATIONImages: 10/18 documented in this encounter Social History Tobacco [...] on file Legal Sex Female 3:37 AM LIAISON ENGINEER Gender Identity Female 01/28/2024 11:49 PM CDT Sexual Orientation Straight 08/12/2022 12 :04 PM CDT documented as of this encounter Last Filed Vital Signs Vital Sign Reading Time Taken Comments Blood Pressure 179/81 12/17/2023 11:05 AM LIAISON ENGINEER Pulse 71 12/17/2023 11:05 AM LIAISON ENGINEER Temperature 36 ??C (96.8 ??F) 12/17/2023 7:57 AM LIAISON ENGINEER Respiratory Rate 33 12/17/2023 11:05 AM LIAISON ENGINEER Oxygen Saturation 98% 12/17/2023 11:05 AM LIAISON ENGINEER Inhaled Oxygen Concentration - - Weight 68.5 kg (151 lb) 12/17/2023 7:54 AM LIAISON ENGINEER Height 160 cm (5' 3 ) 12/17/2023 7:54 AM LIAISON ENGINEER Body Mass Index 26.75 12/17/2023 7:54 AM LIAISON ENGINEER documented in this encounter Discharge Instructions * Discharge Instructions* Dana Marinelli RN - 12/17/2023 7:28 AM LIAISON ENGINEER Discharge Instructions -Endoscopic Sinus Surgery Please Read and Follow These Instructions for the Best Outcomes Following Your Surgery! WHAT TO EXPECT FOLLOWING SURGERY: ? Bleeding - A drip from the nose and into the back of the throat is normal for the first two days following surgery. For flowing blood (like a faucet), contact the ENT Doctor radiation oncology therapist as noted below. ? Nasal congestion, fullness, [...] a visit. APPOINTMENTS: ? ENT Office Appointments ([facility]) Call our office or go to the Emergency Room immediately if you have any of the following: o Any vision problems/changes/eye swelling o Fever over 101.4 o Neck stiffness o Heavy or prolonged bright red bleeding from the nose ? Regular hours: to speak with my clinical coordinator, Sheron Uribe. ? After hours: and ask for the Ear, Nose and Throat (ENT) resident radiation oncology therapist. You have received anesthesia, therefore, for the next 24 hours and/or while taking narcotic pain medication; -Do NOT drive a vehicle -Do NOT drink alcohol -Do NOT make important personal or business decisions or sign legal documents. Examples of narcotic pain medication include Percocet, Oxycontin, [place], Hydrocodone, and Oxycodone. FAQs (frequently asked questions) [...] physical therapy, we are available to assist: [facility] STAR: [facility] [phone] [place] [phone] [facility] [phone] How are some things that you can [...] given by your doctor or other health care professionals. SON ENGINEER SON ENGINEER * Attachments The following attachments cannot be sent through Care Everywhere. * Oxycodone, Rapid Release (By mouth) (Azerbaijani) documented in this encounter Medications at Time [...] 1 tablet (100 mcg total) by mouth director of early childhood before breakfast 07/31/2021 losartan (COZAAR) 25 mg [...] mg total) by mouth every morning sod btmiy-uvwchu-egb eez bottle 2,300-700 mg kit Administer 2 sprays into each nostril 2 (two) times a day 1 kit 12/18/2023 budesonide (PULMICORT) 0.5 mg/2 mL nebulizer solution Mix 1 capsule/ampule in 250 mL of saline irrigations (Proginet Sinus Rinse Bottle) and irrigate each nostril with half of the bottle twice daily. 120 mL 6 08/16/2023 oxyCODONE (ROXICODONE) 5 mg immediate release tabletIndication s:Pain Take 1 tablet (5 mg total) by mouth every 4 (four) hours as needed for pain 10 tablet 12/17/2023 4 documented as of this encounter Ordered Prescriptions Prescription Sig Dispense Quantity Refills Last Filled Start Date End Date sod bccyt-tyaegg-whqtz z bottle 2,300-700 mg kit Administer 2 sprays into each nostril 2 (two) times a day 1 kit 12/18/2023 oxyCODONE (ROXICODONE) 5 mg immediate release tabletIndications: Pain Take 1 tablet (5 mg total) by mouth every 4 (four) hours as needed for pain 10 tablet 12/17/2023 4 documented in this encounter Discharge Disposition Disposition [...] for: Procedure(s): ENDOSCOPIC SINUS SURGERY WITH NAVIGATION SON ENGINEER Source Note - Jazmyn Massey MD - 12/10/2023 10:46 AM LIAISON ENGINEER Images from the original note were not included. Center for Preoperative Assessment and Planning Preoperative Evaluation Record Evaluation type/location: TPAP from [facility] Planned procedure site: [facility] OR Date: 12/10/23 NOTE: This note represents [...] veins) Last VTE date: 2013. Pertinent negatives: AR ; CABG ; valve replacement; atrial fibrillation; [...] provided by telephone and electronically sent via [employer]. Patient verbalized understanding of instructions. Blood bank [...] Please call the CPAP chart room clinician ([phone]) with any questions. TPAP assessment complete Preoperative evaluation performed by Krupa Sullivan NP on 12/10/23 at 10:47 AM . 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 pain, Loratadine-Pseudoephedrine Other (See comments) Gbajafm-Aui-Gpt Reductase Inhibitors Other (See comments) Med List Status: Nurse Complete Set By: Yessi Holman RN at 12/01/2023 9:14 AM Taking? Last Dose Start Date End Date Provider artificial tears,hypromellose, 0.3 % drops Past Month -- -- ProviderLia MD ascorbic acid (ascorbic acid with darlene [...] Medication protocol when under care of a MODEL MAKER PLASTIC Planned anesthesia: General Team communication plan: oral [...] and agree to proceed. All questions answered. SON ENGINEER SON ENGINEER SON ENGINEER documented in this encounter Miscellaneous Notes * Perioperative Nursing Note - Dana Marinelli RN - 12/17/2023 3:14 PM CST Pt cleared for discharge by Dr. Massey. Went over discharge instructions with patient and . SON ENGINEER * Op Note - Samir Khan MD [...] given and SCD boots were placed. The PowerCard fusion stereotactic CT image guidance system was then [...] participated in all portions of this case. SON ENGINEER * Brief Op Note - Konrad Damon MD - 12/17/2023 11:38 AM LIAISON ENGINEER Operative Progress Note Surgical Team: Surgeons and Role: * Samir Khan MD - Primary * Konrad Damon MD Anesthesiologist: Jazmyn Massey MD MODEL MAKER PLASTIC: Jackie Mendoza CRNA; Claudette Pennington CRNA Sex Worker Or Escort: Sheron Mensah RN Scrub: Gem Salazar ST [...] Samir Khan MD at 12/17/2023 1:41 PM LIAISON ENGINEER SON ENGINEER SON ENGINEER * Pre-Procedure Instructions - Krupa Sullivan NP - 12/10/2023 11:05 AM CST Center for Preoperative Assessment and Planning CPAP Clinic Location: [facility] The night before your surgery: * Do [...] with COVID-19. You test positive for COVID-19. SON ENGINEER * Perioperative Nursing Note - Yessi Holman RN - 12/01/2023 9:19 AM CST Center [...] 1 tablet (100 mcg total) by mouth director of early childhood before breakfast losartan (COZAAR) 25 mg tablet [...] not in Chart: Copy requested from family Communication/Battery Starter Needs Communication Needs: Glasses Assistive Devices/DME: Eyeglasses Discharge Planning Type of Residence: Private residence Living Arrangements: Spouse/significant other Support Systems: Spouse/significant other Patient expects to be discharged to:: Private residence REGULATORY AFFAIRS MANAGER NO ADDITIONAL COMMENTS/ FOLLOW UP SON ENGINEER * Pre-Procedure Instructions - Yessi Holman RN [...] remove nail coverings, artificial nails and nail israeli prior to the day of surgery. You should leave your valuables and any jewelry at home. No metal or piercings are allowed in the operating room. You should bring your insurance card, a photo ID (example: Route Salesman And Driver's License) and a method of payment for [...] Chart. If you are having surgery at [facility], please arrive on the day of surgery [...] Remove nail coverings, artificial nails and nail israeli. Place clean linens on your bed the [...] questions, please call the CPAP Staff at [phone], Wednesday-Wednesday 8am-4:30pm. All patients should read the below section: COVID 19 Updates & Visitor Policy: Please access [email or web address] for the most updated information. Information on [facility]: Please view [email or web address] (Patient & Visitor Information) for additional details regarding Advanced Directive forms, AWARE, directions, parking information, lodging, Internet access, dining and more. Information on [facility] or [facility] ([facility]): Please view [email or web address] (Patient and Visitor Information) for parking/directions and more. For MyChart information, to activate account or password recovery, please go to [email or web address] or call [phone] (toll-free: [phone]), Wed- Wednesday 8am-5pm. Information for Suicide Prevention: National Suicide Prevention Lifeline (2-501- 750-YYZQ (5612)) or call or text 482. Chat resources: [employer]. Surgery Times: For patients having surgery @ [facility], if your surgeon's office has not notified you of your surgery time by 2pm THE BUSINESS DAY BEFORE your surgery, please call the surgery center at [phone] and ask for your surgeon's office. The Center for Preoperative Assessment & Planning (CPAP) does not provide arrival times for the day of surgery or provide the duration of surgery. This information is provided by your surgeon'soffice or by the center where you are having surgery. We appreciate your understanding. SON ENGINEER documented in this encounter Plan of Treatment Not on file documented as of this encounter Procedures Procedure Name Priority Date/Time Associated Diagnosis Comments POCT GLUCOSE DEVICE Routine 12/17/2023 1:24 PM LIAISON ENGINEER SURGICAL PATHOLOGY Routine 12/17/2023 12:44 PM LIAISON ENGINEER Chronic pansinusitis AEROBIC AND ANAEROBIC CULTURE AND GRAM STAIN Routine 12/17/2023 11:43 AM LIAISON ENGINEER ENDOSCOPIC SINUS SURGERY WITH NAVIGATION 12/17/2023 11:08 AM LIAISON ENGINEER Chronic pansinusitis Case Notes Bilateral ENDOSCOPIC MAXILLARY ANTROSTOMYBilateral ENDOSCOPIC TOTAL ETHMOIDECTOMYBilateral ENDOSCOPIC SPHENOIDOTOMYBilateral ENDOSCOPIC FRONTAL SINUS RECESS EXPLORATIONImages: 10/18 POCT GLUCOSE DEVICE Routine 12/17/2023 11:02 AM LIAISON ENGINEER POCT GLUCOSE DEVICE Routine 12/17/2023 8:32 AM LIAISON ENGINEER documented in this encounter Results * POCT glucose (12/17/2023 1:24 PM LIAISON ENGINEER) Glucose, POC 147 70 - 199 mg/dL Comment: Interpretive Data Glucose is assumed to be non-fasting. Fasting Glucose reference ranges are: 0 - 150 years: ??70 mg/dL - 99 mg/dL Current interpretive data was last revised on 2014. POC Performer [id number] PAOLO EUCEDACH POC Device Number [id number] [facility] Blood 12/17/2023 1:24 PM LIAISON ENGINEER 12/17/2023 1:24 PM LIAISON ENGINEER Samir Khan MD LAB POCT ORDERABLES - DE VICE Final Result Performing Organization Address City/State/[facility] Co de Phone Number [facility] [address] [facility]. Department [place] [address] * Surgical pathology (12/17/2023 12:44 PM LIAISON ENGINEER) Tissue (Sinus contents) 12/17/2023 12:44 PM LIAISON ENGINEER Tissue (Sinus contents) 12/17/2023 12:44 PM LIAISON ENGINEER Narrative PATHOLOGY [facility] - 12/23/2023 1:10 PM CDT EPIC results best viewed via link to PDF [facility] of Surgical [place] [address] Note to Patients: This report may contain [...] PATHOLOGY REPORT FINAL Patient Name: ?? MAGGIE ERAZO Gender: ??F : ??1940 (Age: 83) Address: ??[address] [place] [id number] Hospital #: ??[id number] Taken:12/17/2023 Received:12/17/2023 Reported: 12/23/2023 Patient Type: BWC EP SAME Client ?BJW Service: Surgery Location: Physician(s): ??Cindy Haile M.D. Diagnosis: A. ??Paranasal sinus, right, excision [...] Jar 0. ?? rxr/12/20/2023 10:31 PA(s): Sue Decker, MS, PA(ASCP)CM By this signature, I attest that the above diagnosis is based upon my personal examination of the slides(and/or other material). Addenda/Procedures Microscopic slide review and interpretation for this case was performed at , Department of Surgical Pathology, [id number], ??[place], [place] ??[address] ?? CLIA # [id number] The performance characteristics of some immunohistochemical stains, fluorescence in-situ hybridization tests and immunophenotyping by flow cytometry cited in this report (if any) were determined by the Surgical Pathology and Flow Cytometry Departments at as part of an ongoing supplier quality specialist program and in compliance with federally [...] Surgical Pathology and Flow Cytometry Departments of . ??It has not been cleared or approved by the U. S. Food and Drug Administration. IMAGES AND SCANNED DOCUMENTS, IF INCLUDED, ONLY VIEWABLE IN PDF VERSION OF REPORT Samir Khan MD LAB PATHOLOGY ORDERABLES Final Result PATHOLOGY [facility] [phone] * (ABNORMAL) Aerobic and anaerobic culture and gram stain Wound Sinus (12/17/2023 11:43 AM LIAISON ENGINEER) Direct Specimen Exam Stain: Few polymorphonuclear leukocytes seen. Few Gram Positive Cocci Comment:Testing performed by : [facility], [address] [place] [address]., [id number] Report Final Report: Heavy growth of: Staphylococcus aureus, methicillin susceptible (.) PAOLO SONG Comment:Testing performed by : [facility], [address] [place] [address]., [id number] Organism STAPHYLOCOCCUS AUREUS, METHICILLIN SUSCEPTIBLE PAOLO SONG Wound (Sinus) 12/17/2023 11: 43 AM LIAISON ENGINEER 12/17/2023 3:25 PM LIAISON ENGINEER Narrative PAOLO SONG - 12/20/2023 11:37 AM CDT RIGHT SPHENOID Aerobic swab received. Please note anaerobes may not grow. [id number] Organism Antibiotic Method Susceptibility Staphylococcus aureus, methicillin susceptible Cefazolin (ALESSANDRO) INTERPRETATION Susceptible Staphylococcus aureus, methicillin susceptible Clindamycin (ALESSANDRO) INTERPRETATION Resistant Staphylococcus aureus, methicillin susceptible Erythromycin (ALESSANDRO) INTERPRETATION Resistant Staphylococcus aureus, methicillin susceptible Oxacillin (ALESSANDRO) INTERPRETATION Susceptible Staphylococcus aureus, methicillin susceptible Tetracycline (ALESSANDRO) INTERPRETATION Susceptible Staphylococcus aureus, methicillin susceptible Trimethoprim with Sulfamethoxazole (ALESSANDRO) INTERPRETATION Susceptible Staphylococcus aureus, methicillin susceptible Vancomycin (ALESSANDRO) INTERPRETATION 1 mcg/mL: Susceptible Samir Khan MD LAB MICROBIOLOGY - GENER AL ORDERABLES Final Result Performing Organization Address City/[facility] de Phone Number [facility] [address] [facility]. Department [place] [address] * POCT glucose (12/17/2023 11:02 AM LIAISON ENGINEER) [facility] Signature Glucose, POC 148 70 - 199 mg/dL Comment: Interpretive Data Glucose is assumed to be non-fasting. Fasting Glucose reference ranges are: 0 - 150 years: ??70 mg/dL - 99 mg/dL Current interpretive data was last revised on 2014. POC Performer [id number] PAOLO SONG POC Device Number [id number] PAOLO SONG Blood 12/17/2023 11:0 2 AM LIAISON ENGINEER 12/17/2023 11:02 AM LIAISON ENGINEER Samir Khan MD LAB POCT ORDERABLES - DE VICE Final Result Performing Organization Address City/State/[facility] de Phone Number [facility] [address] [facility] [place] [address] * POCT glucose (12/17/2023 8:32 AM LIAISON ENGINEER) Glucose, POC 142 70 - 199 mg/dL Comment: Interpretive Data Glucose is assumed to be non-fasting. Fasting Glucose reference ranges are: 0 - 150 years: ??70 mg/dL - 99 mg/dL Current interpretive data was last revised on 2014. POC Performer [id number] [employer] [facility] POC Device Number [id number] [employer] Blood 12/17/2023 8:32 AM LIAISON ENGINEER 12/17/2023 8:32 AM LIAISON ENGINEER Samir Khan MD LAB POCT ORDERABLES - DE VICE Final Result Performing Organization Address [facility] Phone Number [facility] [address] [facility] [employer] [place] [address] documented in this encounter Visit Diagnoses Diagnosis Chronic sinusitis- Primary Unspecified sinusitis (chronic) Chronic pansinusitis Other chronic sinusitis Chronic pansinusitis Other chronic sinusitis documented in [...] PACU., Indications: PainIndications:Pain Given 12/17/2023 2:28 PM LIAISON ENGINEER 500 mg ondansetron (ZOFRAN) injection 4 mg 4 mg, intravenous, Administer over 2 Minutes, Once as needed, nausea, vomiting, Starting on Wed12/17/23 at 1300, For 1 dose, Phase I, Proceed to prochlorperazine if ondansetron has been given within the last 6 hours. Given 12/17/2023 1:47 PM LIAISON ENGINEER 4 mg oxymetazoline (AFRIN) 0.05 % nasal spray As needed, Starting on Wed12/17/23 at 1154, Intra-Op Given 12/17/2023 11:54 AM LIAISON ENGINEER 30 mL sodium chloride 0.9% irrigation As needed, Starting on Wed12/17/23 at 1154, Intra-Op Given 12/17/2023 11:54 AM LIAISON ENGINEER 2,000 mL Surgical Site documented in this encounter Discontinued Medications Medication Sig Discontinue Reason Start Date End Da te losartan (COZAAR) 25 mg tablet take 1 tablet by oral route every day bedtime Alternate therapy 06/22/2016 12/01/2023 pediatric fisfgvxv-dpjw-ist tablet,chewable Take by mouth daily Therapy completed [...] Recently Administered Medications Times are shown in LIAISON ENGINEER. Continuous Medication Order 12/15/2023 12/16/2023 12/17/2023 Lactated [...] 0.4 mg/mL injection 0.04-0.4 mg 1 12/17/2023 prochlorperazine (COMPAZINE) injection 5 mg 1 12/17/2023 scopolamine patch 72 hour 1 patch 1 024 sodium chloride 0.9% flush 0.5-20 mL 1 05/2024 Discharge Count Last Ordered Date First Orde red Date DISCHARGE PATIENT 1 12/17/2023 documented in this encounter Care Teams Mutual Fund Accountant Relationship Specialty Start Date End Date Isreal Lin MD PCP - General Family Practice 08/30/23 documented as of this encounter
--- OUTSIDE RECORDS SUMMARY | 2024-09-25 22:00 | XMS_ITS | Encounter Summary ---
Author Organization [facility] Address [address] [place] [address] Phone Care Team Providers Care Machine Overhauler Name Role Phone Isreal Lin MD Primary Care Provider [phone] Reason for Visit * Reason Comments Chronic sinusitis Encounter Details Date Type Department Care Team (Late st Contact Info) Description 01/05/2024 1:40 PM CDT Office Visit [facility] ENT [address] [facility] [address] [place] [address] Samir Khan MD [address] [place] [address] Chronic sinusitis, unspecified location (Primary Dx); Iron deficiency anemia, unspecified iron deficiency anemia type; Secondary esophageal varices without bleeding (CMS/HCC) (HCC); [...] file Legal Sex Female 3:37 AM SALES ACCOUNT COORDINATOR Gender Identity Female 01/28/2024 11:49 PM CDT Sexual Orientation Straight 08/12/2022 12 :04 PM CDT documented as of this encounter Last Filed Vital Signs Vital Sign Reading Time Taken Comments Blood Pressure - - Pulse - - Temperature - - Respiratory Rate - - Oxygen Saturation - - Inhaled Oxygen Concentration - - Weight 68 kg (150 lb) 01/05/2024 1:35 PM CDT Pt states Height 160 cm (5' 3 ) 01/05/2024 1:35 PM CDT Pt states Body Mass Index 26.57 01/05/2024 1:35 PM CDT documented in this encounter Ordered Prescriptions Prescription Sig Dispense Quantity Refills Last Filled Start Date End Date mupirocin (BACTROBAN) 2 % ointment Apply topically 2 (two) times a day Dissolve one inch in nasal irrigation bottle and rinse twice daily. 22 g 3 01/05/2024 4 amoxicillin-clavul anate (Augmentin) 875-125 mg per tablet Take by mouth 2 (two) times a day for 21 days 42 tablet 01/05/2024 4 documented in this encounter Progress Notes * Samir Khan MD - 01/05/2024 1:40 PM CDT Images from the original note were not included. HISTORY OF PRESENT ILLNESS Ms. Erazo returns to clinic today for evaluation of ongoing, Severe: chronic pansinusitis At the last visit, the treatment included: surgery Since then, Ms. Erazo has experienced improvement in the bad smell in her sinuses. Past Medical/Surgical History Past Medical History: Diagnosis Date Allergic rhinitis Anemia 2021 Cirrhosis (HCC) 2015 Deep vein thrombosis (CMS/HCC) (HCC) 2014 Delayed [...] Current Outpatient Medications Medication Sig Dispense Refill amoxicillin-clavulanate (Augmentin) 875-125 mg per tablet Take by mouth 2 (two) times a day for 21 days 42 tablet 0 artificial tears,hypromellose, 0.3 % drops Administer 1 [...] 1 tablet (100 mcg total) by mouth earring maker before breakfast losartan (COZAAR) 25 mg tablet [...] (20 mg total) by mouth every morning oxyCODONE (ROXICODONE) 5 mg immediate release tablet Take 1 tablet (5 mg total) by mouth every 4 (four) hours as needed for pain 10 tablet 0 sod kwvjp-wperqo-borghw bottle 2,300-700 mg kit Administer 2 sprays into each nostril 2 (two) timesa day 1 kit 0 No current facility-administered medications for this visit. Allergies: Adhesive tape-silicones, Ezetimibe, Simvastatin, Codeine, Loratadine- pseudoephedrine, and Hoishld-nte-fzv reductase inhibitors, Immunizations: There is no immunization [...] for mucopurulence,polyps, mucosal lesions, and masses. Findings: Thick mucous drainage bilaterally RESULTS: none ASSESSMENT & PLAN: Problem List Items Addressed This Visit Chronic sinusitis - Primary Relevant Orders CBC with auto differential (Completed) Other Visit Diagnoses Iron deficiency anemia, unspecified iron deficiency anemia type We will get a CBC as she's had prior anemia and is feeling weak after surgery - we will also give her augmentin and mupirocin irrigations - f/u in one month. Samir Khan M.D., M.A., F.A.C.S. Hand Engraver and Social Services Rhinology and Anterior Skull Base Surgery [facility] [address] [place] [id number] - Office - Appointments - Clinical coordinator (Sheron Uribe LPN) - Clinical fax - Academic office fax EMAIL: [email or web address] documented in this encounter Plan of Treatment Not on file documented as of this encounter Results * (ABNORMAL) CBC with auto differential (01/05/2024 2:45 PM CDT) WBC 3.6(L) 3.8 - 9.9 K/cumm Hgb 10.7(L) 11.9 - 15.5 g/dL [facility] Hct 32.3(L) 35.6 - 45.5 % [facility] Plt 112(L) 150 - 400 K/cumm [facility] MPV 9.7 9.1 - 12.3 fL [facility] RBC 3.39(L) 3.90 - 5.20 M/cumm [facility] MCV 95.3 81.3 - 96.4 fL [facility] MCH 31.6 27.1 - 33.3 pg [facility] MCHC 33.1 32.3 - 35.7 g/dL [facility] RDW CV 13.4 11.1 - 14.9 % [facility] RDW SD 46.5 35.7 - 48.1 fL [facility] NRBC abs 0.00 0.00 - 0.01 K/cumm [facility] Blood 01/05/2024 2:45 PM CDT 01/05/2024 3:13 PM CDT Samir Khan MD LAB BLOOD ORDERABLES Fin al Result Performing Organization Address City/State/[facility] Phone Number [facility] [address] [facility]. [place] [address] documented in this encounter Visit Diagnoses Diagnosis Chronic sinusitis, unspecified location- Primary Iron deficiency anemia, unspecified iron deficiency anemia type Secondary esophageal varices without bleeding (CMS/HCC) (HCC) Hypertension associated with diabetes (HCC) Unspecified essential hypertension documented in this encounter Care Teams Machine Overhauler Relationship Specialty Start Date End Date Isreal Lin MD PCP - General Family Practice 08/30/23 documented as of this encounter
--- OUTSIDE RECORDS SUMMARY | 2024-09-25 22:00 | XMS_ITS | Encounter Summary ---
Author Organization [facility] Address [address] [place] [address] Care Team Providers Care Rn Neurosurgical Name Role Phone Isreal Lin MD Primary Care Provider [phone] Reason for Visit * Reason Comments Follow-up 2 mo Encounter Details Date Type Department Care Team (Late st Contact Info) Description 11/02/2023 10:30 AM PARACHUTE INSPECTOR Office Visit [facility] Cardiology [address] [place] [phone] Sarah Vo NP [address] [place] [address] H/O: CVA (cerebrovascular accident) (Primary Dx); Mild aortic stenosis; Preoperative cardiovascular examination Social History Tobacco Use Types [...] on file Legal Sex Female 3:37 AM PARACHUTE INSPECTOR Gender Identity Female 01/28/2024 11:49 PM CDT Sexual Orientation Straight 08/12/2022 12 :04 PM CDT documented as of this encounter Last Filed Vital Signs Vital Sign Reading Time Taken Comments Blood Pressure 132/58 11/02/2023 10:15 AM PARACHUTE INSPECTOR Pulse 69 11/02/2023 10:15 AM PARACHUTE INSPECTOR Temperature - - Respiratory Rate - - Oxygen Saturation 98% 11/02/2023 10:15 AM PARACHUTE INSPECTOR Inhaled Oxygen Concentration - - Weight 68.5 kg (151 lb) 11/02/2023 10:15 AM PARACHUTE INSPECTOR Height 160 cm (5' 3 ) 11/02/2023 10:15 AM PARACHUTE INSPECTOR Body Mass Index 26.75 11/02/2023 10:15 AM PARACHUTE INSPECTOR documented in this encounter Progress Notes * Sarah Vo NP - 11/02/2023 10:30 AM CST Images from the original note were not included. [facility] [address] [place] [address] Date of Visit: 11/02/2023 Patient ID: Maggie Erazo 1940 Chief Complaint Patient presents with Follow-up 2 mo Maggie Erazo is a 82 y.o. female who has an established patient of Dr. Rascon with a history ofCVA, HTN, coronary artery calcification, returning to the office for follow-up after echocardiogram. History of Present Illness: Maggie Erazo is a 82 y.o. female [...] scope8 weeks later ulcer gone. On Omeprazole. 09/23/20 Bran cleaning bathroom had dizziness spell felt like [...] boxes, painting all day. 08/30/23 Admitted to [place] concern for TIA like sxs double vision [...] ENT referred her to a surgeon at [place] and she has anticipating a sinus surgery. Records that I personally reviewed on the day of this visit include: (the interpretation is outlined in the HPI above) 08/30/[address] Rascon, 09/16/2023 Holter monitor report, 10/26/2023 echocardiogram report. I have also reviewed: allergies, current medications, past family history, past medical history, past social history, past surgical history and problem list. Medical History: Past Medical History: Diagnosis Date Allergic rhinitis Anemia 2021 Cirrhosis (HCC) 2015 Deep vein thrombosis (CMS/HCC) (HCC) 2013 Dental disease 1999 Diabetes mellitus (HCC) 2002 Dizziness 2003 Headache 2003 Hypertension Liver disease 2012 Nosebleed 2009 Sinusitis 2002 Tinnitus 2002 Past Surgical History: Procedure Laterality Date APPENDECTOMY 1961 BRONCHOSCOPY 2021 CHOLECYSTECTOMY 08/06/1962 COLONOSCOPY 2021 SINUS SURGERY 10/08/2021 Social History Tobacco Use Smoking Status Never Smokeless Tobacco Never Social History Tobacco Use Smoking status: Never Smokeless tobacco: Never Substance and Sexual Activity Drug use: Never Sexual activity: Not Currently Partners: Male Alcohol Use: Not on file Family History Problem Relation Age of Onset Alzheimer's disease Father Alzheimer's disease; Kidney failure Father 91 Kidney failure; Cause of : Kidney failure Stroke Mother Stroke; Hypertension Mother Hypertension; Review of Systems Constitutional: Negative for malaise/fatigue, weight gain and weight loss. HENT: Positive for congestion. Cardiovascular: Negative for chest pain, claudication, dyspnea on exertion, leg swelling, near-syncope, orthopnea, palpitations, paroxysmal nocturnal dyspnea and syncope. Respiratory: Negative for cough, shortness of breath and sleep disturbances due to breathing. Hematologic/Lymphatic: Negative for bleeding problem. Does not bruise/bleed easily. Neurological: Positive for headaches. Negative for dizziness and light-headedness. Vital Signs: BP 132/58 (BP Location: Left arm, Patient Position: Sitting) Pulse 69 Ht 160 cm (5' 3 ) Wt 68.5 kg (151 lb) SpO2 98% BMI 26.75 kg/m?? Physical Exam Constitutional: General: She is not in acute distress. Appearance: She is well-developed. HENT: Head: Normocephalic and atraumatic. Eyes: General: No scleral icterus. Conjunctiva/sclera: Conjunctivae normal. Neck: Vascular: No JVD. Trachea: No tracheal deviation. Cardiovascular: Rate and Rhythm: Normal rate and regular rhythm. Heart sounds: Murmur heard. Systolic murmur is present with a grade of 2/6 at the upper right sternal border. Pulmonary: Effort: Pulmonary effort is normal. No respiratory distress. Breath sounds: Normal breath sounds. Skin: General: Skin is warm and dry. Neurological: Mental Status: She is alert and oriented to person, place, and time. Psychiatric: Mood and Affect: Mood normal. Behavior: Behavior normal. Allergies Allergen Reactions Adhesive Tape-Silicones Hives Ezetimibe Muscle pain Simvastatin Muscle pain Codeine Other (See comments) Acute abd. pain Acute abd. pain, Loratadine-Pseudoephedrine Other (See comments) Tgrapxa-Vgk-Kmo Reductase Inhibitors Other (See comments) Current Outpatient Medications: artificial tears,hypromellose, 0.3 % drops, Administer into affected eye(s)., Disp: , Rfl: ascorbic acid (ascorbic acid with darlene hips) 500 mg tablet, take 1 by Oral route once, Disp: 0, Rfl: 0 aspirin 81 mg enteric coated tablet, Take 1 tablet (81 mg total) by mouth daily, Disp: , Rfl: budesonide (PULMICORT) 0.5 mg/2 mL nebulizer solution, Mix 1 capsule/ampule in 250 mL of saline irrigations ([employer] Sinus Rinse Bottle) and irrigate each nostril with half of the bottle twice daily., Disp: 120 mL, Rfl: 6 calcium carbonate (CALCIUM 600) 1,500 mg (600 mg of elemental calcium) tablet, take 1 by Oral routeevery day, Disp: 0, Rfl: 0 cycloSPORINE (RESTASIS) 0.05 % ophthalmic emulsion, Administer 1 drop into both eyes 2 (two) times a day, Disp: , Rfl: ferrous sulfate 325 mg (65 mg of elemental iron) tablet, Take 1 tablet (325 mg total) by mouth every other day, Disp: , Rfl: levothyroxine (SYNTHROID) 100 mcg tablet, 1 tablet (100 mcg total), Disp: , Rfl: losartan (COZAAR) 25 mg tablet, take 1 tablet by oral route every day bedtime, Disp: 0, Rfl: 0 losartan (COZAAR) 50 mg tablet, take 1 tablet by oral route every day, Disp: 0, Rfl: 0 metFORMIN (GLUCOPHAGE) 500 mg tablet, take 1 tablet by oral route 2 times every day with morning and evening meals, Disp: 0, Rfl: 0 multivitamin tablet tablet, take 1 tablet by oral route every day with food, Disp: 0, Rfl: 0 nadoloL (CORGARD) 40 mg tablet, Take 1 tablet (40 mg total) by mouth daily, Disp: , Rfl: omeprazole (PriLOSEC) 20 mg capsule, Take 1 capsule (20 mg total) by mouth daily, Disp: , Rfl: pediatric ksmfvhlq-pomv-kac tablet,chewable, Take by mouth daily (Patient not taking: Reported on 11/02/2023), Disp: , Rfl: No results found for: POTASSIUM , BUNSER , CREATININE , CHOL , TRIG , LDL , LDLCALC , HDL Lab Results Component Value Date WBC 3.4 (L) 10/18/2023 HGB 12.2 10/18/2023 HCT 36.1 10/18/2023 MCV 94.5 10/18/2023 No results found for this or any previous visit (from the past 4 hour(s)). Lab Results Component Value Date POCCHOL 150 08/30/2023 POCHDL 50 08/30/2023 POCTRIG 143 08/30/2023 POCLDL 71 08/30/2023 POCNONHDL 100 08/30/2023 POCCHLPL 150 08/30/2023 Assessment: Diagnoses and all orders for this visit: H/O: CVA (cerebrovascular accident) (Primary) Mild aortic stenosis Preoperative cardiovascular examination Plan/Recommendations: Last July she was evaluated for TIA symptoms and MRI showed an old left frontal lobe infarct. A 7 day Holter monitor showed no atrial arrhythmias. Echocardiogram was relatively unremarkable aside from mild aortic stenosis. The diagnosis of mild aortic stenosis was explained to the patient. No further workup is indicated at this time but we would re-evaluate by periodic echocardiogram, probably2 years from now, unless a change in her clinical status would indicate reassessing it sooner. Continue aspirin 81 mg daily for stroke risk reduction. Unfortunately she has a history of intolerance to statins and ezetimibe and has declined PCSK9 inhibitor. She is considering a sinus surgery that could have an operative time of 2 hours. From a cardiovascular perspective, she appears a reasonable candidate for sinus surgery and no further cardiac testingis indicated preoperatively. She would be considered a low risk for cardiovascular complications. Because of her history of CVA, continuation of aspirin perioperatively would be ideal, but if surgeon feels that her bleeding risk is prohibitive, aspirin could be held 7 days prior to the surgery. She typically has follow-up with Dr. Rascon every 6 months. Because of him leaving the practice wewill need to transition her care to another linter tender and she is going to call the office when she decides who she wants to transition her care to. She should have her next appointment in the timeframe of April, but we would reassess her sooner if indicated based on her clinical course. 11/02/2023 LORRI French- Nurse Practitioner with [facility] This note is dictated and transcribed using [employer] Software. Water Trainer variancesmay occur. Despite proofreading, typographical errors may occur. CHUTE INSPECTOR documented in this encounter Plan of Treatment Not on file documented as of this encounter Visit Diagnoses Diagnosis H/O: CVA (cerebrovascular accident)- Primary Mild aortic stenosis Aortic valve disorders Preoperative cardiovascular examination Pre-operative cardiovascular examination documented in this encounter Care Teams Rn Neurosurgical Relationship Specialty Start Date End Date Isreal Lin MD PCP - General Family Practice 08/30/23 documented as of this encounter
--- OUTSIDE RECORDS SUMMARY | 2024-09-25 22:02 | XMS_ITS | Encounter Summary ---
Author Organization [facility] Address [address] [place] [address] Care Team Providers Care Tub Washer Name Role Phone Unavailable Primary Care Provider Unavailabl e Encounter Details Date Type Department Care Team (Late st Contact Info) Description 05/30/2024 External Device Data STL ABSTRACTION Provider, Abstract NO ADDRESS ON FILE Social History Tobacco Use Types Packs/Day Years Used Date Smoking Tobacco: Never Alcohol Use Standard Drinks/Week Comments Never 0 (1 standard drink = 0.6 oz pur e alcohol) Sex and Gender Information Value Date Recorded Sex Assigned at Not on file Gender Identity Not on file Sexual Orientation Not on file documented as of this encounter Plan of Treatment Upcoming Encounters Date Type Department Care Team (Late st Contact Info) Description 11/13/2024 11:00 AM COILED TUBING SUPERVISOR Office Visit [facility] Oncology and Hematology - [place] [address] [facility] [address] [place] [address] Devin Mcintyre MD [address] [facility] [address] [place] [address] documented as of this encounter Visit Diagnoses Not on filedocumented in this encounter
--- OUTSIDE RECORDS SUMMARY | 2024-09-25 22:02 | XMS_ITS | Encounter Summary ---
Author Organization [facility] Address [address] [place] [address] Care Team Providers Care Staffing Account Manager Name Role Phone Unavailable Primary Care Provider Unavailabl e Encounter Details Date Type Department Care Team (Late st Contact Info) Description 05/31/2024 External Device Data STL ABSTRACTION Provider, Abstract [...] st Contact Info) Description 11/13/2024 11:00 AM WHARF LABORER Office Visit [facility] Oncology and Hematology - [place] [address] [facility] [address] [place] [address] Devin Mcintyre MD [address] [facility] [address] [place] [address] documented as of this encounter Visit Diagnoses Not on filedocumented in this encounter
--- OUTSIDE RECORDS SUMMARY | 2024-09-25 22:02 | XMS_ITS | Encounter Summary ---
Author Organization [facility] [employer] [facility] Address [address] [place] [address] Care Team Providers Care Bilingual Branch Manager Name Role Phone Unavailable Primary Care Provider Unavailabl e Reason for Visit * Reason Comments Cancer Follow Up Encounter Details Date Type Department Care Team (Late st Contact Info) Description 07/25/2024 2:45 PM CDT Office Visit [facility] Oncology and Hematology - [place] [address] [facility] [address] [place] [address] Devin Mcintyre MD [address] [facility] [address] [place] [address] Malignant neoplasm of right breast in female, estrogen receptor positive, unspecified site of breast (Primary Dx) Social History Tobacco Use Types Packs/Day Years Used Date Smoking Tobacco: Never Tobacco Cessation:Counseling Given: Not Answered Alcohol Use Standard Drinks/Week Comments Never 0 (1 standard drink = 0.6 oz pur e alcohol) Sex and Gender Information Value Date Recorded Sex Assigned at Not on file Gender Identity Not on file Sexual Orientation Not on file documented as of this encounter Last Filed Vital Signs Vital Sign Reading Time Taken Comments Blood Pressure 164/72 07/25/2024 3:21 PM CDT Pulse 73 07/25/2024 3:14 PM CDT Temperature 36.4 ??C (97.5 ??F) 07/25/2024 3:14 PM CD T Respiratory Rate 16 07/25/2024 3:14 PM CDT Oxygen Saturation 97% 07/25/2024 3:14 PM CDT Inhaled Oxygen Concentration - - Weight 69.2 kg (152 lb 9.6 oz) 07/25/2024 3:14 P M CDT Height - - Body Mass Index 27.03 05/25/2024 1:44 PM CDT documented in this encounter Progress Notes * Devin Mcintyre MD - 07/25/2024 5:08 PM CDT HEMATOLOGY / ONCOLOGY PROGRESS NOTE Patient Identification: Name: Maggie Erazo Age: 83 y.o. 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 CURRENT TREATMENT Expectant TREATMENT HISTORY Status post right-sided lumpectomy done on June 28, 2024 SUBJECTIVE Patient came to the office for follow-up visit after the lumpectomy. She is recovering well from the surgery. She has no new complaints. Review of system Constitutional: Patient did not mention fevers, sweats, fatigue, malaise, weight loss HEENT: Patient did not mention sinus congestion, hearing or vision problems Respiratory: Patient did not mention cough, dyspnea, wheeze Cardiovascular: Patient did not mention chest pain, exertional chest pressure/discomfort, nausea, syncope, shortness of breath GI: Patient did not mention constipation, diarrhea, dsyphagia, reflux symptoms, vomiting, melena : Patient did not mention dysuria, frequency, incontinence, urgency Integumentary system: no lymphadenopathy, sweats, flushing Musculoskeletal: Patient not mention: myalgia, arthralgia Neurological: Patient did not mention blurry or disturbed vision, numbness/weakness, dizziness Skin: No lumps, bumps or rashes. Objective: Vital signs in last 24 hours: As per nursing note Exam: General appearance: alert, cooperative, no distress, appears stated age Head: normocephalic, without obvious abnormality, atraumatic Eyes: conjunctivae/corneas clear, EOM's intact Ears: normal external ear canals AU Nose: Nares normal. Septum midline. Mucosa normal. No drainage or sinus tenderness Throat: Lips, mucosa, and tongue normal. Teeth and gums normal Neck: supple, symmetrical, trachea midline. Lungs: clear to auscultation bilaterally Heart: regular rate and rhythm, S1, S2 normal, no murmur, click, rub or gallop Abdomen: soft, non-tender. Bowel sounds normal. No masses, No organomegaly Extremities: extremities normal, atraumatic, no cyanosis or edema Skin: Skin color, texture, turgor normal. No rashes or lesions Lymph nodes: No lymphadenopathy Neuro: No obvious focal deficit PATH LABS @IMAGEIMP@ Assessment: Plan: There are no problems to display for this patient. T1 N0 M0 stage IA invasive ductal carcinoma of the right breast status post ultrasound-guided biopsy of the right breast 6 o'clock position mass done on May 17, 2024 came back positive for invasiveductal carcinoma ER/IL positive HER2/duncan negative and Ki-67 of 10%. Status post right-sided lumpectomy done on June 28, 2024. Pathology showed invasive ductal carcinoma 0.5 cm with negative margins. I have recommended to follow-up with radiation oncology for possible radiation therapy treatment. Patient is going to start endocrine therapy after possible radiation therapy treatment. Bone health. Patient is scheduled for bone density testing in 2 weeks. I will discuss the finding with her in 4 to 5 weeks and will make recommendation regarding endocrine therapy based on the bone health. Type 2 diabetes. Stable on metformin. Hypertension. Stable on losartan. ? TOBACCO COUNSELING She is not a tobacco/nicotine user. 07/25/2024 Devin Mcintyre MD documented in this encounter Plan of Treatment Upcoming Encounters Date Type Department Care Team (Late st Contact Info) Description 11/13/2024 11:00 AM COMMUNITY THEATER ACTOR Office Visit [facility] Oncology and Hematology - [place] [address] [facility] [address] [place] [address] Devin Mcintyre MD [address] [facility] [address] [place] [address] documented as of this encounter Visit Diagnoses Diagnosis Malignant neoplasm of right breast in female, estrogen receptor positive, unspecified site of breast- Primary documented in this encounter
--- OUTSIDE RECORDS SUMMARY | 2024-09-25 22:02 | XMS_ITS | Encounter Summary ---
Author Organization [facility] Address [address] [place] [address] Care Team Providers Care Concession Attendant Name Role Phone Unavailable Primary Care Provider [...] st Contact Info) Description 11/13/2024 11:00 AM ADDING MACHINE OPERATOR Office Visit [facility] Oncology and Hematology - [place] [address] [facility] [address] [place] [address] Devin Mcintyre MD [address] [facility] [address] [place] [address] documented as of this encounter Visit Diagnoses Not on filedocumented in this encounter
--- OUTSIDE RECORDS SUMMARY | 2024-09-25 22:02 | XMS_ITS | Encounter Summary ---
Author Organization [facility] Address [address] [place] [address] Care Team Providers Care Video And Sound Recorder Name Role Phone Unavailable Primary Care Provider Unavailabl e Encounter Details Date Type Department Care Team (Late st Contact Info) Description 07/04/2024 External Device Data STL ABSTRACTION Provider, Abstract [...] st Contact Info) Description 11/13/2024 11:00 AM AIRPLANE PILOT PHOTOGRAMMETRY Office Visit [facility] Oncology and Hematology - [place] [address] [facility] [address] [place] [address] Devin Mcintyre MD [address] [facility] [address] [place] [address] documented as of this encounter Visit Diagnoses Not on filedocumented in this encounter
--- OUTSIDE RECORDS SUMMARY | 2024-09-25 22:02 | XMS_ITS | Encounter Summary ---
Author Organization [facility] [employer] [facility] Address [address] [place] [address] Care Team Providers Care Access Clinician Name Role Phone Unavailable Primary Care Provider Unavailabl e Reason for Visit * Reason Comments Establish Care Encounter Details Date Type Department Care Team (Late st Contact Info) Description 05/25/2024 1:30 PM CDT Office Visit [facility] Oncology and Hematology - [place] [address] [facility] [address] [place] [address] Devin Mcintyre MD [address] [facility] [address] [place] [address] Malignant neoplasm of right breast [...] Sign Reading Time Taken Comments Blood Pressure 146/62 05/25/2024 1:48 PM CDT Pulse 65 05/25/2024 1:44 PM CDT Temperature 36.8 ??C (98.2 ??F) 05/25/2024 1:44 PM CD T Respiratory Rate 16 05/25/2024 1:44 PM CDT Oxygen Saturation 96% 05/25/2024 1:44 PM CDT Inhaled Oxygen Concentration - - Weight 67.1 kg (148 lb) 05/25/2024 1:44 PM CDT Height 160 cm (5' 3 ) 05/25/2024 1:44 PM CDT Body Mass Index 26.22 05/25/2024 1:44 PM CDT documented in this encounter Progress Notes * Devin Mcintyre MD - 05/25/2024 2:39 PM CDT Hematology-oncology consult Note Requesting Physician Sydnee Valadez MD Primary Care Physician No primary care provider on file. Problem list There is no problem list on file for this patient. Previous TREATMENT ? Measurable Disease ? Reason for Visit Maggie Erazo is a 83 y.o. female who was referred for consultation for breast cancer. History of present illness This is a pleasant 83-year-old female who was mammographically diagnosed with right-sidedbreast cancer when she had a screening mammogram done on January 18, 2024 that showed right breast asymmetry and further imaging studies were requested. Diagnostic mammogram and breast ultrasound was performed on February 16 that showed 3.6 x 3.7 x 3.9 mm irregular lesion at 6 o'clock position 3 cm from thenipple in the right breast. Patient had breast biopsy done on May 11, 2024 and came back positivefor invasive carcinoma ductal type. She has no previous history of breast cancer. There is a familyhistory of breast cancer in the daughter who was diagnosed at age of 60. She denies any chest pain and shortness of breath. Denies any abdominal pain. Weight and appetite stable. No other new complaints. Past Medical History Past Medical History: Diagnosis Date Breast cancer Diabetes mellitus Diverticulosis of colon Hypertension Surgical History Past Surgical History: Procedure Laterality Date HX APPENDECTOMY 1961 HX GALLBLADDER SURGERY 1961 HX WASH SINUS 2023 Medications Current Outpatient Medications Medication Sig Dispense Refill levothyroxine 100 mcg tablet Take 100 mcg by mouth daily. nadoloL (CORGARD) 40 mg tablet Take 40 mg by mouth daily. metFORMIN (GLUCOPHAGE XR) 500 mg Extended Release 24 hour tablet Take 500 mg by mouth daily. ascorbic acid, vitamin C, (VITAMIN C) 500 mg tablet Take 500 mg by mouth daily. CALCIUM CITRATE-VITAMIN D3 ORAL Take 600 mg by mouth. cycloSPORINE (RESTASIS) 0.05 % emulsion 1 Drop 2 times daily. losartan (COZAAR) 25 mg tablet Take 25 mg by mouth daily at bedtime. omeprazole (PriLOSEC) 20 mg Capsule, Delayed Release(E.C.) Take 20 mg by mouth daily. aspirin (ECOTRIN EC) 81 mg Tablet, Delayed Release (E.C.) Take 81 mg by mouth. No current facility-administered medications for this visit. Allergies Allergies Allergen Reactions Codeine Nausea and Vomiting and Shortness of Breath/Wheezing Acute abd. pain Acute abd. pain, Acute abd. pain, Acute abd. pain, Acute abd. pain Diphenhydramine Hcl Hives Kbjsnpr-Qgn-Ykw Reductase Inhibitors Muscle Pain and Rash Adhesive Tape-Silicones Other (See Comments) Immunizations: There is no immunization history on file for this patient. Family History Family History Problem Relation Name Age of Onset Skin Cancer Father Heart Disease Mother Diabetes Mother Diabetes Brother No Known Problems Sister Diabetes Child No Known Problems Child No Known Problems Child Social History Social History Tobacco Use Smoking status: Never Smokeless tobacco: Not on file Substance Use Topics Alcohol use: Never Review of Systems Constitutional: Patient did not mention fever; no night sweats; no anorexia; no weight loss; no fatique NEENT: Patient did not mention headache; no change in vision; no change in hearing; no sore throat;no dysphagia Respiratory: Patient did not mention shortness of breath; no pleuritic chest pain; no cough; no hemoptysis Cardiac: Patient did not mention cardiac-like chest pain; no palpitations; no orthopnea; no PND; noDOE Breasts: Patient did not mention tenderness; no masses GI: Patient did not mention abdominal pain; no nausea; no vomiting; no diarrhea; no hematochezia; no melena : Patient did not mention dysuria; no frequency; no hesitancy; no hematuria GRILL PREP COOK: Musculosketetal: Patient did not mention bone pain; no arthralgia; no joint swelling; no myalgia; Skin: Patient did not mention pruritis; no rash; no petechiae; no ecchymoses Endocrine: Patient did not mention polydipsia; no polyuria; no unusual weight gain Neuro: Patient did not mention headache; no change in vision; no sensory changes; no muscle weakness; no confusion; no seizures Psych: Patient did not mention anxiety; no depression; Physical Exam Vitals: As per nursing note Constitutional: Well developed, well nourished, no acute distress, non-toxic appearance Teeth and gum. No signs of infection or swelling. Eyes: PERRL, conjunctiva normal HEENT: Atraumatic, external ears normal, nose normal, oropharynx moist, no pharyngeal exudates. no sinus tenderness Neck- normal range of motion, no tenderness, supple Respiratory: No respiratory distress, normal breath sounds, no rales, no wheezing Breasts: Symmetric, No masses, No nipple discharge. Cardiovascular: Normal rate, normal rhythm, no murmurs, no gallops, no rubs GI: Soft, nondistended, normal bowel sounds, nontender, no splenomegaly, no hepatomegaly, no mass, no rebound, no guarding : No costovertebral angle tenderness Musculoskeletal: No edema, no tenderness, no deformities. Back- no tenderness Integument: Well hydrated, no rash, Digits and nails inspection normal Lymphatic: No lymphadenopathy noted Neurologic: Alert & oriented x 3, CN 2-12 normal, normal motor function, normal sensory function, no focal deficits noted Psychiatric: Speech and behavior appropriate ? labs No results found for this or any previous visit (from the past 24 hour(s)). Pathology ? Imaging & Other Studies Performance Status? Assessment / Plan: ? 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 Previously diagnostic mammogramand breast ultrasound was performed on February 16 that showed 3.6 x 3.7 x 3.9 mm irregular lesion at 6 o'clock position 3 cm from the nipple in the right breast. I have discussed the NCCN guidelines regarding management of early-stage breast cancer with patient and the in detail. She is waiting to have surgery scheduled and most likely she will have lumpectomy done. She has already been evaluated by radiation therapy. Based on the size of the tumor she would not be a candidate for Oncotype DX recurrence scoring for chemotherapy. We will see her back after final surgery to discuss final pathology report and further management. She will need endocrine therapy with anastrozole that will start after completion of radiation therapy treatment. I have answered all the questions to patient andthe satisfaction. Type 2 diabetes. Patient is on metformin. Hypertension. She is on losartan. Hypothyroidism. Patient is on levothyroxine. Thank you very much for allowing me to participate in Maggie Erazo's evaluation and management. Please feel free to contact if I can be of any further assistance in your patient???s care requiring hematology or oncology evaluation. Sincerely, ? ? Devin Mcintyre M.D. cell TOBACCO COUNSELING She is not a tobacco/nicotine user. Devin Mcintyre MD ,05/25/2024 2:39 PM ? Total time spent 60 minutes, two third of the total time spent counseling patient [id number]. CC:?Sydnee Valadez MD documented in this encounter Plan of Treatment Upcoming Encounters Date Type Department Care Team (Late st Contact Info) Description 11/13/2024 11:00 AM MILK PASTEURIZER Office Visit [facility] Oncology and Hematology - [place] [address] [facility] [address] [place] [address] Devin Mcintyre MD [address] [facility] [address] [place] [address] documented as of this encounter Visit Diagnoses Diagnosis Malignant neoplasm of right breast in female, estrogen receptor positive, unspecified site of breast- Primary documented in this encounter
--- OUTSIDE RECORDS SUMMARY | 2024-09-25 22:02 | XMS_ITS | Encounter Summary ---
Author Organization [facility] Address [address] [place] [address] Care Team Providers Care Lockstitch Pocket Setter Name Role Phone Unavailable Primary Care Provider Unavailabl e Encounter Details Date Type Department Care Team (Late st Contact Info) Description 06/01/2024 External Device Data STL ABSTRACTION Provider, Abstract [...] st Contact Info) Description 11/13/2024 11:00 AM ERP SPECIALIST Office Visit [facility] Oncology and Hematology - [place] [address] [facility] [address] [place] [address] Devin Mcintyre MD [address] [facility] [address] [place] [address] documented as of this encounter Visit Diagnoses Not on filedocumented in this encounter
--- OUTSIDE RECORDS SUMMARY | 2024-09-25 22:02 | XMS_ITS | Encounter Summary ---
Author Organization [facility] Address [address] [place] [address] Care Team Providers Care Horizontal Resaw Operator Name Role Phone Unavailable Primary Care [...] st Contact Info) Description 11/13/2024 11:00 AM FIELD ARTILLERY OPERATIONS MAN Office Visit [facility] Oncology and Hematology - [place] [address] [facility] [place] [facility] [address] [place] [address] Devin Mcintyre MD [address] [facility] [address] [place] [address] documented as of this encounter Visit Diagnoses Not on filedocumented in this encounter
--- OUTSIDE RECORDS SUMMARY | 2024-09-25 22:02 | XMS_ITS | Encounter Summary ---
Author Organization [facility] Address [address] [place] [address] Care Team Providers Care Youth Specialist Name Role Phone Unavailable Primary Care Provider Unavailabl e Encounter Details Date Type Department Care Team (Late st Contact Info) Description 06/07/2024 External Device Data STL ABSTRACTION Provider, Abstract [...] st Contact Info) Description 11/13/2024 11:00 AM INSPECTOR CHIEF Office Visit [facility] Oncology and Hematology - [place] [address] [facility] [address] [place] [address] Devin Mcintyre MD [address] [facility] [address] [place] [address] documented as of this encounter Visit Diagnoses Not on filedocumented in this encounter
--- OUTSIDE RECORDS SUMMARY | 2024-09-25 22:02 | XMS_ITS | Encounter Summary ---
Author Organization [facility] [employer] [facility] Address [address] [place] [address] Care Team Providers Care Assistant Program Director Name Role Phone Unavailable Primary Care Provider Unavailabl e Encounter Details Date Type Department Care Team (Late st Contact Info) Description 08/29/2024 4:30 PM PRINT SHOP ASSISTANT Telephone Check Up [facility] Oncology and Hematology - [place] [address] [facility] [address] [place] [address] Devin Mcintyre MD [address] [facility] [address] [place] [address] Social History Tobacco Use Types Packs/Day Years Used Date Smoking Tobacco: Never Alcohol Use Standard Drinks/Week Comments Never 0 (1 standard drink = 0.6 oz pur e alcohol) Sex and Gender Information Value Date Recorded Sex Assigned at Not on file Gender Identity Not on file Sexual Orientation Not on file documented as of this encounter Progress Notes * Devin Mcintyre MD - 08/29/2024 5:40 PM CST HEMATOLOGY / ONCOLOGY PROGRESS NOTE Patient Identification: Name: Maggie Erazo Age: 83 y.o. Sex: female : 1940 DIAGNOSIS T1 N0 M0 stage IA invasive ductal carcinoma of the right breast status post ultrasound-guided biopsy of the right breast 6 o'clock position mass done on May 17, 2024 came back positive for invasiveductal carcinoma ER/NV positive HER2/duncan negative and Ki-67 of 10%. CURRENT TREATMENT Expectant TREATMENT HISTORY Status post right-sided lumpectomy done on June 28, 2024 SUBJECTIVE This is a phone visit with patient to discuss the bone density. She is still waiting to start the radiation therapy treatment. No other new complaints. Review of system Constitutional: Patient [...] dizziness Skin: No lumps, bumps or rashes. 12 point review of system was reviewed Objective: Vital signs in last 24 hours: As per nursing note Exam: This is a phone visit [facility] Assessment: Plan: There are no problems to display for this patient. T1 N0 M0 stage IA invasive ductal carcinoma of the right breast status post ultrasound-guided biopsy of the right breast 6 o'clock position mass done on May 17, 2024 came back positive for invasiveductal carcinoma ER/NV positive HER2/duncan negative and Ki-67 of 10%. Status post right-sided lumpectomy done on June 28, 2024. Pathology showed invasive ductal carcinoma 0.5 cm with negative margins. Patient still waiting to start radiation therapy. I have recommended her to contact radiation therapy. We will see her back in about 2 months hopefully by then she will be finished with radiation therapy treatment and will start treatment with tamoxifen. Osteopenia. Bone density done on August 02 showed osteopenia. Will start tamoxifen after completion of radiation therapy. She will continue vitamin D. Hypertension. Stable on losartan. Type 2 diabetes. She will follow-up with the primary care physician. Please make appointment with radiation therapy treatment and follow-up with me in 2 months. 08/29/2024 Devin Mcintyre MD This encounter was completed via audio-only two way synchronous communication. Patient's identity confirmed yes Patient gave verbal consent to have these services billed to their insurance and expressed understanding that co-insurance and deductible may apply: yes Time spent by the provider delivering the care documented in this encounter 20 minutes. T SHOP ASSISTANT documented in this encounter Plan of Treatment Upcoming Encounters Date Type Department Care Team (Late st Contact Info) Description 11/13/2024 11:00 AM PRINT SHOP ASSISTANT Office Visit [facility] Oncology and Hematology - [place] [address] [facility] [address] [place] [address] Devin Mcintyre MD [address] [facility] [address] [place] [address] documented as of this encounter Visit Diagnoses Not on filedocumented in this encounter
--- OUTSIDE RECORDS SUMMARY | 2024-09-25 22:02 | XMS_ITS | Encounter Summary ---
Author Organization [facility] Address [address] [place] [address] Care Team Providers Care Senior Ui Ux Developer Name Role Phone Unavailable Primary Care [...] st Contact Info) Description 11/13/2024 11:00 AM AUTOMOTIVE PARTS COORDINATOR Office Visit [facility] Oncology and Hematology - [place] [address] [facility] 200 [place] [address] Devin Mcintyre MD [address] [facility] [address] [place] [address] documented as of this encounter Visit Diagnoses Not on filedocumented in this encounter
--- OUTSIDE RECORDS SUMMARY | 2024-09-25 22:02 | XMS_ITS | Encounter Summary ---
Author Organization [facility] Address [address] [place] [address] Care Team Providers Care National Sales Name Role Phone Unavailable Primary Care Provider [...] st Contact Info) Description 11/13/2024 11:00 AM AIR VALUE TESTER Office Visit [facility] Oncology and Hematology - [place] [address] [facility] [address] [place] [address] Devin Mcintyre MD [address] [facility] [address] [place] [address] documented as of this encounter Visit Diagnoses Not on filedocumented in this encounter
--- OUTSIDE RECORDS SUMMARY | 2024-09-25 22:02 | XMS_ITS | Encounter Summary ---
Author Organization [facility] Address [address] [place] [address] Care Team Providers Care Materials Engineer Name Role Phone Unavailable Primary Care [...] st Contact Info) Description 11/13/2024 11:00 AM SPECIAL WEAPONS AND TACTICS OFFICER Office Visit [facility] Oncology and Hematology - [place] [address] [facility] [place] [facility] [address] [place] [address] Devin Mcintyre MD [address] [facility] [address] [place] [address] documented as of this encounter Visit Diagnoses Not on filedocumented in this encounter
--- OUTSIDE RECORDS SUMMARY | 2024-09-25 22:02 | XMS_ITS | Encounter Summary ---
Author Organization [facility] Address [address] [place] [address] Care Team Providers Care Low Voltage Technician Name Role Phone Unavailable Primary Care Provider Unavailabl e Encounter Details Date Type Department Care Team (Late st Contact Info) Description 06/27/2024 External Device Data STL ABSTRACTION Provider, Abstract [...] st Contact Info) Description 11/13/2024 11:00 AM BOOT AND SHOE REPAIRMAN Office Visit [facility] Oncology and Hematology - [place] [address] [facility] 200 [place] [address] Devin Mcintyre MD [address] [facility] [address] [place] [address] documented as of this encounter Visit Diagnoses Not on filedocumented in this encounter
--- OUTSIDE RECORDS SUMMARY | 2024-09-25 22:02 | XMS_ITS | Clinical Summary ---
Author Organization [facility]ia [facility]ias [facility] Address [address] [place] [address] Care Team Providers Care Home Health Outreach Coordinator Name Role Phone Unavailable Primary Care Provider Unavailabl e Allergies Active Allergy Reactions Criticality Noted Date Comments Adhesive Tape-Silicones Other (See Comments) 11/17/2021 Codeine Nausea and Vomiting,Shortness of Breath/Wheezing High 04/21/2012 Acute abd. pain Acute abd. pain, Acute abd. pain, Acute abd. pain, Acute abd. pain Diphenhydramine Hcl Hives High 03/16/2013 Tywaewu-Djp-Zal Reductase Inhibitors Muscle Pain,Rash Medium 09/11/2019 Medications Medication Sig Dispensed Refills Start Date End Date Status levothyroxine 100 mcg tablet Take 100 mcg by mouth daily. 07/31/2021 Active losartan (COZAAR) 25 mg tablet Take 25 mg by mouth daily at bedtime. Active nadoloL (CORGARD) 40 mg tablet Take 40 mg by mouth daily. 04/30/2024 Active omeprazole (PriLOSEC) 20 mg Capsule, Delayed Release(E.C.) Take 20 mg by mouth daily. Active aspirin (ECOTRIN EC) 81 mg Tablet, Delayed Release (E.C.) Take 81 mg by mouth. Active metFORMIN (GLUCOPHAGE XR) 500 mg Extended Release 24 hour tablet Take 500 mg by mouth daily. Active ascorbic acid, vitamin C, (VITAMIN C) 500 mg tablet Take 500 mg by mouth daily. Active CALCIUM CITRATE-VITAMIN D3 ORAL Take 600 mg by mouth. Active cycloSPORINE (RESTASIS) 0.05 % emulsion 1 Drop 2 times daily. Active Active Problems No known active problems Encounters Date Type Department Care Team Description 08/29/2024 4:30 PM GORE SEAMER Telephone Check Up [facility] Oncology and Hematology - [place] [address] [place] [address] Devin Mcintyre MD 07/25/2024 2:45 PM CDT Office Visit [facility] Oncology and Hematology [facility] [address] [place] [address] Devin Mcintyre MD Malignant neoplasm of right breast in female, estrogen receptor positive, unspecified site of breast (Primary Dx) 07/04/2024 External Device Data STL ABSTRACTION Provider, Abstract 06/27/2024 External Device Data STL ABSTRACTION Provider, Abstract from Last 3 Months Family History Medical History Relation Name Comments Diabetes Brother Diabetes Child 1 No Known Problems Child 2 No Known Problems Child 3 Skin Cancer Father Diabetes Mother Heart Disease Mother No Known Problems Sister Relation Name Status Comments Brother Alive Child 1 Alive Child 2 Alive Child 3 Alive Father Mother Sister Alive Social History Tobacco Use Types Packs/Day Years Used Date Smoking Tobacco: Never Tobacco Cessation:Counseling Given: Not Answered Alcohol Use Standard Drinks/Week Comments Never 0 (1 standard drink = 0.6 oz pur e alcohol) Sex and Gender Information Value Date Recorded Sex Assigned at Not on file Gender Identity Not on file Sexual Orientation Not on file Last Filed Vital Signs Vital Sign Reading [...] oz) 07/25/2024 3:14 P M CDT Height 160 cm (5' 3 ) 05/25/2024 1:44 PM CDT Body Mass Index 27.03 05/25/2024 1:44 PM CDT Plan of Treatment Upcoming Encounters Date Type Department Care Team (Late st Contact Info) Description 11/13/2024 11:00 AM GORE SEAMER Office Visit [facility] Oncology and Hematology [place] [address] [place] [address] Devin Mcintyre MD [address] [facility] [address] [place] [address] Health Maintenance Due Date Last Done Comments PNEUMOCOCCAL VACCINE 65+ YEARS (1 of 2 - PCV) 11/21/18 48 DIABETES ANNUAL FOOT EXAM 1959 DIABETES ANNUAL RETINAL EXAM 1959 DIABETES MICROALBUMIN ANNUAL SCREEN 1959 LDL CHOLESTEROL ANNUAL 1959 ZOSTER VACCINE (1 of 2) 1991 OSTEOPOROSIS SCREENING 2006 RSV VACCINE (60+ or ) (1 - 1-dose 75+ series) 2016 DTAP/TDAP/TD VACCINES (2 - Td or Tdap) 10/11/2020 DIABETES HBA1C Q 6 MONTHS 02/26/2021 08/29/2020 INFLUENZA VACCINE (#1) 2024
--- OUTSIDE RECORDS SUMMARY | 2024-09-25 22:02 | XMS_ITS | Encounter Summary ---
Author Organization [facility] Address [address] [place] [address] Care Team Providers Care Full Time Paramedic Name Role Phone Unavailable Primary Care Provider [...] st Contact Info) Description 11/13/2024 11:00 AM CROSSING SUPERVISOR Office Visit [facility] Oncology and Hematology - Luis [address] [facility] [address] [place] [address] Devin Mcintyre MD [address] [facility] [address] [place] [address] documented as of this encounter Visit Diagnoses Not on filedocumented in this encounter
--- OUTSIDE RECORDS SUMMARY | 2024-09-25 22:02 | XMS_ITS | Encounter Summary ---
Author Organization [facility] Address [address] [place] [address] Care Team Providers Care Child Welfare Social Worker Name Role Phone Unavailable Primary Care [...] st Contact Info) Description 11/13/2024 11:00 AM SENIOR COLDFUSION DEVELOPER Office Visit [facility] Oncology and Hematology - Luis [address] [facility] [address] [place] [address] Devin Mcintyre MD [address] [facility] [address] [place] [address] documented as of this encounter Visit Diagnoses Not on filedocumented in this encounter
--- OUTSIDE RECORDS SUMMARY | 2024-09-25 22:02 | XMS_ITS | Encounter Summary ---
Author Organization [facility] Address [address] [place] [address] Care Team Providers Care Electronics Scale Tester Name Role Phone Unavailable Primary Care Provider [...] st Contact Info) Description 11/13/2024 11:00 AM INVENTORY ANALYST Office Visit [facility] Oncology and Hematology - Luis [address] [facility] [address] [place] [address] Devin Mcintyre MD [address] [facility] [address] [place] [address] documented as of this encounter Visit Diagnoses Not on filedocumented in this encounter
--- OUTSIDE RECORDS SUMMARY | 2024-09-25 22:02 | XMS_ITS | Encounter Summary ---
Author Organization [facility] Address [address] [place] [address] Care Team Providers Care Consumer Insights Specialist Name Role Phone Unavailable Primary Care Provider Unavailabl e Encounter Details Date Type Department Care Team (Late st Contact Info) Description 06/06/2024 External Device Data STL ABSTRACTION Provider, Abstract [...] st Contact Info) Description 11/13/2024 11:00 AM PLANTING MATERIAL CARRIER Office Visit [facility] Oncology and Hematology - Luis [address] [facility] [address] [place] [address] Devin Mcintyre MD [address] [facility] [address] [place] [address] documented as of this encounter Visit Diagnoses Not on filedocumented in this encounter
== END 2024-09-22 18:19 | disposition home or self-care (01) ==
PROVIDERS: Emergency Provider Emergency Medicine; PCP Family Medicine
DX: R11.2 Nausea with vomiting, unspecified (principal); R19.7 Diarrhea, unspecified; Z79.82 Long term (current) use of aspirin; E11.9 Type 2 diabetes mellitus without complications; E78.5 Hyperlipidemia, unspecified; I10 Essential (primary) hypertension; E03.9 Hypothyroidism, unspecified; K74.60 Unspecified cirrhosis of liver; M19.90 Unspecified osteoarthritis, unspecified site
CPT/HCPCS: 36415; 74177; 80053; 81003; 83690; 85025; 96361; 96374; 99284; A9270; J2405; J7030; Q9967

== ENCOUNTER 2025-02-01 09:32 | Outpatient (CLI) | payer MEDICARE, BC, SELFPAY ==
--- NOTE | ~2025-02-01 | MM_ITS ---
Corrected Report Wrong Visit # 02/07/2025 [facility] [address] This report was recreated on 02/07/2025. Original report was signed by Bobo Fairchild M.D. on 02/01/2025 10:47 CDT. EXAMINATION: MM diagnostic monty BI w renata HISTORY: Status post recent right lumpectomy for breast cancer. TECHNIQUE: Additional 3-D tomosynthesis images of the breasts were performed and synthetic 2-D images were generated. CAD analysis was submitted and interpreted. COMPARISON: None Comparison to multiple prior studies sequentially, with oldest reviewed study dated 12/28/2022. BREAST PARENCHYMAL COMPOSITION: Not dense: There are scattered areas of fibroglandular density. FINDINGS: There are surgical changes of the right breast, consistent with previous lumpectomy in the lower central right breast. There are no discrete mass is, suspicious calcifications to suggest malignancy. The left breast is stable without evidence for malignancy. IMPRESSION: 1. No evidence for malignancy. Distortion of the right breast, consistent with recent lumpectomy in the lower outer quadrant, middle third. 2. Routine yearly screening mammogram and regular clinical breast examination are recommended. BI-RADS Category 2: Benign finding(s). Reviewed, dictated and finalized at location A. [facility]
== END 2025-02-01 09:33 | disposition home or self-care (01) ==
LOC: MICIMG 09:34
PROVIDERS: PCP Family Medicine; Visit Provider Surgery
DX: R92.8 Other abnormal and inconclusive findings on diagnostic imaging of breast (principal)
CPT/HCPCS: 77062; 77066; G0279

== ENCOUNTER 2025-02-01 11:28 | Outpatient (CLI) | payer MEDICARE, BC, SELFPAY ==
[2025-02-01 12:14] LABS: Basophils Percent Auto 0.7 % (0.2-1.2); Eosinophils Absolute Auto 0.1 K/mm3 (0-0.3); Eosinophils Percent Auto 2.1 % (0-4.4); Hematocrit 31.6 % (37.0-47.0); Hemoglobin 10.5 g/dL (12.0-15.0); Immature Granulocyte Absolute 0.01 K/mm3 (0.00-0.031); Immature Granulocyte Percent A 0.3 % (0-0.5); Immature Platelet Fraction Pct 2.3 % (0.9-11.2); Lymphocytes Absolute Auto 0.76 K/mm3 (0.9-3.2); Lymphocytes Percent Auto 26.6 % (18.3-44.2); Mean Corpuscular HGB Conc 33.2 g/dl (32-36); Mean Corpuscular Hemoglobin 34.5 pg (26-34); Mean Corpuscular Volume 103.9 fl (80-100); Mean Platelet Volume 10.6 fl (7.4-10.4); Monocytes Absolute Auto 0.2 K/mm3 (0.1-0.6); Monocytes Percent Auto 8.4 % (2.6-8.5); Neutrophils Absolute Auto 1.8 K/mm3 (1.3-6.7); Neutrophils Percent Auto 61.9 % (45.5-73.1); Platelet Count Result 61 k/mm3 (150-375); Red Blood Count 3.04 M/mm3 (4.2-5.4); Red Cell Distribution Width 13.6 % (11.5-14.5); White Blood Count 2.9 K/mm3 (4.5-10.0)
[2025-02-01 12:27] LABS: Alanine Aminotransferase 30 U/L (6-35); Albumin Level 3.7 g/dL (3.5-5.1); Alkaline Phosphatase 74 U/L (38-126); Anion Gap 6 mmol/L (4-12); Aspartate Amino Transferase 44 U/L (14-36); Bilirubin,Total 1.7 mg/dL (0.2-1.3); Blood Urea Nitrogen 26 mg/dL (7-17); Calcium 8.9 mg/dL (8.4-10.2); Carbon Dioxide 26 mmol/L (22-30); Chloride 106 mmol/L (98-107); Estimated Glomerular Filt Rate 54; Glucose 122 mg/dL (65-110); Potassium 4.6 mmol/L (3.4-5.0); Sodium 138 mmol/L (137-145)
[2025-02-01 12:43] LABS: Hypochromasia 1+; Platelet Estimate Decreased (Adequate); Schistocytes None Seen
--- OUTSIDE RECORDS SUMMARY | 2025-02-01 13:04 | XMS_ITS | Encounter Summary ---
Author Organization [facility] Healthcare Address [address] [facility] [place] [address] Care Team Providers Care Investigative Shopper Name Role Phone Isreal Lin MD Primary Care Provider [phone] Encounter Details Date Type Department Care Team (Late st Contact Info) Description 01/16/2025 Results Follow-Up [facility] Medical Group Cardiology at [address] [place] [address] Maxi Hutton MD [address] [address] Social History Tobacco Use Types Packs/Day Years [...] on file Legal Sex Female 3:37 AM SHIFT BOSS Gender Identity Female 01/28/2024 11:49 PM CDT Sexual Orientation Straight 08/12/2022 12 :04 PM CDT documented as of this encounter Plan of Treatment Not on file documented as of this encounter Visit Diagnoses Not on filedocumented in this encounter Care Teams Investigative Shopper Relationship Specialty Start Date End Date Isreal Lin MD PCP - General Family Practice 08/30/23 documented as of this encounter
--- OUTSIDE RECORDS SUMMARY | 2025-02-01 13:04 | XMS_ITS | Clinical Summary ---
Author Organization [facility] [address] Address [address] [place] [address] Care Team Providers Care Box Estimator Name Role Phone Isreal Lin MD Primary Care Provider [phone] Allergies Active Allergy Reactions Criticality Noted Date Comments Adhesive Tape-Silicones Hives Medium 03/16/2013 Codeine Other (See comments) Low 04/21/2012 Acute abd. pain Acute abd. pain, Loratadine-Pseudoephed rine Other (See comments) Low 11/17/2021 Tigxjgf-Tfn-Yaw Reductase Inhibitors Other (See comments) Low Medications ascorbic acid (ascorbic acid with darlene hips) 500 mg tablet take 1 by Oral route once 0 0 02/20/20 15 Active losartan (COZAAR) 50 mg tablet take 1 tablet by oral route every day 0 0 02/20/20 15 Active multivitamin tablet tablet take 1 tablet by oral route every day with food 0 0 05/13/20 15 Active calcium carbonate (CALCIUM 600) 1,500 mg (600 mg of elemental calcium) tablet take 1 by Oral route every day 0 0 05/13/20 15 Active cycloSPORINE (RESTASIS) 0.05 % ophthalmic emulsionIndica tions:dry [...] 1 tablet (100 mcg total) by mouth budget record clerk before breakfast 07/31/20 21 Active ferrous sulfate 325 mg (65 mg of elemental iron) tabletIndicati ons:Iron Deficiency Anemia Take 1 tablet (65 mg of elemental iron total) by mouth every other day In AM 07/26/20 23 Active losartan (COZAAR) 25 mg tabletIndicati ons:hypertensi on Take 1 tablet (25 mg total) by mouth nightly Active sod ypdcc-qtjehz-g queez bottle 2,300-700 mg kit Administer 2 sprays into each nostril 2 (two) times a day 1 kit 12/18/19 24 Active nitrofurantoin monohydrate (MACROBID) 100 mg capsule 04/18/20 24 Active furosemide (LASIX) 20 mg tablet Take 1 tablet (20 mg total) by mouth daily Active spironolactone (ALDACTONE) 50 mg tablet Take 1 tablet (50 mg total) by mouth daily Active metFORMIN XR (GLUCOPHAGE XR) 500 mg 24 hr tablet Take 1 tablet (500 mg total) by mouth daily 08/31/20 24 Active propranoloL (INDERAL) 40 mg tablet Take 1 tablet (40 mg total) by mouth daily 10/26/19 25 Active tamoxifen (NOLVADEX) 20 mg tablet Take 1 tablet (20 mg total) by mouth daily 11/13/19 25 Active mupirocin (BACTROBAN) 2 % ointment APPLY TOPICALLY TWICE DAILY DISSOLVE 1 INCH IN NASAL IRRIGATION BOTTLE AND RINSE 22 g 01/16/20 25 Active metFORMIN (GLUCOPHAGE) 500 mg tablet take 1 tablet by oral route 2 times every day with morning and evening meals 0 0 02/20/20 15 025 Discontinued( erapy completed) ascorbic acid/collagen hydr (COLLAGEN SKIN RENEWAL ORAL)Indicatio ns:supplement Take 1 tablet by mouth every morning Not started 025 Discontinued( erapy completed) mupirocin (BACTROBAN) 2 % ointment APPLY OINTMENT TOPICALLY TWICE DAILY DISSOLVE 1 INCH IN NASAL IRRIGATION BOTTLE AND RINSE 22 g 12/08/19 25 025 Discontinued Active Problems Problem Noted Date Diagnosed Date Diplopia 01/09/2025 Nonrheumatic aortic valve stenosis 05/31/2024 Pre-operative cardiovascular examination 024 Secondary esophageal varices without bleeding H/O: CVA (cerebrovascular accident) 08/30/2023 Systolic murmur 08/30/2023 Chronic sinusitis 08/16/2023 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 Dizziness 09/23/2020 Drug-induced gastric ulcer 09/11/2019 Acquired hypothyroidism 08/20/2017 Hepatic cirrhosis 06/22/2016 Overview (01/21/2017): Cirrhosis of liver without ascites, unspecified hepatic cirrhosis type Coronary arteriosclerosis in [place] artery 06/22 Overview (01/21/2017): Coronary artery disease involving [place] coronary artery of [place] heart without angina pectoris Mixed diabetic hyperlipidemi a associated with type 2 diabetes mellitus (CMS/HCC) 06/22/2016 Overview (01/21/2017): DM type 2 with diabetic dyslipidemia Coronary artery calcification seen on CT scan Overview (01/21/2017): Coronary artery calcification seen on CAT scan Benign hypertension 02/19/2015 Overview (01/21/2017): HTN (hypertension), benign Hypertension associated with diabetes 02/19/2015 Overview (01/21/2017): Atherosclerotic cardiovascular disease Atypical chest pain 02/19/2015 Overview (01/21/2017): Chest pain Palpitations 02/19/2015 Overview (01/21/2017): Palpitations Steatosis of liver 02/19/2015 Overview (01/21/2017): Fatty liver Diabetes mellitus 02/19/2015 Overview (01/21/2017): DM (diabetes mellitus) Resolved Problems Problem Noted Date Diagnosed Date Resolved Date Statin intolerance 06/22/2016 Overview (01/21/2017): Statin intolerance Dyslipidemia 02/19/2015 08/06/2021 Overview (01/21/2017): Dyslipidemia Encounters Date Type Department Care Team Description 01/22/2025 Telephone [facility] Cardiology [address] [facility] [address] [place] [address] Sherrell Sunshine MD 01/16/2025 Results Follow-Up [facility] Cardiology at [address] [place] [address] Sherrell Sunshine MD 01/12/2025 10:00 AM CDT Ancillary Procedure [facility] Vascular and Vein Surgery at [address] [place] [address] Dizziness; Diplopia 01/09/2025 3:00 PM CDT Office Visit [facility] Cardiology [address] [facility] [address] [place] [address] Sherrell Sunshine MD Dizziness (Primary Dx); Diplopia; Atypical chest pain; Coronary artery calcification seen on CT scan; Nonrheumatic aortic valve stenosis 12/07/2024 11:20 AM TRAIN OPERATIONS SUPERVISOR Office Visit [facility] Advanced Medicine ([facility]) - [facility] ENT [address] [facility] Advanced Medicine 11th [place] [address] [place] [address] Samir Khan MD Chronic pansinusitis (Primary Dx) 11/08/2024 1:00 PM TRAIN OPERATIONS SUPERVISOR Office Visit [facility] ENT [address] [facility] [address] [place] [address] Samir Khan MD Chronic pansinusitis (Primary Dx) from Last 3 Months Surgical History Surgery Date Site/Laterality Comments COLONOSCOPY 10/11/2021 - 10/10/2022 APPENDECTOMY 10/11/1961 - 10/10/1962 BRONCHOSCOPY 10/11/2021 - 10/10/2022 CHOLECYSTECTOMY 08/06/1962 SINUS SURGERY 09/28/2021 MENISCUS SURGERY 10/11/2021 - 10/10/2022 Left VARICOSE VEIN SURGERY Bilateral unknown surgery; multiple CYST REMOVAL Right off finger on right hand; unknown date Medical History Medical History Date Comments Hypertension Allergic rhinitis Sinusitis 2002 Dental disease 1999 Dizziness 2002 Nosebleed 2009 Tinnitus 2002 Headache 2002 Liver disease 2011 Deep vein thrombosis (HCC) 2013 Anemia 2021 Diabetes mellitus (HCC) 2002 Cirrhosis (HCC) 2014 Delayed emergence from general anesthesia pt reports slow to wake up many years ago after colonscopy, pt states she went home same day and has done fine since then with other procedures Arthritis Cancer (HCC) 2023 Cataract 2021 Family History Medical History Relation Name Comments Alcohol abuse Brother Freedom Salgado Alzheimer's disease Father Mayela Alzheime r's [...] on file Legal Sex Female 3:37 AM TRAIN OPERATIONS SUPERVISOR Gender Identity Female 01/28/2024 11:49 PM CDT Sexual Orientation Straight 08/12/2022 12 :04 PM CDT Obstetrics History Last Filed Vital Signs Vital Sign Reading Time Taken Comments Blood Pressure 136/74 01/09/2025 3:19 PM CDT Pulse 64 01/09/2025 3:19 PM CDT Temperature 36 C (96.8 F) 12/17/2023 1:10 PM TRAIN OPERATIONS SUPERVISOR Respiratory Rate 16 05/31/2024 12:56 PM CDT Oxygen Saturation 99% 01/09/2025 3:19 PM CDT Inhaled Oxygen Concentration - - Weight 67.6 kg (149 lb) 01/09/2025 3:19 PM CDT Height 160 cm (5' 3 ) 01/09/2025 3:19 PM CDT Body Mass Index 26.39 01/09/2025 3:19 PM CDT Plan of Treatment Health Maintenance Due Date Last Done Comments Albumin Creatinine Ratio, Urine 1940 Depression Screening 1940 Hemoglobin A1C 1941 Osteoporosis Screening-Bone Density Scan 1941 eGFR 1941 Dilated Eye Exam 1941 Foot Exam 1941 Hepatitis B Screening 1959 Well Visit 65+ 2006 DTaP/Tdap/Td Vaccine (4 - Td or Tdap) 08/12/2021 08/12/2011, 10/11/2010, 10/11/2010 Fall Risk Assessment 12/16/2024 12/17/2023 Lipid Panel 02/16/2025 02/17/2024, 08/12, 02/09/2022, Additional history exists Influenza Vaccine (Season Ended) 2025 07/22/2020, 08/02/2019, 08/30/2018, Additional history exists Pneumococcal vaccine 65+ Completed 019, 04/11/2019, 08/12/2011, Additional history exists Zoster Vaccine Completed 08/11/2019, 05/01/2019 Procedures Procedure Name Priority Date/Time Associated Diagnosis Comments US CAROTIDS DUPLEX BILATERAL Schedule Routine, Read Routine (OP Routine) 01/12/2025 10:34 AM CDT Dizziness Diplopia LIPID PANEL Routine 02/17/2024 2:11 PM CDT from Last 3 Months or Most Recently Relevant to Health Maintenance Results * US Carotids Duplex Bilateral (01/12/2025 10:34 AM CDT) Anatomical Region Laterality Modality Vascular Bilateral Ultrasound 01/12/2025 10:1 0 AM CDT Narrative 01/13/2025 8:30 AM CDT Vascular & Vein Surgery [address] [place] [address] Carotid Duplex Ultrasound Report Patient Name: MAGGIE ERAZO A : 1940 (84y 1m) Study Date: 01/12/2025 10:10:45 AM Gender: F Loading Machine Operator: BETHEL Location: [facility] Ref Provider: SHERRELL SUNSHINE Quality: Adequate Order Provider: SHERRELL SUNSHINE PROCEDURES: Carotid Report: Carotid duplex examination of the extracranial arteries was performed using 2D, color and spectral Doppler. INDICATIONS: H53.2 Diplopia. HISTORY: HTN. HLD. DM. CVA. Breast CA. COMPARISONS: No previous exams. MEASUREMENTS: Right Value Left Value RT Prox CCA PSV 78 cm/sec LT Prox CCA PSV 78 cm/sec RT Prox CCA EDV 9 cm/sec LT Prox CCA EDV 13 cm/sec RT Distal CCA PSV 68 cm/sec LT Distal CCA PSV 71 cm/sec RT Distal CCA EDV 13 cm/sec LT Distal CCA EDV 14 cm/sec RT Prox ICA PSV 58 cm/sec LT Prox ICA PSV 51 cm/sec RT Prox ICA EDV 12 cm/sec LT Prox ICA EDV 10 cm/sec RT Mid ICA PSV 100 cm/sec LT Mid ICA PSV 81 cm/sec RT Mid ICA EDV 22 cm/sec LT Mid ICA EDV 20 cm/sec RT Distal ICA PSV 85 cm/sec LT Distal ICA PSV 61 cm/sec RT Distal ICA EDV 19 cm/sec LT Distal ICA EDV 13 cm/sec RT ECA Prx PSV 80 cm/sec LT ECA Prx PSV 74 cm/sec RT ICA/CCA 0.85 ratio LT ICA/CCA 0.72 ratio Rt Vert Dst PSV 46 cm/sec Lt Vert Dst PSV 54 cm/sec FINDINGS: Rt Common Carotid Artery: Duplex imaging of the right common carotid artery is within normal limits without evidence of atherosclerotic disease. Rt Internal Carotid Artery: The plaque in the right internal carotid artery appears to be heterogeneous and smooth. Atherosclerotic changes of the right internal carotid artery without hemodynamically significant Doppler findings. <50% stenosis. Rt External Carotid Artery: The right external carotid artery is patent without evidence of atherosclerotic plaque. Rt Vertebral Artery: The right vertebral artery is patent with antegrade flow. Lt Common Carotid Artery: Duplex imaging of the left common carotid artery is within normal limits without evidence of atherosclerotic disease. Lt Internal Carotid Artery: The plaque in the left internal carotid artery appears to be heterogeneous and smooth. Atherosclerotic changes of the left internal carotid artery without hemodynamically significant Doppler findings. <50% stenosis. Lt External Carotid Artery: The left external carotid artery is patent without evidence of atherosclerotic plaque. Lt Vertebral Artery: The left vertebral artery is patent with antegrade flow. Comments: Brachial artery systolic blood pressure is 149 on the right, 135 on the left. CONCLUSIONS: 1. No evidence of hemodynamically significant disease of the bilateral extracranial carotid system. ATTESTATION: I have reviewed and interpreted the pertinent images and measurements of this study. I attest to the conclusions in the final report that is provided above. Electronically Signed By: Tylor Woods MD 01/13/2025 7:47:56 AM CDT Procedure Note Tylor Woods MD - 01/13/2025 Vascular & Vein Surgery [address] [place] [address]. [place] [address] Carotid Duplex Ultrasound Report Patient Name: MAGGIE ERAZO A : 1940 (84y 1m) Study Date: 01/12/2025 10:10:45 AM Gender: F Loading Machine Operator: BETHEL Location: [facility] Ref Provider: SHERRELL SUNSHINE Quality: Adequate Order Provider: SHERRELL SUNSHINE PROCEDURES: Carotid Report: Carotid duplex examination of the extracranial arterieswas performed using 2D, color and spectral Doppler. INDICATIONS: H53.2 Diplopia. HISTORY: HTN. HLD. DM. CVA. Breast CA. COMPARISONS: No previous exams. MEASUREMENTS: Right Value Left Value RT Prox CCA PSV 78 cm/sec LT Prox CCA PSV 78 cm/sec RT Prox CCA EDV 9 cm/sec LT Prox CCA EDV 13 cm/sec RT Distal CCA PSV 68 cm/sec LT Distal CCA PSV 71 cm/sec RT Distal CCA EDV 13 cm/sec LT Distal CCA EDV 14 cm/sec RT Prox ICA PSV 58 cm/sec LT Prox ICA PSV 51 cm/sec RT Prox ICA EDV 12 cm/sec LT Prox ICA EDV 10 cm/sec RT Mid ICA PSV 100 cm/sec LT Mid ICA PSV 81 cm/sec RT Mid ICA EDV 22 cm/sec LT Mid ICA EDV 20 cm/sec RT Distal ICA PSV 85 cm/sec LT Distal ICA PSV 61 cm/sec RT Distal ICA EDV 19 cm/sec LT Distal ICA EDV 13 cm/sec RT ECA Prx PSV 80 cm/sec LT ECA Prx PSV 74 cm/sec RT ICA/CCA 0.85 ratio LT ICA/CCA 0.72 ratio Rt Vert Dst PSV 46 cm/sec Lt Vert Dst PSV 54 cm/sec FINDINGS: Rt Common Carotid Artery: Duplex imaging of the right common carotidartery is within normal limits without evidence of atherosclerotic disease. Rt Internal Carotid Artery: The plaque in the right internal carotidartery appears to be heterogeneous and smooth. Atherosclerotic changes of the right internalcarotid artery without hemodynamically significant Doppler findings. <50% stenosis. Rt External Carotid Artery: The right external carotid artery is patentwithout evidence of atherosclerotic plaque. Rt Vertebral Artery: The right vertebral artery is patent with antegradeflow. Lt Common Carotid Artery: Duplex imaging of the left common carotid arteryis within normal limits without evidence of atherosclerotic disease. Lt Internal Carotid Artery: The plaque in the left internal carotid arteryappears to be heterogeneous and smooth. Atherosclerotic changes of the left internalcarotid artery without hemodynamically significant Doppler findings. <50% stenosis. Lt External Carotid Artery: The left external carotid artery is patentwithout evidence of atherosclerotic plaque. Lt Vertebral Artery: The left vertebral artery is patent with antegradeflow. Comments: Brachial artery systolic blood pressure is 149 on the right, 135on the left. CONCLUSIONS: 1. No evidence of hemodynamically significant disease of the bilateralextracranial carotid system. ATTESTATION: I have reviewed and interpreted the pertinent images and measurements ofthis study. I attest to the conclusions in the final report that is provided above. Electronically Signed By: Tylor Woods MD 01/13/2025 7:47:56 AM CDT Sherrell Sunshine MD IM US PROCEDURES Final R esult * Lipid panel (02/17/2024 2:11 PM CDT) [...] Relevant to Health Maintenance Insurance MEDICARE MEDICARE [facility] MEDICARE [facility] FEDERAL Care Teams Box Estimator Relationship Specialty Start Date End Date Isreal Lin MD PCP - General Family Practice 08/30/23
--- OUTSIDE RECORDS SUMMARY | 2025-02-01 13:04 | XMS_ITS | Referral Summary ---
Author Organization [facility] [address] [place] [address] Address [address] [facility] [address] [place] [address] Care Team Providers Care Design Engineering Manager Name Role Phone Isreal Lin MD Primary Care Provider [phone] Encounters Date Type Department Care Team Description 01/22/2025 Telephone [facility] Cardiology [address] [place] [address] [address] [place] [address] Sherrell Sunshine MD 01/16/2025 Results Follow-Up [facility] Cardiology at [address] [place] [phone] Sherrell Sunshine MD 01/12/2025 10:00 AM CDT Ancillary Procedure [facility] Vascular and Vein Surgery at [address] [place] [phone] Dizziness; Diplopia 01/09/2025 3:00 PM CDT Office Visit [facility] Medical [facility] Cardiology [address] [place] [address] [address] [place] [phone] Sherrell Sunshine MD Dizziness (Primary Dx); Diplopia; Atypical chest pain; Coronary artery calcification seen on CT scan; Nonrheumatic aortic valve stenosis 12/07/2024 11:20 AM JUNIOR BOOKKEEPER Office Visit [facility] ([facility]) - [facility] [address] [facility] 11th [place] [address] [place] [address] Samir Khan MD Chronic pansinusitis (Primary Dx) 11/08/2024 1:00 PM JUNIOR BOOKKEEPER [facility] [address] [facility] Medical Office Building [address] [place] [address] Samir Khan MD Chronic pansinusitis (Primary Dx) from Last 3 Months Allergies Active Allergy Reactions Criticality Noted Date Comments Adhesive Tape-Silicones Hives Medium 03/16/2013 Codeine Other (See comments) Low 04/21/2012 Acute abd. pain Acute abd. pain, Loratadine-Pseudoephed rine Other (See comments) Low 11/17/2021 Mqqwths-Ggv-Kzl Reductase Inhibitors Other (See comments) Low Medications [...] 1 tablet (100 mcg total) by mouth machinist helper marine before breakfast 07/31/20 21 Active ferrous sulfate 325 mg (65 mg of elemental iron) tabletIndicati ons:Iron Deficiency Anemia Take 1 tablet (65 mg of elemental iron total) by mouth every other day In AM 07/26/20 23 Active losartan (COZAAR) 25 mg tabletIndicati ons:hypertensi on Take 1 tablet (25 mg total) by mouth nightly Active sod ykbvq-hdnbhk-j queez bottle 2,300-700 mg kit Administer 2 [...] evening meals 0 0 02/20/20 15 025 Discontinued(Th erapy completed) ascorbic acid/collagen hydr (COLLAGEN SKIN RENEWAL ORAL)Indicatio ns:supplement Take 1 tablet by mouth every morning Not started 025 Discontinued(Th erapy completed) mupirocin (BACTROBAN) 2 % ointment [...] unspecified hepatic cirrhosis type Coronary arteriosclerosis in [place] artery 06/22 Overview (01/21/2017): Coronary artery disease involving [place] coronary artery of [place] heart without angina pectoris Mixed diabetic hyperlipidemi [...] on file Legal Sex Female 3:37 AM JUNIOR BOOKKEEPER Gender Identity Female 01/28/2024 11:49 PM CDT Sexual Orientation Straight 08/12/2022 12 :04 PM CDT Last Filed Vital Signs Vital Sign Reading Time Taken Comments Blood Pressure 136/74 01/09/2025 3:19 PM CDT Pulse 64 01/09/2025 3:19 PM CDT Temperature 36 C (96.8 F) 12/17/2023 1:10 PM JUNIOR BOOKKEEPER Respiratory Rate 16 05/31/2024 12:56 PM CDT Oxygen Saturation 99% 01/09/2025 3:19 PM CDT Inhaled Oxygen Concentration - - Weight 67.6 kg (149 lb) 01/09/2025 3:19 PM CDT Height 160 cm (5' 3 ) 01/09/2025 3:19 PM CDT Body Mass Index 26.39 01/09/2025 3:19 PM CDT Plan of Treatment Not on [...] Vascular & Vein Surgery [address] [place] [address] Carotid Duplex Ultrasound Report Patient Name: MAGGIE ERAZO A : 1940 (84y 1m) Study Date: 01/12/2025 10:10:45 AM Gender: F Hot Wort Settler: BETHEL Location: [facility] Ref Provider: SHERRELL SUNSHINE [...] MD - 01/13/2025 Vascular & Vein Surgery [address] [facility] [place] [address] Carotid Duplex Ultrasound Report Patient Name: MAGGIE ERAZO A : 1940 (84y 1m) Study Date: 01/12/2025 10:10:45 AM Gender: F Hot Wort Settler: Location: [facility] Ref Provider: SHERRELL SUNSHINE Quality: [...] 103 0 - 150 EXTERNAL LAB Blood Historical Provider LAB BLOOD ORDERABLES Edit ed Result - Final EXTERNAL LAB from Last 3 Months or Most Recently Relevant to Health Maintenance Insurance MEDICARE MEDICARE [facility] MEDICARE [facility] Address: [address] [address] [place] [address] [facility] FEDERAL Member Subscriber Plan / Payer (Ef fective 2015-Present) Name:Maggie Erazo Relation to Subscriber:Spouse Name:Ysabel Erazo Date of :1939 (Home) Address: [address] [place] [address] Payer ID:[id number] (NAIC) Group ID:[id number] Type:[facility] Address: [address] [place] [id number] Care Teams Design Engineering Manager Relationship Specialty Start Date End Date Isreal Lin MD PCP - General Family Practice 08/30/23
--- OUTSIDE RECORDS SUMMARY | 2025-02-01 13:04 | XMS_ITS | Encounter Summary ---
Author Organization [facility] Address [address] [facility] [place] [address] Care Team Providers Care Carpenter Cradle And Dolly Name Role Phone Riley Isreal Primary Care Provider [phone] Unknown, Provider Primary Care Provider Unavaila ble Encounter Details Date Type Department Care Team (Late st Contact Info) Description 09/13/2024 Lab Requisition [facility] - [facility]ermPath Lab [address] [place] [phone] Darcie Hernandez DO [address] [facility] 3 [place] [address] Social History Tobacco Use Types Packs/Day Years Used Date Smoking Tobacco: Never Smokeless Tobacco: Never Alcohol Use Standard Drinks/Week Comments No 0 (1 standard drink = 0.6 oz pur e alcohol) Comments Unknown Sex and Gender Information Value Date Recorded Sex Assigned at Not on file Legal Sex Female 5:32 PM DIABETES TERRITORY MANAGER Gender Identity Not on file Sexual Orientation Straight 08/11/2024 10 :05 AM CDT documented as of this encounter Plan of Treatment Upcoming Encounters Date Type Department Care Team (Late st Contact Info) Description 10/29/2025 10:00 AM DIABETES TERRITORY MANAGER Office Visit [facility] - GI [address] [place] [phone] Humphrey Esquivel, MD [address] [place] [address] documented as of this encounter Goals Goal Patient Goal Type Associated Problems Recent Progress Patient-Stated? Author Medication Management General On track( 025 10:41 AM DIABETES TERRITORY MANAGER) Emre Broussard, RN Note: Expected end date: Interventions: Take all medications as prescribed Let your doctor know right away about any changes in your medications Make sure to request a refill of your medication at least one week prior to your last dose documented as of this encounter Procedures Procedure Name Priority Date/Time Associated Diagnosis Comments DERMATOPATHOLOGY Routine 09/13/2024 9:03 AM DIABETES TERRITORY MANAGER documented in this encounter Results * DERMATOPATHOLOGY (09/13/2024 9:03 AM DIABETES TERRITORY MANAGER) Case Report Dermatopathology Report Case: [id number] Authorizing Provider: Darcie Hernandez DO Collected: 09/13/2024 09:03 AM Ordering Location: [facility] - Received: 09/13/2024 04:19 PM DermPath Lab Pathologist: Any Brown MD Specimen: Skin, right superior shoulder 4 4:05 PM [facility] DERMATOPATHOLOGY LABORATORY Final Diagnosis Specimen A. SKIN, right superior shoulder: BENIGN VERRUCOUS KERATOSIS, INFLAMED (L82.1) 4 4:05 PM [facility] DERMATOPATHOLOGY LABORATORY Clinical History R/O NMSC 4 4:05 PM [facility] DERMATOPATHOLOGY LABORATORY Gross Description Specimen A: Received is one formalin filled container labeled with the patient's name and designated right superior shoulder. The specimen consists of a shave biopsy measuring 4x4x4 mm. Jar 0. 4 4:05 PM [facility] DERMATOPATHOLOGY LABORATORY Microscopic Description Specimen A. SKIN, right superior shoulder: Sections show hyperkeratosis, papillomatosis, hypergranulosis, and acanthosis. Inflammatory cells are present within the dermis. These histological findings can be seen in a verruca vulgaris or a seborrheic keratosis. 4 4:05 PM [facility] DERMATOPATHOLOGY LABORATORY Disclaimer An external and internal positive and negative controls are appropriate for the histochemical, immunohistochemical and immunofluorescence stain(s) in this case (if any), except where stated explicitly. The performance characteristics of the stain(s) cited in this report were developed and its performance characteristic determined by the Dermatopathology Laboratory at [facility], directed by Dr. Javier Carias. These tests need not be, and therefore are not, approved by the [place] Food and Drug Administration. The tests are used for clinical purposes. Billing Codes Specimen Charges Stain Charges 40175 1 4 4:05 PM [facility] DERMATOPATHOLOGY LABORATORY Embedded Images 4 4:05 PM [facility] DERMATOPATHOLOGY LABORATORY Pathology/Cytolo gy TISSUE SPECIMEN FROM SKIN / Unknown 09/13/2024 9:03 AM DIABETES TERRITORY MANAGER 09/13/2024 4:19 PM DIABETES TERRITORY MANAGER Darcie Hernandez DO LAB - PATHOLOGY/CYTOLOGY ORDERABLES Final Result DERMATOPATHOLOGY LABORATORY [facility] - Department of Dermatology [facility] Medicine [address] [place] [address], [address] [phone] documented in this encounter Visit Diagnoses Not on filedocumented in this encounter Care Teams Carpenter Cradle And Dolly Relationship Specialty Start Date End Date Isreal Lin [address] [place], [place] [id number] PCP - General Internal Medicine 10/25/23 10/22/24 Unknown, Provider PCP - General 10/23/24 documented as of this encounter
--- OUTSIDE RECORDS SUMMARY | 2025-02-01 13:04 | XMS_ITS | Clinical Summary ---
Author Organization [facility] Address [address] [facility] [place] [address] Care Team Providers Care Bellman Captain Name Role Phone Unknown, Provider Primary Care Provider Unavaila ble Source Comments [facility],non-owned Affiliates and Associated Physician Practices is amultiple site organization consisting of ambulatory clinics and hospital sitesin [place], [place], [place] and [place]. This disclosure is being madepursuant to the Care Everywhere program and may not contain all information available regarding this patient. Last updated 18.[facility] Allergies Active Allergy Reactions Criticality Noted Date [...] document. Alwaysverify current medications with the patient. losartan (COZAAR) 50 MG tablet Take 1 (one) tablet by mouth once daily 8 Active metFORMIN (GLUCOPHAGE) 500 MG tablet 1 (one) tablet 2 times daily with morning and evening meal 5 Active Calcium Carbonate-Vitam in D (CALCIUM-CARB 600 + D PO) Take 1 tablet by mouth Active multivitamin (OPURITY) CHEW tablet take 1 tablet by oral route every day with food 5 Active aspirin (ASPIRIN) 81 MG tablet Take [...] by mouth daily before breakfast Active Pediatric Multivit-Minera ls-C (COMPLETE MULTI-VITAMIN PO) Take by mouth once daily Active ferrous sulfate 325 (65 FE) MG tablet Take 1 (one) tablet by mouth every 2 days Active spironolactone (Aldactone) 50 MG tablet Take 1 (one) tablet by mouth once daily 30 tablet 5 4 Active furosemide (Lasix) 20 MG tablet Take 1 (one) tablet by mouth once daily 30 tablet 5 4 Active nadolol (Corgard) 40 MG tablet Take 1 tablet by mouth once daily 90 tablet 5 Active Active Problems Problem Noted Date Diagnosed Date Ascites 08/14/2024 Overview (10/23/2024): Noted to be increased on Aug 2024 US (but not reported on prior US) on no diuretics --> furosemide 20/d and spironolactone 50/d, BMP in 2 weeks Breast cancer 07/28/2024 Overview (07/28/2024): T1 N0 M0 stage IA invasive ductal carcinoma of the right breast status post ultrasound-guided biopsy of the right breast 6 o'clock position mass done on May 17, 2024 came back positive for invasive ductal carcinoma ER/TN positive HER2/duncan negative and Ki-67 of 10%. Status post right-sided lumpectomy done on June 28, 2024. Pathology showed invasive ductal carcinoma 0.5 cm with negative margins. 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 No biopsy. 09/20/12 US ([place]): fatty liver, no focal lesions 05/08/13 EGD [...] no focal lesions, no mention of ascites [facility] 01/13/21 US: nodular liver, no focal lesions, [...] PV, no mention of ascites 08/05/24 US ([place]): nodular liver, patent PV but flow suggests [...] came back positive for invasive ductal carcinoma ER/TN positive HER2/duncan negative and Ki-67 of 10%. Status post right-sided lumpectomy done on June 28, 2024. Pathology showed invasive ductal carcinoma 0.5 cm with negative margins. Type 2 diabetes mellitus 04/21/2012 Resolved Problems Problem Noted Date Diagnosed Date Resolved Date H/O: CVA (cerebrovascular accident) 08/30/2023 01/24/2025 Encounters Date Type Department Care Team Description 01/19/2025 Telephone [facility] - [address] [phone] Humphrey Esquivel MD Med Question 01/19/2025 Refill [facility] - [address] [address] Humphrey Esquivel MD Refill Request from Last 3 Months Immunizations Immunization Administration Dates Next Due TDAP (7yrs+) 10/11/2010 [...] on file Legal Sex Female 5:32 PM CASING RUNNING MACHINE TENDER Gender Identity Not on file Sexual Orientation Straight 08/11/2024 10 :05 AM CDT Last Filed Vital Signs Vital Sign Reading Time Taken Comments Blood Pressure 124/67 10/23/2024 10:52 AM CASING RUNNING MACHINE TENDER Pulse 56 10/23/2024 10:52 AM CASING RUNNING MACHINE TENDER Temperature 36.8 C (98.3 F) 10/23/2024 10:52 AM CASING RUNNING MACHINE TENDER Respiratory Rate 14 10/25/2023 9:34 AM CASING RUNNING MACHINE TENDER Oxygen Saturation 100% 10/23/2024 10:52 AM CASING RUNNING MACHINE TENDER Inhaled Oxygen Concentration - - Weight 66.7 kg (147 lb) 10/23/2024 10:52 AM CASING RUNNING MACHINE TENDER Height 160 cm (5' 3 ) 10/23/2024 10:52 AM CASING RUNNING MACHINE TENDER Body Mass Index 26.04 10/23/2024 10:52 AM CASING RUNNING MACHINE TENDER Plan of Treatment Upcoming Encounters Date Type Department Care Team (Late st Contact Info) Description 10/29/2025 10:00 AM CASING RUNNING MACHINE TENDER [place] [facility] [place] [address] [place] [address], [place] [address] Humphrey Esquivel MD [address] [place] [address] DIV [place] [address] Health Maintenance Due Date Last Done Comments BONE DENSITY TESTING 1940 MEDICARE AWV 12 MONTHS 1940 PNEUMOCOCCAL VACCINE 50+ (1 of 2 - PCV) 1960 DIABETES-STATIN 1981 ZOSTER VACCINE (1 of 2) 1991 HEPATITIS B VACCINE (1 of 3 - Risk 3-dose series) 2001 Respiratory Syncytial Virus (RSV) Vaccine Pt: or over 60 yrs (1 - 1-dose 75+ series) 2016 DIABETES RETINOPATHY SCREENING 10/19/2019 DIABETES-FOOT EXAM WITH MONOFILAMENT 10/19/2019 DTAP/TDAP/TD VACCINES (2 - Td or Tdap) 10/11/2020 10/11/2010 DIABETES-HGB A1C 02/24/2021 08/27/2020, 03/2013, 09/15/2012 COVID-19 VACCINE ( season) 2024 DEPRESSION SCREENING 10/11/2024 DIABETES - URINE PROTEIN SCREENING 10/11/2024 08/27/2020 DIABETES-SERUM CREATININE 10/25/20242023, 04/12/2023, 11/02/2022, Additional history exists INFLUENZA VACCINE (Season Ended) 2025 HIB VACCINE Aged Out No longer eligi ble based on patient's age to complete this topic HPV VACCINE Aged Out No longer eligi ble based on patient's age to complete this topic MENINGOCOCCAL (Group B) VACCINE SHARED DECISION-MAKING Aged Out No longer eligible based on patient's age to complete this topic MENINGOCOCCAL GROUPS A/C/Y/W VACCINE Aged Out No longer eligible based on patient's age to complete this topic Goals Goal Patient Goal Type Associated Problems Recent Progress Patient-Stated? Author Medication Management General On track( 025 10:41 AM CASING RUNNING MACHINE TENDER) Emre Broussard, RN Note: Expected end date: Interventions: Take all medications as prescribed Let your doctor know right away about any changes in your medications Make sure to request a refill of your medication at least one week prior to your last dose Procedures Procedure Name Priority Date/Time Associated Diagnosis Comments COMPREHENSIVE METABOLIC PANEL Routine 10/25/2023 11:42 AM CASING RUNNING MACHINE TENDER Liver cirrhosis secondary to MASH MICROALB/CREAT RATIO URINE (EXTERNAL RESULT ENTRY) Routine 08/27/2020 HEMOGLOBIN A1C (EXTERNAL RESULT ENTRY) Routine 08/27/2020 from Last 3 Months or Most Recently Relevant to Health Maintenance Results * (ABNORMAL) COMPREHENSIVE METABOLIC PANEL (10/25/2023 11:42 AM [facility]) BUN 12 7 - 26 mg/dL 10/25/2023 12:[address] [facility] Creatinine 0.74 0.56 - 0.96 mg/dL 10/25/2023 12:[address] [facility] Sodium 144 136 - 145 mmol/L 10/25/2023 12:[address] [facility] Potassium 4.1 3.5 - 4.5 mmol/L 10/25/2023 12:[address] [facility] Chloride 108(H) 98 - 107 mmol/L 10/25/2023 12:[address] [facility] CO2 27 22 - 29 mmol/L 10/25/2023 12:[address] [facility] Glucose 130(H) 70 - 115 mg/dL 10/25/2023 12:[address] [facility] Calcium 8.9 8.4 - 10.2 mg/dL 10/25/2023 12:[address] [facility] Protein Total 6.8 6.0 - 8.3 g/dL 10/25/2023 12:[address] [facility] Albumin 3.4 3.4 - 5.0 g/dL 10/25/2023 12:[address] [facility] Bilirubin Total 2.1(H) 0.2 - 1.2 mg/dL 10/25/2023 12:[address] [facility] Alkaline Phosphatase 88 40 - 150 U/L 10/25/2023 12:[address] [facility] ALT 33 5 - 55 U/L 10/25/2023 12:[address] [facility] AST 46(H) 5 - 34 U/L 10/25/2023 12:[address] [facility] Anion Gap 9 6 - 16 10/25/2023 12:[address] [facility] BUN/Creatinine Ratio 16 7 - 23 10/25/2023 12:[address] [facility] Osmolality Calculated 300(H) 275 - 295 mOsm/kg 10/25/2023 12:[address] [facility] Albumin/Globulin Ratio 1.0(L) 1.1 - 2.3 10/25/2023 12:[address] [facility] eGFR by CKD-EPI 81(L) >=90 mL/min/1.7 3 m2 10/25/2023 12:[address] [facility] Blood BLOOD SPECIMEN / Unknown Lab Venipuncture / Unknown 10/25/2023 11:42 AM CASING RUNNING MACHINE TENDER 10/25/2023 12:01 PM CASING RUNNING MACHINE TENDER Result [facility] Humphrey Esquivel MD LAB - CHEMISTRY OR DERABLES Final Result [facility] [address] [place] [address], [place] [phone] * MICROALB/CREAT RATIO URINE (EXTERNAL RESULT ENTRY) (08/27/2020) Microalb/Creat Ratio (EXTERNAL RESULT) 0 0 - 29 mg/g Urine URINE / Unknown 08/27/2020 Historical Provider LAB - URINE CHEMISTRY ORD ERABLES Final Result * (ABNORMAL) HEMOGLOBIN A1C (EXTERNAL RESULT ENTRY) (08/27/2020) Hemoglobin A1c (EXTERNAL RESULT) 6.9(A) 4.0 - 6.0 % Blood BLOOD SPECIMEN / Unknown 08/27/2020 Historical Provider LAB - CHEMISTRY ORDERABLE S Final Result from Last 3 Months or Most Recently Relevant to Health Maintenance Insurance MEDICARE [facility] MEDICARE Care Teams Bellman Captain Relationship Specialty Start Date End Date Unknown, Provider PCP - General 10/23/24
--- OUTSIDE RECORDS SUMMARY | 2025-02-01 13:04 | XMS_ITS | Continuity of Care Document ---
Author Organization [facility] Address [address] [place] [address] Phone Care Team Providers Care Label Tacker Name Role Phone Nicola Mcwilliams Unavailable Unavailable [...] Diagnoses Date Provider Providers Copied on Encounter [facility], [address] [place] [address] [address], [place], [place], [id number], [place] tel:[phone] [facility] No Information 0-201 0 Poppy Petersen. Francisco J[facility] [address], [place], [address], [place]. tel:[phone] Referring Provider: Francisco Javier Leblanc [facility] [address], [place], [address]. tel:[phone] [facility], [address] [place] [address] [address], [place], [place], [id number], [place] tel:[phone] SEC [place] [facility] No Information Jul-0 5-200 9 Poppy Edestuardo. [address] [facility] , [address], [place], [address], [place]. tel:[phone] [facility], [address], [place], [place], [id number], tel:[phone] SEC [facility] No Information Sep-1 2-200 8 Doiterence Petersen. [address] [facility] , [address], [place], [address], [place]. tel:[phone] Office/outpat ient Visit, [facility], [address], [place], [place], [id number], [place] tel:[phone] SEC [facility] No Information Darell-2 5-200 7 Poppy Petersen. [address] [facility] , [address], [place], [address], [place]. tel:[phone] Family History Family Member Type Diagnosis Age At Onset No Information Payers Payer name Insurance type Covered democrat ID Authoriza tion(s) Medicare [facility] [id number] Social History Type Description Quantity Date Captured [...]
--- OUTSIDE RECORDS SUMMARY | 2025-02-01 13:04 | XMS_ITS | Clinical Summary ---
Author Organization [facility] Melia Keenan Address [address] [place] [address] Care Team Providers Care Production Planning Supervisor Name Role Phone Unavailable Primary Care Provider Unavailabl e Allergies Active Allergy Reactions Criticality Noted Date Comments Adhesive Tape-Silicones Other (See Comments) 11/17/2021 Codeine Nausea and Vomiting,Shortness of Breath/Wheezing High 04/21/2012 Acute abd. pain Acute abd. pain, Acute abd. pain, Acute abd. pain, Acute abd. pain Diphenhydramine Hcl Hives High 03/16/2013 Ubhghkc-Asw-Alw Reductase Inhibitors Muscle Pain,Rash Medium 09/11/2019 Medications levothyroxine 100 mcg tablet Take 100 mcg [...] emulsion 1 Drop 2 times daily. Active tamoxifen (NOLVADEX) 20 mg tablet Take 1 Tablet (20 mg) by mouth daily. 90 Tablet 3 11/13/2024 Active Active Problems No known active problems Encounters Date Type Department Care Team Description 12/19/2024 Chart Note [facility] Rad[facility] Therapy [address] [place] [address] Elijah Gonzalez MD 11/28/2024 External Device Data STL ABSTRACTION Provider, Abstract 11/13/2024 11:00 AM CLOSING AGENT Office Visit [facility] Oncology and Hematology [facility] [address] [place] [address] Devin Mcintyre MD Malignant neoplasm of right breast in female, estrogen receptor positive, unspecified site of breast (CMS/HCC) (Primary Dx) from Last 3 Months Family History Medical [...] at Not on file Legal Sex Female 1:13 PM CDT Gender Identity Not on file Sexual Orientation Not on file Last Filed Vital Signs Vital Sign Reading Time Taken Comments Blood Pressure 132/69 11/13/2024 10:47 AM CLOSING AGENT Pulse 70 11/13/2024 10:47 AM CLOSING AGENT Temperature 36.3 C (97.4 F) 11/13/2024 10:47 AM CLOSING AGENT Respiratory Rate 16 11/13/2024 10:47 AM CLOSING AGENT Oxygen Saturation 91% 11/13/2024 10:47 AM CLOSING AGENT Inhaled Oxygen Concentration - - Weight 66.7 kg (147 lb) 11/13/2024 10:47 AM CLOSING AGENT Height 160 cm (5' 3 ) 05/25/2024 1:44 PM CDT Body Mass Index 26.04 05/25/2024 1:44 PM CDT Plan of Treatment Upcoming Encounters Date Type Department Care Team (Late st Contact Info) Description 02/15/2025 11:00 AM CDT Office Visit [facility] Oncology and Hematology [facility] [address] [place] [address] Devin Mcintyre MD [address] [facility] [address] [place] [address] Health Maintenance Due Date Last Done Comments DIABETES ANNUAL FOOT EXAM 1959 DIABETES MICROALBUMIN ANNUAL SCREEN 1959 LDL CHOLESTEROL ANNUAL 1959 PNEUMOCOCCAL VACCINE 50+ YEA RS (1 of 2 - PCV) 1960 ZOSTER VACCINE (1 of 2) 1991 RSV VACCINE (60+ or ) (1 - 1-dose 75+ series) 2016 DTAP/TDAP/TD VACCINES (2 - T d or Tdap) 10/11/2020 10/11/2010 INFLUENZA VACCINE (#1) 2024 DIABETES HBA1C Q 6 MONTHS 08/19/20242023, 08/19/2023, 01/14/2023, Additional history exists DIABETES ANNUAL RETINAL EXAM 01/02/2025, 01/03/2024, 11/19/2023, Additional history exists OSTEOPOROSIS SCREENING 03/27/2027 03/27/2022, 2019 Insurance MEDICARE PART A AND B [facility]
--- OUTSIDE RECORDS SUMMARY | 2025-02-01 13:04 | XMS_ITS | CONTINUITY OF CARE DOCUMENT ---
Author Name ginna chacko Address Unknown Organization [facility] Address [id number] [place] [address] [address] [place] [address] Phone [phone] Care Team Providers Care Shop Firer/Fireman Name Role Phone ginna chacko Unavailable Unavailable
[2025-02-03 07:14] LABS: CA 15-3 18 U/mL (<32)
== END 2025-02-01 11:29 | disposition home or self-care (01) ==
PROVIDERS: PCP Family Medicine; Visit Provider Internal Medicine Hematology & Oncology
DX: C50.911 Malignant neoplasm of unspecified site of right female breast (principal); Z17.0 Estrogen receptor positive status [ER+]
CPT/HCPCS: 36415; 80053; 85025; 85055; 86300

== ENCOUNTER 2025-02-05 07:53 | Outpatient (CLI) | payer MEDICARE, BC, SELFPAY ==
--- NOTE | ~2025-02-05 | US_ITS ---
Limited ABDOMINAL ULTRASOUND (Doppler ultrasound interrogation techniques used as needed for this exam.) Ordering provider: Humphrey EsquivelMD History: . Liver cirrhosis secondary to MASH . Comparison: None. FINDINGS: PANCREAS: Normal echotexture and size. PORTAL VEIN: Hepatopedal flow demonstrated. LIVER: Normal size. Nodular outline suggestive of cirrhosis. No focal hepatic lesions or perihepatic fluid collections are identified. BILIARY DUCTS: No intra or extrahepatic biliary dilation. Common bile duct measures 5.2 mm in diameter which is normal for patient's age. GALLBLADDER: Status post cholecystectomy. FREE FLUID: None visualized within the upper abdomen. IMPRESSION: Liver cirrhosis. Status post cholecystectomy. Otherwise, limited abdominal ultrasound. Reviewed, dictated and finalized at location A. [facility] IMPRESSION: Liver cirrhosis. Status post cholecystectomy. Otherwise, limited abdominal ultr asound.
== END 2025-02-05 07:54 | disposition home or self-care (01) ==
LOC: MICIMG 07:55
PROVIDERS: PCP Family Medicine; Visit Provider Internal Medicine Gastroenterology
DX: K74.60 Unspecified cirrhosis of liver (principal); K75.81 Nonalcoholic steatohepatitis (NASH); Z90.49 Acquired absence of other specified parts of digestive tract
CPT/HCPCS: 76705

== ENCOUNTER 2025-03-02 11:56 | Outpatient (CLI) | payer MEDICARE, BC, SELFPAY ==
--- OUTSIDE RECORDS SUMMARY | 2025-03-02 11:59 | XMS_ITS | Referral Summary ---
Author Organization [facility] [address] [facility] [address] Address [address] [place] [address] Care Team Providers Care Hand Brim Ironer Name Role Phone Isreal Lin MD Primary Care Provider [phone] Encounters Date Type Department Care Team Description 02/16/2025 2:00 PM CDT Ancillary Procedure [facility] Medical Group Cardiology at [address] [place] [address] Nonrheumatic aortic valve stenosis 02/09/2025 Results Follow-Up [facility] Cardiology at [address] [place] [address] Sherrell Sunshine MD CTA Heart and Coronary Arteries W Morphology when Performed 02/08/2025 12:51 PM CDT - 02/08/2025 11:59 PM CDT Hospital Encounter [facility] [address] [place] [address] Atypical chest pain; Coronary artery calcification seen on CT scan Discharge Disposition: Discharge to home or self care 02/07/2025 3:20 PM CDT Office Visit [facility] [address] [facility] Medical Office Building [address] [place] [address] Samir Khan MD Chronic pansinusitis (Primary Dx) 01/22/2025 Telephone [facility] Medical [facility] Cardiology [address] [place] [address] Sherrell Sunshine MD 01/16/2025 Results Follow-Up [facility] Cardiology at [address] [place] [id number] Sherrell Sunshine MD US Carotids Duplex Bilateral, Transthoracic Echo (TTE) Complete W Doppler/CF 01/12/2025 10:00 AM CDT Ancillary Procedure [facility] Vascular and Vein Surgery at [address] [place] [address] Dizziness; Diplopia 01/09/2025 3:00 PM CDT Office Visit [facility] Cardiology [address] [place] [address] Sherrell Sunshine MD Dizziness (Primary Dx); Diplopia; Atypical chest pain; Coronary artery calcification seen on CT scan; Nonrheumatic aortic valve stenosis 12/07/2024 11:20 AM PLANT CARE WORKER Office Visit [facility] Advanced [facility] ([facility]) - [facility] ENT [address] [facility] 11th [place] [address] [place] [address] Samir Khan MD Chronic pansinusitis (Primary Dx) from Last 3 Months Allergies Active Allergy Reactions Criticality Noted Date Comments Adhesive Tape-Silicones Hives Medium 03/16/2013 Codeine Other (See comments) Low 04/21/2012 Acute abd. pain Acute abd. pain, Loratadine-Pseudoephed rine Other (See comments) Low 11/17/2021 Prdhfwc-Whc-Hge Reductase Inhibitors Other (See comments) Low Medications [...] 15 Active cycloSPORINE (RESTASIS) 0.05 % ophthalmic emulsionIndicat ions:dry eye Administer 1 drop into both eyes 2 (two) times a day Active artificial tears,hypromell ose, 0.3 % dropsIndication s:Dry Eye Administer 1 drop into both eyes daily as needed Active omeprazole (PriLOSEC) 20 mg capsuleIndicati ons:gerd Take 1 capsule (20 mg total) by mouth every morning Active nadoloL (CORGARD) 40 mg tabletIndicatio ns:hypertension Take 1 tablet (40 mg total) by mouth every morning 08/17/20 20 Active aspirin 81 mg enteric coated tabletIndicatio ns:prevention of thrombosis Take 1 tablet (81 mg total) by mouth every morning Active levothyroxine (SYNTHROID) 100 mcg tabletIndicatio ns:hypothyroidi sm Take 1 tablet (100 mcg total) by mouth director of early childhood before breakfast 07/31/20 21 Active ferrous sulfate 325 mg (65 mg of elemental iron) tabletIndicatio ns:Iron Deficiency Anemia Take 1 tablet (65 mg of elemental iron total) by mouth every other day In AM 07/26/20 23 Active losartan (COZAAR) 25 mg tabletIndicatio ns:hypertension Take 1 tablet (25 mg total) by mouth nightly Active sod otsqf-dyefoi-rb ueez bottle 2,300-700 mg kit Administer 2 sprays [...] total) by mouth daily 08/31/20 24 Active tamoxifen (NOLVADEX) 20 mg tablet Take 1 tablet (20 mg total) by mouth daily 11/13/19 25 Active mupirocin (BACTROBAN) 2 % ointment APPLY TOPICALLY TWICE DAILY DISSOLVE 1 INCH IN NASAL IRRIGATION BOTTLE AND RINSE 22 g 02/20/20 25 Active propranoloL (INDERAL) 40 mg tablet Take 1 tablet (40 mg total) by mouth daily 10/26/19 25 025 Discontinued mupirocin (BACTROBAN) 2 % ointment APPLY TOPICALLY TWICE DAILY DISSOLVE 1 INCH IN NASAL IRRIGATION BOTTLE AND RINSE 22 g 01/16/20 25 025 Discontinued methylPREDNISol one (MEDROL DOSEPACK) 4 mg Dosepack Take as directed on package 1 packet 02/08/20 25 025 Active Problems Problem Noted Date Diagnosed Date Diplopia 01/09/2025 Nonrheumatic aortic valve stenosis 05/31/2024 Pre-operative cardiovascular examination 024 Secondary esophageal varices without bleeding H/O: CVA (cerebrovascular accident) 08/30/2023 Systolic murmur 08/30/2023 Chronic sinusitis 08/16/2023 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 Dizziness 09/23/2020 Drug-induced gastric ulcer 09/11/2019 Acquired hypothyroidism 08/20/2017 Hepatic cirrhosis 06/22/2016 Overview (01/21/2017): Cirrhosis of liver without ascites, unspecified hepatic cirrhosis type Coronary arteriosclerosis in [place] artery 06/22 Overview (01/21/2017): Coronary artery disease involving [place] coronary artery of [place] heart without angina pectoris Mixed diabetic hyperlipidemi [...] on file Legal Sex Female 3:37 AM PLANT CARE WORKER Gender Identity Female 01/28/2024 11:49 PM CDT Sexual Orientation Straight 08/12/2022 12 :04 PM CDT Last Filed Vital Signs Vital Sign Reading Time Taken Comments Blood Pressure 157/59 02/08/2025 1:39 PM CDT Pulse 64 02/08/2025 1:39 PM CDT Temperature 36 C (96.8 F) 12/17/2023 1:10 PM PLANT CARE WORKER Respiratory Rate 16 05/31/2024 12:56 PM CDT [...] (TTE) COMPLETE W DOPPLER/CF WO CONTRAST Routine 02/16/2025 2:16 PM CDT Nonrheumatic aortic valve stenosis CT HEART MORPHOLOGY AND CORONARY ARTERIES W CONTRAST Schedule Routine, Read Routine (OP Routine) 02/08/2025 1:54 PM CDT Atypical chest pain Coronary artery calcification seen on CT scan POCT CREATININE - DEVICE Routine 02/08/2025 1:41 PM CDT US CAROTIDS DUPLEX BILATERAL Schedule Routine, Read Routine (OP Routine) 01/12/2025 10:34 AM CDT Dizziness Diplopia LIPID PANEL Routine 02/17/2024 2:11 PM CDT from Last 3 Months or Most Recently Relevant to Health Maintenance Results * TRANSTHORACIC ECHO (TTE) COMPLETE W DOPPLER/CF WO CONTRAST (02/16/2025 2:16 PM CDT) EF Mod BP 76 % CONS SCIMAGE Anatomical Region Laterality Modality Ultrasound 02/16/2025 1:56 PM CDT Narrative 02/17/2025 10:41 AM CDT [facility] Medical Group Cardiology [address], [address], [place] [address] P:[phone] P:[phone] Echocardiographic Report Patient Name: MAGGIE ERAZO A : 1940 Study Date: 02/16/2025 1:56:11 PM Gender: F Tech: Location: [facility] Ref Provider: SHERRELL SUNSHINE Height(Cm): 160 BSA: 1.73 Weight(Kg): 67.6 Heart Rate: 62 BP: 157 / 59 Quality: Good Order Provider: SHERRELL SUNSHINE PROCEDURES: Echocardiographic Report: Transthoracic echocardiogram with complete 2D, M-Mode, and color Doppler examination. With Strain Analysis. INDICATIONS: I35.0 Nonrheumatic aortic (valve) stenosis. MEASUREMENTS: 2D/MM Value Range Doppler Value Range EF Mod BP 76 % [ 54 - 74 ] TONY Vmax 1.78 cm2 [ 2.00 - 4.00 ] EF Teich MM 62 % [ 54 - 74 ] AV Mean PG 9 mmHg LVIDd 2D 3.91 cm [ 3.80 - 5.20 ] AV Peak Luis 2.00 m/s [ 1.00 - 1.70 ] LVIDd MM 4.31 cm [ 3.80 - 5.20 ] AV Peak PG 16 mmHg LVIDs 2D 2.20 cm [ 2.20 - 3.50 ] AV VTI 49.82 cm LVIDs MM 2.88 cm [ 2.20 - 3.50 ] LVOT Diam 1.95 cm [ 1.70 - 2.10 ] LVPWd 2D 0.93 cm [ 0.60 - 0.90 ] LVOT Peak Luis 1.10 m/s [ 0.70 - 1.10 ] LVPWd MM 0.91 cm [ 0.60 - 0.90 ] LVOT VTI 26.34 cm IVSd 2D 0.65 cm [ 0.60 - 0.90 ] MV E Peak Luis 1.20 m/s [ 0.60 - 1.30 ] IVSd MM 1.01 cm [ 0.60 - 0.90 ] MV A Peak Luis 1.05 m/s [ 1.00 - 1.20 ] LA Dimension MM 3.23 cm [ 2.70 - 3.80 ] MV Decel Time 259 msec [ 104 - 258 ] AoR Diam MM 2.55 cm [ 2.70 - 3.70 ] PV Peak Luis 1.07 m/s [ 0.40 - 0.80 ] LA Volume Index 30 cc/m2 [ 16 - 34 ] TR Peak Luis 2.40 m/s [ 1.00 - 2.80 ] ACS MM 1.26 cm TR Peak PG 23 mmHg RVSP 31.00 mmHg [ 10.00 - 36.00 ] Lateral E` 0.08 m/s [ 0.10 - 0.15 ] E/E` 16 2D/MM Value Range Doppler Value Range - FINDINGS: Interpretation Site: Exam was interpreted at [facility]. Left Ventricle: Normal left ventricular systolic function. No focal wall motion abnormalities. Normal left ventricular size. Normal left ventricular wall thickness. There is pseudonormal diastolic dysfunction Grade II. Ejection fraction is measured at 76 %. Global Longitudinal Strain is -20 %. GLS is normal. Right Ventricle: Normal right ventricular size. Normal right ventricular systolic function. Left Atrium: The left atrium is normal in size. Right Atrium: The right atrium is normal in size. Atrial Septum: Normal atrial septum. Mitral Valve: Mild mitral annular calcification. Mild mitral valve regurgitation. There is no hemodynamically significant mitral stenosis by Doppler. Aortic Valve: Mild aortic stenosis. Peak Velocity of 2.00 m/s. Mean gradient of 9.0 mmHg. Valve area of 1.8 cm2. Aortic cusps appear mildly calcified. Trileaflet aortic valve. No aortic regurgitation. Tricuspid Valve: Normal appearance of the tricuspid valve. Estimated peak RVSP is 31 mmHg. Mild tricuspid regurgitation. Pulmonic Valve: Normal appearance of the pulmonic valve. No evidence of pulmonic regurgitation. Pericardium: Normal pericardium with no significant pericardial effusion. Aorta: Sinus of Valsalva is normal. IVC: Normal size and normal respiratory collapse consistent with normal right atrial pressure (<5 mmHg). Pulmonary Artery: Normal pulmonary artery size. CONCLUSIONS: Normal left ventricular systolic function. No focal wall motion abnormalities. Normal left ventricular size. Normal left ventricular wall thickness. There is pseudonormal diastolic dysfunction Grade II. Ejection fraction is measured at 76 %. Global Longitudinal Strain is -20 %. GLS is normal. Mild mitral annular calcification. Mild mitral valve regurgitation. Mild aortic stenosis. Peak Velocity of 2.00 m/s. Mean gradient of 9.0 mmHg. Valve area of 1.8 cm2. Aortic cusps appear mildly calcified. Trileaflet aortic valve. No aortic regurgitation. Estimated peak RVSP is 31 mmHg. Mild tricuspid regurgitation. Electronically Signed By: Dr. Jeana Eden [facility] 02/17/2025 10:40:58 AM CDT Procedure Note Jeana Eden MD - 02/17/2025 [facility] Medical Group Cardiology [address], [address], [place] [address] [phone] P:[phone] Echocardiographic Report Patient Name: MAGGIE ERAZO A : 1940 Study Date: 02/16/2025 1:56:11 PM Gender: F Tech: Location: [facility] Ref Provider: SHERRELL SUNSHINE Height(Cm): 160 BSA: 1.73 Weight(Kg): 67.6 Heart Rate: 62 BP: 157 / 59 Quality: Good Order Provider: SHERRELL SUNSHINE PROCEDURES: Echocardiographic Report: Transthoracic echocardiogram with complete 2D, M-Mode, and color Dopplerexamination. With Strain Analysis. INDICATIONS: I35.0 Nonrheumatic aortic (valve) stenosis. MEASUREMENTS: 2D/MM Value Range Doppler ValueRange EF Mod BP 76 % [ 54 - 74 ] TONY Vmax 1.78cm2 [ 2.00 - 4.00 ] EF Teich MM 62 % [ 54 - 74 ] AV Mean PG 9mmHg LVIDd 2D 3.91 cm [ 3.80 - 5.20 ] AV Peak Luis 2.00m/s [ 1.00 - 1.70 ] LVIDd MM 4.31 cm [ 3.80 - 5.20 ] AV Peak PG 16mmHg LVIDs 2D 2.20 cm [ 2.20 - 3.50 ] AV VTI 49.82cm LVIDs MM 2.88 cm [ 2.20 - 3.50 ] LVOT Diam 1.95 cm[ 1.70 - 2.10 ] LVPWd 2D 0.93 cm [ 0.60 - 0.90 ] LVOT Peak Luis 1.10m/s [ 0.70 - 1.10 ] LVPWd MM 0.91 cm [ 0.60 - 0.90 ] LVOT VTI 26.34cm IVSd 2D 0.65 cm [ 0.60 - 0.90 ] MV E Peak Luis 1.20m/s [ 0.60 - 1.30 ] IVSd MM 1.01 cm [ 0.60 - 0.90 ] MV A Peak Luis 1.05m/s [ 1.00 - 1.20 ] LA Dimension MM 3.23 cm [ 2.70 - 3.80 ] MV Decel Time 259msec [ 104 - 258 ] AoR Diam MM 2.55 cm [ 2.70 - 3.70 ] PV Peak Luis 1.07m/s [ 0.40 - 0.80 ] LA Volume Index 30 cc/m2 [ 16 - 34 ] TR Peak Luis 2.40m/s [ 1.00 - 2.80 ] ACS MM 1.26 cm TR Peak PG 23mmHg RVSP 31.00 mmHg [ 10.00 - 36.00 ] Lateral E` 0.08 m/s [ 0.10 - 0.15 ] E/E` 16 2D/MM Value Range Doppler ValueRange - FINDINGS: Interpretation Site: Exam was interpreted at [facility]. Left Ventricle: Normal left ventricular systolic function. No focal wall motionabnormalities. Normal left ventricular size. Normal left ventricular wall thickness. There ispseudonormal diastolic dysfunction Grade II. Ejection fraction is measured at 76 %.Global Longitudinal Strain is -20 %. GLS is normal. Right Ventricle: Normal right ventricular size. Normal right ventricular systolicfunction. Left Atrium: The left atrium is normal in size. Right Atrium: The right atrium is normal in size. Atrial Septum: Normal atrial septum. Mitral Valve: Mild mitral annular calcification. Mild mitral valve regurgitation. Thereis no hemodynamically significant mitral stenosis by Doppler. Aortic Valve: Mild aortic stenosis. Peak Velocity of 2.00 m/s. Mean gradient of 9.0mmHg. Valve area of 1.8 cm2. Aortic cusps appear mildly calcified. Trileaflet aortic valve. Noaortic regurgitation. Tricuspid Valve: Normal appearance of the tricuspid valve. Estimated peak RVSP is 31 mmHg.Mild tricuspid regurgitation. Pulmonic Valve: Normal appearance of the pulmonic valve. No evidence of pulmonicregurgitation. Pericardium: Normal pericardium with no significant pericardial effusion. Aorta: Sinus of Valsalva is normal. IVC: Normal size and normal respiratory collapse consistent with normal rightatrial pressure (<5 mmHg). Pulmonary Artery: Normal pulmonary artery size. CONCLUSIONS: Normal left ventricular systolic function. No focal wall motionabnormalities. Normal left ventricular size. Normal left ventricular wall thickness. There ispseudonormal diastolic dysfunction Grade II. Ejection fraction is measured at 76 %.Global Longitudinal Strain is -20 %. GLS is normal. Mild mitral annular calcification. Mild mitral valve regurgitation. Mild aortic stenosis. Peak Velocity of 2.00 m/s. Mean gradient of 9.0mmHg. Valve area of 1.8 cm2. Aortic cusps appear mildly calcified. Trileaflet aortic valve. Noaortic regurgitation. Estimated peak RVSP is 31 mmHg. Mild tricuspid regurgitation. Electronically Signed By: Dr. Jeana Eden [facility] 02/17/2025 10:40:58 AM CDT us Sherrell Sunshine MD CV ECHO PROCEDURES Final Result * CTA Heart and Coronary Arteries W Morphology when Performed (02/08/2025 1:54 PM CDT) Anatomical Region Laterality Modality Chest N/A Computed Tomogra phy 02/08/2025 3:05 PM CDT Impressions 02/08/2025 4:54 PM CDT 1. Nonobstructive coronary artery disease with calcified plaques in the left anterior descending artery leading to minimal stenosis. 2. Coronary artery calcium score of 24.2. Dictated by: Reji Spicer M.D. The radiology attending physician has personally reviewed this study, and had reviewed and/or edited this written report and agrees with it. Electronically signed by: Martir El M.D. Narrative 02/08/2025 4:54 PM CDT EXAMINATION: CORONARY CT ANGIOGRAM HISTORY: 84-year-old female with history of hypertension/hyperlipidemia and type II diabetes here for evaluation of chest pain. TECHNIQUE: CT angiography of the coronary arteries was performed after the administration of 93 mL of Optiray 350. Images were also obtained precontrast for the purposes of calcium scoring. 10 mg of metoprolol was administered intravenously prior to the examination. The patient's heart rate and blood pressure at the time of the examination were 70 beats per minute. Images were transferred to a 3D workstation for additional post-processing. FINDINGS: The coronary arteries are left system dominant. There is no anomalous coronary origin or course. Right coronary system: Right coronary artery is small and free of appreciable disease. Left coronary system: The left main coronary artery bifurcates into a left anterior descending artery and left circumflex coronary artery. There are scattered calcified plaques in the left anterior descending artery that are nonobstructive leading to minimal stenosis. The calculated calcium score is 24.2. Other findings: Mitral annular calcifications. Biatrial enlargement. Pleural-based thickened nodule in located in the lateral segment of the right middle lobe compatible with prior radiation. History of prior right breast surgery. Right fissural lymph node. Procedure Note Martir El MD - 02/08/2025 EXAMINATION: CORONARY CT ANGIOGRAM HISTORY: 84-year-old female with history of hypertension/hyperlipidemia and type II diabetes here for evaluation of chest pain. TECHNIQUE: CT angiography of the coronary arteries was performed after the administration of 93 mL of Optiray 350. Images were also obtained precontrast for the purposes of calcium scoring. 10 mg of metoprolol was administered intravenously prior to the examination. The patient's heart rate and blood pressure at the time of the examination were 70 beats per minute. Images were transferred to a 3D workstation for additional post-processing. FINDINGS: The coronary arteries are left system dominant. There is no anomalous coronary origin or course. Right coronary system: Right coronary artery is small and free of appreciable disease. Left coronary system: The left main coronary artery bifurcates into a left anterior descending artery and left circumflex coronary artery. There are scattered calcified plaques in the left anterior descending artery that are nonobstructive leading to minimal stenosis. The calculated calcium score is 24.2. Other findings: Mitral annular calcifications. Biatrial enlargement. Pleural-based thickened nodule in located in the lateral segment of the right middle lobe compatible with prior radiation. History of prior right breast surgery. Right fissural lymph node. IMPRESSION: 1. Nonobstructive coronary artery disease with calcified plaques in the left anterior descending artery leading to minimal stenosis. 2. Coronary artery calcium score of 24.2. Dictated by: Reji Spicer M.D. The radiology attending physician has personally reviewed this study, and had reviewed and/or edited this written report and agrees with it. Electronically signed by: Martir El M.D. us Sherrell Sunshine MD IMG CT PROCEDURES Final R esult * (ABNORMAL) POCT creatinine (02/08/2025 1:41 PM CDT) Creatinine POC 1.2(H) 0.6 - 1.1 mg/dL Blood 02/08/2025 1:41 PM CDT 02/08/2025 1:41 PM CDT us Isreal Lin MD LAB POCT ORDERABLES - DEV ICE Final Result Performing Organization Address City/State/[facility] Co in Phone Number [facility] [place] [address] * US Carotids Duplex Bilateral (01/12/2025 10:34 AM CDT) Anatomical Region Laterality Modality Vascular Bilateral Ultrasound 01/12/2025 10:1 0 AM CDT Narrative 01/13/2025 8:30 AM CDT Vascular & Vein Surgery [address] [place] [address] Carotid Duplex Ultrasound Report Patient Name: MAGGIE ERAZO A : 1940 (84y 1m) Study Date: 01/12/2025 10:10:45 AM Gender: F Electric Installer: BETHEL Location: [facility] Ref Provider: SHERRELL SUNSHINE [...] MD - 01/13/2025 Vascular & Vein Surgery [address] [place] [address] Carotid Duplex Ultrasound Report Patient Name: MAGGIE ERAZO A : 1940 (84y 1m) Study Date: 01/12/2025 10:10:45 AM Gender: F Electric Installer: Location: [facility] Provider: SHERRELL SUNSHINE Quality: Adequate Order Provider: [...] Relevant to Health Maintenance Insurance MEDICARE MEDICARE [facility] MEDICARE [facility] Care Teams Hand Brim Ironer Relationship Specialty Start Date End Date Isreal Lin MD PCP - General Family Practice 08/30/23
--- OUTSIDE RECORDS SUMMARY | 2025-03-02 11:59 | XMS_ITS | Encounter Summary ---
Author Organization [facility] Healthcare Address [address] [place] [address] Care Team Providers Care Program Director Group Work Name Role Phone Isreal Lin MD Primary Care Provider [phone] Encounter Details Date Type Department Care Team (Latest Contact Info) Description 01/16/2025 Results Follow-Up [facility] Medical Group Cardiology at [address] [place] [address] Maxi Hutton MD [address] [address] US Carotids Duplex Bilateral, Transthoracic Echo (TTE) Complete W Doppler/CF Social History Tobacco Use Types Packs/Day Years [...] on file Legal Sex Female 3:37 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
--- OUTSIDE RECORDS SUMMARY | 2025-03-02 11:59 | XMS_ITS | CONTINUITY OF CARE DOCUMENT ---
Author Name ginna chacko Address Unknown Organization [facility] Address [address] [place] [address] [address] [place] [address] Phone [phone] Care Team Providers Care Production Hardener Name Role Phone ginna chacko Unavailable Unavailable
--- OUTSIDE RECORDS SUMMARY | 2025-03-02 11:59 | XMS_ITS | Encounter Summary ---
Author Organization [facility] Address [address] [place] [address] Care Team Providers Care Budget Technician Name Role Phone Unavailable Primary Care Provider Unavailabl e Encounter Details Date Type Department Care Team (Late st Contact Info) Description 02/28/2025 External Device Data [facility] ABSTRACTION Provider, Abstract [...] Care Team (Late st Contact Info) Description 05/21/2025 2:45 PM CDT Office Visit [facility] Oncology and Hematology - [place] [address] [place] [address] [facility] [address] [place] [address] Devin Mcintyre MD [address] [facility] [address] [place] [address] documented as of this encounter Visit Diagnoses Not on filedocumented in this encounter
--- OUTSIDE RECORDS SUMMARY | 2025-03-02 11:59 | XMS_ITS | Encounter Summary ---
Author Organization [facility] Address [address] [place] [address] Care Team Providers Care Cook At [employer] Name Role Phone Riley Isreal Primary Care Provider [phone] Unknown, Provider Primary Care Provider Unavaila ble Encounter Details Date Type Department Care Team (Late st Contact Info) Description 09/13/2024 Lab Requisition [facility] - DermPath Lab [address] [place] [phone] Darcie Hernandez DO [address] [facility] [address] [place] [address] Social History Tobacco Use Types Packs/Day Years Used Date Smoking Tobacco: Never Smokeless Tobacco: Never Alcohol Use Standard Drinks/Week Comments No 0 (1 standard drink = 0.6 oz pur e alcohol) Comments Unknown Sex and Gender Information Value Date Recorded Sex Assigned at Not on file Legal Sex Female 5:32 PM CUPOLA CHARGER INSULATION Gender Identity Not on file Sexual Orientation Straight 08/11/2024 10 :05 AM CDT documented as of this encounter Plan of Treatment Upcoming Encounters Date Type Department Care Team (Late st Contact Info) Description 10/29/2025 10:00 AM CUPOLA CHARGER INSULATION Office Visit [facility] - GI [address] [place] [phone] Humphrey Esquivel, MD [address] [place] [address] documented as of this encounter Goals Goal Patient Goal Type Associated Problems Recent Progress Patient-Stated? Author Medication Management General On track( 025 10:41 AM CUPOLA CHARGER INSULATION) Emre Broussard, RN Note: Expected end date: Interventions: Take all medications as prescribed Let your doctor know right away about any changes in your medications Make sure to request a refill of your medication at least one week prior to your last dose documented as of this encounter Procedures Procedure Name Priority Date/Time Associated Diagnosis Comments DERMATOPATHOLOGY Routine 09/13/2024 9:03 AM CUPOLA CHARGER INSULATION documented in this encounter Results * DERMATOPATHOLOGY (09/13/2024 9:03 AM CUPOLA CHARGER INSULATION) Case Report Dermatopathology Report Case: [id number] Authorizing Provider: Darcie Hernandez DO Collected: 09/13/2024 09:03 AM Ordering Location: [facility] - Received: 09/13/2024 04:19 PM DermPath Lab Pathologist: Any Brown MD Specimen: Skin, right superior shoulder 4 4:05 PM [facility] DERMATOPATHOLOGY [facility]ORATORY Final Diagnosis Specimen A. SKIN, right superior shoulder: BENIGN VERRUCOUS KERATOSIS, INFLAMED (L82.1) 4:05 PM [facility] DERMATOPATHOLOGY LABORATORY at [address] [facility] Clinical History R/O NMSC 4:05 PM [facility] DERMATOPATHOLOGY [facility]ORATORY Gross Description Specimen A: Received is one formalin filled container labeled with the patient's name and designated right superior shoulder. The specimen consists of a shave biopsy measuring 4x4x4 mm. Jar 0. 4:05 PM [facility] DERMATOPATHOLOGY [facility]ORATORY Microscopic Description Specimen A. SKIN, right superior shoulder: Sections show hyperkeratosis, papillomatosis, hypergranulosis, and acanthosis. Inflammatory cells are present within the dermis. These histological findings can be seen in a verruca vulgaris or a seborrheic keratosis. 4 4:05 PM [facility] DERMATOPATHOLOGY [facility]ORATORY Disclaimer An external and internal positive and negative controls are appropriate for the histochemical, immunohistochemical and immunofluorescence stain(s) in this case (if any), except where stated explicitly. The performance characteristics of the stain(s) cited in this report were developed and its performance characteristic determined by the Dermatopathology Laboratory at [facility], directed by Dr. Javier Carias. These tests need not be, and therefore are not, approved by the [place] Food and Drug Administration. The tests are used for clinical purposes. Billing Codes Specimen Charges Stain Charges 13876 1 4 4:05 PM [facility] DERMATOPATHOLOGY [facility]ORAT[facility] Embedded Images 4 4:05 PM [facility] DERMATOPATHOLOGY [facility]ORATORY Pathology/Cytolo gy TISSUE SPECIMEN FROM SKIN / Unknown 09/13/2024 9:03 AM CUPOLA CHARGER INSULATION 09/13/2024 4:19 PM CUPOLA CHARGER INSULATION Darcie Hernandez DO LAB - PATHOLOGY/CYTOLOGY ORDERABLES Final Result DERMATOPATHOLOGY LABORATORY [facility] - Department of Dermatology [facility] Medicine [address] [place] [address], [address] [phone] documented in this encounter Visit Diagnoses Not on filedocumented in this encounter Care Teams Cook At School Relationship Specialty Start Date End Date Isreal Lin [address] [place] [address] PCP - General Internal Medicine 10/25/23 10/22/24 Unknown, Provider PCP - General 10/23/24 documented as of this encounter
--- OUTSIDE RECORDS SUMMARY | 2025-03-02 11:59 | XMS_ITS | Clinical Summary ---
Author Organization [facility] [address] Address [address] [place] [address] Care Team Providers Care Assistant Terminal Manager Name Role Phone Isreal Lin MD Primary Care Provider [phone] Allergies Active Allergy Reactions Criticality Noted Date Comments Adhesive Tape-Silicones Hives Medium 03/16/2013 Codeine Other (See comments) Low 04/21/2012 Acute abd. pain Acute abd. pain, Loratadine-Pseudoephed rine Other (See comments) Low 11/17/2021 Xhiwdur-Byp-Jcf Reductase Inhibitors Other (See comments) Low Medications [...] 1 tablet (100 mcg total) by mouth strategic partner development manager before breakfast 07/31/20 21 Active ferrous sulfate 325 mg (65 mg of elemental iron) tabletIndicatio ns:Iron Deficiency Anemia Take 1 tablet (65 mg of elemental iron total) by mouth every other day In AM 07/26/20 23 Active losartan (COZAAR) 25 mg tabletIndicatio ns:hypertension Take 1 tablet (25 mg total) by mouth nightly Active sod hqiyh-slbkgp-wk ueez bottle 2,300-700 mg kit Administer 2 [...] unspecified hepatic cirrhosis type Coronary arteriosclerosis in [place] artery 06/22 Overview (01/21/2017): Coronary artery disease involving [place] coronary artery of [place] heart without angina pectoris Mixed diabetic hyperlipidemi [...] Description 02/16/2025 2:00 PM CDT Ancillary Procedure [facility] Cardiology at [address] [place] [phone] Nonrheumatic aortic valve stenosis 02/09/2025 Results Follow-Up [facility] Cardiology at [address] [place] [phone] Sherrell Sunshine MD CTA Heart and Coronary Arteries W Morphology when Performed 02/08/2025 12:51 PM CDT - 02/08/2025 11:59 PM CDT Hospital Encounter [facility] [address] [place] [address] Atypical chest pain; Coronary artery calcification seen on CT scan Discharge Disposition: Discharge to home or self care 02/07/2025 3:20 PM CDT Office Visit [facility] [address] [facility] [address] [place] [address] Samir Khan MD Chronic pansinusitis (Primary Dx) 01/22/2025 Telephone [facility] Cardiology [address] [facility] [address] [place] [phone] Sherrell Sunshine MD 01/16/2025 Results Follow-Up [facility] Cardiology at [address] [place] [phone] Sherrell Sunshine MD US Carotids Duplex Bilateral, Transthoracic Echo (TTE) Complete W Doppler/CF 01/12/2025 10:00 AM CDT Ancillary Procedure [facility] Vascular and Vein Surgery at [address] [place] [phone] Dizziness; Diplopia 01/09/2025 3:00 PM CDT Office Visit [facility] Cardiology [address] [place] [address] Sherrell Sunshine MD Dizziness (Primary Dx); Diplopia; Atypical chest pain; Coronary artery calcification seen on CT scan; Nonrheumatic aortic valve stenosis 12/07/2024 11:20 AM TEA BAG MACHINE TENDER Office Visit [facility] ([facility]) - [facility] ENT [address] [facility] 11th [place] [address] [place] [address] Samir Khan MD Chronic pansinusitis (Primary Dx) [...] Mother Brianna Villaseñor Hypertension; Stroke Mother Brianna Villaseoñr Stroke; Anesthesia problems Neg Hx Relation Name [...] on file Legal Sex Female 3:37 AM TEA BAG MACHINE TENDER Gender Identity Female 01/28/2024 11:49 PM CDT Sexual Orientation Straight 08/12/2022 12 :04 PM CDT Obstetrics History Last Filed Vital Signs Vital Sign Reading Time Taken Comments Blood Pressure 157/59 02/08/2025 1:39 PM CDT Pulse 64 02/08/2025 1:39 PM CDT Temperature 36 C (96.8 F) 12/17/2023 1:10 PM TEA BAG MACHINE TENDER Respiratory Rate 16 05/31/2024 12:56 PM CDT [...] PM CDT Narrative 02/17/2025 10:[address] [facility] Cardiology [address] [facility], [address], [place] [address] P:[phone] P:[phone] Echocardiographic Report Patient Name: MAGGIE ERAZO A [...] FINDINGS: Interpretation Site: Exam was interpreted at [facility]. Left Ventricle: Normal left ventricular systolic function. [...] regurgitation. Electronically Signed By: Dr. Jeana Eden [facility] 02/17/2025 10:40:58 AM CDT Procedure Note Jeana Eden MD - 02/17/2025 [facility] Medical Group Cardiology [address] [facility], [address], [place] [address] P:[phone] P:[phone] Echocardiographic Report Patient Name: MAGGIE ERAZO A [...] FINDINGS: Interpretation Site: Exam was interpreted at [facility]. Left Ventricle: Normal left ventricular systolic function. [...] regurgitation. Electronically Signed By: Dr. Jeana Eden [facility] 02/17/2025 10:40:58 AM CDT us Sherrell [...] POCT ORDERABLES - DEV ICE Final Result [facility] Department [place] [address] * US Carotids Duplex Bilateral (01/12/2025 10:34 AM CDT) Anatomical Region Laterality Modality Vascular Bilateral Ultrasound 01/12/2025 10:1 0 AM CDT Narrative 01/13/2025 8:30 AM CDT Vascular & Vein Surgery [address] [facility] [place] [address] Carotid Duplex Ultrasound Report Patient Name: MAGGIE ERAZO A : 1940 (84y 1m) Study Date: 01/12/2025 10:10:45 AM Gender: F Soliciting Freight Agent: Location: [facility] Ref Provider: SHERRELL SUNSHINE Quality: [...] - 01/13/2025 Vascular & Vein Surgery [address] [place] [address] Carotid Duplex Ultrasound Report Patient Name: MAGGIE ERAZO A : 1940 (84y 1m) Study Date: 01/12/2025 10:10:45 AM Gender: F Soliciting Freight Agent: Location: [facility] Ref Provider: SHERRELL SUNSHINE Quality: Adequate [...] Recently Relevant to Health Maintenance Insurance MEDICARE [facility] MEDICARE [facility] FEDERAL Member Subscriber Plan / Payer (Ef fective 2015-Present) Name:Kacey Maggie A Relation to Subscriber:Spouse Name:Kacey Ysabel Gongora Date of :1939 (Home) Address: [address] [place] [address] Payer ID:[id number] (NAIC) Group ID:[id number] Type:[facility] Address: [address] [place] [id number] Care Teams Assistant Terminal Manager Relationship Specialty Start Date End Date Isreal Lin MD PCP - General Family Practice 08/30/23
--- OUTSIDE RECORDS SUMMARY | 2025-03-02 11:59 | XMS_ITS | Clinical Summary ---
Author Organization [facility] Address [address] [facility] [place] [address] Care Team Providers Care Hydropulper Operator Name Role Phone Unknown, Provider Primary Care Provider Unavaila ble Source Comments [facility],non-owned Affiliates and Associated Physician Practices is amultiple site organization consisting of ambulatory clinics and hospital sitesin [place], [place], [place] and [place]. This disclosure is being madepursuant to the Care Everywhere program and may not contain all information available regarding this patient. Last updated 18.[facility] [employer] Allergies Active Allergy Reactions Criticality Noted Date [...] 1 (one) tablet by mouth once daily 01/29/20 18 Active metFORMIN (GLUCOPHAGE) 500 MG tablet 1 (one) tablet 2 times daily with morning and evening meal 05/12/20 15 Active Calcium Carbonate-Leena min D (CALCIUM-CARB 600 + D PO) Take 1 tablet by mouth Active multivitamin (OPURITY) CHEW tablet take 1 tablet by oral route every day with food 05/13/20 15 Active aspirin (ASPIRIN) 81 MG tablet Take [...] by mouth daily before breakfast Active Pediatric Multivit-Procurement Clerk als-C (COMPLETE MULTI-VITAMIN PO) Take by mouth once daily Active ferrous sulfate 325 (65 FE) MG tablet Take 1 (one) tablet by mouth every 2 days Active nadolol (Corgard) 40 MG tablet Take 1 tablet by mouth once daily 90 tablet 02/14/20 25 Active spironolactone (Aldactone) 50 MG tablet Take 1 tablet by mouth once daily 30 tablet 02/22/20 25 Active furosemide (Lasix) 20 MG tablet Take 1 tablet by mouth once daily 30 tablet 02/22/20 25 Active spironolactone (Aldactone) 50 MG tablet Take 1 (one) tablet by mouth once daily 30 tablet 5 08/14/20 24 025 Discontinued furosemide (Lasix) 20 MG tablet Take 1 (one) tablet by mouth once daily 30 tablet 5 08/14/20 24 025 Discontinued nadolol (Corgard) 40 MG tablet Take 1 tablet by mouth once daily 90 tablet 10/25/19 25 025 Discontinued Active Problems Problem Noted [...] came back positive for invasive ductal carcinoma ER/TX positive HER2/duncan negative and Ki-67 of 10%. Status post right-sided lumpectomy done on June 28, 2024. Pathology showed invasive ductal carcinoma 0.5 cm with negative margins. 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 No biopsy. 09/20/12 US ([place]): fatty liver, no focal lesions 05/08/13 EGD [...] no focal lesions, no mention of ascites [facility] 02/03/22 US: nodular liver, no focal lesions, [...] PV, no mention of ascites 08/05/24 US ([place]): nodular liver, patent PV but flow suggests [...] came back positive for invasive ductal carcinoma ER/TX positive HER2/duncan negative and Ki-67 of 10%. Status post right-sided lumpectomy done on June 28, 2024. Pathology showed invasive ductal carcinoma 0.5 cm with negative margins. Type 2 diabetes mellitus 04/21/2012 Resolved Problems Problem Noted Date Diagnosed Date Resolved Date H/O: CVA (cerebrovascular accident) 08/30/2023 01/24/2025 Encounters Date Type Department Care Team Description 02/21/2025 Refill [facility] - [address], [place] [address] Humphrey Esquivel MD Refill Request 02/13/2025 Refill [facility] - [address] [address] Humphrey Esquivel MD Refill Request 01/19/2025 Telephone [facility] - [address], [place] [address] Humphrey Esquivel MD Med Question 01/19/2025 Refill [facility] - [address] [address] Humphrey Esquivel MD Refill Request from Last [...] on file Legal Sex Female 5:32 PM LEARNING DEVELOPER Gender Identity Not on file Sexual Orientation Straight 08/11/2024 10 :05 AM CDT Last Filed Vital Signs Vital Sign Reading Time Taken Comments Blood Pressure 124/67 10/23/2024 10:52 AM LEARNING DEVELOPER Pulse 56 10/23/2024 10:52 AM LEARNING DEVELOPER Temperature 36.8 C (98.3 F) 10/23/2024 10:52 AM LEARNING DEVELOPER Respiratory Rate 14 10/25/2023 9:34 AM LEARNING DEVELOPER Oxygen Saturation 100% 10/23/2024 10:52 AM LEARNING DEVELOPER Inhaled Oxygen Concentration - - Weight 66.7 kg (147 lb) 10/23/2024 10:52 AM LEARNING DEVELOPER Height 160 cm (5' 3 ) 10/23/2024 10:52 AM LEARNING DEVELOPER Body Mass Index 26.04 10/23/2024 10:52 AM LEARNING DEVELOPER Plan of Treatment Upcoming Encounters Date Type Department Care Team (Late st Contact Info) Description 10/29/2025 10:00 AM LEARNING DEVELOPER Office Visit [facility] - GI [address] [place] [address], [place] [address] Humphrey Esquivel MD [facility] [place] [address] Health Maintenance Due Date Last Done Comments [...] Management General On track( 025 10:41 AM LEARNING DEVELOPER) Emre Broussard RN Note: Expected end date: Interventions: Take all medications as prescribed Let your doctor know right away about any changes in your medications Make sure to request a refill of your medication at least one week prior to your last dose Procedures Procedure Name Priority Date/Time Associated Diagnosis Comments IMAGING/RADIOLOGY/XRAY RESULTS ORDER 02/05/2025 IMAGING/RADIOLOGY/XRAY RESULTS ORDER 02/05/2025 MAMMOGRAM 02/01/2025 COMPREHENSIVE METABOLIC PANEL Routine 10/25/2023 11:42 AM LEARNING DEVELOPER Liver cirrhosis secondary to MASH MICROALB/CREAT RATIO URINE (EXTERNAL RESULT ENTRY) Routine 08/27/2020 HEMOGLOBIN A1C (EXTERNAL RESULT ENTRY) Routine 08/27/2020 from Last 3 Months or Most Recently Relevant to Health Maintenance Results * IMAGING/RADIOLOGY/XRAY RESULTS ORDER (02/05/2025) Only the most recent of2 resultswithin the time period is included. Anatomical Region Laterality Modality Other 02/05/2025 Narrative 02/05/2025 Ordered by an unspecified provider. us Scanned Document IMAGING Final Result * MAMMOGRAM (02/01/2025) Anatomical Region Laterality Modality Other 02/01/2025 Narrative 02/01/2025 Ordered by an unspecified provider. us Scanned Document SCANNING ONLY Final Result * (ABNORMAL) COMPREHENSIVE METABOLIC PANEL (10/25/2023 11:42 AM [facility]) BUN 12 7 - 26 mg/dL 10/25/2023 12:31 PM [facility] Creatinine 0.74 0.56 - 0.96 mg/dL 10/25/2023 12:31 PM [facility] Sodium 144 136 - 145 mmol/L 10/25/2023 12:31 PM [facility] Potassium 4.1 3.5 - 4.5 mmol/L 10/25/2023 12:31 PM [facility] Chloride 108(H) 98 - 107 mmol/L 10/25/2023 12:31 PM [facility] CO2 27 22 - 29 mmol/L 10/25/2023 12:31 PM [facility] Glucose 130(H) 70 - 115 mg/dL 10/25/2023 12:31 PM [facility] Calcium 8.9 8.4 - 10.2 mg/dL 10/25/2023 12:31 PM [facility] Protein Total 6.8 6.0 - 8.3 g/dL 10/25/2023 12:31 PM [facility] Albumin 3.4 3.4 - 5.0 g/dL 10/25/2023 12:31 PM [facility] Bilirubin Total 2.1(H) 0.2 - 1.2 mg/dL 10/25/2023 12:31 PM [facility] Alkaline Phosphatase 88 40 - 150 U/L 10/25/2023 12:31 PM [facility] ALT 33 5 - 55 U/L 10/25/2023 12:31 PM [facility] AST 46(H) 5 - 34 U/L 10/25/2023 12:31 PM [facility] Anion Gap 9 6 - 16 10/25/2023 12:31 PM [facility] BUN/Creatinine Ratio 16 7 - 23 10/25/2023 12:31 PM [facility] Osmolality Calculated 300(H) 275 - 295 mOsm/kg 10/25/2023 12:31 PM [facility] Albumin/Globulin Ratio 1.0(L) 1.1 - 2.3 10/25/2023 12:31 PM [facility] eGFR by CKD-EPI 81(L) >=90 mL/min/1.7 3 m2 10/25/2023 12:31 PM [facility] Blood BLOOD SPECIMEN / Unknown Lab Venipuncture / Unknown 10/25/2023 11:42 AM LEARNING DEVELOPER 10/25/2023 12:01 PM LEARNING DEVELOPER Result [facility] Humphrey Esquivel MD LAB - CHEMISTRY OR DERABLES Final Result [facility] [address] [place] [address], [facility] [phone] * MICROALB/CREAT RATIO URINE (EXTERNAL RESULT ENTRY) (08/27/2020) Microalb/Creat Ratio (EXTERNAL RESULT) 0 0 - 29 mg/g Urine URINE / Unknown 08/27/2020 Result [facility] Historical Provider LAB - URINE CHEMISTRY ORD ERABLES Final Result * (ABNORMAL) HEMOGLOBIN A1C (EXTERNAL RESULT ENTRY) (08/27/2020) Hemoglobin A1c (EXTERNAL RESULT) 6.9(A) 4.0 - 6.0 % Blood BLOOD SPECIMEN / Unknown 08/27/2020 Result [facility] Historical Provider LAB - CHEMISTRY ORDERABLE S Final Result from Last 3 Months or Most Recently Relevant to Health Maintenance Insurance MEDICARE [facility] MEDICARE Care Teams Hydropulper Operator Relationship Specialty Start Date End Date Unknown, Provider PCP - General 10/23/24
--- OUTSIDE RECORDS SUMMARY | 2025-03-02 11:59 | XMS_ITS | Encounter Summary ---
Author Organization [facility] Healthcare Address [address] [facility] [place] [address] Care Team Providers Care Factory Representative Name Role Phone Isreal Lin MD Primary Care Provider [phone] Encounter Details Date Type Department Care Team (Late st Contact Info) Description 02/09/2025 Results Follow-Up [facility] Medical Group Cardiology at [address] [place] [address] Maxi Hutton MD [address] [address] CTA Heart and Coronary Arteries W Morphology when Performed Social History Tobacco Use Types Packs/Day Years [...] on file Legal Sex Female 3:37 AM RESEARCH CHEF Gender Identity Female 01/28/2024 11:49 PM CDT Sexual Orientation Straight 08/12/2022 12 :04 PM CDT documented as of this encounter Plan of Treatment Not on file documented as of this encounter Visit Diagnoses Not on filedocumented in this encounter Care Teams Factory Representative Relationship Specialty Start Date End Date Isreal Lin MD PCP - General Family Practice 08/30/23 documented as of this encounter
--- OUTSIDE RECORDS SUMMARY | 2025-03-02 12:00 | XMS_ITS | Clinical Summary ---
Author Organization [facility] Melia Keenan Address [address] [place] [address] Care Team Providers Care Live Source Operator Name Role Phone Unavailable Primary Care Provider Unavailabl e Allergies Active Allergy Reactions Criticality Noted Date Comments Adhesive Tape-Silicones Other (See Comments) 11/17/2021 Codeine Nausea and Vomiting,Shortness of Breath/Wheezing High 04/21/2012 Acute abd. pain Acute abd. pain, Acute abd. pain, Acute abd. pain, Acute abd. pain Diphenhydramine Hcl Hives High 03/16/2013 Ywvnzcp-Fkr-Qtz Reductase Inhibitors Muscle Pain,Rash Medium 09/11/2019 Medications [...] Encounters Date Type Department Care Team Description 02/28/2025 External Device Data STL ABSTRACTION Provider, Abstract 02/27/2025 External Device Data STL ABSTRACTION Provider, Abstract 02/15/2025 11:00 AM CDT Office Visit [facility] Oncology and Hematology [facility] [address] [place] [address] Devin Mcintyre MD Malignant neoplasm of right breast in female, estrogen receptor positive, unspecified site of breast (CMS/HCC) (Primary Dx); Visit for screening mammogram 02/05/2025 Orders Only [facility] Oncology and Hematology [facility] [address] [place] [address] Devin Mcintyre MD 12/19/2024 Chart Note [facility] Radiation Therapy [address] [place] [address] Elijah Gonzalez MD from Last 3 Months Family History Medical [...] Sign Reading Time Taken Comments Blood Pressure 131/61 02/15/2025 10:44 AM CDT Pulse 62 02/15/2025 10:44 AM CDT Temperature 36.1 C (97 F) 02/15/2025 10:44 AM CDT Respiratory Rate 15 02/15/2025 10:4 4 AM CDT Oxygen Saturation 98% 02/15/2025 10: 44 AM CDT Inhaled Oxygen Concentration - - Weight 69.3 kg (152 lb 12.8 oz) 025 10:44 AM CDT Height 160 cm (5' 3 ) 05/25/2024 1:44 PM CDT Body Mass Index 27.07 05/25/2024 1:44 PM CDT Plan of Treatment Upcoming Encounters Date Type Department Care Team (Late st Contact Info) Description 05/21/2025 2:45 PM CDT Office Visit [facility] Oncology and Hematology - Luis [address] [facility] [address] [place] [address] Devin Mcintyre MD [address] [facility] [address] [place] [address] Health Maintenance Due Date Last [...] history exists OSTEOPOROSIS SCREENING 03/27/2027 03/27/2022, 2019 Procedures Procedure Name Priority Date/Time Associated Diagnosis Comments CANCER ANTIGEN 15-3 Routine 02/01/2025 1 2:55 PM CDT COMPREHENSIVE METABOLIC PANEL Routine 02/01/2025 9:20 AM CDT from Last 3 Months Results * CANCER ANTIGEN 15-3 (02/01/2025 12:55 PM CDT) Blood us Devin Mcintyre MD CHEMISTRY ORDERABLES Final Resu lt * COMPREHENSIVE METABOLIC PANEL (02/01/2025 9:20 AM CDT) Blood us Devin Mcintyre MD CHEMISTRY ORDERABLES Final Resu lt from Last 3 Months Insurance MEDICARE PART A AND B [facility]
--- OUTSIDE RECORDS SUMMARY | 2025-03-02 12:00 | XMS_ITS | Continuity of Care Document ---
Author Organization [facility] Address [address] [place] [address] Phone Care Team Providers Care College Admissions Counselor Name Role Phone Nicola Mcwilliams Unavailable Unavailable [...] Diagnoses Date Provider Providers Copied on Encounter [facility], [address] [place] [address] [address], [place], [place], [id number], [place] tel:[phone] SEC [facility] No Information 0-201 0 Poppy Petersen. Francisco [facility] [place] [address], [place], [address], [place]. tel:[phone] Referring Provider: Francisco Javier [facility]anc [facility] [address], [place], [address]. tel:[phone] [facility], [id number] [place] [address] [address], [place], [place], [address], [place] tel:[phone] SEC [place] [facility] No Information Jul-0 5-200 9 Poppy Edestuardo. [address] [facility] , [address], [place], [address], [place]. tel:[phone] [facility], [address], [place], [place], [address], tel:[phone] SEC [facility] No Information Sep-1 2-200 8 Doiterence Petersen. [address] [facility] [place] , [address], [place], [address], [place]. tel:[phone] Office/outpat ient Visit, [facility], [address], [place], [place], [id number], [place] tel:[phone] SEC [facility] No Information Darell-2 5-200 7 Poppy Petersen. [address] [facility] , [address], [place], [address], [place]. tel:[phone] Family History Family Member Type Diagnosis Age At Onset No Information Payers Payer name Insurance type Covered democrat ID Authoriza tion(s) Medicare [facility] [id number] [id number] Social History Type Description Quantity Date Captured [...]
[2025-03-02 12:21] LABS: Hematocrit 30.4 % (37.0-47.0); Hemoglobin 10.3 g/dL (12.0-15.0); Immature Platelet Fraction Pct 2.9 % (0.9-11.2); Mean Corpuscular HGB Conc 33.9 g/dl (32-36); Mean Corpuscular Hemoglobin 34.2 pg (26-34); Platelet Count Result 64 k/mm3 (150-375); Red Blood Count 3.01 M/mm3 (4.2-5.4); Red Cell Distribution Width 13.3 % (11.5-14.5); White Blood Count 2.7 K/mm3 (4.5-10.0)
[2025-03-02 12:34] LABS: Alanine Aminotransferase 28 U/L (6-35); Albumin Level 3.6 g/dL (3.5-5.1); Alkaline Phosphatase 95 U/L (38-126); Anion Gap 6 mmol/L (4-12); Aspartate Amino Transferase 41 U/L (14-36); Bilirubin,Total 1.4 mg/dL (0.2-1.3); Blood Urea Nitrogen 27 mg/dL (7-17); Calcium 8.8 mg/dL (8.4-10.2); Carbon Dioxide 25 mmol/L (22-30); Chloride 106 mmol/L (98-107); Cholesterol 142 mg/dL (0-200); Estimated Glomerular Filt Rate 49; Glucose 142 mg/dL (65-110); HDL Direct 53 mg/dL; Potassium 4.4 mmol/L (3.4-5.0); Sodium 137 mmol/L (137-145); Triglycerides 92 mg/dL (<150)
[2025-03-02 12:47] LABS: LDL Cholesterol Direct 66 mg/dL
[2025-03-02 13:58] LABS: Iron 99 ug/dL (37-170)
[2025-03-02 14:07] LABS: Percent Iron Saturation 32 % (20-50)
[2025-03-02 18:11] LABS: Hemoglobin A1C 6.3 % (<5.7)
== END 2025-03-02 11:57 | disposition home or self-care (01) ==
PROVIDERS: PCP Family Medicine; Visit Provider Family Medicine
DX: E87.6 Hypokalemia (principal); I10 Essential (primary) hypertension; R29.90 Unspecified symptoms and signs involving the nervous system; K58.9 Irritable bowel syndrome, unspecified; E07.9 Disorder of thyroid, unspecified; E11.9 Type 2 diabetes mellitus without complications
CPT/HCPCS: 36415; 80053; 80061; 82607; 83036; 83540; 83550; 84443; 85027; 85055

== ENCOUNTER 2025-05-12 15:50 | Emergency (ER) | payer MEDICARE, BC, SELFPAY ==
[2025-05-12] VITALS (11 sets, daily range): BP systolic 131–160; BP diastolic 54–85; PULSE 66–71; RESP 12–16; TEMP 36.3; O2SAT 96–100
--- NOTE | ~2025-05-12 | CT_ITS ---
EXAMINATION: CT abdomen pelvis w con DATE: 05/12/2025 16:51 INDICATION: ab pain TECHNIQUE: Computed tomography (CT) of the abdomen and pelvis was performed with 100 mL Omnipaque-350 intravenous contrast. Automated exposure control and iterative reconstruction technique were employe d. The dose-length product was 370.38 mGy-cm. COMPARISON: 09/22/2024. FINDINGS: Lower thorax: Coronary artery, aortic valve, and mitral calcifications. Mild cardiomegaly. Septal thi ckening and peripheral reticulations in the lung bases. Liver: Small liver. Nodular border. Heterogeneous parenchymal enhancement no mass. Biliary/Gallbladder: Gallbladder is absent. No bile duct dilation. Pancreas: No mass or duct dilation. Spleen: Markedly enlarged. Multiple subcentimeter hypodensities, likely representing cysts or hemangi omas. Adrenals:No mass. Kidneys: No suspicious mass, obstructing stone, or hydronephrosis. Bilateral renal atrophy and cortic al thinning. GI tract: Small hiatal hernia. Severe distal esophageal and gastric wall edema/fluid. No small or lar ge bowel dilation. Normal appendix. Diverticulosis without diverticulitis. Mesentery/Peritoneum: Moderate volume simple ascites. Dilated portal and mesenteric veins. Upper abdo venancio varices. Retroperitoneum: No mass. Atherosclerotic calcifications of intra-abdominal arterial vessels. Pelvis: Normal urinary bladder. Small uterine fibroid. Normal bilateral ovaries. Prominent left pelvi c veins. Soft Tissues: Small fat and fluid containing umbilical hernia. Bones: No acute osseous finding. Grade 1 anterolisthesis at L4-5. IMPRESSION: Mild interstitial edema and possible chronic interstitial change in the lungs. Cirrhosis with portal hypertension. Marked splenomegaly. Severe distal esophageal and gastric wall edema, may represent esophagitis/gastritis and/or ascitic f luid. Prominent left pelvic veins may represent varices from portal hypertension or pelvic congestion. Small fat and fluid containing umbilical hernia, correlate for signs of inflammation and pain/tendern ess. Reviewed, dictated and finalized at location K. IMPRESSION: Mild interstitial edema and possible chronic interstitial change in the lungs. Cirrhosis with portal hypertension. Marked splenomegaly. Severe distal esophageal and gastric wall edema, may represent esophagitis/sergey ritis and/or ascitic fluid. Prominent left pelvic veins may represent varices from portal hypertension or p elvic congestion. Small fat and fluid containing umbilical hernia, correlate for signs of inflamm ation and pain/tenderness.
--- OUTSIDE RECORDS SUMMARY | 2025-05-12 15:52 | XMS_ITS | Continuity of Care Document ---
Author Organization [facility] Address [address] [place] [address] Phone Care Team Providers Care Construction Supervisor/Carpenter Name Role Phone Nicola Mcwilliams Unavailable Unavailable [...] Diagnoses Date Provider Providers Copied on Encounter [facility], [address] [place] [address] [address], [place], [place], [id number], [place] tel:[phone] [facility] No Information 0-201 0 Poppy Petersen. Francisco [facility] [place] [address], [place], [address], [place]. tel:[phone] Referring Provider: Francisco Javier [facility]blanc [facility] [address], [place], [address]. tel:[phone] [facility], [address] [place] [address] [address], [place], [place], [address], [place] tel:[phone] SEC [place] [facility] No Information Jul-0 5-200 9 Poppy Edestuardo. [address] [facility] , [address], [place], [address], [place]. tel:[phone] [facility], [address], [place], [place], [address], tel:[phone] SEC [facility] No Information Sep-1 2-200 8 Doiterence Petersen. [address] [facility] , [address], [place], [address], [place]. tel:[phone] Office/outpat ient Visit, [facility], [address], [place], [place], [address], [place] tel:[phone] SEC [facility] No Information Darell-2 5-200 7 Poppy Petersen. [address] [facility] , [address], [place], [address], [place]. tel:[phone] Family History Family Member Type Diagnosis Age At Onset No Information Payers Payer name Insurance type Covered alliance party ID Authoriza tion(s) Medicare [facility] [id number] [facility] [id number] Social History Type Description Quantity Date Captured [...]
--- OUTSIDE RECORDS SUMMARY | 2025-05-12 15:53 | XMS_ITS | Referral Summary ---
Author Organization [facility] [address] Address [address] [place] [address] Care Team Providers Care Foamite Mixer Name Role Phone Isreal Lin MD Primary Care Provider [phone] Encounters Date Type Department Care Team Description 03/28/2025 2:20 PM CDT Office Visit [facility] [address] [facility] Medical Office Building [address] [place] [address] Samir Khan MD Chronic pansinusitis (Primary Dx); Nasal polyps 02/16/2025 2:00 PM CDT Ancillary Procedure [facility] Cardiology at [address] [place] [address] Nonrheumatic aortic valve stenosis 02/09/2025 Results Follow-Up [facility] Cardiology at [address] [place] [address] Sherrell Sunshine MD [facility] Heart and Coronary Arteries W Morphology when Performed from Last 3 Months Allergies Active Allergy Reactions Criticality Noted Date Comments Adhesive Tape-Silicones Hives Medium 03/16/2013 Codeine Other (See comments) Low 04/21/2012 Acute abd. pain Acute abd. pain, Loratadine-Pseudoephed rine Other (See comments) Low 11/17/2021 Apslixz-Crj-Qpn Reductase Inhibitors Other (See comments) Low Medications [...] 1 tablet (100 mcg total) by mouth electric motor assembler before breakfast 07/31/20 21 Active ferrous sulfate 325 mg (65 mg of elemental iron) tabletIndicatio ns:Iron Deficiency Anemia Take 1 tablet (65 mg of elemental iron total) by mouth every other day In AM 07/26/20 23 Active losartan (COZAAR) 25 mg tabletIndicatio ns:hypertension Take 1 tablet (25 mg total) by mouth nightly Active sod epflm-ckvmft-lt ueez bottle 2,300-700 mg kit Administer 2 [...] 25 Active mupirocin (BACTROBAN) 2 % ointment DISSOLVE 1 INCH IN NASAL IRRIGATION BOTTLE AND RINSE TWICE DAILY 22 g 05/08/20 25 Active doxycycline 100 mg capsuleIndicati ons:Upper Respiratory/TIMOTEO NT Infection Take 1 tablet/capsule (100 mg total) by mouth 2 (two) times a day 84 tablet/caps ule 03/28/20 25 025 mupirocin (BACTROBAN) 2 % ointment APPLY TOPICALLY TWCIE DAILY DISSOVE 1 INCH IN NASAL IRRIGATION BOTTLE AND RINSE 22 g 04/04/20 25 025 Discontinued Active Problems Problem Noted Date Diagnosed Date Nasal polyps 03/28/2025 Diplopia 01/09/2025 Nonrheumatic aortic valve stenosis 05/31/2024 Pre-operative cardiovascular examination 024 Secondary esophageal varices without bleeding H/O: CVA (cerebrovascular accident) 08/30/2023 Systolic murmur 08/30/2023 Chronic sinusitis 08/16/2023 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 Dizziness 09/23/2020 Drug-induced gastric ulcer 09/11/2019 Acquired hypothyroidism 08/20/2017 Hepatic cirrhosis 06/22/2016 Overview (01/21/2017): Cirrhosis of liver without ascites, unspecified hepatic cirrhosis type Coronary arteriosclerosis in [place] artery 06/22 Overview (01/21/2017): Coronary artery disease involving [place] coronary artery of [place] heart without angina pectoris Mixed diabetic hyperlipidemi [...] on file Legal Sex Female 3:37 AM SKIN LIFTER BACON Gender Identity Female 01/28/2024 11:49 PM CDT Sexual Orientation Straight 08/12/2022 12 :04 PM CDT Last Filed Vital Signs Vital Sign Reading Time Taken Comments Blood Pressure 157/59 02/08/2025 1:39 PM CDT Pulse 64 02/08/2025 1:39 PM CDT Temperature 36 C (96.8 F) 12/17/2023 1:10 PM SKIN LIFTER BACON Respiratory Rate 16 05/31/2024 12:56 PM CDT Oxygen Saturation 99% 01/09/2025 3:19 PM CDT Inhaled Oxygen Concentration - - Weight 70.8 kg (156 lb) 03/28/2025 2:13 PM CDT Height 160 cm (5' 3) 03/28/2025 2:13 PM CDT Body Mass Index 27.63 03/28/2025 2:13 PM CDT Plan of Treatment Not on file Procedures Procedure Name Priority Date/Time Associated Diagnosis Comments TRANSTHORACIC ECHO (TTE) COMPLETE W DOPPLER/CF WO CONTRAST Routine 02/16/2025 2:16 PM CDT Nonrheumatic aortic valve stenosis LIPID PANEL Routine 02/17/2024 2:11 PM CDT from Last 3 Months or Most Recently Relevant to Health Maintenance Results * TRANSTHORACIC ECHO (TTE) COMPLETE W DOPPLER/CF WO CONTRAST (02/16/2025 2:16 PM CDT) EF Mod BP 76 % CONS SCIMAGE Anatomical Region Laterality Modality Ultrasound 02/16/2025 1:56 PM CDT Narrative 02/17/2025 10:41 AM CDT [facility] Cardiology [address] [facility], [address], [place] [address] P:[phone] P:[phone] Echocardiographic Report Patient Name: MAGGIE ERAZO A [...] FINDINGS: Interpretation Site: Exam was interpreted at [facility]. Left Ventricle: Normal left ventricular systolic function. [...] regurgitation. Electronically Signed By: Dr. Jeana Eden [facility] 02/17/2025 10:40:58 AM CDT Procedure Note Jeana Eden MD - 02/17/2025 [facility] Cardiology [address], [address], [place] [address] P:[phone] P:[phone] Echocardiographic Report Patient Name: MAGGIE ERAZO A [...] FINDINGS: Interpretation Site: Exam was interpreted at [facility]. Left Ventricle: Normal left ventricular systolic function. [...] regurgitation. Electronically Signed By: Dr. Jeana Eden [facility] 02/17/2025 10:40:58 AM CDT Sherrell Sunshine MD CV ECHO PROCEDURES Final Result * Lipid panel (02/17/2024 2:11 PM CDT) [...] Relevant to Health Maintenance Insurance MEDICARE [facility]ICARE [facility] FEDERAL MEDICARE [facility] FEDERAL Care Teams Foamite Mixer Relationship Specialty Start Date End Date Isreal Lin MD PCP - General Family Practice 08/30/23
--- OUTSIDE RECORDS SUMMARY | 2025-05-12 15:53 | XMS_ITS | Clinical Summary ---
Author Organization [facility] Address [address] [place] [address] Care Team Providers Care Chemical Processor Name Role Phone Unknown, Provider Primary Care Provider Unavaila ble Source Comments [facility],non-owned Affiliates and Associated Physician Practices is amultiple site organization consisting of ambulatory clinics and hospital sitesin [place], [place], [place] and [place]. This disclosure is being madepursuant to the Care Everywhere program and may not contain all information available regarding this patient. Last updated 18.[facility] Allergies Active Allergy Reactions Criticality Noted Date [...] by mouth daily before breakfast Active Pediatric Multivit-Rifton als-C (COMPLETE MULTI-VITAMIN PO) Take by mouth once daily Active ferrous sulfate 325 (65 FE) MG tablet Take 1 (one) tablet by mouth every 2 days Active nadolol (Corgard) 40 MG tablet Take 1 tablet by mouth once daily 90 tablet 02/14/20 25 Active furosemide (Lasix) 20 MG tablet Take 1 tablet by mouth once daily 30 tablet 05/07/20 25 Active spironolactone (Aldactone) 50 MG tablet Take 1 tablet by mouth once daily 30 tablet 05/07/20 25 Active furosemide (Lasix) 20 MG tablet Take 1 tablet by mouth once daily 30 tablet 03/27/20 25 025 Discontinued spironolactone (Aldactone) 50 MG tablet Take 1 tablet by mouth once daily 30 tablet 03/27/20 25 025 Discontinued Active Problems Problem Noted [...] came back positive for invasive ductal carcinoma ER/[place] positive HER2/duncan negative and Ki-67 of 10%. Status post right-sided lumpectomy done on June 28, 2024. Pathology showed invasive ductal carcinoma 0.5 cm with negative margins. Nonrheumatic aortic valve stenosis 05/31/2024 Hyperlipidemia 11/13/2019 Esophageal varices 04/24/2019 Overview (04/24/2019): 03/22/19 EGD ([facility]): moderate esophageal varices, 5 mm biopsied Hypertension 03/13/2018 Gilbert's syndrome 03/13/2018 Overview (03/13/2018): Direct bili usually 0.5 Coronary arteriosclerosis in [place] artery 06/22 Overview (01/24/2025): Coronary artery disease involving [place] coronary artery of [place] heart without angina pectoris Osteoarthritis 04/06/2016 Overview (01/10/2018): Left hip 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 No biopsy. 09/20/12 [place] ([facility]): fatty liver, no focal lesions 05/08/13 EGD [...] no focal lesions, no mention of ascites [facility] 02/03/22 [place]: nodular liver, no focal lesions, no ascites [facility] 07/24/22 US: nodular liver, no focal lesions, patent vessels, no mention of ascites [facility] 08/05/23 US: nodular liver, no mention of focal lesions, patent PV, trace ascites 10/26/23 US: echogenic liver, no focal lesions, patent vessels, trace ascites [facility] 06/06/24 US: nodular liver, no focal lesions, patent PV, no mention of ascites 08/05/24 [place] ([facility]): nodular liver, patent PV but flow suggests [...] came back positive for invasive ductal carcinoma ER/[place] positive HER2/duncan negative and Ki-67 of 10%. Status post right-sided lumpectomy done on June 28, 2024. Pathology showed invasive ductal carcinoma 0.5 cm with negative margins. Type 2 diabetes mellitus 04/21/2012 Resolved Problems Problem Noted Date Diagnosed Date Resolved Date H/O: CVA (cerebrovascular accident) 08/30/2023 01/24/2025 Encounters Date Type Department Care Team Description 05/04/2025 Refill [facility] - [place] [address] [facility] [place] [address] Humphrey Esquivel MD Refill Request 03/27/2025 Refill [facility] - [address] [address] Humphrey Esquivel MD Refill Request 02/21/2025 Refill [facility] - [address] [address] Humphrey Esquivel MD Refill Request 02/13/2025 Refill [facility] - [address] [phone] Humphrey Esquivel MD Refill Request from Last [...] on file Legal Sex Female 5:32 PM PRODUCT SUPPORT REP Gender Identity Not on file Sexual Orientation Straight 08/11/2024 10 :05 AM CDT Last Filed Vital Signs Vital Sign Reading Time Taken Comments Blood Pressure 124/67 10/23/2024 10:52 AM PRODUCT SUPPORT REP Pulse 56 10/23/2024 10:52 AM PRODUCT SUPPORT REP Temperature 36.8 C (98.3 F) 10/23/2024 10:52 AM PRODUCT SUPPORT REP Respiratory Rate 14 10/25/2023 9:34 AM PRODUCT SUPPORT REP Oxygen Saturation 100% 10/23/2024 10:52 AM PRODUCT SUPPORT REP Inhaled Oxygen Concentration - - Weight 66.7 kg (147 lb) 10/23/2024 10:52 AM PRODUCT SUPPORT REP Height 160 cm (5' 3) 10/23/2024 10:52 AM PRODUCT SUPPORT REP Body Mass Index 26.04 10/23/2024 10:52 AM PRODUCT SUPPORT REP Plan of Treatment Upcoming Encounters Date Type Department Care Team (Late st Contact Info) Description 10/29/2025 10:00 AM PRODUCT SUPPORT REP Office Visit [facility] - [place] [address] [facility] [place] [address] Humphrey Esquivel MD [facility] [place] [address] Health Maintenance Due Date Last Done Comments [...] 04/12/2023, 11/02/2022, Additional history exists INFLUENZA VACCINE (#1) 2025 HIB VACCINE Aged Out No longer [...] Management General On track( 025 10:41 AM [facility]) Emre Broussard RN Note: Expected end date: Interventions: Take all medications as prescribed Let your doctor know right away about any changes in your medications Make sure to request a refill of your medication at least one week prior to your last dose Procedures Procedure Name Priority Date/Time Associated Diagnosis Comments COMPREHENSIVE METABOLIC PANEL Routine 10/25/2023 11:42 AM PRODUCT SUPPORT REP Liver cirrhosis secondary to MASH MICROALB/CREAT RATIO URINE (EXTERNAL RESULT ENTRY) Routine 08/27/2020 HEMOGLOBIN A1C (EXTERNAL RESULT ENTRY) Routine 08/27/2020 from Last 3 Months or Most Recently Relevant to Health Maintenance Results * (ABNORMAL) COMPREHENSIVE METABOLIC PANEL (10/25/2023 11:42 AM [facility]) BUN 12 7 - 26 mg/dL 10/25/2023 12:31 PM [facility] Creatinine 0.74 0.56 - 0.96 mg/dL 10/25/2023 12:31 PM [facility] Sodium 144 136 - 145 mmol/L 10/25/2023 12:31 PM [facility] Potassium 4.1 3.5 - 4.5 mmol/L 10/25/2023 12:31 PM [facility] Chloride 108(H) 98 - 107 mmol/L 10/25/2023 12:31 PM [facility] CO2 27 22 - 29 mmol/L 10/25/2023 12:31 PM [facility] Glucose 130(H) 70 - 115 mg/dL 10/25/2023 12:31 PM [facility] Calcium 8.9 8.4 - 10.2 mg/dL 10/25/2023 12:31 PM [facility] Protein Total 6.8 6.0 - 8.3 g/dL 10/25/2023 12:31 PM [facility] Albumin 3.4 3.4 - 5.0 g/dL 10/25/2023 12:31 PM [facility] Bilirubin Total 2.1(H) 0.2 - 1.2 mg/dL 10/25/2023 12:31 PM [facility] Alkaline Phosphatase 88 40 - 150 U/L 10/25/2023 12:31 PM [facility] ALT 33 5 - 55 U/L 10/25/2023 12:31 PM [facility] AST 46(H) 5 - 34 U/L 10/25/2023 12:31 PM [facility] Anion Gap 9 6 - 16 10/25/2023 12:31 PM [facility] BUN/Creatinine Ratio 16 7 - 23 10/25/2023 12:31 PM [facility] Osmolality Calculated 300(H) 275 - 295 mOsm/kg 10/25/2023 12:31 PM [facility] Albumin/Globulin Ratio 1.0(L) 1.1 - 2.3 10/25/2023 12:31 PM [facility] eGFR by CKD-EPI 81(L) >=90 mL/min/1.7 3 m2 10/25/2023 12:31 PM [facility] Blood BLOOD SPECIMEN / Unknown Lab Venipuncture / Unknown 10/25/2023 11:42 AM PRODUCT SUPPORT REP 10/25/2023 12:01 PM [facility] Humphrey Esquivel MD LAB - CHEMISTRY OR DERABLES Final Result [facility] [address] [place] [address], [facility] [phone] * MICROALB/CREAT RATIO URINE (EXTERNAL RESULT ENTRY) (08/27/2020) Microalb/Creat Ratio (EXTERNAL RESULT) 0 0 - 29 mg/g Urine URINE / Unknown 08/27/2020 us Historical Provider LAB - URINE CHEMISTRY ORD ERABLES Final Result * (ABNORMAL) HEMOGLOBIN A1C (EXTERNAL RESULT ENTRY) (08/27/2020) Hemoglobin A1c (EXTERNAL RESULT) 6.9(A) 4.0 - 6.0 % Blood BLOOD SPECIMEN / Unknown 08/27/2020 us Historical Provider LAB - CHEMISTRY ORDERABLE S Final Result from Last 3 Months or Most Recently Relevant to Health Maintenance Insurance MEDICARE [facility] MEDICARE Care Teams Chemical Processor Relationship Specialty Start Date End Date Unknown, Provider PCP - General 10/23/24
--- OUTSIDE RECORDS SUMMARY | 2025-05-12 15:53 | XMS_ITS | Clinical Summary ---
Author Organization [facility] Melia Keenan Address [address] [place] [address] Care Team Providers Care Radiation Monitor Name Role Phone Unavailable Primary Care Provider Unavailabl e Allergies Active Allergy Reactions Criticality Noted Date Comments Adhesive Tape-Silicones Other (See Comments) 11/17/2021 Codeine Nausea and Vomiting,Shortness of Breath/Wheezing High 04/21/2012 Acute abd. pain Acute abd. pain, Acute abd. pain, Acute abd. pain, Acute abd. pain Diphenhydramine Hcl Hives High 03/16/2013 Auucgvl-Otc-Mfo Reductase Inhibitors Muscle Pain,Rash Medium 09/11/2019 Medications [...] Encounters Date Type Department Care Team Description 04/25/2025 External Device Data STL ABSTRACTION Provider, Abstract 04/25/2025 External Device Data STL ABSTRACTION Provider, Abstract 04/25/2025 External Device Data STL ABSTRACTION Provider, Abstract 04/24/2025 External Device Data STL ABSTRACTION Provider, Abstract 03/28/2025 External Device Data STL ABSTRACTION Provider, Abstract 03/27/2025 External Device Data STL ABSTRACTION Provider, Abstract 03/01/2025 External Device Data STL ABSTRACTION Provider, Abstract 02/28/2025 External Device Data STL ABSTRACTION Provider, Abstract 02/27/2025 External Device Data STL ABSTRACTION Provider, Abstract 02/15/2025 11:00 AM CDT Office Visit [facility] Oncology and Hematology - [place] [address] [facility] [address] [address] Devin Mcintyre MD Malignant neoplasm of right breast in female, estrogen receptor positive, unspecified site of breast (CMS/HCC) (Primary Dx); Visit for screening mammogram from Last 3 Months Family History Medical [...] 10:44 AM CDT Height 160 cm (5' 3) 05/25/2024 1:44 PM CDT Body Mass Index 27.07 05/25/2024 1:44 PM CDT Plan of Treatment Upcoming Encounters Date Type Department Care Team (Late st Contact Info) Description 05/21/2025 2:45 PM CDT Office Visit [facility] Oncology and Hematology - [place] [address] [facility] [address] [place] [address] Devin Mcintyre MD [address] [facility] [address] [place] [address] Health Maintenance Due Date Last [...] or Tdap) 10/11/2020 10/11/2010 INFLUENZA VACCINE (#1) 2025 DIABETES HBA1C Q 6 MONTHS 09/02/20252024, 02/17/2024, 08/19/2023, Additional history exists DIABETES ANNUAL RETINAL EXAM 01/17/202606/2025, 12/26/2024, 01/03/2024, Additional history exists OSTEOPOROSIS SCREENING 08/02/2029 4, 03/27/2022, 09/19/2020 Insurance MEDICARE PART A AND B [facility]
--- OUTSIDE RECORDS SUMMARY | 2025-05-12 15:53 | XMS_ITS | Encounter Summary ---
Author Organization [facility] Address [address] [facility] [place] [address] Care Team Providers Care Content Producer Name Role Phone Riley Isreal Primary Care Provider [phone] Unknown, Provider Primary Care Provider Unavaila ble Encounter Details Date Type Department Care Team (Late st Contact Info) Description 09/13/2024 Lab Requisition [facility] Lab [address] [place] [phone] Darcie Hernandez DO [address] [facility] 3 [place] [address] Social History Tobacco Use Types Packs/Day Years Used Date Smoking Tobacco: Never Smokeless Tobacco: Never Alcohol Use Standard Drinks/Week Comments No 0 (1 standard drink = 0.6 oz pur e alcohol) Comments Unknown Sex and Gender Information Value Date Recorded Sex Assigned at Not on file Legal Sex Female 5:32 PM DIRECTOR OF CAMPUS RECREATION Gender Identity Not on file Sexual Orientation Straight 08/11/2024 10 :05 AM CDT documented as of this encounter Plan of Treatment Upcoming Encounters Date Type Department Care Team (Late st Contact Info) Description 10/29/2025 10:00 AM DIRECTOR OF CAMPUS RECREATION Office Visit [facility] - GI [address] [place] [phone] Humphrey Esquivel, MD [address] [place] [address] documented as of this encounter Goals Goal Patient Goal Type Associated Problems Recent Progress Patient-Stated? Author Medication Management General On track( 025 10:41 AM DIRECTOR OF CAMPUS RECREATION) Emre Broussard, RN Note: Expected end date: Interventions: Take all medications as prescribed Let your doctor know right away about any changes in your medications Make sure to request a refill of your medication at least one week prior to your last dose documented as of this encounter Procedures Procedure Name Priority Date/Time Associated Diagnosis Comments DERMATOPATHOLOGY Routine 09/13/2024 9:03 AM DIRECTOR OF CAMPUS RECREATION documented in this encounter Results * DERMATOPATHOLOGY (09/13/2024 9:03 AM DIRECTOR OF CAMPUS RECREATION) Case Report Dermatopathology Report Case: [id number] Authorizing Provider: Darcie Hernandez DO Collected: 09/13/2024 09:03 AM Ordering Location: [facility] - Received: 09/13/2024 04:19 PM DermPath Lab Pathologist: Any Brown MD Specimen: Skin, right superior shoulder 4 4:05 PM [facility] DERMATOPATHOLOGY LABORATORY Final Diagnosis Specimen A. SKIN, right superior shoulder: BENIGN VERRUCOUS KERATOSIS, INFLAMED (L82.1) 4:05 PM [facility] DERMATOPATHOLOGY LABORATORY at [address] [facility] Clinical History R/O NMSC 4:05 PM [facility] DERMATOPATHOLOGY LABORATORY Gross Description Specimen A: Received is one formalin filled container labeled with the patient's name and designated right superior shoulder. The specimen consists of a shave biopsy measuring 4x4x4 mm. Jar 0. 4:05 PM [facility] DERMATOPATHOLOGY LABORATORY Microscopic Description Specimen A. SKIN, right superior shoulder: Sections show hyperkeratosis, papillomatosis, hypergranulosis, and acanthosis. Inflammatory cells are present within the dermis. These histological findings can be seen in a verruca vulgaris or a seborrheic keratosis. 4 4:05 PM [facility] DERMATOPATHOLOGY LABORATORY Disclaimer An external and internal positive and negative controls are appropriate for the histochemical, immunohistochemical and immunofluorescence stain(s) in this case (if any), except where stated explicitly. The performance characteristics of the stain(s) cited in this report were developed and its performance characteristic determined by the Dermatopathology Laboratory at [facility], directed by Dr. Javier Carias. These tests need not be, and therefore are not, approved by the [place] Food and Drug Administration. The tests are used for clinical purposes. Billing Codes Specimen Charges Stain Charges 01589 1 4 4:05 PM [facility] DERMATOPATHOLOGY LABORATORY Embedded Images 4 4:05 PM [facility] DERMATOPATHOLOGY LABORATORY Pathology/Cytolo gy TISSUE SPECIMEN FROM SKIN / Unknown 09/13/2024 9:03 AM DIRECTOR OF CAMPUS RECREATION 09/13/2024 4:19 PM DIRECTOR OF CAMPUS RECREATION Darcie Hernandez DO LAB - PATHOLOGY/CYTOLOGY ORDERABLES Final Result DERMATOPATHOLOGY LABORATORY [facility] - Department of Dermatology [facility] [address] [place] [address], [address]rd Floor [address] [phone] documented in this encounter Visit Diagnoses Not on filedocumented in this encounter Care Teams Content Producer Relationship Specialty Start Date End Date Isreal Lin [address] [place] [address] PCP - General Internal Medicine 10/25/23 10/22/24 Unknown, Provider PCP - General 10/23/24 documented as of this encounter
--- OUTSIDE RECORDS SUMMARY | 2025-05-12 15:53 | XMS_ITS | Clinical Summary ---
Author Organization [facility] [address] Address [address] [place] [address] Care Team Providers Care Printed Circuit Board Drafter Name Role Phone Isreal Lin MD Primary Care Provider [phone] Allergies Active Allergy Reactions Criticality Noted Date Comments Adhesive Tape-Silicones Hives Medium 03/16/2013 Codeine Other (See comments) Low 04/21/2012 Acute abd. pain Acute abd. pain, Loratadine-Pseudoephed rine Other (See comments) Low 11/17/2021 Mrhrwlq-Pya-Hin Reductase Inhibitors Other (See comments) Low Medications [...] 1 tablet (100 mcg total) by mouth early childhood worker before breakfast 07/31/20 21 Active ferrous sulfate 325 mg (65 mg of elemental iron) tabletIndicatio ns:Iron Deficiency Anemia Take 1 tablet (65 mg of elemental iron total) by mouth every other day In AM 07/26/20 23 Active losartan (COZAAR) 25 mg tabletIndicatio ns:hypertension Take 1 tablet (25 mg total) by mouth nightly Active sod tyaan-qooxcj-ki ueez bottle 2,300-700 mg kit Administer 2 [...] unspecified hepatic cirrhosis type Coronary arteriosclerosis in [place] artery 06/22 Overview (01/21/2017): Coronary artery disease involving [place] coronary artery of [place] heart without angina pectoris Mixed diabetic hyperlipidemi [...] Description 03/28/2025 2:20 PM CDT Office Visit [facility] ENT [address] [facility] Medical Office Building [address] [place] [address] Samir Khan MD Chronic pansinusitis (Primary Dx); Nasal polyps 02/16/2025 2:00 PM CDT Ancillary Procedure [facility] Cardiology at [address] [place] [address] Nonrheumatic aortic valve stenosis 02/09/2025 Results Follow-Up [facility] Cardiology at [address] [place] [address] Sherrell Sunshine MD CTA Heart and Coronary Arteries W Morphology when Performed from Last 3 Months Surgical History Surgery [...] 2003 Liver disease 2012 Deep vein thrombosis (HCC) 2014 Anemia 2021 Diabetes mellitus (HCC) [...] on file Legal Sex Female 3:37 AM BRICKLAYER SUPERVISOR Gender Identity Female 01/28/2024 11:49 PM CDT Sexual Orientation Straight 08/12/2022 12 :04 PM CDT Obstetrics History Last Filed Vital Signs Vital Sign Reading Time Taken Comments Blood Pressure 157/59 02/08/2025 1:39 PM CDT Pulse 64 02/08/2025 1:39 PM CDT Temperature 36 C (96.8 F) 12/17/2023 1:10 PM BRICKLAYER SUPERVISOR Respiratory Rate 16 05/31/2024 12:56 PM CDT Oxygen Saturation 99% 01/09/2025 3:19 PM CDT Inhaled Oxygen Concentration - - Weight 70.8 kg (156 lb) 03/28/2025 2:13 PM CDT Height 160 cm (5' 3) 03/28/2025 2:13 PM CDT Body Mass Index 27.63 03/28/2025 2:13 PM CDT Plan of Treatment Health Maintenance [...] 08/12, 02/09/2022, Additional history exists Influenza Vaccine (#1) 2025 , 08/02/2019, 08/30/2018, Additional history exists Pneumococcal vaccine [...] [facility] Cardiology [address], [address], [place] [address] P:[phone] P:[phone] Echocardiographic Report Patient Name: MAGGIE ERAZO A [...] FINDINGS: Interpretation Site: Exam was interpreted at [facility]. Left Ventricle: Normal left ventricular systolic function. [...] regurgitation. Electronically Signed By: Dr. Jeana Eden [facility] 02/17/2025 10:40:58 AM CDT Procedure Note Jeana Eden MD - 02/17/2025 [facility] Medical Group Cardiology [address], [address], [place] [address] P:[phone] P:[phone] Echocardiographic Report Patient Name: MAGGIE ERAZO A [...] FINDINGS: Interpretation Site: Exam was interpreted at [facility]. Left Ventricle: Normal left ventricular systolic function. [...] regurgitation. Electronically Signed By: Dr. Jeana Eden [facility] 02/17/2025 10:40:58 AM CDT Sherrell Sunshine MD [...] Relevant to Health Maintenance Insurance MEDICARE MEDICARE [facility] Address: [address] [place] [address] MEDICARE [facility] Address: [address] [place] [id number] Care Teams Printed Circuit Board Drafter Relationship Specialty Start Date End Date Isreal Lin MD PCP - General Family Practice 08/30/23
[2025-05-12 16:45] LABS: Estimated CRCL calculation 30 ml/min; Estimated Glomerular Filt Rate 43
[2025-05-12 16:55] LABS: Hematocrit 31.8 % (37.0-47.0); Hemoglobin 10.4 g/dL (12.0-15.0); Immature Platelet Fraction Pct 2.7 % (0.9-11.2); Mean Corpuscular HGB Conc 32.7 g/dl (32-36); Mean Corpuscular Hemoglobin 32.9 pg (26-34); Mean Corpuscular Volume 100.6 fl (80-100); Platelet Count Result 69 k/mm3 (150-375); Red Blood Count 3.16 M/mm3 (4.2-5.4); White Blood Count 3.9 K/mm3 (4.5-10.0)
--- OUTSIDE RECORDS SUMMARY | 2025-05-12 17:06 | XMS_ITS | Encounter Summary ---
Author Organization [facility] Address [address] [facility] [place] [address] Care Team Providers Care Dude Ranch Manager Name Role Phone Riley Isreal Primary Care Provider [phone] Unknown, Provider Primary Care Provider Unavaila ble Encounter Details Date Type Department Care Team (Late st Contact Info) Description 09/13/2024 Lab Requisition [facility] Lab [address] [place] [phone] Darcie Hernandez DO [address] [facility] 3 [place] [address] Social History Tobacco Use Types Packs/Day Years Used Date Smoking Tobacco: Never Smokeless Tobacco: Never Alcohol Use Standard Drinks/Week Comments No 0 (1 standard drink = 0.6 oz pur e alcohol) Comments Unknown Sex and Gender Information Value Date Recorded Sex Assigned at Not on file Legal Sex Female 5:32 PM CAN PATCHER Gender Identity Not on file Sexual Orientation Straight 08/11/2024 10 :05 AM CDT documented as of this encounter Plan of Treatment Upcoming Encounters Date Type Department Care Team (Late st Contact Info) Description 10/29/2025 10:00 AM CAN PATCHER Office Visit [facility] - GI [address] [place] [phone] Humphrey Esquivel, MD [address] [place] [address] documented as of this encounter Goals Goal Patient Goal Type Associated Problems Recent Progress Patient-Stated? Author Medication Management General On track( 025 10:41 AM CAN PATCHER) Emre Broussard, RN Note: Expected end date: Interventions: Take all medications as prescribed Let your doctor know right away about any changes in your medications Make sure to request a refill of your medication at least one week prior to your last dose documented as of this encounter Procedures Procedure Name Priority Date/Time Associated Diagnosis Comments DERMATOPATHOLOGY Routine 09/13/2024 9:03 AM CAN PATCHER documented in this encounter Results * DERMATOPATHOLOGY (09/13/2024 9:03 AM CAN PATCHER) Case Report Dermatopathology Report Case: [id number] Authorizing Provider: Darcie Hernandez DO Collected: 09/13/2024 09:03 AM Ordering Location: [facility] - Received: 09/13/2024 04:19 PM DermPath Lab Pathologist: Any Brown MD Specimen: Skin, right superior shoulder 4 4:05 PM [facility] DERMATOPATHOLOGY LABORATORY Final Diagnosis Specimen A. SKIN, right superior shoulder: BENIGN VERRUCOUS KERATOSIS, INFLAMED (L82.1) 4:05 PM [facility] DERMATOPATHOLOGY LABORATORY at [address] [facility] Clinical History R/O NMSC 4:05 PM [facility] DERMATOPATHOLOGY LABORATORY Gross Description Specimen A: Received is one formalin filled container labeled with the patient's name and designated right superior shoulder. The specimen consists of a shave biopsy measuring 4x4x4 mm. Jar 0. 4:05 PM [facility] DERMATOPATHOLOGY LABORATORY Microscopic Description Specimen A. SKIN, right superior shoulder: Sections show hyperkeratosis, papillomatosis, hypergranulosis, and acanthosis. Inflammatory cells are present within the dermis. These histological findings can be seen in a verruca vulgaris or a seborrheic keratosis. 4 4:05 PM [facility] DERMATOPATHOLOGY LABORATORY Disclaimer An external and internal positive and negative controls are appropriate for the histochemical, immunohistochemical and immunofluorescence stain(s) in this case (if any), except where stated explicitly. The performance characteristics of the stain(s) cited in this report were developed and its performance characteristic determined by the Dermatopathology Laboratory at [facility], directed by Dr. Javier Carias. These tests need not be, and therefore are not, approved by the [place] Food and Drug Administration. The tests are used for clinical purposes. Billing Codes Specimen Charges Stain Charges 28289 1 4 4:05 PM [facility] DERMATOPATHOLOGY LABORATORY Embedded Images 4 4:05 PM [facility] DERMATOPATHOLOGY LABORATORY Pathology/Cytolo gy TISSUE SPECIMEN FROM SKIN / Unknown 09/13/2024 9:03 AM CAN PATCHER 09/13/2024 4:19 PM CAN PATCHER Darcie Hernandez DO LAB - PATHOLOGY/CYTOLOGY ORDERABLES Final Result DERMATOPATHOLOGY LABORATORY [facility] - Department of Dermatology [facility] Medicine [address] [place] [address], [address] Floor [address] [phone] documented in this encounter Visit Diagnoses Not on filedocumented in this encounter Care Teams Dude Ranch Manager Relationship Specialty Start Date End Date Isreal Lin [address] [place] [address] PCP - General Internal Medicine 10/25/23 10/22/24 Unknown, Provider PCP - General 10/23/24 documented as of this encounter
--- OUTSIDE RECORDS SUMMARY | 2025-05-12 17:06 | XMS_ITS | Clinical Summary ---
Author Organization [facility] [address] Address [address] [place] [address] Care Team Providers Care Cad Draftsman Name Role Phone Isreal Lin MD Primary Care Provider [phone] Allergies Active Allergy Reactions Criticality Noted Date Comments Adhesive Tape-Silicones Hives Medium 03/16/2013 Codeine Other (See comments) Low 04/21/2012 Acute abd. pain Acute abd. pain, Loratadine-Pseudoephed rine Other (See comments) Low 11/17/2021 Bzzujsy-Yuo-Mdv Reductase Inhibitors Other (See comments) Low Medications [...] 1 tablet (100 mcg total) by mouth golf teacher before breakfast 07/31/20 21 Active ferrous sulfate 325 mg (65 mg of elemental iron) tabletIndicatio ns:Iron Deficiency Anemia Take 1 tablet (65 mg of elemental iron total) by mouth every other day In AM 07/26/20 23 Active losartan (COZAAR) 25 mg tabletIndicatio ns:hypertension Take 1 tablet (25 mg total) by mouth nightly Active sod kjdmo-bzfjpq-bk ueez bottle 2,300-700 mg kit Administer 2 [...] unspecified hepatic cirrhosis type Coronary arteriosclerosis in [place] artery 06/22 Overview (01/21/2017): Coronary artery disease involving [place] coronary artery of redd[place] heart without angina pectoris Mixed diabetic hyperlipidemi [...] Description 03/28/2025 2:20 PM CDT Office Visit [facility] ENT [address] [facility] Medical Office Building [address] [place] [address] Samir Khan MD Chronic pansinusitis (Primary Dx); Nasal polyps 02/16/2025 2:00 PM CDT Ancillary Procedure [facility] Cardiology at [address] [place] [address] Nonrheumatic aortic valve stenosis 02/09/2025 Results Follow-Up [facility] Cardiology at [address] [place] [phone] Sherrell Sunshine MD CTA Heart and Coronary [...] on file Legal Sex Female 3:37 AM DIGITAL ACCOUNT MANAGER Gender Identity Female 01/28/2024 11:49 PM CDT Sexual Orientation Straight 08/12/2022 12 :04 PM CDT Obstetrics History Last Filed Vital Signs Vital Sign Reading Time Taken Comments Blood Pressure 157/59 02/08/2025 1:39 PM CDT Pulse 64 02/08/2025 1:39 PM CDT Temperature 36 C (96.8 F) 12/17/2023 1:10 PM DIGITAL ACCOUNT MANAGER Respiratory Rate 16 05/31/2024 12:56 PM CDT [...] PM CDT Narrative 02/17/2025 10:41 AM CDT [facility] Cardiology [address], [address], [place] [address] P:[phone] P:[phone] Echocardiographic Report Patient Name: MAGGIE ERAZO A [...] FINDINGS: Interpretation Site: Exam was interpreted at [facility]. Left Ventricle: Normal left ventricular systolic [...] regurgitation. Electronically Signed By: Dr. Jeana Eden [facility] 02/17/2025 10:40:58 AM CDT Procedure Note Jeana Eden MD - 02/17/2025 [facility] Cardiology [address], [address], [place] [address] P:[phone] P:[phone] Echocardiographic Report Patient Name: MAGGIE ERAZO A [...] FINDINGS: Interpretation Site: Exam was interpreted at [facility]. Left Ventricle: Normal left ventricular systolic [...] regurgitation. Electronically Signed By: Dr. Jeana Eden [facility] 02/17/2025 10:40:58 AM CDT Sherrell Sunshine MD [...] Relevant to Health Maintenance Insurance MEDICARE MEDICARE [facility] MEDICARE [facility] FED[facility] Member Subscriber Plan / Payer (Ef fective 2015-Present) Name:Maggie Erazo Relation to Subscriber:Spouse Name:Ysabel Erazo Date of :1939 (Home) Address: [address] [place] [address] Payer ID:[id number] (NAIC) Group ID:[id number] Type:[facility] Address: [address] [place] [phone] Care Teams Cad Draftsman Relationship Specialty Start Date End Date Isreal Lin MD PCP - General Family Practice 08/30/23
--- OUTSIDE RECORDS SUMMARY | 2025-05-12 17:06 | XMS_ITS | Clinical Summary ---
Author Organization [facility] Address [address] [place] [address] Care Team Providers Care Welder Repair Name Role Phone Unknown, Provider Primary Care Provider Unavaila ble Source Comments [facility],non-owned Affiliates and Associated Physician Practices is amultiple site organization consisting of ambulatory clinics and hospital sitesin [place], [place], [place] and [place]. This disclosure is being madepursuant to the Care Everywhere program and may not contain all information available regarding this patient. Last updated 18.[facility] [employer] Allergies Active Allergy Reactions Criticality Noted Date [...] by mouth daily before breakfast Active Pediatric Multivit-Harrietta als-C (COMPLETE MULTI-VITAMIN PO) Take by mouth [...] came back positive for invasive ductal carcinoma ER/FL positive HER2/duncan negative and Ki-67 of 10%. Status post right-sided lumpectomy done on June 28, 2024. Pathology showed invasive ductal carcinoma 0.5 cm with negative margins. 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 No biopsy. 09/20/12 [place] ([place]): fatty liver, no focal lesions 05/08/13 EGD [...] no focal lesions, no mention of [facility] 02/03/22 [place]: nodular liver, no focal lesions, no [facility] 07/24/22 US: nodular liver, no focal lesions, patent vessels, no mention of [facility] m[facility] 08/05/23 US: nodular liver, no mention of focal lesions, patent PV, trace [facility] 10/26/23 US: echogenic liver, no focal lesions, patent vessels, trace [facility] ndwp 06/06/24 [place]: nodular liver, no focal lesions, patent PV, no mention of [facility] 08/05/24 [place] ([place]): nodular liver, patent PV but flow suggests [...] came back positive for invasive ductal carcinoma ER/FL positive HER2/duncan negative and Ki-67 of 10%. Status post right-sided lumpectomy done on June 28, 2024. Pathology showed invasive ductal carcinoma 0.5 cm with negative margins. Type 2 diabetes mellitus 04/21/2012 Resolved Problems Problem Noted Date Diagnosed Date Resolved Date H/O: CVA (cerebrovascular accident) 08/30/2023 01/24/2025 Encounters Date Type Department Care Team Description 05/04/2025 Refill [facility] - [place] [address] [facility] [place] [phone] Humphrey Esquivel MD Refill Request 03/27/2025 Refill [facility] - [address] [phone] Humphrey Esquivel MD Refill Request 02/21/2025 Refill [facility] - [address] [phone] Humphrey Esquivel MD Refill Request 02/13/2025 Refill [facility] - [address] [phone] Humphrey Esquivel MD Refill Request from Last [...] on file Legal Sex Female 5:32 PM SAFETY SPECIALIST Gender Identity Not on file Sexual Orientation Straight 08/11/2024 10 :05 AM CDT Last Filed Vital Signs Vital Sign Reading Time Taken Comments Blood Pressure 124/67 10/23/2024 10:52 AM SAFETY SPECIALIST Pulse 56 10/23/2024 10:52 AM SAFETY SPECIALIST Temperature 36.8 C (98.3 F) 10/23/2024 10:52 AM SAFETY SPECIALIST Respiratory Rate 14 10/25/2023 9:34 AM SAFETY SPECIALIST Oxygen Saturation 100% 10/23/2024 10:52 AM SAFETY SPECIALIST Inhaled Oxygen Concentration - - Weight 66.7 kg (147 lb) 10/23/2024 10:52 AM SAFETY SPECIALIST Height 160 cm (5' 3) 10/23/2024 10:52 AM SAFETY SPECIALIST Body Mass Index 26.04 10/23/2024 10:52 AM SAFETY SPECIALIST Plan of Treatment Upcoming Encounters Date Type Department Care Team (Late st Contact Info) Description 10/29/2025 10:00 AM SAFETY SPECIALIST Office Visit [facility] - [place] [address] [facility] [place] [address] Humphrey Esquivel MD [facility] [place] [address] Health Maintenance Due Date Last Done Comments [...] Management General On track( 025 10:41 AM [facility]) Emre Broussard RN Note: Expected end date: Interventions: Take all medications as prescribed Let your doctor know right away about any changes in your medications Make sure to request a refill of your medication at least one week prior to your last dose Procedures Procedure Name Priority Date/Time Associated Diagnosis Comments COMPREHENSIVE METABOLIC PANEL Routine 10/25/2023 11:42 AM SAFETY SPECIALIST Liver cirrhosis secondary to MASH MICROALB/CREAT RATIO URINE (EXTERNAL RESULT ENTRY) Routine 08/27/2020 HEMOGLOBIN A1C (EXTERNAL RESULT ENTRY) Routine 08/27/2020 from Last 3 Months or Most Recently Relevant to Health Maintenance Results * (ABNORMAL) COMPREHENSIVE METABOLIC PANEL (10/25/2023 11:42 AM [facility]) BUN 12 7 - 26 mg/dL [...] Lab Venipuncture / Unknown 10/25/2023 11:42 AM SAFETY SPECIALIST 10/25/2023 12:01 PM [facility] Humphrey Esquivel MD LAB - CHEMISTRY OR DERABLES Final Result [facility] [address] [place] [address], [facility] [phone] * MICROALB/CREAT RATIO URINE (EXTERNAL RESULT ENTRY) [...] Recently Relevant to Health Maintenance Insurance MEDICARE [facility] MEDICARE Care Teams Welder Repair Relationship Specialty Start Date End Date Unknown, Provider PCP - General 10/23/24
--- OUTSIDE RECORDS SUMMARY | 2025-05-12 17:06 | XMS_ITS | Referral Summary ---
Author Organization [facility] [address] Address [address] [place] [address] Care Team Providers Care Shake Cutter Name Role Phone Isreal Lin MD Primary Care Provider [phone] Encounters Date Type Department Care Team Description 03/28/2025 2:20 PM CDT Office Visit [facility] ENT [address] [facility] Medical Office Building [address] [place] [phone] Samir Khan MD Chronic pansinusitis (Primary Dx); Nasal polyps 02/16/2025 2:00 PM CDT Ancillary Procedure [facility] Cardiology at [address] [place] [address] Nonrheumatic aortic valve stenosis 02/09/2025 Results Follow-Up [facility] Cardiology at [address] [place] [address] Sherrell Sunshine MD [facility] Heart and Coronary Arteries W Morphology when Performed from Last 3 Months Allergies Active Allergy Reactions Criticality Noted Date Comments Adhesive Tape-Silicones Hives Medium 03/16/2013 Codeine Other (See comments) Low 04/21/2012 Acute abd. pain Acute abd. pain, Loratadine-Pseudoephed rine Other (See comments) Low 11/17/2021 Pdpizpn-Hwu-Yot Reductase Inhibitors Other (See comments) Low Medications [...] 1 tablet (100 mcg total) by mouth net repairer before breakfast 07/31/20 21 Active ferrous sulfate 325 mg (65 mg of elemental iron) tabletIndicatio ns:Iron Deficiency Anemia Take 1 tablet (65 mg of elemental iron total) by mouth every other day In AM 07/26/20 23 Active losartan (COZAAR) 25 mg tabletIndicatio ns:hypertension Take 1 tablet (25 mg total) by mouth nightly Active sod exbws-fgbqkr-cw ueez bottle 2,300-700 mg kit Administer 2 [...] unspecified hepatic cirrhosis type Coronary arteriosclerosis in [place] artery 06/22 Overview (01/21/2017): Coronary artery disease involving [facility] coronary artery of 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 Gender Identity Female 01/28/2024 11:49 PM CDT Sexual Orientation Straight 08/12/2022 12 :04 PM CDT Last Filed Vital Signs Vital Sign Reading Time Taken Comments Blood Pressure 157/59 02/08/2025 1:39 PM CDT Pulse 64 02/08/2025 1:39 PM CDT Temperature 36 C (96.8 F) 12/17/2023 1:10 PM COVER STITCH MACHINE OPERATOR Respiratory Rate 16 05/31/2024 12:56 PM CDT [...] PM CDT Narrative 02/17/2025 10:41 AM CDT [facility] Cardiology [address] [facility], [address], [place] [address] P:[phone] P:[phone] Echocardiographic Report Patient Name: MAGGIE ERAZO A [...] FINDINGS: Interpretation Site: Exam was interpreted at [facility]. Left Ventricle: Normal left ventricular systolic function. [...] regurgitation. Electronically Signed By: Dr. Jeana Eden [facility] 02/17/2025 10:40:58 AM CDT Procedure Note Jeana Eden MD - 02/17/2025 [facility] Cardiology [address], [address], [place] [address] P:[phone] P:[phone] Echocardiographic Report Patient Name: MAGGIE ERAZO A [...] FINDINGS: Interpretation Site: Exam was interpreted at [facility]. Left Ventricle: Normal left ventricular systolic function. [...] regurgitation. Electronically Signed By: Dr. Jeana Eden [facility] 02/17/2025 10:40:58 AM CDT Sherrell Sunshine [...] Relevant to Health Maintenance Insurance MEDICARE MEDICARE [facility] FED[employer]AL MEDICARE [facility] Care Teams Shake Cutter Relationship Specialty Start Date End Date Isreal Lin MD PCP - General Family Practice 08/30/23
--- OUTSIDE RECORDS SUMMARY | 2025-05-12 17:06 | XMS_ITS | Clinical Summary ---
Author Organization [facility] Melia Keenan Address [address] [place] [address] Care Team Providers Care Forming Machine Operator Name Role Phone Unavailable Primary Care Provider Unavailabl e Allergies Active Allergy Reactions Criticality Noted Date Comments Adhesive Tape-Silicones Other (See Comments) 11/17/2021 Codeine Nausea and Vomiting,Shortness of Breath/Wheezing High 04/21/2012 Acute abd. pain Acute abd. pain, Acute abd. pain, Acute abd. pain, Acute abd. pain Diphenhydramine Hcl Hives High 03/16/2013 Vpvxbsm-Ofz-Mzz Reductase Inhibitors Muscle Pain,Rash Medium 09/11/2019 Medications [...] Abstract 02/15/2025 11:00 AM CDT Office Visit [facility] Oncology and Hematology - [place] [address] [facility] [address] [address] Devin Mcintyre MD Malignant neoplasm [...] Description 05/21/2025 2:45 PM CDT Office Visit [facility] Oncology and Hematology - [place] [address] [facility] [address] [place] [address] Devin Mcintyre MD [address] [facility] [address] [place] [address] Health Maintenance Due Date Last [...] 09/19/2020 Insurance MEDICARE PART A AND B [facility]
--- OUTSIDE RECORDS SUMMARY | 2025-05-12 17:06 | XMS_ITS | Continuity of Care Document ---
Author Organization [facility] Address [address] [place] [address] Phone Care Team Providers Care Tape Recorder Repairer Name Role Phone Nicola Mcwilliams Unavailable Unavailable [...] Diagnoses Date Provider Providers Copied on Encounter [facility], [address] [place] [address] [address], [place], [place], [id number], [place] tel:[phone] [facility] No Information 0-201 0 Poppy Petersen. Francisco [facility] [address], [place], [address], [place]. tel:[phone] Referring Provider: Francisco Javier Leblanc [facility] [address], [place], [address]. tel:[phone] [facility], [address] [place] [address] [address], [place], [place], [id number], [place] tel:[phone] SEC [place] [facility] No Information Jul-0 5-200 9 Poppy Edestuardo. [address] [facility] , [address], [place], [address], [place]. tel:[phone] [facility], [address], [place], [place], [id number], tel:[phone] SEC [facility] No Information Sep-1 2-200 8 Doiterence Petersen. [address] [facility] [address] , [address], [place], [address], [place]. tel:[phone] Office/outpat ient Visit, [place], [address], [place], [place], [id number], [place] tel:[phone] [facility] No Information Darell-2 5-200 7 Poppy Petersen. [address] [facility] , [address], [place], [address], [place]. tel:[phone] Family History Family Member Type Diagnosis Age At Onset No Information Payers Payer name Insurance type Covered libertarian ID Authoriza tion(s) Medicare [id number] Social History Type Description Quantity Date Captured [...]
[2025-05-12 17:27] LABS: Band Neutrophils Percent 2 % (0-6); Basophils Absolute Manual 0.03 K/mm3 (0.0-0.1); Basophils Percent Manual 1 % (0-1); Eosinophils Absolute Manual 0.03 K/mm3 (0.02-0.50); Eosinophils Percent Manual 1 % (0-4); Lymphocytes Absolute Manual 0.89 K/mm3 (1.1-4.5); Lymphocytes Percent Manual 23.0 % (18-44); Monocytes Absolute Manual 0.15 K/mm3 (0.1-0.90); Monocytes Percent Manual 4 % (3-9); Neutrophils Absolute Manual 2.76 K/mm3 (1.3-6.7); Neutrophils Percent Manual 69 % (46-73); Schistocytes None Seen; Total Cells Counted 100
[2025-05-12 17:28] LABS: Anisocytosis 1+
[2025-05-12 17:29] LABS: Add Urine Microscopic? YES; Appearance Urine Clear (Clear); Glucose Urine UA Negative (Negative); Leukocyte Esterase Ur Trace LEU/UL (Negative); Nitrate Urine Negative (Negative); Specific Grav Ur 1.006 (1.001-1.035)
--- NOTE | 2025-05-12 17:42 | ED_ITS ---
HPI - General Adult General Chief complaint: Abdominal Pain Stated complaint: Diarrhea, protruding stomach Time Seen by Provider: 05/12/25 16:02 History of Present Illness HPI narrative: 84-year-old female present to the emergency department for evaluation for diarrhea that is been ongoing for the last 30 days. Patient reports that she was started on doxycycline approximately 30 days ago and had worsening diarrhea. Patient does report diffuse abdominal cramping. Related Data Home Medications ?Medication ?Instructions ?Recorded ?Confirmed ?Last Taken ?Type cyclosporine 0.05 % eye drops in a 0.05 % ophthalmic (eye) BID 09/04/19 05/11/25 1 Day Ago History dropperette (Restasis) ~07/19/23 nadolol 40 mg tablet (Corgard) 40 mg PO DAILY 10/21/21 05/11/25 1 Day Ago History ~07/19/23 ascorbic acid (vitamin C) 500 mg 500 mg PO DAILY 10/15/22 05/11/25 1 Day Ago History capsule ~07/19/23 mupirocin 2 % topical ointment 2 applic topical DAILY 03/20/24 05/11/25 Unknown History calcium 250 mg tablet 600 mg PO DAILY 06/16/24 05/11/25 12/19/24 History furosemide 20 mg tablet 20 mg PO QAM 08/28/24 05/11/25 12/19/24 History spironolactone 50 mg tablet 50 mg PO DAILY 08/28/24 05/11/25 12/19/24 History tamoxifen 20 mg tablet 20 mg PO DAILY 12/25/24 05/11/25 Unknown History Allergies Allergy/AdvReac Type Severity Reaction Status Date / Time codeine Allergy Intermediate ABDOMINAL Verified 05/11/25 12:45 CRAMPING/DISTRESS acetaminophen (From [place]) AdvReac Severe Vomiting Verified 05/11/25 12:45 hydrocodone (From [place]) AdvReac Severe Vomiting Verified 05/11/25 12:45 adhesive tape AdvReac Unknown RASH, Verified 05/11/25 12:45 REDNESS Review of Systems 2 Review of Systems: All systems reviewed & are unremarkable except as noted in HPI and below PMFSH Past Medical History Medical History Cirrhosis Thrombocytopenia Varicose vein of leg Colon polyp Skin cancer of face Dyslipidemia Dry eyes, bilateral GERD (gastroesophageal reflux disease) Lumbar degenerative disc disease Urinary incontinence Osteoarthritis Hypothyroidism Chronic sinusitis Hypertension DM type 2 (diabetes mellitus, type 2) Esophageal varices Cirrhosis Surgical History Surgical History H/O arthroscopic knee surgery History of cataract surgery S/P cholecystectomy Hx of appendectomy H/O sinus surgery Family History Family History Father Hypertension Mother Cerebrovascular accident Valvular heart disease Diabetes mellitus Hypertension Heart disease Daughter Breast cancer Diabetes mellitus Son Hypertension Sibling Diabetes mellitus Alcoholism Daughter Breast cancer Diabetes mellitus Hypertension Grandparent Alcoholism Diabetes mellitus Social History Social History Smoking status: Never smoker Alcohol intake: never Substance use: never Substance use type: does not use Do You Feel Safe in your Home?: Yes Lack of Transportation: No Lack of Food: Never True Current Housing: I Have Housing Concerned About Future Housing: No Difficulty Paying Gas/Electric Bills: No Difficulty Paying for Meds: No Currently Unemployed: No Education: Trade/Vocational Certificate Difficulty w/ Childcare or Family Care: No Living arrangements: with family Spiritual care concerns: No Exam 2 Narrative: APPEARANCE: Well appearing, no pain, no distress, well-nourished. HEAD: normocephalic, atraumatic. EYES: PERRLA/EOMI, conjunctivae clear. NOSE: Normal no drainage EARS:TMS clear with good light reflex. THROAT: Pharynx clear, no exudate. NECK: Supple. No adenopathy, no masses. RESPIRATORY: Airway patent, respirations nonlabored. Clear to auscultation bilaterally, no rales, rhonchi, wheezing. CARDIOVASCULAR: Regular rate and rhythm without murmurs rubs or gallops. ABDOMINAL: Soft, nontender, nondistended, normal bowel sounds MUSCULOSKELETAL: Moves all extremities. Strength/ROM intact, No edema, No calf tenderness. NEURO: Alert. Cranial nerves II through XII intact. Grossly intact SKIN: Warm, dry. Normal Color Course Vital Signs Vital signs: Vital Signs Temperature 97.3 F L 05/12/25 15:55 Pulse Rate 66 05/12/25 15:55 Respiratory Rate 16 05/12/25 15:55 Blood Pressure 160/85 H 05/12/25 15:55 Pulse Oximetry 99 05/12/25 15:55 Temperature 97.3 F L 05/12/25 15:55 Pulse Rate 69 05/12/25 18:02 Respiratory Rate 13 05/12/25 18:02 Blood Pressure 131/59 L 05/12/25 18:02 Pulse Oximetry 100 05/12/25 18:02 Medical Decision Making MDM Narrative Medical decision making narrative: 84-year-old female presents emergency department for evaluation for persistent diarrhea. Patient has been on antibiotics by her primary care physician. Patient has no prior history of C diff. Patient is currently afebrile with no leukocytosis hemoglobin of 10.4. Patient has no acute abnormalities on her CMP patient does have an elevated creatinine but this is elevated at her baseline. Patient's lipase is within normal limits. No evidence of urinary tract infection. Patient's C diff was negative, stool cultures are pending. CT and pelvis showed no acute findings. Patient was encouraged close follow-up with GI. All questions concerns were addressed patient was well-appearing at time of discharge. Differential Diagnosis Differential Diagnosis: Colitis, diverticulitis, appendicitis, C diff Vital Signs Vital Signs: Vital Signs Temperature 97.3 F L 05/12/25 15:55 Pulse Rate 66 05/12/25 15:55 Respiratory Rate 16 05/12/25 15:55 Blood Pressure 160/85 H 05/12/25 15:55 Pulse Oximetry 99 05/12/25 15:55 Temperature 97.3 F L 05/12/25 15:55 Pulse Rate 69 05/12/25 18:02 Respiratory Rate 13 05/12/25 18:02 Blood Pressure 131/59 L 05/12/25 18:02 Pulse Oximetry 100 05/12/25 18:02 Lab Data Lab results reviewed: Yes I reviewed the patient's lab results. 05/12/25 16:28 05/12/25 17:57 Labs: Lab Results 05/12/25 05/12/25 05/12/25 Range/Units 16:28 16:29 16:43 WBC 3.9 L (4.5-10.0) K/mm3 RBC 3.16 L (4.2-5.4) M/mm3 Hgb 10.4 L (12.0-15.0) g/dL Hct 31.8 L (37.0-47.0) % MCV 100.6 H (80-100) fl MCH 32.9 (26-34) pg MCHC 32.7 (32-36) g/dl RDW 13.5 (11.5-14.5) % Plt Count 69 L (150-375) k/mm3 MPV 11.1 H (7.4-10.4) fl Immature Gran % (Auto) Not Reportable Neut % (Auto) Not Reportable Lymph % (Auto) Not Reportable Tucker % (Auto) Not Reportable Eos % (Auto) Not Reportable Baso % (Auto) Not Reportable Lymph # (Auto) Not Reportable Tucker # (Auto) Not Reportable Eos # (Auto) Not Reportable Baso # (Auto) Not Reportable Abs Immat Gran (auto) Not Reportable Absolute Neuts (auto) Not Reportable Absolute Nucleated RBC Not Reportable Total Counted 100 Neutrophils % (Manual) 69 (46-73) % Band Neutrophils % 2 (0-6) % Lymphocytes % (Manual) 23.0 (18-44) % Monocytes % (Manual) 4 (3-9) % Eosinophils % (Manual) 1 (0-4) % Basophils % (Manual) 1 (0-1) % Nucleated RBC % Not Reportable Abs Neuts (Manual) 2.76 (1.3-6.7) K/mm3 Abs Lymphs (Manual) 0.89 L (1.1-4.5) K/mm3 Abs Monocytes (Manual) 0.15 (0.1-0.90) K/mm3 Absolute Eos (Manual) 0.03 (0.02-0.50) K/mm3 Abs Basophils (Manual) 0.03 (0.0-0.1) K/mm3 Platelet Estimate Decreased (Adequate) % Immature Plt Fraction 2.7 (0.9-11.2) % Anisocytosis 1+ Schistocytes None seen PT (11.1-14.7) Seconds INR APTT (22.3-36.8) Seconds Sodium (137-145) mmol/L Potassium (3.4-5.0) mmol/L Chloride (98-107) mmol/L Carbon Dioxide (22-30) mmol/L Anion Gap (4-12) mmol/L BUN (7-17) mg/dL Creatinine 1.20 (0.7-1.2) mg/dL Estim Creat Clear Calc 30 ml/min Estimated GFR 43 L (59 - ) Glucose (65-110) mg/dL Lactic Acid 1.5 (0.7-2.0) mmol/L Calcium (8.4-10.2) mg/dL Total Bilirubin (0.2-1.3) mg/dL AST (14-36) U/L ALT (6-35) U/L Alkaline Phosphatase (38-126) U/L Total Protein (6.3-8.2) g/dL Albumin (3.5-5.1) g/dL Lipase (23-300) U/L Urine Color Yellow (Yellow) Urine Appearance Clear (Clear) Urine pH 5.5 (5.0-9.0) Ur Specific [place] 1.006 (1.001-1.035) Urine Protein Negative (Negative) mg/dL Urine Glucose (UA) Negative (Negative) mg/dL Urine Ketones Negative (Negative) mg/dL Ur Blood (Man) Negative (Negative) Urine Nitrate Negative (Negative) Urine Bilirubin Negative (Negative) Urine Urobilinogen 0.2 (<2.0) mg/dL Leukocyte Esterase Rfl Trace H (Negative) NOEL/UL Urine RBC None seen (0-2) /hpf Urine WBC 0-3 (0-3) /hpf Ur Squamous Epith Cells Rare (Few) /hpf Urine Bacteria Trace (None) /hpf Hyaline Casts 0-2 (None) /lpf C. difficile (PCR) Negative (NEGATIVE) 05/12/25 Range/Units 17:57 WBC (4.5-10.0) K/mm3 RBC (4.2-5.4) M/mm3 Hgb (12.0-15.0) g/dL Hct (37.0-47.0) % MCV (80-100) fl MCH (26-34) pg MCHC (32-36) g/dl RDW (11.5-14.5) % Plt Count (150-375) k/mm3 MPV (7.4-10.4) fl Immature Gran % (Auto) Neut % (Auto) Lymph % (Auto) Tucker % (Auto) Eos % (Auto) Baso % (Auto) Lymph # (Auto) Tucker # (Auto) Eos # (Auto) Baso # (Auto) Abs Immat Gran (auto) Absolute Neuts (auto) Absolute Nucleated RBC Total Counted Neutrophils % (Manual) (46-73) % Band Neutrophils % (0-6) % Lymphocytes % (Manual) (18-44) % Monocytes % (Manual) (3-9) % Eosinophils % (Manual) (0-4) % Basophils % (Manual) (0-1) % Nucleated RBC % Abs Neuts (Manual) (1.3-6.7) K/mm3 Abs Lymphs (Manual) (1.1-4.5) K/mm3 Abs Monocytes (Manual) (0.1-0.90) K/mm3 Absolute Eos (Manual) (0.02-0.50) K/mm3 Abs Basophils (Manual) (0.0-0.1) K/mm3 Platelet Estimate (Adequate) % Immature Plt Fraction (0.9-11.2) % Anisocytosis Schistocytes PT 15.8 H (11.1-14.7) Seconds INR 1.2 APTT 32.7 (22.3-36.8) Seconds Sodium 136 L (137-145) mmol/L Potassium 4.4 (3.4-5.0) mmol/L Chloride 107 (98-107) mmol/L Carbon Dioxide 21 L (22-30) mmol/L Anion Gap 8 (4-12) mmol/L BUN 24 H (7-17) mg/dL Creatinine 1.12 H (0.7-1.2) mg/dL Estim Creat Clear Calc 32 ml/min Estimated GFR 46 L (59 - ) Glucose 136 H (65-110) mg/dL Lactic Acid (0.7-2.0) mmol/L Calcium 8.9 (8.4-10.2) mg/dL Total Bilirubin 1.5 H (0.2-1.3) mg/dL AST 47 H (14-36) U/L ALT 33 (6-35) U/L Alkaline Phosphatase 108 (38-126) U/L Total Protein 6.5 (6.3-8.2) g/dL Albumin 3.3 L (3.5-5.1) g/dL Lipase 113 (23-300) U/L Urine Color (Yellow) Urine Appearance (Clear) Urine pH (5.0-9.0) Ur Specific [place] (1.001-1.035) Urine Protein (Negative) mg/dL Urine Glucose (UA) (Negative) mg/dL Urine Ketones (Negative) mg/dL Ur Blood (Man) (Negative) Urine Nitrate (Negative) Urine Bilirubin (Negative) Urine Urobilinogen (<2.0) mg/dL Leukocyte Esterase Rfl (Negative) NOEL/UL Urine RBC (0-2) /hpf Urine WBC (0-3) /hpf Ur Squamous Epith Cells (Few) /hpf Urine Bacteria (None) /hpf Hyaline Casts (None) /lpf C. difficile (PCR) (NEGATIVE) Imaging Data Radiologist's impression: Impressions Abdomen/Pelvis CT 05/12/25 17:05 IMPRESSION: Mild interstitial edema and possible chronic interstitial change in the lungs. Cirrhosis with portal hypertension. Marked splenomegaly. Severe distal esophageal and gastric wall edema, may represent esophagitis/gastritis and/or ascitic fluid. Prominent left pelvic veins may represent varices from portal hypertension or pelvic congestion. Small fat and fluid containing umbilical hernia, correlate for signs of inflammation and pain/tenderness. Discharge Plan Discharge Clinical Impression: Diarrhea Patient Disposition: Home Condition: Stable Instructions: Antibiotic Form, Clear Liquid Diet (ED), Chronic Diarrhea (DC), Abdominal Pain (ED) Additional Instructions: Clear liquid diet for the next few days. Have close follow-up with GI. If you have any worsening symptoms and please call or return to the emergency department. Patient Language: Nauruan Prescriptions: No Action furosemide 20 mg tablet 20 mg PO QAM spironolactone 50 mg tablet 50 mg PO DAILY nadolol [Corgard] 40 mg tablet 40 mg PO DAILY mupirocin 2 % ointment 2 applic topical DAILY tamoxifen 20 mg tablet 20 mg PO DAILY cyclosporine [Restasis] 0.05 % dropperette 0.05 % ophthalmic (eye) BID ascorbic acid (vitamin C) 500 mg capsule 500 mg PO DAILY calcium 250 mg Tablet 600 mg PO DAILY caipgvytjwym-Ia-msfp-minerals Tablet 1 tablet PO DAILY Qty: 30 1RF metformin 500 mg tablet extended release 24 hr 500 mg PO DAILY Qty: 360 1RF losartan 50 mg tablet See Rx Instructions .ROUTE .COMPLEX Qty: 90 1RF Dose Instruction: Take 1 tablet by mouth once daily Rx Instructions: Take 1 tablet by mouth once daily losartan 25 mg tablet See Rx Instructions .ROUTE .COMPLEX Qty: 90 1RF Dose Instruction: Take 1 tablet by mouth nightly Rx Instructions: Take 1 tablet by mouth nightly levothyroxine 100 mcg tablet 100 mcg PO DAILY Qty: 90 1RF ferrous sulfate 325 mg (65 mg iron) tablet See Rx Instructions .ROUTE .COMPLEX Qty: 90 0RF Dose Instruction: TAKE 1 TABLET BY MOUTH EVERY OTHER DAY Rx Instructions: TAKE 1 TABLET BY MOUTH EVERY OTHER DAY omeprazole 20 mg capsule,delayed release(DR/EC) See Rx Instructions .ROUTE .COMPLEX Qty: 30 5RF Dose Instruction: Take 1 capsule by mouth once daily Rx Instructions: Take 1 capsule by mouth once daily Follow-up/Referrals: Isreal Lin MD [Primary Care Provider] - Shay Johns MD [Physician] -
[2025-05-12 18:00] LABS: Toxigenic C. Diff NEGATIVE (NEGATIVE)
[2025-05-12 18:14] LABS: Alanine Aminotransferase 33 U/L (6-35); Albumin Level 3.3 g/dL (3.5-5.1); Alkaline Phosphatase 108 U/L (38-126); Anion Gap 8 mmol/L (4-12); Aspartate Amino Transferase 47 U/L (14-36); Bilirubin,Total 1.5 mg/dL (0.2-1.3); Blood Urea Nitrogen 24 mg/dL (7-17); Calcium 8.9 mg/dL (8.4-10.2); Carbon Dioxide 21 mmol/L (22-30); Chloride 107 mmol/L (98-107); Estimated CRCL calculation 32 ml/min; Estimated Glomerular Filt Rate 46; Glucose 136 mg/dL (65-110); Lipase 113 U/L (23-300); Potassium 4.4 mmol/L (3.4-5.0); Sodium 136 mmol/L (137-145); Total Protein 6.5 g/dL (6.3-8.2)
[2025-05-12 18:15] LABS: INR 1.2; Prothrombin Time 15.8 Seconds (11.1-14.7)
[2025-05-12 18:17] LABS: Partial Thromboplastin Time 32.7 Seconds (22.3-36.8)
== END 2025-05-12 18:58 | disposition home or self-care (01) ==
PROVIDERS: Emergency Provider Emergency Medicine; PCP Family Medicine
DX: R19.7 Diarrhea, unspecified (principal); I10 Essential (primary) hypertension; E03.9 Hypothyroidism, unspecified; E78.5 Hyperlipidemia, unspecified; E11.9 Type 2 diabetes mellitus without complications; K74.60 Unspecified cirrhosis of liver; K21.9 Gastro-esophageal reflux disease without esophagitis; J32.9 Chronic sinusitis, unspecified; H04.123 Dry eye syndrome of bilateral lacrimal glands; M19.90 Unspecified osteoarthritis, unspecified site; Z86.0100 Personal history of colon polyps, unspecified; Z85.828 Personal history of other malignant neoplasm of skin; Z98.49 Cataract extraction status, unspecified eye; Z90.49 Acquired absence of other specified parts of digestive tract; Z79.899 Other long term (current) drug therapy; Z79.84 Long term (current) use of oral hypoglycemic drugs
CPT/HCPCS: 36415; 74177; 80053; 81001; 83605; 83690; 85025; 85055; 85610; 85730; 87493; 99284; Q9967

== ENCOUNTER 2025-06-13 14:05 | Outpatient (CLI) | payer MEDICARE, BC, SELFPAY ==
--- OUTSIDE RECORDS SUMMARY | 2010-02-17 07:45 | XMS_ITS | Continuity of Care Document ---
Author Organization [facility] Address [address] [place] [address] Phone Care Team Providers Care Supervising Librarian Name Role Phone Nicola Mcwilliams Unavailable Unavailable Procedures Procedure Date Eye Exam & Treatment Dilated Retinal Exam W Interpretation Ma Fundus Photography W/ Report Refraction Eye Exam & Treatment Dilated Retinal Exam W Interpretation Oc No Script Eye Exam & Treatment Refraction Dilated Retinal Exam W Interpretation Se p Office/outpatient Visit, Est Advance Directives Directive Yes / No Effective Date File Name No Information Encounters Encounter Description Practice Location Reason(s) For Visit Diagnoses Date Provider Providers Copied on Encounter [facility], [address] [place] [address] [address], [place], [place], [id number], [place] tel:[phone] [facility] No Information 0-201 0 Poppy Petersen. Francisco [facility]avier [facility] [place] [address], [place], [address], [place]. tel:[phone] Referring Provider: Francisco Javier [facility]anc [facility] [address], [place], [address]. tel:[phone] [facility], [address] [place] [address] [address], [place], [place], [address], [place] tel:[phone] SEC [place] [facility] No Information Jul-0 5-200 9 Poppy Edestuardo. [address] [facility] , [address], [place], [address], [place]. tel:[phone] [facility], [address], [place], [place], [address], tel:[phone] [facility] [place] [facility] No Information Sep-1 2-200 8 Doiterence Petersen. [address] [facility] [place] , [address], [place], [address], [place]. tel:[phone] Office/outpat ient Visit, [facility], [address], [place], [place], [address], [place] tel:[phone] [facility] [place] [facility] No Information Darell-2 5-200 7 Poppy Petersen. [address] [facility] , [address], [place], [address], [place]. tel:[phone] Family History Family Member Type Diagnosis Age At Onset No Information Payers Payer name Insurance type Covered constitution party ID Authoriza tion(s) Medicare [facility] [id number] [facility] [id number] Social History Type Description Quantity Date Captured Comments Sex Female Smoking Status No Information Chief Complaint And Reason For Visit No Information Reason For Referral Reason For Referral No Information History Of Present Illness Encounter Date Complaint History Of Prese nt Illness No Information Functional Status Date Functional Assessmen t No Information Instructions Date Instruction Additional Infor mation No Information Assessments Type Assessment Date No Information Patient Care Teams Name Effective Dates (start - stop) Status Members No Information
[2025-06-13 14:47] LABS: Add Urine Microscopic? YES; Appearance Urine Clear (Clear); Glucose Urine UA Negative (Negative); Leukocyte Esterase Ur 3+ LEU/UL (Negative); Nitrate Urine Negative (Negative); Non Pathogenic Casts 0-2; Specific Grav Ur 1.005 (1.001-1.035)
--- OUTSIDE RECORDS SUMMARY | 2025-06-13 15:27 | XMS_ITS | Clinical Summary ---
Author Organization [facility] [place] [address] Address [address] [place] [address] Care Team Providers Care Centrifugal Station Operator Name Role Phone Isreal Lin MD Primary Care Provider [phone] Allergies Active Allergy Reactions Criticality Noted Date Comments Adhesive Tape-Silicones Hives Medium 03/16/2013 Codeine Other (See comments) Low 04/21/2012 Acute abd. pain Acute abd. 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 07/31/20 21 Active ferrous sulfate 325 mg (65 mg of elemental iron) tabletIndicatio ns:Iron Deficiency Anemia Take 1 tablet (65 mg of elemental iron total) by mouth every other day In AM 07/26/20 23 Active losartan (COZAAR) 25 mg tabletIndicatio ns:hypertension Take 1 tablet (25 mg total) by mouth nightly Active sod hvzir-nlxnfu-ow ueez bottle 2,300-700 mg kit Administer 2 [...] 2 % ointment DISSOLVE 1 INCH IN EACH NASAL IRRIGATION BOTTLE AND RINSE TWICE DAILY 22 g 06/08/20 25 Active mupirocin (BACTROBAN) 2 % ointment DISSOLVE 1 INCH IN NASAL IRRIGATION BOTTLE AND RINSE TWICE DAILY 22 g 05/08/20 25 025 Discontinued Active Problems Problem Noted [...] unspecified hepatic cirrhosis type Coronary arteriosclerosis in [place] artery 06/22 Overview (01/21/2017): Coronary artery disease involving [place] coronary artery of [place] heart without angina pectoris Mixed diabetic hyperlipidemi [...] Encounters Date Type Department Care Team Description 05/30/2025 2:20 PM CDT Office Visit [facility] Medicine ENT [address] [facility] Medical Office Building [address] [place] [phone] Samir Khan MD Chronic pansinusitis (Primary Dx); Nasal polyps 03/28/2025 2:20 PM CDT Office Visit [facility] ENT [address] [facility] Office Building [address] [place] [phone] Samir Khan MD Chronic pansinusitis (Primary Dx); Nasal polyps from Last 3 Months Surgical History Surgery [...] on file 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 Gender Identity Female 01/28/2024 11:49 PM CDT Sexual Orientation Straight 08/12/2022 12 :04 PM CDT Obstetrics History Last Filed Vital Signs Vital Sign Reading Time Taken Comments Blood Pressure 157/59 02/08/2025 1:39 PM CDT Pulse 64 02/08/2025 1:39 PM CDT Temperature 36 C (96.8 F) 12/17/2023 1:10 PM 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 Respiratory Rate 16 05/31/2024 12:56 PM CDT [...] Additional history exists Influenza Vaccine (#1) 2025 4, 08/19/2023, 07/22/2020, Additional history exists Pneumococcal vaccine 65+ Completed [...] ed Result - Final Performing Organization Address City/State/[facility] Co de Phone Number EXTERNAL LAB from Last 3 Months or Most Recently Relevant to Health Maintenance Insurance MEDICARE MEDICARE [facility] FEDERAL MEDICARE [facility] [employer] Care Teams Centrifugal Station Operator Relationship Specialty Start Date End Date Isreal Lin MD PCP - General Family Practice 08/30/23
--- OUTSIDE RECORDS SUMMARY | 2025-06-13 15:27 | XMS_ITS | Clinical Summary ---
Author Organization [facility] Melia Keenan Address [address] [place] [address] Care Team Providers Care Wax Pumper Name Role Phone Unavailable Primary Care Provider Unavailabl e Allergies Active Allergy Reactions Criticality Noted Date Comments Adhesive Tape-Silicones Other (See Comments) 11/17/2021 Codeine Nausea and Vomiting,Shortness of Breath/Wheezing High 04/21/2012 Acute abd. pain Acute abd. pain, Acute abd. pain, Acute abd. pain, Acute abd. pain Diphenhydramine Hcl Hives High 03/16/2013 Mheftta-Xvd-Lsd Reductase Inhibitors Muscle Pain,Rash Medium 09/11/2019 Medications [...] Encounters Date Type Department Care Team Description 06/12/2025 External Device Data ST[facility] ABSTRACTION Provider, Abstract 05/29/2025 External Device Data [facility] ABSTRACTION Provider, Abstract [...] Care Team (Late st Contact Info) Description 07/24/2025 2:00 PM CDT Office Visit [facility] Oncology and Hematology - [place] [address] [place] [phone] Devin Mcintyre MD [address] [facility] [address] [place] [address] Health Maintenance Due Date Last [...] 01/03/2024, Additional history exists OSTEOPOROSIS SCREENING 08/02/2029 , 03/27/2022, 09/19/2020 Insurance MEDICARE PART A AND B [facility]
--- OUTSIDE RECORDS SUMMARY | 2025-06-13 15:27 | XMS_ITS | Clinical Summary ---
Author Organization [facility] Address [address] [place] [place] [address] Care Team Providers Care Pipe Organ Technician Name Role Phone Unknown, Provider Primary Care Provider Unavaila ble Source Comments [facility],non-owned Affiliates and Associated Physician Practices is amultiple site organization consisting of ambulatory clinics and hospital sitesin [place], [place] and [place]. This disclosure is being madepursuant to the Care Everywhere program and may not contain all information available regarding this patient. Last updated 18.[facility] ascentify Allergies Active Allergy Reactions Criticality Noted Date [...] times daily with morning and evening meal 02/20/20 15 Active Calcium Carbonate-Leena min D (CALCIUM-CARB [...] by mouth daily before breakfast Active Pediatric Multivit-Bland als-C (COMPLETE MULTI-VITAMIN PO) Take by mouth once daily Active ferrous sulfate 325 (65 FE) MG tablet Take 1 (one) tablet by mouth every 2 days Active nadolol (Corgard) 40 MG tablet Take 1 tablet by mouth once daily 90 tablet 05/15/20 25 Active furosemide (Lasix) 20 MG tablet Take 1 tablet by mouth once daily 90 tablet 1 06/04/20 25 Active spironolactone (Aldactone) 50 MG tablet Take 1 tablet by mouth once daily 90 tablet 1 06/04/20 25 Active nadolol (Corgard) 40 MG tablet Take 1 tablet by mouth once daily 90 tablet 02/14/20 25 025 Discontinued furosemide (Lasix) 20 MG tablet Take 1 tablet by mouth once daily 30 tablet 05/07/20 25 025 Discontinued spironolactone (Aldactone) 50 MG tablet Take 1 tablet by mouth once daily 30 tablet 05/07/20 25 025 Discontinued Active Problems Problem Noted [...] came back positive for invasive ductal carcinoma ER/LA positive HER2/duncan negative and Ki-67 of 10%. Status post right-sided lumpectomy done on June 28, 2024. Pathology showed invasive ductal carcinoma 0.5 cm with negative margins. 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 No biopsy. 09/20/12 US ([place]): fatty liver, no focal lesions 05/08/13 EGD [...] no focal lesions, no mention of ascites [facility] 02/03/22 US: nodular liver, no [...] PV, no mention of ascites 08/05/24 US ([place]): nodular liver, patent PV but flow suggests [...] came back positive for invasive ductal carcinoma ER/LA positive HER2/duncan negative and Ki-67 of 10%. Status post right-sided lumpectomy done on June 28, 2024. Pathology showed invasive ductal carcinoma 0.5 cm with negative margins. Type 2 diabetes mellitus 04/21/2012 Resolved Problems Problem Noted Date Diagnosed Date Resolved Date H/O: CVA (cerebrovascular accident) 08/30/2023 01/24/2025 Encounters Date Type Department Care Team Description 06/04/2025 Refill [facility] - [address], [place] [address] Humphrey Esquivel MD Refill Request 05/15/2025 Refill [facility] - [address], [place] [address] Humphrey Esquivel MD Refill Request 05/04/2025 Refill [facility] - [address], [place] [address] Humphrey Esquivel MD Refill Request 03/27/2025 Refill [facility] - [address], [place] [address] Humphrey Esquivel MD Refill Request from Last [...] on file Legal Sex Female 5:32 PM WEATHERIZATION ADMINISTRATOR Gender Identity Not on file Sexual Orientation Straight 08/11/2024 10 :05 AM CDT Last Filed Vital Signs Vital Sign Reading Time Taken Comments Blood Pressure 124/67 10/23/2024 10:52 AM WEATHERIZATION ADMINISTRATOR Pulse 56 10/23/2024 10:52 AM WEATHERIZATION ADMINISTRATOR Temperature 36.8 C (98.3 F) 10/23/2024 10:52 AM WEATHERIZATION ADMINISTRATOR Respiratory Rate 14 10/25/2023 9:34 AM WEATHERIZATION ADMINISTRATOR Oxygen Saturation 100% 10/23/2024 10:52 AM WEATHERIZATION ADMINISTRATOR Inhaled Oxygen Concentration - - Weight 66.7 kg (147 lb) 10/23/2024 10:52 AM WEATHERIZATION ADMINISTRATOR Height 160 cm (5' 3) 10/23/2024 10:52 AM WEATHERIZATION ADMINISTRATOR Body Mass Index 26.04 10/23/2024 10:52 AM WEATHERIZATION ADMINISTRATOR Plan of Treatment Upcoming Encounters Date Type Department Care Team (Late st Contact Info) Description 10/29/2025 10:00 AM WEATHERIZATION ADMINISTRATOR Office Visit [facility] - [place] [address] [place] [address], [place] [phone] Humphrey Esquivel MD [address] [place] [address] [place] [address] Health Maintenance Due Date Last Done Comments [...] 10/11/2010 DIABETES-HGB A1C 02/24/2021 08/27/2020, 03/2013, 09/15/2012 DEPRESSION SCREENING 10/11/2024 DIABETES - URINE PROTEIN SCREENING 10/11/2024 08/27/2020 DIABETES-SERUM CREATININE 10/25/20242023, 04/12/2023, 11/02/2022, Additional history exists COVID-19 VACCINE ( - season) 2025 INFLUENZA VACCINE (#1) 2025 HIB VACCINE Aged [...] Management General On track( 025 10:41 AM WEATHERIZATION ADMINISTRATOR) Emre Broussard RN Note: Expected end date: Interventions: Take all medications as prescribed Let your doctor know right away about any changes in your medications Make sure to request a refill of your medication at least one week prior to your last dose Procedures Procedure Name Priority Date/Time Associated Diagnosis Comments COMPREHENSIVE METABOLIC PANEL Routine 10/25/2023 11:42 AM WEATHERIZATION ADMINISTRATOR Liver cirrhosis secondary to MASH MICROALB/CREAT RATIO URINE (EXTERNAL RESULT ENTRY) Routine 08/27/2020 HEMOGLOBIN A1C (EXTERNAL RESULT ENTRY) Routine 08/27/2020 from Last 3 Months or Most Recently Relevant to Health Maintenance Results * (ABNORMAL) COMPREHENSIVE METABOLIC PANEL (10/25/2023 11:42 AM [facility]) BUN 12 7 - 26 mg/dL 10/25/2023 12:31 PM [facility] Creatinine 0.74 0.56 - 0.96 mg/dL 10/25/2023 12:31 PM [facility] Sodium 144 136 - 145 mmol/L 10/25/2023 12:31 PM [facility] Potassium 4.1 3.5 - 4.5 mmol/L 10/25/2023 12:31 PM [facility] Chloride 108(H) 98 - 107 mmol/L 10/25/2023 12:31 PM [facility] CO2 27 22 - 29 mmol/L 10/25/2023 12:31 PM [facility] Glucose 130(H) 70 - 115 mg/dL 10/25/2023 12:31 PM [facility] Calcium 8.9 8.4 - 10.2 mg/dL 10/25/2023 12:31 PM [facility] Protein Total 6.8 6.0 - 8.3 g/dL 10/25/2023 12:31 PM [facility] Albumin 3.4 3.4 - 5.0 g/dL 10/25/2023 12:31 PM [facility] Bilirubin Total 2.1(H) 0.2 - 1.2 mg/dL 10/25/2023 12:31 PM [facility] Alkaline Phosphatase 88 40 - 150 U/L 10/25/2023 12:31 PM [facility] ALT 33 5 - 55 U/L 10/25/2023 12:31 PM [facility] AST 46(H) 5 - 34 U/L 10/25/2023 12:31 PM [facility] Anion Gap 9 6 - 16 10/25/2023 12:31 PM [facility] BUN/Creatinine Ratio 16 7 - 23 10/25/2023 12:31 PM [facility] Osmolality Calculated 300(H) 275 - 295 mOsm/kg 10/25/2023 12:31 PM [facility] Albumin/Globulin Ratio 1.0(L) 1.1 - 2.3 10/25/2023 12:31 PM [facility] eGFR by CKD-EPI 81(L) >=90 mL/min/1.7 3 m2 10/25/2023 12:31 PM [facility] Blood BLOOD SPECIMEN / Unknown Lab Venipuncture / Unknown 10/25/2023 11:42 AM WEATHERIZATION ADMINISTRATOR 10/25/2023 12:01 PM WEATHERIZATION ADMINISTRATOR us Humphrey Esquivel MD LAB - CHEMISTRY OR DERABLES Final Result [facility] [address] [place] [address], [facility] [phone] * MICROALB/CREAT RATIO URINE (EXTERNAL RESULT ENTRY) [...] Relevant to Health Maintenance Insurance MEDICARE FOR[facility]LY [facility] MEDICARE Care Teams Pipe Organ Technician Relationship Specialty Start Date End Date Unknown, Provider PCP - General 10/23/24
--- OUTSIDE RECORDS SUMMARY | 2025-06-13 15:27 | XMS_ITS | Encounter Summary ---
Author Organization [facility] Address [address] [place] [address] Care Team Providers Care Cardiac Nurse Practitioner Name Role Phone Riley Isreal Primary Care Provider [phone] Unknown, Provider Primary Care Provider Unavaila ble Encounter Details Date Type Department Care Team (Late st Contact Info) Description 09/13/2024 Lab Requisition [facility] - [facility] Lab [address] [place] [phone] Darcie Hernandez DO [address] [facility] [address] [place] [address] Social History Tobacco Use Types Packs/Day Years Used Date Smoking Tobacco: Never Smokeless Tobacco: Never Alcohol Use Standard Drinks/Week Comments No 0 (1 standard drink = 0.6 oz pur e alcohol) Comments Unknown Sex and Gender Information Value Date Recorded Sex Assigned at Not on file Legal Sex Female 5:32 PM ACCOUNTING FILE CLERK Gender Identity Not on file Sexual Orientation Straight 08/11/2024 10 :05 AM CDT documented as of this encounter Plan of Treatment Upcoming Encounters Date Type Department Care Team (Late st Contact Info) Description 10/29/2025 10:00 AM ACCOUNTING FILE CLERK Office Visit [facility] - GI [address] [place] [phone] NeuHumphrey Carmona MD [address] [place] [address] documented as of this encounter Goals Goal Patient Goal Type Associated Problems Recent Progress Patient-Stated? Author Medication Management General On track( 025 10:41 AM ACCOUNTING FILE CLERK) Emre Broussard, RN Note: Expected end date: Interventions: Take all medications as prescribed Let your doctor know right away about any changes in your medications Make sure to request a refill of your medication at least one week prior to your last dose documented as of this encounter Procedures Procedure Name Priority Date/Time Associated Diagnosis Comments DERMATOPATHOLOGY Routine 09/13/2024 9:03 AM ACCOUNTING FILE CLERK documented in this encounter Results * DERMATOPATHOLOGY (09/13/2024 9:03 AM ACCOUNTING FILE CLERK) Case Report Dermatopathology Report Case: [id number] Authorizing Provider: Darcie Hernandez DO Collected: 09/13/2024 09:03 AM Ordering Location: [facility] - Received: 09/13/2024 04:19 PM [facility] Pathologist: Any Brown MD Specimen: Skin, right superior shoulder 4 4:05 PM [facility] Final Diagnosis Specimen A. SKIN, right superior shoulder: BENIGN VERRUCOUS KERATOSIS, INFLAMED (L82.1) 4 4:05 PM [facility] DERMATOPATHOLOGY [facility]ORATORY at [address] [facility] Clinical History R/O NMSC 4 4:05 PM [facility] D[facility]MAT[facility] Gross Description Specimen A: Received is one formalin filled container labeled with the patient's name and designated right superior shoulder. The specimen consists of a shave biopsy measuring 4x4x4 mm. Jar 0. 4:05 PM [facility]ERMAT[facility] Microscopic Description Specimen A. SKIN, right superior shoulder: Sections show hyperkeratosis, papillomatosis, hypergranulosis, and acanthosis. Inflammatory cells are present within the dermis. These histological findings can be seen in a verruca vulgaris or a seborrheic keratosis. 4 4:05 PM [facility] DERMATOPATH[facility]Y [facility] Disclaimer An external and internal positive and negative controls are appropriate for the histochemical, immunohistochemical and immunofluorescence stain(s) in this case (if any), except where stated explicitly. The performance characteristics of the stain(s) cited in this report were developed and its performance characteristic determined by the Dermatopathology Laboratory at [facility], directed by Dr. Javier Carias. These tests need not be, and therefore are not, approved by the [place] Food and Drug Administration. The tests are used for clinical purposes. Billing Codes Specimen Charges Stain Charges 16529 1 4 4:05 PM [facility] DERMAT[facility] Embedded Images 4 4:05 PM [facility] Pathology/Cytolo gy TISSUE SPECIMEN FROM SKIN / Unknown 09/13/2024 9:03 AM ACCOUNTING FILE CLERK 09/13/2024 4:19 PM ACCOUNTING FILE CLERK Darcie Hernandez DO LAB - PATHOLOGY/CYTOLOGY ORDERABLES Final Result DERMATOPATHOLOGY LABORATORY [facility] - Department of Dermatology [facility] Medicine [address] [place] [address], [address] [phone] documented in this encounter Visit Diagnoses Not on filedocumented in this encounter Care Teams Cardiac Nurse Practitioner Relationship Specialty Start Date End Date Isreal Lin [address] [place], [place] [phone] PCP - General Internal Medicine 10/25/23 10/22/24 Unknown, Provider PCP - General 10/23/24 documented as of this encounter
--- OUTSIDE RECORDS SUMMARY | 2025-06-13 15:27 | XMS_ITS | Encounter Summary ---
Author Organization [facility] Address [address] [place] [address] Care Team Providers Care Hyperion Analyst Name Role Phone Unavailable Primary Care Provider Unavailabl e Encounter Details Date Type Department Care Team (Late st Contact Info) Description 06/12/2025 External Device Data ST[place] ABSTRACTION [...] Description 07/24/2025 2:00 PM CDT Office Visit [facility] Oncology and Hematology - Luis [address] [facility] [address] [place] [address] Devin Mcintyre MD [address] [facility] [address] [place] [address] documented as of this encounter Visit Diagnoses Not on filedocumented in this encounter
== END 2025-06-13 14:06 | disposition home or self-care (01) ==
PROVIDERS: PCP Family Medicine; Visit Provider Family Medicine
DX: N39.0 Urinary tract infection, site not specified (principal)
CPT/HCPCS: 81001; 87086; 87186

== ENCOUNTER 2025-06-25 14:39 | Outpatient (CLI) | payer MEDICARE, BC, SELFPAY ==
--- OUTSIDE RECORDS SUMMARY | 2010-02-17 07:45 | XMS_ITS | Continuity of Care Document ---
Author Organization [facility] Address [address] [place] [address] Phone Care Team Providers Care Gps Navigation Installer Name Role Phone Nicola Mcwilliams Unavailable Unavailable [...] Diagnoses Date Provider Providers Copied on Encounter [facility], [address] [place] [address] [address], [place], [place], [address], [place] tel:[phone] SEC [facility] No Information 0-201 0 Poppy Petersen. Francisco Javier [facility] [place] [address], [place], [address], [place]. tel:[phone] Referring Provider: Francisco Javier Leblanc [facility] [address], [place], [address]. tel:[phone] [facility], [address] [place] [address] [address], [place], [place], [address], [place] tel:[phone] SEC [place] [facility] No Information Jul-0 5-200 9 Poppy Edestuardo. [address] [facility] , [address], [place], [address], [place]. tel:[phone] [facility], [address], [place], [place], [address], tel:[phone] SEC [facility] [place] No Information Sep-1 2-200 8 Doiterence Petersen. [address] [facility] [place] , [address], [place], [address], [place]. tel:[phone] Office/outpat ient Visit, [facility], [address], [place], [place], [address], [place] tel:[phone] SEC [facility] [place] No Information Darell-2 5-200 7 Poppy Petersen. [address] [facility] , [address], [place], [address], [place]. tel:[phone] Family History Family Member Type Diagnosis Age At Onset No Information Payers Payer name Insurance type Covered constitution party ID Authoriza tion(s) Medicare [facility] [id number] [facility] [id number] Social History Type Description Quantity Date Captured [...]
--- NOTE | ~2025-06-25 | XR_ITS ---
EXAMINATION: XR chest 2V, 06/25/2025 15:33 CDT HISTORY: R05.9 - Cough, unspecified FOR 2 WEEKS COMPARISON: No comparisons available. Technique: 2 views obtained. Findings: The lungs are clear, no effusion. No pneumothorax. Heart is normal size. Mediastinal and hilar contours are within normal limits. Bony thorax no acute abnormality. Impression: No acute cardiopulmonary abnormality. Reviewed, dictated and finalized at location A. Impression: No acute cardiopulmonary abnormality.
--- NOTE | ~2025-06-25 | XR_ITS ---
XR abdomen/kub 1V 06/25/2025 15:44 INDICATION: Diarrhea TECHNIQUE: KUB COMPARISON: None FINDINGS: Bowel gas pattern is normal. There is no evidence of free air, mass, organomegaly, ascites or obstruction. No abnormal calculi are seen. The bones appear intact. IMPRESSION: 1: No acute abdominal abnormality identified. Reviewed, dictated and finalized at location O.
[2025-06-25 15:29] LABS: Hematocrit 29.9 % (37.0-47.0); Hemoglobin 10.0 g/dL (12.0-15.0); Immature Granulocyte Percent A 0.3 % (0-0.5); Immature Platelet Fraction Pct 1.9 % (0.9-11.2); Lymphocytes Absolute Auto 0.93 K/mm3 (0.9-3.2); Mean Corpuscular HGB Conc 33.4 g/dl (32-36); Mean Corpuscular Hemoglobin 33.7 pg (26-34); Mean Corpuscular Volume 100.7 fl (80-100); Nucleated Red Blood Cells Absolute Auto 0.000 K/mm3 (0.0-0.012); Nucleated Red Blood Cells Perc 0.0 % (0.0-0.2); Platelet Count Result 73 k/mm3 (150-375); Red Blood Count 2.97 M/mm3 (4.2-5.4); White Blood Count 3.9 K/mm3 (4.5-10.0)
[2025-06-25 15:40] LABS: Alanine Aminotransferase 24 U/L (6-35); Albumin Level 3.6 g/dL (3.5-5.1); Alkaline Phosphatase 70 U/L (38-126); Anion Gap 6 mmol/L (4-12); Aspartate Amino Transferase 48 U/L (14-36); Bilirubin,Total 2.0 mg/dL (0.2-1.3); Blood Urea Nitrogen 30 mg/dL (7-17); Calcium 8.3 mg/dL (8.4-10.2); Carbon Dioxide 22 mmol/L (22-30); Chloride 106 mmol/L (98-107); Estimated Glomerular Filt Rate 46; Glucose 151 mg/dL (65-110); Magnesium 2.0 mg/dL (1.6-2.3); Potassium 4.2 mmol/L (3.4-5.0); Sodium 134 mmol/L (137-145); Total Protein 7.0 g/dL (6.3-8.2)
[2025-06-25 15:42] LABS: Hemoglobin A1C 6.2 % (<5.7)
[2025-06-25 15:45] LABS: Add Urine Microscopic? NO; Appearance Urine Clear (Clear); Glucose Urine UA Negative (Negative); Leukocyte Esterase Ur Negative LEU/UL (Negative); Nitrate Urine Negative (Negative); Specific Grav Ur 1.007 (1.001-1.035)
[2025-06-25 15:50] LABS: Poikilocytosis 1+
[2025-06-25 15:51] LABS: Schistocytes None Seen
[2025-06-25 16:15] LABS: Thyroid Stimulating Hormone 3.870 uIU/mL (0.465-4.680)
--- OUTSIDE RECORDS SUMMARY | 2025-06-25 17:38 | XMS_ITS | Clinical Summary ---
Author Organization [facility] Address [address] [facility] [place] [address] Care Team Providers Care Secondary English Teacher Name Role Phone Unknown, Provider Primary Care Provider Unavaila ble Source Comments [facility],non-owned Affiliates and Associated Physician Practices is amultiple site organization consisting of ambulatory clinics and hospital sitesin [place], [place], [place] and [place]. This disclosure is being madepursuant to the Care Everywhere program and may not contain all information available regarding this patient. Last updated 18.[facility] Allergies Active Allergy Reactions Criticality Noted Date [...] by mouth daily before breakfast Active Pediatric Multivit-Lotus Notes Developer als-C (COMPLETE MULTI-VITAMIN PO) Take by mouth [...] daily 90 tablet 1 06/04/20 25 Active furosemide (Lasix) 20 MG tablet [...] came back positive for invasive ductal carcinoma ER/KS positive HER2/duncan negative and Ki-67 of 10%. Status post right-sided lumpectomy done on June 28, 2024. Pathology showed invasive ductal carcinoma 0.5 cm with negative margins. 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 No biopsy. 09/20/12 US ([place]): fatty liver, no focal lesions 05/08/13 EGD [...] PV, no mention of ascites 08/05/24 US ([place]): nodular liver, patent PV but flow suggests [...] came back positive for invasive ductal carcinoma ER/KS positive HER2/duncan negative and Ki-67 of 10%. Status post right-sided lumpectomy done on June 28, 2024. Pathology showed invasive ductal carcinoma 0.5 cm with negative margins. Type 2 diabetes mellitus 04/21/2012 Resolved Problems Problem Noted Date Diagnosed Date Resolved Date H/O: CVA (cerebrovascular accident) 08/30/2023 01/24/2025 Encounters Date Type Department Care Team Description 06/04/2025 Refill [facility] - [place] [address] [facility] [place] [phone] Humphrey Esquivel MD Refill Request 05/15/2025 Refill [facility] - [address] [address] Humphrey Esquivel MD Refill Request 05/04/2025 Refill [facility] - [address] [address] Humphrey Esquivel MD Refill Request 03/27/2025 Refill [facility] - [address] [address] Humphrey Esquivel MD Refill Request from Last [...] on file Legal Sex Female 5:32 PM MANAGER ADMINISTRATION Gender Identity Not on file Sexual Orientation Straight 08/11/2024 10 :05 AM CDT Last Filed Vital Signs Vital Sign Reading Time Taken Comments Blood Pressure 124/67 10/23/2024 10:52 AM MANAGER ADMINISTRATION Pulse 56 10/23/2024 10:52 AM MANAGER ADMINISTRATION Temperature 36.8 C (98.3 F) 10/23/2024 10:52 AM MANAGER ADMINISTRATION Respiratory Rate 14 10/25/2023 9:34 AM MANAGER ADMINISTRATION Oxygen Saturation 100% 10/23/2024 10:52 AM MANAGER ADMINISTRATION Inhaled Oxygen Concentration - - Weight 66.7 kg (147 lb) 10/23/2024 10:52 AM MANAGER ADMINISTRATION Height 160 cm (5' 3) 10/23/2024 10:52 AM MANAGER ADMINISTRATION Body Mass Index 26.04 10/23/2024 10:52 AM MANAGER ADMINISTRATION Plan of Treatment Upcoming Encounters Date Type Department Care Team (Late st Contact Info) Description 10/29/2025 10:00 AM MANAGER ADMINISTRATION Office Visit [facility] - [place] [address] [facility], [place] [address] Humphrey Esquivel MD [address] [place] [address] [place] [address] Health Maintenance Due Date Last Done Comments [...] 11/02/2022, Additional history exists COVID-19 VACCINE ( season) 2025 INFLUENZA VACCINE (#1) 2025 HIB [...] On track( 025 10:41 AM [facility]) Emre Broussard, RN Note: Expected end date: Interventions: Take all medications as prescribed Let your doctor know right away about any changes in your medications Make sure to request a refill of your medication at least one week prior to your last dose Procedures Procedure Name Priority Date/Time Associated Diagnosis Comments COMPREHENSIVE METABOLIC PANEL Routine 10/25/2023 11:42 AM MANAGER ADMINISTRATION Liver cirrhosis secondary to MASH MICROALB/CREAT RATIO URINE (EXTERNAL RESULT ENTRY) Routine 08/27/2020 HEMOGLOBIN A1C (EXTERNAL RESULT ENTRY) Routine 08/27/2020 from Last 3 Months or Most Recently Relevant to Health Maintenance Results * (ABNORMAL) COMPREHENSIVE METABOLIC PANEL (10/25/2023 11:42 AM [facility]) BUN 12 7 - 26 mg/dL 10/25/2023 12:31 PM [facility] Creatinine 0.74 0.56 - 0.96 mg/dL 10/25/2023 12:31 PM [facility] Sodium 144 136 - 145 mmol/L 10/25/2023 12:31 PM [facility] Potassium 4.1 3.5 - 4.5 mmol/L 10/25/2023 12:31 PM [facility] Chloride 108(H) 98 - 107 mmol/L 10/25/2023 12:31 PM [facility] CO2 27 22 - 29 mmol/L 10/25/2023 12:31 PM [facility] Glucose 130(H) 70 - 115 mg/dL 10/25/2023 12:31 PM [facility] Calcium 8.9 8.4 - 10.2 mg/dL 10/25/2023 12:31 PM [facility] Protein Total 6.8 6.0 - 8.3 g/dL 10/25/2023 12:31 PM [facility] Albumin 3.4 3.4 - 5.0 g/dL 10/25/2023 12:31 PM [facility] Bilirubin Total 2.1(H) 0.2 - 1.2 mg/dL 10/25/2023 12:31 PM [facility] Alkaline Phosphatase 88 40 - 150 U/L 10/25/2023 12:31 PM [facility] ALT 33 5 - 55 U/L 10/25/2023 12:31 PM [facility] AST 46(H) 5 - 34 U/L 10/25/2023 12:31 PM [facility] Anion Gap 9 6 - 16 10/25/2023 12:31 PM [facility] BUN/Creatinine Ratio 16 7 - 23 10/25/2023 12:31 PM [facility] Osmolality Calculated 300(H) 275 - 295 mOsm/kg 10/25/2023 12:31 PM [facility] Albumin/Globulin Ratio 1.0(L) 1.1 - 2.3 10/25/2023 12:31 PM [facility] eGFR by CKD-EPI 81(L) >=90 mL/min/1.7 3 m2 10/25/2023 12:31 PM [facility] Blood BLOOD SPECIMEN / Unknown Lab Venipuncture / Unknown 10/25/2023 11:42 AM MANAGER ADMINISTRATION 10/25/2023 12:01 PM MANAGER ADMINISTRATION us Humphrey Esquivel MD LAB - CHEMISTRY OR DERABLES Final Result [facility] [address] [place] [address], [facility] [phone] * MICROALB/CREAT RATIO URINE (EXTERNAL RESULT ENTRY) [...] Recently Relevant to Health Maintenance Insurance [facility]IC[facility] Address: [facility] [id number] [place] [address] MEDICARE Care Teams Secondary English Teacher Relationship Specialty Start Date End Date Unknown, Provider PCP - General 10/23/24
--- OUTSIDE RECORDS SUMMARY | 2025-06-25 17:38 | XMS_ITS | Clinical Summary ---
Author Organization [facility] Address [address] [place] [address] Care Team Providers Care Corn Sheller Operator Name Role Phone Unavailable Primary Care Provider Unavailabl e Allergies Active Allergy Reactions Criticality Noted Date Comments Adhesive Tape-Silicones Other (See Comments) 11/17/2021 Codeine Nausea and Vomiting,Shortness of Breath/Wheezing High 04/21/2012 Acute abd. pain Acute abd. pain, Acute abd. pain, Acute abd. pain, Acute abd. pain Diphenhydramine Hcl Hives High 03/16/2013 Zshsicc-Goc-Sbg Reductase Inhibitors Muscle Pain,Rash Medium 09/11/2019 Medications [...] Encounters Date Type Department Care Team Description 06/19/2025 External Device Data STL ABSTRACTION Provider, Abstract 06/12/2025 External Device Data STL ABSTRACTION Provider, [...] Description 07/24/2025 2:00 PM CDT Office Visit [facility] Oncology and Hematology - [place] [address] [facility] [address] [place] [address] Devin Mcintyre MD [address] [facility] [address] [place] [address] Health Maintenance Due Date Last [...] 09/19/2020 Insurance MEDICARE PART A AND B [facility]
--- OUTSIDE RECORDS SUMMARY | 2025-06-25 17:38 | XMS_ITS | Encounter Summary ---
Author Organization [facility] Address [address] [facility] [place] [address] Care Team Providers Care Change Analyst Name Role Phone Riley Isreal Primary Care Provider [phone] Unknown, Provider Primary Care Provider Unavaila ble Encounter Details Date Type Department Care Team (Late st Contact Info) Description 09/13/2024 Lab Requisition [facility] - DermPath Lab [address] [place] [address] Darcie Hernandez DO [address] [facility] 3 [place] [address] Social History Tobacco Use Types Packs/Day Years Used Date Smoking Tobacco: Never Smokeless Tobacco: Never Alcohol Use Standard Drinks/Week Comments No 0 (1 standard drink = 0.6 oz pur e alcohol) Comments Unknown Sex and Gender Information Value Date Recorded Sex Assigned at Not on file Legal Sex Female 5:32 PM CARBURETOR REBUILDER Gender Identity Not on file Sexual Orientation Straight 08/11/2024 10 :05 AM CDT documented as of this encounter Plan of Treatment Upcoming Encounters Date Type Department Care Team (Late st Contact Info) Description 10/29/2025 10:00 AM CARBURETOR REBUILDER Office Visit [facility] - GI [address] [place] [address] NeuHumphrey Carmona MD [address] [place] [address] documented as of this encounter Goals Goal Patient Goal Type Associated Problems Recent Progress Patient-Stated? Author Medication Management General On track( 025 10:41 AM CARBURETOR REBUILDER) Emre Broussard, RN Note: Expected end date: Interventions: Take all medications as prescribed Let your doctor know right away about any changes in your medications Make sure to request a refill of your medication at least one week prior to your last dose documented as of this encounter Procedures Procedure Name Priority Date/Time Associated Diagnosis Comments DERMATOPATHOLOGY Routine 09/13/2024 9:03 AM CARBURETOR REBUILDER documented in this encounter Results * DERMATOPATHOLOGY (09/13/2024 9:03 AM CARBURETOR REBUILDER) Case Report Dermatopathology Report Case: [id number] Authorizing Provider: Darcie Hernandez DO Collected: 09/13/2024 09:03 AM Ordering Location: [facility] - Received: 09/13/2024 04:19 PM DermPath Lab Pathologist: Any Brown MD Specimen: Skin, right superior shoulder 4 4:05 PM [facility] DERMATOPATHOLOGY LABORATORY Final Diagnosis Specimen A. SKIN, right superior shoulder: BENIGN VERRUCOUS KERATOSIS, INFLAMED (L82.1) 4 4:05 PM [facility] DERMATOPATHOLOGY LABORATORY at [address] [facility] Clinical History R/O NMSC 4 4:05 PM [facility] DERMATOPATHOLOGY LABORATORY Gross Description Specimen A: Received is one formalin filled container labeled with the patient's name and designated right superior shoulder. The specimen consists of a shave biopsy measuring 4x4x4 mm. Jar 0. 4:05 PM [facility] DERMATOPATHOLOGY LABORATORY Microscopic Description Specimen A. SKIN, right superior shoulder: Sections show hyperkeratosis, papillomatosis, hypergranulosis, and acanthosis. Inflammatory cells are present within the dermis. These histological findings can be seen in a verruca vulgaris or a seborrheic keratosis. 4 4:05 PM [facility] DERMATOPATHOLOGY LABORATORY Disclaimer An external and internal positive and negative controls are appropriate for the histochemical, immunohistochemical and immunofluorescence stain(s) in this case (if any), except where stated explicitly. The performance characteristics of the stain(s) cited in this report were developed and its performance characteristic determined by the Dermatopathology Laboratory at [facility], directed by Dr. Javier Carias. These tests need not be, and therefore are not, approved by the [place] Food and Drug Administration. The tests are used for clinical purposes. Billing Codes Specimen Charges Stain Charges 03705 1 4 4:05 PM [facility] DERMATOPATHOLOGY LABORATORY Embedded Images 4 4:05 PM [facility] DERMATOPATHOLOGY LABORATORY Pathology/Cytolo gy TISSUE SPECIMEN FROM SKIN / Unknown 09/13/2024 9:03 AM CARBURETOR REBUILDER 09/13/2024 4:19 PM CARBURETOR REBUILDER Darcie Hernandez DO LAB - PATHOLOGY/CYTOLOGY ORDERABLES Final Result DERMATOPATHOLOGY LABORATORY [facility] - Department of Dermatology [facility] Medicine [address] [place] [address], [address] [phone] documented in this encounter Visit Diagnoses Not on filedocumented in this encounter Care Teams Change Analyst Relationship Specialty Start Date End Date Isreal Lin [address] [place], [place] [id number] PCP - General Internal Medicine 10/25/23 10/22/24 Unknown, Provider PCP - General 10/23/24 documented as of this encounter
--- OUTSIDE RECORDS SUMMARY | 2025-06-25 17:38 | XMS_ITS | Encounter Summary ---
Author Organization [facility] Healthcare Address [address] [place] [address] Care Team Providers Care Yard Conductor Name Role Phone Karin Cordoba NP Primary Care Provider Isreal Lin MD Primary Care Provider [phone] Encounter Details Date Type Department Care Team (Late st Contact Info) Description 12/21/2017 Orders Only [facility] Health Information Management [address] [place] [address] Scanning, Provider Social History Tobacco Use Types Packs/Day Years Used Date Smoking Tobacco: Never Smokeless Tobacco: Never Alcohol Use Standard Drinks/Week Comments No 0 (1 standard drink = 0.6 oz pur e alcohol) Comments Unknown Sex and Gender Information Value Date Recorded Sex Assigned at Not on file Legal 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 Female 3:37 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 Gender Identity Female 01/28/2024 11:49 PM CDT Sexual Orientation Straight 08/12/2022 12 :04 PM CDT documented as of this encounter Plan of Treatment Not on file documented as of this encounter Procedures Procedure Name Priority Date/Time Associated Diagnosis Comments SCAN - RADIOLOGY/IMAGING 12/21/2017 documented in this encounter Results * SCAN - RADIOLOGY/IMAGING (12/21/2017) Anatomical Region Laterality Modality Other us Provider Scanning Final Result documented in this encounter Visit Diagnoses Not on filedocumented in this encounter Care Teams Yard Conductor Relationship Specialty Start Date End Date Karin Cordoba NP PCP - General Nurse Practitioner 08/20/17 08/29/23 Isreal Lin MD PCP - General Family Practice 08/30/23 documented as of this encounter
--- OUTSIDE RECORDS SUMMARY | 2025-06-25 17:38 | XMS_ITS | Clinical Summary ---
Author Organization [facility] [address] Address [address] [place] [address] Care Team Providers Care Tax Processor Name Role Phone Isreal Lin MD Primary Care Provider [phone] Allergies Active Allergy Reactions Criticality Noted Date Comments Adhesive Tape-Silicones Hives Medium 03/16/2013 Codeine Other (See comments) Low 04/21/2012 Acute abd. pain Acute abd. pain, Loratadine-Pseudoephed rine Other (See comments) Low 11/17/2021 Msawwfr-Coy-Mrk Reductase Inhibitors Other (See comments) Low Medications [...] 1 tablet (100 mcg total) by mouth contribution solicitor before breakfast 07/31/20 21 Active ferrous sulfate 325 mg (65 mg of elemental iron) tabletIndicatio ns:Iron Deficiency Anemia Take 1 tablet (65 mg of elemental iron total) by mouth every other day In AM 07/26/20 23 Active losartan (COZAAR) 25 mg tabletIndicatio ns:hypertension Take 1 tablet (25 mg total) by mouth nightly Active sod mupsi-xcrbod-si ueez bottle 2,300-700 mg kit Administer 2 [...] unspecified hepatic cirrhosis type Coronary arteriosclerosis in [place] artery 06/22 Overview (01/21/2017): 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 [...] Description 05/30/2025 2:20 PM CDT Office Visit [facility] Medicine ENT [address] [facility] Medical Office Building [address] [place] [phone] Samir Khan MD Chronic pansinusitis (Primary Dx); Nasal polyps 03/28/2025 2:20 PM CDT Office Visit [facility] ENT [address] [facility] Office Building [address] [place] [phone] Samir Khan MD Chronic pansinusitis (Primary Dx); [...] on file Legal Sex Female 3:37 AM ICD 9 CODER Gender Identity Female 01/28/2024 11:49 PM CDT Sexual Orientation Straight 08/12/2022 12 :04 PM CDT Obstetrics History Last Filed Vital Signs Vital Sign Reading Time Taken Comments Blood Pressure 157/59 02/08/2025 1:39 PM CDT Pulse 64 02/08/2025 1:39 PM CDT Temperature 36 C (96.8 F) 12/17/2023 1:10 PM ICD 9 CODER Respiratory Rate 16 05/31/2024 12:56 PM CDT [...] ed Result - Final Performing Organization Address City/State/[facility] Co de Phone Number EXTERNAL LAB from Last 3 Months or Most Recently Relevant to Health Maintenance [place] [address] MEDICARE [facility] [employer] MEDICARE [facility] [employer] Care Teams Tax Processor Relationship Specialty Start Date End Date Isreal Lin MD PCP - General Family Practice 08/30/23
== END 2025-06-25 14:40 | disposition home or self-care (01) ==
PROVIDERS: PCP Family Medicine; Visit Provider Family Medicine
DX: R05.9 Cough, unspecified (principal); I10 Essential (primary) hypertension; E11.69 Type 2 diabetes mellitus with other specified complication; K21.9 Gastro-esophageal reflux disease without esophagitis; K74.60 Unspecified cirrhosis of liver; K46.9 Unspecified abdominal hernia without obstruction or gangrene; R19.7 Diarrhea, unspecified; M85.80 Other specified disorders of bone density and structure, unspecified site; R19.8 Other specified symptoms and signs involving the digestive system and abdomen
CPT/HCPCS: 36415; 71046; 74018; 80053; 81003; 82306; 83036; 83735; 84443; 85025; 85055

== ENCOUNTER 2025-06-26 15:04 | Outpatient (CLI) | payer MEDICARE, BC, SELFPAY ==
--- OUTSIDE RECORDS SUMMARY | 2010-02-17 07:45 | XMS_ITS | Continuity of Care Document ---
Author Organization [facility] Address [address] [place] [address] Phone Care Team Providers Care Etymology Professor Name Role Phone Nicola Mcwilliams Unavailable Unavailable [...] Diagnoses Date Provider Providers Copied on Encounter [facility], [address] [place] [address] [address], [place], [place], [address], [place] tel:[phone] SEC [facility] No Information 0-201 0 Poppy Petersen. Francisco Javier [facility] [place] [address], [place], [address], [place]. tel:[phone] Referring Provider: Francisco Javier Leblanc [facility] [address], [place], [address]. tel:[phone] [facility], [address] [address] [address], [place], [place], [address], [place] tel:[phone] SEC [place] [facility] No Information Jul-0 5-200 9 Poppy Edestuardo. [address] [facility] , [address], [place], [address], [place]. tel:[phone] [facility], [address], [place], [place], [address], tel:[phone] SEC [facility] No Information Sep-1 2-200 8 Doiterence Petersen. [address] [facility] [place] , [address], [place], [address], [place]. tel:[phone] Office/outpat ient Visit, [facility], [address], [place], [place], [address], [place] tel:[phone] SEC [facility] No Information Darell-2 5-200 7 Poppy Petersen. [address] [facility] , [address], [place], [address], [place]. tel:[phone] Family History Family Member Type Diagnosis Age At Onset No Information Payers Payer name Insurance type Covered constitution party ID Authoriza tion(s) Medicare [facility] [id number] [facility] [id number] Social History Type Description Quantity Date Captured [...]
[2025-06-26 15:44] LABS: IFOB Positive Control Positive; Immunochemical Fecal Occult Bl Positive (N)
--- OUTSIDE RECORDS SUMMARY | 2025-06-26 16:30 | XMS_ITS | Clinical Summary ---
Author Organization [facility] [address] Address [address] [place] [address] Care Team Providers Care Comb Fixer Name Role Phone Isreal Lin MD Primary Care Provider [phone] Allergies Active Allergy Reactions Criticality Noted Date Comments Adhesive Tape-Silicones Hives Medium 03/16/2013 Codeine Other (See comments) Low 04/21/2012 Acute abd. pain Acute abd. pain, Loratadine-Pseudoephed rine Other (See comments) Low 11/17/2021 Ufhcxdu-Zng-Vaj Reductase Inhibitors Other (See comments) Low Medications [...] 1 tablet (100 mcg total) by mouth network program manager before breakfast 07/31/20 21 Active ferrous sulfate 325 mg (65 mg of elemental iron) tabletIndicatio ns:Iron Deficiency Anemia Take 1 tablet (65 mg of elemental iron total) by mouth every other day In AM 07/26/20 23 Active losartan (COZAAR) 25 mg tabletIndicatio ns:hypertension Take 1 tablet (25 mg total) by mouth nightly Active sod apeam-ajtmqs-mw ueez bottle 2,300-700 mg kit Administer 2 [...] unspecified hepatic cirrhosis type Coronary arteriosclerosis in [place] artery 06/22 Overview (01/21/2017): Coronary artery disease involving [place] coronary artery of [place] heart without angina pectoris Mixed diabetic hyperlipidemi [...] 05/30/2025 2:20 PM CDT Office Visit [facility] Medicine ENT [address] [facility] Medical Office Building [address] [place] [phone] Samir Khan MD Chronic pansinusitis (Primary Dx); Nasal polyps 03/28/2025 2:20 PM CDT Office Visit [facility] ENT [address] [facility] Office Building [address] [place] [phone] Samir Khan MD Chronic pansinusitis (Primary Dx); [...] on file Legal Sex Female 3:37 AM REGISTERED DENTAL 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 Gender Identity Female 01/28/2024 11:49 PM CDT Sexual Orientation Straight 08/12/2022 12 :04 PM CDT Obstetrics History Last Filed Vital Signs Vital Sign Reading Time Taken Comments Blood Pressure 157/59 02/08/2025 1:39 PM CDT Pulse 64 02/08/2025 1:39 PM CDT Temperature 36 C (96.8 F) 12/17/2023 1:10 PM REGISTERED DENTAL ASSISTANT Respiratory Rate 16 05/31/2024 12:56 PM CDT [...] ed Result - Final Performing Organization Address City/State/[facility] Co de Phone Number EXTERNAL LAB from Last 3 Months or Most Recently Relevant to Health Maintenance Insurance MEDICARE MEDICARE [facility] [employer] MEDICARE [facility] [employer] Care Teams Comb Fixer Relationship Specialty Start Date End Date Isreal Lin MD PCP - General Family Practice 08/30/23
--- OUTSIDE RECORDS SUMMARY | 2025-06-26 16:30 | XMS_ITS | Encounter Summary ---
Author Organization [facility] Address [address] [facility] [place] [address] Care Team Providers Care Assistant Women'S Basketball Coach Name Role Phone Riley Isreal Primary Care Provider [phone] Unknown, Provider Primary Care Provider Unavaila ble Encounter Details Date Type Department Care Team (Late st Contact Info) Description 09/13/2024 Lab Requisition [facility] - DermPath Lab [address] [place] [phone] Darcie Hernadnez DO [address] [facility] 3 [place] [address] Social History Tobacco Use Types Packs/Day Years Used Date Smoking Tobacco: Never Smokeless Tobacco: Never Alcohol Use Standard Drinks/Week Comments No 0 (1 standard drink = 0.6 oz pur e alcohol) Comments Unknown Sex and Gender Information Value Date Recorded Sex Assigned at Not on file Legal Sex Female 5:32 PM COMPLAINT CLERK Gender Identity Not on file Sexual Orientation Straight 08/11/2024 10 :05 AM CDT documented as of this encounter Plan of Treatment Upcoming Encounters Date Type Department Care Team (Late st Contact Info) Description 10/29/2025 10:00 AM COMPLAINT CLERK Office Visit [facility] - GI [address] [place] [phone] NeuHumphrey Carmona MD [address] [place] [address] documented as of this encounter Goals Goal Patient Goal Type Associated Problems Recent Progress Patient-Stated? Author Medication Management General On track( 025 10:41 AM COMPLAINT CLERK) Emre Broussard, RN Note: Expected end date: Interventions: Take all medications as prescribed Let your doctor know right away about any changes in your medications Make sure to request a refill of your medication at least one week prior to your last dose documented as of this encounter Procedures Procedure Name Priority Date/Time Associated Diagnosis Comments DERMATOPATHOLOGY Routine 09/13/2024 9:03 AM COMPLAINT CLERK documented in this encounter Results * DERMATOPATHOLOGY (09/13/2024 9:03 AM COMPLAINT CLERK) Case Report Dermatopathology Report Case: [id number] Authorizing Provider: Darcie Hernandez DO Collected: 09/13/2024 09:03 AM Ordering Location: [facility] - Received: 09/13/2024 04:19 PM DermPath Lab Pathologist: Any Brown MD Specimen: Skin, right superior shoulder 4 4:05 PM [facility] Final Diagnosis Specimen A. SKIN, right superior shoulder: BENIGN VERRUCOUS KERATOSIS, INFLAMED (L82.1) 4 4:05 PM [facility] at [address] [facility] Clinical History R/O NMSC 4 4:05 PM [facility] Gross Description Specimen A: Received is one formalin filled container labeled with the patient's name and designated right superior shoulder. The specimen consists of a shave biopsy measuring 4x4x4 mm. Jar 0. 4:05 PM [facility] Microscopic Description Specimen A. SKIN, right superior shoulder: Sections show hyperkeratosis, papillomatosis, hypergranulosis, and acanthosis. Inflammatory cells are present within the dermis. These histological findings can be seen in a verruca vulgaris or a seborrheic keratosis. 4 4:05 PM [facility] Disclaimer An external and internal positive and negative controls are appropriate for the histochemical, immunohistochemical and immunofluorescence stain(s) in this case (if any), except where stated explicitly. The performance characteristics of the stain(s) cited in this report were developed and its performance characteristic determined by the Dermatopathology Laboratory at [facility], directed by Dr. Javier Carias. These tests need not be, and therefore are not, approved by the [place] Food and Drug Administration. The tests are used for clinical purposes. Billing Codes Specimen Charges Stain Charges 98489 1 4 4:05 PM [facility] Embedded Images 4 4:05 PM [facility] Pathology/Cytolo gy TISSUE SPECIMEN FROM SKIN / Unknown 09/13/2024 9:03 AM COMPLAINT CLERK 09/13/2024 4:19 PM COMPLAINT CLERK Darcie Hernandez DO LAB - PATHOLOGY/CYTOLOGY ORDERABLES Final Result DERMATOPATHOLOGY LABORATORY [facility] - Department of Dermatology [facility] Medicine [address] [place] [address], [address] [phone] documented in this encounter Visit Diagnoses Not on filedocumented in this encounter Care Teams Assistant Women'S Basketball Coach Relationship Specialty Start Date End Date Isreal Lin [address] [place], [place] [id number] PCP - General Internal Medicine 10/25/23 10/22/24 Unknown, Provider PCP - General 10/23/24 documented as of this encounter
--- OUTSIDE RECORDS SUMMARY | 2025-06-26 16:30 | XMS_ITS | Clinical Summary ---
Author Organization [facility] Melia Keenan Address [address] [place] [address] Care Team Providers Care Stenocaptioner Name Role Phone Unavailable Primary Care Provider Unavailabl e Allergies Active Allergy Reactions Criticality Noted Date Comments Adhesive Tape-Silicones Other (See Comments) 11/17/2021 Codeine Nausea and Vomiting,Shortness of Breath/Wheezing High 04/21/2012 Acute abd. pain Acute abd. pain, Acute abd. pain, Acute abd. pain, Acute abd. pain Diphenhydramine Hcl Hives High 03/16/2013 Plldvwi-Leu-Nsf Reductase Inhibitors Muscle Pain,Rash Medium 09/11/2019 Medications [...] Description 07/24/2025 2:00 PM CDT Office Visit [facility] Oncology and Hematology - [place] [address] [facility] [address] [place] [address] Devin Mcintyre MD [address] [facility] [address] [place] [address] Health Maintenance Due Date Last [...] 09/19/2020 Insurance MEDICARE PART A AND B [facility]
--- OUTSIDE RECORDS SUMMARY | 2025-06-26 16:30 | XMS_ITS | Encounter Summary ---
Author Organization [facility] Healthcare Address [address] [place] [address] Care Team Providers Care Meter And Service Line Inspector Name Role Phone Karin Cordoba NP Primary Care Provider [phone] Isreal Lin MD Primary Care Provider [phone] Encounter Details Date Type Department Care Team (Late st Contact Info) Description 12/21/2017 Orders Only [facility] Health Information Management [address] [place] [address] Scanning, Provider Social History Tobacco Use Types Packs/Day Years Used Date Smoking Tobacco: Never Smokeless Tobacco: Never Alcohol Use Standard Drinks/Week Comments No 0 (1 standard drink = 0.6 oz pur e alcohol) Comments Unknown Sex and Gender Information Value Date Recorded Sex Assigned at Not on file Legal Sex Female 3:37 AM SEPARATOR TENDER Gender Identity Female 01/28/2024 11:49 PM [...] on filedocumented in this encounter Care Teams Meter And Service Line Inspector Relationship Specialty Start Date End Date Karin Cordoba NP PCP - General Nurse Practitioner 08/20/17 08/29/23 Isreal Lin MD PCP - General Family Practice 08/30/23 documented as of this encounter
--- OUTSIDE RECORDS SUMMARY | 2025-06-26 16:30 | XMS_ITS | Clinical Summary ---
Author Organization [facility] Address [address] [facility] [place] [address] Care Team Providers Care Electro Winning Operator Name Role Phone Unknown, Provider Primary Care Provider Unavaila ble Source Comments [facility],non-owned Affiliates and Associated Physician Practices is amultiple site organization consisting of ambulatory clinics and hospital sitesin [place], [place], [place] and [place]. This disclosure is being madepursuant to the Care Everywhere program and may not contain all information available regarding this patient. 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 Status post right-sided lumpectomy done on June 28, 2024. Pathology showed invasive ductal carcinoma 0.5 cm with negative margins. Nonrheumatic aortic valve stenosis 05/31/2024 Hyperlipidemia 11/13/2019 Esophageal varices 04/24/2019 Overview (04/24/2019): 03/22/19 EGD ([place]): moderate esophageal varices, 5 mm biopsied Hypertension 03/13/2018 Gilbert's syndrome 03/13/2018 Overview (03/13/2018): Direct bili usually 0.5 Coronary arteriosclerosis in [place] artery 06/22 Overview (01/24/2025): Coronary artery disease involving [place] coronary artery of [place] heart without angina pectoris Osteoarthritis 04/06/2016 Overview (01/10/2018): Left hip 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 No biopsy. 09/20/12 [place] ([place]): fatty liver, no focal lesions 05/08/13 EGD [...] PV, no mention of ascites 08/05/24 [place] ([place]): nodular liver, patent PV but flow suggests [...] came back positive for invasive ductal carcinoma ER/[place] positive HER2/duncan negative and Ki-67 of 10%. Status post right-sided lumpectomy done on June 28, 2024. Pathology showed invasive ductal carcinoma 0.5 cm with negative margins. Type 2 diabetes mellitus 04/21/2012 Resolved Problems Problem Noted Date Diagnosed Date Resolved Date H/O: CVA (cerebrovascular accident) 08/30/2023 01/24/2025 Encounters Date Type Department Care Team Description 06/04/2025 Refill [facility] - [place] [address] [facility] [place] [phone] Humphrey Esquivel MD Refill Request 05/15/2025 Refill [facility] - [address] [phone] Humphrey Esquivel MD Refill Request 05/04/2025 Refill [facility] - [address] [phone] Humphrey Esquivel MD Refill Request 03/27/2025 Refill [facility] - [address] [phone] Humphrey Esquivel MD Refill Request from Last [...] on file Legal Sex Female 5:32 PM PURCHASING INTERN Gender Identity Not on file Sexual Orientation Straight 08/11/2024 10 :05 AM CDT Last Filed Vital Signs Vital Sign Reading Time Taken Comments Blood Pressure 124/67 10/23/2024 10:52 AM PURCHASING INTERN Pulse 56 10/23/2024 10:52 AM PURCHASING INTERN Temperature 36.8 C (98.3 F) 10/23/2024 10:52 AM PURCHASING INTERN Respiratory Rate 14 10/25/2023 9:34 AM PURCHASING INTERN Oxygen Saturation 100% 10/23/2024 10:52 AM PURCHASING INTERN Inhaled Oxygen Concentration - - Weight 66.7 kg (147 lb) 10/23/2024 10:52 AM PURCHASING INTERN Height 160 cm (5' 3) 10/23/2024 10:52 AM PURCHASING INTERN Body Mass Index 26.04 10/23/2024 10:52 AM PURCHASING INTERN Plan of Treatment Upcoming Encounters Date Type Department Care Team (Late st Contact Info) Description 10/29/2025 10:00 AM PURCHASING INTERN Office Visit [facility] - [place] [address] [facility] [place] [address] Humphrey Esquivel MD [address] [place] [address] [place] [address] Health Maintenance Due Date Last Done Comments [...] Management General On track( 025 10:41 AM [facility]) Emre Broussard, RN Note: Expected end date: Interventions: Take all medications as prescribed Let your doctor know right away about any changes in your medications Make sure to request a refill of your medication at least one week prior to your last dose Procedures Procedure Name Priority Date/Time Associated Diagnosis Comments COMPREHENSIVE METABOLIC PANEL Routine 10/25/2023 11:42 AM PURCHASING INTERN Liver cirrhosis secondary to MASH MICROALB/CREAT RATIO URINE (EXTERNAL RESULT ENTRY) Routine 08/27/2020 HEMOGLOBIN A1C (EXTERNAL RESULT ENTRY) Routine 08/27/2020 from Last 3 Months or Most Recently Relevant to Health Maintenance Results * (ABNORMAL) COMPREHENSIVE METABOLIC PANEL (10/25/2023 11:42 AM [facility]) BUN 12 7 - 26 mg/dL 10/25/2023 12:31 PM [facility] Creatinine 0.74 0.56 - 0.96 mg/dL 10/25/2023 12:31 PM [facility] Sodium 144 136 - 145 mmol/L 10/25/2023 12:31 PM [facility] Potassium 4.1 3.5 - 4.5 mmol/L 10/25/2023 12:31 PM [facility] Chloride 108(H) 98 - 107 mmol/L 10/25/2023 12:31 PM [facility] CO2 27 22 - 29 mmol/L 10/25/2023 12:31 PM [facility] Glucose 130(H) 70 - 115 mg/dL 10/25/2023 12:31 PM [facility] Calcium 8.9 8.4 - 10.2 mg/dL 10/25/2023 12:31 PM [facility] Protein Total 6.8 6.0 - 8.3 g/dL 10/25/2023 12:31 PM [facility] Albumin 3.4 3.4 - 5.0 g/dL 10/25/2023 12:31 PM [facility] Bilirubin Total 2.1(H) 0.2 - 1.2 mg/dL 10/25/2023 12:31 PM [facility] Alkaline Phosphatase 88 40 - 150 U/L 10/25/2023 12:31 PM [facility] ALT 33 5 - 55 U/L 10/25/2023 12:31 PM [facility] AST 46(H) 5 - 34 U/L 10/25/2023 12:31 PM [facility] Anion Gap 9 6 - 16 10/25/2023 12:31 PM [facility] BUN/Creatinine Ratio 16 7 - 23 10/25/2023 12:31 PM [facility] Osmolality Calculated 300(H) 275 - 295 mOsm/kg 10/25/2023 12:31 PM [facility] Albumin/Globulin Ratio 1.0(L) 1.1 - 2.3 10/25/2023 12:31 PM [facility] eGFR by CKD-EPI 81(L) >=90 mL/min/1.7 3 m2 10/25/2023 12:31 PM [facility] Blood BLOOD SPECIMEN / Unknown Lab Venipuncture / Unknown 10/25/2023 11:42 AM PURCHASING INTERN 10/25/2023 12:01 PM PURCHASING INTERN us Humphrey Esquivel MD LAB - CHEMISTRY OR DERABLES Final Result [facility] [address] [place] [phone], [facility] [phone] * MICROALB/CREAT RATIO URINE (EXTERNAL RESULT ENTRY) [...] Recently Relevant to Health Maintenance Insurance MEDICARE [facility] Address: [facility] [id number] [place] [address] MEDICARE Care Teams Electro Winning Operator Relationship Specialty Start Date End Date Unknown, Provider PCP - General 10/23/24
== END 2025-06-26 15:05 | disposition home or self-care (01) ==
PROVIDERS: PCP Family Medicine; Visit Provider Family Medicine
DX: E11.69 Type 2 diabetes mellitus with other specified complication (principal); I10 Essential (primary) hypertension; K21.9 Gastro-esophageal reflux disease without esophagitis; K74.60 Unspecified cirrhosis of liver; K46.9 Unspecified abdominal hernia without obstruction or gangrene; R19.7 Diarrhea, unspecified
CPT/HCPCS: 82274; 87045; 87046; 87427; 89055

== ENCOUNTER 2025-07-04 01:42 | Day surgery (SDC) | payer MEDICARE, BC, SELFPAY ==
[2025-06-29 15:09] VITALS: BMI 27.1
[2025-07-04 11:10] VITALS: BP 146/54; PULSE 67; RESP 18; TEMP 36.6; O2SAT 100
[2025-07-04] MEDS: LACTATED RINGERS 1,000 ML 150 ML IV CONT (11:13)
--- NOTE | 2025-07-04 11:20 | WPDANESEPPF ---
Anes - Initial Pre Proc Eval Procedure: Operation Date: 07/04/25 12:30 Proposed Procedures p EGD & Diagnostic Colonoscopy - Antonio Zuniga MD Date/Time: 07/04/25 11:20 Surgeon: Antonio Zuniga MD Pre Op Diagnosis: anemia,cirrhosis,gerd, chronic diarrhea Patient Data Age: 84 Gender: F Height: 1.6 m Weight: 70.6 kg Last Vital Signs Temp 36.6 C 07/04/25 11:10 Pulse 67 07/04/25 11:10 Resp 18 07/04/25 11:10 BP 146/54 H 07/04/25 11:10 Pulse Ox 100 07/04/25 11:10 O2 Del Method Room Air 07/04/25 11:10 Allergies Allergy/AdvReac Type Severity Reaction Status Date / Time codeine Allergy Intermediate ABDOMINAL Verified 07/04/25 11:08 CRAMPING/DISTRESS acetaminophen (From [place]) AdvReac Severe Vomiting Verified 07/04/25 11:08 hydrocodone (From [place]) AdvReac Severe Vomiting Verified 07/04/25 11:08 adhesive tape AdvReac Unknown RASH, Verified 07/04/25 11:08 REDNESS Home Medications ?Medication ?Instructions ?Recorded ?Confirmed ?Type cyclosporine 0.05 % eye drops in a 0.05 % ophthalmic (eye) BID 09/04/19 07/04/25 History dropperette (Restasis) nadolol 40 mg tablet (Corgard) 40 mg PO DAILY 10/21/21 07/04/25 History ascorbic acid (vitamin C) 500 mg 500 mg PO DAILY 10/15/22 07/04/25 History capsule gionapjoncrm-Zc-xwlw-minerals 1 tablet PO DAILY #30 tabs 01/13/23 07/04/25 Rx mupirocin 2 % topical ointment 2 applic topical DAILY 03/20/24 06/29/25 History calcium 250 mg tablet 600 mg PO DAILY 06/16/24 07/04/25 History furosemide 20 mg tablet 20 mg PO QAM 08/28/24 07/04/25 History tamoxifen 20 mg tablet 20 mg PO DAILY 12/25/24 07/04/25 History losartan 25 mg tablet See Rx Instructions .Route 01/31/25 07/04/25 Rx .COMPLEX #90 tabs levothyroxine 100 mcg tablet 100 mcg PO DAILY #90 tabs 03/06/25 07/04/25 Rx ferrous sulfate 325 mg (65 mg See Rx Instructions .Route 03/08/25 07/04/25 Rx iron) tablet .COMPLEX #90 tabs omeprazole 20 mg capsule,delayed See Rx Instructions .Route 03/16/25 07/04/25 Rx release .COMPLEX #30 caps losartan 50 mg tablet See Rx Instructions .Route 06/08/25 07/04/25 Rx .COMPLEX #90 tabs Patient hx anesthesia problems: none Family hx anesthesia problems: none Results Review: All pre-operative results and documents have been reviewed as part of the pre-operative evaluation. [facility] Past Medical History Medical History Parathyroid abnormality Removed 2002 Vaginal polyp Removed 1996 Appendix disease Gall bladder disease Acute sinusitis Chronic sinusitis Screening for osteoporosis Cirrhosis Thrombocytopenia Varicose vein of leg Colon polyp Removed 1993, 2007, 2012, 2018, 2021 Skin cancer of face Dyslipidemia Dry eyes, bilateral GERD (gastroesophageal reflux disease) Lumbar degenerative disc disease Urinary incontinence Osteoarthritis Hypothyroidism Chronic sinusitis Hypertension DM type 2 (diabetes mellitus, type 2) Esophageal varices Cirrhosis Surgical History Surgical History H/O arthroscopic knee surgery History of cataract surgery S/P cholecystectomy Hx of appendectomy H/O sinus surgery Family History Family History Father Hypertension Mother Cerebrovascular accident Valvular heart disease Diabetes mellitus Hypertension Heart disease Daughter Breast cancer Diabetes mellitus Son Hypertension Sibling Diabetes mellitus Alcoholism Daughter Breast cancer Diabetes mellitus Hypertension Grandparent Alcoholism Diabetes mellitus Social History Social History Smoking status: Never smoker Alcohol intake: never Substance use: never Substance use type: does not use Do You Feel Safe in your Home?: Yes Lack of Transportation: No Lack of Food: Never True Current Housing: I Have Housing Concerned About Future Housing: No Difficulty Paying Gas/Electric Bills: No Difficulty Paying for Meds: No Currently Unemployed: No Education: Trade/Vocational Certificate Difficulty w/ Childcare or Family Care: No Living arrangements: with family Spiritual care concerns: No Anes - Eval Final PreProcedure Day of Procedure 07/04/25 11:20 Patient weight: overweight Heart: regular rate and rhythm Lungs: clear to auscultation Airway: Mallampati scale class II Neurological: alert and oriented Last oral intake: >/= 8 hours ASA classification: III Emergent: no Anesthetic plan: proceed Anesthesia type and monitoring: general GIVS and standard monitoring Results Review: All pre-operative results and documents have been reviewed as part of the pre-operative evaluation. Informed Consent: The patient's anesthetic plan and its attendant risks and benefits were discussed with the patient/family/POA. Questions were solicited and answers provided to the satisfaction of the patient/family/POA.
[2025-07-04] MEDS: SIMETHICONE ORAL SUSPENSION 20 MG/0.3 ML 30 ML BOTTLE 1.8 ML PO (11:37)
--- NOTE | 2025-07-04 12:14 | PM.IMHP ---
H&P: HPI History of Present Illness Date/Time: 07/04/25 12:14 Chief Complaint: Abdominal pain-diarrhea Narrative: the patient has a longstanding history of cirrhosis, and large varices were found and an EGD in 2021, in addition to a large antral hyperplastic polyp that was removed. In addition the patient endorses chronic diarrhea for several months and recently exacerbated. Of note, she has a history of cholecystectomy. Review of Systems Review of Systems: All systems reviewed & are unremarkable except as noted in HPI and below PMFSH Past Medical History Medical History Parathyroid abnormality Removed 2002 Vaginal polyp Removed 1996 Appendix disease Gall bladder disease Acute sinusitis Chronic sinusitis Screening for osteoporosis Cirrhosis Thrombocytopenia Varicose vein of leg Colon polyp Removed 1993, 2007, 2012, 2018, 2021 Skin cancer of face Dyslipidemia Dry eyes, bilateral GERD (gastroesophageal reflux disease) Lumbar degenerative disc disease Urinary incontinence Osteoarthritis Hypothyroidism Chronic sinusitis Hypertension DM type 2 (diabetes mellitus, type 2) Esophageal varices Cirrhosis Surgical History Surgical History H/O arthroscopic knee surgery History of cataract surgery S/P cholecystectomy Hx of appendectomy H/O sinus surgery Family History Family History Father Hypertension Mother Cerebrovascular accident Valvular heart disease Diabetes mellitus Hypertension Heart disease Daughter Breast cancer Diabetes mellitus Son Hypertension Sibling Diabetes mellitus Alcoholism Daughter Breast cancer Diabetes mellitus Hypertension Grandparent Alcoholism Diabetes mellitus Social History Social History Smoking status: Never smoker Alcohol intake: never Substance use: never Substance use type: does not use Do You Feel Safe in your Home?: Yes Lack of Transportation: No Lack of Food: Never True Current Housing: I Have Housing Concerned About Future Housing: No Difficulty Paying Gas/Electric Bills: No Difficulty Paying for Meds: No Currently Unemployed: No Education: Trade/Vocational Certificate Difficulty w/ Childcare or Family Care: No Living arrangements: with family Spiritual care concerns: No Meds Home Medications and Allergies Home Medications ?Medication ?Instructions ?Recorded ?Confirmed ?Type cyclosporine 0.05 % eye drops in a 0.05 % ophthalmic (eye) BID 09/04/19 07/04/25 History dropperette (Restasis) nadolol 40 mg tablet (Corgard) 40 mg PO DAILY 10/21/21 07/04/25 History ascorbic acid (vitamin C) 500 mg 500 mg PO DAILY 10/15/22 07/04/25 History capsule lecpmkjpjerx-Vf-uqgt-minerals 1 tablet PO DAILY #30 tabs 01/13/23 07/04/25 Rx mupirocin 2 % topical ointment 2 applic topical DAILY 03/20/24 06/29/25 History calcium 250 mg tablet 600 mg PO DAILY 06/16/24 07/04/25 History furosemide 20 mg tablet 20 mg PO QAM 08/28/24 07/04/25 History tamoxifen 20 mg tablet 20 mg PO DAILY 12/25/24 07/04/25 History losartan 25 mg tablet See Rx Instructions .Route 01/31/25 07/04/25 Rx .COMPLEX #90 tabs levothyroxine 100 mcg tablet 100 mcg PO DAILY #90 tabs 03/06/25 07/04/25 Rx ferrous sulfate 325 mg (65 mg See Rx Instructions .Route 03/08/25 07/04/25 Rx iron) tablet .COMPLEX #90 tabs omeprazole 20 mg capsule,delayed See Rx Instructions .Route 03/16/25 07/04/25 Rx release .COMPLEX #30 caps losartan 50 mg tablet See Rx Instructions .Route 06/08/25 07/04/25 Rx .COMPLEX #90 tabs Allergies Allergy/AdvReac Type Severity Reaction Status Date / Time codeine Allergy Intermediate ABDOMINAL Verified 07/04/25 11:08 CRAMPING/DISTRESS acetaminophen (From [place]) AdvReac Severe Vomiting Verified 07/04/25 11:08 hydrocodone (From [place]) AdvReac Severe Vomiting Verified 07/04/25 11:08 adhesive tape AdvReac Unknown RASH, Verified 07/04/25 11:08 REDNESS Vital Signs Vital Signs - 24 hr 07/04/25 11:10 Temperature 97.9 F Pulse Rate 67 Respiratory Rate 18 Blood Pressure 146/54 H Pulse Oximetry 100 Oxygen Delivery Room Air Exam Const: General: cooperative and healthy appearing Resp: Effort & Inspection: normal respiratory effort and able to speak in complete sentences Auscultation: clear to auscultation bilaterally Cardio: Rate: regular rate Rhythm: regular rhythm GI: Inspection: normal to inspection GI Palp: No No hepatosplenomegaly present Auscultation: normal bowel sounds Rectal Exam: deferred Skin: General skin exam: normal color Psych: Appearance: grossly normal Mental Status: mental status grossly normal Assessment and Plan Assessment and plan (1) Cirrhosis: Code(s): K74.60 - Unspecified cirrhosis of liver Status: Acute Assessment and Plan: The patient is deemed a good candidate for the procedures. Consent signed. Will proceed. (2) Cirrhosis: Code(s): K74.60 - Unspecified cirrhosis of liver Status: Acute
--- NOTE | 2025-07-04 12:22 | SUR.OPER ---
EDG end @4573 COLONOSCOPY start @1459
[2025-07-04] MEDS: SIMETHICONE ORAL SUSPENSION 20 MG/0.3 ML 30 ML BOTTLE 0.6 ML IRRIGATION (12:38)
[2025-07-04 12:53] VITALS: BP 114/57; PULSE 78; RESP 16; O2SAT 100
--- NOTE | 2025-07-04 12:53 | S_PTH ---
PATIENT: Maggie Erazo LOC: [facility] U#:[id number] AGE/SX: 84/F ROOM: RE07/04/[address]: Antonio Zuniga MD : 1940 BED: DIS: 07/04/2025 SPEC #: [id number] RECD: 07/04/25 13:51 STATUS: NO RE #: [id number] JANA: 07/04/25 12:[address]: Antonio Zuniga DEPT: [facility] Surgical RECD BY: Sulma Wilson ENTERED: 07/04/25 13:52 SP TYPE: Surgical OTHR DR: Isreal Lin MD Tissues: A - Colon Polypectomy B - Colon Polypectomy C - Colon Polypectomy D - Colon Biopsy E - Colon Biopsy Procedures: Hematoxylin and Eosin Stain Gross and Microscopic Level 4
[2025-07-04 13:03] VITALS: BP 117/66; PULSE 74; RESP 15; O2SAT 99
[2025-07-04 13:13] VITALS: BP 118/60; PULSE 76; RESP 20; O2SAT 100
== END 2025-07-04 13:30 | disposition home or self-care (01) ==
PROVIDERS: PCP Family Medicine; Referring Provider Nurse Practitioner Family; Visit Provider Internal Medicine Gastroenterology
PROC: 0DJ08ZZ Inspection of Upper Intestinal Tract, Via Natural or Artificial Opening Endoscopic (ICD-10-PCS; CPT 45378; principal; 2025-07-04 12:30)
DX: K74.60 Unspecified cirrhosis of liver (principal); D12.2 Benign neoplasm of ascending colon; D12.5 Benign neoplasm of sigmoid colon; K63.5 Polyp of colon; K57.30 Diverticulosis of large intestine without perforation or abscess without bleeding; K21.9 Gastro-esophageal reflux disease without esophagitis; E03.9 Hypothyroidism, unspecified; I10 Essential (primary) hypertension; D69.6 Thrombocytopenia, unspecified; E78.5 Hyperlipidemia, unspecified; R32 Unspecified urinary incontinence; E11.9 Type 2 diabetes mellitus without complications; J32.9 Chronic sinusitis, unspecified; M51.369 Other intervertebral disc degeneration, lumbar region without mention of lumbar back pain or lower extremity pain; M19.90 Unspecified osteoarthritis, unspecified site; Z79.810 Long term (current) use of selective estrogen receptor modulators (SERMs); Z98.890 Other specified postprocedural states; Z90.49 Acquired absence of other specified parts of digestive tract; Z87.19 Personal history of other diseases of the digestive system; Z85.828 Personal history of other malignant neoplasm of skin; Z80.3 Family history of malignant neoplasm of breast; Z82.49 Family history of ischemic heart disease and other diseases of the circulatory system
CPT/HCPCS: 45385; 45380; 88305; J2003; J2704; J7120

== ENCOUNTER 2025-07-13 11:51 | Outpatient (CLI) | payer MEDICARE, BC, SELFPAY ==
--- OUTSIDE RECORDS SUMMARY | 2010-02-17 07:45 | XMS_ITS | Continuity of Care Document ---
Author Organization [facility] Address [address] [place] [address] Phone Care Team Providers Care Adjunct Phlebotomy Instructor Name Role Phone Nicola Mcwilliams Unavailable Unavailable [...] Diagnoses Date Provider Providers Copied on [facility], [address] [place] [address] [address], [place], [place], [address], [place] tel:[phone] SEC [facility] No Information 0-201 0 Poppy Petersen. Francisco Javier [facility] [place] [address], [place], [address], [place]. tel:[phone] Referring Provider: Francisco Javier [facility]blanc [facility] [address], [place], [address]. tel:[phone] [facility], [address] [place] [address] [address], [place], [place], [address], [place] tel:[phone] [address] [place] [facility] No Information Jul-0 5-200 9 Poppy Edestuardo. [address] [facility] , [address], [place], [address], [place]. tel:[phone] [facility], [address], [place], [place], [address], tel:[phone] SEC [facility] No Information Sep-1 2-200 8 Doiterence Petersen. [address] [facility] [place] , [address], [place], [address], [place]. tel:[phone] Office/outpat ient Visit, [facility], [address], [place], [place], [address], [place] tel:[phone] SEC [facility] No Information Darell-2 5-200 7 Poppy Petersen. [address] [facility] , [address], [place], [address], [place]. tel:[phone] Family History Family Member Type Diagnosis Age At Onset No Information Payers Payer name Insurance type Covered green party ID Authoriza tion(s) Medicare [facility] [id number] [facility] [id number] Social History Type Description Quantity Date Captured [...]
--- OUTSIDE RECORDS SUMMARY | 2025-07-13 11:54 | XMS_ITS | Clinical Summary ---
Author Organization [facility] Melia Keenan Address [address] [place] [address] Care Team Providers Care Mechanical Maintenance Engineer Name Role Phone Unavailable Primary Care Provider Unavailabl e Allergies Active Allergy Reactions Criticality Noted Date Comments Adhesive Tape-Silicones Other (See Comments) 11/17/2021 Codeine Nausea and Vomiting,Shortness of Breath/Wheezing High 04/21/2012 Acute abd. pain Acute abd. pain, Acute abd. pain, Acute abd. pain, Acute abd. pain Diphenhydramine Hcl Hives High 03/16/2013 Ekhiims-Jpx-Sew Reductase Inhibitors Muscle Pain,Rash Medium 09/11/2019 Medications [...] Description 07/24/2025 2:00 PM CDT Office Visit [facility]cology [facility] Hematology - [place] [address] [place] [phone] Devin Mcintyre MD [address] [facility] [address] [place] [phone] Health Maintenance Due Date Last Done Comments DIABETES ANNUAL FOOT EXAM 1959 DIABETES MICROALBUMIN ANNUAL SCREEN 1959 LDL CHOLESTEROL ANNUAL 1959 PNEUMOCOCCAL VACCINE 50+ YEA RS (1 of 2 - PCV) 1960 Traditional Medicare (ACO) A nnual Wellness Visit 1960 ZOSTER VACCINE (1 of 2) 1991 [...] 09/19/2020 Insurance MEDICARE PART A AND B [facility]
--- OUTSIDE RECORDS SUMMARY | 2025-07-13 11:54 | XMS_ITS | Clinical Summary ---
Author Organization [facility] Address [address] [place] [address] Care Team Providers Care Revenue Inspector Name Role Phone Unknown, Provider Primary Care Provider Unavaila ble Source Comments [facility],non-owned Affiliates and Associated Physician Practices is amultiple site organization consisting of ambulatory clinics and hospital sitesin [place], [place], [place] and [place]. This disclosure is being madepursuant to the Care Everywhere program and may not contain all information available regarding this patient. Last updated 18.[facility] [employer] Allergies Active Allergy Reactions Criticality Noted Date [...] mouth once daily 90 tablet 5 Active furosemide (Lasix) 20 MG tablet Take 1 tablet by mouth once daily 90 tablet 1 5 Active spironolactone (Aldactone) 50 MG tablet Take 1 tablet by mouth once daily 90 tablet 1 5 Active Active Problems Problem Noted Date [...] Direct bili usually 0.5 Coronary arteriosclerosis in [place] artery 06/22 Overview (01/24/2025): Coronary artery disease involving [place] coronary artery of [place] heart without angina pectoris Osteoarthritis 04/06/2016 Overview (01/10/2018): Left hip 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 No biopsy. 09/20/12 [place] fatty liver, no focal lesions 05/08/13 EGD [...] focal lesions, no mention of ascites [facility] 01/13/21 [place]: nodular liver, no focal lesions, [...] PV, no mention of ascites 08/05/24 [place] ([place]): nodular liver, patent PV but flow suggests [...] Description 06/04/2025 Refill [facility] - [address] [phone] Humphrey Esquivel MD Refill Request 05/15/2025 Refill [facility] - [address] [phone] Humphrey Esquivel MD Refill Request 05/04/2025 Refill [facility] - [place] [address] [place] [phone] Humphrey Esquivel MD Refill Request from Last [...] on file Legal Sex Female 5:32 PM ORTHOPEDIC DENTIST Gender Identity Not on file Sexual Orientation Straight 08/11/2024 10 :05 AM CDT Last Filed Vital Signs Vital Sign Reading Time Taken Comments Blood Pressure 124/67 10/23/2024 10:52 AM ORTHOPEDIC DENTIST Pulse 56 10/23/2024 10:52 AM ORTHOPEDIC DENTIST Temperature 36.8 C (98.3 F) 10/23/2024 10:52 AM ORTHOPEDIC DENTIST Respiratory Rate 14 10/25/2023 9:34 AM ORTHOPEDIC DENTIST Oxygen Saturation 100% 10/23/2024 10:52 AM ORTHOPEDIC DENTIST Inhaled Oxygen Concentration - - Weight 66.7 kg (147 lb) 10/23/2024 10:52 AM ORTHOPEDIC DENTIST Height 160 cm (5' 3) 10/23/2024 10:52 AM ORTHOPEDIC DENTIST Body Mass Index 26.04 10/23/2024 10:52 AM ORTHOPEDIC DENTIST Plan of Treatment Upcoming Encounters Date Type Department Care Team (Late st Contact Info) Description 10/29/2025 10:00 AM ORTHOPEDIC DENTIST Office Visit [facility] - [place] [address] [place] [phone] Humphrey Esquivel MD [address] [place] [address] [place] [address] Health Maintenance Due Date Last Done Comments [...] 04/12/2023, 11/02/2022, Additional history exists COVID-19 VACCINE (2023- season) 2025 INFLUENZA VACCINE (#1) 2025 HIB [...] Management General On track( 025 10:41 AM ORTHOPEDIC DENTIST) Emre Broussard, RN Note: Expected end date: Interventions: Take all medications as prescribed Let your doctor know right away about any changes in your medications Make sure to request a refill of your medication at least one week prior to your last dose Procedures Procedure Name Priority Date/Time Associated Diagnosis Comments COMPREHENSIVE METABOLIC PANEL Routine 10/25/2023 11:42 AM ORTHOPEDIC DENTIST Liver cirrhosis secondary to [facility] MICROALB/CREAT RATIO URINE (EXTERNAL RESULT ENTRY) Routine 08/27/2020 HEMOGLOBIN A1C (EXTERNAL RESULT ENTRY) Routine 08/27/2020 from Last 3 Months or Most Recently Relevant to Health Maintenance Results * (ABNORMAL) COMPREHENSIVE METABOLIC PANEL (10/25/2023 11:42 AM ORTHOPEDIC DENTIST) BUN 12 7 - 26 mg/dL 10/25/2023 12:31 PM [facility] Creatinine 0.74 0.56 - 0.96 mg/dL 10/25/2023 12:31 PM [facility] Sodium 144 136 - 145 mmol/L 10/25/2023 12:31 PM [facility] Potassium 4.1 3.5 - 4.5 mmol/L 10/25/2023 12:31 PM [facility] Chloride 108(H) 98 - 107 mmol/L 10/25/2023 12:31 PM [facility] CO2 27 22 - 29 mmol/L 10/25/2023 12:31 PM [facility] Glucose 130(H) 70 - 115 mg/dL 10/25/2023 12:31 PM [facility] Calcium 8.9 8.4 - 10.2 mg/dL 10/25/2023 12:31 PM [facility] Protein Total 6.8 6.0 - 8.3 g/dL 10/25/2023 12:31 PM [facility] Albumin 3.4 3.4 - 5.0 g/dL 10/25/2023 12:31 PM [facility] Bilirubin Total 2.1(H) 0.2 - 1.2 mg/dL 10/25/2023 12:31 PM [facility] Alkaline Phosphatase 88 40 - 150 U/L 10/25/2023 12:31 PM [facility] ALT 33 5 - 55 U/L 10/25/2023 12:31 PM [facility] AST 46(H) 5 - 34 U/L 10/25/2023 12:31 PM [facility] Anion Gap 9 6 - 16 10/25/2023 12:31 PM [facility] BUN/Creatinine Ratio 16 7 - 23 10/25/2023 12:31 PM [facility] Osmolality Calculated 300(H) 275 - 295 mOsm/kg 10/25/2023 12:31 PM [facility] Albumin/Globulin Ratio 1.0(L) 1.1 - 2.3 10/25/2023 12:31 PM [facility] eGFR by CKD-EPI 81(L) >=90 mL/min/1.7 3 m2 10/25/2023 12:31 PM [facility] Blood BLOOD SPECIMEN / Unknown Lab Venipuncture / Unknown 10/25/2023 11:42 AM ORTHOPEDIC DENTIST 10/25/2023 12:01 PM [facility] Humphrey Esquivel MD LAB - CHEMISTRY OR DERABLES Final Result [facility] [address] [place] [phone], [facility] [phone] * MICROALB/CREAT RATIO URINE (EXTERNAL RESULT ENTRY) [...] Recently Relevant to Health Maintenance Insurance MEDICARE [facility] SELF PAY NO INSURANCE Member Subscriber Plan / Payer (Ef fective for All Dates) Name:Maggie Erazo Member ID:Not on file Relation to Subscriber:Not on file Name:MAGGIE ERAZO Subscriber ID:Not on file (Home) Address: [address] [place] [id number] Payer ID:Not on file Group ID:Not on file Type:Self Pay Address: [place], [place] MEDICARE Care Teams Revenue Inspector Relationship Specialty Start Date End Date Unknown, Provider PCP - General 10/23/24
--- OUTSIDE RECORDS SUMMARY | 2025-07-13 11:54 | XMS_ITS | Encounter Summary ---
Author Organization [facility] Healthcare Address [address] [place] [address] Care Team Providers Care Investor Relations Coordinator Name Role Phone Karin Cordoba NP Primary Care Provider [phone] Isreal Lin MD Primary Care Provider [phone] Encounter Details Date Type Department Care Team (Late st Contact Info) Description 12/21/2017 Orders Only [facility] [place] Information Management [address] [place] [id number] Scanning, Provider Social History Tobacco Use Types Packs/Day Years Used Date Smoking Tobacco: Never Smokeless Tobacco: Never Alcohol Use Standard Drinks/Week Comments No 0 (1 standard drink = 0.6 oz pur e alcohol) Comments Unknown Sex and Gender Information Value Date Recorded Sex Assigned at Not on file Legal Sex Female 3:37 AM 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
--- OUTSIDE RECORDS SUMMARY | 2025-07-13 11:54 | XMS_ITS | Encounter Summary ---
Author Organization [facility] Address [address] [facility] [place] [address] Care Team Providers Care Director Of Neighborhood Service Center Name Role Phone Riley Isreal Primary Care Provider [phone] Unknown, Provider Primary Care Provider Unavaila ble Encounter Details Date Type Department Care Team (Late st Contact Info) Description 09/13/2024 Lab Requisition [facility] Lab [address] [place] [phone] Darcie Hernandez DO [address] [facility] [address] [place] [address] Social History Tobacco Use Types Packs/Day Years Used Date Smoking Tobacco: Never Smokeless Tobacco: Never Alcohol Use Standard Drinks/Week Comments No 0 (1 standard drink = 0.6 oz pur e alcohol) Comments Unknown Sex and Gender Information Value Date Recorded Sex Assigned at Not on file Legal Sex Female 5:32 PM RETANNER Gender Identity Not on file Sexual Orientation Straight 08/11/2024 10 :05 AM CDT documented as of this encounter Plan of Treatment Upcoming Encounters Date Type Department Care Team (Late st Contact Info) Description 10/29/2025 10:00 AM RETANNER Office Visit [facility] - GI [address] [place] [phone] NeuHumphrey Carmona MD [address] [place] [address] documented as of this encounter Goals Goal Patient Goal Type Associated Problems Recent Progress Patient-Stated? Author Medication Management General On track( 025 10:41 AM RETANNER) Emre Broussard, RN Note: Expected end date: Interventions: Take all medications as prescribed Let your doctor know right away about any changes in your medications Make sure to request a refill of your medication at least one week prior to your last dose documented as of this encounter Procedures Procedure Name Priority Date/Time Associated Diagnosis Comments DERMATOPATHOLOGY Routine 09/13/2024 9:03 AM RETANNER documented in this encounter Results * DERMATOPATHOLOGY (09/13/2024 9:03 AM RETANNER) Case Report Dermatopathology Report Case: [id number] Authorizing Provider: Darcie Hernandez DO Collected: 09/13/2024 09:03 AM Ordering Location: [facility] - Received: 09/13/2024 04:19 PM DermPath Lab Pathologist: Any Brown MD Specimen: Skin, right superior shoulder 4 4:05 PM [facility] Final Diagnosis Specimen A. SKIN, right superior shoulder: BENIGN VERRUCOUS KERATOSIS, INFLAMED (L82.1) 4 4:05 PM [facility]MAT[facility] at [address] [facility] Clinical History R/O NMSC 4 4:05 PM [facility] Gross Description Specimen A: Received is one formalin filled container labeled with the patient's name and designated right superior shoulder. The specimen consists of a shave biopsy measuring 4x4x4 mm. Jar 0. 4:05 PM [facility]ERMAT[facility] Microscopic Description Specimen A. SKIN, right superior shoulder: Sections show hyperkeratosis, papillomatosis, hypergranulosis, and acanthosis. Inflammatory cells are present within the dermis. These histological findings can be seen in a verruca vulgaris or a seborrheic keratosis. 4 4:05 PM [facility]ER[facility] Disclaimer An external and internal positive and negative controls are appropriate for the histochemical, immunohistochemical and immunofluorescence stain(s) in this case (if any), except where stated explicitly. The performance characteristics of the stain(s) cited in this report were developed and its performance characteristic determined by the Dermatopathology Laboratory at [facility], directed by Dr. Javier Carias. These tests need not be, and therefore are not, approved by the [place] Food and Drug Administration. The tests are used for clinical purposes. Billing Codes Specimen Charges Stain Charges 49069 1 4 4:05 PM [facility] Embedded Images 4 4:05 PM [facility] Pathology/Cytolo gy TISSUE SPECIMEN FROM SKIN / Unknown 09/13/2024 9:03 AM RETANNER 09/13/2024 4:19 PM RETANNER Darcie Hernandez DO LAB - PATHOLOGY/CYTOLOGY ORDERABLES Final Result DERMATOPATHOLOGY LABORATORY [facility] - Department of Dermatology [facility] Medicine [address] [place] [address], [address] [phone] documented in this encounter Visit Diagnoses Not on filedocumented in this encounter Care Teams Director Of Neighborhood Service Center Relationship Specialty Start Date End Date Isreal Lin [address] [place], [place] [id number] PCP - General Internal Medicine 10/25/23 10/22/24 Unknown, Provider PCP - General 10/23/24 documented as of this encounter
--- OUTSIDE RECORDS SUMMARY | 2025-07-13 11:54 | XMS_ITS | Clinical Summary ---
Author Organization [facility] [address] [facility] [address] Address [address] [place] [address] Care Team Providers Care Programming Director Name Role Phone Isreal Lin MD Primary Care Provider [phone] Allergies Active Allergy Reactions Criticality Noted Date Comments Adhesive Tape-Silicones Hives Medium 03/16/2013 Codeine Other (See comments) Low 04/21/2012 Acute abd. pain Acute abd. pain, Loratadine-Pseudoephed rine Other (See comments) Low 11/17/2021 Oztgzbz-Rgi-Zbr Reductase Inhibitors Other (See comments) Low Medications ascorbic acid (ascorbic acid with darlene hips) 500 mg tablet take 1 by Oral route once 0 0 5 Active losartan (COZAAR) 50 mg tablet take 1 tablet by oral route every day 0 0 5 Active multivitamin tablet tablet take 1 tablet by oral route every day with food 0 0 5 Active calcium carbonate (CALCIUM 600) 1,500 mg (600 mg of elemental calcium) tablet take 1 by Oral route every day 0 0 5 Active cycloSPORINE (RESTASIS) 0.05 % ophthalmic emulsionIndicati ons:dry eye Administer 1 drop into both eyes 2 (two) times a day Active artificial tears,hypromello se, 0.3 % dropsIndications :Dry Eye Administer 1 drop into both eyes daily as needed Active omeprazole (PriLOSEC) 20 mg capsuleIndicatio ns:gerd Take 1 capsule (20 mg total) by mouth every morning Active nadoloL (CORGARD) 40 mg tabletIndication s:hypertension Take 1 tablet (40 mg total) by mouth every morning 0 Active aspirin 81 mg enteric coated tabletIndication s:prevention of thrombosis Take 1 tablet (81 mg total) by mouth every morning Active levothyroxine (SYNTHROID) 100 mcg tabletIndication s:hypothyroidism Take 1 tablet (100 mcg total) by mouth early childhood education instructor before breakfast 1 Active ferrous sulfate 325 mg (65 mg of elemental iron) tabletIndication s:Iron Deficiency Anemia Take 1 tablet (65 mg of elemental iron total) by mouth every other day In AM 3 Active losartan (COZAAR) 25 mg tabletIndication s:hypertension Take 1 tablet (25 mg total) by mouth nightly Active sod fonhm-umqgvk-sjx eez bottle 2,300-700 mg kit Administer 2 sprays into each nostril 2 (two) times a day 1 kit 4 Active nitrofurantoin monohydrate (MACROBID) 100 mg capsule 4 Active furosemide (LASIX) 20 mg tablet Take 1 tablet (20 mg total) by mouth daily Active spironolactone (ALDACTONE) 50 mg tablet Take 1 tablet (50 mg total) by mouth daily Active metFORMIN XR (GLUCOPHAGE XR) 500 mg 24 hr tablet Take 1 tablet (500 mg total) by mouth daily 4 Active tamoxifen (NOLVADEX) 20 mg tablet Take 1 tablet (20 mg total) by mouth daily 5 Active mupirocin (BACTROBAN) 2 % ointment DISSOLVE 1 INCH IN EACH NASAL IRRIGATION BOTTLE AND RINSE TWICE DAILY 22 g 5 Active Active Problems Problem Noted Date [...] unspecified hepatic cirrhosis type Coronary arteriosclerosis in [place] artery 06/22 Overview (01/21/2017): Coronary artery disease involving [place] coronary artery of [place] heart without angina pectoris Mixed diabetic hyperlipidemi [...] Description 05/30/2025 2:20 PM CDT Office Visit [facility] Medicine ENT [address] [facility] [address] [place] [phone] Samir Khan MD Chronic pansinusitis (Primary Dx); [...] thrombosis (HCC) 2013 Anemia 2021 Diabetes mellitus 2002 Cirrhosis (HCC) 2014 Delayed emergence from [...] on file Legal Sex 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 Gender Identity Female 01/28/2024 11:49 PM CDT Sexual Orientation Straight 08/12/2022 12 :04 PM CDT Obstetrics History Last Filed Vital Signs Vital Sign Reading Time Taken Comments Blood Pressure 157/59 02/08/2025 1:39 PM CDT Pulse 64 02/08/2025 1:39 PM CDT Temperature 36 C (96.8 F) 12/17/2023 1:10 PM PASTRY COOK APPRENTICE Respiratory Rate 16 05/31/2024 12:56 PM CDT [...] to Health Maintenance Insurance MEDICARE MEDICARE [facility] MEDICARE [facility] Address: [address] [address] [place] [address] [facility] Care Teams Programming Director Relationship Specialty Start Date End Date Isreal Lin MD PCP - General Family Practice 08/30/23
[2025-07-13 12:13] LABS: Hematocrit 28.0 % (37.0-47.0); Hemoglobin 9.2 g/dL (12.0-15.0); Immature Granulocyte Percent A 0.4 % (0-0.5); Immature Platelet Fraction Pct 7.0 % (0.9-11.2); Lymphocytes Absolute Auto 0.49 K/mm3 (0.9-3.2); Mean Corpuscular HGB Conc 32.9 g/dl (32-36); Mean Corpuscular Hemoglobin 33.9 pg (26-34); Mean Corpuscular Volume 103.3 fl (80-100); Nucleated Red Blood Cells Absolute Auto 0.000 K/mm3 (0.0-0.012); Nucleated Red Blood Cells Perc 0.0 % (0.0-0.2); Platelet Count Result 58 k/mm3 (150-375); Red Blood Count 2.71 M/mm3 (4.2-5.4); White Blood Count 2.8 K/mm3 (4.5-10.0)
[2025-07-13 13:48] LABS: Alanine Aminotransferase 23 U/L (6-35); Albumin Level 3.2 g/dL (3.5-5.1); Alkaline Phosphatase 57 U/L (38-126); Anion Gap 8 mmol/L (4-12); Aspartate Amino Transferase 50 U/L (14-36); Bilirubin,Total 1.9 mg/dL (0.2-1.3); Blood Urea Nitrogen 28 mg/dL (7-17); Calcium 8.2 mg/dL (8.4-10.2); Carbon Dioxide 21 mmol/L (22-30); Chloride 106 mmol/L (98-107); Estimated Glomerular Filt Rate 42; Glucose 162 mg/dL (65-110); Potassium 4.1 mmol/L (3.4-5.0); Sodium 135 mmol/L (137-145); Total Protein 6.3 g/dL (6.3-8.2)
== END 2025-07-13 11:52 | disposition home or self-care (01) ==
LOC: ANHLAB 11:52
PROVIDERS: PCP Family Medicine; Visit Provider Internal Medicine Hematology & Oncology
DX: C50.911 Malignant neoplasm of unspecified site of right female breast (principal); Z17.0 Estrogen receptor positive status [ER+]
CPT/HCPCS: 36415; 80053; 85025; 85055; 86300

== ENCOUNTER 2025-07-24 14:34 | Outpatient (CLI) | payer MEDICARE, BC, SELFPAY ==
--- OUTSIDE RECORDS SUMMARY | 2025-07-24 14:00 | XMS_ITS | Encounter Summary ---
Author Organization [facility] Address [address] [place] [address] Care Team Providers Care Him Director Name Role Phone Unavailable Primary Care Provider Unavailabl e Reason for Visit * Reason Comments Cancer Follow Up Encounter Details Date Type Department Care Team (Late st Contact Info) Description 07/24/2025 2:00 PM CDT Office Visit [facility] Oncology and Hematology - [place] [address] [facility] [address] [place] [address] Devin Mcintyre MD [address] [facility] [address] [place] [address] Chronic anemia (Primary Dx) Social History Tobacco Use Types [...] Sign Reading Time Taken Comments Blood Pressure 129/53 07/24/2025 2:01 PM CDT Pulse 68 07/24/2025 2:01 PM CDT Temperature 36.6 C (97.8 F) 07/24/2025 2:01 PM CDT Respiratory Rate 16 07/24/2025 2:01 PM CDT Oxygen Saturation 98% 07/24/2025 2:01 PM CDT Inhaled Oxygen Concentration - - Weight 71.3 kg (157 lb 3.2 oz) 07/24/2025 2:01 P M CDT Height - - Body Mass Index 27.85 05/25/2024 1:44 PM CDT documented in this encounter Progress Notes * Devin Mcintyre MD - 07/24/2025 2:08 PM CDT HEMATOLOGY / ONCOLOGY PROGRESS NOTE Patient Identification: Name: Maggie Erazo Age: 84 y.o. 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 CURRENT TREATMENT Tamoxifen 20 mg daily started November 13, 2024 TREATMENT HISTORY Status post right-sided lumpectomy done on June 28, 2024 Radiation therapy to the right breast completed September 29, 2024. SUBJECTIVE Patient came to the office for follow-up visit. She has been taking tamoxifen and tolerating it well. Denies any new lump bumps and lymphadenopathy. Denies any night sweats fevers and chills. She is been complaining of tiredness and fatigue and feeling cold all the time. No other new complaints. Review of system Constitutional: Patient did not mention fevers, sweats, weight and appetite stable, complain of tiredness and fatigue and feeling cold HEENT: Patient did not mention sinus congestion, [...] No lymphadenopathy Neuro: No obvious focal deficit Bilateral breast examination showed postoperative changes at the right breast without any masses and lymphadenopathy Exam as above PATH LABS Labs from February 01 showed creatinine 0.9 total bilirubin 1.7 WBC 2.9 hemoglobin 10.5 platelets 61,000 CA 15-3 18 Labs from July 13 showed WBC 2.8 hemoglobin 9.2 platelet 58,000 creatinine 1.2 GFR 42 bilirubin 1.9 CA 15-3 22.1 Assessment: Plan: There are no active problems to display for this patient. T1 [...] carcinoma 0.5 cm with negative margins. Patient completed radiation therapy treatment to the right breast on September 29, 2024. There is no evidence of relapse or disease on my examination. Labs including tumor marker stable. Continue tamoxifen that she has been tolerating well. Repeat bilateral mammogram will be done in January 2026. Multifactorial anemia. This is secondary to liver cirrhosis and renal insufficiency. Patient is already taking iron once a day. Will check iron studies and B12 level. I also discussed using Procrit for anemia of renal insufficiency. I will call her next week to discuss labs. 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 Stable. Liver cirrhosis. Patient will follow-up with the senior oracle soa developer. Osteopenia. Patient is on vitamin D. Hypertension. Stable. Type 2 diabetes. This has been managed by the primary care physician. Phone visit in 1 week and follow-up with labs in 3 months 07/24/2025 Devin Mcintyre MD documented in this encounter Plan of Treatment Upcoming Encounters Date Type Department Care Team (Late st Contact Info) Description 08/01/2025 4:30 PM CDT Telephone Check Up [facility] Oncology and Hematology - [place] [address] [facility] [address] [place] [address] Devin Mcintyre MD [address] [facility] [address] [place] [address] Scheduled Orders Name Type Priority Associated Diagnoses Orde r Schedule FERRITIN Lab Routine Chronic anemia Expected: 07/24/2025, Expires: 07/24/2026 IRON, TIBC, AND PERCENT SATURATION Lab Routine Chronic anemia Expected: 07/24/2025, Expires: 07/24/2026 METHYLMALONIC ACID Lab Routine Chronic anemia Expected: 07/24/2025, Expires: 07/24/2026 TRANSFERRIN RECEPTOR TFR SOLUBLE Lab Routine Chronic anemia Expected: 07/24/2025, Expires: 07/24/2026 VITAMIN B12 AND FOLATE Lab Routine Chronic anemia Expected: 07/24/2025, Expires: 07/24/2026 documented as of this encounter Visit Diagnoses Diagnosis Chronic anemia- Primary Anemia, unspecified documented in this encounter
--- OUTSIDE RECORDS SUMMARY | 2025-07-24 16:30 | XMS_ITS | Clinical Summary ---
Author Organization [facility] Address [address] [place] [address] Care Team Providers Care Drill Press Operator Helper Name Role Phone Unknown, Provider Primary Care Provider Unavaila ble Source Comments [facility],non-owned Affiliates and Associated Physician Practices is amultiple site organization consisting of ambulatory clinics and hospital sitesin [place], [place], [place] and [place]. This disclosure is being madepursuant to the Care Everywhere program and may not contain all information available regarding this patient. Last updated 18.[facility] Allergies Active Allergy Reactions Criticality Noted Date [...] tablet by mouth every 2 days Active furosemide (Lasix) 20 MG tablet Take 1 tablet by mouth once daily 90 tablet 1 5 Active spironolactone (Aldactone) 50 MG tablet Take 1 tablet by mouth once daily 90 tablet 1 5 Active carvedilol (Coreg) 6.25 MG tablet Take 1 (one) tablet by mouth 2 times daily 60 tablet 5 5 Active nadolol (Corgard) 40 MG tablet Take 1 tablet by mouth once daily 90 tablet 5 07/17/20 25 Discontinu ed([facility]) Active Problems Problem Noted Date Diagnosed Date Ascites 08/14/2024 Overview (07/24/2025): Noted to be increased on Aug 2024 US (but not reported on prior US) on no diuretics --> furosemide 20/d and spironolactone 50/d, BMP in 2 weeks 07/13/25 creat 1.23 Breast cancer 07/28/2024 Overview (07/28/2024): T1 N0 M0 stage IA invasive ductal carcinoma of the right breast status post ultrasound-guided biopsy of the right breast 6 o'clock position mass done on May 17, 2024 came back positive for invasive ductal carcinoma ER/HI positive HER2/duncan negative and Ki-67 of 10%. Status post right-sided lumpectomy done on June 28, 2024. Pathology showed invasive ductal carcinoma 0.5 cm with negative margins. 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 No biopsy. 09/20/12 US ([place]): fatty liver, no focal lesions 05/08/13 EGD [...] PV, no mention of ascites 08/05/24 US ([place]): nodular liver, patent PV but flow suggests [...] came back positive for invasive ductal carcinoma ER/HI positive HER2/duncan negative and Ki-67 of 10%. Status post right-sided lumpectomy done on June 28, 2024. Pathology showed invasive ductal carcinoma 0.5 cm with negative margins. Type 2 diabetes mellitus 04/21/2012 Resolved Problems Problem Noted Date Diagnosed Date Resolved Date H/O: CVA (cerebrovascular accident) 08/30/2023 01/24/2025 Encounters Date Type Department Care Team Description 07/17/2025 Orders Only [facility] - [address] [address] Humphrey Esquivel MD 06/04/2025 Refill [facility] - [address] [address] Humphrey Esquivel MD Refill Request 05/15/2025 Refill [facility] - [address] [address] Humphrey Esquivel MD Refill Request 05/04/2025 Refill [facility] - [address] [address] Humphrey Esquivel MD Refill Request from Last [...] on file Legal Sex Female 5:32 PM BODY STYLIST Gender Identity Not on file Sexual Orientation Straight 08/11/2024 10 :05 AM CDT Last Filed Vital Signs Vital Sign Reading Time Taken Comments Blood Pressure 124/67 10/23/2024 10:52 AM BODY STYLIST Pulse 56 10/23/2024 10:52 AM BODY STYLIST Temperature 36.8 C (98.3 F) 10/23/2024 10:52 AM BODY STYLIST Respiratory Rate 14 10/25/2023 9:34 AM BODY STYLIST Oxygen Saturation 100% 10/23/2024 10:52 AM BODY STYLIST Inhaled Oxygen Concentration - - Weight 66.7 kg (147 lb) 10/23/2024 10:52 AM BODY STYLIST Height 160 cm (5' 3) 10/23/2024 10:52 AM BODY STYLIST Body Mass Index 26.04 10/23/2024 10:52 AM BODY STYLIST Plan of Treatment Upcoming Encounters Date Type Department Care Team (Late st Contact Info) Description 10/29/2025 10:00 AM BODY STYLIST Office Visit [facility] [place] [address] [place] [address], [place] [address] Humphrey Esquivel MD [facility] [place] [address] Health Maintenance Due Date Last Done Comments [...] 04/12/2023, 11/02/2022, Additional history exists COVID-19 VACCINE (2024- season) 2025 09/29/2021, 02/05/2021, 01/14/2021 INFLUENZA VACCINE (#1) 2025 4, 08/19/2023, 08/02/2019, Additional history exists HIB VACCINE Aged Out [...] Management General On track( 025 10:41 AM [facility]) Emre Broussard RN Note: Expected end date: Interventions: Take all medications as prescribed Let your doctor know right away about any changes in your medications Make sure to request a refill of your medication at least one week prior to your last dose Procedures Procedure Name Priority Date/Time Associated Diagnosis Comments COMPREHENSIVE METABOLIC PANEL Routine 10/25/2023 11:42 AM BODY STYLIST Liver cirrhosis secondary to MASH MICROALB/CREAT RATIO URINE (EXTERNAL RESULT ENTRY) Routine 08/27/2020 HEMOGLOBIN A1C (EXTERNAL RESULT ENTRY) Routine 08/27/2020 from Last 3 Months or Most Recently Relevant to Health Maintenance Results * (ABNORMAL) COMPREHENSIVE METABOLIC PANEL (10/25/2023 11:42 AM [facility]) BUN 12 7 - 26 mg/dL 10/25/2023 12:31 PM [facility] Creatinine 0.74 0.56 - 0.96 mg/dL 10/25/2023 12:31 PM [facility] Sodium 144 136 - 145 mmol/L 10/25/2023 12:31 PM [facility] Potassium 4.1 3.5 - 4.5 mmol/L 10/25/2023 12:31 PM [facility] Chloride 108(H) 98 - 107 mmol/L 10/25/2023 12:31 PM [facility] CO2 27 22 - 29 mmol/L 10/25/2023 12:31 PM [facility] Glucose 130(H) 70 - 115 mg/dL 10/25/2023 12:31 PM [facility] Calcium 8.9 8.4 - 10.2 mg/dL 10/25/2023 12:31 PM [facility] Protein Total 6.8 6.0 - 8.3 g/dL 10/25/2023 12:31 PM [facility] Albumin 3.4 3.4 - 5.0 g/dL 10/25/2023 12:31 PM [facility] Bilirubin Total 2.1(H) 0.2 - 1.2 mg/dL 10/25/2023 12:31 PM [facility] Alkaline Phosphatase 88 40 - 150 U/L 10/25/2023 12:31 PM [facility] ALT 33 5 - 55 U/L 10/25/2023 12:31 PM [facility] AST 46(H) 5 - 34 U/L 10/25/2023 12:31 PM [facility] Anion Gap 9 6 - 16 10/25/2023 12:31 PM [facility] BUN/Creatinine Ratio 16 7 - 23 10/25/2023 12:31 PM [facility] Osmolality Calculated 300(H) 275 - 295 mOsm/kg 10/25/2023 12:31 PM [facility] Albumin/Globulin Ratio 1.0(L) 1.1 - 2.3 10/25/2023 12:31 PM [facility] eGFR by CKD-EPI 81(L) >=90 mL/min/1.7 3 m2 10/25/2023 12:31 PM [facility] Blood BLOOD SPECIMEN / Unknown Lab Venipuncture / Unknown 10/25/2023 11:42 AM BODY STYLIST 10/25/2023 12:01 PM BODY STYLIST us Humphrey Esquivel MD LAB - CHEMISTRY OR DERABLES Final Result [facility] [address] [place] [id number], [facility] [phone] * MICROALB/CREAT RATIO URINE (EXTERNAL RESULT ENTRY) [...] Recently Relevant to Health Maintenance Insurance MEDICARE [facility] SELF PAY NO INSURANCE Member Subscriber Plan / Payer (Ef fective for All Dates) Name:Maggie Erazo Member ID:Not on file Relation to Subscriber:Not on file Name:MAGGIE ERAZO Subscriber ID:Not on file (Home) Address: [address] [place] [id number] Payer ID:Not on file Group ID:Not on file Type:Self Pay Address: [place], [place] MEDICARE Care Teams Drill Press Operator Helper Relationship Specialty Start Date End Date Unknown, Provider PCP - General 10/23/24
--- OUTSIDE RECORDS SUMMARY | 2025-07-24 16:30 | XMS_ITS | Encounter Summary ---
Author Organization [facility] Address [address] [facility] [place] [address] Care Team Providers Care Cash Register Repairer Name Role Phone Riley Isreal Primary Care Provider Unknown, Provider Primary Care Provider Unavaila ble Encounter Details Date Type Department Care Team (Late st Contact Info) Description 09/13/2024 Lab Requisition [facility] - [facility] Lab [address] [place] [phone] Darcie Hernandez DO [address] [facility] [address] [place] [address] Social History Tobacco Use Types Packs/Day Years Used Date Smoking Tobacco: Never Smokeless Tobacco: Never Alcohol Use Standard Drinks/Week Comments No 0 (1 standard drink = 0.6 oz pur e alcohol) Comments Unknown Sex and Gender Information Value Date Recorded Sex Assigned at Not on file Legal Sex Female 5:32 PM GRAPHIC DESIGN TEACHER Gender Identity Not on file Sexual Orientation Straight 08/11/2024 10 :05 AM CDT documented as of this encounter Plan of Treatment Upcoming Encounters Date Type Department Care Team (Late st Contact Info) Description 10/29/2025 10:00 AM GRAPHIC DESIGN TEACHER Office Visit [facility] - [place] [address] [place] [phone] NeuHumphrey Carmona MD [address] [place] [address] documented as of this encounter Goals Goal Patient Goal Type Associated Problems Recent Progress Patient-Stated? Author Medication Management General On track( 025 10:41 AM GRAPHIC DESIGN TEACHER) Emre Broussard, RN Note: Expected end date: Interventions: Take all medications as prescribed Let your doctor know right away about any changes in your medications Make sure to request a refill of your medication at least one week prior to your last dose documented as of this encounter Procedures Procedure Name Priority Date/Time Associated Diagnosis Comments DERMATOPATHOLOGY Routine 09/13/2024 9:03 AM GRAPHIC DESIGN TEACHER documented in this encounter Results * DERMATOPATHOLOGY (09/13/2024 9:03 AM GRAPHIC DESIGN TEACHER) Case Report Dermatopathology Report Case: [id number] Authorizing Provider: Darcie Hernandez DO Collected: 09/13/2024 09:03 AM Ordering Location: [facility] - Received: 09/13/2024 04:19 PM [facility] Lab Pathologist: Any Brown MD Specimen: Skin, right superior shoulder 4 4:05 PM [facility] DERMATOPATHOLOGY LABORATORY Final Diagnosis Specimen A. SKIN, right superior shoulder: BENIGN VERRUCOUS KERATOSIS, INFLAMED (L82.1) 4 4:05 PM [facility] DERMATOPATHOLOGY LABORATORY at [address] [facility] Clinical History R/O NMSC 4 4:05 PM [facility] DERMATOPATHOLOGY LABORATORY Gross Description Specimen A: Received is one formalin filled container labeled with the patient's name and designated right superior shoulder. The specimen consists of a shave biopsy measuring 4x4x4 mm. Jar 0. 4:05 PM [facility] DERMATOPATHOLOGY LABORATORY Microscopic Description Specimen A. SKIN, right superior shoulder: Sections show hyperkeratosis, papillomatosis, hypergranulosis, and acanthosis. Inflammatory cells are present within the dermis. These histological findings can be seen in a verruca vulgaris or a seborrheic keratosis. 4 4:05 PM [facility] DERMATOPATHOLOGY LABORATORY Disclaimer An external and internal positive and negative controls are appropriate for the histochemical, immunohistochemical and immunofluorescence stain(s) in this case (if any), except where stated explicitly. The performance characteristics of the stain(s) cited in this report were developed and its performance characteristic determined by the Dermatopathology Laboratory at [facility], directed by Dr. Javier Carias. These tests need not be, and therefore are not, approved by the [place] Food and Drug Administration. The tests are used for clinical purposes. Billing Codes Specimen Charges Stain Charges 35197 1 4 4:05 PM [facility] DERMATOPATHOLOGY LABORATORY Embedded Images 4 4:05 PM [facility] DERMATOPATHOLOGY LABORATORY Pathology/Cytolo gy TISSUE SPECIMEN FROM SKIN / Unknown 09/13/2024 9:03 AM GRAPHIC DESIGN TEACHER 09/13/2024 4:19 PM GRAPHIC DESIGN TEACHER Darcie Hernandez DO LAB - PATHOLOGY/CYTOLOGY ORDERABLES Final Result DERMATOPATHOLOGY LABORATORY [facility] - Department of Dermatology [facility] Medicine [address] [place] [address], [address] [phone] documented in this encounter Visit Diagnoses Not on filedocumented in this encounter Care Teams Cash Register Repairer Relationship Specialty Start Date End Date Isreal Lin [address] [place], [place] [id number] PCP - General Internal Medicine 10/25/23 10/22/24 Unknown, Provider PCP - General 10/23/24 documented as of this encounter
--- OUTSIDE RECORDS SUMMARY | 2025-07-24 16:30 | XMS_ITS | Encounter Summary ---
Author Organization [facility] Address [address] [place] [address] Care Team Providers Care Ceramic Saw Tender Name Role Phone Unavailable Primary Care Provider Unavailabl e Encounter Details Date Type Department Care Team ([facility] Contact Info) Description 07/23/2025 Orders Only [facility] Oncology and Hematology [address] [place] [address] Devin Mcintyre MD [facility] [address] [place] [phone] Social History Tobacco Use Types Packs/Day [...] Department Care Team (Late Contact Info) Description 08/01/2025 4:30 PM CDT Telephone Check Up [facility] Oncology [facility] Hematology [address] [place] [address] Devin Mcintyre MD [facility] [employer] [address] [place] [phone] documented as of this encounter Procedures Procedure Name Priority Date/Time Associated Diagnosis Comments CHG CA 15 3 Routine 07/13/2025 12:49 PM CDT COMPREHENSIVE METABOLIC PANEL Routine 07/13/2025 11:42 AM CDT documented in this encounter Results * CHG CA 15 3 (07/13/2025 12:49 PM CDT) us Devin Mcintyre MD [facility] - LABORATORY Final Result * COMPREHENSIVE METABOLIC PANEL (07/13/2025 11:42 AM CDT) Blood us Devin Mcintyre MD CHEMISTRY ORDERABLES Final Resu lt documented in this encounter Visit Diagnoses Not on filedocumented in this encounter
--- OUTSIDE RECORDS SUMMARY | 2025-07-24 16:30 | XMS_ITS | Clinical Summary ---
Author Organization [facility] [address] Address [address] [place] [address] Care Team Providers Care Nurse Charge Rn Name Role Phone Isreal Lin MD Primary Care Provider [phone] Allergies Active Allergy Reactions Criticality Noted Date Comments Adhesive Tape-Silicones Hives Medium 03/16/2013 Codeine Other (See comments) Low 04/21/2012 Acute abd. pain Acute abd. pain, Loratadine-Pseudoephed rine Other (See comments) Low 11/17/2021 Rjbijdr-Bhj-Llq Reductase Inhibitors Other (See comments) Low Medications [...] 1 tablet (100 mcg total) by mouth card writer hand before breakfast 07/31/20 21 Active ferrous sulfate 325 mg (65 mg of elemental iron) tabletIndicati ons:Iron Deficiency Anemia Take 1 tablet (65 mg of elemental iron total) by mouth every other day In AM 07/26/20 23 Active losartan (COZAAR) 25 mg tabletIndicati ons:hypertensi on Take 1 tablet (25 mg total) by mouth nightly Active sod hboeh-idcwsk-r queez bottle 2,300-700 mg kit Administer 2 sprays into each nostril 2 (two) times a day 1 kit 12/18/19 24 Active nitrofurantoin monohydrate (MACROBID) 100 mg capsule 04/18/20 24 Active furosemide (LASIX) 20 mg tablet Take 1 tablet (20 mg total) by mouth daily Active spironolactone (ALDACTONE) 50 mg tablet Take 1 tablet (50 mg total) by mouth daily Active tamoxifen (NOLVADEX) 20 mg tablet Take 1 tablet (20 mg total) by mouth daily 11/13/19 25 Active mupirocin (BACTROBAN) 2 % ointment DISSOLVE 1 INCH IN EACH NASAL IRRIGATION BOTTLE AND RINSE TWICE DAILY 22 g 3 07/24/20 25 Active metFORMIN XR (GLUCOPHAGE XR) 500 mg 24 hr tablet Take 1 tablet (500 mg total) by mouth daily 08/31/20 24 025 Discontinued(No longer taking - Do not display on AVS) mupirocin (BACTROBAN) 2 % ointment DISSOLVE 1 INCH IN EACH NASAL IRRIGATION BOTTLE AND RINSE TWICE DAILY 22 g 06/08/20 25 025 Discontinued Active Problems Problem Noted [...] unspecified hepatic cirrhosis type Coronary arteriosclerosis in [place] artery 06/22 Overview (01/21/2017): Coronary artery disease involving [place] coronary artery of [place] heart without angina pectoris Mixed diabetic hyperlipidemi [...] Date Type Department Care Team Description 07/17/2025 1:30 PM CDT Office Visit [facility] Cardiology [address] [place] [address] Maxi Hutton MD Coronary artery calcification seen on CT scan (Primary Dx); Hypertension associated with diabetes (HCC); 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) (HCC); Nonrheumatic aortic valve stenosis 05/30/2025 2:20 PM CDT Office Visit [facility] ENT [address] [facility] [address] [place] [address] Samir Khan MD Chronic pansinusitis (Primary Dx); [...] rhinitis Sinusitis 2002 Dental disease 1999 Dizziness 2003 Nosebleed 2009 Tinnitus 2002 Headache 2003 Liver disease 2011 Deep vein thrombosis (HCC) 2014 Anemia 2021 Diabetes mellitus 2003 Cirrhosis (HCC) 2014 Delayed emergence from general [...] on file Legal Sex Female 3: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 Gender Identity Female 01/28/2024 11:49 PM CDT Sexual Orientation Straight 08/12/2022 12 :04 PM CDT Obstetrics History Last Filed Vital Signs Vital Sign Reading Time Taken Comments Blood Pressure 130/60 07/17/2025 1:32 PM CDT Pulse 66 07/17/2025 1:32 PM CDT Temperature 36 C (96.8 F) 12/17/2023 1:10 PM BOILERMAKER [employer] Respiratory Rate 16 05/31/2024 12:56 PM CDT Oxygen Saturation 99% 07/17/2025 1:32 PM CDT Inhaled Oxygen Concentration - - Weight 72.1 kg (159 lb) 07/17/2025 1:32 PM CDT Height 160 cm (5' 3) 07/17/2025 1:32 PM CDT Body Mass Index 28.17 07/17/2025 1:32 PM CDT Plan of Treatment Health Maintenance [...] Relevant to Health Maintenance Insurance MEDICARE MEDICARE [facility] FEDERAL MEDICARE [facility] [employer]AL Care Teams Nurse Charge Rn Relationship Specialty Start Date End Date Isreal Lin MD PCP - General Family Practice 08/30/23
--- OUTSIDE RECORDS SUMMARY | 2025-07-24 16:30 | XMS_ITS | Clinical Summary ---
Author Organization [facility] Melia Keenan Address [address] [place] [address] Care Team Providers Care Clinical Sciences Professor Name Role Phone Unavailable Primary Care Provider Unavailabl e Allergies Active Allergy Reactions Criticality Noted Date Comments Adhesive Tape-Silicones Other (See Comments) 11/17/2021 Codeine Nausea and Vomiting,Shortness of Breath/Wheezing High 04/21/2012 Acute abd. pain Acute abd. pain, Acute abd. pain, Acute abd. pain, Acute abd. pain Diphenhydramine Hcl Hives High 03/16/2013 Fyprrlk-Zrs-Gzv Reductase Inhibitors Muscle Pain,Rash Medium 09/11/2019 Medications [...] Encounters Date Type Department Care Team Description 07/24/2025 2:00 PM CDT Office Visit [facility] Oncology and Hematology [address] [place] [address] Devin Mcintyre MD Chronic anemia (Primary Dx) 07/23/2025 Orders Only [facility] Oncology and Hematology [address] [place] [address] Devin Mcintyre MD 07/17/2025 External Device Data ST[facility] ABSTRACTION Provider, Abstract 06/19/2025 External Device Data ST[facility] ABSTRACTION Provider, [...] oz) 07/24/2025 2:01 P M CDT Height 160 cm (5' 3) 05/25/2024 1:44 PM CDT Body Mass Index 27.85 05/25/2024 1:44 PM CDT Plan of Treatment Upcoming Encounters Date Type Department Care Team (Late st Contact Info) Description 08/01/2025 4:30 PM CDT Telephone Check Up [facility] Oncology and Hematology - [address] [facility] [address] [place] [address] Devin Mcintyre MD [address] [facility] [address] [place] [address] Health Maintenance Due Date Last [...] exists OSTEOPOROSIS SCREENING 08/02/2029 , 03/27/2022, 09/19/2020 Procedures Procedure Name Priority Date/Time Associated Diagnosis Comments CHG CA 15 3 Routine 07/13/2025 12:49 PM CDT COMPREHENSIVE METABOLIC PANEL Routine 07/13/2025 11:42 AM CDT from Last 3 Months Results * CHG CA 15 3 (07/13/2025 12:49 PM CDT) Devin Mcintyre MD [facility] - LABORATORY Final Result * COMPREHENSIVE METABOLIC PANEL (07/13/2025 11:42 AM CDT) Blood Devin Mcintyre MD CHEMISTRY ORDERABLES Final Resu lt from Last 3 Months Insurance MEDICARE PART A AND B [facility]
--- OUTSIDE RECORDS SUMMARY | 2025-07-24 16:30 | XMS_ITS | Encounter Summary ---
Author Organization [facility] Healthcare Address [address] [place] [address] Care Team Providers Care Surveillance Monitor Name Role Phone Karin Cordoba NP Primary Care Provider [phone] Isreal Lin MD Primary Care Provider [phone] Encounter Details Date Type Department Care Team (Late st Contact Info) Description 12/21/2017 Orders Only [facility] Health Information Management [address] [place] [address] Scanning, Provider Social History Tobacco Use Types Packs/Day Years Used Date Smoking Tobacco: Never Smokeless Tobacco: Never Alcohol Use Standard Drinks/Week Comments No 0 (1 standard drink = 0.6 oz pur e alcohol) Comments Unknown Sex and Gender Information Value Date Recorded Sex Assigned at Not on file 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
[2025-07-24 16:41] LABS: Iron 87 ug/dL (37-170)
[2025-07-24 16:51] LABS: Percent Iron Saturation 35 % (20-50)
[2025-07-24 17:17] LABS: Ferritin 157.00 ng/mL (11.1-264)
[2025-07-24 17:37] LABS: Vitamin B12 > 1000.0 pg/mL (239-931)
== END 2025-07-24 14:35 | disposition home or self-care (01) ==
PROVIDERS: PCP Family Medicine; Visit Provider Internal Medicine Hematology & Oncology
DX: D64.9 Anemia, unspecified (principal)
CPT/HCPCS: 36415; 82607; 82728; 82746; 83540; 83550; 83921; 84238

== ENCOUNTER 2025-07-26 08:54 | Outpatient (CLI) | payer MEDICARE, BC, SELFPAY ==
--- NOTE | ~2025-07-26 | US_ITS ---
US abdomen limited Indication: Nonalcoholic steatohepatitis (COSTA) Comparison: None Technique: Yanez-scale and color Doppler images were obtained. Findings: LIVER: The liver contours are nodular. Moderate increased echogenicity of the liver. . The liver measures 14.7 cm.Large amount of ascites. GALLBLADDER/BILIARY: Post cholecystectomy CBD 5.2 mm. Ravenel sign negative. PANCREAS: Pancreas limited by bowel gas. Right Kidney: Right kidney was not imaged. Impression: Cirrhotic disease of the liver with ascites Reviewed, dictated and finalized at location P. Impression: Cirrhotic disease of the liver with ascites
== END 2025-07-26 08:55 | disposition home or self-care (01) ==
LOC: MICIMG 08:56
PROVIDERS: PCP Family Medicine; Visit Provider Internal Medicine Gastroenterology
DX: K75.81 Nonalcoholic steatohepatitis (NASH) (principal); K74.69 Other cirrhosis of liver; R18.8 Other ascites
CPT/HCPCS: 76705

== ENCOUNTER 2025-08-05 00:29 | Emergency (ER) | payer MEDICARE, BC, SELFPAY ==
--- OUTSIDE RECORDS SUMMARY | 2010-02-17 07:45 | XMS_ITS | Continuity of Care Document ---
Author Organization [facility] Address [address] [place] [address] Phone Care Team Providers Care Cleaner Furniture Name Role Phone Nicola Mcwilliams Unavailable Unavailable [...] Diagnoses Date Provider Providers Copied on Encounter [facility], [address] [place] [address] [address], [place], [place], [address], [place] tel:[phone] SEC [facility] No Information 0-201 0 Poppy Petersen. Francisco Javier [facility] [place] [address], [place], [address], [place]. tel:[phone] Referring Provider: Francisco Javier [facility]blanc [facility] [address], [place], [address]. tel:[phone] [facility], [address] [place] [address] [address], [place], [place], [address], [place] tel:[phone] [facility] [place] [facility] No Information Jul-0 5-200 9 Poppy Edestuardo. [address] [facility] , [address], [place], [address], [place]. tel:[phone] [facility], [address], [place], [place], [address], tel:[phone] SEC [facility] No Information Sep-1 2-200 8 Doiterence Petersen. [address] [facility] [place] , [address], [place], [address], [place]. tel:[phone] Office/outpat ient Visit, [facility], [address], [place], [place], [address], [place] tel:[phone] SEC [facility] No Information Darell-2 5-200 7 Poppy Petersen. [address] [facility] , [address], [place], [address], [place]. tel:[phone] Family History Family Member Type Diagnosis Age At Onset No Information Payers Payer name Insurance type Covered green party ID Authoriza tion(s) Medicare [facility] [id number] [facility] [id number] Social History Type Description Quantity Date Captured [...]
[2025-08-05] VITALS (10 sets, daily range): BP systolic 112–137; BP diastolic 52–64; PULSE 67–81; RESP 11–18; TEMP 36.6; O2SAT 92–100
--- NOTE | ~2025-08-05 | XR_ITS ---
Examination: XR chest 2V Clinical History: cough, sob Comparison: 06/25/2025 Technique: PA and Lateral Findings: Cardiomediastinal silhouette normal size and configuration. Lungs clear. No acute bony abnormality. IMPRESSION: 1. No acute cardiopulmonary findings. Reviewed, dictated and finalized at location R.
--- OUTSIDE RECORDS SUMMARY | 2025-08-05 00:32 | XMS_ITS | Encounter Summary ---
Author Organization [facility] Address [address] [place] [address] Care Team Providers Care Carbonation Equipment Operator Name Role Phone Riley Isreal Primary Care Provider [phone] Unknown, Provider Primary Care Provider Unavaila ble Encounter Details Date Type Department Care Team (Late st Contact Info) Description 09/13/2024 Lab Requisition [facility] - DermPath Lab [address] [place] [phone] Darcie Hernandez DO [address] [facility] [address] [place] [address] Social History Tobacco Use Types Packs/Day Years Used Date Smoking Tobacco: Never Smokeless Tobacco: Never Alcohol Use Standard Drinks/Week Comments No 0 (1 standard drink = 0.6 oz pur e alcohol) Comments Unknown Sex and Gender Information Value Date Recorded Sex Assigned at Not on file Legal Sex Female 5:32 PM CROWNING INSPECTOR Gender Identity Not on file Sexual Orientation Straight 08/11/2024 10 :05 AM CDT documented as of this encounter Plan of Treatment Upcoming Encounters Date Type Department Care Team (Late st Contact Info) Description 10/29/2025 10:00 AM CROWNING INSPECTOR Office Visit [facility] - GI [address] [place] [phone] NeuHumphrey Carmona MD [address] [place] [address] documented as of this encounter Goals Goal Patient Goal Type Associated Problems Recent Progress Patient-Stated? Author Medication Management General On track( 025 10:41 AM CROWNING INSPECTOR) Emre Broussard, RN Note: Expected end date: Interventions: Take all medications as prescribed Let your doctor know right away about any changes in your medications Make sure to request a refill of your medication at least one week prior to your last dose documented as of this encounter Procedures Procedure Name Priority Date/Time Associated Diagnosis Comments DERMATOPATHOLOGY Routine 09/13/2024 9:03 AM CROWNING INSPECTOR documented in this encounter Results * DERMATOPATHOLOGY (09/13/2024 9:03 AM CROWNING INSPECTOR) Case Report Dermatopathology Report Case: [id number] Authorizing Provider: Darcie Hernandez DO Collected: 09/13/2024 09:03 AM Ordering Location: [facility] - Received: 09/13/2024 04:19 PM DermPath Lab Pathologist: Any Brown MD Specimen: Skin, right superior shoulder 4 4:05 PM [facility] DERMATOPATHOLOGY [facility]ORATORY Final Diagnosis Specimen A. SKIN, right superior shoulder: BENIGN VERRUCOUS KERATOSIS, INFLAMED (L82.1) 4 4:05 PM [facility] DERMATOPATHOLOGY LABORATORY at [address] [facility] Clinical History R/O NMSC 4 4:05 PM [facility] DERMATOPATHOLOGY [facility]ORATORY Gross Description Specimen A: Received is one formalin filled container labeled with the patient's name and designated right superior shoulder. The specimen consists of a shave biopsy measuring 4x4x4 mm. Jar 0. 4:05 PM [facility] DERMATOPATHOLOGY LABORATORY Microscopic Description Specimen A. SKIN, right superior shoulder: Sections show hyperkeratosis, papillomatosis, hypergranulosis, and acanthosis. Inflammatory cells are present within the dermis. These histological findings can be seen in a verruca vulgaris or a seborrheic keratosis. 4 4:05 PM [facility] DERMATOPATHOLOGY LABORATORY Disclaimer An external and internal positive and negative controls are appropriate for the histochemical, immunohistochemical and immunofluorescence stain(s) in this case (if any), except where stated explicitly. The performance characteristics of the stain(s) cited in this report were developed and its performance characteristic determined by the Dermatopathology Laboratory at [facility], directed by Dr. Javier Carias. These tests need not be, and therefore are not, approved by the [place] Food and Drug Administration. The tests are used for clinical purposes. Billing Codes Specimen Charges Stain Charges 52616 1 4 4:05 PM [facility] DERMATOPATHOLOGY LABORATORY Embedded Images 4 4:05 PM [facility] DERMATOPATHOLOGY LABORATORY Pathology/Cytolo gy TISSUE SPECIMEN FROM SKIN / Unknown 09/13/2024 9:03 AM CROWNING INSPECTOR 09/13/2024 4:19 PM CROWNING INSPECTOR Darcie Hernandez DO LAB - PATHOLOGY/CYTOLOGY ORDERABLES Final Result DERMATOPATHOLOGY LABORATORY [facility] - Department of Dermatology [facility] Medicine [address] [place] [address], [address] [phone] documented in this encounter Visit Diagnoses Not on filedocumented in this encounter Care Teams Carbonation Equipment Operator Relationship Specialty Start Date End Date Isreal Lin [address] [place], [place] [id number] PCP - General Internal Medicine 10/25/23 10/22/24 Unknown, Provider PCP - General 10/23/24 documented as of this encounter
--- OUTSIDE RECORDS SUMMARY | 2025-08-05 00:32 | XMS_ITS | Clinical Summary ---
Author Organization [facility] Address [address] [place] [address] Care Team Providers Care Sales Trader Name Role Phone Unknown, Provider Primary Care Provider Unavaila ble Source Comments [facility],non-owned Affiliates and Associated Physician Practices is amultiple site organization consisting of ambulatory clinics and hospital sitesin [place], [place], [place] and [place]. This disclosure is being madepursuant to the Care Everywhere program and may not contain all information available regarding this patient. Last updated 18.[facility] Allergies Active Allergy Reactions Criticality Noted [...] Direct bili usually 0.5 Coronary arteriosclerosis in [place] artery 06/22 Overview (01/24/2025): Coronary artery disease involving [place] coronary artery of [place] heart without angina pectoris Osteoarthritis 04/06/2016 Overview (01/10/2018): Left hip 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 No biopsy. 09/20/12 [place] ([place]): fatty liver, no focal lesions 05/08/13 EGD [...] no focal lesions, no mention of ascites [facility] 02/03/22 US: nodular liver, no focal [...] PV, no mention of ascites 08/05/24 [place] ([place]): nodular liver, patent PV but flow suggests [...] 07/17/2025 Orders Only [facility] - [address] [address] Humphrey Esquivel MD 06/04/2025 Refill [facility] - [address] [address] Humphrey Esquivel MD Refill Request 05/15/2025 Refill [facility] - [address] [address] Humphrey Esquivel MD Refill Request from Last [...] on file Legal Sex Female 5:32 PM CORRESPONDENCE SPECIALIST Gender Identity Not on file Sexual Orientation Straight 08/11/2024 10 :05 AM CDT Last Filed Vital Signs Vital Sign Reading Time Taken Comments Blood Pressure 124/67 10/23/2024 10:52 AM CORRESPONDENCE SPECIALIST Pulse 56 10/23/2024 10:52 AM CORRESPONDENCE SPECIALIST Temperature 36.8 C (98.3 F) 10/23/2024 10:52 AM CORRESPONDENCE SPECIALIST Respiratory Rate 14 10/25/2023 9:34 AM CORRESPONDENCE SPECIALIST Oxygen Saturation 100% 10/23/2024 10:52 AM CORRESPONDENCE SPECIALIST Inhaled Oxygen Concentration - - Weight 66.7 kg (147 lb) 10/23/2024 10:52 AM CORRESPONDENCE SPECIALIST Height 160 cm (5' 3) 10/23/2024 10:52 AM CORRESPONDENCE SPECIALIST Body Mass Index 26.04 10/23/2024 10:52 AM CORRESPONDENCE SPECIALIST Plan of Treatment Upcoming Encounters Date Type Department Care Team (Late Contact Info) Description 10/29/2025 10:00 AM CORRESPONDENCE SPECIALIST Office Visit [facility] - GI [address] [facility], [place] [phone] Humphrey Esquivel MD [address] [facility] [address]L [place] [address] Health Maintenance Due Date Last Done Comments [...] 09/29/2021, 02/05/2021, 01/14/2021 INFLUENZA VACCINE (#1) 2025 , 08/19/2023, 08/02/2019, Additional history exists HIB VACCINE [...] Management General On track( 025 10:41 AM [facility]) Emre Broussard, RN Note: Expected end date: Interventions: Take all medications as prescribed Let your doctor know right away about any changes in your medications Make sure to request a refill of your medication at least one week prior to your last dose Procedures Procedure Name Priority Date/Time Associated Diagnosis Comments IMAGING/RADIOLOGY/XRAY RESULTS ORDER 07/26/2025 COMPREHENSIVE METABOLIC PANEL Routine 10/25/2023 11:42 AM CORRESPONDENCE SPECIALIST Liver cirrhosis secondary to MASH MICROALB/CREAT RATIO URINE (EXTERNAL RESULT ENTRY) Routine 08/27/2020 HEMOGLOBIN A1C (EXTERNAL RESULT ENTRY) Routine 08/27/2020 from Last 3 Months or Most Recently Relevant to Health Maintenance Results * IMAGING/RADIOLOGY/XRAY RESULTS ORDER (07/26/2025) Anatomical Region Laterality Modality Other 07/26/2025 Narrative 07/26/2025 Ordered by an unspecified provider. us Scanned Document IMAGING Final Result * (ABNORMAL) COMPREHENSIVE METABOLIC PANEL (10/25/2023 11:42 AM [facility]) BUN 12 7 - 26 mg/dL 10/25/2023 12:31 PM [facility] Creatinine 0.74 0.56 - 0.96 mg/dL 10/25/2023 12:31 PM [facility] Sodium 144 136 - 145 mmol/L 10/25/2023 12:31 PM [facility] Potassium 4.1 3.5 - 4.5 mmol/L 10/25/2023 12:31 PM [facility] Chloride 108(H) 98 - 107 mmol/L 10/25/2023 12:31 PM [facility] CO2 27 22 - 29 mmol/L 10/25/2023 12:31 PM [facility] Glucose 130(H) 70 - 115 mg/dL 10/25/2023 12:31 PM [facility] Calcium 8.9 8.4 - 10.2 mg/dL 10/25/2023 12:31 PM [facility] Protein Total 6.8 6.0 - 8.3 g/dL 10/25/2023 12:31 PM [facility] Albumin 3.4 3.4 - 5.0 g/dL 10/25/2023 12:31 PM [facility] Bilirubin Total 2.1(H) 0.2 - 1.2 mg/dL 10/25/2023 12:31 PM [facility] Alkaline Phosphatase 88 40 - 150 U/L 10/25/2023 12:31 PM [facility] ALT 33 5 - 55 U/L 10/25/2023 12:31 PM [facility] AST 46(H) 5 - 34 U/L 10/25/2023 12:31 PM [facility] Anion Gap 9 6 - 16 10/25/2023 12:31 PM [facility] BUN/Creatinine Ratio 16 7 - 23 10/25/2023 12:31 PM [facility] Osmolality Calculated 300(H) 275 - 295 mOsm/kg 10/25/2023 12:31 PM [facility] Albumin/Globulin Ratio 1.0(L) 1.1 - 2.3 10/25/2023 12:31 PM [facility] eGFR by CKD-EPI 81(L) >=90 mL/min/1.7 3 m2 10/25/2023 12:31 PM [facility] Blood BLOOD SPECIMEN / Unknown Lab Venipuncture / Unknown 10/25/2023 11:42 AM CORRESPONDENCE SPECIALIST 10/25/2023 12:01 PM [facility] us Humphrey Esquivel MD LAB - CHEMISTRY OR DERABLES Final Result [facility] [address] [place] [address], [facility] [phone] * MICROALB/CREAT RATIO URINE (EXTERNAL RESULT ENTRY) [...] Health Maintenance Insurance [facility]ICARE [facility] SELF PAY NO INSURANCE Member Subscriber Plan / Payer (Ef fective for All Dates) Name:Maggie Erazo Member ID:Not on file Relation to Subscriber:Not on file Name:MAGGIE ERAZO Subscriber ID:Not on file (Home) Address: [address] [place] [id number] Payer ID:Not on file Group ID:Not on file Type:Self Pay Address: [place], [place] MEDICARE Care Teams Sales Trader Relationship Specialty Start Date End Date Unknown, Provider PCP - General 10/23/24
--- OUTSIDE RECORDS SUMMARY | 2025-08-05 00:32 | XMS_ITS | Encounter Summary ---
Author Organization [facility] [employer] [facility] Address [address] [place] [address] Care Team Providers Care Machinist Supervisor Name Role Phone Unavailable Primary Care Provider Unavailabl e Encounter Details Date Type Department Care Team ([facility] Contact Info) Description 07/31/2025 Orders Only [facility] Oncology and Hematology - [address] [place] [address] Devin Mcintyre MD [facility] [employer] [address] [place] [phone] Social History Tobacco Use Types Packs/Day [...] Department Care Team (Late Contact Info) Description 08/08/2025 4:30 PM CDT Telephone Check Up [facility] Oncology and Hematology - [address] [place] [address] Devin Mcintyre MD [address] [place] [phone] documented as of this encounter Procedures Procedure Name Priority Date/Time Associated Diagnosis Comments METHYLMALONIC ACID Routine 07/24/2025 4:27 PM CDT documented in this encounter Results * METHYLMALONIC ACID (07/24/2025 4:27 PM CDT) Blood Devin Mcintyre MD CHEMISTRY ORDERABLES Final Resu lt documented in this encounter Visit Diagnoses Not on filedocumented in this encounter
--- OUTSIDE RECORDS SUMMARY | 2025-08-05 00:32 | XMS_ITS | Encounter Summary ---
Author Organization [facility] Address [address] [place] [address] Care Team Providers Care Plaster Lather Name Role Phone Karin Cordoba NP Primary Care Provider [phone] Isreal Lin MD Primary Care Provider [phone] Encounter Details Date Type Department Care Team (Late st Contact Info) Description 12/21/2017 Orders Only [facility] Health Information Management [address] [place] [id number] Scanning, Provider Social History Tobacco Use Types Packs/Day Years Used Date Smoking Tobacco: Never Smokeless Tobacco: Never Alcohol Use Standard Drinks/Week Comments No 0 (1 standard drink = 0.6 oz pur e alcohol) Comments Unknown Sex and Gender Information Value Date Recorded Sex Assigned at Not on file Legal Sex Female 3:37 AM PLATE TAKE OUT WORKER Gender Identity Female 01/28/2024 11:49 PM [...] on filedocumented in this encounter Care Teams Plaster Lather Relationship Specialty Start Date End Date Karin Cordoba NP PCP - General Nurse Practitioner 08/20/17 08/29/23 Isreal Lin MD PCP - General Family Practice 08/30/23 documented as of this encounter
--- OUTSIDE RECORDS SUMMARY | 2025-08-05 00:32 | XMS_ITS | Clinical Summary ---
Author Organization [facility] Melia kelsie Keenan Address [address] [place] [address] Care Team Providers Care Humidifier Operator Name Role Phone Unavailable Primary Care Provider Unavailabl e Allergies Active Allergy Reactions Criticality Noted Date Comments Adhesive Tape-Silicones Other (See Comments) 11/17/2021 Codeine Nausea and Vomiting,Shortness of Breath/Wheezing High 04/21/2012 Acute abd. pain Acute abd. pain, Acute abd. pain, Acute abd. pain, Acute abd. pain Diphenhydramine Hcl Hives High 03/16/2013 Aryzzim-Dqx-Gnu Reductase Inhibitors Muscle Pain,Rash Medium 09/11/2019 Medications [...] Encounters Date Type Department Care Team Description 07/31/2025 External Device Data STL ABSTRACTION Provider, Abstract 07/31/2025 Orders Only [facility] Oncology and Hematology - [address] [place] [phone] Devin Mcintyre MD 07/27/2025 Orders Only [facility] Oncology and Hematology - [address] [place] [address] Devin Mcintyre MD 07/25/2025 Orders Only [facility] Oncology and Hematology - [address] [place] [address] Devin Mcintyre MD 07/24/2025 2:00 PM CDT Office Visit [facility] Oncology and Hematology - [address] [place] [address] Devin Mcintyre MD Chronic anemia (Primary Dx) 07/23/2025 Orders Only [facility] Oncology and Hematology - [address] [place] [address] Devin Mcintyre MD 07/17/2025 External Device Data [...] Care Team (Late st Contact Info) Description 08/08/2025 4:30 PM CDT Telephone Check Up [facility] Oncology and Hematology - [address] [facility] [address] [place] [address] Devin Mcintyre MD [address] [facility] [address] [place] [address] Health Maintenance Due Date Last [...] exists OSTEOPOROSIS SCREENING 08/02/2029 4, 03/27/2022, 09/19/2020 Procedures Procedure Name Priority Date/Time Associated Diagnosis Comments METHYLMALONIC ACID Routine 07/24/2025 4: 27 PM CDT CHG SOLUBLE TRANSFERRIN RECEPTOR Routine 07/24/2025 12:07 PM CDT IRON, TIBC, AND PERCENT SATURATION Routine 07/24/2025 7:56 AM CDT CHG CA 15 3 Routine 07/13/2025 12:49 PM CDT COMPREHENSIVE METABOLIC PANEL Routine 07/13/2025 11:42 AM CDT from Last 3 Months Results * METHYLMALONIC ACID (07/24/2025 4:27 PM CDT) Blood us Devin Mcintyre MD CHEMISTRY ORDERABLES Final Resu lt * CHG SOLUBLE TRANSFERRIN RECEPTOR (07/24/2025 12:07 PM CDT) us Devin Mcintyre MD [facility]G - LABORATORY Final Result * IRON, TIBC, AND PERCENT SATURATION (07/24/2025 7:56 AM CDT) Blood us Devin Mcintyre MD CHEMISTRY ORDERABLES Final Resu lt * CHG CA 15 3 (07/13/2025 12:49 PM CDT) us Devin Mcintyre MD [facility]G - LABORATORY Final Result * COMPREHENSIVE METABOLIC PANEL (07/13/2025 11:42 AM CDT) Blood us Devin Mcintyre MD CHEMISTRY ORDERABLES Final Resu lt from Last 3 Months Insurance MEDICARE PART A AND B [facility]
--- NOTE | 2025-08-05 01:09 | ECG_ITS ---
Test Date: 2025-08-05 01:35:32 Measurements Intervals [place] Rate: 69 P: 99 [place]: 166 QRS: 14 QRSD: 85 T: -5 QT: 382 QTc: 410 Interpretive Statements SINUS RHYTHM LOW QRS VOLTAGE IN PRECORDIAL LEADS POSSIBLE ANTERIOR MYOCARDIAL INFARCTION , PROBABLY OLD BORDERLINE ST-T WAVE ABNORMALITY- INF/LAT LEADS BASELINE ARTIFACT- I, II, AVR ABNORMAL ECG No previous ECG available for comparison Electronically Signed On 08-05-2025 08:08:52 CDT by Edwardo Kumar D.O.
--- NOTE | 2025-08-05 01:58 | ED.RECABL ---
HPI - Recheck/Abnormal Lab/Rx General Chief Complaint: Recheck/Abnormal Lab/Rx Stated Complaint: Lower bp, cough, not feeling well Time Seen by Provider: 08/05/25 01:09 Source: patient and family Mode of arrival: ambulatory Limitations: no limitations History of Present Illness HPI narrative: This is a 84-year-old female with history of breast cancer currently undergoing tamoxifen therapy, Cyr cirrhosis, diabetes, hypertension, GERD who presents to the ED for cough, chest tightness, brief episode of hypotension. Patient states that for the last 24 hours so, she has had a dry cough with some intermittent chest tightness worse with her coughs. She has also had some nasal congestion and throat congestion. Denies fevers, chills, shortness of breath. She states that earlier she was feeling a little off so her blood pressure was checked by her and was apparently in the 80s/50s briefly before self-resolving after a few checks. She reports that she had no symptoms during that time. No new medications. Related Data Home Medications ?Medication ?Instructions ?Recorded ?Confirmed ?Last Taken ?Type cyclosporine 0.05 % eye drops in a 0.05 % ophthalmic (eye) BID 09/04/19 07/04/25 07/03/25 History dropperette (Restasis) nadolol 40 mg tablet (Corgard) 40 mg PO DAILY 10/21/21 07/04/25 07/04/25 06:30 History ascorbic acid (vitamin C) 500 mg 500 mg PO DAILY 10/15/22 07/04/25 07/03/25 History capsule mupirocin 2 % topical ointment 2 applic topical DAILY 03/20/24 06/29/25 Unknown History calcium 250 mg tablet 600 mg PO DAILY 06/16/24 07/04/25 07/03/25 History furosemide 20 mg tablet 20 mg PO QAM 08/28/24 07/04/25 07/03/25 History tamoxifen 20 mg tablet 20 mg PO DAILY 12/25/24 07/04/25 07/03/25 History Allergies Allergy/AdvReac Type Severity Reaction Status Date / Time codeine Allergy Intermediate ABDOMINAL Verified 08/05/25 00:37 CRAMPING/DISTRESS acetaminophen (From [place]) AdvReac Severe Vomiting Verified 08/05/25 00:37 hydrocodone (From [place]) AdvReac Severe Vomiting Verified 08/05/25 00:37 adhesive tape AdvReac Unknown RASH, Verified 08/05/25 00:37 REDNESS Review of Systems Review of Systems: Gen.: Denies fevers or chills Eyes: Denies eye pain or visual change ENT: As per HPI Respiratory: As per HPI CV: As per HPI GI: Denies abdominal pain nausea, emesis or diarrhea denies burning, urgency, frequency or hematuria Musculoskeletal: Denies back pain or muscle pain Neuro: Denies numbness, tingling, weakness or focal weakness Skin: Denies rash Except as documented, all other systems reviewed and negative [facility] Past Medical History Medical History Parathyroid abnormality Removed 2002 Vaginal polyp Removed 1996 Appendix disease Gall bladder disease Acute sinusitis Chronic sinusitis Screening for osteoporosis Cirrhosis Thrombocytopenia Varicose vein of leg Colon polyp Removed 1993, 2007, 2012, 2018, 2021 Skin cancer of face Dyslipidemia Dry eyes, bilateral GERD (gastroesophageal reflux disease) Lumbar degenerative disc disease Urinary incontinence Osteoarthritis Hypothyroidism Chronic sinusitis Hypertension DM type 2 (diabetes mellitus, type 2) Esophageal varices Cirrhosis Surgical History Surgical History H/O arthroscopic knee surgery History of cataract surgery S/P cholecystectomy Hx of appendectomy H/O sinus surgery Family History Family History Father Hypertension Mother Cerebrovascular accident Valvular heart disease Diabetes mellitus Hypertension Heart disease Daughter Breast cancer Diabetes mellitus Son Hypertension Sibling Diabetes mellitus Alcoholism Daughter Breast cancer Diabetes mellitus Hypertension Grandparent Alcoholism Diabetes mellitus Social History Social History Smoking status: Never smoker Alcohol intake: never Substance use: never Substance use type: does not use Do You Feel Safe in your Home?: Yes Lack of Transportation: No Lack of Food: Never True Current Housing: I Have Housing Concerned About Future Housing: No Difficulty Paying Gas/Electric Bills: No Difficulty Paying for Meds: No Currently Unemployed: No Education: Trade/Vocational Certificate Difficulty w/ Childcare or Family Care: No Living arrangements: with family Additional living arrangements comments: with sp Spiritual care concerns: No Exam Narrative: APPEARANCE: No acute distress, nontoxic, resting in bed EYES: EOMI HEENT: Normocephalic, atraumatic, OMM RESPIRATORY: No respiratory distress Clear to auscultation bilaterally with no rhonchi wheezing or rales. CARDIOVASCULAR: Regular rate and rhythm without murmurs rubs or gallops. ABDOMINAL: Soft, nontender, moderate distension with positive fluid wave. Ventral hernia that is easily reducible. MUSCULOSKELETAl: Moves all extremities. No clubbing, cyanosis or edema. NEURO: Awake and alert. Following commands, speech normal, no focal deficits SKIN:: Warm, dry. No rashes lesions or abrasions PSYCHIATRIC: Normal affect/mood, Course Vital Signs Vital signs: Vital Signs Temperature 97.8 F 08/05/25 00:30 Pulse Rate 81 08/05/25 00:30 Respiratory Rate 18 08/05/25 00:30 Blood Pressure 137/60 08/05/25 00:30 Pulse Oximetry 92 08/05/25 00:30 Oxygen Delivery Room Air 08/05/25 00:30 Temperature 97.8 F 08/05/25 00:30 Pulse Rate 68 08/05/25 02:22 Respiratory Rate 15 08/05/25 02:22 Blood Pressure 114/64 08/05/25 02:22 Pulse Oximetry 100 08/05/25 02:22 Oxygen Delivery Room Air 08/05/25 00:30 Procedures Other Procedure Procedure 1: Other Procedure: PROCEDURE NOTE: IV Placement under Ultrasound Guidance Performed by: Hudson Suarez DO Indication: IV access required. Multiple attempts at peripheral IV placement were made by the nursing staff without success Procedure: The area was prepped in the usual fashion. The left basilic vein was cannulated with a 20 gauge catheter with use of dynamic ultrasound to identify the vein. The patient tolerated the procedure well. Complications: None MDM - Recheck/Abnormal Lab/Rx MDM Narrative Medical decision making narrative: 84-year-old female presenting for flu-like symptoms in brief episode of hypotension. On initial evaluation, patient was in no acute distress, afebrile, hemodynamically stable. Heart and lungs clear. Abdomen was distended with a positive fluid wave. There was a reducible ventral hernia. CBC revealed a stable pancytopenia. Creatinine was mildly elevated at 1.36. T bili elevated at 2.5, around baseline. Positive for COVID. Chest x-ray showed no acute process. EKG showed no concerning findings. Patient was deemed appropriate for discharge at this time. Patient was given a prescription for molnupiravir. Patient was advised to follow-up with their PCP in the next week for re-evaluation. Patient was agreeable to this plan. Given strict return precautions. Differential Diagnosis Differential diagnosis: Likely other (Pneumonia, viral syndrome, electrolyte abnormality, anemia, medication side effect, hypotension, air is) Medical Records Attestation: I reviewed the patient's medical records. Lab Data Attestation: I reviewed the patient's lab results. 08/05/25 02:21 08/05/25 02:20 Labs: Lab Results 08/05/25 08/05/25 08/05/25 Range/Units 01:32 02:20 02:21 WBC 3.1 L (4.5-10.0) K/mm3 RBC 2.67 L (4.2-5.4) M/mm3 Hgb 9.1 L (12.0-15.0) g/dL Hct 26.5 L (37.0-47.0) % MCV 99.3 (80-100) fl MCH 34.1 H (26-34) pg MCHC 34.3 (32-36) g/dl RDW 13.9 (11.5-14.5) % Plt Count 64 L (150-375) k/mm3 MPV 9.8 (7.4-10.4) fl Immature Gran % (Auto) 0.3 (0-0.5) % Neut % (Auto) 78.1 H (45.5-73.1) % Lymph % (Auto) 14.7 L (18.3-44.2) % Forrest % (Auto) 5.9 (2.6-8.5) % Eos % (Auto) 0.7 (0-4.4) % Baso % (Auto) 0.3 (0.2-1.2) % Lymph # (Auto) 0.45 L (0.9-3.2) K/mm3 Forrest # (Auto) 0.2 (0.1-0.6) K/mm3 Eos # (Auto) 0.0 (0-0.3) K/mm3 Baso # (Auto) 0.0 (0.0-0.1) K/mm3 Abs Immat Gran (auto) 0.01 (0.00-0.031) K/mm3 Absolute Neuts (auto) 2.4 (1.3-6.7) K/mm3 Absolute Nucleated RBC 0.000 (0.0-0.012) K/mm3 Nucleated RBC % 0.0 (0.0-0.2) % % Immature Plt Fraction 1.4 (0.9-11.2) % Sodium 133 L (137-145) mmol/L Potassium 4.4 (3.4-5.0) mmol/L Chloride 106 (98-107) mmol/L Carbon Dioxide 22 (22-30) mmol/L Anion Gap 5 (4-12) mmol/L BUN 28 H (7-17) mg/dL Creatinine 1.36 H (0.7-1.0) mg/dL Estim Creat Clear Calc 27 ml/min Estimated GFR 37 L (59 - ) Glucose 133 H (65-110) mg/dL Calcium 8.3 L (8.4-10.2) mg/dL Total Bilirubin 2.5 H (0.2-1.3) mg/dL AST 36 (14-36) U/L ALT 19 (6-35) U/L Alkaline Phosphatase 70 (38-126) U/L Total Protein 6.2 L (6.3-8.2) g/dL Albumin 3.1 L (3.5-5.1) g/dL Influenza A (RT-PCR) Negative (Negative) Influenza B (RT-PCR) Negative (Negative) RSV (RT-PCR) Negative (Negative) SARS-CoV-2 RNA (RT-PCR) Positive A (Negative) ABG Data Attestation: I personally reviewed and interpreted this ABG as follows: Imaging Data Attestation: I personally reviewed and interpreted this imaging study as follows: My impression: Chest x-ray: Normal cardiac silhouette, no consolidations, no pleural effusions, no pulmonary vascular congestion ECG Data EKG #1: Attestation: I personally reviewed and interpreted this ECG as follows: ECG completion date: 08/05/25 ECG completion time: 01:35 Interpretation: Normal sinus rhythm, normal axis, normal intervals, poor R-wave progression, no acute ST or T-wave changes Discharge Plan Discharge Clinical Impression: COVID-19 Patient Disposition: Home Condition: Stable Instructions: Antibiotic Form, COVID-19 (Coronavirus Disease 2019) (ED) Additional Instructions: Your found to be positive for COVID, this is likely the source of your symptoms. You are given a prescription for molnupiravir, take this as prescribed. Follow-up with your PCP in the next week for re-evaluation. Return to the ED for any new or worsening symptoms. Patient Language: Austrian Prescriptions: New molnupiravir 200 mg capsule 800 mg PO Q12H 5 Days Qty: 40 0RF No Action furosemide 20 mg tablet 20 mg PO QAM nadolol [Corgard] 40 mg tablet 40 mg PO DAILY mupirocin 2 % ointment 2 applic topical DAILY tamoxifen 20 mg tablet 20 mg PO DAILY cyclosporine [Restasis] 0.05 % dropperette 0.05 % ophthalmic (eye) BID ascorbic acid (vitamin C) 500 mg capsule 500 mg PO DAILY calcium 250 mg Tablet 600 mg PO DAILY ctsoekixwzlm-Uj-qpxe-minerals Tablet 1 tablet PO DAILY Qty: 30 1RF levothyroxine 100 mcg tablet 100 mcg PO DAILY Qty: 90 1RF ferrous sulfate 325 mg (65 mg iron) tablet See Rx Instructions .ROUTE .COMPLEX Qty: 90 0RF Dose Instruction: TAKE 1 TABLET BY MOUTH EVERY OTHER DAY Rx Instructions: TAKE 1 TABLET BY MOUTH EVERY OTHER DAY omeprazole 20 mg capsule,delayed release(DR/EC) See Rx Instructions .ROUTE .COMPLEX Qty: 30 5RF Dose Instruction: Take 1 capsule by mouth once daily Rx Instructions: Take 1 capsule by mouth once daily losartan 50 mg tablet See Rx Instructions .ROUTE .COMPLEX Qty: 90 1RF Dose Instruction: Take 1 tablet by mouth once daily Rx Instructions: Take 1 tablet by mouth once daily losartan 25 mg tablet See Rx Instructions .ROUTE .COMPLEX Qty: 90 0RF Dose Instruction: Take 1 tablet by mouth nightly Rx Instructions: Take 1 tablet by mouth nightly Follow-up/Referrals: Isreal Lin MD [Primary Care Provider, Family Practice]
[2025-08-05 02:14] LABS: Influenza A QL RT-PCR Negative (Negative); Influenza B QL RT-PCR Negative (Negative); RSV RNA, RT-PCR Negative (Negative); SARS-CoV-2 RNA PCR Positive (Negative)
[2025-08-05 02:28] LABS: Hematocrit 26.5 % (37.0-47.0); Hemoglobin 9.1 g/dL (12.0-15.0); Immature Granulocyte Percent A 0.3 % (0-0.5); Immature Platelet Fraction Pct 1.4 % (0.9-11.2); Lymphocytes Absolute Auto 0.45 K/mm3 (0.9-3.2); Mean Corpuscular HGB Conc 34.3 g/dl (32-36); Mean Corpuscular Hemoglobin 34.1 pg (26-34); Mean Corpuscular Volume 99.3 fl (80-100); Nucleated Red Blood Cells Absolute Auto 0.000 K/mm3 (0.0-0.012); Nucleated Red Blood Cells Perc 0.0 % (0.0-0.2); Platelet Count Result 64 k/mm3 (150-375); Red Blood Count 2.67 M/mm3 (4.2-5.4); White Blood Count 3.1 K/mm3 (4.5-10.0)
[2025-08-05 02:44] LABS: Alanine Aminotransferase 19 U/L (6-35); Albumin Level 3.1 g/dL (3.5-5.1); Alkaline Phosphatase 70 U/L (38-126); Anion Gap 5 mmol/L (4-12); Aspartate Amino Transferase 36 U/L (14-36); Bilirubin,Total 2.5 mg/dL (0.2-1.3); Blood Urea Nitrogen 28 mg/dL (7-17); Calcium 8.3 mg/dL (8.4-10.2); Carbon Dioxide 22 mmol/L (22-30); Chloride 106 mmol/L (98-107); Estimated CRCL calculation 27 ml/min; Estimated Glomerular Filt Rate 37; Glucose 133 mg/dL (65-110); Potassium 4.4 mmol/L (3.4-5.0); Sodium 133 mmol/L (137-145); Total Protein 6.2 g/dL (6.3-8.2)
== END 2025-08-05 03:56 | disposition home or self-care (01) ==
PROVIDERS: Physician Assistant; Emergency Provider Student in an Organized Health Care Education/Training Program; PCP Family Medicine
DX: U07.1 COVID-19 (principal); R94.31 Abnormal electrocardiogram [ECG] [EKG]; Z85.3 Personal history of malignant neoplasm of breast; K75.81 Nonalcoholic steatohepatitis (NASH); E11.9 Type 2 diabetes mellitus without complications; I10 Essential (primary) hypertension; K21.9 Gastro-esophageal reflux disease without esophagitis; M19.90 Unspecified osteoarthritis, unspecified site
CPT/HCPCS: 36415; 71046; 80053; 85025; 85055; 87637; 93005; 99283

== ENCOUNTER 2025-09-07 09:18 | Outpatient (CLI) | payer MEDICARE, BC, SELFPAY ==
--- NOTE | ~2025-09-07 | XR_ITS ---
EXAMINATION: XR_RIBSBI_CR, 09/07/2025 9:23 SPEED BELT SANDER TENDER HISTORY: R07.89 - Other chest pain COMPARISON: No comparisons available. Findings: No acute fracture or malalignment. No significant degenerative changes. Soft tissues unremarkable. Impression: No acute fracture or malalignment. Reviewed, dictated and finalized at location P. D BELT SANDER TENDER Impression: No acute fracture or malalignment.
== END 2025-09-07 09:19 | disposition home or self-care (01) ==
LOC: MICIMG 09:19
PROVIDERS: PCP Family Medicine; Visit Provider Family Medicine
DX: R07.89 Other chest pain (principal)
CPT/HCPCS: 71110

== ENCOUNTER 2025-09-15 12:33 | Outpatient (CLI) | payer MEDICARE, BC, SELFPAY ==
[2025-09-15 13:12] LABS: Add Urine Microscopic? YES; Appearance Urine Turbid (Clear); Glucose Urine UA Negative (Negative); Leukocyte Esterase Ur 3+ LEU/UL (Negative); Need Manual Microscopic Reviewed; Nitrate Urine Negative (Negative); Specific Grav Ur 1.013 (1.001-1.035)
== END 2025-09-15 12:34 | disposition home or self-care (01) ==
LOC: ANHLAB 12:34
PROVIDERS: PCP Family Medicine; Visit Provider Family Medicine
DX: N39.0 Urinary tract infection, site not specified (principal)
CPT/HCPCS: 81001; 87086

== ENCOUNTER 2025-10-08 16:30 | Outpatient (CLI) | payer MEDICARE, BC, SELFPAY ==
--- OUTSIDE RECORDS SUMMARY | 2025-10-08 16:33 | XMS_ITS | Clinical Summary ---
Author Organization [facility] kelsie [facility] Address [address] [address] Care Team Providers Care Supervisor Tank Storage Name Role Phone Unavailable Primary Care Provider Unavailabl e Allergies Active Allergy Reactions Criticality Noted Date Comments Adhesive Tape-Silicones Other (See Comments) 11/17/2021 Codeine Nausea and Vomiting,Shortness of Breath/Wheezing High 04/21/2012 Acute abd. pain Acute abd. pain, Acute abd. pain, Acute abd. pain, Acute abd. pain Diphenhydramine Hcl Hives High 03/16/2013 Uxzaybo-Wqo-Tgn Reductase Inhibitors Muscle Pain,Rash Medium 09/11/2019 Medications [...] Encounters Date Type Department Care Team Description 10/02/2025 External Device Data STL ABSTRACTION Provider, Abstract 08/08/2025 4:30 PM CDT Telephone Check Up [facility] - [address] [place] [address] Devin Mcintyre MD Malignant neoplasm of right breast in female, estrogen receptor positive, unspecified site of breast (CMS/HCC) (Primary Dx) 07/31/2025 External Device Data STL ABSTRACTION Provider, Abstract 07/31/2025 Orders Only [facility] - [address] [place] [address] Devin Mcintyre MD 07/27/2025 Orders Only [facility] - [address] [place] [id number] Devin Mcintyre MD 07/25/2025 Orders Only [facility] - [address] [place] [id number] Devin Mcintyre MD 07/24/2025 2:00 PM CDT Office Visit [facility] - [address] [place] [address] Devin Mcintrye MD Chronic anemia (Primary Dx) 07/23/2025 Orders Only [facility] - [address] [place] [address] Devin Mcintyre MD 07/17/2025 External Device Data [...] Care Team (Late st Contact Info) Description 11/13/2025 11:15 AM AUCTION BLOCK CLERK Office Visit [facility] - [address] [facility] [address] [place] [address] Devin Mcintyre MD [address] [place] [address] Health Maintenance Due Date Last [...] Months Insurance MEDICARE PART A AND B [facility] FEDERAL
--- OUTSIDE RECORDS SUMMARY | 2025-10-08 16:33 | XMS_ITS | Encounter Summary ---
Author Organization [facility] Healthcare Address [address] [place] [address] Care Team Providers Care Director Personal Name Role Phone Karin Cordoba NP Primary Care Provider [phone] Isreal Lin MD Primary Care Provider [phone] Encounter Details Date Type Department Care Team (Late st Contact Info) Description 12/21/2017 Orders Only [facility] Information Management [address] [place] [id number] Scanning, Provider Social History Tobacco Use Types Packs/Day Years Used Date Smoking Tobacco: Never Smokeless Tobacco: Never Alcohol Use Standard Drinks/Week Comments No 0 (1 standard drink = 0.6 oz pur e alcohol) Comments Unknown Sex and Gender Information Value Date Recorded Sex Assigned at Not on file 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
--- OUTSIDE RECORDS SUMMARY | 2025-10-08 16:33 | XMS_ITS | Clinical Summary ---
Author Organization [facility] [address] Address [address] [place] [address] Care Team Providers Care Oceanographer Physical Name Role Phone Isreal Lin MD Primary Care Provider [phone] Allergies Active Allergy Reactions Criticality Noted Date Comments Adhesive Tape-Silicones Hives Medium 03/16/2013 Codeine Other (See comments) Low 04/21/2012 Acute abd. pain Acute abd. pain, Loratadine-Pseudoephed rine Other (See comments) Low 11/17/2021 Ygpmclq-Loe-Bzi Reductase Inhibitors Other (See comments) Low Medications [...] 5 Active cycloSPORINE (RESTASIS) 0.05 % ophthalmic emulsionIndicat [...] 0 Active aspirin 81 mg enteric coated tabletIndicatio ns:prevention of thrombosis Take 1 tablet (81 mg total) by mouth every morning Active levothyroxine (SYNTHROID) 100 mcg tabletIndicatio ns:hypothyroidi sm Take 1 tablet (100 mcg total) by mouth customer support analyst before breakfast 1 Active ferrous sulfate 325 mg (65 mg of elemental iron) tabletIndicatio ns:Iron Deficiency Anemia Take 1 tablet (65 mg of elemental iron total) by mouth every other day In AM 3 Active losartan (COZAAR) 25 mg tabletIndicatio ns:hypertension Take 1 tablet (25 mg total) by mouth nightly Active sod ppsja-kcbfyt-bs ueez bottle 2,300-700 mg kit Administer 2 [...] 5 Active mupirocin (BACTROBAN) 2 % ointment Apply to each nostril daily 22 g 3 5 Active mometasone 0.6 mg/10 mL solution Administer 10 mL (0.6 mg total) into each nostril daily Mix 2ml into 240ml nasal saline and perform nasal rinse 120 mL 11 5 Active mupirocin (BACTROBAN) 2 % ointment DISSOLVE 1 INCH IN EACH NASAL IRRIGATION BOTTLE AND RINSE TWICE DAILY 22 g 3 5 09/12/20 25 Discontin ued(Reord er) mometasone 0.6 mg/10 mL solution Administer 10 mL (0.6 mg total) into each nostril daily Mix 2ml into 240ml nasal saline and perform nasal rinse 120 mL 11 5 09/12/20 25 Discontin ued(Reord er) Active Problems Problem Noted Date Diagnosed Date [...] unspecified hepatic cirrhosis type Coronary arteriosclerosis in [place] artery 06/22 Overview (01/21/2017): Coronary artery disease involving [place] coronary artery of [place] heart without angina pectoris Mixed diabetic hyperlipidemi [...] Encounters Date Type Department Care Team Description 09/12/2025 1:40 PM HEALTH/SAFETY JOB TITLES Office Visit [facility] Medicine ENT [address] [address] [place] [phone] Samir Khna MD Chronic pansinusitis (Primary Dx); Nasal polyps 09/12/[address] 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); Nonrheumatic aortic valve stenosis from Last 3 Months Surgical History Surgery [...] 2002 Dental disease 1999 Dizziness 2003 Nosebleed 2010 Tinnitus 2003 Headache 2003 Liver disease 2011 Deep vein thrombosis (HCC) 2013 Anemia 2021 Diabetes mellitus 2003 Cirrhosis (HCC) [...] on file Legal Sex Female 3:37 AM HEALTH/SAFETY JOB TITLES Gender Identity Female 01/28/2024 11:49 PM CDT Sexual Orientation Straight 08/12/2022 12 :04 PM CDT Last Filed Vital Signs Vital Sign Reading Time Taken Comments Blood Pressure 130/60 07/17/2025 1:32 PM CDT Pulse 66 07/17/2025 1:32 PM CDT Temperature 36 C (96.8 F) 12/17/2023 1:10 PM HEALTH/SAFETY JOB TITLES Respiratory Rate 16 05/31/2024 12:56 PM CDT [...] to Health Maintenance Insurance MEDICARE MEDICARE [facility] FEDERAL MEDICARE [facility] [employer]AL Care Teams Oceanographer Physical Relationship Specialty Start Date End Date Isreal Lin MD PCP - General Family Practice 08/30/23
--- OUTSIDE RECORDS SUMMARY | 2025-10-08 16:33 | XMS_ITS | Encounter Summary ---
Author Organization [facility] Address [address] [place] [address] Care Team Providers Care Returns Supervisor Name Role Phone Riley Isreal Primary Care Provider [phone] Unknown, Provider Primary Care Provider Unavaila ble Encounter Details Date Type Department Care Team (Late st Contact Info) Description 09/13/2024 Lab Requisition [facility] - DermPath Lab [address] [place] [phone] Darcie Hernandez DO [address] [facility] [address] [place] [address] Social History Tobacco Use Types Packs/Day Years Used Date Smoking Tobacco: Never Smokeless Tobacco: Never Alcohol Use Standard Drinks/Week Comments No 0 (1 standard drink = 0.6 oz pur e alcohol) Comments Unknown Sex and Gender Information Value Date Recorded Sex Assigned at Not on file Legal Sex Female 5:32 PM [employer] APPR[employer]ISER Gender Identity Not on file Sexual Orientation Straight 08/11/2024 10 :05 AM CDT documented as of this encounter Plan of Treatment Upcoming Encounters Date Type Department Care Team (Late st Contact Info) Description 10/29/2025 10:00 AM [employer] APPRAISER Office Visit [facility] - GI [address] [place] [phone] NeuHumphrey Carmona MD [address] [place] [address] documented as of this encounter Goals Goal Patient Goal Type Associated Problems Recent Progress Patient-Stated? Author Medication Management General On track( 025 10:41 AM [employer]PRAISER) Emre Broussard, RN Note: Expected end date: Interventions: Take all medications as prescribed Let your doctor know right away about any changes in your medications Make sure to request a refill of your medication at least one week prior to your last dose documented as of this encounter Procedures Procedure Name Priority Date/Time Associated Diagnosis Comments DERMATOPATHOLOGY Routine 09/13/2024 9:03 AM [employer] AP[employer]ISER documented in this encounter Results * DERMATOPATHOLOGY (09/13/2024 9:03 AM REAL [employer] APPRAISER) Case Report Dermatopathology Report Case: [id number] Authorizing Provider: Darcie Hernandez DO Collected: 09/13/2024 09:03 AM Ordering Location: [facility] - Received: 09/13/2024 04:19 PM DermPath Lab Pathologist: Any Brown MD Specimen: Skin, right superior shoulder 4 4:05 PM [facility] DERMATOPATHOLOGY LABORATORY Final Diagnosis Specimen A. SKIN, right superior shoulder: BENIGN VERRUCOUS KERATOSIS, INFLAMED (L82.1) 4 4:05 PM [facility] DERMATOPATHOLOGY LABORATORY at [address] [facility] Clinical History R/O NMSC 4 4:05 PM [facility] DERMATOPATHOLOGY LABORATORY Gross Description Specimen A: Received is one formalin filled container labeled with the patient's name and designated right superior shoulder. The specimen consists of a shave biopsy measuring 4x4x4 mm. Jar 0. 4:05 PM [facility] DERMATOPATHOLOGY LABORATORY Microscopic Description Specimen A. SKIN, right superior shoulder: Sections show hyperkeratosis, papillomatosis, hypergranulosis, and acanthosis. Inflammatory cells are present within the dermis. These histological findings can be seen in a verruca vulgaris or a seborrheic keratosis. 4 4:05 PM [facility] DERMATOPATHOLOGY LABORATORY Disclaimer An external and internal positive and negative controls are appropriate for the histochemical, immunohistochemical and immunofluorescence stain(s) in this case (if any), except where stated explicitly. The performance characteristics of the stain(s) cited in this report were developed and its performance characteristic determined by the Dermatopathology Laboratory at [facility], directed by Dr. Javier Carias. These tests need not be, and therefore are not, approved by the [place] Food and Drug Administration. The tests are used for clinical purposes. Billing Codes Specimen Charges Stain Charges 18647 1 4 4:05 PM [facility] DERMATOPATHOLOGY LABORATORY Embedded Images 4 4:05 PM [facility] DERMATOPATHOLOGY LABORATORY Pathology/Cytolo gy TISSUE SPECIMEN FROM SKIN / Unknown 09/13/2024 9:03 AM [employer] APPRAISER 09/13/2024 4:19 PM [employer] APPRAISER Darcie Hernandez DO LAB - PATHOLOGY/CYTOLOGY ORDERABLES Final Result DERMATOPATHOLOGY LABORATORY [facility] - Department of Dermatology [facility] Medicine [address] [place] [address], [address] [phone] documented in this encounter Visit Diagnoses Not on filedocumented in this encounter Care Teams Returns Supervisor Relationship Specialty Start Date End Date Isreal Lin [address] [place], [place] [id number] PCP - General Internal Medicine 10/25/23 10/22/24 Unknown, Provider PCP - General 10/23/24 documented as of this encounter
--- OUTSIDE RECORDS SUMMARY | 2025-10-08 16:33 | XMS_ITS | Clinical Summary ---
Author Organization [facility] Address [address] [place] [address] Care Team Providers Care Lean Process Deployment Consultant Name Role Phone Unknown, Provider Primary Care Provider Unavaila ble Source Comments [facility],non-owned Affiliates and Associated Physician Practices is amultiple site organization consisting of ambulatory clinics and hospital sitesin [place], [place], [place] and [place]. This disclosure is being madepursuant to the Care Everywhere program and may not contain all information available regarding this patient. Last updated 18.[facility] Allergies Active Allergy Reactions Criticality Noted [...] Active furosemide (Lasix) 20 MG tablet Take 2 (two) tablets by mouth once daily 180 tablet 3 5 Active spironolactone (Aldactone) 50 MG tablet Take 2 (two) tablets by mouth once daily 180 tablet 3 5 Active nadolol (Corgard) 40 MG tablet Take 1 (one) tablet by mouth once daily 90 tablet 3 5 Active Active Problems Problem Noted Date Diagnosed Date Ascites 08/14/2024 Overview (08/14/2025): Noted to be increased on Aug 2024 US (but not reported on prior US) on no diuretics --> furosemide 20/d and spironolactone 50/d, BMP in 2 weeks 07/13/25 creat 1.23 08/14/25 doubled to furosemide 40/d and spironolactone 100/d, BMP in 2 weeks Breast cancer 07/28/2024 Overview (09/11/2025): T1 N0 M0 stage IA invasive ductal carcinoma of the right breast status post ultrasound-guided biopsy of the right breast 6 o'clock position mass done on May 17, 2024 came back positive for invasive ductal carcinoma ER/NM positive HER2/duncan negative and Ki-67 of 10%. Status post right-sided lumpectomy done on June 28, 2024. Pathology showed invasive ductal carcinoma 0.5 cm with negative margins. 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 No biopsy. 09/20/12 US ([place]): fatty liver, no focal lesions 05/08/13 EGD [...] PV, no mention of ascites 08/05/24 US ([place]): nodular liver, patent PV but flow suggests [...] came back positive for invasive ductal carcinoma ER/NM positive HER2/duncan negative and Ki-67 of 10%. Status post right-sided lumpectomy done on June 28, 2024. Pathology showed invasive ductal carcinoma 0.5 cm with negative margins. Type 2 diabetes mellitus 04/21/2012 Resolved Problems Problem Noted Date Diagnosed Date Resolved Date H/O: CVA (cerebrovascular accident) 08/30/2023 01/24/2025 Encounters Date Type Department Care Team Description 09/10/2025 11:20 AM [facility] - 09/10/2025 11:35 AM [facility] Surgery [facility] [address] [place] [address] Ana Weeks PA-C PARACENTESIS ABDOMEN (PERCUTANEOUS) 09/10/2025 10:51 AM [facility] - 09/10/2025 1:58 PM [facility] Hospital Encounter [facility] [address] [place] [address] Ana Weeks PA-C Surgery General Discharge Disposition: Home or Self Care 09/10/2025 Travel 09/05/2025 Orders Only [facility] [address] [place] [address], [place] [address] Humphrey Ward MD Ascites 08/30/2025 Orders Only [facility] [address] [place] [address], [place] [address] Humphrey Ward MD Liver cirrhosis secondary to MASH ; Ascites 08/14/2025 Orders Only [facility] [address] [place] [address], [place] [address] Humphrey Ward MD 07/17/2025 Orders Only [facility] [address] [place] [address], [place] [address] Humphrey Ward MD from Last 3 Months Immunizations Immunization Administration [...] = 0.6 oz pur e alcohol) Comments No Sex and Gender Information Value Date Recorded Sex Assigned at Not on file Legal Sex Female 5:32 PM [facility] Gender Identity Not on file Sexual Orientation Straight 08/11/2024 10 :05 AM CDT Last Filed Vital Signs Vital Sign Reading Time Taken Comments Blood Pressure 101/40 09/10/2025 1:34 PM [facility] Pulse 76 09/10/2025 1:34 PM [facility] Temperature 36.8 C (98.2 F) 09/10/2025 11:45 AM [facility] Respiratory Rate 19 09/10/2025 1:34 PM [facility] Oxygen Saturation 98% 09/10/2025 1:34 PM [facility] Inhaled Oxygen Concentration - - Weight 62.7 kg (138 lb 4.8 oz) 09/10/2025 1:55 P M [facility] Height 160 cm (5' 3) 09/10/2025 11:45 AM [facility] Body Mass Index 24.5 09/10/2025 11:45 AM [facility] Plan of Treatment Upcoming Encounters Date Type Department Care Team (Late st Contact Info) Description 10/29/2025 10:00 AM [facility] Office Visit [facility] [address] [place] [address], [place] [address] Humphrey Esquivel MD [address] [place] [address] [place] [address] Health Maintenance Due Date Last Done Comments BONE DENSITY TESTING 1940 MEDICARE AWV 12 MONTHS 1940 PNEUMOCOCCAL VACCINE 50+ (1 of 2 - PCV) 1960 ZOSTER VACCINE (1 of 2) 1991 HEPATITIS [...] DIABETES - URINE PROTEIN SCREENING 10/11/2024 08/27/2020 COVID-19 VACCINE ( season) 2025 INFLUENZA VACCINE (#1) 2025 DIABETES-SERUM CREATININE 09/10/20262024, 09/03/2025, 10/25/2023, Additional history exists HIB VACCINE Aged Out [...] Management General On track( 025 10:41 AM [facility]) Emre Broussard, RN Note: Expected end date: Interventions: Take all medications as prescribed Let your doctor know right away about any changes in your medications Make sure to request a refill of your medication at least one week prior to your last dose Procedures Procedure Name Priority Date/Time Associated Diagnosis Comments LARGE VOLUME PARACENTESIS Routine 09/10/2025 1:54 PM [facility] Ascites Portal hypertension (HCC) Other cirrhosis of liver (HCC) PT-INR Routine 09/10/2025 1:03 PM [facility] Ascites Portal hypertension (HCC) Other cirrhosis of liver (HCC) CBC W AUTO DIFFERENTIAL STAT 09/10/2025 1:03 PM [facility] Ascites Portal hypertension (HCC) Other cirrhosis of liver (HCC) COMPREHENSIVE METABOLIC PANEL STAT 09/10/2025 1:03 PM [facility] Ascites Portal hypertension (HCC) Other cirrhosis of liver (HCC) CYTOLOGY NON-BATH MIX OPERATOR PANEL (STL) Routine 09/10/2025 12:27 PM [facility] Ascites Portal hypertension (HCC) Other cirrhosis of liver (HCC) DIFFERENTIAL MANUAL FLUID STAT 09/10/2025 12:27 PM [facility] Ascites Portal hypertension (HCC) Other cirrhosis of liver (HCC) PROTEIN BODY FLUID Routine 09/10/2025 12 :27 PM [facility] Ascites Portal hypertension (HCC) Other cirrhosis of liver (HCC) LIPASE BODY FLUID STL Routine 09/10/2025 12:27 PM [facility] Ascites Portal hypertension (HCC) Other cirrhosis of liver (HCC) AMYLASE BODY FLUID Routine 09/10/2025 12 :27 PM [facility] Ascites Portal hypertension (HCC) Other cirrhosis of liver (HCC) ALBUMIN BODY FLUID Routine 09/10/2025 12 :27 PM [facility] Ascites Portal hypertension (HCC) Other cirrhosis of liver (HCC) CELL COUNT W DIFFERENTIAL FLUID STAT 09/10/2025 12:27 PM [facility] Ascites Portal hypertension (HCC) Other cirrhosis of liver (HCC) CULTURE FLUID+GRAM STAIN STAT 09/10/2025 12:27 PM [facility] Ascites Portal hypertension (HCC) Other cirrhosis of liver (HCC) NM ABDOM PARACENTESIS DX/THER W/IMAGING GUIDANCE 09/10/2025 11:53 AM [facility] Other ascites REF LAB-SPECIMEN STATUS REPORT Routine 09/03/2025 10:12 AM [facility] ALPHA FETOPROTEIN BLOOD TUMOR MARKER Routine 09/03/2025 10:12 AM [facility] Liver cirrhosis secondary to MASH Ascites PT-INR Routine 09/03/2025 10:12 AM [facility] Liver cirrhosis secondary to MASH Ascites COMPREHENSIVE METABOLIC PANEL Routine 09/03/2025 10:12 AM [facility] Liver cirrhosis secondary to MASH Ascites CBC W AUTO DIFFERENTIAL Routine 09/03/2025 10:12 AM [facility] Liver cirrhosis secondary to MASH Ascites IMAGING/RADIOLOGY/XRA Y RESULTS ORDER 07/26/2025 MICROALB/CREAT RATIO URINE (EXTERNAL RESULT ENTRY) Routine 08/27/2020 HEMOGLOBIN A1C (EXTERNAL RESULT ENTRY) Routine 08/27/2020 from Last 3 Months or Most Recently Relevant to Health Maintenance Results * Large Volume Paracentesis (09/10/2025 1:54 PM [facility]) Report Endoscopy POC Endoscopy Department Report _ Patient Name: Maggie Erazo Procedure Date: 09/10/2025 1:54 PM Date of : 1940 Classification: Outpatient Gender: Female Ethnicity: Not or Race: White _ Providers: Ana Weeks PA-C, Alpesh Guo MD Referring MD: Procedure: Paracentesis (Repeat) Indications: Ascites, Diagnostic to rule out peritonitis, Cirrhosis, Portal hypertension, MASH Medications: 1% Lidocaine 10 mL SubQ Description of Procedure: After obtaining informed consent, the procedure was performed. Throughout the procedure, the patient's blood pressure, pulse, and oxygen saturations were monitored continuously. The paracentesis was accomplished without difficulty. The patient tolerated the procedure well. Findings: Prior to the procedure, the abdomen was examined and demonstrated moderate distention with ascites and a fluid wave to be present. With the patient in a supine with head elevated position, the procedure site was sterilely prepped using chloraprep and draped in the usual fashion. 10 mL of 1% lidocaine was infiltrated into the skin and subcutaneous tissues. Using a left lower quadrant approach, a small stab incision was made with a disposable blade and a 5 inch 12 gauge paracentesis needle and cannula system was inserted into the peritoneal cavity under ultrasound guidance. Aspiration demonstrated no blood and good return of peritoneal fluid. One pass was made. The trocar was then removed leaving the catheter in place. 5.5 liters of clear, yellow fluid was withdrawn using a vacuum bottle. Fluid was sent for cell count and differential and culture and sensitivities. The incision site was closed with exofin and tegaderm. 150 mL of 25% Albumin was administered after the procedure to treat the patient for underlying renal failure. Estimated Blood Loss: Estimated blood loss: none. Complications: No immediate complications. Impression: - Paracentesis successfully performed. - Test results pending. Recommendation: - Discharge patient to home (ambulatory). - Return to liver clinic as previously scheduled. - Repeat paracentesis PRN for therapeutic purposes. Attending Participation: I was present for the estrada portions of this procedure and either I or my colleague was immediately available for all non-estrada portions of the procedure. Procedure Code(s): --- Professional --- 18931, Abdominal paracentesis (diagnostic or therapeutic); with imaging guidance Diagnosis Code(s): --- Professional --- R18.8, Other ascites K74.60, Unspecified cirrhosis of liver K76.6, Portal hypertension K75.81, Nonalcoholic steatohepatitis (COSTA) CPT copyright 2022 [employer]. All rights reserved. The codes documented in this report are preliminary and upon manager academic review may be revised to meet current compliance requirements. Ana Weeks PA-C 09/10/2025 1:59:13 PM This report has been signed electronically. Alpesh Guo MD Note Initiated On: 09/10/2025 1:54 PM Number of Addenda: [id number] [place] [address] PROVATION 09/10/2025 1:54 PM [facility] us Ana Weeks PA-C GI PROCEDURE ORDERABLES Edited Result - Final [facility] PROVATION * (ABNORMAL) PT-INR (09/10/2025 1:03 PM [facility]) Only the most recent of2 resultswithin the time period is included. Pathologist [facility] PT 17.3(H) 12.1 - 14.8 Seconds 09/10/2025 1:35 PM [facility] INR 1.4 See Comment 09/10/2025 1:35 PM [facility] Comment:The suggested therap eutic range for standard coumadin (warfarin) therapy is an INR of 2.0-3.0. For high-risk patients (Mechanical Mitral Valve Prosthesis, etc.), the suggested prophylactic therapeutic range is an INR of 2.5-3.5. Blood BLOOD SPECIMEN / Unknown Venipuncture / Unknown 09/10/2025 1:03 PM [facility] 09/10/2025 1:11 PM [facility] nAa Weeks PA-C LAB - COAGULATION ORDER LUIS Final Result Performing Organization Address City/[facility]/ZIP Co de Phone Number [facility] [address] [place] [address], [facility] [phone] * (ABNORMAL) CBC W AUTO DIFFERENTIAL (09/10/2025 1:03 PM [facility]) Only the most recent of2 resultswithin the time period is included. WBC 3.4(L) 4.0 - 10.7 x10E9/L 09/10/2025 1:28 PM [facility] RBC Count 2.62(L) 3.90 - 5.20 x10E12/L 09/10/2025 1:28 PM [facility] Hemoglobin 8.7(L) 11.9 - 15.8 g/dL 09/10/2025 1:28 PM [facility] Hematocrit 25.4(L) 34.8 - 46.1 % 09/10/2025 1:28 PM [facility] MCV 96.9 80.0 - 98.0 fL 09/10/2025 1:28 PM [facility] MCH 33.2 26.7 - 33.6 pg 09/10/2025 1:28 PM [facility] MCHC 34.3 31.7 - 36.3 g/dL 09/10/2025 1:28 PM [facility] RDW-CV 13.9 11.3 - 14.8 % 09/10/2025 1:28 PM [facility] Platelet Count 68(L) 150 - 420 x10E9/L 09/10/2025 1:28 PM [facility] MPV 10.7 7.8 - 11.4 fL 09/10/2025 1:28 PM [facility] Neutrophil % 62.0 41.0 - 74.0 % 09/10/2025 1:28 PM [facility] Lymphocyte % 26.9 17.0 - 47.0 % 09/10/2025 1:28 PM [facility] Monocyte % 9.0 3.0 - 11.0 % 09/10/2025 1:28 PM [facility] Eosinophil % 1.8 0.0 - 7.0 % 09/10/2025 1:28 PM [facility] Basophil % 0.0 0.0 - 1.6 % 09/10/2025 1:28 PM [facility] Immature Granulocytes % 0.3 0.0 - 1.0 % 09/10/2025 1:28 PM [facility] Neutrophil Absolute 2.08 1.60 - 7.50 x10E9/L 09/10/2025 1:28 PM [facility] Lymphocyte Absolute 0.90(L) 1.00 - 4.40 x10E9/L 09/10/2025 1:28 PM [facility] Monocyte Absolute 0.30 0.15 - 1.00 x10E9/L 09/10/2025 1:28 PM [facility] Eosinophil Absolute 0.06 0.00 - 0.60 x10E9/L 09/10/2025 1:28 PM [facility] Basophil Absolute 0.00 0.00 - 0.13 x10E9/L 09/10/2025 1:28 PM [facility] Blood BLOOD SPECIMEN / Unknown Venipuncture / Unknown 09/10/2025 1:03 PM [facility] 09/10/2025 1:11 PM [facility] Ana Weeks PA-C LAB - HEMATOLOGY ORDERA BLES Final Result [facility] [address] [place] [address], [facility] [phone] * (ABNORMAL) COMPREHENSIVE METABOLIC PANEL (09/10/2025 1:03 PM [facility]) Only the most recent of2 resultswithin the time period is included. BUN 37(H) 7 - 26 mg/dL 09/10/2025 1:43 PM [facility] Creatinine 2.06(H) 0.56 - 0.96 mg/dL 09/10/2025 1:43 PM [facility] Sodium 139 136 - 145 mmol/L 09/10/2025 1:43 PM [facility] Potassium 4.4 3.5 - 4.5 mmol/L 09/10/2025 1:43 PM [facility] Chloride 106 98 - 107 mmol/L 09/10/2025 1:43 PM [facility] CO2 21(L) 22 - 29 mmol/L 09/10/2025 1:43 PM [facility] Glucose 121(H) 70 - 99 mg/dL 09/10/2025 1:43 PM [facility] Calcium 8.7 8.4 - 10.2 mg/dL 09/10/2025 1:43 PM [facility] Protein Total 6.4 6.0 - 8.3 g/dL 09/10/2025 1:43 PM [facility] Albumin 2.7(L) 3.4 - 5.0 g/dL 09/10/2025 1:43 PM [facility] Bilirubin Total 1.8(H) 0.2 - 1.2 mg/dL 09/10/2025 1:43 PM [facility] Alkaline Phosphatase 57 40 - 150 U/L 09/10/2025 1:43 PM [facility] ALT 10 5 - 55 U/L 09/10/2025 1:43 PM [facility] AST 25 5 - 34 U/L 09/10/2025 1:43 PM [facility] Anion Gap 12 6 - 16 09/10/2025 1:43 PM [facility] BUN/Creatinine Ratio 18 7 - 23 09/10/2025 1:43 PM [facility] Osmolality Calculated 298(H) 275 - 295 mOsm/kg 09/10/2025 1:43 PM [facility] Albumin/Globulin Ratio 0.7(L) 1.1 - 2.3 09/10/2025 1:43 PM [facility] eGFR by CKD-EPI 23(L) >=90 mL/min/1.7 3 m2 09/10/2025 1:43 PM [facility] Comment:Estimated Glomerular Filtration Rate (eGFR) calculated using the CKD-EPI Creatinine Equation (2020), per the National Kidney Foundation and [employer] recommendations. Blood BLOOD SPECIMEN / Unknown Venipuncture / Unknown 09/10/2025 1:03 PM [facility] 09/10/2025 1:11 PM [facility] Ana Weeks PA-C LAB - CHEMISTRY ORDERAB LES Final Result [address] [address], [facility] [phone] * LIPASE BODY FLUID STL (09/10/2025 12:27 PM [facility]) Lipase Fluid 26 Not Established For Fluids Units/L 09/10/2025 1:07 PM [facility] Fluid Type Peritoneal Fluid 09/10/2025 1:07 PM [facility] Fluid PERITONEAL FLUID / Unknown Collection / Unknown 09/10/2025 12:27 PM [facility] 09/10/2025 12:42 PM [facility] Narrative [facility] - 09/10/2025 1:07 PM [facility] The analytical performance of this test has been independently validated by the laboratory. A reference range has not been established for this fluid. Comparison of this result with the concentration in blood, serum or plasma is recommended. Ana Whaley Fider-Janice PA-C LAB - BODY FLUID ORDERA BLES Final Result [facility] [address] [place] [address], [facility] [phone] * PROTEIN BODY FLUID (09/10/2025 12:27 PM [facility]) Protein Fluid 1.4 Not Established For Fluids g/dL 09/10/2025 1:09 PM [facility] Fluid Type Peritoneal Fluid 09/10/2025 1:09 PM [facility] Fluid PERITONEAL FLUID / Unknown Collection / Unknown 09/10/2025 12:27 PM [facility] 09/10/2025 12:42 PM [facility] Narrative [facility] - 09/10/2025 1:09 PM [facility] The analytical performance of this test has been independently validated by the laboratory. A reference range has not been established for this fluid. Comparison of this result with the concentration in blood, serum or plasma is recommended. Ana Wisecamr-Janice PA-C LAB - BODY FLUID ORDERA BLES Final Result [address] [address], [facility] [phone] * ALBUMIN BODY FLUID (09/10/2025 12:27 PM [facility]) Albumin Fluid 0.8 g/dL 09/10/2025 1:09 PM [facility] Fluid Type Peritoneal Fluid 09/10/2025 1:09 PM [facility] Fluid PERITONEAL FLUID / Unknown Collection / Unknown 09/10/2025 12:27 PM [facility] 09/10/2025 12:42 PM [facility] Narrative [facility] - 09/10/2025 1:09 PM [facility] The analytical performance of this test has been independently validated by the laboratory. A reference range has not been established for this fluid. Comparison of this result with the concentration in blood, serum or plasma is recommended. Ana Whaley Fider-Janice PA-C LAB - BODY FLUID ORDERA BLES Final Result Performing Organization Address [facility]/ZIP Co de Phone Number [address] [address], [facility] [phone] * AMYLASE BODY FLUID (09/10/2025 12:27 PM [facility]) Amylase Fluid 23 Not Established For Fluids Units/L 09/10/2025 1:07 PM [facility] Fluid Type Peritoneal Fluid 09/10/2025 1:07 PM [facility] Fluid PERITONEAL FLUID / Unknown Collection / Unknown 09/10/2025 12:27 PM [facility] 09/10/2025 12:42 PM [facility] Narrative [facility] - 09/10/2025 1:07 PM [facility] The analytical performance of this test has been independently validated by the laboratory. A reference range has not been established for this fluid. Comparison of this result with the concentration in blood, serum or plasma is recommended. Ana Weeks PA-C LAB - BODY FLUID ORDERA BLES Final Result Performing Organization Address [facility] Co de Phone Number [address] [address], [facility] [phone] * CYTOLOGY NON-BATH MIX OPERATOR PANEL (STL) (09/10/2025 12:27 PM [facility]) Case Report Medical Cytology Report Case: [id number] Authorizing Provider: Ana Weeks PA-C Collected: 09/10/2025 12:27 PM Ordering Location: [facility] Received: 09/10/2025 01:27 PM Pathologist: Zahida De Los Santos MD Specimen: Ascities Fluid 09/11/2025 9:49 AM [facility] Specimen Adequacy Adequate cellularity for evaluation. 09/11/2025 9:49 AM [facility] Final Diagnosis Ascitic fluid, cytology: - Negative for malignant cells - Specimen consists of reactive mesothelial cells, macrophages and mixed acute and chronic inflammatory cells 09/11/2025 9:49 AM [facility] at 0949 [facility] Clinical History Ascites 09/11/2025 9:49 AM [facility] Gross Description 1 Pap stained Thin Prep slide and 1 cell block H&E from 1075 cc of yellow, slightly cloudy fluid 09/11/2025 9:49 AM [facility] Pathologist Location at [facility] 09/11/2025 9:49 AM [facility] Disclaimer The performance characteristics of all immunohistochemical and indirect immunofluorescence stains (if any) cited in this report were determined by the Histopathology Laboratory of [facility]. Some of these tests rely on the use of analyte-specific reagents and are subject to specific labeling requirements by the US Food and Drug Administration. Such tests were developed by the Histology Laboratory of [facility] and have not been cleared or approved by the FDA. The FDA has determined that such clearance and approval is not necessary. These tests are used for clinical purposes and should not be regarded as investigational or for research. This laboratory is certified under the Clinical Laboratory Improvement Amendments (CLIA) as qualified to perform high complexity clinical laboratory testing. This case has been personally reviewed and interpreted by the attending (teaching) pathologist. 09/11/2025 9:49 AM [facility] Embedded Images 09/11/2025 9:49 AM [facility] Pathology/Cytolo gy ASCITIC FLUID SPECIMEN / Unknown Collection / Unknown 09/10/2025 12:27 PM [facility] 09/10/2025 1:27 PM [facility] Ana Weeks PA-C LAB - PATHOLOGY/CYTOLOG Y ORDERABLES Final Result [facility] [address] [phone] * DIFFERENTIAL MANUAL FLUID (09/10/2025 12:27 PM [facility]) Fluid Source Peritoneal 09/10/2025 1:10 PM [facility] Body Fluid Total Cell Count 200 x10E6/L 09/10/2025 1:10 PM [facility] Neutrophils Fluid Percent 4 % 09/10/2025 1:10 PM [facility] [facility] Lymphocytes Fluid Percent 56 % 09/10/2025 1:10 PM [facility] Macrophages Fluid Percent 38 % 09/10/2025 1:10 PM [facility] Mesothelial Cells Fluid Percent 2 % 09/10/2025 1:10 PM [facility] Fluid PERITONEAL FLUID / Unknown Collection / Unknown 09/10/2025 12:27 PM [facility] 09/10/2025 12:43 PM [facility] Narrative [facility] - 09/10/2025 1:10 PM [facility] No reference ranges established for body fluid differential cell counts. The test results must be integrated into the clinical context for interpretation. Ana Weeks PA-C LAB - BODY FLUID ORDERA BLES Final Result [facility] [address] [place] [address], [facility] [phone] * CULTURE FLUID+GRAM STAIN (09/10/2025 12:27 PM [facility]) Culture No growth ALESSANDRO 09/16/2025 2:14 PM [facility] MICROBIOLOGY Other PERITONEAL FLUID / Unknown Collection / Unknown 09/10/2025 12:27 PM [facility] 09/10/2025 12:43 PM [facility] Narrative [facility] MICROBIOLOGY - 09/16/2025 2:14 PM [facility] Bottles only, no gram stain. Ana Weeks PA-C LAB - MICROBIOLOGY ORDE RABLES Final Result [facility] MICROBIOLOGY [address] [place] [address], [facility] [phone] * CELL COUNT W DIFFERENTIAL FLUID (09/10/2025 12:27 PM [facility]) Fluid Source Peritoneal 09/10/2025 1:10 PM [facility] Fluid Appearance CLEAR 09/10/2025 1:10 PM [facility] Fluid Color YELLOW 09/10/2025 1:10 PM [facility] Total Nucleated Cells Fluid 162 Reference Range Not Established x10E6/L 09/10/2025 1:10 PM [facility] RBC Count Fluid <2,000 Reference Range Not Established x10E6/L 09/10/2025 1:10 PM [facility] Fluid PERITONEAL FLUID / Unknown Collection / Unknown 09/10/2025 12:27 PM [facility] 09/10/2025 12:43 PM [facility] Narrative [facility] - 09/10/2025 1:10 PM [facility] No reference ranges established for body fluid cell counts. Any reference ranges provided are derived from published literature. The test results must be integrated into the clinical context for interpretation. us Ana Weeks PA-C LAB - BODY FLUID ORDERA BLES Final Result Performing Organization Address City/[facility]/ZIP Co de Phone Number [place] [phone] [phone] * REF LAB-SPECIMEN STATUS REPORT (09/03/2025 10:12 AM [facility]) Specimen Status Report Comment [facility] INSURANCE BILL Comment: Mulu Barrowrev CMP14 Default Mulu Abbre CMP14 Default A hand-written panel/profile was received from your office. In accordance with the [facility] Ambiguous Test Code Policy dated April 2003, we have completed your order by using the closest currently or formerly recognized AMA panel. We have assigned Comprehensive Metabolic Panel (14), Test Code #836444 to this request. If this is not the testing you wished to receive on this specimen, please contact the [facility] Client Inquiry/Technical Services Department to clarify the test order. We appreciate your business. 09/03/2025 10:1 2 AM [facility] 09/03/2025 Narrative [facility] INSURANCE BILL - 09/04/2025 7:09 AM [facility] Performed at: - [address] [id number] Personnel Placement Specialist: Adalid Arana PhD, Phone: [phone] us Humphrey Esquivel MD LAB - CHEMISTRY OR DERABLES Final Result [facility] INSURANCE BILL [address] [place] [address] * ALPHA FETOPROTEIN BLOOD TUMOR MARKER (09/03/2025 10:12 AM [facility]) [facility] Alpha-Fetoprotein Tumor Marker 2.8 0.0 - 8.7 ng/mL [facility] INSURANCE BILL Comment: [facility] Electrochemiluminescence Immunoassay (ECLIA) Values obtained with different assay methods or kits cannot be used interchangeably. Results cannot be interpreted as absolute evidence of the presence or absence of malignant disease. This test is not interpretable in females. Blood BLOOD SPECIMEN / Unknown 09/03/2025 10:12 AM [facility] 09/03/2025 Narrative [facility] INSURANCE BILL - 09/04/2025 1:10 PM [facility] Performed at: - [address] [id number] Personnel Placement Specialist: Adalid Arana PhD, Phone: [phone] Humphrey Esquivel MD LAB - CHEMISTRY OR DERABLES Final Result [facility] INSURANCE BILL [address] [place] [address] * IMAGING/RADIOLOGY/XRAY RESULTS ORDER (07/26/2025) Anatomical Region Laterality Modality Other 07/26/2025 Narrative 07/26/2025 Ordered by an unspecified provider. us Scanned Document IMAGING Final Result * MICROALB/CREAT RATIO URINE (EXTERNAL RESULT ENTRY) (08/27/2020) [facility] Microalb/Creat Ratio (EXTERNAL RESULT) 0 0 - [...] Recently Relevant to Health Maintenance Insurance MEDICARE [facility] SELF PAY NO INSURANCE Member Subscriber Plan / Payer (Ef fective for All Dates) Name:Maggie Erazo Member ID:Not on file Relation to Subscriber:Not on file Name:MAGGIE ERAZO Subscriber ID:Not on file (Home) Address: [address] [place] [id number] Payer ID:Not on file Group ID:Not on file Type:Self Pay Address: [place], [place] MEDICARE Care Teams Lean Process Deployment Consultant Relationship Specialty Start Date End Date Unknown, Provider PCP - General 10/23/24
[2025-10-08 17:11] LABS: Add Urine Microscopic? YES; Appearance Urine Turbid (Clear); Glucose Urine UA Negative (Negative); Leukocyte Esterase Ur 3+ LEU/UL (Negative); Need Manual Microscopic Reviewed; Nitrate Urine Negative (Negative); Specific Grav Ur 1.013 (1.001-1.035)
== END 2025-10-08 16:31 | disposition home or self-care (01) ==
PROVIDERS: PCP Family Medicine; Visit Provider Family Medicine
DX: N39.0 Urinary tract infection, site not specified (principal)
CPT/HCPCS: 81001; 87086; 87186